=== PATIENT | female | born 1965 ===

== ENCOUNTER → 2020-05-26 08:18 | Outpatient (BNVA) | payer OTHER, SELFPAY | PROVIDERS: PCP Physician Assistant; Visit Provider Internal Medicine | DX: I26.99 Other pulmonary embolism without acute cor pulmonale (principal); Z51.81 Encounter for therapeutic drug level monitoring; Z79.01 Long term (current) use of anticoagulants | CPT/HCPCS: 85610 ==

== ENCOUNTER 2020-05-31 16:06 | Outpatient (REF) | payer OTHER, SELFPAY ==
[2020-05-31 17:17] LABS: Cholesterol 292 mg/dL; HDL Cholesterol 36 mg/dL; Triglycerides 622 mg/dL
[2020-05-31 17:39] LABS: Free T4 (Free Thyroxine) 1.47 ng/dL (0.71-1.85); Thyroid Stimulating Hormone 0.58 mIU/mL (0.32-4.0); Vitamin D 25-OH Total 14.9 ng/mL (>30)
[2020-06-01 08:37] LABS: LDL Cholesterol Direct 133 mg/dL (<100)
== END 2020-05-31 16:07 | disposition home or self-care (01) ==
LOC: HO.LAB 16:06
PROVIDERS: PCP Physician Assistant; Visit Provider Internal Medicine Endocrinology, Diabetes & Metabolism
DX: R73.03 Prediabetes (principal); M32.14 Glomerular disease in systemic lupus erythematosus; E55.9 Vitamin D deficiency, unspecified; Z79.01 Long term (current) use of anticoagulants
CPT/HCPCS: 80061; 82306; 83721; 84439; 84443

== ENCOUNTER → 2020-06-01 14:18 | Outpatient (BNVA) | payer OTHER, SELFPAY | PROVIDERS: PCP Physician Assistant; Referring Provider Physician Assistant; Visit Provider Internal Medicine Endocrinology, Diabetes & Metabolism | DX: Z76.89 Persons encountering health services in other specified circumstances (principal) ==

== ENCOUNTER → 2020-06-23 16:01 | Outpatient (BNVA) | payer OTHER, SELFPAY | PROVIDERS: PCP Physician Assistant; Visit Provider Internal Medicine | DX: I26.99 Other pulmonary embolism without acute cor pulmonale (principal); Z51.81 Encounter for therapeutic drug level monitoring; Z79.01 Long term (current) use of anticoagulants | CPT/HCPCS: 85610; 99211 ==

== ENCOUNTER → 2020-06-30 15:22 | Outpatient (BNVA) | payer OTHER, SELFPAY | PROVIDERS: PCP Physician Assistant; Visit Provider Internal Medicine | DX: I26.99 Other pulmonary embolism without acute cor pulmonale (principal); Z79.01 Long term (current) use of anticoagulants; Z51.81 Encounter for therapeutic drug level monitoring | CPT/HCPCS: 85610; 99211 ==

== ENCOUNTER → 2020-07-09 16:16 | Outpatient (BNVA) | payer OTHER, SELFPAY | PROVIDERS: PCP Physician Assistant; Referring Provider Physician Assistant; Visit Provider Internal Medicine | DX: I26.99 Other pulmonary embolism without acute cor pulmonale (principal); Z51.81 Encounter for therapeutic drug level monitoring; Z79.01 Long term (current) use of anticoagulants | CPT/HCPCS: 85610; 99211 ==

== ENCOUNTER → 2020-07-23 16:06 | Outpatient (BNVA) | payer OTHER, SELFPAY | PROVIDERS: PCP Physician Assistant; Visit Provider Internal Medicine | DX: I26.99 Other pulmonary embolism without acute cor pulmonale (principal); Z51.81 Encounter for therapeutic drug level monitoring; Z79.01 Long term (current) use of anticoagulants | CPT/HCPCS: 85610; 99211 ==

== ENCOUNTER → 2020-07-28 16:08 | Outpatient (BNVA) | payer OTHER, SELFPAY | PROVIDERS: PCP Physician Assistant; Visit Provider Internal Medicine | DX: I26.99 Other pulmonary embolism without acute cor pulmonale (principal); Z79.01 Long term (current) use of anticoagulants; Z51.81 Encounter for therapeutic drug level monitoring | CPT/HCPCS: 85610; 99211 ==

== ENCOUNTER 2020-09-11 07:37 | Outpatient (REF) | payer OTHER, SELFPAY ==
[2020-09-11 08:43] LABS: MANUAL DIFF FLAG NO
[2020-09-11 08:51] LABS: Basophils Percent Auto 0.7 % (0-2); Eosinophils Absolute Auto 0.2 X10*3/uL (0.0-0.4); Eosinophils Percent Auto 3.1 % (0-4); Hematocrit 36.1 % (37-47); Hemoglobin 11.6 g/dl (12.0-16.0); Imm Gran Abs Auto 0.02 X10*3/uL (0.00-0.03); Imm Gran Pct Auto 0.3 % (0.0-0.4); Lymphocytes Absolute Auto 1.5 X10*3/uL (1.2-4.9); Lymphocytes Percent Auto 23.9 % (20-40); Mean Corpuscular HGB Conc 32.1 g/dl (31.0-35.0); Mean Corpuscular Hemoglobin 30.3 pg (27.0-33.0); Mean Corpuscular Volume 94.3 fL (80-98); Mean Platelet Volume 10.5 fL (9.4-12.3); Monocytes Absolute Auto 0.4 X10*3/uL (0.1-1.2); Monocytes Percent Auto 6.6 % (2-11); Neutrophils Percent Auto 65.4 % (45-73); Platelet Count 273 X10*3/uL (160-400); Red Blood Count 3.83 X10*6/uL (4.20-5.50); Red Cell Distribution Width 12.4 % (11.0-16.0); White Blood Count 6.1 X10*3/uL (4.8-10.8)
[2020-09-11 09:06] LABS: Blood Urea Nitrogen 22 mg/dL (9-16); Calcium 8.8 mg/dL (8.4-10.2); Estimated Glomerular Filt Rate 26
[2020-09-11 09:37] LABS: Anion Gap 9 (12-20); Carbon Dioxide 19 mmol/L (22-29); Chloride 117 mmol/L (96-108); Sodium 141 mmol/L (135-145)
[2020-09-13 15:02] LABS: Complement C3 107 mg/dL (83-193)
== END 2020-09-11 07:38 | disposition home or self-care (01) ==
LOC: HO.LAB 07:37
PROVIDERS: PCP Physician Assistant; Visit Provider Internal Medicine Hypertension Specialist
DX: N18.1 Chronic kidney disease, stage 1 (principal); N08 Glomerular disorders in diseases classified elsewhere
CPT/HCPCS: 36415; 80051; 82310; 82565; 84520; 85025; 86160

== ENCOUNTER → 2020-09-21 16:10 | Outpatient (BNVA) | payer OTHER, SELFPAY | PROVIDERS: PCP Physician Assistant; Visit Provider Internal Medicine | DX: I26.99 Other pulmonary embolism without acute cor pulmonale (principal); Z51.81 Encounter for therapeutic drug level monitoring; Z79.01 Long term (current) use of anticoagulants | CPT/HCPCS: 85610; 99211 ==

== ENCOUNTER → 2020-09-27 16:02 | Outpatient (BNVA) | payer OTHER, SELFPAY | PROVIDERS: PCP Physician Assistant; Visit Provider Internal Medicine | DX: I26.99 Other pulmonary embolism without acute cor pulmonale (principal); Z51.81 Encounter for therapeutic drug level monitoring; Z79.01 Long term (current) use of anticoagulants | CPT/HCPCS: 85610; 99211 ==

== ENCOUNTER → 2020-09-30 15:51 | Outpatient (BNVA) | payer OTHER, SELFPAY | PROVIDERS: PCP Physician Assistant; Visit Provider Internal Medicine | DX: I26.99 Other pulmonary embolism without acute cor pulmonale (principal); Z51.81 Encounter for therapeutic drug level monitoring; Z79.01 Long term (current) use of anticoagulants | CPT/HCPCS: 85610; 99211 ==

== ENCOUNTER → 2020-10-18 16:08 | Outpatient (BNVA) | payer OTHER, SELFPAY | PROVIDERS: PCP Physician Assistant; Visit Provider Internal Medicine | DX: I26.99 Other pulmonary embolism without acute cor pulmonale (principal); Z51.81 Encounter for therapeutic drug level monitoring; Z79.01 Long term (current) use of anticoagulants | CPT/HCPCS: 85610; 99211 ==

== ENCOUNTER → 2020-11-03 16:06 | Outpatient (BNVA) | payer OTHER, SELFPAY | PROVIDERS: PCP Physician Assistant; Visit Provider Internal Medicine | DX: I26.99 Other pulmonary embolism without acute cor pulmonale (principal); Z51.81 Encounter for therapeutic drug level monitoring; Z79.01 Long term (current) use of anticoagulants | CPT/HCPCS: 85610; 99211 ==

== ENCOUNTER 2020-11-06 08:27 | Outpatient (REF) | payer OTHER, SELFPAY ==
[2020-11-06 09:42] LABS: Blood Urea Nitrogen 30 mg/dL (9-16); Calcium 9.2 mg/dL (8.4-10.2); Estimated Glomerular Filt Rate 28; Glucose Fasting 117 mg/dL (60-99)
[2020-11-06 10:24] LABS: Anion Gap 11 (12-20); Carbon Dioxide 18 mmol/L (22-29); Chloride 117 mmol/L (96-108); Potassium 3.8 mmol/L (3.3-5.1); Sodium 142 mmol/L (135-145)
== END 2020-11-06 08:28 | disposition home or self-care (01) ==
LOC: HO.LAB 08:27
PROVIDERS: PCP Physician Assistant; Visit Provider Internal Medicine Hypertension Specialist
DX: M32.14 Glomerular disease in systemic lupus erythematosus (principal)
CPT/HCPCS: 36415; 80048

== ENCOUNTER → 2020-12-08 16:12 | Outpatient (BNVA) | payer OTHER, SELFPAY | PROVIDERS: PCP Physician Assistant; Visit Provider Internal Medicine | DX: I26.99 Other pulmonary embolism without acute cor pulmonale (principal); Z51.81 Encounter for therapeutic drug level monitoring; Z79.01 Long term (current) use of anticoagulants | CPT/HCPCS: 85610; 99211 ==

== ENCOUNTER → 2020-12-22 16:05 | Outpatient (BNVA) | payer OTHER, SELFPAY | PROVIDERS: PCP Physician Assistant; Visit Provider Internal Medicine | DX: I26.99 Other pulmonary embolism without acute cor pulmonale (principal); Z51.81 Encounter for therapeutic drug level monitoring; Z79.01 Long term (current) use of anticoagulants | CPT/HCPCS: 85610; 99211 ==

== ENCOUNTER → 2021-01-07 08:59 | Outpatient (BNVA) | payer OTHER, SELFPAY | PROVIDERS: PCP Physician Assistant; Visit Provider Internal Medicine Endocrinology, Diabetes & Metabolism ==

== ENCOUNTER 2021-01-15 10:21 | Outpatient (REF) | payer OTHER, SELFPAY ==
[2021-01-15 11:42] LABS: Cholesterol 244 mg/dL; HDL Cholesterol 33 mg/dL; Triglycerides 633 mg/dL
[2021-01-15 11:55] LABS: Free T4 (Free Thyroxine) 1.45 ng/dL (0.71-1.85); Thyroid Stimulating Hormone 0.06 uIU/mL (0.32-4.0); Vitamin D 25-OH Total 16.6 ng/mL (>30)
[2021-01-16 09:47] LABS: LDL Cholesterol Direct 82 mg/dL (<100)
== END 2021-01-15 10:22 | disposition home or self-care (01) ==
LOC: HO.LAB 10:21
PROVIDERS: PCP Physician Assistant; Visit Provider Internal Medicine Endocrinology, Diabetes & Metabolism
DX: E78.1 Pure hyperglyceridemia (principal); E03.8 Other specified hypothyroidism; E06.3 Autoimmune thyroiditis; E55.9 Vitamin D deficiency, unspecified
CPT/HCPCS: 36415; 80061; 82306; 83721; 84439; 84443

== ENCOUNTER → 2021-01-19 16:23 | Outpatient (BNVA) | payer OTHER, SELFPAY | PROVIDERS: PCP Physician Assistant; Visit Provider Internal Medicine | DX: I26.99 Other pulmonary embolism without acute cor pulmonale (principal); Z51.81 Encounter for therapeutic drug level monitoring; Z79.01 Long term (current) use of anticoagulants | CPT/HCPCS: 85610; 99211 ==

== ENCOUNTER → 2021-02-11 09:44 | Outpatient (BNVA) | payer OTHER, SELFPAY | PROVIDERS: PCP Physician Assistant; Visit Provider Internal Medicine | DX: I26.99 Other pulmonary embolism without acute cor pulmonale (principal); Z51.81 Encounter for therapeutic drug level monitoring; Z79.01 Long term (current) use of anticoagulants | CPT/HCPCS: 85610; 99211 ==

== ENCOUNTER → 2021-05-06 16:31 | Outpatient (BNVA) | payer OTHER, SELFPAY | PROVIDERS: PCP Physician Assistant; Visit Provider Internal Medicine | DX: I26.99 Other pulmonary embolism without acute cor pulmonale (principal); Z51.81 Encounter for therapeutic drug level monitoring; Z79.01 Long term (current) use of anticoagulants | CPT/HCPCS: 85610; 99211 ==

== ENCOUNTER → 2021-06-03 14:53 | Outpatient (BNVA) | payer OTHER, SELFPAY | PROVIDERS: PCP Physician Assistant; Visit Provider Internal Medicine | DX: I26.99 Other pulmonary embolism without acute cor pulmonale (principal); Z51.81 Encounter for therapeutic drug level monitoring; Z79.01 Long term (current) use of anticoagulants | CPT/HCPCS: 85610; 99211 ==

== ENCOUNTER → 2021-06-29 15:34 | Outpatient (BNVA) | payer OTHER, MEDICAID, SELFPAY | PROVIDERS: PCP Physician Assistant; Visit Provider Internal Medicine | DX: I26.99 Other pulmonary embolism without acute cor pulmonale (principal); Z51.81 Encounter for therapeutic drug level monitoring; Z79.01 Long term (current) use of anticoagulants | CPT/HCPCS: 85610; 99211 ==

== ENCOUNTER 2021-07-05 16:20 | Outpatient (REF) | payer OTHER, MEDICAID, SELFPAY ==
[2021-07-05 18:13] LABS: Anion Gap 11 (12-20); Blood Urea Nitrogen 32 mg/dL (9-16); Calcium 10.1 mg/dL (8.4-10.2); Carbon Dioxide 17 mmol/L (22-29); Chloride 116 mmol/L (96-108); Estimated Glomerular Filt Rate 26; Glucose Random 98 mg/dL (60-115); Potassium 3.8 mmol/L (3.3-5.1); Sodium 140 mmol/L (135-145)
[2021-07-05 18:31] LABS: Free T4 (Free Thyroxine) 1.52 ng/dL (0.71-1.85); Thyroid Stimulating Hormone 0.01 uIU/mL (0.32-4.0)
[2021-07-07 04:57] LABS: Triiodothyronine T3 Total 84 ng/dL (76-181)
[2021-07-08 15:26] LABS: Thyroid Stimulating Immunoglob <89 % baseline (<140)
[2021-07-08 21:42] LABS: Thyrotropin Receptor Antibody <1.00 IU/L (<=2.00)
[2021-07-11 11:21] LABS: FT4 by Equilib. Dialysis 2.8 ng/dL (0.9-2.2)
== END 2021-07-05 16:21 | disposition home or self-care (01) ==
LOC: HO.LAB 16:20
PROVIDERS: Absent Provider Internal Medicine Hypertension Specialist; PCP Physician Assistant; Visit Provider Internal Medicine Endocrinology, Diabetes & Metabolism
DX: M32.14 Glomerular disease in systemic lupus erythematosus (principal); E03.8 Other specified hypothyroidism; E06.3 Autoimmune thyroiditis
CPT/HCPCS: 36415; 80048; 83520; 84439; 84443; 84445; 84480

== ENCOUNTER → 2021-07-07 07:20 | Outpatient (BNVA) | payer OTHER, MEDICAID, SELFPAY | PROVIDERS: PCP Physician Assistant; Visit Provider Internal Medicine ==

== ENCOUNTER 2021-08-04 10:41 | Outpatient (REF) | payer OTHER, MEDICAID, SELFPAY ==
[2021-08-04 12:26] LABS: COVID-19 Test Negative (Negative)
== END 2021-08-04 10:42 | disposition home or self-care (01) ==
LOC: HO.LAB 10:41
PROVIDERS: Visit Provider Internal Medicine
DX: Z20.822 Contact with and (suspected) exposure to COVID-19 (principal)
CPT/HCPCS: 36415; 87635; C9803

== ENCOUNTER → 2021-08-25 16:07 | Outpatient (BNVA) | payer OTHER, MEDICAID, SELFPAY | PROVIDERS: PCP Physician Assistant; Visit Provider Internal Medicine | DX: I26.99 Other pulmonary embolism without acute cor pulmonale (principal); Z51.81 Encounter for therapeutic drug level monitoring; Z79.01 Long term (current) use of anticoagulants | CPT/HCPCS: 85610; 99211 ==

== ENCOUNTER → 2021-09-22 16:23 | Outpatient (BNVA) | payer OTHER, MEDICAID, SELFPAY | PROVIDERS: PCP Physician Assistant; Visit Provider Internal Medicine | DX: I26.99 Other pulmonary embolism without acute cor pulmonale (principal); Z51.81 Encounter for therapeutic drug level monitoring; Z79.01 Long term (current) use of anticoagulants | CPT/HCPCS: 85610; 99211 ==

== ENCOUNTER → 2021-10-06 16:13 | Outpatient (BNVA) | payer OTHER, MEDICAID, SELFPAY | PROVIDERS: PCP Physician Assistant; Visit Provider Internal Medicine | DX: I26.99 Other pulmonary embolism without acute cor pulmonale (principal); Z51.81 Encounter for therapeutic drug level monitoring; Z79.01 Long term (current) use of anticoagulants | CPT/HCPCS: 85610; 99211 ==

== ENCOUNTER 2021-10-15 07:58 | Outpatient (REF) | payer OTHER, MEDICAID, SELFPAY ==
[2021-10-15 09:49] LABS: Alanine Aminotransferase 25 U/L (0-31); Albumin Level 3.5 g/dL (3.5-5.0); Alkaline Phosphatase 113 U/L (39-117); Anion Gap 10 (12-20); Aspartate Amino Transferase 27 U/L (5-31); Bilirubin Total 0.6 mg/dL (0.0-1.0); Blood Urea Nitrogen 42 mg/dL (9-16); Calcium 10.5 mg/dL (8.4-10.2); Carbon Dioxide 18 mmol/L (22-29); Chloride 116 mmol/L (96-108); Cholesterol 208 mg/dL; Estimated Glomerular Filt Rate 27; Glucose Random 101 mg/dL (60-115); HDL Cholesterol 31 mg/dL; LDL Cholesterol Calculated 117 mg/dl; Potassium 4.5 mmol/L (3.3-5.1); Sodium 139 mmol/L (135-145); Total Protein 6.8 g/dL (6.5-8.0); Triglycerides 301 mg/dL
[2021-10-15 09:57] LABS: Creatinine Urine 85.43 mg/dL
[2021-10-15 10:08] LABS: Protein/Creatinine Ratio, Ur 8.18 (<0.2); Total Protein Urine Random 699 mg/dL (<12)
[2021-10-15 10:12] LABS: Free T4 (Free Thyroxine) 1.67 ng/dL (0.71-1.85); Thyroid Stimulating Hormone 0.01 uIU/mL (0.32-4.0)
[2021-10-17 05:21] LABS: LDL Cholesterol Direct 105 mg/dL (<100)
[2021-10-17 17:16] LABS: Thyroglobulin Antibodies >1000 IU/mL (< or = 1); Thyroid Peroxidase Antibodies 1 IU/mL (<9)
== END 2021-10-15 07:59 | disposition home or self-care (01) ==
LOC: HO.LAB 07:58
PROVIDERS: Absent Provider Internal Medicine Hypertension Specialist; PCP Physician Assistant; Visit Provider Internal Medicine
DX: E55.9 Vitamin D deficiency, unspecified (principal); N18.4 Chronic kidney disease, stage 4 (severe); E03.8 Other specified hypothyroidism; E06.3 Autoimmune thyroiditis; E78.1 Pure hyperglyceridemia
CPT/HCPCS: 36415; 80053; 80061; 82306; 83721; 84156; 84439; 84443; 86376; 86800

== ENCOUNTER → 2021-10-19 07:31 | Outpatient (BNVA) | payer OTHER, MEDICAID, SELFPAY | PROVIDERS: PCP Physician Assistant; Visit Provider Internal Medicine | DX: E06.3 Autoimmune thyroiditis (principal); E03.8 Other specified hypothyroidism; E55.9 Vitamin D deficiency, unspecified; E78.1 Pure hyperglyceridemia; F17.210 Nicotine dependence, cigarettes, uncomplicated; Z79.899 Other long term (current) drug therapy | CPT/HCPCS: Q3014 ==

== ENCOUNTER 2021-11-10 15:11 | Outpatient (REF) | payer OTHER, MEDICAID, SELFPAY ==
--- NOTE | ~2021-11-10 | US_ITS ---
EXAMINATION: US THYROID CLINICAL INFORMATION: Other specified hypothyroidism COMPARISON: None TECHNIQUE: Linear transducer grayscale and color Doppler examination with attention to the region of the thyroid. FINDINGS: SIZE: Measurements of the thyroid lobes and nodules are given in sagittal, anteroposterior and transverse dimensions respectively. Right Thyroid Lobe: 2.3 x 0.7 x 0.86 cm, volume 0.74 mL. Parenchyma: The gland echotexture is homogeneous. Thyroid vascularity is normal. Left Thyroid Lobe: 1.34 x 0.42 x 0.45 cm, volume 0.13 mL. Parenchyma: The gland echotexture is homogeneous. Thyroid vascularity is normal. Isthmus: 0.27 cm in maximum AP dimension. No focal thyroid nodule is seen. NODES: No lymphadenopathy is seen in the tissue surrounding the thyroid gland. US/US thyroid IMPRESSION: Very small thyroid gland. No nodule seen.
== END 2021-11-10 15:12 | disposition home or self-care (01) ==
LOC: HO.HMGCX 15:11
PROVIDERS: PCP Physician Assistant; Visit Provider Internal Medicine
DX: E03.8 Other specified hypothyroidism (principal); E06.3 Autoimmune thyroiditis
CPT/HCPCS: 76536

== ENCOUNTER → 2021-11-17 16:20 | Outpatient (BNVA) | payer OTHER, MEDICAID, SELFPAY | PROVIDERS: PCP Physician Assistant; Visit Provider Internal Medicine | DX: I26.99 Other pulmonary embolism without acute cor pulmonale (principal); Z79.01 Long term (current) use of anticoagulants; Z51.81 Encounter for therapeutic drug level monitoring | CPT/HCPCS: 85610; 99211 ==

== ENCOUNTER → 2021-11-25 16:17 | Outpatient (BNVA) | payer OTHER, MEDICAID, SELFPAY | PROVIDERS: PCP Physician Assistant; Visit Provider Internal Medicine | DX: I26.99 Other pulmonary embolism without acute cor pulmonale (principal); Z79.01 Long term (current) use of anticoagulants; Z51.81 Encounter for therapeutic drug level monitoring | CPT/HCPCS: 85610; 99211 ==

== ENCOUNTER → 2021-12-09 16:09 | Outpatient (BNVA) | payer OTHER, MEDICAID, SELFPAY | PROVIDERS: PCP Physician Assistant; Visit Provider Internal Medicine | DX: I26.99 Other pulmonary embolism without acute cor pulmonale (principal); Z79.01 Long term (current) use of anticoagulants; Z51.81 Encounter for therapeutic drug level monitoring | CPT/HCPCS: 85610; 99211 ==

== ENCOUNTER → 2021-12-16 16:16 | Outpatient (BNVA) | payer OTHER, MEDICAID, SELFPAY | PROVIDERS: PCP Physician Assistant; Visit Provider Internal Medicine | DX: I26.99 Other pulmonary embolism without acute cor pulmonale (principal); Z79.01 Long term (current) use of anticoagulants; Z51.81 Encounter for therapeutic drug level monitoring | CPT/HCPCS: 85610; 99211 ==

== ENCOUNTER → 2021-12-26 16:16 | Outpatient (BNVA) | payer OTHER, MEDICAID, SELFPAY | PROVIDERS: PCP Physician Assistant; Visit Provider Internal Medicine | DX: I26.99 Other pulmonary embolism without acute cor pulmonale (principal); Z79.01 Long term (current) use of anticoagulants; Z51.81 Encounter for therapeutic drug level monitoring | CPT/HCPCS: 85610; 99211 ==

== ENCOUNTER 2022-01-07 07:00 | Outpatient (REF) | payer OTHER, MEDICAID, SELFPAY ==
[2022-01-07 07:57] LABS: Hematocrit 37.6 % (37.0-47.0); Mean Corpuscular HGB Conc 31.9 g/dl (31.0-35.0); Mean Corpuscular Hemoglobin 30.4 pg (27.0-33.0); Mean Corpuscular Volume 95.2 fL (80.0-98.0); Platelet Count 279 X10*3/uL (160-400); Red Blood Count 3.95 X10*6/uL (4.20-5.50); Red Cell Distribution Width 13.5 % (11.0-16.0); White Blood Count 6.2 X10*3/uL (4.8-10.8)
[2022-01-07 08:18] LABS: Appearance Urine CLEAR; Color Urine YELLOW; Glucose Urine UA 250 MG/DL (NEG); Leukocyte Esterase Urine NEG (NEG); Nitrite Urine NEG (NEG); PH 6.5 (5.0-8.0); Urine Blood 2+ (NEG); Urine Ketones NEG (NEG); Urine Protein 3+ MG/DL (NEG-TRACE)
[2022-01-07 08:40] LABS: Creatinine Urine 78.86 mg/dL
[2022-01-07 08:44] LABS: Anion Gap 13 (12-20); Blood Urea Nitrogen 37 mg/dL (9-16); Calcium 9.4 mg/dL (8.4-10.2); Carbon Dioxide 17 mmol/L (22-29); Chloride 118 mmol/L (96-108); Estimated Glomerular Filt Rate 15; Potassium 4.4 mmol/L (3.3-5.1); Sodium 141 mmol/L (135-145)
[2022-01-07 08:49] LABS: Squamous Epithelial Cell Urine 2+ /LPF
[2022-01-07 08:56] LABS: Protein/Creatinine Ratio, Ur 13.83 (<0.2); Total Protein Urine Random 1091 mg/dL (<12)
[2022-01-09 15:53] LABS: Calcium (PTHI) 9.4 mg/dL (8.6-10.4); PTHI 114 pg/mL (16-77)
== END 2022-01-07 07:01 | disposition home or self-care (01) ==
LOC: HO.LAB 07:00
PROVIDERS: Absent Provider Internal Medicine Hypertension Specialist; PCP Physician Assistant; Visit Provider Internal Medicine
DX: N18.4 Chronic kidney disease, stage 4 (severe) (principal); M32.14 Glomerular disease in systemic lupus erythematosus
CPT/HCPCS: 36415; 80051; 81001; 81003; 82310; 82565; 83970; 84156; 84520; 85027

== ENCOUNTER → 2022-01-09 16:12 | Outpatient (BNVA) | payer OTHER, MEDICAID, SELFPAY | PROVIDERS: PCP Physician Assistant; Visit Provider Internal Medicine | DX: I26.99 Other pulmonary embolism without acute cor pulmonale (principal); Z51.81 Encounter for therapeutic drug level monitoring; Z79.01 Long term (current) use of anticoagulants | CPT/HCPCS: 85610; 99211 ==

== ENCOUNTER 2022-01-30 06:22 | Outpatient (REF) | payer OTHER, MEDICAID, SELFPAY ==
[2022-01-30 08:17] LABS: Alanine Aminotransferase 26 U/L (0-31); Albumin Level 3.1 g/dL (3.5-5.0); Alkaline Phosphatase 109 U/L (39-117); Anion Gap 9 (12-20); Aspartate Amino Transferase 69 U/L (5-31); Bilirubin Total 0.4 mg/dL (0.0-1.0); Blood Urea Nitrogen 41 mg/dL (9-16); Carbon Dioxide 18 mmol/L (22-29); Chloride 117 mmol/L (96-108); Cholesterol 268 mg/dL; Estimated Glomerular Filt Rate 15; Glucose Random 108 mg/dL (60-115); HDL Cholesterol 35 mg/dL; LDL Cholesterol Calculated 158 mg/dl; Potassium 4.1 mmol/L (3.3-5.1); Sodium 140 mmol/L (135-145); Triglycerides 379 mg/dL
[2022-01-30 08:33] LABS: Free T4 (Free Thyroxine) 1.15 ng/dL (0.71-1.85); Thyroid Stimulating Hormone 0.05 uIU/mL (0.32-4.0); Vitamin D 25-OH Total 17.2 ng/mL (>30)
[2022-01-31 15:52] LABS: Calcium (PTHI) 9.2 mg/dL (8.6-10.4); PTHI 157 pg/mL (16-77)
[2022-02-01 04:29] LABS: LDL Cholesterol Direct 128 mg/dL (<100)
== END 2022-01-30 06:23 | disposition home or self-care (01) ==
LOC: HO.LAB 06:22
PROVIDERS: PCP Physician Assistant; Visit Provider Internal Medicine
DX: E06.3 Autoimmune thyroiditis (principal); E55.9 Vitamin D deficiency, unspecified; E78.1 Pure hyperglyceridemia; E03.8 Other specified hypothyroidism
CPT/HCPCS: 36415; 80053; 80061; 82306; 83721; 83970; 84100; 84439; 84443

== ENCOUNTER → 2022-02-02 16:10 | Outpatient (BNVA) | payer OTHER, MEDICAID, SELFPAY | PROVIDERS: PCP Physician Assistant; Visit Provider Internal Medicine | DX: I26.99 Other pulmonary embolism without acute cor pulmonale (principal); Z51.81 Encounter for therapeutic drug level monitoring; Z79.01 Long term (current) use of anticoagulants | CPT/HCPCS: 85610; 99211 ==

== ENCOUNTER → 2022-02-23 16:09 | Outpatient (BNVA) | payer OTHER, MEDICAID, SELFPAY | PROVIDERS: PCP Physician Assistant; Visit Provider Internal Medicine | DX: I26.99 Other pulmonary embolism without acute cor pulmonale (principal); Z51.81 Encounter for therapeutic drug level monitoring; Z79.01 Long term (current) use of anticoagulants | CPT/HCPCS: 85610; 99211 ==

== ENCOUNTER 2022-03-08 06:08 | Outpatient (REF) | payer OTHER, MEDICAID, SELFPAY ==
[2022-03-08 07:34] LABS: Hemoglobin 11.3 g/dl (12.0-16.0); Mean Corpuscular HGB Conc 32.3 g/dl (31.0-35.0); Mean Corpuscular Hemoglobin 30.5 pg (27.0-33.0); Mean Corpuscular Volume 94.6 fL (80.0-98.0); Mean Platelet Volume 10.9 fL (9.4-12.3); Platelet Count 271 X10*3/uL (160-400); Red Cell Distribution Width 13.2 % (11.0-16.0); White Blood Count 6.6 X10*3/uL (4.8-10.8)
[2022-03-08 08:03] LABS: Anion Gap 12 (12-20); Blood Urea Nitrogen 37 mg/dL (9-16); Calcium 8.9 mg/dL (8.4-10.2); Carbon Dioxide 15 mmol/L (22-29); Chloride 119 mmol/L (96-108); Estimated Glomerular Filt Rate 14; Potassium 4.3 mmol/L (3.3-5.1); Sodium 142 mmol/L (135-145)
[2022-03-08 08:35] LABS: Appearance Urine HAZY; Color Urine YELLOW; Glucose Urine UA 250 MG/DL (NEG); Leukocyte Esterase Urine NEG (NEG); Nitrite Urine NEG (NEG); PH 6.5 (5.0-8.0); Specific Gravity - Urine 1.015 (1.005-1.025); Urine Blood 2+ (NEG); Urine Ketones NEG (NEG); Urine Protein 3+ MG/DL (NEG-TRACE)
[2022-03-08 08:49] LABS: Squamous Epithelial Cell Urine 2+ /LPF
[2022-03-08 08:52] LABS: Creatinine Urine 84.48 mg/dL
[2022-03-08 09:08] LABS: Protein/Creatinine Ratio, Ur 12.63 (<0.2); Total Protein Urine Random 1067 mg/dL (<12)
[2022-03-09 14:13] LABS: Calcium (PTHI) 9.1 mg/dL (8.6-10.4); PTHI 113 pg/mL (16-77)
== END 2022-03-08 06:09 | disposition home or self-care (01) ==
LOC: HO.LAB 06:08
PROVIDERS: Absent Provider Internal Medicine Hypertension Specialist; PCP Physician Assistant; Visit Provider Internal Medicine
DX: N18.4 Chronic kidney disease, stage 4 (severe) (principal)
CPT/HCPCS: 36415; 80051; 81001; 82310; 82565; 83970; 84156; 84520; 85027

== ENCOUNTER → 2022-03-27 11:26 | Outpatient (BNVA) | payer OTHER, MEDICAID, SELFPAY | PROVIDERS: PCP Physician Assistant; Visit Provider Internal Medicine | DX: I26.99 Other pulmonary embolism without acute cor pulmonale (principal); Z51.81 Encounter for therapeutic drug level monitoring; Z79.01 Long term (current) use of anticoagulants | CPT/HCPCS: 85610; 99211 ==

== ENCOUNTER 2022-04-08 10:43 | Emergency (ER) | payer OTHER, MEDICAID, SELFPAY ==
[2022-04-08 10:45] VITALS: BP 140/91; PULSE 95; RESP 20; TEMP 36.2; O2SAT 97; BMI 22.1
--- NOTE | 2022-04-08 12:17 | ED_ITS ---
HPI - General Adult General Chief complaint: Extremity Injury, Lower Stated complaint: Leg Spasms Time Seen by Provider: 04/08/22 12:03 History of Present Illness HPI narrative: patient complains of muscle cramping in arms and legs getting worse over past few days, there is no back pain, no numbness or weakness, no vomiting She does have renal insufficiency which has been worsening over past recent months and is followed by Renal Related Data Home Medications Medication Instructions Recorded Confirmed prednisone 10 mg tablet 10 mg PO DAILY 06/01/20 04/06/22 fluocinonide 0.05 % topical appl topical 01/07/21 04/06/22 solution gabapentin 100 mg capsule 100 mg PO DAILY 01/07/21 04/06/22 melatonin 1 mg/mL oral liquid 2 mg PO BEDTIME 12/16/21 04/06/22 (Children's Sleep (melatonin)) Previous Rx's Medication Instructions Recorded loratadine 10 mg tablet 10 mg PO DAILY 14 days #14 tabs 06/08/21 fluticasone propionate 50 1 spray intranasal DAILY 14 days 07/04/21 mcg/actuation nasal #150 mL spray,suspension (Flonase Allergy Relief) warfarin 5 mg tablet 5 mg PO DAILY #90 tabs 02/10/22 cholecalciferol (vitamin D3) 50 100 mcg PO DAILY 30 days #60 caps 03/22/22 mcg (2,000 unit) capsule levothyroxine 125 mcg tablet 125 mcg PO DAILY 30 days #30 tabs 03/22/22 clobetasol 0.05 % scalp solution 1 appl topical DAILY #50 mL 04/06/22 lorazepam 0.5 mg tablet 0.5 mg PO BEDTIME anxiety 7 days 04/06/22 #7 tabs lorazepam 0.5 mg tablet (Ativan) 0.5 mg PO BEDTIME PRN muscle 04/08/22 spasm #5 tabs lorazepam 0.5 mg tablet (Ativan) 0.5 mg PO BID PRN muscle spasm 04/08/22 #14 tabs Allergies Allergy/AdvReac Type Severity Reaction Status Date / Time cephalexin [From Keflex] Allergy Unknown RED+ITCHY,R Verified 04/06/22 16:24 BE Cephalosporins Allergy Unknown RED+ITCHY Verified 04/06/22 16:24 [CEPHALOSPORINS] Sulfa (Sulfonamide Allergy Unknown RED+ITCHY Verified 04/06/22 16:24 Antibiotics) [SULFA(SULFONAMIDE ANTIBIOTICS)] Review of Systems Review of Systems: positive for cramping muscles in legs and arms Negatives are no fever no chills no dizziness weakness no fainting no feeling faint no headache no confusion no vision changes no stiff neck no neck pain no chest pain no shortness of breath no palpitations no abdominal pain no nausea vomiting or diarrhea no dysuria no frequency no numbness no weakness no tingling Yes all other systems are reviewed and are negative PMFSH Past Medical History Source: nursing notes reviewed Medical History History of pulmonary embolism Hypertriglyceridemia Hypothyroidism Prediabetes SLE glomerulonephritis syndrome Vitamin D deficiency Surgical History Hx of tubal ligation Family History Family History (Updated 04/06/22 @ 16:31 by Franklin Sanchez PA-C) Father Family history unknown Mother Hypertension Diabetes Deep vein thrombosis CVA (cerebral vascular accident) Brother CVA (cerebral vascular accident), Onset Age: 48 Brother CVA (cerebral vascular accident), Onset Age: 38 Social History Social History (Updated 04/06/22 @ 16:31 by Franklin Sanchez PA-C) Housing: House Alcohol intake: never Patient Tobacco Use Status: Former Tobacco user Quit Date: 03/03/22 e-Cigarette/Vaping Use: Never Used Advance Directives: No Advance Directives Information Provided: Yes service: No Current occupational status: employed Current occupation: [employer] Cognitive needs: No Hearing needs: No Vision needs: No Physical Exam ED Vital Signs: Vital Signs - 24 hr 04/08/22 10:45 04/08/22 12:49 04/08/22 14:53 Temperature 97.2 F 97.5 F Pulse Rate 95 70 71 Respiratory Rate 20 16 Blood Pressure 140/91 H 113/79 132/64 Pulse Oximetry 97 97 99 Oxygen Delivery Method Room Air Room Air Room Air 04/08/22 17:36 Temperature Pulse Rate 77 Respiratory Rate 16 Blood Pressure 120/62 Pulse Oximetry 97 Oxygen Delivery Method Room Air BMI result Body Mass Index 22.1 general appearance is no acute distress Head is normocephalic atraumatic Pupils equal round react light extraocular motions are intact The pharynx is clear mucous membranes moist Neck is supple Chest clear to auscultation bilateral Heart no murmur auscultated Abdomen soft nontender Extremities full range of motion x4 No edema, no calf tenderness or swelling Skin no rash Neuro gait and balance are normal, interaction both expression and comprehension are normal, motor is 5/5 x4, sensation is intact and symmetrical in extremities, cranial nerves 2-12 intact as tested Course Course Course Narrative: patient creatinine is now 3.6 with BUN of 65, GFR was 13 which is somewhat worse than the previous, but potassium is normal, sodium is normal INR was 3.9 Case was discussed with attending physician Andi who advised give a L of fluids as well as increased daily prednisone from 10 mg to 20 mg I also called her life skills consultant as she has had some trouble making an appointment for a biopsy, as well as to communicate the worsening renal function They said they agreed with that plan and discharge the patient and they will follow closely After hydration and an Ativan the patient felt much better with no leg spasm and was tolerating p.o. and ambulating easily and symptom-free and was discharged Medical Decision Making Lab Data Lab results reviewed: Yes I reviewed the patient's lab results. Result diagrams: 04/08/22 12:46 04/08/22 16:17 Labs: Lab Results 04/08/22 04/08/22 04/08/22 Range/Units 12:35 12:35 12:46 WBC 9.5 (4.8-10.8) X10*3/uL RBC 3.86 L (4.20-5.50) X10*6/uL Hgb 11.8 L (12.0-16.0) g/dl Hct 35.1 L (37.0-47.0) % MCV 90.9 (80.0-98.0) fL MCH 30.6 (27.0-33.0) pg MCHC 33.6 (31.0-35.0) g/dl RDW 12.5 (11.0-16.0) % Plt Count 288 (160-400) X10*3/uL MPV 11.1 (9.4-12.3) fL Immature Gran % (Auto) 0.4 (0.0-0.4) % Neut % (Auto) 89.2 H (45-73) % Lymph % (Auto) 8.0 L (20-40) % [place] % (Auto) 2.0 (2-11) % Eos % (Auto) 0.2 (0-4) % Baso % (Auto) 0.2 (0-2) % Lymph # (Auto) 0.8 L (1.2-4.9) X10*3/uL [place] # (Auto) 0.2 (0.1-1.2) X10*3/uL Eos # (Auto) 0.0 (0.0-0.4) X10*3/uL Baso # (Auto) 0.0 (0.0-0.2) X10*3/uL Abs Immat Gran (auto) 0.04 H (0.00-0.03) X10*3/uL Absolute Neuts (auto) 8.5 H (2.0-8.3) x10*3/uL Absolute Nucleated RBC 0.000 (0.0-0.012) X10*3/uL Nucleated RBC % (auto) 0.0 (0.0-0.2) /100WBC PT 47.0 H (10.0-13.1) SEC INR 3.9 H (0.9-1.1) Sodium 137 (135-145) mmol/L Potassium 4.3 (3.3-5.1) mmol/L Chloride 114 H (96-108) mmol/L Carbon Dioxide 13 L (22-29) mmol/L Anion Gap 14 (12-20) BUN 65 H D (9-16) mg/dL Creatinine 3.60 H (0.5-1.4) mg/dL Estim Creat Clear Calc 14.4 Estimated GFR 13 Random Glucose 120 H (60-115) mg/dL Calcium 9.0 (8.4-10.2) mg/dL Total Bilirubin 0.5 (0.0-1.0) mg/dL Direct Bilirubin < 0.2 (0.0-0.5) mg/dL AST 25 D (5-31) U/L ALT 17 (0-31) U/L Alkaline Phosphatase 84 D (39-117) U/L Total Creatine Kinase 272 H (26-140) U/L C-Reactive Protein (< or = 0.50) mg/dL Total Protein 6.1 L (6.5-8.0) g/dL Albumin 3.2 L (3.5-5.0) g/dL Acetone, Qual (Negative) 04/08/22 Range/Units 16:17 WBC (4.8-10.8) X10*3/uL RBC (4.20-5.50) X10*6/uL Hgb (12.0-16.0) g/dl Hct (37.0-47.0) % MCV (80.0-98.0) fL MCH (27.0-33.0) pg MCHC (31.0-35.0) g/dl RDW (11.0-16.0) % Plt Count (160-400) X10*3/uL MPV (9.4-12.3) fL Immature Gran % (Auto) (0.0-0.4) % Neut % (Auto) (45-73) % Lymph % (Auto) (20-40) % [place] % (Auto) (2-11) % Eos % (Auto) (0-4) % Baso % (Auto) (0-2) % Lymph # (Auto) (1.2-4.9) X10*3/uL [place] # (Auto) (0.1-1.2) X10*3/uL Eos # (Auto) (0.0-0.4) X10*3/uL Baso # (Auto) (0.0-0.2) X10*3/uL Abs Immat Gran (auto) (0.00-0.03) X10*3/uL Absolute Neuts (auto) (2.0-8.3) x10*3/uL Absolute Nucleated RBC (0.0-0.012) X10*3/uL Nucleated RBC % (auto) (0.0-0.2) /100WBC PT (10.0-13.1) SEC INR (0.9-1.1) Sodium (135-145) mmol/L Potassium (3.3-5.1) mmol/L Chloride (96-108) mmol/L Carbon Dioxide (22-29) mmol/L Anion Gap (12-20) BUN 63 H (9-16) mg/dL Creatinine 3.44 H (0.5-1.4) mg/dL Estim Creat Clear Calc 15.0 Estimated GFR 14 Random Glucose (60-115) mg/dL Calcium (8.4-10.2) mg/dL Total Bilirubin (0.0-1.0) mg/dL Direct Bilirubin (0.0-0.5) mg/dL AST (5-31) U/L ALT (0-31) U/L Alkaline Phosphatase (39-117) U/L Total Creatine Kinase (26-140) U/L C-Reactive Protein 0.14 (< or = 0.50) mg/dL Total Protein (6.5-8.0) g/dL Albumin (3.5-5.0) g/dL Acetone, Qual Negative (Negative) Discharge Plan Discharge Clinical Impression: Chronic renal insufficiency, Bilateral leg cramps Patient Disposition: Home, Self-Care Additional Instructions: your kidney function has worsened so follow closely with your kidney doctor I left a message with his partner that you have been trying to make an appointment for the biopsy he recommended so called the office on Sunday when they are open and find out when you can follow-up for this biopsy Your INR was slightly high so I would hold tonight's Coumadin and call the clinic, the number was 3.9 Ativan is functional as a muscle relaxer so you can use it at the worst moments when her legs are cramping We recommend raising the prednisone from 10 mg once a day to 20 mg, 2 tablets, but make sure you talk to the renal doctor on Sunday or Sunday to make sure he agrees with this Return any time any worse condition or any concerns Prescriptions: New lorazepam [Ativan] 0.5 mg tablet 0.5 mg PO BID PRN (Reason: muscle spasm) Qty: 14 0RF lorazepam [Ativan] 0.5 mg tablet 0.5 mg PO BEDTIME PRN (Reason: muscle spasm) Qty: 5 0RF No Action fluticasone propionate [Flonase Allergy Relief] 50 mcg/actuation spray,suspension 1 spray intranasal DAILY 14 Days Qty: 150 3RF Rx Instructions: administer into each nostril warfarin 5 mg tablet 5 mg PO DAILY Qty: 90 3RF Protocol: Dose Management Condition: Sunday (Week One) Dose/Route: 2.5 mg Instruction: 0.5 x 5 mg t ablets Condition: Sunday Dose/Route: 5 mg Instruction: 1 x 5 mg tablet Condition: Sunday Dose/Route: 2.5 mg Instruction: 0.5 x 5 mg tablets Condition: Sunday Dose/Route: 5 mg Instruction: 1 x 5 mg tablet Condition: Dose/Route: 2.5 mg Instruction: 0.5 x 5 mg tablets Condition: Sunday Dose/Route: 5 mg Instruction: 1 x 5 mg tablet Condition: Sunday Dose/Route: 2.5 mg Instruction: 0.5 x 5 mg tablets Condition: Sunday (Week Two) Dose/Route: 2.5 mg Instruction: 0.5 x 5 mg tablets Condition: Sunday Dose/Route: 5 mg Instruction: 1 x 5 mg tablet Condition: Sunday Dose/Route: 2.5 mg Instruction: 0.5 x 5 mg tablets Condition: Sunday Dose/Route: 5 mg Instruction: 1 x 5 mg tablet Condition: Dose/Route: 2.5 mg Instruction: 0.5 x 5 mg tablets Condition: Sunday Dose/Route: 5 mg Instruction: 1 x 5 mg tablet Condition: Sunday Dose/Route: 2.5 mg Instruction: 0.5 x 5 mg tablets Protocol Text: Adjustment Start Date: Sunday03/27/22 INR Value: 2.6 INR Date: 03/27/22 Recheck Date: 04/06/22 loratadine 10 mg tablet 10 mg PO DAILY 14 Days Qty: 14 0RF clobetasol 0.05 % solution 1 appl topical DAILY Qty: 50 2RF lorazepam 0.5 mg tablet 0.5 mg PO BEDTIME 7 Days Qty: 7 0RF gabapentin 100 mg capsule 100 mg PO DAILY fluocinonide 0.05 % solution topical prednisone 10 mg tablet 10 mg PO DAILY levothyroxine 125 mcg tablet 125 mcg PO DAILY 30 Days Qty: 30 6RF cholecalciferol (vitamin D3) 50 mcg (2,000 unit) capsule 100 mcg PO DAILY 30 Days Qty: 60 11RF melatonin [Children's Sleep (melatonin)] 1 mg/mL liquid 2 mg PO BEDTIME Referrals: Roe Mrorissey MD [Physician] - ( worsening renal function) Interventions: ED Discharge Assessment Last Done: 04/08/22 17:59 Discharge Date/Time: 04/08/22 17:59
[2022-04-08 12:49] VITALS: BP 113/79; PULSE 70; O2SAT 97
[2022-04-08 12:50] LABS: MANUAL DIFF FLAG NO
[2022-04-08 12:51] LABS: INTERNATIONAL NORM RATIO 3.9 (0.9-1.1)
[2022-04-08 12:55] LABS: Basophils Percent Auto 0.2 % (0-2); Eosinophils Percent Auto 0.2 % (0-4); Hematocrit 35.1 % (37.0-47.0); Hemoglobin 11.8 g/dl (12.0-16.0); Imm Gran Abs Auto 0.04 X10*3/uL (0.00-0.03); Imm Gran Pct Auto 0.4 % (0.0-0.4); Lymphocytes Absolute Auto 0.8 X10*3/uL (1.2-4.9); Mean Corpuscular HGB Conc 33.6 g/dl (31.0-35.0); Mean Corpuscular Hemoglobin 30.6 pg (27.0-33.0); Mean Corpuscular Volume 90.9 fL (80.0-98.0); Mean Platelet Volume 11.1 fL (9.4-12.3); Monocytes Absolute Auto 0.2 X10*3/uL (0.1-1.2); Neutrophils Absolute Auto 8.5 x10*3/uL (2.0-8.3); Neutrophils Percent Auto 89.2 % (45-73); Platelet Count 288 X10*3/uL (160-400); Red Blood Count 3.86 X10*6/uL (4.20-5.50); Red Cell Distribution Width 12.5 % (11.0-16.0); White Blood Count 9.5 X10*3/uL (4.8-10.8)
[2022-04-08 13:02] LABS: Alanine Aminotransferase 17 U/L (0-31); Albumin Level 3.2 g/dL (3.5-5.0); Alkaline Phosphatase 84 U/L (39-117); Anion Gap 14 (12-20); Aspartate Amino Transferase 25 U/L (5-31); Bilirubin Direct < 0.2 mg/dL (0.0-0.5); Bilirubin Total 0.5 mg/dL (0.0-1.0); Blood Urea Nitrogen 65 mg/dL (9-16); Carbon Dioxide 13 mmol/L (22-29); Chloride 114 mmol/L (96-108); Creatinine Clr Calc Pharmacy 14.4; Estimated Glomerular Filt Rate 13; Glucose Random 120 mg/dL (60-115); Potassium 4.3 mmol/L (3.3-5.1); Sodium 137 mmol/L (135-145); Total Protein 6.1 g/dL (6.5-8.0)
[2022-04-08] MEDS: LORazepam 1 MG TABLET PO (13:27)
[2022-04-08] MEDS: 0.9 % Sodium Chloride 1,000 ML 999 ML IVCONT (13:40)
[2022-04-08 14:53] VITALS: BP 132/64; PULSE 71; RESP 16; TEMP 36.4; O2SAT 99
[2022-04-08] MEDS: Acetaminophen 325 MG TABLET 650 MG PO (15:33)
[2022-04-08 16:46] LABS: Blood Urea Nitrogen 63 mg/dL (9-16); Estimated Glomerular Filt Rate 14
[2022-04-08 16:59] LABS: C Reactive Protein 0.14 mg/dL (< or = 0.50)
[2022-04-08 17:16] LABS: Acetone, serum QL Negative (Negative)
[2022-04-08 17:36] VITALS: BP 120/62; PULSE 77; RESP 16; O2SAT 97
== END 2022-04-08 17:59 | disposition home or self-care (01) ==
PROVIDERS: Physician Assistant Medical; Student in an Organized Health Care Education/Training Program; Emergency Provider Emergency Medicine; PCP Physician Assistant
DX: N18.9 Chronic kidney disease, unspecified (principal); R25.2 Cramp and spasm; R73.03 Prediabetes; Z86.711 Personal history of pulmonary embolism; Z79.01 Long term (current) use of anticoagulants
CPT/HCPCS: 36415; 80048; 80076; 82009; 82550; 82565; 84520; 85025; 85610; 86140; 96360; 99284

== ENCOUNTER → 2022-04-12 16:13 | Outpatient (BNVA) | payer OTHER, MEDICAID, SELFPAY | PROVIDERS: PCP Physician Assistant; Visit Provider Internal Medicine | DX: I26.99 Other pulmonary embolism without acute cor pulmonale (principal); Z79.01 Long term (current) use of anticoagulants; Z51.81 Encounter for therapeutic drug level monitoring | CPT/HCPCS: 85610; 99212 ==

== ENCOUNTER 2022-04-14 16:39 | Outpatient (REF) | payer OTHER, MEDICAID, SELFPAY ==
[2022-04-14 17:01] LABS: Hematocrit 36.2 % (37.0-47.0); Hemoglobin 11.9 g/dl (12.0-16.0); Mean Corpuscular HGB Conc 32.9 g/dl (31.0-35.0); Mean Corpuscular Hemoglobin 30.3 pg (27.0-33.0); Mean Corpuscular Volume 92.1 fL (80.0-98.0); Mean Platelet Volume 10.8 fL (9.4-12.3); Platelet Count 308 X10*3/uL (160-400); Red Blood Count 3.93 X10*6/uL (4.20-5.50); Red Cell Distribution Width 12.3 % (11.0-16.0); White Blood Count 10.3 X10*3/uL (4.8-10.8)
[2022-04-14 17:27] LABS: Anion Gap 15 (12-20); Blood Urea Nitrogen 61 mg/dL (9-16); Calcium 9.5 mg/dL (8.4-10.2); Carbon Dioxide 19 mmol/L (22-29); Chloride 110 mmol/L (96-108); Estimated Glomerular Filt Rate 16; Glucose Random 111 mg/dL (60-115); Potassium 4.6 mmol/L (3.3-5.1); Sodium 139 mmol/L (135-145)
[2022-04-16 13:56] LABS: Calcium (PTHI) 9.6 mg/dL (8.6-10.4); PTHI 126 pg/mL (16-77)
== END 2022-04-14 16:40 | disposition home or self-care (01) ==
LOC: HO.LAB 16:39
PROVIDERS: Absent Provider Internal Medicine Hypertension Specialist; PCP Physician Assistant; Visit Provider Internal Medicine
DX: I26.99 Other pulmonary embolism without acute cor pulmonale (principal); N18.5 Chronic kidney disease, stage 5; Z51.81 Encounter for therapeutic drug level monitoring; Z79.01 Long term (current) use of anticoagulants
CPT/HCPCS: 36415; 80048; 83970; 85027; 85610; 99211

== ENCOUNTER 2022-04-17 11:29 | Emergency (ER) | payer OTHER, MEDICAID, SELFPAY ==
[2022-04-17 12:19] VITALS: BP 124/84; PULSE 83; RESP 16; TEMP 36.4; O2SAT 98; BMI 24.4
[2022-04-17 12:39] LABS: Hematocrit 35.9 % (37.0-47.0); Hemoglobin 11.8 g/dl (12.0-16.0); Imm Gran Abs Auto 0.05 X10*3/uL (0.00-0.03); Imm Gran Pct Auto 0.5 % (0.0-0.4); Lymphocytes Absolute Auto 0.6 X10*3/uL (1.2-4.9); Lymphocytes Percent Auto 6.2 % (20-40); MANUAL DIFF FLAG SCAN; Mean Corpuscular HGB Conc 32.9 g/dl (31.0-35.0); Mean Corpuscular Hemoglobin 30.9 pg (27.0-33.0); Mean Platelet Volume 10.8 fL (9.4-12.3); Monocytes Absolute Auto 0.1 X10*3/uL (0.1-1.2); Monocytes Percent Auto 0.8 % (2-11); Neutrophils Absolute Auto 9.1 x10*3/uL (2.0-8.3); Neutrophils Percent Auto 92.5 % (45-73); Platelet Count 294 X10*3/uL (160-400); Red Blood Count 3.82 X10*6/uL (4.20-5.50); Red Cell Distribution Width 12.3 % (11.0-16.0); SCAN SMEAR FLAG 1; White Blood Count 9.9 X10*3/uL (4.8-10.8)
[2022-04-17 12:52] LABS: Anion Gap 13 (12-20); Blood Urea Nitrogen 57 mg/dL (9-16); Calcium 9.3 mg/dL (8.4-10.2); Carbon Dioxide 18 mmol/L (22-29); Chloride 110 mmol/L (96-108); Creatinine Clr Calc Pharmacy 16.2; Estimated Glomerular Filt Rate 16; Glucose Random 126 mg/dL (60-115); Potassium 4.5 mmol/L (3.3-5.1); Sodium 136 mmol/L (135-145)
[2022-04-17 13:09] LABS: SLIDE REVIEW VERIFIED
--- NOTE | 2022-04-17 19:11 | ED.NEUROSD ---
HPI - Neuro Symptoms/Deficit General Chief Complaint: Extremity Injury, Lower Stated Complaint: numbness in both legs Time Seen by Provider: 04/17/22 18:59 Source: patient Mode of arrival: ambulatory Limitations: no limitations History of Present Illness HPI Narrative: Patient has CKD stage 4 with neuropathy comes here for increased tingling and numbness feeling both lower extremities right more than the left patient used to be on gabapentin in the past but not taking anymore no increased back pain no bladder or bowel incontinence Related Data Home Medications Medication Instructions Recorded Confirmed prednisone 10 mg tablet 10 mg PO DAILY 06/01/20 04/14/22 fluocinonide 0.05 % topical appl topical 01/07/21 04/14/22 solution gabapentin 100 mg capsule 100 mg PO DAILY 01/07/21 04/14/22 melatonin 1 mg/mL oral liquid 2 mg PO BEDTIME 12/16/21 04/14/22 (Children's Sleep (melatonin)) magnesium oxide 250 mg PO BID 04/14/22 04/14/22 Previous Rx's Medication Instructions Recorded loratadine 10 mg tablet 10 mg PO DAILY 14 days #14 tabs 06/08/21 fluticasone propionate 50 1 spray intranasal DAILY 14 days 07/04/21 mcg/actuation nasal #150 mL spray,suspension (Flonase Allergy Relief) warfarin 5 mg tablet 5 mg PO DAILY #90 tabs 02/10/22 cholecalciferol (vitamin D3) 50 100 mcg PO DAILY 30 days #60 caps 03/22/22 mcg (2,000 unit) capsule levothyroxine 125 mcg tablet 125 mcg PO DAILY 30 days #30 tabs 03/22/22 clobetasol 0.05 % scalp solution 1 appl topical DAILY #50 mL 04/06/22 lorazepam 0.5 mg tablet (Ativan) 0.5 mg PO BEDTIME PRN muscle 04/08/22 spasm #5 tabs gabapentin 100 mg capsule 100 mg PO DAILY #30 caps 04/17/22 Allergies Allergy/AdvReac Type Severity Reaction Status Date / Time cephalexin [From Keflex] Allergy Unknown RED+ITCHY,R Verified 04/14/22 16:08 BE Cephalosporins Allergy Unknown RED+ITCHY Verified 04/14/22 16:08 [CEPHALOSPORINS] Sulfa (Sulfonamide Allergy Unknown RED+ITCHY Verified 04/14/22 16:08 Antibiotics) [SULFA(SULFONAMIDE ANTIBIOTICS)] Review of Systems Review of Systems: Yes all other systems are reviewed and are negative [facility] Past Medical History Medical History History of pulmonary embolism Hypertriglyceridemia Hypothyroidism Prediabetes SLE glomerulonephritis syndrome Vitamin D deficiency Surgical History Hx of tubal ligation Family History Family History Father Family history unknown Mother Hypertension Diabetes Deep vein thrombosis CVA (cerebral vascular accident) Brother CVA (cerebral vascular accident), Onset Age: 48 Brother CVA (cerebral vascular accident), Onset Age: 38 Social History Social History Housing: House Alcohol intake: never Patient Tobacco Use Status: Former Tobacco user Quit Date: 03/03/22 e-Cigarette/Vaping Use: Never Used Advance Directives: No service: No Current occupational status: employed Current occupation: [employer] Cognitive needs: No Hearing needs: No Vision needs: No Physical Exam Vital Signs: Vital Signs: Last Vital Signs Temp 97 F 04/17/22 19:13 Pulse 56 04/17/22 19:13 Resp 17 04/17/22 19:13 BP 129/90 H 04/17/22 19:13 Pulse Ox 98 04/17/22 19:13 O2 Del Method 04/17/22 19:13 BMI result Body Mass Index 24.4 Appearance: Alert. Oriented X3. No acute distress. Eyes: PERRLA, No Nystagmus ENT: Pharynx normal. Oral Mucosa moist Neck: Normal inspection. Neck supple. CVS: Normal heart rate and rhythm. Pulses normal. Respiratory: No respiratory distress. Equal air entry bilateral, no wheezing/rales/rhonchi Abdomen: Soft and nontender. Bowel sounds are present, no mass palpable, no CVA tenderness Skin: Skin warm and dry. Normal skin color. Normal skin turgor. Extremities: No lower extremity edema. No calf tenderness Neuro: Oriented X 3. No motor deficit. No sensory deficit.No cerebellar signs , cranial nerves II-XII intact MDM - Neuro Symptoms/Deficit MDM Narrative Medical decision making narrative: Patient with peripheral neuropathy start on gabapentin advised to follow a neurologist Lab Data Attestation: I reviewed the patient's lab results. Result diagrams: 04/17/22 12:28 04/17/22 12: Labs: Lab Results 04/17/22 04/17/22 Range/Units 12: 12:28 WBC 9.9 (4.8-10.8) X10*3/uL RBC 3.82 L (4.20-5.50) X10*6/uL Hgb 11.8 L (12.0-16.0) g/dl Hct 35.9 L (37.0-47.0) % MCV 94.0 (80.0-98.0) fL MCH 30.9 (27.0-33.0) pg MCHC 32.9 (31.0-35.0) g/dl RDW 12.3 (11.0-16.0) % Plt Count 294 (160-400) X10*3/uL MPV 10.8 (9.4-12.3) fL Immature Gran % (Auto) 0.5 H (0.0-0.4) % Neut % (Auto) 92.5 H (45-73) % Lymph % (Auto) 6.2 L (20-40) % [place] % (Auto) 0.8 L (2-11) % Eos % (Auto) 0.0 (0-4) % Baso % (Auto) 0.0 (0-2) % Lymph # (Auto) 0.6 L (1.2-4.9) X10*3/uL [place] # (Auto) 0.1 (0.1-1.2) X10*3/uL Eos # (Auto) 0.0 (0.0-0.4) X10*3/uL Baso # (Auto) 0.0 (0.0-0.2) X10*3/uL Abs Immat Gran (auto) 0.05 H (0.00-0.03) X10*3/uL Absolute Neuts (auto) 9.1 H (2.0-8.3) x10*3/uL Absolute Nucleated RBC 0.000 (0.0-0.012) X10*3/uL Nucleated RBC % (auto) 0.0 (0.0-0.2) /100WBC Smear Tech's Comments VERIFIED Sodium 136 (135-145) mmol/L Potassium 4.5 (3.3-5.1) mmol/L Chloride 110 H (96-108) mmol/L Carbon Dioxide 18 L (22-29) mmol/L Anion Gap 13 (12-20) BUN 57 H (9-16) mg/dL Creatinine 3.06 H (0.5-1.4) mg/dL Estim Creat Clear Calc 16.2 Estimated GFR 16 Random Glucose 126 H (60-115) mg/dL Calcium 9.3 (8.4-10.2) mg/dL Discharge Plan Discharge Clinical Impression: Peripheral neuropathy Patient Disposition: Home, Self-Care Instructions: Peripheral Neuropathy (ED) Additional Instructions: Take gabapentin as prescribed Follow-up with urologist and 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 Prescriptions: New gabapentin 100 mg capsule 100 mg PO DAILY Qty: 30 0RF No Action fluticasone propionate [Flonase Allergy Relief] 50 mcg/actuation spray,suspension 1 spray intranasal DAILY 14 Days Qty: 150 3RF Rx Instructions: administer into each nostril warfarin 5 mg tablet 5 mg PO DAILY Qty: 90 3RF Protocol: Dose Management Condition: Sunday (Week One) Dose/Route: 2.5 mg Instruction: 0.5 x 5 mg tablets Condition: Sunday Dose/Route: 5 mg Instruction: 1 x 5 mg tablet Condition: Sunday Dose/Route: 2.5 mg Instruction: 0.5 x 5 mg tablets Condition: Sunday Dose/Route: 5 mg Instruction: 1 x 5 mg tablet Condition: Dose/Route: 0 mg Instruction: 0 tablets Condition: Sunday Dose/Route: 2.5 mg Instruction: 0.5 x 5 mg tablets Condition: Sunday Dose/Route: 2.5 mg Instruction: 0.5 x 5 mg tablets Condition: Sunday (Week Two) Dose/Route: 2.5 mg Instruction: 0.5 x 5 mg tablets Condition: Sunday Dose/Route: 2.5 mg Instruction: 0.5 x 5 mg tablets Condition: Sunday Dose/Route: 5 mg Instruction: 1 x 5 mg tablet Condition: Sunday Dose/Route: 2.5 mg Instruction: 0.5 x 5 mg tablets Condition: Dose/Route: 2.5 mg Instruction: 0.5 x 5 mg tablets Condition: Sunday Dose/Route: 5 mg Instruction: 1 x 5 mg tablet Condition: Sunday Dose/Route: 2.5 mg Instruction: 0.5 x 5 mg tablets Protocol Text: Adjustment Start Date: Sunday04/14/22 INR Value: 1.7 INR Date: 04/14/22 Recheck Date: 04/18/22 lorazepam [Ativan] 0.5 mg tablet 0.5 mg PO BEDTIME PRN (Reason: muscle spasm) Qty: 5 0RF loratadine 10 mg tablet 10 mg PO DAILY 14 Days Qty: 14 0RF clobetasol 0.05 % solution 1 appl topical DAILY Qty: 50 2RF gabapentin 100 mg capsule 100 mg PO DAILY fluocinonide 0.05 % solution topical prednisone 10 mg tablet 10 mg PO DAILY levothyroxine 125 mcg tablet 125 mcg PO DAILY 30 Days Qty: 30 6RF cholecalciferol (vitamin D3) 50 mcg (2,000 unit) capsule 100 mcg PO DAILY 30 Days Qty: 60 11RF melatonin [Children's Sleep (melatonin)] 1 mg/mL liquid 2 mg PO BEDTIME magnesium oxide 250 mg magnesium tablet 250 mg PO BID
[2022-04-17 19:13] VITALS: BP 129/90; PULSE 56; RESP 17; TEMP 36.1; O2SAT 98
[2022-04-17] MEDS: Gabapentin 100 MG CAPSULE PO (19:43)
--- NOTE | 2022-04-17 19:44 | PC.NURSE ---
Assumed care of pt. at 1900. Pt. is alert and oriented, requesting some food. Will provide a turkey sandwich. Pt. has some numbness in bilateral legs. Medicated with gabapentin per OCT. Pt. resting in bed at this time.
== END 2022-04-17 20:18 | disposition home or self-care (01) ==
PROVIDERS: Emergency Medicine; Emergency Provider Internal Medicine; PCP Physician Assistant
DX: G62.9 Polyneuropathy, unspecified (principal); R20.0 Anesthesia of skin; R73.03 Prediabetes; Z86.711 Personal history of pulmonary embolism; Z87.891 Personal history of nicotine dependence; Z98.51 Tubal ligation status; Z79.01 Long term (current) use of anticoagulants; Z79.899 Other long term (current) drug therapy
CPT/HCPCS: 36415; 80048; 85025; 99283

== ENCOUNTER → 2022-04-19 15:20 | Outpatient (BNVA) | payer OTHER, MEDICAID, SELFPAY | PROVIDERS: PCP Physician Assistant; Visit Provider Internal Medicine | DX: I26.99 Other pulmonary embolism without acute cor pulmonale (principal); Z51.81 Encounter for therapeutic drug level monitoring; Z79.01 Long term (current) use of anticoagulants | CPT/HCPCS: 85610; 99211 ==

== ENCOUNTER 2022-04-25 07:54 | Day surgery (SDC) | payer OTHER, MEDICAID, SELFPAY ==
--- NOTE | ~2022-04-25 | CT_ITS ---
PROCEDURE: CT-GUIDED BIOPSY, KIDNEY CLINICAL INFORMATION: Chronic kidney disease. Glomerulonephritis. COMPARISON: None TECHNIQUE: Following explaining CT fluoroscopy-guided right renal lower pole biopsy procedure, benefits and risk, a written consent was obtained. Patient was placed prone on CT fluoroscopy table and preliminary imaging was obtained through the kidneys. An optimal slice was selected and marked on the skin. The marked area was cleaned and draped in the usual sterile manner. 1% lidocaine was injected at puncture site. Through a small skin incision a 10 cm 18-gauge guide needle was advanced and placed along the lower pole right kidney. Coaxially an 18-gauge biopsy gun was advanced and a 4 pass core biopsy was obtained and sent to pathology in saline solution. Postprocedure guide needle was withdrawn and complete hemostasis achieved at puncture site. Sterile dressing applied postprocedure. Repeat CT imaging was obtained postprocedure. Conscious sedation was provided by IR nursing and radiologist and patient monitored for 50 minutes of sedation time. This CT examination was performed using dose optimization techniques as appropriate, variously including the following: *Automated exposure control *Adjustment of mA and/or kV according to patient size (this includes techniques or standardized protocols for targeted exams where dose is matched to indication/reason for exam; i.e. extremities or head) *Use of iterative reconstruction technique DLP: 210 mGy-cm FINDINGS: On prone CT imaging there are no radiopaque renal calculi seen. There is punctate hyperdensity in the cortex of left kidney nonspecific. There is no caliectasis or hydronephrosis. Visualized liver, spleen, pancreas appear unremarkable. CT fluoroscopy-guided 4 pass core biopsy performed of lower pole right kidney without immediate complications. Postprocedure CT revealed no hemorrhage. CT/CT biopsy renal RT IMPRESSION: Successful CT fluoroscopy-guided right renal biopsy performed without immediate complications.
[2022-04-25 08:11] VITALS: BMI 26.4
[2022-04-25 08:57] LABS: Basophils Percent Auto 0.2 % (0-2); Eosinophils Absolute Auto 0.1 X10*3/uL (0.0-0.4); Eosinophils Percent Auto 1.5 % (0-4); Hematocrit 34.1 % (37.0-47.0); Hemoglobin 11.1 g/dl (12.0-16.0); Imm Gran Abs Auto 0.05 X10*3/uL (0.00-0.03); Imm Gran Pct Auto 0.6 % (0.0-0.4); Lymphocytes Absolute Auto 3.4 X10*3/uL (1.2-4.9); Lymphocytes Percent Auto 37.7 % (20-40); MANUAL DIFF FLAG NO; Mean Corpuscular HGB Conc 32.6 g/dl (31.0-35.0); Mean Corpuscular Hemoglobin 30.7 pg (27.0-33.0); Mean Corpuscular Volume 94.2 fL (80.0-98.0); Mean Platelet Volume 10.8 fL (9.4-12.3); Monocytes Absolute Auto 0.8 X10*3/uL (0.1-1.2); Monocytes Percent Auto 8.3 % (2-11); Neutrophils Absolute Auto 4.7 x10*3/uL (2.0-8.3); Neutrophils Percent Auto 51.7 % (45-73); Platelet Count 291 X10*3/uL (160-400); Red Blood Count 3.62 X10*6/uL (4.20-5.50); Red Cell Distribution Width 12.1 % (11.0-16.0)
[2022-04-25 09:03] LABS: Prothrombin Time 11.7 SEC (10.0-13.1)
[2022-04-25 09:06] LABS: Partial Thromboplastin Time 41.8 SEC (26.0-36.4)
[2022-04-25 09:12] LABS: Anion Gap 14 (12-20); Blood Urea Nitrogen 61 mg/dL (9-16); Carbon Dioxide 16 mmol/L (22-29); Chloride 114 mmol/L (96-108); Creatinine Clr Calc Pharmacy 15.6; Estimated Glomerular Filt Rate 15; Potassium 4.2 mmol/L (3.3-5.1); Sodium 140 mmol/L (135-145)
[2022-04-25 10:45] VITALS: BP 125/66; PULSE 51; RESP 16; TEMP 36.1; O2SAT 99
[2022-04-25 11:00] VITALS: BP 119/61; PULSE 72; RESP 20; O2SAT 97
[2022-04-25 11:15] VITALS: BP 121/64; PULSE 61; RESP 16; O2SAT 98
[2022-04-25 11:30] VITALS: BP 125/66; PULSE 54; RESP 17; O2SAT 99
[2022-04-25 11:55] VITALS: BP 108/56; PULSE 71; RESP 17; O2SAT 99
[2022-04-25 12:20] VITALS: BP 123/67; PULSE 62; RESP 18; TEMP 37.2; O2SAT 98
== END 2022-04-25 12:30 | disposition home or self-care (01) ==
PROVIDERS: Radiology Diagnostic Radiology; PCP Physician Assistant; Visit Provider Internal Medicine Hypertension Specialist
DX: N18.5 Chronic kidney disease, stage 5 (principal); N05.9 Unspecified nephritic syndrome with unspecified morphologic changes; M32.14 Glomerular disease in systemic lupus erythematosus; E78.1 Pure hyperglyceridemia; E06.3 Autoimmune thyroiditis; E03.9 Hypothyroidism, unspecified; E55.9 Vitamin D deficiency, unspecified; R73.03 Prediabetes; Z86.711 Personal history of pulmonary embolism; Z79.01 Long term (current) use of anticoagulants; Z79.51 Long term (current) use of inhaled steroids; Z79.899 Other long term (current) drug therapy; Z88.1 Allergy status to other antibiotic agents; Z88.2 Allergy status to sulfonamides; F17.210 Nicotine dependence, cigarettes, uncomplicated
CPT/HCPCS: 36415; 50200; 77012; 80051; 82565; 84520; 85025; 85610; 85730; 88300; 88305; 88313; 88346; 88348; 88350; 99152; J2250; J3010

== ENCOUNTER → 2022-04-28 15:38 | Outpatient (BNVA) | payer OTHER, MEDICAID, SELFPAY | PROVIDERS: PCP Physician Assistant; Visit Provider Internal Medicine | DX: I26.99 Other pulmonary embolism without acute cor pulmonale (principal); Z51.81 Encounter for therapeutic drug level monitoring; Z79.01 Long term (current) use of anticoagulants | CPT/HCPCS: 85610; 99211 ==

== ENCOUNTER → 2022-05-04 15:17 | Outpatient (BNVA) | payer OTHER, MEDICAID, SELFPAY | PROVIDERS: PCP Physician Assistant; Visit Provider Internal Medicine | DX: I26.99 Other pulmonary embolism without acute cor pulmonale (principal); Z79.01 Long term (current) use of anticoagulants; Z51.81 Encounter for therapeutic drug level monitoring | CPT/HCPCS: 85610; 99211 ==

== ENCOUNTER 2022-05-16 09:08 | Outpatient (REF) | payer OTHER, MEDICAID, SELFPAY ==
[2022-05-16 10:30] LABS: Anion Gap 13 (12-20); Blood Urea Nitrogen 61 mg/dL (9-16); Calcium 9.6 mg/dL (8.4-10.2); Carbon Dioxide 21 mmol/L (22-29); Chloride 113 mmol/L (96-108); Estimated Glomerular Filt Rate 15; Potassium 3.9 mmol/L (3.3-5.1); Sodium 143 mmol/L (135-145)
[2022-05-16 10:55] LABS: Free T4 (Free Thyroxine) 1.44 ng/dL (0.71-1.85); Thyroid Stimulating Hormone 0.01 uIU/mL (0.32-4.0); Vitamin D 25-OH Total 35.4 ng/mL (>30)
== END 2022-05-16 09:09 | disposition home or self-care (01) ==
LOC: HO.LAB 09:08
PROVIDERS: Absent Provider Internal Medicine Hypertension Specialist; PCP Physician Assistant; Visit Provider Internal Medicine
DX: E03.8 Other specified hypothyroidism (principal); E06.3 Autoimmune thyroiditis; E55.9 Vitamin D deficiency, unspecified; N18.4 Chronic kidney disease, stage 4 (severe)
CPT/HCPCS: 36415; 80051; 82306; 82310; 82565; 84439; 84443; 84520

== ENCOUNTER 2022-06-12 13:52 | Outpatient (REF) | payer OTHER, MEDICAID, SELFPAY ==
[2022-06-12 14:57] LABS: Anion Gap 16 (12-20); Blood Urea Nitrogen 60 mg/dL (9-16); Calcium 9.3 mg/dL (8.4-10.2); Carbon Dioxide 19 mmol/L (22-29); Chloride 111 mmol/L (96-108); Estimated Glomerular Filt Rate 17; Glucose Random 86 mg/dL (60-115); Magnesium 2.6 mg/dL (1.6-2.6); Phosphorus 4.3 mg/dL (2.7-4.5); Potassium 3.9 mmol/L (3.3-5.1); Sodium 142 mmol/L (135-145)
[2022-06-12 15:22] LABS: T4 Thyroxine 9.8 ug/dL (4.5-12.0)
[2022-06-12 15:31] LABS: Thyroid Stimulating Hormone 0.02 uIU/mL (0.32-4.0)
[2022-06-16 12:51] LABS: Anti Nuclear Antibody Pattern Nuclear, Speckled; Anti Nuclear Antibody Screen POSITIVE (NEGATIVE); Anti Nuclear Antibody Titer 1:40 titer
== END 2022-06-12 13:53 | disposition home or self-care (01) ==
LOC: HO.LAB 13:52
PROVIDERS: PCP Physician Assistant; Visit Provider Psychiatry & Neurology Neurology
DX: G62.9 Polyneuropathy, unspecified (principal); R25.2 Cramp and spasm
CPT/HCPCS: 36415; 80048; 83735; 84100; 84436; 84443; 86038; 86039

== ENCOUNTER → 2022-06-16 11:00 | Outpatient (BNVA) | payer OTHER, MEDICAID, SELFPAY | PROVIDERS: PCP Physician Assistant; Visit Provider Internal Medicine | DX: I26.99 Other pulmonary embolism without acute cor pulmonale (principal); Z51.81 Encounter for therapeutic drug level monitoring; Z79.01 Long term (current) use of anticoagulants | CPT/HCPCS: 85610; 99211 ==

== ENCOUNTER 2022-06-23 09:16 | Outpatient (REF) | payer OTHER, MEDICAID, SELFPAY ==
[2022-06-23 10:47] LABS: Alanine Aminotransferase 22 U/L (0-31); Alkaline Phosphatase 63 U/L (39-117); Anion Gap 13 (12-20); Aspartate Amino Transferase 18 U/L (5-31); Bilirubin Total 0.6 mg/dL (0.0-1.0); Blood Urea Nitrogen 48 mg/dL (9-16); Calcium 9.4 mg/dL (8.4-10.2); Carbon Dioxide 22 mmol/L (22-29); Chloride 113 mmol/L (96-108); Cholesterol 265 mg/dL; Estimated Glomerular Filt Rate 17; Free T4 (Free Thyroxine) 1.14 ng/dL (0.71-1.85); Glucose Random 79 mg/dL (60-115); HDL Cholesterol 38 mg/dL; LDL Cholesterol Calculated 178 mg/dl; Potassium 3.6 mmol/L (3.3-5.1); Sodium 144 mmol/L (135-145); Thyroid Stimulating Hormone 0.03 uIU/mL (0.32-4.0); Total Protein 5.9 g/dL (6.5-8.0); Triglycerides 247 mg/dL
[2022-06-23 11:47] LABS: Albumin Level 4.3 g/dL (3.5-5.0); Vitamin D 25-OH Total 40.6 ng/mL (>30)
[2022-06-24 08:57] LABS: LDL Cholesterol Direct 161 mg/dL (<100)
[2022-06-28 05:26] LABS: Anti DNA DS Antibody 1 IU/mL
[2022-06-28 12:02] LABS: Anti Nuclear Antibody Pattern Nuclear, Speckled; Anti Nuclear Antibody Screen POSITIVE (NEGATIVE)
== END 2022-06-23 09:17 | disposition home or self-care (01) ==
LOC: HO.LAB 09:16
PROVIDERS: Internal Medicine; PCP Physician Assistant; Visit Provider Internal Medicine Hypertension Specialist
DX: E03.8 Other specified hypothyroidism (principal); E06.3 Autoimmune thyroiditis; E55.9 Vitamin D deficiency, unspecified; E78.1 Pure hyperglyceridemia; M32.14 Glomerular disease in systemic lupus erythematosus
CPT/HCPCS: 36415; 80053; 80061; 82306; 83721; 84439; 84443; 86038; 86039; 86225

== ENCOUNTER → 2022-07-06 16:00 | Outpatient (BNVA) | payer OTHER, MEDICAID, SELFPAY | PROVIDERS: PCP Physician Assistant; Visit Provider Internal Medicine | DX: I26.99 Other pulmonary embolism without acute cor pulmonale (principal); Z51.81 Encounter for therapeutic drug level monitoring; Z79.01 Long term (current) use of anticoagulants | CPT/HCPCS: 85610; 99211 ==

== ENCOUNTER → 2022-07-27 15:10 | Outpatient (BNVA) | payer OTHER, MEDICAID, SELFPAY | PROVIDERS: PCP Physician Assistant; Visit Provider Internal Medicine | DX: I26.99 Other pulmonary embolism without acute cor pulmonale (principal); Z79.01 Long term (current) use of anticoagulants; Z51.81 Encounter for therapeutic drug level monitoring | CPT/HCPCS: 85610; 99211 ==

== ENCOUNTER → 2022-08-17 15:22 | Outpatient (BNVA) | payer OTHER, MEDICAID, SELFPAY | PROVIDERS: PCP Physician Assistant; Visit Provider Internal Medicine | DX: I26.99 Other pulmonary embolism without acute cor pulmonale (principal); Z51.81 Encounter for therapeutic drug level monitoring; Z79.01 Long term (current) use of anticoagulants | CPT/HCPCS: 85610; 99211 ==

== ENCOUNTER 2022-08-18 05:28 | Emergency (ER) | payer OTHER, MEDICAID, SELFPAY ==
--- NOTE | 2022-08-18 | ECG_ITS ---
Test Reason : CHEST PAIN Blood Pressure : / mmHG Vent. Rate : 099 BPM Atrial Rate : 099 BPM P-R Int : 158 ms QRS Dur : 078 ms QT Int : 342 ms P-R-T Axes : 053 010 044 degrees QTc Int : 438 ms Normal sinus rhythm Nonspecific T wave abnormality Abnormal ECG Referred By: Generic ED Physician Electronically Signed By:Hudson Larsen
--- NOTE | ~2022-08-18 | XR_ITS ---
EXAMINATION: XR CHEST CLINICAL INFORMATION: Chest pain COMPARISON: 03/20/2008 TECHNIQUE: Frontal view of the chest was obtained. FINDINGS: Cardiac leads overlie the chest. The lungs are well expanded. There is no focal consolidation, edema, or effusion. No pneumothorax. The cardiomediastinal silhouette is within normal limits. No acute osseous abnormality. XR/XR chest 1V IMPRESSION: No acute pulmonary disease.
[2022-08-18 05:38] VITALS: BP 125/77; PULSE 112; RESP 20; TEMP 36.6; O2SAT 100; BMI 29.2
[2022-08-18 06:02] LABS: Basophils Percent Auto 0.4 % (0-2); Eosinophils Absolute Auto 0.2 X10*3/uL (0.0-0.4); Eosinophils Percent Auto 3.3 % (0-4); Hematocrit 31.5 % (37.0-47.0); Hemoglobin 10.1 g/dl (12.0-16.0); Imm Gran Abs Auto 0.04 X10*3/uL (0.00-0.03); Imm Gran Pct Auto 0.7 % (0.0-0.4); Lymphocytes Absolute Auto 1.3 X10*3/uL (1.2-4.9); Lymphocytes Percent Auto 21.9 % (20-40); MANUAL DIFF FLAG SCAN; Mean Corpuscular HGB Conc 32.1 g/dl (31.0-35.0); Mean Corpuscular Hemoglobin 29.4 pg (27.0-33.0); Mean Corpuscular Volume 91.6 fL (80.0-98.0); Mean Platelet Volume 11.3 fL (9.4-12.3); Monocytes Absolute Auto 0.1 X10*3/uL (0.1-1.2); Monocytes Percent Auto 2.1 % (2-11); Neutrophils Absolute Auto 4.1 x10*3/uL (2.0-8.3); Neutrophils Percent Auto 71.6 % (45-73); Platelet Count 124 X10*3/uL (160-400); Red Blood Count 3.44 X10*6/uL (4.20-5.50); Red Cell Distribution Width 12.2 % (11.0-16.0); SCAN SMEAR FLAG 1; White Blood Count 5.7 X10*3/uL (4.8-10.8)
[2022-08-18 06:13] LABS: COVID-19 Test Negative (Negative); IDNOW Serial# 16C4AD1C
[2022-08-18 06:15] LABS: IDNOW Serial# 9DB6401D; Influenza A Negative (Negative); Influenza B2 Negative (Negative)
--- NOTE | 2022-08-18 06:17 | ED.GENADULT ---
HPI - General Adult General Chief complaint: General Medical Stated complaint: Fever/Cough Time Seen by Provider: 08/18/22 05:58 History of Present Illness HPI narrative: Patient is a 57-year-old female presents today with having coughing congestion low-grade fever chest pain with cough. History of prediabetes history of lupus. Patient has chest pain with coughing. Chest pain when she she moves. No nausea no vomiting. No diaphoresis. Patient is from home. Patient is vaccinated for COVID. Vaccinated for flu. Positive generalized malaise diffuse body aches. Patient also has a history of pulmonary emboli. Is currently on warfarin. Compliant with medication. Related Data Home Medications Medication Instructions Recorded Confirmed fluocinonide 0.05 % topical appl topical 01/07/21 08/17/22 solution magnesium oxide 250 mg PO BID 04/14/22 08/17/22 Kidney Korrect PO 04/28/22 08/17/22 prednisone 10 mg tablet 10 mg PO DAILY 06/16/22 08/17/22 RETUXIN IV 08/17/22 08/17/22 gabapentin 300 mg capsule mg PO 08/17/22 08/17/22 Previous Rx's Medication Instructions Recorded loratadine 10 mg tablet 10 mg PO DAILY 14 days #14 tabs 06/08/21 warfarin 5 mg tablet 5 mg PO DAILY #90 tabs 02/10/22 cholecalciferol (vitamin D3) 50 100 mcg PO DAILY 30 days #60 caps 03/22/22 mcg (2,000 unit) capsule clobetasol 0.05 % scalp solution 1 appl topical DAILY #50 mL 04/06/22 gabapentin 100 mg capsule 200 mg PO DAILY 30 days #60 caps 04/26/22 levothyroxine 100 mcg tablet 100 mcg PO DAILY 30 days #30 tabs 06/26/22 doxycycline hyclate 100 mg capsule 100 mg PO BID cough 7 days #14 caps 08/18/22 Allergies Allergy/AdvReac Type Severity Reaction Status Date / Time cephalexin [From Keflex] Allergy Unknown RED+ITCHY,R Verified 08/18/22 05:41 BE Cephalosporins Allergy Unknown RED+ITCHY Verified 08/18/22 05:41 [CEPHALOSPORINS] Sulfa (Sulfonamide Allergy Unknown RED+ITCHY Verified 08/18/22 05:41 Antibiotics) [SULFA(SULFONAMIDE ANTIBIOTICS)] Review of Systems Review of Systems: Positive coughing upper respiratory symptoms positive chest pain with coughing. Positive fever Yes all other systems are reviewed and are negative [facility] Past Medical History Attestation statement: The following information was validated with the patient. Medical History History of pulmonary embolism Hypertriglyceridemia Hypothyroidism Prediabetes SLE glomerulonephritis syndrome Vitamin D deficiency Surgical History Hx of tubal ligation Family History Family History Father Family history unknown Mother Hypertension Diabetes Deep vein thrombosis CVA (cerebral vascular accident) Brother CVA (cerebral vascular accident), Onset Age: 48 Brother CVA (cerebral vascular accident), Onset Age: 38 Social History Social History Housing: House Alcohol intake: former Patient Tobacco Use Status: Former Tobacco user Quit Date: 03/03/22 Smoked in Last 30 Days: No e-Cigarette/Vaping Use: Never Used Use of substances other than those prescribed or required for medical reasons: No Advance Directives: No Advance Directives Information Provided: Yes Patient : No service: No Current occupational status: employed Current occupation: [employer] Cognitive needs: No Hearing needs: No Vision needs: No Physical Exam ED Vital Signs: Vital Signs - 24 hr 08/18/22 05:38 Temperature 98 F Pulse Rate 112 H Respiratory Rate 20 Blood Pressure 125/77 Pulse Oximetry 100 Oxygen Delivery Method Room Air BMI result Body Mass Index 29.2 Appearance: Alert. Oriented X3. No acute distress. Eyes: Pupils equal, round and reactive to light. ENT: Pharynx normal. Neck: Normal inspection. Neck supple. No lymph nodes noted. No crepitus CVS: Normal heart rate and rhythm. Pulses normal. Normal S1 and S2 Respiratory: No respiratory distress. Breath sounds normal. No Wheezing. No rales Abdomen: Soft and nontender. No rigidity. No distention. good BS x4 Skin: Skin warm and dry. Normal skin color. Normal skin turgor. Extremities: No lower extremity edema. Neurovascular intact to all extremities. No Lacerations. No Rash Neuro: Oriented X 3. No motor deficit. No sensory deficit. Moving all extermities. No slurred speech Medications Administered Generic Name Dose Route Start Last Admin Trade Name Freq PRN Reason Stop Dose Admin Sodium Chloride 1,000 mls @ 999 mls/hr 08/18/22 06:15 08/18/22 06:29 Ns IV 08/18/22 07:15 999 mls/hr .[id number] CARLOS Administration Discontinued Medications Generic Name Dose Route Start Last Admin Trade Name Freq PRN Reason Stop Dose Admin Guaifenesin/Codeine Phosphate 10 ml 08/18/22 06:12 08/18/22 06:29 Guaifen/Codeine Sf 200/20/10ml 10 Ml Liquid PO 08/18/22 06:13 10 ml ONCE ONE Administration Medical Decision Making Differential Diagnosis Pulmonary emboli, pneumonia, COVID, flu patient has coughing congestion upper respiratory symptoms chest pain with cough. Also a history of pulmonary emboli has a history of lupus. Will check an INR. As patient is on Coumadin. If Coumadin is therapeutic patient unlikely to have pulmonary emboli. Positive fever coughing upper respiratory symptoms. Will check for pneumonia. Patient's flu and COVID are negative. Will monitor carefully. A L of fluid was ordered. Labs ordered. After IV fluids. Patient's symptomatic Arminda improved. Her INR was 2.9. Making PE highly unlikely. I personally reviewed patient's chest x-ray. It was grossly negative for any acute evidence of pneumonia. No rib fracture. Patient has low-grade fever along with coughing upper respiratory symptoms pain only on coughing negative chest x-ray will go ahead and treat patient with antibiotics anyway. Will start patient on doxycycline. Given allergies to cephalosporins and to sulfa. Patient's creatinine is 2.9 this is baseline. Patient's white count is 5.7. No evidence for neutropenia. Admission/Observation Consideration of admission/observation: Escalation of care including admission/observation considered Considered admission but patient's O2 sat is 100% well appearing no distress. Lab Data MDM Lab Attestation statement: I reviewed the patient's lab results. 08/18/22 05:55 08/18/22 05:55 Labs: Lab Results 08/18/22 08/18/22 08/18/22 Range/Units 05:50 05:50 05:55 WBC 5.7 (4.8-10.8) X10*3/uL RBC 3.44 L (4.20-5.50) X10*6/uL Hgb 10.1 L (12.0-16.0) g/dl Hct 31.5 L (37.0-47.0) % MCV 91.6 (80.0-98.0) fL MCH 29.4 (27.0-33.0) pg MCHC 32.1 (31.0-35.0) g/dl RDW 12.2 (11.0-16.0) % Plt Count 124 L D (160-400) X10*3/uL MPV 11.3 (9.4-12.3) fL Immature Gran % (Auto) 0.7 H (0.0-0.4) % Neut % (Auto) 71.6 (45-73) % Lymph % (Auto) 21.9 (20-40) % [place] % (Auto) 2.1 (2-11) % Eos % (Auto) 3.3 (0-4) % Baso % (Auto) 0.4 (0-2) % Lymph # (Auto) 1.3 (1.2-4.9) X10*3/uL [place] # (Auto) 0.1 (0.1-1.2) X10*3/uL Eos # (Auto) 0.2 (0.0-0.4) X10*3/uL Baso # (Auto) 0.0 (0.0-0.2) X10*3/uL Abs Immat Gran (auto) 0.04 H (0.00-0.03) X10*3/uL Absolute Neuts (auto) 4.1 (2.0-8.3) x10*3/uL Absolute Nucleated RBC 0.000 (0.0-0.012) X10*3/uL Nucleated RBC % (auto) 0.0 (0.0-0.2) /100WBC Smear Tech's Comments VERIFIED PT (10.0-13.1) SEC INR (0.9-1.1) Sodium (135-145) mmol/L Potassium (3.3-5.1) mmol/L Chloride (96-108) mmol/L Carbon Dioxide (22-29) mmol/L Anion Gap (12-20) BUN (9-16) mg/dL Creatinine (0.5-1.4) mg/dL Estim Creat Clear Calc Estimated GFR Random Glucose (60-115) mg/dL Calcium (8.4-10.2) mg/dL COVID-19 (ALEX) Negative (Negative) COVID-19 Clin Com See Note Influenza Type A (KAYLA) Negative (Negative) Influenza Type B (KAYLA) Negative (Negative) Influenza A & B Note See Note 08/18/22 08/18/22 Range/Units 05:55 06:34 WBC (4.8-10.8) X10*3/uL RBC (4.20-5.50) X10*6/uL Hgb (12.0-16.0) g/dl Hct (37.0-47.0) % MCV (80.0-98.0) fL MCH (27.0-33.0) pg MCHC (31.0-35.0) g/dl RDW (11.0-16.0) % Plt Count (160-400) X10*3/uL MPV (9.4-12.3) fL Immature Gran % (Auto) (0.0-0.4) % Neut % (Auto) (45-73) % Lymph % (Auto) (20-40) % [place] % (Auto) (2-11) % Eos % (Auto) (0-4) % Baso % (Auto) (0-2) % Lymph # (Auto) (1.2-4.9) X10*3/uL [place] # (Auto) (0.1-1.2) X10*3/uL Eos # (Auto) (0.0-0.4) X10*3/uL Baso # (Auto) (0.0-0.2) X10*3/uL Abs Immat Gran (auto) (0.00-0.03) X10*3/uL Absolute Neuts (auto) (2.0-8.3) x10*3/uL Absolute Nucleated RBC (0.0-0.012) X10*3/uL Nucleated RBC % (auto) (0.0-0.2) /100WBC Smear Tech's Comments PT 35.3 H (10.0-13.1) SEC INR 2.9 H (0.9-1.1) Sodium 135 (135-145) mmol/L Potassium 4.0 (3.3-5.1) mmol/L Chloride 114 H (96-108) mmol/L Carbon Dioxide 13 L (22-29) mmol/L Anion Gap 12 (12-20) BUN 49 H (9-16) mg/dL Creatinine 2.71 H (0.5-1.4) mg/dL Estim Creat Clear Calc 19.6 Estimated GFR 18 Random Glucose 90 (60-115) mg/dL Calcium 8.8 D (8.4-10.2) mg/dL COVID-19 (ALEX) (Negative) COVID-19 Clin Com Influenza Type A (KAYLA) (Negative) Influenza Type B (KAYLA) (Negative) Influenza A & B Note Independent Interpretation I performed an independent interpretation of an: EKG Interpretation: Showed a sinus pattern heart rate is 100 MA QRS QTC within normal limits there is nonspecific T-wave abnormalities noted in V2 V3 V4 V5. There is no old EKG to compare. Chronic Conditions Patient?s care impacted by: Diabetes and Hypertension Discharge Plan Discharge Clinical Impression: Bronchitis Patient Disposition: Home, Self-Care Instructions: Acute Bronchitis (ED) Additional Instructions: Tylenol for fever. Monitor your Coumadin carefully while you are on the antibiotic. Prescriptions: New doxycycline hyclate 100 mg capsule 100 mg PO BID 7 Days Qty: 14 0RF No Action warfarin 5 mg tablet 5 mg PO DAILY Qty: 90 3RF Protocol: Dose Management Condition: Sunday (Week One) Dose/Route: 5 mg Instruction: 1 x 5 mg tablet Condition: Sunday Dose/Route: 2.5 mg Instruction: 0.5 x 5 mg tablets Condition: Sunday Dose/Route: 5 mg Instruction: 1 x 5 mg tablet Condition: Sunday Dose/Route: 2.5 mg Instruction: 0.5 x 5 mg tablets Condition: Dose/Route: 5 mg Instruction: 1 x 5 mg tablet Condition: Sunday Dose/Route: 2.5 mg Instruction: 0.5 x 5 mg tablets Condition: Sunday Dose/Route: 5 mg Instruction: 1 x 5 mg tablet Condition: Sunday (Week Two) Dose/Route: 5 mg Instruction: 1 x 5 mg tablet Condition: Sunday Dose/Route: 2.5 mg Instruction: 0.5 x 5 mg tablets Condition: Sunday Dose/Route: 5 mg Instruction: 1 x 5 mg tablet Condition: Sunday Dose/Route: 2.5 mg Instruction: 0.5 x 5 mg tablets Condition: Dose/Route: 5 mg Instruction: 1 x 5 mg tablet Condition: Sunday Dose/Route: 2.5 mg Instruction: 0.5 x 5 mg tablets Condition: Sunday Dose/Route: 5 mg Instruction: 1 x 5 mg tablet Protocol Text: Adjustment Start Date: 08/17/22 INR Value: 3.4 INR Date: 08/17/22 Recheck Date: 08/31/22 Additional Instructions: INCREASE GREENS THIS WEEK AND NEXT IF APPETITE DOES NOT IMPROVE DECREASE SAT DOSE TO 2.5MG levothyroxine 100 mcg tablet 100 mcg PO DAILY 30 Days Qty: 30 3RF loratadine 10 mg tablet 10 mg PO DAILY 14 Days Qty: 14 0RF clobetasol 0.05 % solution 1 appl topical DAILY Qty: 50 2RF gabapentin 100 mg capsule 200 mg PO DAILY 30 Days Qty: 60 3RF fluocinonide 0.05 % solution topical cholecalciferol (vitamin D3) 50 mcg (2,000 unit) capsule 100 mcg PO DAILY 30 Days Qty: 60 11RF prednisone 10 mg tablet 10 mg PO DAILY magnesium oxide 250 mg magnesium tablet 250 mg PO BID Kidney Korrect PO Rx Instructions: 1 tab daily gabapentin 300 mg capsule PO RETUXIN IV Label Comments: [facility] 1ST INFUSION- 08/11/2022 2ND INFUSION DATE PENDING
[2022-08-18 06:28] LABS: Anion Gap 12 (12-20); Blood Urea Nitrogen 49 mg/dL (9-16); Calcium 8.8 mg/dL (8.4-10.2); Carbon Dioxide 13 mmol/L (22-29); Chloride 114 mmol/L (96-108); Creatinine Clr Calc Pharmacy 19.6; Estimated Glomerular Filt Rate 18; Glucose Random 90 mg/dL (60-115); Sodium 135 mmol/L (135-145)
[2022-08-18 06:29] LABS: SLIDE REVIEW VERIFIED
[2022-08-18] MEDS: 0.9 % Sodium Chloride 1,000 ML 999 ML IV (06:29)
[2022-08-18] MEDS: guaiFEN/Codeine SF 200/20/10ML 10 ML LIQUID PO (06:29)
[2022-08-18 06:47] LABS: INTERNATIONAL NORM RATIO 2.9 (0.9-1.1); Prothrombin Time 35.3 SEC (10.0-13.1)
== END 2022-08-18 07:16 | disposition home or self-care (01) ==
PROVIDERS: Emergency Provider Emergency Medicine Emergency Medical Services; PCP Physician Assistant
DX: J40 Bronchitis, not specified as acute or chronic (principal); R50.9 Fever, unspecified; R05.9 Cough, unspecified; Z20.822 Contact with and (suspected) exposure to COVID-19; Z20.828 Contact with and (suspected) exposure to other viral communicable diseases; Z79.899 Other long term (current) drug therapy
CPT/HCPCS: 36415; 71045; 80048; 85025; 85610; 87502; 87635; 93005; 99283; 99285

== ENCOUNTER 2022-08-24 09:18 | Outpatient (REF) | payer OTHER, MEDICAID, SELFPAY ==
[2022-08-24 11:29] LABS: Free T4 (Free Thyroxine) 0.93 ng/dL (0.71-1.85); Thyroid Stimulating Hormone 1.84 uIU/mL (0.32-4.0)
[2022-08-25 08:09] LABS: Triiodothyronine T3 Total 42 ng/dL (76-181)
== END 2022-08-24 09:19 | disposition home or self-care (01) ==
LOC: HO.LAB 09:18
PROVIDERS: PCP Physician Assistant; Visit Provider Internal Medicine
DX: E03.8 Other specified hypothyroidism (principal); E06.3 Autoimmune thyroiditis
CPT/HCPCS: 36415; 84439; 84443; 84480

== ENCOUNTER → 2022-09-04 13:28 | Outpatient (BNVA) | payer OTHER, MEDICAID, SELFPAY | PROVIDERS: PCP Physician Assistant; Visit Provider Internal Medicine | DX: Z13.89 Encounter for screening for other disorder (principal) ==

== ENCOUNTER 2022-10-05 15:15 | Outpatient (REF) | payer OTHER, MEDICAID, SELFPAY ==
[2022-10-05 15:42] LABS: INTERNATIONAL NORM RATIO 4.8 (0.9-1.1); Prothrombin Time 58.4 SEC (10.0-13.1)
== END 2022-10-05 15:16 | disposition home or self-care (01) ==
LOC: HO.LAB 15:15
PROVIDERS: PCP Physician Assistant; Visit Provider Internal Medicine
DX: I26.99 Other pulmonary embolism without acute cor pulmonale (principal); Z51.81 Encounter for therapeutic drug level monitoring; Z79.01 Long term (current) use of anticoagulants
CPT/HCPCS: 36415; 85610; 99212

== ENCOUNTER → 2022-10-06 13:05 | Outpatient (BNVA) | payer OTHER, MEDICAID, SELFPAY | PROVIDERS: PCP Physician Assistant; Visit Provider Internal Medicine | DX: I26.99 Other pulmonary embolism without acute cor pulmonale (principal); Z51.81 Encounter for therapeutic drug level monitoring; Z79.01 Long term (current) use of anticoagulants | CPT/HCPCS: 85610; 99211 ==

== ENCOUNTER → 2022-10-13 15:14 | Outpatient (BNVA) | payer OTHER, MEDICAID, SELFPAY | PROVIDERS: PCP Physician Assistant; Visit Provider Internal Medicine | DX: I26.99 Other pulmonary embolism without acute cor pulmonale (principal); Z51.81 Encounter for therapeutic drug level monitoring; Z79.01 Long term (current) use of anticoagulants | CPT/HCPCS: 85610; 99211 ==

== ENCOUNTER → 2022-10-26 15:20 | Outpatient (BNVA) | payer OTHER, MEDICAID, SELFPAY | PROVIDERS: PCP Physician Assistant; Visit Provider Internal Medicine | DX: I26.99 Other pulmonary embolism without acute cor pulmonale (principal); Z51.81 Encounter for therapeutic drug level monitoring; Z79.01 Long term (current) use of anticoagulants | CPT/HCPCS: 85610; 99211 ==

== ENCOUNTER 2022-11-06 16:08 | Outpatient (REF) | payer OTHER, MEDICAID, SELFPAY ==
[2022-11-06 18:13] LABS: Anion Gap 9 (12-20); Blood Urea Nitrogen 44 mg/dL (9-16); Calcium 9.1 mg/dL (8.4-10.2); Carbon Dioxide 19 mmol/L (22-29); Chloride 115 mmol/L (96-108); Estimated Glomerular Filt Rate 19; Potassium 4.2 mmol/L (3.3-5.1); Sodium 139 mmol/L (135-145)
== END 2022-11-06 16:09 | disposition home or self-care (01) ==
LOC: HO.LAB 16:08
PROVIDERS: PCP Physician Assistant; Visit Provider Internal Medicine Hypertension Specialist
DX: N18.4 Chronic kidney disease, stage 4 (severe) (principal)
CPT/HCPCS: 36415; 80051; 82310; 82565; 84520

== ENCOUNTER → 2022-11-21 15:04 | Outpatient (BNVA) | payer OTHER, MEDICAID, SELFPAY | PROVIDERS: PCP Physician Assistant; Visit Provider Internal Medicine | DX: I26.99 Other pulmonary embolism without acute cor pulmonale (principal); Z51.81 Encounter for therapeutic drug level monitoring; Z79.01 Long term (current) use of anticoagulants | CPT/HCPCS: 85610; 99211 ==

== ENCOUNTER 2022-11-24 15:55 | Outpatient (REF) | payer OTHER, MEDICAID, SELFPAY ==
--- NOTE | ~2022-11-24 | MM_ITS ---
EXAMINATION: MM SCREENING DIGITAL BREAST TOMOSYNTHESIS, BILATERAL CLINICAL INFORMATION: Screening. Asymptomatic. The lifetime risk of breast cancer based on the Tyrer-Cuzick Model is 5%. COMPARISON: Mammography: 07/24/2017, 02/13/2012 TECHNIQUE: Digital breast tomosynthesis is performed in both the craniocaudal and mediolateral oblique views along with computer-aided detection (CAD). Synthesized 2D images are generated from the tomosynthesis. FINDINGS: There are scattered areas of fibroglandular density (ACR BI-RADS breast composition Category b). Breast tissue composition borders on heterogeneously dense. There are scattered bilateral asymmetries similar to prior exam. No developing density or architectural abnormality. There are no significant masses, abnormal calcifications, or other abnormalities. Scattered bilateral axillary nodes are normal in size, decreased from prior exam 2017. The skin contours are smooth. No skin thickening or coarsening of the stromal markings. MM/MM tomosynthesis screening BI IMPRESSION: No mammographic evidence of malignancy. ASSESSMENT: BI-RADS 2: Benign RECOMMENDATION: Routine annual mammography screening. This patient's information was entered into a reminder system with a target due date for their next mammogram.
== END 2022-11-24 15:56 | disposition home or self-care (01) ==
LOC: HO.MAMMO 15:55
PROVIDERS: PCP Physician Assistant; Visit Provider Physician Assistant
DX: Z12.31 Encounter for screening mammogram for malignant neoplasm of breast (principal)
CPT/HCPCS: 77063; 77067

== ENCOUNTER 2022-12-05 15:20 | Outpatient (REF) | payer OTHER, MEDICAID, SELFPAY ==
[2022-12-05 15:48] LABS: INTERNATIONAL NORM RATIO 4.7 (0.9-1.1); Prothrombin Time 57.2 SEC (10.0-13.1)
== END 2022-12-05 15:21 | disposition home or self-care (01) ==
LOC: HO.LAB 15:20
PROVIDERS: PCP Physician Assistant; Visit Provider Internal Medicine
DX: I26.99 Other pulmonary embolism without acute cor pulmonale (principal); Z51.81 Encounter for therapeutic drug level monitoring; Z79.01 Long term (current) use of anticoagulants
CPT/HCPCS: 36415; 85610; 99212

== ENCOUNTER → 2022-12-08 15:04 | Outpatient (BNVA) | payer OTHER, MEDICAID, SELFPAY | PROVIDERS: PCP Physician Assistant; Visit Provider Internal Medicine | DX: I26.99 Other pulmonary embolism without acute cor pulmonale (principal); Z51.81 Encounter for therapeutic drug level monitoring; Z79.01 Long term (current) use of anticoagulants | CPT/HCPCS: 85610; 99211 ==

== ENCOUNTER 2022-12-09 07:06 | Outpatient (REF) | payer OTHER, MEDICAID, SELFPAY ==
[2022-12-09 08:21] LABS: Cholesterol 247 mg/dL; HDL Cholesterol 31 mg/dL; LDL Cholesterol Calculated 147 mg/dl; Triglycerides 349 mg/dL
[2022-12-09 08:38] LABS: Free T4 (Free Thyroxine) 1.06 ng/dL (0.71-1.85)
[2022-12-10 21:29] LABS: LDL Cholesterol Direct 135 mg/dL (<100)
== END 2022-12-09 07:07 | disposition home or self-care (01) ==
LOC: HO.LAB 07:06
PROVIDERS: PCP Physician Assistant; Visit Provider Internal Medicine
DX: E06.3 Autoimmune thyroiditis (principal); E03.8 Other specified hypothyroidism; E78.1 Pure hyperglyceridemia
CPT/HCPCS: 36415; 80061; 83721; 84439; 84443

== ENCOUNTER → 2022-12-13 12:50 | Outpatient (BNVA) | payer OTHER, MEDICAID, SELFPAY | PROVIDERS: PCP Physician Assistant; Visit Provider Internal Medicine ==

== ENCOUNTER → 2022-12-22 15:13 | Outpatient (BNVA) | payer OTHER, MEDICAID, SELFPAY | PROVIDERS: PCP Physician Assistant; Visit Provider Internal Medicine | DX: I26.99 Other pulmonary embolism without acute cor pulmonale (principal); Z51.81 Encounter for therapeutic drug level monitoring; Z79.01 Long term (current) use of anticoagulants | CPT/HCPCS: 85610; 99211 ==

== ENCOUNTER → 2023-01-10 14:59 | Outpatient (BNVA) | payer OTHER, MEDICAID, SELFPAY | PROVIDERS: PCP Physician Assistant; Visit Provider Internal Medicine | DX: I26.99 Other pulmonary embolism without acute cor pulmonale (principal); Z51.81 Encounter for therapeutic drug level monitoring; Z79.01 Long term (current) use of anticoagulants | CPT/HCPCS: 85610; 99211 ==

== ENCOUNTER → 2023-01-17 15:24 | Outpatient (BNVA) | payer OTHER, MEDICAID, SELFPAY | PROVIDERS: PCP Physician Assistant; Visit Provider Internal Medicine | DX: Z51.81 Encounter for therapeutic drug level monitoring (principal); Z79.01 Long term (current) use of anticoagulants; I26.99 Other pulmonary embolism without acute cor pulmonale | CPT/HCPCS: 85610; 99211 ==

== ENCOUNTER 2023-01-31 15:06 | Outpatient (REF) | payer OTHER, MEDICAID, SELFPAY ==
[2023-01-31 15:51] LABS: MANUAL DIFF FLAG NO
[2023-01-31 16:11] LABS: Basophils Percent Auto 0.4 % (0-2); Eosinophils Absolute Auto 0.3 X10*3/uL (0.0-0.4); Eosinophils Percent Auto 4.2 % (0-4); Hematocrit 32.5 % (37.0-47.0); Hemoglobin 10.2 g/dl (12.0-16.0); Imm Gran Abs Auto 0.02 X10*3/uL (0.00-0.03); Imm Gran Pct Auto 0.3 % (0.0-0.4); Lymphocytes Absolute Auto 2.2 X10*3/uL (1.2-4.9); Mean Corpuscular HGB Conc 31.4 g/dl (31.0-35.0); Mean Corpuscular Hemoglobin 29.5 pg (27.0-33.0); Mean Corpuscular Volume 93.9 fL (80.0-98.0); Mean Platelet Volume 11.4 fL (9.4-12.3); Monocytes Absolute Auto 0.5 X10*3/uL (0.1-1.2); Monocytes Percent Auto 7.1 % (2-11); Neutrophils Absolute Auto 3.9 x10*3/uL (2.0-8.3); Platelet Count 249 X10*3/uL (160-400); Red Blood Count 3.46 X10*6/uL (4.20-5.50); Red Cell Distribution Width 13.8 % (11.0-16.0); White Blood Count 6.9 X10*3/uL (4.8-10.8)
[2023-01-31 17:05] LABS: Alanine Aminotransferase 14 U/L (0-31); Albumin Level 3.8 g/dL (3.5-5.0); Alkaline Phosphatase 103 U/L (39-117); Anion Gap 10 (12-20); Aspartate Amino Transferase 18 U/L (5-31); Bilirubin Total 0.4 mg/dL (0.0-1.0); Blood Urea Nitrogen 45 mg/dL (9-16); Calcium 9.7 mg/dL (8.4-10.2); Carbon Dioxide 19 mmol/L (22-29); Chloride 116 mmol/L (96-108); Estimated Glomerular Filt Rate 21; Glucose Random 102 mg/dL (60-115); Potassium 3.8 mmol/L (3.3-5.1); Sodium 141 mmol/L (135-145); Total Protein 7.1 g/dL (6.5-8.0)
[2023-02-13 14:53] LABS: PTHI 216 pg/mL (16-77)
== END 2023-01-31 15:07 | disposition home or self-care (01) ==
LOC: CF 15:06
PROVIDERS: Internal Medicine Hypertension Specialist; PCP Physician Assistant; Visit Provider Internal Medicine
DX: N18.4 Chronic kidney disease, stage 4 (severe) (principal); M32.14 Glomerular disease in systemic lupus erythematosus
CPT/HCPCS: 36415; 80053; 83970; 85025; 85610; 99211

== ENCOUNTER 2023-02-15 15:16 | Outpatient (AMB) | payer OTHER, MEDICAID, SELFPAY ==
[2023-02-15 15:22] LABS: Prothrombin Time Whole Bld POC 33.9 sec (11.1-13.5); ~PT, ~INR - Anti Coag Clinic 2.8 (0.9-1.1)
--- NOTE | 2023-02-15 15:23 | MHC.OFFVISCO ---
Intake Intake Visit Reasons: Anticoagulation Allergies rituximab [From Rituxan] Allergy (Severe, Verified 02/15/23 15:20) Anaphylaxis cephalexin [From Keflex] Allergy (Unknown, Verified 02/15/23 15:20) RED+ITCHY,RASH Cephalosporins [CEPHALOSPORINS] Allergy (Unknown, Verified 02/15/23 15:20) RED+ITCHY Sulfa (Sulfonamide Antibiotics) [SULFA(SULFONAMIDE ANTIBIOTICS)] Allergy (Unknown, Verified 02/15/23 15:20) RED+ITCHY retuxin Adverse Reaction (Severe, Uncoded 02/15/23 15:20) Abdominal Pain Medication List - Last Reconciled 02/15/23 by Jessica Leary RN atorvastatin 20 mg PO BEDTIME 30 days cholecalciferol (vitamin D3) 100 mcg (2 x 50 mcg (2,000 unit)) PO DAILY 30 days clobetasol 0.05% 1 appl topical DAILY fluocinonide 0.05% appl topical gabapentin 200 mg (2 x 100 mg) PO DAILY 30 days levothyroxine 100 mcg PO DAILY 90 days loratadine 10 mg PO DAILY 14 days magnesium oxide 250 mg PO BID prednisone 10 mg PO DAILY warfarin 5 mg See Protocol PO DAILY Nursing Note INR: 2.8 in therapeutic range FEELING BETTER ST[place]ON RENAL DIET - MAY HAVE 2ND OPNION Medications and supplements reviewed No changes in health, diet, medications, or supplements, Denies any signs and symptoms of bleeding or bruising or clotting. 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
== END 2023-02-15 15:26 | disposition home or self-care (01) ==
LOC: HO.ACS 15:16
PROVIDERS: PCP Physician Assistant; Visit Provider Internal Medicine
DX: Z79.01 Long term (current) use of anticoagulants (principal)

== ENCOUNTER → 2023-02-15 15:16 | Outpatient (BNVA) | payer OTHER, MEDICAID, SELFPAY | PROVIDERS: PCP Physician Assistant; Visit Provider Internal Medicine | DX: Z51.81 Encounter for therapeutic drug level monitoring (principal); Z79.01 Long term (current) use of anticoagulants; I26.99 Other pulmonary embolism without acute cor pulmonale | CPT/HCPCS: 85610; 99211 ==

== ENCOUNTER 2023-03-01 15:14 | Outpatient (AMB) | payer OTHER, MEDICAID, SELFPAY ==
--- NOTE | 2023-03-01 15:19 | MHC.OFFVISCO ---
Intake Intake Visit Reasons: Anticoagulation Allergies rituximab [From Rituxan] Allergy (Severe, Verified 03/01/23 15:15) Anaphylaxis cephalexin [From Keflex] Allergy (Unknown, Verified 03/01/23 15:15) RED+ITCHY,RASH Cephalosporins [CEPHALOSPORINS] Allergy (Unknown, Verified 03/01/23 15:15) RED+ITCHY Sulfa (Sulfonamide Antibiotics) [SULFA(SULFONAMIDE ANTIBIOTICS)] Allergy (Unknown, Verified 03/01/23 15:15) RED+ITCHY retuxin Adverse Reaction (Severe, Uncoded 03/01/23 15:15) Abdominal Pain Nursing Note INR: 3.0- in therapeutic range Medications and supplements reviewed No changes in health, diet, medications, or supplements, Denies any signs and symptoms of bleeding or bruising or clotting. Bleeding, bruising, clotting discussed Nutritional guidance given- eat a green today Dose: 5mg x 2, 2.5mg x 5 F/U INR: 2 weeks Patient verbalizes understanding of instructions given pt states she has been eating more fruits, less salads. 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
== END 2023-03-01 15:26 | disposition home or self-care (01) ==
LOC: HO.ACS 15:14
PROVIDERS: PCP Physician Assistant; Visit Provider Internal Medicine
DX: Z79.01 Long term (current) use of anticoagulants (principal)

== ENCOUNTER → 2023-03-01 15:14 | Outpatient (BNVA) | payer OTHER, MEDICAID, SELFPAY | PROVIDERS: PCP Physician Assistant; Visit Provider Internal Medicine | DX: Z51.81 Encounter for therapeutic drug level monitoring (principal); Z79.01 Long term (current) use of anticoagulants; I26.99 Other pulmonary embolism without acute cor pulmonale | CPT/HCPCS: 85610; 99211 ==

== ENCOUNTER 2023-04-10 15:39 | Outpatient (AMB) | payer OTHER, MEDICAID, SELFPAY ==
--- NOTE | 2023-04-10 15:45 | MHC.PC.OV ---
Vital Signs 04/10/23 15:46 Height 5 ft Weight 117 lb 2 oz BMI 22.9 BP 120/70 Blood Pressure Location Lt brachial Position Sitting Pulse 67 Pulse Source Pulse Oximeter Pulse Oximetry (%) 97 Oxygen Delivery Method Room Air Intake Visit Reasons: Annual exam Intake Note: Patient is here today for a physical. General Superintendent Required: No Poultry Cleaner: Not Required per policy Accompanied by: Self / Same As Patient Allergies rituximab [From Rituxan] Allergy (Severe, Verified 04/10/23 16:16) Anaphylaxis cephalexin [From Keflex] Allergy (Unknown, Verified 04/10/23 16:16) RED+ITCHY,RASH Cephalosporins [CEPHALOSPORINS] Allergy (Unknown, Verified 04/10/23 16:16) RED+ITCHY Sulfa (Sulfonamide Antibiotics) [SULFA(SULFONAMIDE ANTIBIOTICS)] Allergy (Unknown, Verified 04/10/23 16:16) RED+ITCHY retuxin Adverse Reaction (Severe, Uncoded 04/10/23 15:46) Abdominal Pain Medication List - Last Reconciled 04/10/23 by Franklin Sanchez PA-C atorvastatin 20 mg PO BEDTIME 30 days cholecalciferol (vitamin D3) 100 mcg (2 x 50 mcg (2,000 unit)) PO DAILY 30 days clobetasol 0.05% 1 appl topical DAILY fluocinonide 0.05% appl topical gabapentin 200 mg (2 x 100 mg) PO DAILY 30 days levothyroxine 100 mcg PO DAILY 90 days loratadine 10 mg PO DAILY 14 days magnesium oxide 250 mg PO BID prednisone 10 mg PO DAILY warfarin 5 mg See Protocol PO DAILY Tobacco use date assessed: 04/10/23 Dental Screening Dental Screen Date: 04/10/23 Did you have a dental visit in the last 12 months?: No Did you have a dental problem in the last 6 months where you did not have access to dental care?: No Was dental information given to patient?: No HPI Annual exam HPI Details Patient is a 57-year-old female here today for a routine annual physical.? Patient has a past medical history significant for SLE, hypothyroidism, hypertriglyceridemia, chronic anticoagulation use, former smoker. Concern--> has developed a stye over her left lower eyelid after doing heard work. Will supply patient with erythromycin ointment . CHRONIC MEDICAL CONDITIONS--> SLE (glomerularnephritis) Report she has stage 5 renal disease . Was seen seeing a dietition and would like to see a dietitian again.? Has been able to lose a significant amount weight due to lifestyle changes. Continues on anticoagulation without any overt signs of bleeding. Also followed by a picture painter and considering dialysis.? Has trialed retuxin though had a terrible adverse reaction. ?? Has use magnesium supplementation in the past with good effect. At this point there is no further treatment that has been covered by insurance or patient has been able to tolerate for her glomerular nephritis. She has been told to establish care with a food beverage supervisor to help control her lupus. ? .. Former smoker:? She reports she has quit smoking over the last month and a due to fears of worsening kidney function. .. Hypothyroidism:? Patient's thyroid has now normalized on levothyroxine 100 mcg .? Continues to follow Endocrinology as well ? Colonoscopy done in 2019, repeat 10 years Vaccine: Up-to-date COVID, pneumonia, needs tetanus vaccine mammogram: Done November 2022 [facility] Medical History History of pulmonary embolism Hypertriglyceridemia Hypothyroidism Prediabetes SLE glomerulonephritis syndrome Vitamin D deficiency Surgical History Hx of tubal ligation Family History Father Family history unknown Mother Hypertension Diabetes Deep vein thrombosis CVA (cerebral vascular accident) Brother CVA (cerebral vascular accident), Onset Age: 48 Brother CVA (cerebral vascular accident), Onset Age: 38 Social History Housing: House Alcohol intake: former Patient Tobacco Use Status: Former Tobacco user Quit Date: 03/03/22 e-Cigarette/Vaping Use: Never Used service: No Current occupational status: employed Current occupation: [employer] Cognitive needs: No Hearing needs: No Vision needs: No Questionnaire Thrive Questionnaire Date Thrive assessed: 10/10/22 CHE-7 AMB Questionnaire CHE-7 Date CHE - 7 assessed: 10/10/22 Source: Developed by Drs. Gino Young, Seble Chahal, Dennis Zendejas and colleagues, with an educational clara from [employer] [facility] [employer]. Review of Systems Const Denies body aches, Denies chills, Denies excessive sweating, Denies fatigue, Denies fever(s) and Denies headache(s) Eyes Denies blurry vision ENT Denies dysphagia, Denies vertigo, Denies dizziness, Denies headache(s), Denies hearing loss and Denies tinnitus Card Denies chest pain, Denies chest pain with activity, Denies syncope, Denies irregular heart rhythm and Denies dyspnea Resp Denies chest congestion, Denies cough, Denies hemoptysis, Denies dyspnea and Denies wheezing GI Denies abdominal pain, Denies melena, Denies hematochezia, Denies coffee ground emesis, Denies dysphagia, Denies diarrhea, Denies nausea and Denies vomiting Denies urinary frequency, Denies dysuria, Denies urinary hesitancy and Denies urinary urgency Musc Denies arthralgias, Denies limited range of motion, Denies muscle cramps and Denies muscle weakness Skin/Breast Denies rash and Denies skin ulcer Neuro Denies Abnormal speech present, Denies confusion, Denies vertigo, Denies dizziness, Denies syncope, Denies headache(s), Denies memory loss and Denies seizure-like activity Psych Denies anxiety, Denies confusion, Denies depression, Denies memory loss, Denies panic attacks and Denies paranoia Endo Denies excessive sweating, Denies fatigue, Denies flushing, Denies polydipsia and Denies polyuria Aller/Immun Denies wheezing Physical exam (Primary Care) Vital Signs: Last Vital Signs Pulse 67 04/10/23 15:46 BP 120/70 04/10/23 15:46 Pulse Ox 97 04/10/23 15:46 Oxygen Delivery Method Room Air 04/10/23 15:46 BMI result Body Mass Index 22.9 Tobacco/Smoking Status: Tobacco use Status Tobacco use date assessed 04/10/23 04/10/23 15:56 Patient Tobacco Use Status Former Tobacco user 04/10/23 15:56 e-Cigarette/Vaping Use Never Used 04/10/23 15:56 Thrive Assessment: Date of Thrive Assessment Date Thrive assessed 10/10/22 04/10/23 15:56 Const General: cooperative, comfortable, no acute distress, alert and awake; No confusion Orientation/consciousness: oriented to person, oriented to place, patient oriented x3 and No confusion HENMT Head: Yes normocephalic Ears: external ears normal and TM's normal bilaterally Face and sinus: No sinus tenderness Mouth: Normal oral and palatal mucosa present and tongue normal Teeth and gingiva: dentition normal and gingiva normal Throat: Yes posterior oropharynx normal, Yes tonsils normal and Yes uvula midline Eyes Conjunctivae: conjunctivae normal Sclerae: sclerae normal Pupils: Equal, round and reactive pupils present EOM: EOMs intact bilaterally Direct Ophthalmoscopy: No no photophobia Neck Neck: Yes no lymphadenopathy, No tender and Yes no JVD Thyroid: Thyroid normal Carotids: no bruits Chest Chest palpation & inspection: no tenderness Resp Effort & Inspection: normal respiratory effort, no audible wheezes, not labored and no stridor Auscultation: no crackles, no rales, no rhonchi and no wheezes Cardio Jugular venous distension: no JVD Rate: regular rate, not bradycardic and not tachycardic Rhythm: regular rhythm Bruits: no carotid bruits Peripheral pulses: Peripheral pulses 2+ throughout GI Inspection: Yes normal to inspection, No abdominal wall ecchymosis and No visible herniation Palpation (GI): Soft to palpation, nontender, no guarding, not rigid and No hepatosplenomegaly present Auscultation: normoactive bowel sounds General: Yes no CVA tenderness Back/Spine/Pelvis Back: no CVA tenderness and No back tenderness Cervical Spine: cervical ROM normal Thoracic/Lumbar Spine: thoracic and lumbar spine normal to inspection, straight leg raise negative bilaterally, No thoraco-lumbar ROM limited and No lumbar spinal tenderness Skin Lesions: no lesions Rashes: no rashes Wounds: no wounds Neuro General: oriented to person, oriented to place, patient oriented x3, CN's II-XI intact bilaterally and No confusion Cranial nerves: Yes Equal, round and reactive pupils present and Yes Normal accommodation reflex present Cognition (Neuro): normal cognition Speech: No Abnormal speech present Gait exam (Neuro): Normal gait present Motor exam (neuro): 5/5 motor strength present throughout Extrem Right upper extremity: full ROM; no cyanosis Left upper extremity: full ROM; no cyanosis Right lower extremity: no edema Left lower extremity: no edema Psych Appearance: grossly normal Mental Status: mental status grossly normal Affect: normal affect Attitude: cooperative Thought process: Normal thought process present Assessment and Plan Assessment & Plan (1) Annual physical exam: Code(s): Z00.00 - Encounter for general adult medical examination without abnormal findings (2) SLE glomerulonephritis syndrome: Code(s): M32.14 - Glomerular disease in systemic lupus erythematosus Plan: As per HPI patient has lupus glomerulonephritis. Followed by picture painter though reports she has no further follow-up. Has tried multiple medications for her glomerulonephritis though had intolerant side effects. She is interested in a 2nd opinion from a picture painter at [facility]. (3) Hypertriglyceridemia: Code(s): E78.1 - Pure hyperglyceridemia Plan: Patient would like to reestablish care with a dietitian to help her manage her diet. Has history of hypertriglyceridemia. Also needs to follow low protein low sodium diet due to her glomerular nephritis. 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 Most recent TSH has been stable. Does follow Endocrinology here in [place]. (5) Lupus (systemic lupus erythematosus): Code(s): M32.9 - Systemic lupus erythematosus, unspecified Qualifiers: Systemic lupus erythematosus organ involvement: glomerular disease Systemic lupus erythematosus type: other Qualified Code(s): M32.14 - Glomerular disease in systemic lupus erythematosus Plan: As above (6) Stye: Code(s): H00.019 - Hordeolum externum unspecified eye, unspecified eyelid Qualifiers: Eyelid: lower Laterality: left Qualified Code(s): H00.015 - Hordeolum externum left lower eyelid Plan: Will supply with erythromycin ointment for her stye. Orders: Orders Comprehensive [place]. Panel Fast 04/10/23 M32.14 - Glomerular disease in systemic lupus erythematosus Lipid Panel 04/10/23 E78.1 - Pure hyperglyceridemia TSH reflex Free T4 04/10/23 E03.8 - Other specified hypothyroidism, E06.3 - Autoimmune thyroiditis Complete Blood Count no Diff 04/10/23 E78.1 - Pure hyperglyceridemia Referrals Nephrology Referral M32.14 - Glomerular disease in systemic lupus erythematosus Rheumatology Referral M32.14 - Glomerular disease in systemic lupus erythematosus Vmware Administrator Nutrition Referral M32.14 - Glomerular disease in systemic lupus erythematosus Medications: New erythromycin 1 appl ophthalmic (eye) DAILY 15 days 3.5 grams 0RF H00.015 - Hordeolum externum left lower eyelid Coding Level of Care Code Est Pt Prev Care 40-64y(70225) Diagnoses Annual physical exam Z00.00 SLE glomerulonephritis syndrome M32.14 Hypertriglyceridemia E78.1 Hypothyroidism E03.8; E06.3 Hypothyroidism 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
[2023-04-10 15:46] VITALS: BP 120/70; PULSE 67; O2SAT 97; BMI 22.9
== END 2023-04-10 16:41 | disposition home or self-care (01) ==
PROVIDERS: PCP Physician Assistant; Visit Provider Physician Assistant
DX: Z00.00 Encounter for general adult medical examination without abnormal findings (principal); M32.14 Glomerular disease in systemic lupus erythematosus; E06.3 Autoimmune thyroiditis; E03.8 Other specified hypothyroidism; H00.015 Hordeolum externum left lower eyelid; E78.1 Pure hyperglyceridemia
CPT/HCPCS: 99396

== ENCOUNTER 2023-04-11 15:17 | Outpatient (AMB) | payer OTHER, MEDICAID, SELFPAY ==
[2023-04-11 15:27] LABS: Prothrombin Time Whole Bld POC 26.7 sec (11.1-13.5); ~PT, ~INR - Anti Coag Clinic 2.2 (0.9-1.1)
--- NOTE | 2023-04-11 15:38 | MHC.OFFVISCO ---
Intake Intake Visit Reasons: Anticoagulation Allergies rituximab [From Rituxan] Allergy (Severe, Verified 04/11/23 15:19) Anaphylaxis cephalexin [From Keflex] Allergy (Unknown, Verified 04/11/23 15:19) RED+ITCHY,RASH Cephalosporins [CEPHALOSPORINS] Allergy (Unknown, Verified 04/11/23 15:19) RED+ITCHY Sulfa (Sulfonamide Antibiotics) [SULFA(SULFONAMIDE ANTIBIOTICS)] Allergy (Unknown, Verified 04/11/23 15:19) RED+ITCHY retuxin Adverse Reaction (Severe, Uncoded 04/10/23 15:46) Abdominal Pain Medication List - Last Reconciled 04/11/23 by Stephanie Tran RN atorvastatin 20 mg PO BEDTIME 30 days cholecalciferol (vitamin D3) 100 mcg (2 x 50 mcg (2,000 unit)) PO DAILY 30 days clobetasol 0.05% 1 appl topical DAILY erythromycin 1 appl ophthalmic (eye) DAILY 15 days fluocinonide 0.05% appl topical gabapentin 200 mg (2 x 100 mg) PO DAILY 30 days levothyroxine 100 mcg PO DAILY 90 days loratadine 10 mg PO DAILY 14 days magnesium oxide 250 mg PO BID prednisone 10 mg PO DAILY warfarin 5 mg See Protocol PO DAILY Nursing Note NO CP,SOB,DIET/MED CHANGES,FALLS OR SX OF BLEEDING. CONTINUE PRESENT DOSE AND FOLLOW-UP IN 3 WEEKS. GOOD UNDERSTANDING OF DOSING INSTR. Anti-Coag Initial Assessment Social Hx Patient Tobacco Use Status: Former Tobacco user Quit Date: 03/03/22 alcohol intake: former Alcohol intake frequency: does not drink Coding Level of Care Code Est Patient Level 1 Diagnoses Current use of anticoagulant therapy Z79.01 Assessment & Plan Assessment & Plan (1) Current use of anticoagulant therapy: Code(s): Z79.01 - outside rigger (current) use of anticoagulants Category: Medical
== END 2023-04-11 15:39 | disposition home or self-care (01) ==
LOC: HO.ACS 15:17
PROVIDERS: PCP Physician Assistant; Visit Provider Internal Medicine
DX: Z79.01 Long term (current) use of anticoagulants (principal)

== ENCOUNTER → 2023-04-11 15:17 | Outpatient (BNVA) | payer OTHER, MEDICAID, SELFPAY | PROVIDERS: PCP Physician Assistant; Visit Provider Internal Medicine | DX: I26.99 Other pulmonary embolism without acute cor pulmonale (principal); Z51.81 Encounter for therapeutic drug level monitoring; Z79.01 Long term (current) use of anticoagulants | CPT/HCPCS: 85610; 99211 ==

== ENCOUNTER 2023-04-27 15:53 | Outpatient (REF) | payer OTHER, MEDICAID, SELFPAY ==
[2023-04-27 17:29] LABS: Anion Gap 14 (12-20); Blood Urea Nitrogen 41 mg/dL (9-16); Calcium 9.6 mg/dL (8.4-10.2); Carbon Dioxide 17 mmol/L (22-29); Chloride 113 mmol/L (96-108); Estimated Glomerular Filt Rate 18; Glucose Random 102 mg/dL (60-115); Potassium 4.4 mmol/L (3.3-5.1); Sodium 140 mmol/L (135-145)
[2023-04-27 18:43] LABS: Creatinine Urine 113.89 mg/dL
[2023-04-27 19:03] LABS: Protein/Creatinine Ratio, Ur 3.65 (<0.2); Total Protein Urine Random 416 mg/dL (<12)
== END 2023-04-27 15:54 | disposition home or self-care (01) ==
LOC: HO.LAB 15:53
PROVIDERS: PCP Internal Medicine; Visit Provider Internal Medicine Hypertension Specialist
DX: E78.1 Pure hyperglyceridemia (principal); M32.14 Glomerular disease in systemic lupus erythematosus
CPT/HCPCS: 36415; 80048; 82570; 84156

== ENCOUNTER 2023-05-02 15:02 | Outpatient (AMB) | payer OTHER, MEDICAID, SELFPAY ==
[2023-05-02 15:10] LABS: Prothrombin Time Whole Bld POC 39.8 sec (11.1-13.5); ~PT, ~INR - Anti Coag Clinic 3.3 (0.9-1.1)
--- NOTE | 2023-05-02 15:22 | MHC.OFFVISCO ---
Intake Intake Visit Reasons: Anticoagulation Allergies rituximab [From Rituxan] Allergy (Severe, Verified 05/02/23 15:02) Anaphylaxis cephalexin [From Keflex] Allergy (Unknown, Verified 05/02/23 15:02) RED+ITCHY,RASH Cephalosporins [CEPHALOSPORINS] Allergy (Unknown, Verified 05/02/23 15:02) RED+ITCHY Sulfa (Sulfonamide Antibiotics) [SULFA(SULFONAMIDE ANTIBIOTICS)] Allergy (Unknown, Verified 05/02/23 15:02) RED+ITCHY retuxin Adverse Reaction (Severe, Uncoded 05/02/23 15:02) Abdominal Pain Medication List - Last Reconciled 05/02/23 by Jessica Leary RN atorvastatin 20 mg PO BEDTIME 30 days cholecalciferol (vitamin D3) 100 mcg (2 x 50 mcg (2,000 unit)) PO DAILY 30 days clobetasol 0.05% 1 appl topical DAILY erythromycin 1 appl ophthalmic (eye) DAILY 15 days fluocinonide 0.05% appl topical gabapentin 200 mg (2 x 100 mg) PO DAILY 30 days levothyroxine 100 mcg PO DAILY 90 days loratadine 10 mg PO DAILY 14 days magnesium oxide 250 mg PO BID prednisone 10 mg PO DAILY warfarin 5 mg See Protocol PO DAILY Nursing Note INR 3.3 out of therapeutic range- LUPUS CAN RUN PSUEDO ELEVATED INR VALUES Medications and supplements reviewed Patient status: GOING TO GO TO [facility] FOR 2ND RENAL OPINION - ENC HER TO GO THERE ALSO FOR HER RHUEMATOLOGY BECAUSE THEY ARE RELATED AND HER MDS KEEP CHANGING, HER [facility] APPT IS END OF MAY Medications or supplements: NO CHANGE Diet: GOOD Denies any signs and symptoms of bleeding or clotting or unusual bruising Bleeding, bruising, clotting discussed Nutritional guidance given: COOKED GREENS LOWER INR MORE Dose: KEEP SAME 5MG X 2 DAYS/ 2.5MG X 5 DAYS F/U INR Date : 3 WEEKS 05/23/23?? Patient verbalizing understanding of instructions given. Anti-Coag Initial Assessment Social Hx Patient Tobacco Use Status: Former Tobacco user Quit Date: 03/03/22 alcohol intake: former Alcohol intake frequency: does not drink Coding Level of Care Code Est Patient Level 1 Diagnoses Current use of anticoagulant therapy Z79.01 Assessment & Plan Assessment & Plan (1) Current use of anticoagulant therapy: Code(s): Z79.01 - residential (current) use of anticoagulants Category: Medical
== END 2023-05-02 15:27 | disposition home or self-care (01) ==
LOC: HO.ACS 15:02
PROVIDERS: PCP Internal Medicine; Visit Provider Internal Medicine
DX: Z79.01 Long term (current) use of anticoagulants (principal)

== ENCOUNTER → 2023-05-02 15:02 | Outpatient (BNVA) | payer OTHER, MEDICAID, SELFPAY | PROVIDERS: PCP Internal Medicine; Visit Provider Internal Medicine | DX: I26.99 Other pulmonary embolism without acute cor pulmonale (principal); Z51.81 Encounter for therapeutic drug level monitoring; Z79.01 Long term (current) use of anticoagulants | CPT/HCPCS: 85610; 99211 ==

== ENCOUNTER 2023-05-23 15:01 | Outpatient (AMB) | payer OTHER, MEDICAID, SELFPAY ==
[2023-05-23 15:15] LABS: Prothrombin Time Whole Bld POC 41.9 sec (11.1-13.5); ~PT, ~INR - Anti Coag Clinic 3.5 (0.9-1.1)
--- NOTE | 2023-05-23 15:43 | MHC.OFFVISCO ---
Intake Intake Visit Reasons: Anticoagulation Allergies rituximab [From Rituxan] Allergy (Severe, Verified 05/23/23 15:08) Anaphylaxis cephalexin [From Keflex] Allergy (Unknown, Verified 05/23/23 15:08) RED+ITCHY,RASH Cephalosporins [CEPHALOSPORINS] Allergy (Unknown, Verified 05/23/23 15:08) RED+ITCHY Sulfa (Sulfonamide Antibiotics) [SULFA(SULFONAMIDE ANTIBIOTICS)] Allergy (Unknown, Verified 05/23/23 15:08) RED+ITCHY retuxin Adverse Reaction (Severe, Uncoded 05/02/23 15:02) Abdominal Pain Medication List - Last Reconciled 05/23/23 by Stephanie Tran RN atorvastatin 20 mg PO BEDTIME 30 days cholecalciferol (vitamin D3) 100 mcg (2 x 50 mcg (2,000 unit)) PO DAILY 30 days clobetasol 0.05% 1 appl topical DAILY erythromycin 1 appl ophthalmic (eye) DAILY 15 days fluocinonide 0.05% appl topical gabapentin 200 mg (2 x 100 mg) PO DAILY 30 days levothyroxine 100 mcg PO DAILY 90 days loratadine 10 mg PO DAILY 14 days magnesium oxide 250 mg PO BID prednisone 10 mg PO DAILY warfarin 5 mg See Protocol PO DAILY Nursing Note NO CP,SOB,DIET/MED CHANGES,FALLS OR SX OF BLEEDING.. HOLDWARFARIN TOMORROW(TOOK 2.5MGM TODAY) THEN RESUME USUAL DOSE AND FOLLOW-UP IN 2 WEEKS. PT.HAS APPT.AT [facility] ON 06/05 WITH RENAL DEPT. GOOD UNDERSTANDING OF DOSING INSTR. Anti-Coag Initial Assessment Social Hx Patient Tobacco Use Status: Former Tobacco user Quit Date: 03/03/22 alcohol intake: former Alcohol intake frequency: does not drink Coding Level of Care Code Est Patient Level 1 Diagnoses Current use of anticoagulant therapy Z79.01 Assessment & Plan Assessment & Plan (1) Current use of anticoagulant therapy: Code(s): Z79.01 - group home (current) use of anticoagulants Category: Medical
== END 2023-05-23 15:51 | disposition home or self-care (01) ==
LOC: HO.ACS 15:01
PROVIDERS: PCP Internal Medicine; Visit Provider Internal Medicine
DX: Z79.01 Long term (current) use of anticoagulants (principal)

== ENCOUNTER → 2023-05-23 15:01 | Outpatient (BNVA) | payer OTHER, MEDICAID, SELFPAY | PROVIDERS: PCP Internal Medicine; Visit Provider Internal Medicine | DX: I26.99 Other pulmonary embolism without acute cor pulmonale (principal); Z51.81 Encounter for therapeutic drug level monitoring; Z79.01 Long term (current) use of anticoagulants | CPT/HCPCS: 85610; 99211 ==

== ENCOUNTER 2023-06-06 15:24 | Outpatient (AMB) | payer OTHER, MEDICAID, SELFPAY ==
[2023-06-06 15:32] LABS: Prothrombin Time Whole Bld POC 26.1 sec (11.1-13.5); ~PT, ~INR - Anti Coag Clinic 2.2 (0.9-1.1)
--- NOTE | 2023-06-06 15:44 | MHC.OFFVISCO ---
Intake Intake Visit Reasons: Anticoagulation Allergies rituximab [From Rituxan] Allergy (Severe, Verified 06/06/23 15:26) Anaphylaxis cephalexin [From Keflex] Allergy (Unknown, Verified 06/06/23 15:26) RED+ITCHY,RASH Cephalosporins [CEPHALOSPORINS] Allergy (Unknown, Verified 06/06/23 15:26) RED+ITCHY Sulfa (Sulfonamide Antibiotics) [SULFA(SULFONAMIDE ANTIBIOTICS)] Allergy (Unknown, Verified 06/06/23 15:26) RED+ITCHY retuxin Adverse Reaction (Severe, Uncoded 05/02/23 15:02) Abdominal Pain Medication List - Last Reconciled 06/06/23 by Stephanie Tran RN atorvastatin 20 mg PO BEDTIME 30 days cholecalciferol (vitamin D3) 100 mcg (2 x 50 mcg (2,000 unit)) PO DAILY 30 days clobetasol 0.05% 1 appl topical DAILY erythromycin 1 appl ophthalmic (eye) DAILY 15 days fluocinonide 0.05% appl topical gabapentin 200 mg (2 x 100 mg) PO DAILY 30 days levothyroxine 100 mcg PO DAILY 90 days loratadine 10 mg PO DAILY 14 days magnesium oxide 250 mg PO BID prednisone 10 mg PO DAILY warfarin 5 mg See Protocol PO DAILY Nursing Note NO CP,SOB,DIET/MED CHANGES,FALLS OR SX OF BLEEDING. PT.SAW KIDNEY SPECIALIST [place] Y[place]ERDAY. CONTINUE PRESENT WARFARIN DOSE AND FOLLOW-UP IN 3 WEEKS. GOOD UNBDERSTANDING OF DOSING INSTR. 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
== END 2023-06-06 15:48 | disposition home or self-care (01) ==
LOC: HO.ACS 15:24
PROVIDERS: PCP Internal Medicine; Visit Provider Internal Medicine
DX: Z79.01 Long term (current) use of anticoagulants (principal)

== ENCOUNTER → 2023-06-06 15:24 | Outpatient (BNVA) | payer OTHER, MEDICAID, SELFPAY | PROVIDERS: PCP Internal Medicine; Visit Provider Internal Medicine | DX: I26.99 Other pulmonary embolism without acute cor pulmonale (principal); Z51.81 Encounter for therapeutic drug level monitoring; Z79.01 Long term (current) use of anticoagulants | CPT/HCPCS: 85610; 99211 ==

== ENCOUNTER 2023-06-27 14:55 | Outpatient (AMB) | payer OTHER, MEDICAID, SELFPAY ==
[2023-06-27 15:01] LABS: Prothrombin Time Whole Bld POC 30.2 sec (11.1-13.5); ~PT, ~INR - Anti Coag Clinic 2.5 (0.9-1.1)
--- NOTE | 2023-06-27 15:14 | MHC.OFFVISCO ---
Intake Intake Visit Reasons: Anticoagulation Allergies rituximab [From Rituxan] Allergy (Severe, Verified 06/27/23 14:56) Anaphylaxis cephalexin [From Keflex] Allergy (Unknown, Verified 06/27/23 14:56) RED+ITCHY,RASH Cephalosporins [CEPHALOSPORINS] Allergy (Unknown, Verified 06/27/23 14:56) RED+ITCHY Sulfa (Sulfonamide Antibiotics) [SULFA(SULFONAMIDE ANTIBIOTICS)] Allergy (Unknown, Verified 06/27/23 14:56) RED+ITCHY retuxin Adverse Reaction (Severe, Uncoded 06/27/23 14:56) Abdominal Pain Medication List - Last Reconciled 06/27/23 by Jessica Leary RN atorvastatin 20 mg PO BEDTIME 30 days cholecalciferol (vitamin D3) 100 mcg (2 x 50 mcg (2,000 unit)) PO DAILY 30 days clobetasol 0.05% 1 appl topical DAILY erythromycin 1 appl ophthalmic (eye) DAILY 15 days fluocinonide 0.05% appl topical gabapentin 200 mg (2 x 100 mg) PO DAILY 30 days levothyroxine 100 mcg PO DAILY 90 days loratadine 10 mg PO DAILY 14 days magnesium oxide 250 mg PO BID prednisone 10 mg PO DAILY warfarin 5 mg See Protocol PO DAILY Nursing Note Low Potassium Food list printed for the pt from [facility], because she states she does not know what else to eat, due to her low protein diet, she states she is hungry all the time, enc to talk with md also. she is traveling to [place] in July, enc her to be safe and make sure to have phone and extra chargers has renal f/u appt next year with [facility] - she states she likes the new MD INR: 2.5 in therapeutic range Medications and supplements reviewed No changes in health, diet, medications, or supplements, Denies any signs and symptoms of bleeding or bruising or clotting. Bleeding, bruising, clotting discussed Nutritional guidance given see above Dose: 5mg x 2 days/ 2.5mg x 5 days F/U INR: after she returns from [place] 07/23/23 Patient verbalizes understanding of instructions given Anti-Coag Initial Assessment Social Hx Patient Tobacco Use Status: Former Tobacco user Quit Date: 03/03/22 alcohol intake: former Alcohol intake frequency: does not drink Coding Level of Care Code Est Patient Level 1
== END 2023-06-27 15:18 | disposition home or self-care (01) ==
LOC: HO.ACS 14:55
PROVIDERS: PCP Internal Medicine; Visit Provider Internal Medicine
DX: Z79.01 Long term (current) use of anticoagulants (principal)

== ENCOUNTER → 2023-06-27 14:55 | Outpatient (BNVA) | payer OTHER, MEDICAID, SELFPAY | PROVIDERS: PCP Internal Medicine; Visit Provider Internal Medicine | DX: I26.99 Other pulmonary embolism without acute cor pulmonale (principal); Z51.81 Encounter for therapeutic drug level monitoring; Z79.01 Long term (current) use of anticoagulants | CPT/HCPCS: 85610; 99211 ==

== ENCOUNTER 2023-07-24 09:07 | Outpatient (AMB) | payer OTHER, MEDICAID, SELFPAY ==
--- NOTE | 2023-07-24 09:21 | MHC.OFFVISCO ---
Intake Intake Visit Reasons: Anticoagulation Allergies rituximab [From Rituxan] Allergy (Severe, Verified 07/24/23 09:18) Anaphylaxis cephalexin [From Keflex] Allergy (Unknown, Verified 07/24/23 09:18) RED+ITCHY,RASH Cephalosporins [CEPHALOSPORINS] Allergy (Unknown, Verified 07/24/23 09:18) RED+ITCHY Sulfa (Sulfonamide Antibiotics) [SULFA(SULFONAMIDE ANTIBIOTICS)] Allergy (Unknown, Verified 07/24/23 09:18) RED+ITCHY retuxin Adverse Reaction (Severe, Uncoded 07/24/23 09:18) Abdominal Pain Medication List - Last Reconciled 07/24/23 by Shana Allen RN atorvastatin 20 mg PO BEDTIME 30 days cholecalciferol (vitamin D3) 100 mcg (2 x 50 mcg (2,000 unit)) PO DAILY 30 days clobetasol 0.05% 1 appl topical DAILY erythromycin 1 appl ophthalmic (eye) DAILY 15 days fluocinonide 0.05% appl topical gabapentin 200 mg (2 x 100 mg) PO DAILY 30 days levothyroxine 100 mcg PO DAILY 90 days loratadine 10 mg PO DAILY 14 days magnesium oxide 250 mg PO BID prednisone 10 mg PO DAILY warfarin 5 mg See Protocol PO DAILY Nursing Note INR 1.6-?? out of therapeutic range of 2-3 denies missed dose- unsure due to time change in [place] Medications and supplements reviewed Patient status: pt returned from [place] Medications or supplements: no changes Diet: same Denies any signs and symptoms of bleeding or clotting or unusual bruising Bleeding, bruising, clotting discussed - aware at risk for clotting Nutritional guidance given: no greens for 2-3 days, eat reds to raise Dose: 5mg today then cont 5mg x 2, 2.5mg x 5 F/U INR Date : 1 week? Patient verbalizing understanding of instructions given. Anti-Coag Initial Assessment Social Hx Patient Tobacco Use Status: Former Tobacco user Quit Date: 03/03/22 alcohol intake: former Alcohol intake frequency: does not drink Coding Level of Care Code Est Patient Level 1 Diagnoses Current use of anticoagulant therapy Z79.01 Results AMB INR Fingerstick AMB INR Fingerstick 1.6 Last Edit by Shana Allen RN on 07/24/23 09:24 Assessment & Plan Assessment & Plan (1) Current use of anticoagulant therapy: Code(s): Z79.01 - skilled nursing (current) use of anticoagulants Category: Medical
[2023-07-24 09:31] LABS: Prothrombin Time Whole Bld POC 19.1 sec (11.1-13.5); ~PT, ~INR - Anti Coag Clinic 1.6 (0.9-1.1)
== END 2023-07-24 09:31 | disposition home or self-care (01) ==
LOC: HO.ACS 09:07
PROVIDERS: PCP Internal Medicine; Visit Provider Internal Medicine
DX: Z79.01 Long term (current) use of anticoagulants (principal)

== ENCOUNTER → 2023-07-24 09:07 | Outpatient (BNVA) | payer OTHER, MEDICAID, SELFPAY | PROVIDERS: PCP Internal Medicine; Visit Provider Internal Medicine | DX: I26.99 Other pulmonary embolism without acute cor pulmonale (principal); Z51.81 Encounter for therapeutic drug level monitoring; Z79.01 Long term (current) use of anticoagulants | CPT/HCPCS: 85610; 99211 ==

== ENCOUNTER 2023-08-01 15:00 | Outpatient (AMB) | payer OTHER, MEDICAID, SELFPAY ==
--- NOTE | 2023-08-01 15:07 | MHC.OFFVISCO ---
Intake Intake Visit Reasons: Anticoagulation Allergies rituximab [From Rituxan] Allergy (Severe, Verified 08/01/23 15:01) Anaphylaxis cephalexin [From Keflex] Allergy (Unknown, Verified 08/01/23 15:01) RED+ITCHY,RASH Cephalosporins [CEPHALOSPORINS] Allergy (Unknown, Verified 08/01/23 15:01) RED+ITCHY Sulfa (Sulfonamide Antibiotics) [SULFA(SULFONAMIDE ANTIBIOTICS)] Allergy (Unknown, Verified 08/01/23 15:01) RED+ITCHY retuxin Adverse Reaction (Severe, Uncoded 08/01/23 15:01) Abdominal Pain Medication List - Last Reconciled 08/01/23 by Shana Allen RN atorvastatin 20 mg PO BEDTIME 30 days cholecalciferol (vitamin D3) 100 mcg (2 x 50 mcg (2,000 unit)) PO DAILY 30 days clobetasol 0.05% 1 appl topical DAILY erythromycin 1 appl ophthalmic (eye) DAILY 15 days fluocinonide 0.05% appl topical gabapentin 200 mg (2 x 100 mg) PO DAILY 30 days levothyroxine 100 mcg PO DAILY 90 days loratadine 10 mg PO DAILY 14 days magnesium oxide 250 mg PO BID prednisone 10 mg PO DAILY warfarin 5 mg See Protocol PO DAILY Nursing Note INR 1.6-?? out of therapeutic range of 2-3 prev inr 1.6- return from vacation [place] Medications and supplements reviewed Patient status: pt denies missed dose, unsure why inr is low Medications or supplements: pt states not taking atorvastatin- will verify with pcp Diet: same Denies any signs and symptoms of bleeding or clotting or unusual bruising Bleeding, bruising, clotting discussed Nutritional guidance given: no greens for 2 days, eat reds to raise Dose: 7.5mg x 1, 5mg x 1 then cont reg- 5mg x 2, 2.5mg x 5 F/U INR Date : 1 week?? Patient verbalizing understanding of instructions given. Anti-Coag Initial Assessment Social Hx Patient Tobacco Use Status: Former Tobacco user Quit Date: 03/03/22 alcohol intake: former Alcohol intake frequency: does not drink Coding Level of Care Code Est Patient Level 1 Diagnoses Current use of anticoagulant therapy Z79.01 Results AMB INR Fingerstick AMB INR Fingerstick 1.6 Last Edit by Shana Allen RN on 08/01/23 15:10 AMB INR Fingerstick AMB INR Fingerstick 1.6 Last Edit by Shana Allen RN on 08/01/23 15:11 AMB INR Fingerstick AMB INR Fingerstick 1.6 Last Edit by Shana Allen RN on 08/01/23 15:12 AMB INR Fingerstick AMB INR Fingerstick 1.6 Last Edit by Shana Allen RN on 08/01/23 15:12 Assessment & Plan Assessment & Plan (1) Current use of anticoagulant therapy: Code(s): 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
[2023-08-01 15:40] LABS: Prothrombin Time Whole Bld POC 19.6 sec (11.1-13.5); ~PT, ~INR - Anti Coag Clinic 1.6 (0.9-1.1)
== END 2023-08-01 15:20 | disposition home or self-care (01) ==
LOC: HO.ACS 15:00
PROVIDERS: PCP Physician Assistant; Visit Provider Internal Medicine
DX: Z79.01 Long term (current) use of anticoagulants (principal)

== ENCOUNTER → 2023-08-01 15:00 | Outpatient (BNVA) | payer OTHER, MEDICAID, SELFPAY | PROVIDERS: PCP Physician Assistant; Visit Provider Internal Medicine | DX: I26.99 Other pulmonary embolism without acute cor pulmonale (principal); Z51.81 Encounter for therapeutic drug level monitoring; Z79.01 Long term (current) use of anticoagulants | CPT/HCPCS: 85610; 99211 ==

== ENCOUNTER 2023-08-02 14:49 | Outpatient (AMB) | payer OTHER, MEDICAID, SELFPAY ==
--- NOTE | 2023-08-02 14:51 | A.OFFVIS_ITS ---
Intake Vital Signs 08/02/23 14:54 Height 5 ft Weight 117 lb 15.157 oz BMI 23.0 BP 100/78 Blood Pressure Location Lt brachial Position Sitting Pulse 70 Pulse Source Pulse Oximeter Temp 97.1 F Temp Source Skin Pulse Oximetry (%) 98 Oxygen Delivery Method Room Air Intake Visit Reasons: SLE Intake Note: New pt presents today for SLE consult. Previously seen by our [facility] providers. Currently on Prednisone 10 mg qd. Domestic Cleaner Required: No Accompanied by: Self / Same As Patient Allergies rituximab [From Rituxan] Allergy (Severe, Verified 08/02/23 14:51) Anaphylaxis cephalexin [From Keflex] Allergy (Unknown, Verified 08/02/23 14:51) RED+ITCHY,RASH Cephalosporins [CEPHALOSPORINS] Allergy (Unknown, Verified 08/02/23 14:51) RED+ITCHY Sulfa (Sulfonamide Antibiotics) [SULFA(SULFONAMIDE ANTIBIOTICS)] Allergy (Unknown, Verified 08/02/23 14:51) RED+ITCHY retuxin Adverse Reaction (Severe, Uncoded 08/02/23 14:51) Abdominal Pain Medication List - Last Reconciled 08/02/23 by Federico Stallworth MD atorvastatin 20 mg PO BEDTIME 30 days cholecalciferol (vitamin D3) 100 mcg (2 x 50 mcg (2,000 unit)) PO DAILY 30 days clobetasol 0.05% 1 appl topical DAILY erythromycin 1 appl ophthalmic (eye) DAILY 15 days fluocinonide 0.05% appl topical gabapentin 200 mg (2 x 100 mg) PO DAILY 30 days levothyroxine 100 mcg PO DAILY 90 days loratadine 10 mg PO DAILY 14 days magnesium oxide 250 mg PO BID prednisone 10 mg PO DAILY warfarin 5 mg See Protocol PO DAILY HPI HPI Comments History of Present Illness Details This is a 58-year-old female with SLE who presents as a new patient. Please see her SLE history below. More recently patient's creatinine has been increasing last year and she had a kidney biopsy 04/2022 which showed a mixture of class 3 and class 5 nephritis. She received 1 dose of rituximab in 08/2022, she could not tolerate the 2nd dose due to an allergic reaction. Her creatinine and proteinuria are improved.. Currently patient is on prednisone 10 mg daily and feels well. She has no complaints today. She denies any rashes, joint pains, fevers or hair loss. She states that she has lost about 30 lb over the last year due to her worsening kidney function. She is afraid of getting started on dialysis She states that she has not had any other thromboembolic event since her diagnosis in 2002. She has been on warfarin chronically. She denies any family history of an autoimmune rheumatic disease She mentions that in the past she had a side effect to hydroxychloroquine. She believes she developed tinnitus. Per Dr. Andino in 2019: Patient was diagnosed with lupus in 2002 when she was admitted in the ICU with chest pain, leg swelling, fever,rash and shortness of breath. 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 She also had alopecia, joint pains, skin eruptions. She has questionable Raynaud, occasional oral ulcers. She recieved cytoxan in 2005, was tried on cyclosporin which was discontinued sec to epigastric pain.She was started on cellcept in 2008 sec to ongoing proteinuria. Inspite of increasing it to 3gms she continued to have ongoing proteinuria. She has recieved 2 doses of Rituximab 500mg , 2 weeks apart in 2010. Since February 2012 she was started on Benlysta for her skin symptoms with improvement. She had been getting it until she lost her insurance late last year. She feels the Benlysta really helped her with the rash. Benlysta was stopped . They she was out on Acthar gel but it was stopped because of insurance coverage. This was in 2017, she took it for a year but not a complete year. It never was consistent. ?She is currently taking plaquenil, enalapril, and one more (she will call to give us the name) and coumadin. She is using clobetasol for her rash and it is helping. ?Bone density: DIAGNOSIS: Normal bone density based on the lowest T-score value of?-0.9 in the femoral neck applying World Health Organization criteria.?Hands radiographs: Normal right and left hand studies without evidence of osteoarthritis or erosive arthritides. [facility] Medical History Prediabetes SLE glomerulonephritis syndrome History of pulmonary embolism Vitamin D deficiency Hypertriglyceridemia Hypothyroidism Surgical History Hx of tubal ligation Family History Father Family history unknown Mother Hypertension Diabetes Deep vein thrombosis CVA (cerebral vascular accident) Brother CVA (cerebral vascular accident), Onset Age: 48 Brother CVA (cerebral vascular accident), Onset Age: 38 Social History Household Members: None Housing: House Alcohol intake: former Patient Tobacco Use Status: Former Tobacco user Quit Date: 03/03/22 e-Cigarette/Vaping Use: Never Used service: No Current occupational status: employed 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 Cognitive needs: No Hearing needs: No Vision needs: No Female Reproductive History Menstrual Total pregnancies: 3 Number of Living Children: 2 Ab spontaneous: 1 Review of Systems Const Reports weight loss (Intentional) Eyes Reports blurry vision, Reports dry eyes, Reports itchy eyes and Reports loss of vision ENT Reports tinnitus Card Denies dyspnea Resp Denies dyspnea GI Reports heartburn Musc Denies arthralgias, Denies joint swelling and Denies stiffness Neuro Reports loss of vision Psych Reports abnormal sleep pattern and Reports anxiety Aller/Immun Reports itchy eyes Physical Exam Vital Signs: Last Vital Signs Temp 97.1 F 08/02/23 14:54 Pulse 70 08/02/23 14:54 BP 100/78 08/02/23 14:54 Pulse Ox 98 08/02/23 14:54 Oxygen Delivery Method Room Air 08/02/23 14:54 BMI result Body Mass Index 23.0 Const General: cooperative, healthy appearing and comfortable Nutritional Appearance: average body habitus Orientation/consciousness: patient oriented x3 Limitations: no limitations HEENT Head: Yes normocephalic and Yes atraumatic Mouth: moist mucous membranes Resp Effort & Inspection: normal respiratory effort and able to speak in complete sentences Auscultation: clear to auscultation bilaterally Cardio Rate: regular rate Rhythm: regular rhythm Skin General skin exam: no rashes or lesions noted Neuro General: patient oriented x3 Extrem Other: No active synovitis Normal nailfold capillaroscopy Results Reviewed Results Reviewed: Right kidney biopsy 04/2022: [facility] Dept. of Pathology (their number [id number]): - Focal lupus nephritis and membranous lupus nephritis (class III + V, pending EM studies). - Focal endocapillary proliferation (2 glomeruli, 7%) and a singular cellular crescent (3%). - Global sclerosis of 16 of 29 glomeruli (55%) with severe interstitial fibrosis and tubular atrophy involving 60-70% of the cortical area. - Electron microscopy has been initiated to evaluate the extent and location of electron dense deposits,[facility] Dept. of Pathology (their number [id number]): - Focal lupus nephritis and membranous lupus nephritis (class III + V, pending EM studies). - Focal endocapillary proliferation (2 glomeruli, 7%) and a singular cellular crescent (3%). - Global sclerosis of 16 of 29 glomeruli (55%) with severe interstitial fibrosis and tubular atrophy involving 60-70% of the cortical area. - Electron microscopy has been initiated to evaluate the extent and location of electron dense deposits, which could potentially alter classification, to be reported in an addendum. - Modified NIH lupus nephritis activity index: 7. Chronicity index: 9 Note: The findings support combined membranous (class V) and focal lupus nephritis (class III), pending electron microscopy to confirm the extent and location of electron dense depositswhich could potentially alter classification, to be reported in an addendum. - Modified NIH lupus nephritis activity index: 7. Chronicity index: 9 Note: The findings support combined membranous (class V) and focal lupus nephritis (class III), pending electron microscopy to confirm the extent and location of electron dense deposits Labs 06/2023 C3 97 (83-193) C4 22 (15-57) BT to glycoprotein IgG/beta 2 glycoprotein IgA/Be2 glycoprotein IgM/phosphatidylserine IgG/phosphatidylserine IgM/cardiolipin IgA/cardiolipin IgG/cardiolipin IgM all negative Creatinine 2.61 with GFR 21 Sodium/potassium/calcium/phosphate all normal PTH 205 (16-77) CBC unremarkable except for mild anemia hemoglobin 11.4 (>11.7) Platelets 310 WBC 5.9 Total iron 36 (45-160) TIBC 270 250-450 Iron saturation 13 (16-45%) Ferritin 75 nl Vitamin-D 22 low TYRON IFA negative DsDNA 2 (-ve) Albumin to creatinine ratio 2286 (<30) Protein to creatinine ratio 4.6 grams Assessment & Plan Assessment & Plan (1) SLE glomerulonephritis syndrome: Comment: onset [id number] Fevers, rashes, pulmonary embolism, alopecia, arthralgias, oral ulcers class 3 and class 5 nephritis, low C3, low C4 Treated with Cytoxan and prednisone Coumadin throughout Cyclosporin 2005 DC due to epigastric pain CellCept 2008 uptitrated to 3 g daily, developed worsening proteinuria Rituximab 2 doses, 2 weeks apart 2010 Believes that she took hydroxychloroquine and discontinued it due to tinnitus ?! Benlysta 02/2012 was helpful especially for skin lesions. Discontinued due to loss of insurance Acthar gel 2016 took it for about a year inconsistently Repeat kidney biopsy 04/2022 showed class 3 and 5 nephritis. Received 1 dose of rituximab 08/2022 with some improvement Code(s): M32.14 - Glomerular disease in systemic lupus erythematosus Plan: This is a 58-year-old female who presents for evaluation of SLE. She has not been evaluated by a guest services associate for a number of years. She has mostly been followed by her production leader. Last year patient's creatinine and proteinuria were worsening. Kidney biopsy showed class 3 and 5 nephritis. The decision was made to give rituximab. Received 1 dose of rituximab and could not tolerate the 2nd dose due to allergic reaction. Her creatinine and proteinuria did improve however. I do not see any signs of active lupus on exam today. SLE activity ma rkers from last month were unremarkable Over the years patient has been on multiple medications for SLE. Patient was recently evaluated by production leader Dr. Altman at [facility]. I will request records. She is currently on prednisone 10 mg daily and she can continue with that. Benlysta and mycophenolate mofetil can be considered. Follow-up in 1 month Plan I spent 65 minutes reviewing patient's chart, including labs from [facility] at [place],old chart from old electronic medical record, evaluating patient, ordering diagnostic workup, counseling patient and documenting in the chart Orders: Orders Urine Cytology Today T45.1X5A - Adverse effect of antineoplastic and immunosuppressive drugs, initial encounter Coding Level of Care Code Est Pt Level 5 (32738) Diagnoses SLE glomerulonephritis syndrome M32.14
[2023-08-02 14:54] VITALS: BP 100/78; PULSE 70; TEMP 36.2; O2SAT 98; BMI 23.0
== END 2023-08-02 15:37 | disposition home or self-care (01) ==
PROVIDERS: PCP Physician Assistant; Visit Provider Student in an Organized Health Care Education/Training Program
DX: M32.14 Glomerular disease in systemic lupus erythematosus (principal)
CPT/HCPCS: 99215

== ENCOUNTER → 2023-08-02 14:49 | Outpatient (BNVA) | payer OTHER, MEDICAID, SELFPAY | PROVIDERS: PCP Physician Assistant; Visit Provider Student in an Organized Health Care Education/Training Program ==

== ENCOUNTER 2023-08-07 11:00 | Outpatient (REF) | payer OTHER, MEDICAID, SELFPAY ==
[2023-08-07 12:31] LABS: Anion Gap 11 (12-20); Blood Urea Nitrogen 47 mg/dL (9-16); Calcium 10.1 mg/dL (8.4-10.2); Carbon Dioxide 19 mmol/L (22-29); Chloride 116 mmol/L (96-108); Estimated Glomerular Filt Rate 20; Potassium 4.7 mmol/L (3.3-5.1); Sodium 141 mmol/L (135-145)
== END 2023-08-07 11:01 | disposition home or self-care (01) ==
LOC: HO.LAB 11:00
PROVIDERS: Visit Provider Internal Medicine Nephrology
DX: I26.99 Other pulmonary embolism without acute cor pulmonale (principal); N18.4 Chronic kidney disease, stage 4 (severe); Z51.81 Encounter for therapeutic drug level monitoring; Z79.01 Long term (current) use of anticoagulants
CPT/HCPCS: 36415; 80051; 82310; 82565; 84520; 85610; 99211

== ENCOUNTER 2023-08-07 11:05 | Outpatient (AMB) | payer OTHER, MEDICAID, SELFPAY ==
--- NOTE | 2023-08-07 11:31 | MHC.OFFVISCO ---
Intake Intake Visit Reasons: Anticoagulation Allergies rituximab [From Rituxan] Allergy (Severe, Verified 08/07/23 11:26) Anaphylaxis cephalexin [From Keflex] Allergy (Unknown, Verified 08/07/23 11:26) RED+ITCHY,RASH Cephalosporins [CEPHALOSPORINS] Allergy (Unknown, Verified 08/07/23 11:26) RED+ITCHY Sulfa (Sulfonamide Antibiotics) [SULFA(SULFONAMIDE ANTIBIOTICS)] Allergy (Unknown, Verified 08/07/23 11:26) RED+ITCHY retuxin Adverse Reaction (Severe, Uncoded 08/07/23 11:26) Abdominal Pain Medication List - Last Reconciled 08/07/23 by Shana Allen, RN atorvastatin 20 mg PO BEDTIME 30 days cholecalciferol (vitamin D3) 100 mcg (2 x 50 mcg (2,000 unit)) PO DAILY 30 days clobetasol 0.05% 1 appl topical DAILY erythromycin 1 appl ophthalmic (eye) DAILY 15 days fluocinonide 0.05% appl topical gabapentin 200 mg (2 x 100 mg) PO DAILY 30 days levothyroxine 100 mcg PO DAILY 90 days loratadine 10 mg PO DAILY 14 days magnesium oxide 250 mg PO BID prednisone 10 mg PO DAILY warfarin 5 mg See Protocol PO DAILY Nursing Note INR: 2.2- in therapeutic range of 2-3 Medications and supplements reviewed No changes in health, diet, medications, or supplements, Denies any signs and symptoms of bleeding or bruising or clotting. Bleeding, bruising, clotting discussed Nutritional guidance given Dose: 5mg x 2, 2.5mg x 5 F/U INR: 1 week Patient verbalizes understanding of instructions given pt had appt in [place] today regarding kidneys, also had labs today Anti-Coag Initial Assessment Social Hx Patient Tobacco Use Status: Former Tobacco user Quit Date: 03/03/22 alcohol intake: former Alcohol intake frequency: does not drink Coding Level of Care Code Est Patient Level 1 Diagnoses Current use of anticoagulant therapy Z79.01 Results AMB INR Fingerstick AMB INR Fingerstick 2.2 Last Edit by Shana Allen RN on 08/07/23 11:32 Assessment & Plan Assessment & Plan (1) Current use of anticoagulant therapy: Code(s): Z79.01 - halfway (current) use of anticoagulants Category: Medical
[2023-08-07 11:32] LABS: ~PT, ~INR - Anti Coag Clinic 2.2 (0.9-1.1)
== END 2023-08-07 11:37 | disposition home or self-care (01) ==
LOC: HO.ACS 11:05
PROVIDERS: PCP Physician Assistant; Visit Provider Internal Medicine
DX: Z79.01 Long term (current) use of anticoagulants (principal)

== ENCOUNTER 2023-08-13 15:46 | Outpatient (REF) | payer OTHER, MEDICAID, SELFPAY ==
[2023-08-13 17:10] LABS: Urine Cytology See Pathology rpt
== END 2023-08-13 15:47 | disposition home or self-care (01) ==
LOC: HO.LAB 15:46
PROVIDERS: Student in an Organized Health Care Education/Training Program; Visit Provider Internal Medicine
DX: Z79.899 Other long term (current) drug therapy (principal); T45.1X5A Adverse effect of antineoplastic and immunosuppressive drugs, initial encounter
CPT/HCPCS: 88112

== ENCOUNTER 2023-08-14 15:13 | Outpatient (AMB) | payer OTHER, MEDICAID, SELFPAY ==
[2023-08-14 15:35] VITALS: BP 126/82; PULSE 68; O2SAT 99; BMI 23.6
--- NOTE | 2023-08-14 15:35 | A.OFFPC_ITS ---
Vital Signs 08/14/23 15:35 Height 5 ft Weight 121 lb BMI 23.6 BP 126/82 Blood Pressure Location Lt brachial Position Sitting Pulse 68 Pulse Source Pulse Oximeter Pulse Oximetry (%) 99 Oxygen Delivery Method Room Air Intake Visit Reasons: f/u SLE/ per triglyceride Furnace Installer Required: No Marketing Research Intern: Not Required per policy Accompanied by: Self / Same As Patient Allergies rituximab [From Rituxan] Allergy (Severe, Verified 08/14/23 16:20) Anaphylaxis cephalexin [From Keflex] Allergy (Unknown, Verified 08/14/23 16:20) RED+ITCHY,RASH Cephalosporins [CEPHALOSPORINS] Allergy (Unknown, Verified 08/14/23 16:20) RED+ITCHY Sulfa (Sulfonamide Antibiotics) [SULFA(SULFONAMIDE ANTIBIOTICS)] Allergy (Unknown, Verified 08/14/23 16:20) RED+ITCHY retuxin Adverse Reaction (Severe, Uncoded 08/14/23 15:36) Abdominal Pain Medication List - Last Reconciled 08/14/23 by Franklin Sanchez PA-C atorvastatin 20 mg PO BEDTIME 30 days cholecalciferol (vitamin D3) 100 mcg (2 x 50 mcg (2,000 unit)) PO DAILY 30 days clobetasol 0.05% 1 appl topical DAILY erythromycin 1 appl ophthalmic (eye) DAILY 15 days fluocinonide 0.05% appl topical gabapentin 200 mg (2 x 100 mg) PO DAILY 30 days levothyroxine 100 mcg PO DAILY 90 days loratadine 10 mg PO DAILY 14 days magnesium oxide 250 mg PO BID prednisone 10 mg PO DAILY warfarin 5 mg See Protocol PO DAILY Tobacco use date assessed: 04/10/23 Dental Screening Dental Screen Date: 08/14/23 Did you have a dental visit in the last 12 months?: No Did you have a dental problem in the last 6 months where you did not have access to dental care?: No Was dental information given to patient?: Patient has dentist HPI f/u SLE/ per triglyceride HPI Details Patient is a 58-year-old female here today for a follow-up visit? Patient has a past medical history significant for SLE, hypothyroidism, hypertriglyceridemia, chronic anticoagulation use, former smoker. . 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 Most recent creatinine improved at 2.4 . Was seen seeing a dietition and would like to see a dietitian again.? Has been able to lose a significant amount weight due to lifestyle changes. Continues on anticoagulation without any overt signs of bleeding. Also followed by a electronic engraver and considering dialysis.? Has gotten 2nd opinion through electronic engraver and [place] though no medication was recommended. Again dialysis was considered.. Has trialed retuxin though had a terrible adverse reaction. ?? Has use magnesium supplementation in the past with good effect. At this point there is no further treatment that has been covered by insurance or patient has been able to tolerate for her glomerular nephritis. She has establish care with a director of counterintelligence here in [place] to help control her lupus likely causing the nephritis. ? .. Former smoker:? She reports she has quit smoking over the last month and a due to fears of worsening kidney function. .. Hypothyroidism:? Patient's thyroid has now normalized on levothyroxine 100 mcg .? Continues to follow Endocrinology as well ? Hypertriglyceridemia: Continues to have elevated triglycerides. Has been trying to customer service manager triglycerides with dietary modifications. Has upcoming of appointment with concessionist Laboratory Tests 12/09/22 08/07/23 08/07/23 07:31 11:18 11:32 PT/INR Fingerst Cl inic 2.2 Creatinine 2.43 H Estimated GFR 20 Triglycerides 349 [facility] Medical History Prediabetes SLE glomerulonephritis syndrome History of pulmonary embolism Vitamin D deficiency Hypertriglyceridemia Hypothyroidism Surgical History Hx of tubal ligation Family History Father Family history unknown Mother Hypertension Diabetes Deep vein thrombosis CVA (cerebral vascular accident) Brother CVA (cerebral vascular accident), Onset Age: 48 Brother CVA (cerebral vascular accident), Onset Age: 38 Social History Household Members: None Housing: House Alcohol intake: former Patient Tobacco Use Status: Former Tobacco user Quit Date: 03/03/22 e-Cigarette/Vaping Use: Never Used service: No Current occupational status: employed 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 1. Little interest or pleasure in doing things: not at all 2. Feeling down, depressed, or hopeless: not at all 3. Trouble falling or staying asleep, or sleeping too much: not at all 4. Feeling tired or having little energy: not at all 5. Poor appetite or overeating: not at all 6. Feeling bad about yourself - or that you are a failure or have let yourself or your family down: not at all 7. Trouble concentrating on things, such as reading the newspaper or watching television: not at all 8. Moving or speaking so slowly that other people could have noticed. Or the opposite - being so fidgety or restless that you have been moving around a lot more than usual: not at all 9. Thoughts that you would be better off or of hurting yourself in some way: not at all Total score: 0 Depression Screening Interpretation: Negative Depression Screening Done: Yes 84440 - PHQ-9 Billing: Yes Source: Developed by Drs. Gino Young, Seble Chahal, Dennis Zendejas and colleagues, with an educational clara from [employer]. Thrive Questionnaire Date Thrive assessed: 08/14/23 I am a: Patient What is your living situation today?: I have a steady place to live Within the past 12 months, did the food you bought not last and you didn't have the money to get more?: Never true Within the past 12 months, did you worry whether your food would run out before you got money to buy more?: Never true Do you have trouble paying for medicines?: No Do you have trouble getting transportation to medical appointments?: No Do you have trouble paying your heating and electricity bill?: No Do you have trouble taking care of your child, family member or friend?: No Do you have trouble with day-to-day activities such as bathing, preparing meals, shopping, managing finances, etc.?: No Are you currently unemployed and looking for a job?: No Are you interested in more education?: No Please select the resources that you would like help with: None AUDIT C Alcohol Use Questionnaire (AUDIT-C) 1. How often do you have a drink containing alcohol?: Never 3. How often do you have six or more drinks on one occasion?: Never Total Score: 0 CHE-7 AMB Questionnaire CHE-7 Date CHE - 7 assessed: 08/14/23 Feeling nervous, anxious, or on edge: 0 = Not at all Not being able to stop or control worryin = Not at all Worrying too much about different things: 0 = Not at all Trouble relaxin = Not at all Being so restless that it is hard to sit still: 0 = Not at all Becoming easily annoyed or irritable: 0 = Not at all Feeling afraid as if something awful might happen: 0 = Not at all Total CHE-7 score (0-4 normal; 5-9 mild; 10-14 moderate; 15-21 severe): 0 Source: Developed by Drs. Gino Young, Seble Chahal, Dennis Zendejas and colleagues, with an educational calra from [employer]. CHE-7 Assessment Billing CHE-7 Assessment Tool: CHE-7 Assessment 02633 Review of Systems Const Denies headache(s) Eyes Denies loss of vision ENT Denies vertigo, Denies dizziness, Denies headache(s) and Denies sore throat Card Denies chest pain, Denies leg edema and Denies lightheadedness Resp Denies cough, Denies hemoptysis and Denies wheezing GI Denies abdominal pain, Denies melena, Denies constipation, Denies diarrhea and Denies vomiting Denies urinary frequency, Denies dysuria and Denies urinary urgency Musc Denies arthralgias, Denies joint swelling, Denies numbness and Denies tingling Neuro Denies Abnormal speech present, Denies behavioral changes, Denies vertigo, Denies dizziness, Denies headache(s), Denies loss of vision, Denies memory loss, Denies numbness and Denies tingling Psych Denies anxiety, Denies behavioral changes, Denies depression, Denies memory loss and Denies panic attacks Davie/Lymph Denies easy bleeding and Denies easy bruising Aller/Immun Denies wheezing Physical exam (Primary Care) Vital Signs: Last Vital Signs Pulse 68 08/14/23 15:35 BP 126/82 08/14/23 15:35 Pulse Ox 99 08/14/23 15:35 Oxygen Delivery Method Room Air 08/14/23 15:35 BMI result Body Mass Index 23.6 Tobacco/Smoking Status: Tobacco use Status Tobacco use date assessed 04/10/23 08/14/23 15:37 Patient Tobacco Use Status Former Tobacco user 08/14/23 15:37 e-Cigarette/Vaping Use Never Used 08/14/23 15:37 PHQ-9: PHQ-9 Score PHQ-9: Total score 0 08/14/23 16:20 Depression Screening Interpretation: Negative Thrive Assessment: Date of Thrive Assessment Date Thrive assessed 08/14/23 08/14/23 15:37 Const General: healthy appearing, no acute distress, alert and awake Nutritional Appearance: well nourished Orientation/consciousness: oriented to person, oriented to place and oriented to time HENMT Ears: TM's normal bilaterally General nose exam: Normal nasal mucous membranes and turbinates present Eyes Conjunctivae: conjunctival abnormal (Subconjunctival Hemorrhage noted in left) left Sclerae: sclerae normal Pupils: Equal, round and reactive pupils present Neck Neck: Yes no lymphadenopathy and Yes no JVD Thyroid: Thyroid normal Carotids: no bruits Resp Effort & Inspection: normal respiratory effort and not tachypneic Auscultation: no crackles, no rales, no rhonchi and no wheezes Cardio Rate: regular rate Rhythm: regular rhythm Heart sounds: no murmurs and normal S1 and S2 GI Palpation (GI): Soft to palpation, nontender, no hepatomegaly and no sple nomegaly Auscultation: normal bowel sounds Skin General skin exam: no rashes or lesions noted and dry skin Neuro General: oriented to person, oriented to place and oriented to time Cranial nerves: Yes Equal, round and reactive pupils present Speech: No Abnormal speech present Gait exam (Neuro): Normal gait present Motor exam (neuro): no tremor noted Extrem Right upper extremity: full ROM Left upper extremity: full ROM Right lower extremity: full ROM; no edema Left lower extremity: full ROM; no edema Psych Mental Status: mental status grossly normal Speech and movement: Normal speech and movement present Affect: normal affect Attitude: cooperative Thought process: Normal thought process present Assessment and Plan Assessment & Plan (1) SLE glomerulonephritis syndrome: Comment: onset 4334-1411 Fevers, rashes, pulmonary embolism, alopecia, arthralgias, oral ulcers class 3 and class 5 nephritis, low C3, low C4 Treated with Cytoxan and prednisone Coumadin throughout Cyclosporin 2005 DC due to epigastric pain CellCept 2008 uptitrated to 3 g daily, developed worsening proteinuria Rituximab 2 doses, 2 weeks apart 2010 Believes that she took hydroxychloroquine and discontinued it due to tinnitus ?! Benlysta 02/2012 was helpful especially for skin lesions. Discontinued due to loss of insurance Acthar gel 2016 took it for about a year inconsistently Repeat kidney biopsy 04/2022 showed class 3 and 5 nephritis. Received 1 dose of rituximab 08/2022 with some improvement Code(s): M32.14 - Glomerular disease in systemic lupus erythematosus Plan: As per HPI patient has lupus glomerulonephritis. Most recent creatinine at 2.4, GFR at 20 Followed by electronic engraver though reports she has no further follow-up. Has tried multiple medications for her glomerulonephritis though had intolerant side effects. Has got a 2nd opinion with a electronic engraver in [place] though no medication recommended. ? Renal transplant verses dialysis consider. She will try to follow-up with her director of counterintelligence about treating lupus (2) Hypertriglyceridemia: Code(s): E78.1 - Pure hyperglyceridemia Plan: Patient would like to reestablish care with a dietitian to help her manage her diet. Has history of hypertriglyceridemia. Also needs to follow low protein low sodium diet due to her glomerular nephritis. (3) Hypothyroidism: Code(s): E03.9 - Hypothyroidism, unspecified Qualifiers: Hypothyroidism type: due to Yaa's thyroiditis Qualified Code(s): E03.8 - Other specified hypothyroidism; E06.3 - Autoimmune thyroiditis Plan: Continues on levothyroxine 100 mcg. Most recent TSH has been stable. Does follow Endocrinology here in [place]. (4) Lupus (systemic lupus erythematosus): Code(s): M32.9 - Systemic lupus erythematosus, unspecified Qualifiers: Systemic lupus erythematosus organ involvement: glomerular disease Systemic lupus erythematosus type: other Qualified Code(s): M32.14 - Glomerular disease in systemic lupus erythematosus Plan: Has seen a director of counterintelligence and lupus medications are being considered. 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
== END 2023-08-14 16:46 | disposition home or self-care (01) ==
PROVIDERS: PCP Physician Assistant; Visit Provider Physician Assistant
DX: M32.14 Glomerular disease in systemic lupus erythematosus (principal); E78.1 Pure hyperglyceridemia; E03.8 Other specified hypothyroidism; E06.3 Autoimmune thyroiditis
CPT/HCPCS: 99214

== ENCOUNTER 2023-08-16 13:59 | Outpatient (AMB) | payer OTHER, MEDICAID, SELFPAY ==
[2023-08-16 14:06] VITALS: BP 128/78; PULSE 69; BMI 23.0
--- NOTE | 2023-08-16 14:06 | MHC.OFFVIS ---
Intake Vital Signs 08/16/23 14:06 Height 5 ft Weight 117 lb 15.157 oz BMI 23.0 BP 128/78 Blood Pressure Location Rt brachial Position Sitting Pulse 69 Pulse Source Pulse Oximeter Intake Visit Reasons: F/U HLD and Hypothyroidism/LVM Intake Note: Patient presents today for HLD and Hypothyroidism follow up. Last seen by Dr. Lund on 12/13/2022. Windlace Machine Operator Required: No Accompanied by: Self / Same As Patient Allergies rituximab [From Rituxan] Allergy (Severe, Verified 08/16/23 14:10) Anaphylaxis cephalexin [From Keflex] Allergy (Unknown, Verified 08/16/23 14:10) RED+ITCHY,RASH Cephalosporins [CEPHALOSPORINS] Allergy (Unknown, Verified 08/16/23 14:10) RED+ITCHY Sulfa (Sulfonamide Antibiotics) [SULFA(SULFONAMIDE ANTIBIOTICS)] Allergy (Unknown, Verified 08/16/23 14:10) RED+ITCHY retuxin Adverse Reaction (Severe, Uncoded 08/16/23 14:10) Abdominal Pain Medication List - Last Reconciled 08/16/23 by Gino Mora MD atorvastatin 20 mg PO BEDTIME 30 days cholecalciferol (vitamin D3) 100 mcg (2 x 50 mcg (2,000 unit)) PO DAILY 30 days clobetasol 0.05% 1 appl topical DAILY erythromycin 1 appl ophthalmic (eye) DAILY 15 days fluocinonide 0.05% appl topical gabapentin 200 mg (2 x 100 mg) PO DAILY 30 days levothyroxine 100 mcg PO DAILY 90 days lisinopril 2.5 mg PO DAILY loratadine 10 mg PO DAILY 14 days magnesium oxide 250 mg PO BID prednisone 10 mg PO DAILY warfarin 5 mg See Protocol PO DAILY HPI HPI Comments History of Present Illness Details 58 YO Female with a complex medical history including SLE with nephritis, history of PE on chronic AC with Coumadin, 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 She was previously followed by Dr. Verma. The patient last saw Dr. Lund on 12/13/2022 She has a longstanding history of hypertriglyceridemia. She remains off fibrates due to the risk of interaction with warfarin. She has not been evaluated by a lipid specialist. After our initial visit I did refer her to Dr. Lydia Gunderson. She was unable to attend this appointment due to lack of transportation. She was started on Atorvastatin and is currently on 20 mg PO daily. LDL remains elevated as do TG levels. 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 She has required high doses of levothyroxine, which was thought by Dr. Verma to be due to nephrotic syndrome. It does appear she had nephrotic range proteinuria back in 2002 and 2005, but this has not been routinely assessed in our system since that time. She was requiring high doses of levothyroxine, and at the time of her initial visit with me she was using levothyroxine 250 mcg PO daily. Her labs reveal hyperthyroidism with suppressed TSH, however she also remains on Prednisone 10 mg PO daily. FT4 was WNL, so I do not suspect it is the prednisone causing lowering of her TSH. I decreased her levothyroxine at that time to 175 mcg PO daily, but TSH remained suppressed. Her dose was further decreased, now to levothyroxine 100 mcg PO daily and TSH is now at goal. She had a thyroid US completed 11/10/2021 which revealed no nodules. She reports feeling well and has no complaints today. She has Vitamin D deficiency and is prescribed a high dose Vitamin D 2000 IU daily. Vitamin D is at goal. Labs: Laboratory Tests 12/09/22 12/09/22 07:31 07:31 Triglycerides 349 Cholesterol 247 LDL Cholesterol Di rect 135 H LDL Cholesterol, C alc 147 HDL Cholesterol 31 TSH 1.30 Free T4 1.06 COUNT INCLUDES THE [facility] Medical History Prediabetes SLE glomerulonephritis syndrome History of pulmonary embolism Vitamin D deficiency Hypertriglyceridemia Hypothyroidism Surgical History Hx of tubal ligation Family History Father Family history unknown Mother Hypertension Diabetes Deep vein thrombosis CVA (cerebral vascular accident) Brother CVA (cerebral vascular accident), Onset Age: 48 Brother CVA (cerebral vascular accident), Onset Age: 38 Social History Household Members: None Housing: House Alcohol intake: former Patient Tobacco Use Status: Former Tobacco user Quit Date: 03/03/22 e-Cigarette/Vaping Use: Never Used service: No Current occupational status: employed 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 There are no thyroid nodules palpated Assessment & Plan Assessment & Plan (1) Hypertriglyceridemia: Code(s): E78.1 - Pure hyperglyceridemia Plan: This is a 58-year-old female with a history of mixed hyperlipidemia in the setting of CKD stage 4. Patient has not been taking the atorvastatin Stress compliance with the atorvastatin. Recheck lipid profile 8 weeks after starting the atorvastatin. If triglycerides are significantly elevated could increase statin dose. Will also push diet and exercise (2) Hypothyroidism: Code(s): E03.9 - Hypothyroidism, unspecified Qualifiers: Hypothyroidism type: due to Ar's thyroiditis Qualified Code(s): E03.8 - Other specified hypothyroidism; E06.3 - Autoimmune thyroiditis Plan: History of hypothyroidism currently levothyroxine 100 mcg. Appears to be clinically euthyroid. 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
== END 2023-08-16 15:29 | disposition home or self-care (01) ==
PROVIDERS: PCP Physician Assistant; Visit Provider Internal Medicine Endocrinology, Diabetes & Metabolism
DX: E78.1 Pure hyperglyceridemia (principal); E03.8 Other specified hypothyroidism; E06.3 Autoimmune thyroiditis
CPT/HCPCS: 99213

== ENCOUNTER → 2023-08-16 13:59 | Outpatient (BNVA) | payer OTHER, MEDICAID, SELFPAY | PROVIDERS: Visit Provider Internal Medicine Endocrinology, Diabetes & Metabolism ==

== ENCOUNTER 2023-08-21 14:16 | Outpatient (AMB) | payer OTHER, MEDICAID, SELFPAY ==
--- NOTE | 2023-08-21 14:22 | MHC.OFFVISCO ---
Intake Intake Visit Reasons: Anticoagulation Allergies rituximab [From Rituxan] Allergy (Severe, Verified 08/21/23 14:16) Anaphylaxis cephalexin [From Keflex] Allergy (Unknown, Verified 08/21/23 14:16) RED+ITCHY,RASH Cephalosporins [CEPHALOSPORINS] Allergy (Unknown, Verified 08/21/23 14:16) RED+ITCHY Sulfa (Sulfonamide Antibiotics) [SULFA(SULFONAMIDE ANTIBIOTICS)] Allergy (Unknown, Verified 08/21/23 14:16) RED+ITCHY retuxin Adverse Reaction (Severe, Uncoded 08/21/23 14:16) Abdominal Pain Medication List - Last Reconciled 08/21/23 by Shana Allen RN atorvastatin 20 mg PO BEDTIME 30 days cholecalciferol (vitamin D3) 100 mcg (2 x 50 mcg (2,000 unit)) PO DAILY 30 days clobetasol 0.05% 1 appl topical DAILY erythromycin 1 appl ophthalmic (eye) DAILY 15 days fluocinonide 0.05% appl topical gabapentin 200 mg (2 x 100 mg) PO DAILY 30 days levothyroxine 100 mcg PO DAILY 90 days lisinopril 2.5 mg PO DAILY loratadine 10 mg PO DAILY 14 days magnesium oxide 250 mg PO BID prednisone 10 mg PO DAILY warfarin 5 mg See Protocol PO DAILY Nursing Note INR: 3.0- in therapeutic range of 2-3 Medications and supplements reviewed- atorvastatin 20mg q hs- no interaction with warfarin per micromedex No changes in health, diet, medications, or supplements, Denies any signs and symptoms of bleeding or bruising or clotting. Bleeding, bruising, clotting discussed Nutritional guidance given - eat a green today Dose: 5mg x 2, 2.5mg x 5 F/U INR: 10 days Patient verbalizes understanding of instructions given Anti-Coag Initial Assessment Social Hx Patient Tobacco Use Status: Former Tobacco user Quit Date: 03/03/22 alcohol intake: former Alcohol intake frequency: does not drink Coding Level of Care Code Est Patient Level 1 Diagnoses Current use of anticoagulant therapy Z79.01 Assessment & Plan Assessment & Plan (1) Current use of anticoagulant therapy: Code(s): Z79.01 - [facility] (current) use of anticoagulants Category: Medical
[2023-08-21 14:23] LABS: Prothrombin Time Whole Bld POC 35.9 sec (11.1-13.5)
== END 2023-08-21 14:29 | disposition home or self-care (01) ==
LOC: HO.ACS 14:16
PROVIDERS: PCP Physician Assistant; Visit Provider Internal Medicine
DX: Z79.01 Long term (current) use of anticoagulants (principal)

== ENCOUNTER → 2023-08-21 14:16 | Outpatient (BNVA) | payer OTHER, MEDICAID, SELFPAY | PROVIDERS: PCP Physician Assistant; Visit Provider Internal Medicine | DX: I26.99 Other pulmonary embolism without acute cor pulmonale (principal); Z51.81 Encounter for therapeutic drug level monitoring; Z79.01 Long term (current) use of anticoagulants | CPT/HCPCS: 85610; 99211 ==

== ENCOUNTER 2023-08-31 15:50 | Outpatient (AMB) | payer OTHER, MEDICAID, SELFPAY ==
[2023-08-31 15:57] LABS: Prothrombin Time Whole Bld POC 46.6 sec (11.1-13.5); ~PT, ~INR - Anti Coag Clinic 3.9 (0.9-1.1)
--- NOTE | 2023-08-31 16:09 | MHC.OFFVISCO ---
Intake Intake Visit Reasons: Anticoagulation Allergies rituximab [From Rituxan] Allergy (Severe, Verified 08/31/23 15:52) Anaphylaxis cephalexin [From Keflex] Allergy (Unknown, Verified 08/31/23 15:52) RED+ITCHY,RASH Cephalosporins [CEPHALOSPORINS] Allergy (Unknown, Verified 08/31/23 15:52) RED+ITCHY Sulfa (Sulfonamide Antibiotics) [SULFA(SULFONAMIDE ANTIBIOTICS)] Allergy (Unknown, Verified 08/31/23 15:52) RED+ITCHY retuxin Adverse Reaction (Severe, Uncoded 08/31/23 15:52) Abdominal Pain Medication List - Last Reconciled 08/31/23 by Jessica Leary RN atorvastatin 20 mg PO BEDTIME 30 days cholecalciferol (vitamin D3) 100 mcg (2 x 50 mcg (2,000 unit)) PO DAILY 30 days clobetasol 0.05% 1 appl topical DAILY erythromycin 1 appl ophthalmic (eye) DAILY 15 days fluocinonide 0.05% appl topical gabapentin 200 mg (2 x 100 mg) PO DAILY 30 days levothyroxine 100 mcg PO DAILY lisinopril 2.5 mg PO DAILY loratadine 10 mg PO DAILY 14 days magnesium oxide 250 mg PO BID prednisone 10 mg PO DAILY warfarin 5 mg See Protocol PO DAILY Nursing Note INR 3.9?? out of therapeutic range Medications and supplements reviewed Patient status: feeling very tiered, no longer going to [facility] for her lupus and kidneys - states they did not help her, going to keep md here for Rhuematology, may be going on transplant list Lupus can cause the INR to fluccuate pt has decreased renal functions but holding at a non-dialysis level - may be effecting the INR has not had usual greens Medications or supplements: started atrovastatin a few weeks ago - in rare instantances it has raised INR in someone in the past, will cont to monitor Diet: limited - has not had usual greens, limited diet due to renal function Denies any signs and symptoms of bleeding or clotting or unusual bruising Bleeding, bruising, clotting discussed Nutritional guidance given: resume greens that you can have with renal diet Dose: already took today's dose will hold tomorrow then resume usual dose 5mg x 2 days/ 2.5mg x 5 days F/U INR Date : 2 weeks 09/14/23?? Patient verbalizing understanding of instructions given. Anti-Coag Initial Assessment Social Hx Patient Tobacco Use Status: Former Tobacco user Quit Date: 03/03/22 alcohol intake: former Alcohol intake frequency: does not drink Questionnaires HAS-BLED Does the patient had uncontrolled Hypertension?: No Does the patient have renal disease?: Yes Does the patient have liver disease?: No Does the patient have a history of stroke?: No Has the patient had major bleeding or predisposition to bleeding?: No Does the patient have labile INRs?: Yes Is the patient over 65 years of age?: No Is the patient on medications that gives them a predisposition to bleeding?: Yes Does the patient use alcohol?: No HAS-BLED Score: 3 CHADSVASC Age: <65 Gender: Female Does the patient have a history of CHF?: No Does the patient have a history of Hypertension?: Yes Does the patient have a history of Stroke/TIA/Thromboembolism?: Yes Does the patient have a history of Vascular Disease (prior PR, PAD or aortic plaque)?: No Does the patient have a history of Diabetes?: No CHADS VACS Score: 4 Sanaz Prediction Score Rsk VTE Active Cancer: No Previous VTE, excluding superficial vein thrombosis: Yes Reduced mobility: No Already known Thrombophilic Condition: Yes With-in last month Trauma and/or Surgery: No Elderly 70 year or older: No Heart and/or Respiratory Failure: No Acute Myocardial infarction and/or Ischemic Stroke: No Acute Infection and/or Rheumatologic Disorder: Yes Obesity (BMI 30 or greater): No Ongoing Hormonal Treatment: No Score: 7 Sanaz Score less than 4; Low Risk of VTE Sanaz Score 4 or greater; High Risk of VTE Coding Level of Care Code Est Patient Level 1 Diagnoses Current use of anticoagulant therapy Z79.01 Assessment & Plan Assessment & Plan (1) Current use of anticoagulant therapy: Code(s): 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
== END 2023-08-31 16:17 | disposition home or self-care (01) ==
LOC: HO.ACS 15:51
PROVIDERS: PCP Physician Assistant; Visit Provider Internal Medicine
DX: Z79.01 Long term (current) use of anticoagulants (principal)

== ENCOUNTER → 2023-08-31 15:50 | Outpatient (BNVA) | payer OTHER, MEDICAID, SELFPAY | PROVIDERS: PCP Physician Assistant; Visit Provider Internal Medicine | DX: I26.99 Other pulmonary embolism without acute cor pulmonale (principal); Z51.81 Encounter for therapeutic drug level monitoring; Z79.01 Long term (current) use of anticoagulants | CPT/HCPCS: 85610; 99211 ==

== ENCOUNTER 2023-09-03 15:46 | Outpatient (AMB) | payer OTHER, MEDICAID, SELFPAY ==
--- NOTE | 2023-09-03 15:51 | MHC.OFFVIS ---
Intake Vital Signs 09/03/23 15:57 Height 5 ft Weight 119 lb 11.376 oz BMI 23.4 BP 112/60 Blood Pressure Location Rt brachial Position Sitting Pulse 79 Pulse Source Pulse Oximeter Temp 97.5 F Temp Source Skin Pulse Oximetry (%) 98 Oxygen Delivery Method Room Air Intake Visit Reasons: SLE Intake Note: Patient last seen 08/02/23 presents today for follow up. Gatehouse Attendant Required: No Accompanied by: Self / Same As Patient Allergies rituximab [From Rituxan] Allergy (Severe, Verified 09/03/23 15:58) Anaphylaxis cephalexin [From Keflex] Allergy (Unknown, Verified 09/03/23 15:58) RED+ITCHY,RASH Cephalosporins [CEPHALOSPORINS] Allergy (Unknown, Verified 09/03/23 15:58) RED+ITCHY Sulfa (Sulfonamide Antibiotics) [SULFA(SULFONAMIDE ANTIBIOTICS)] Allergy (Unknown, Verified 09/03/23 15:58) RED+ITCHY retuxin Adverse Reaction (Severe, Uncoded 09/03/23 15:58) Abdominal Pain Medication List - Last Reconciled 09/03/23 by Federico Stallworth MD atorvastatin 20 mg PO BEDTIME 30 days cholecalciferol (vitamin D3) 100 mcg (2 x 50 mcg (2,000 unit)) PO DAILY 30 days clobetasol 0.05% 1 appl topical DAILY erythromycin 1 appl ophthalmic (eye) DAILY 15 days fluocinonide 0.05% appl topical gabapentin 200 mg (2 x 100 mg) PO DAILY 30 days levothyroxine 100 mcg PO DAILY lisinopril 2.5 mg PO DAILY loratadine 10 mg PO DAILY 14 days magnesium oxide 250 mg PO BID prednisone 10 mg PO DAILY prednisone Starting October 04, take 3 tabs daily for 1 month then remain on 2 tabs daily warfarin 5 mg See Protocol PO DAILY HPI HPI Comments History of Present Illness Details This is a 58-year-old female with SLE who presents for follow-up. She is on prednisone 10 mg daily. She is doing well overall with no lupus symptoms such as joint pains, skin rashes, fevers or unintentional weight loss. Has not had any infections recently. She was recently evaluated by human resources assistant Dr. Altman at [facility] and was told that she has significant sclerosis on her kidney biopsy and further immune suppression would not be helpful. Per Dr. Andino in 2019: Patient was diagnosed with lupus in 2002 when she was admitted in the ICU with chest pain, leg swelling, fever,rash and shortness of breath. 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 She also had alopecia, joint pains, skin eruptions. She has questionable Raynaud, occasional oral ulcers. She recieved cytoxan in 2005, was tried on cyclosporin which was discontinued sec to epigastric pain.She was started on cellcept in 2008 sec to ongoing proteinuria. Inspite of increasing it to 3gms she continued to have ongoing proteinuria. She has recieved 2 doses of Rituximab 500mg , 2 weeks apart in 2010. Since February 2012 she was started on Benlysta for her skin symptoms with improvement. She had been getting it until she lost her insurance late last year. She feels the Benlysta really helped her with the rash. Benlysta was stopped . They she was out on Acthar gel but it was stopped because of insurance coverage. This was in 2017, she took it for a year but not a complete year. It never was consistent. ?She is currently taking plaquenil, enalapril, and one more (she will call to give us the name) and coumadin. She is using clobetasol for her rash and it is helping. ?Bone density: DIAGNOSIS: Normal bone density based on the lowest T-score value of?-0.9 in the femoral neck applying World Health Organization criteria.?Hands radiographs: Normal right and left hand studies without evidence of osteoarthritis or erosive arthritides. [facility] Medical History Prediabetes SLE glomerulonephritis syndrome History of pulmonary embolism Vitamin D deficiency Hypertriglyceridemia Hypothyroidism Surgical History Hx of tubal ligation Family History Father Family history unknown Mother Hypertension Diabetes Deep vein thrombosis CVA (cerebral vascular accident) Brother CVA (cerebral vascular accident), Onset Age: 48 Brother CVA (cerebral vascular accident), Onset Age: 38 Social History Household Members: None Housing: House Alcohol intake: former Patient Tobacco Use Status: Former Tobacco user Quit Date: 03/03/22 e-Cigarette/Vaping Use: Never Used service: No Current occupational status: employed 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 Cognitive needs: No Hearing needs: No Vision needs: No Review of Systems Const Denies fever(s) Musc Denies arthralgias, Denies joint swelling and Denies stiffness Skin/Breast Denies rash Physical Exam Vital Signs: Last Vital Signs Temp 97.5 F 09/03/23 15:57 Pulse 79 09/03/23 15:57 BP 112/60 09/03/23 15:57 Pulse Ox 98 09/03/23 15:57 Oxygen Delivery Method Room Air 09/03/23 15:57 BMI result Body Mass Index 23.4 Const General: cooperative, healthy appearing and comfortable Nutritional Appearance: average body habitus Orientation/consciousness: patient oriented x3 Limitations: no limitations HEENT Head: Yes normocephalic and Yes atraumatic Mouth: moist mucous membranes Resp Effort & Inspection: normal respiratory effort and able to speak in complete sentences Auscultation: clear to auscultation bilaterally Cardio Rate: regular rate Rhythm: regular rhythm Skin General skin exam: no rashes or lesions noted Neuro General: patient oriented x3 Extrem Other: No active synovitis Normal nailfold capillaroscopy Results Reviewed Results Reviewed: Right kidney biopsy 04/2022: [facility] Dept. of Pathology (their number [id number]): - Focal lupus nephritis and membranous lupus nephritis (class III + V, pending EM studies). - Focal endocapillary proliferation (2 glomeruli, 7%) and a singular cellular crescent (3%). - Global sclerosis of 16 of 29 glomeruli (55%) with severe interstitial fibrosis and tubular atrophy involving 60-70% of the cortical area. - Electron microscopy has been initiated to evaluate the extent and location of electron dense deposits,[facility] Dept. of Pathology (their number [id number]): - Focal lupus nephritis and membranous lupus nephritis (class III + V, pending EM studies). - Focal endocapillary proliferation (2 glomeruli, 7%) and a singular cellular crescent (3%). - Global sclerosis of 16 of 29 glomeruli (55%) with severe interstitial fibrosis and tubular atrophy involving 60-70% of the cortical area. - Electron microscopy has been initiated to evaluate the extent and location of electron dense deposits, which could potentially alter classification, to be reported in an addendum. - Modified NIH lupus nephritis activity index: 7. Chronicity index: 9 Note: The findings support combined membranous (class V) and focal lupus nephritis (class III), pending electron microscopy to confirm the extent and location of electron dense depositswhich could potentially alter classification, to be reported in an addendum. - Modified NIH lupus nephritis activity index: 7. Chronicity index: 9 Note: The findings support combined membranous (class V) and focal lupus nephritis (class III), pending electron microscopy to confirm the extent and location of electron dense deposits Labs 06/2023 C3 97 (83-193) C4 22 (15-57) Beta 2 glycoprotein IgG/beta 2 glycoprotein IgA/Be2 glycoprotein IgM/phosphatidylserine IgG/phosphatidylserine IgM/cardiolipin IgA/cardiolipin IgG/cardiolipin IgM all negative Creatinine 2.61 with GFR 21 Sodium/potassium/calcium/phosphate all normal PTH 205 (16-77) CBC unremarkable except for mild anemia hemoglobin 11.4 (>11.7) Platelets 310 WBC 5.9 Total iron 36 (45-160) TIBC 270 250-450 Iron saturation 13 (16-45%) Ferritin 75 nl Vitamin-D 22 low TYRON IFA negative DsDNA 2 (-ve) Albumin to creatinine ratio 2286 (<30) Protein to creatinine ratio 4.6 grams Assessment & Plan Assessment & Plan (1) Lupus (systemic lupus erythematosus): Comment: onset [id number] Fevers, rashes, pulmonary embolism, alopecia, arthralgias, oral ulcers class 3 and class 5 nephritis, low C3, low C4 Treated with Cytoxan and prednisone Coumadin throughout Cyclosporin 2005 DC due to epigastric pain CellCept 2008 uptitrated to 3 g daily, developed worsening proteinuria Rituximab 2 doses, 2 weeks apart 2010 Believes that she took hydroxychloroquine and discontinued it due to tinnitus ?! Benlysta 02/2012 was helpful especially for skin lesions. Discontinued due to loss of insurance Acthar gel 2016 took it for about a year inconsistently Repeat kidney biopsy 04/2022 showed class 3 and 5 nephritis. Received 1 dose of rituximab 08/2022 with some improvement Code(s): M32.9 - Systemic lupus erythematosus, unspecified Qualifiers: Systemic lupus erythematosus type: other Systemic lupus erythematosus organ involvement: glomerular disease Qualified Code(s): M32.14 - Glomerular disease in systemic lupus erythematosus Plan: This is a 58-year-old female who for follow-up. This is her 2nd visit with me.? She has not been evaluated by a mechanical manager for a number of years.? She is on prednisone 10 mg daily. She was not on any other DMARDs. Recently patient was evaluated by human resources assistant Dr. Altman at [facility].? I discussed her case with Dr. Altman, she reviewed patient's kidney biopsy from last year and she states that it shows about 70% sclerosis and not much disease activity. Patient's lupus disease activity labs are unremarkable. With normal C3, C4, dsDNA. Dr. Altman does not believe that further immune suppression at this point would prevent progression of her CKD. Patient is doing relatively well on prednisone 10 mg daily but we need to lower her prednisone to prevent complications of long-term steroids. Will need to add a DMARD. It looks like patient has done best on Benlysta. Discussed risks and benefits of Benlysta. Patient agreed to proceed. Will start prior authorization for Benlysta Continue with prednisone 10 mg daily for 1 month then reduce to 7.5 mg daily for 1 month then remain on 5 mg daily Labs before next visit in 3 months (2) SLE glomerulonephritis syndrome: Comment: onset [id number] class 3 and class 5 nephritis, low C3, low C4 Repeat kidney biopsy 04/2022 showed class 3 and 5 nephritis. Received 1 dose of rituximab 08/2022 with some improvement Code(s): M32.14 - Glomerular disease in systemic lupus erythematosus Plan: Continue to follow-up with Nephrology (3) Immunization counseling: Code(s): Z71.85 - Encounter for immunization safety counseling Plan: Patient received 3 doses of COVID vaccine. She did not get flu vaccine for the season. Advised patient to get flu vaccine for the season. No need to hold prednisone or Benlysta Plan I spent 25 minutes reviewing patient's chart, evaluating patient, ordering diagnostic workup, counseling patient and documenting in the chart Orders: Orders Anti DNA DS Antibody 3 Months M32.9 - Systemic lupus erythematosus, unspecified Complement C4 3 Months M32.9 - Systemic lupus erythematosus, unspecified Erythrocyte Sedimentation Rate 3 Months M32.9 - Systemic lupus erythematosus, unspecified C Reactive Protein 3 Months M32.9 - Systemic lupus erythematosus, unspecified Protein Creatinine Ratio, Ur 3 Months M32.9 - Systemic lupus erythematosus, unspecified Comprehensive Met. Panel 3 Months M32.9 - Systemic lupus erythematosus, unspecified Urine Cytology 3 Months Z92.21 - Personal history of antineoplastic chemotherapy Complement C3 3 Months M32.9 - Systemic lupus erythematosus, unspecified UA w Microscopic 3 Months M32.9 - Systemic lupus erythematosus, unspecified Complete Blood Count Auto Diff 3 Months M32.9 - Systemic lupus erythematosus, unspecified Medications: New prednisone Starting October 04, take 3 tabs daily for 1 month then remain on 2 tabs daily 150 tabs 1RF Coding Level of Care Code Est Pt Level 4 (77514) Diagnoses Other systemic lupus erythematosus with glomerular disease M32.14 Systemic lupus erythematosus type: other Systemic lupus erythematosus organ involvement: glomerular disease SLE glomerulonephritis syndrome M32.14 Immunization counseling Z71.85
[2023-09-03 15:57] VITALS: BP 112/60; PULSE 79; TEMP 36.4; O2SAT 98; BMI 23.4
== END 2023-09-03 16:23 | disposition home or self-care (01) ==
LOC: HO.RHE 15:46
PROVIDERS: PCP Physician Assistant; Visit Provider Student in an Organized Health Care Education/Training Program
DX: M32.14 Glomerular disease in systemic lupus erythematosus (principal); Z71.85 Encounter for immunization safety counseling
CPT/HCPCS: 99214

== ENCOUNTER → 2023-09-03 15:46 | Outpatient (BNVA) | payer OTHER, MEDICAID, SELFPAY | PROVIDERS: PCP Physician Assistant; Visit Provider Student in an Organized Health Care Education/Training Program ==

== ENCOUNTER 2023-09-04 16:07 | Outpatient (REF) | payer OTHER, MEDICAID, SELFPAY ==
[2023-09-04 16:28] LABS: MANUAL DIFF FLAG NO
[2023-09-04 16:52] LABS: Basophils Percent Auto 0.2 % (0-2); Eosinophils Absolute Auto 0.2 X10*3/uL (0.0-0.4); Eosinophils Percent Auto 3.1 % (0-4); Hematocrit 31.8 % (37.0-47.0); Hemoglobin 10.3 g/dl (12.0-16.0); Imm Gran Abs Auto 0.02 X10*3/uL (0.00-0.03); Imm Gran Pct Auto 0.3 % (0.0-0.4); Lymphocytes Absolute Auto 1.6 X10*3/uL (1.2-4.9); Lymphocytes Percent Auto 25.6 % (20-40); Mean Corpuscular HGB Conc 32.4 g/dl (31.0-35.0); Mean Corpuscular Hemoglobin 29.9 pg (27.0-33.0); Mean Corpuscular Volume 92.2 fL (80.0-98.0); Mean Platelet Volume 10.6 fL (9.4-12.3); Monocytes Absolute Auto 0.5 X10*3/uL (0.1-1.2); Monocytes Percent Auto 8.8 % (2-11); Neutrophils Absolute Auto 3.8 x10*3/uL (2.0-8.3); Platelet Count 265 X10*3/uL (160-400); Red Blood Count 3.45 X10*6/uL (4.20-5.50); Red Cell Distribution Width 13.2 % (11.0-16.0); White Blood Count 6.1 X10*3/uL (4.8-10.8)
[2023-09-04 17:19] LABS: Alanine Aminotransferase 17 U/L (0-31); Albumin Level 3.9 g/dL (3.5-5.0); Alkaline Phosphatase 107 U/L (39-117); Anion Gap 9 (12-20); Aspartate Amino Transferase 19 U/L (5-31); Bilirubin Total 0.3 mg/dL (0.0-1.0); Blood Urea Nitrogen 50 mg/dL (9-16); Calcium 9.7 mg/dL (8.4-10.2); Carbon Dioxide 18 mmol/L (22-29); Chloride 115 mmol/L (96-108); Estimated Glomerular Filt Rate 19; Glucose Random 102 mg/dL (60-115); Sodium 138 mmol/L (135-145); Total Protein 7.6 g/dL (6.5-8.0)
[2023-09-04 17:54] LABS: Appearance Urine Clear; Color Urine Yellow; Glucose Urine UA 100 mg/dL (Negative); Leukocyte Esterase Urine Negative (Negative); Nitrite Urine Negative (Negative); PH 5.5 (5.0-9.0); Specific Gravity - Urine 1.015 (1.005-1.025); UMIC TRIGGER UA YES; Urine Blood Small (1+) (Negative); Urine Ketones Negative (Negative); Urine Protein 300 (3+) mg/dL (Neg-Trace)
[2023-09-04 18:01] LABS: Bacteria Urine None Seen (None Seen); Hyaline Casts Urine 0-2 /LPF (0-2); RBC Urine 0-2 /HPF (0-2); Squamous Epithelial Cell Urine 0-2 /HPF (0-2); WBC Urine 0-5 /HPF (0-5)
[2023-09-04 18:20] LABS: Total Protein Urine Random 261 mg/dL (<12)
[2023-09-05 05:25] LABS: Parathyroid Hormone Intact 255.1 pg/mL (8.7-77.1)
== END 2023-09-04 16:08 | disposition home or self-care (01) ==
LOC: HO.LAB 16:07
PROVIDERS: PCP Physician Assistant; Visit Provider Internal Medicine Hypertension Specialist
DX: N18.4 Chronic kidney disease, stage 4 (severe) (principal); M32.14 Glomerular disease in systemic lupus erythematosus
CPT/HCPCS: 36415; 80053; 81001; 82570; 83970; 84156; 85025

== ENCOUNTER 2023-09-06 15:17 | Outpatient (AMB) | payer OTHER, MEDICAID, SELFPAY ==
--- NOTE | 2023-09-06 15:18 | A.OFFVIS_ITS ---
Intake Vital Signs 09/06/23 15:21 Height 5 ft Weight 121 lb 8 oz BMI 23.7 BP 128/78 Blood Pressure Location Lt brachial Position Sitting Pulse 72 Pulse Source Pulse Oximeter Pulse Oximetry (%) 98 Oxygen Delivery Method Room Air Intake Visit Reasons: Continuing care from [facility]/ Confirmed Allergies rituximab [From Rituxan] Allergy (Severe, Verified 10/12/23 14:52) Anaphylaxis cephalexin [From Keflex] Allergy (Unknown, Verified 10/12/23 14:52) RED+ITCHY,RASH Cephalosporins [CEPHALOSPORINS] Allergy (Unknown, Verified 10/12/23 14:52) RED+ITCHY Sulfa (Sulfonamide Antibiotics) [SULFA(SULFONAMIDE ANTIBIOTICS)] Allergy (Unknown, Verified 10/12/23 14:52) RED+ITCHY retuxin Adverse Reaction (Severe, Uncoded 10/12/23 14:52) Abdominal Pain HPI HPI Comments History of Present Illness Details Dyraul 58-year-old man with history of SLE. She has chronic kidney disease. In 2001, she had a kidney biopsy which showed membranous nephropathy. She was treated with Cytoxan and prednisone and obtain remission. She would relapsed again and was treated with mycophenolate followed by active but she did not tolerate these medications and she refused treatment. She did receive a dose of Rituxan in early August 2022 and subsequently did not want further treatment due to perceived side effects. FORMERLY [facility], [facility] Medical History Prediabetes SLE glomerulonephritis syndrome History of pulmonary embolism Vitamin D deficiency Hypertriglyceridemia Hypothyroidism Surgical History Hx of tubal ligation Family History Father Family history unknown Mother Hypertension Diabetes Deep vein thrombosis CVA (cerebral vascular accident) Brother CVA (cerebral vascular accident), Onset Age: 48 Brother CVA (cerebral vascular accident), Onset Age: 38 Social History Household Members: None Housing: House Alcohol intake: former Patient Tobacco Use Status: Former Tobacco user Quit Date: 03/03/22 e-Cigarette/Vaping Use: Never Used service: No Current occupational status: employed 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 Cognitive needs: No Hearing needs: No Vision needs: No Review of Systems Const Reports weight loss (Intentional) Eyes Reports blurry vision, Reports dry eyes, Reports itchy eyes and Reports loss of vision ENT Reports tinnitus Card Denies dyspnea Resp Denies dyspnea GI Reports heartburn Musc Denies arthralgias, Denies joint swelling and Denies stiffness Neuro Reports loss of vision Psych Reports abnormal sleep pattern and Reports anxiety Aller/Immun Reports itchy eyes Physical Exam Vital Signs: Last Vital Signs Pulse 72 09/06/23 15:21 BP 128/78 09/06/23 15:21 Pulse Ox 98 09/06/23 15:21 Oxygen Delivery Method Room Air 09/06/23 15:21 BMI result Body Mass Index 23.7 Const General: cooperative, healthy appearing, no acute distress, well developed, alert and awake; No acute distress Orientation/consciousness: patient oriented x3 HEENT Other: NC/AT, no deformity Head: Yes normal to inspection, Yes normocephalic and Yes atraumatic Mouth: moist mucous membranes Eyes Other: Sclera anicteric, no exophthalmos, proptotis, chemosis or periorbital edema Pupils: Equal, round and reactive pupils present Neck Other: Trachea midline with full ROM. No thyromegaly, no palpable thyroid nodules, thyroid nontender to palpation. Neck: Yes no lymphadenopathy, Yes trachea midline and Yes supple Thyroid: Thyroid normal Resp Effort & Inspection: normal respiratory effort Auscultation: clear to auscultation bilaterally, no rales, no rhonchi and no wheezes Cardio Rate: regular rate Rhythm: regular rhythm Heart sounds: no gallops, no murmurs and no rubs GI Inspection: Yes normal to inspection and No distended Palpation (GI): Soft to palpation and nontender Auscultation: normal bowel sounds Skin Other: No Rashes General skin exam: no rashes or lesions noted Hair: normal Neuro General: patient oriented x3 Cranial nerves: Yes Equal, round and reactive pupils present Deep tendon reflexes (DTR's): Right brachioradialis reflex intensity grade: 2+ and Left brachioradialis reflex intensity grade: 2+ Extrem General: No edema Psych Other: Normal affect with clear speech Speech and movement: Normal speech and movement present Affect: normal affect Thought process: Normal thought process present Results Reviewed Results Reviewed: Right kidney [facility] number [id number]): - Focal lupus nephritis and membranous lupus nephritis (class III + V, pending EM studies). - Focal endocapillary proliferation (2 glomeruli, 7%) and a singular cellular crescent (3%). - Global sclerosis of 16 of 29 glomeruli (55%) with severe interstitial fibrosis and tubular atrophy involving 60-70% of the cortical area. - Electron microscopy has been initiated to evaluate the extent and location of electron dense deposits,[facility] (their number [id number]): - Focal lupus nephritis and membranous lupus nephritis (class III + V, pending EM studies). - Focal endocapillary proliferation (2 glomeruli, 7%) and a singular cellular crescent (3%). - Global sclerosis of 16 of 29 glomeruli (55%) with severe interstitial fibrosis and tubular atrophy involving 60-70% of the cortical area. - Electron microscopy has been initiated to evaluate the extent and location of electron dense deposits, which could potentially alter classification, to be reported in an addendum. - Modified NIH lupus nephritis activity index: 7. Chronicity index: 9 Note: The findings support combined membranous (class V) and focal lupus nephritis (class III), pending electron microscopy to confirm the extent and location of electron dense depositswhich could potentially alter classification, to be reported in an addendum. - Modified NIH lupus nephritis activity index: 7. Chronicity index: 9 Note: The findings support combined membranous (class V) and focal lupus nephritis (class III), pending electron microscopy to confirm the extent and location of electron dense deposits Labs 06/2023 C3 97 (83-193) C4 22 (15-57) Beta 2 glycoprotein IgG/beta 2 glycoprotein IgA/Be2 glycoprotein IgM/phosphatidylserine IgG/phosphatidylserine IgM/cardiolipin IgA/cardiolipin IgG/cardiolipin IgM all negative Creatinine 2.61 with GFR 21 Sodium/potassium/calcium/phosphate all normal PTH 205 (16-77) CBC unremarkable except for mild anemia hemoglobin 11.4 (>11.7) Platelets 310 WBC 5.9 Total iron 36 (45-160) TIBC 270 250-450 Iron saturation 13 (16-45%) Ferritin 75 nl Vitamin-D 22 low TYRON IFA negative DsDNA 2 (-ve) Albumin to creatinine ratio 2286 (<30) Protein to creatinine ratio 4.6 grams Assessment & Plan Assessment & Plan (1) CKD (chronic kidney disease) stage 4, GFR 15-29 ml/min: Code(s): N18.4 - Chronic kidney disease, stage 4 (severe) Plan: Due to underlying lupus nephropathy. Renal function is relatively stable. No signs or symptoms of uremia. No absolute indication to start her on renal replacement therapy yet. 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 Mild anemia in the setting of lupus and CKD. No indication for Epogen yet. We will screen for secondary hyperparathyroidism. Maintain blood pressure less than 130/80. Continue to avoid nephrotoxic agents including NSAIDs. (2) Lupus (systemic lupus erythematosus): Comment: onset 1231-6142 Treated with Cytoxan and prednisone Coumadin throughout Cyclosporin 2005 DC due to epigastric pain CellCept 2008 up titrated to 3 g daily, developed worsening proteinuria Rituximab 2 doses, 2 weeks apart 2010 Believes that she took hydroxychloroquine and discontinued it due to tinnitus ?! Benlysta 02/2012 was helpful especially for skin lesions. Discontinued due to loss of insurance Acthar gel 2016 took it for about a year inconsistently Repeat kidney biopsy 04/2022 showed class 3 and 5 nephritis. Received 1 dose of rituximab 08/2022 with some improvement Code(s): M32.9 - Systemic lupus erythematosus, unspecified Qualifiers: Systemic lupus erythematosus type: other Systemic lupus erythematosus organ involvement: glomerular disease Qualified Code(s): M32.14 - Glomerular disease in systemic lupus erythematosus (3) SLE glomerulonephritis syndrome: Comment: onset [id number] class 3 and class 5 nephritis, low C3, low C4 Repeat kidney biopsy 04/2022 showed class 3 and 5 nephritis. Received 1 dose of rituximab 08/2022 with some improvement Code(s): M32.14 - Glomerular disease in systemic lupus erythematosus Plan . Medications: New calcitriol 0.25 mcg PO DAILY 30 caps 2RF sodium bicarbonate 650 mg PO BID 60 tabs 3RF Discontinued cholecalciferol (vitamin D3) Discontinued Reason: Doctor's Order 100 mcg (2 x 50 mcg (2,000 unit)) PO DAILY 30 days 60 caps 11RF Coding Level of Care Code Tele New Pt Level 4 (32716) Diagnoses CKD (chronic kidney disease) stage 4, GFR 15-29 ml/min N18.4 Other systemic lupus erythematosus with glomerular disease M32.14 Systemic lupus erythematosus type: other Systemic lupus erythematosus organ involvement: glomerular disease SLE glomerulonephritis syndrome M32.14
[2023-09-06 15:21] VITALS: BP 128/78; PULSE 72; O2SAT 98; BMI 23.7
== END 2023-09-06 15:41 | disposition home or self-care (01) ==
PROVIDERS: PCP Physician Assistant; Visit Provider Internal Medicine Hypertension Specialist
DX: N18.4 Chronic kidney disease, stage 4 (severe) (principal); M32.14 Glomerular disease in systemic lupus erythematosus
CPT/HCPCS: 99204

== ENCOUNTER → 2023-09-06 15:17 | Outpatient (BNVA) | payer OTHER, MEDICAID, SELFPAY | PROVIDERS: PCP Physician Assistant; Visit Provider Internal Medicine Hypertension Specialist ==

== ENCOUNTER 2023-09-14 14:58 | Outpatient (AMB) | payer OTHER, MEDICAID, SELFPAY ==
[2023-09-14 15:33] LABS: Prothrombin Time Whole Bld POC 37.3 sec (11.1-13.5); ~PT, ~INR - Anti Coag Clinic 3.1 (0.9-1.1)
--- NOTE | 2023-09-14 15:42 | MHC.OFFVISCO ---
Intake Intake Visit Reasons: Anticoagulation Allergies rituximab [From Rituxan] Allergy (Severe, Verified 09/14/23 15:28) Anaphylaxis cephalexin [From Keflex] Allergy (Unknown, Verified 09/14/23 15:28) RED+ITCHY,RASH Cephalosporins [CEPHALOSPORINS] Allergy (Unknown, Verified 09/14/23 15:28) RED+ITCHY Sulfa (Sulfonamide Antibiotics) [SULFA(SULFONAMIDE ANTIBIOTICS)] Allergy (Unknown, Verified 09/14/23 15:28) RED+ITCHY retuxin Adverse Reaction (Severe, Uncoded 09/14/23 15:28) Abdominal Pain Medication List - Last Reconciled 09/14/23 by Jessica Leary RN atorvastatin 20 mg PO BEDTIME 30 days calcitriol 0.25 mcg PO DAILY clobetasol 0.05% 1 appl topical DAILY erythromycin 1 appl ophthalmic (eye) DAILY 15 days fluocinonide 0.05% appl topical gabapentin 200 mg (2 x 100 mg) PO DAILY 30 days levothyroxine 100 mcg PO DAILY lisinopril 2.5 mg PO DAILY loratadine 10 mg PO DAILY 14 days magnesium oxide 250 mg PO BID prednisone 10 mg PO DAILY prednisone Starting October 04, take 3 tabs daily for 1 month then remain on 2 tabs daily sodium bicarbonate 650 mg PO BID warfarin 5 mg See Protocol PO DAILY Nursing Note INR: 3.1 OUT of therapeutic range ( lupus can effect prothrombin times and cause an elevated INR ) Medications and supplements reviewed *pt states she has started on Calitriol for vit D3 , prednisone has been decreased to 2.5mg daily *she is seeing Nephrology here at [facility] Dr Patel *has a loose tooth- has dentist appt 09/18/23 - may need a dental extraction in near future date to be determined *Pt states she is tiered of eating green salads and salmon - enc her try cooked broccoli and blueberries for something different Denies any signs and symptoms of bleeding or bruising or clotting. Bleeding, bruising, clotting discussed Nutritional guidance given - cooked broccoli and blue berries Dose: keep same dose for now 5mg x 2 days/ 2.5mg x 5 days F/U INR: 2 weeks Patient verbalizes understanding of instructions given Anti-Coag Initial Assessment Social Hx Patient Tobacco Use Status: Former Tobacco user Quit Date: 7/29/22 alcohol intake: former Alcohol intake frequency: does not drink Coding Level of Care Code Est Patient Level 1 Diagnoses Current use of anticoagulant therapy Z79.01 Assessment & Plan Assessment & Plan (1) Current use of anticoagulant therapy: Code(s): Z79.01 - [facility] (current) use of anticoagulants Category: Medical
== END 2023-09-14 15:51 | disposition home or self-care (01) ==
LOC: HO.ACS 14:58
PROVIDERS: PCP Physician Assistant; Visit Provider Internal Medicine
DX: Z79.01 Long term (current) use of anticoagulants (principal)

== ENCOUNTER → 2023-09-14 14:58 | Outpatient (BNVA) | payer OTHER, MEDICAID, SELFPAY | PROVIDERS: PCP Physician Assistant; Visit Provider Internal Medicine | DX: I26.99 Other pulmonary embolism without acute cor pulmonale (principal); Z51.81 Encounter for therapeutic drug level monitoring; Z79.01 Long term (current) use of anticoagulants | CPT/HCPCS: 85610; 99211 ==

== ENCOUNTER 2023-09-28 15:14 | Outpatient (AMB) | payer OTHER, MEDICAID, SELFPAY ==
[2023-09-28 15:22] LABS: Prothrombin Time Whole Bld POC 29.6 sec (11.1-13.5); ~PT, ~INR - Anti Coag Clinic 2.5 (0.9-1.1)
--- NOTE | 2023-09-28 15:25 | MHC.OFFVISCO ---
Intake Intake Visit Reasons: Anticoagulation Allergies rituximab [From Rituxan] Allergy (Severe, Verified 09/28/23 15:15) Anaphylaxis cephalexin [From Keflex] Allergy (Unknown, Verified 09/28/23 15:15) RED+ITCHY,RASH Cephalosporins [CEPHALOSPORINS] Allergy (Unknown, Verified 09/28/23 15:15) RED+ITCHY Sulfa (Sulfonamide Antibiotics) [SULFA(SULFONAMIDE ANTIBIOTICS)] Allergy (Unknown, Verified 09/28/23 15:15) RED+ITCHY retuxin Adverse Reaction (Severe, Uncoded 09/28/23 15:15) Abdominal Pain Medication List - Last Reconciled 09/28/23 by Joann Herbert, RN atorvastatin 20 mg PO BEDTIME 30 days calcitriol 0.25 mcg PO DAILY clobetasol 0.05% 1 appl topical DAILY erythromycin 1 appl ophthalmic (eye) DAILY 15 days fluocinonide 0.05% appl topical gabapentin 200 mg (2 x 100 mg) PO DAILY 30 days levothyroxine 100 mcg PO DAILY lisinopril 2.5 mg PO DAILY loratadine 10 mg PO DAILY 14 days magnesium oxide 250 mg PO BID prednisone 10 mg PO DAILY prednisone Starting October 04, take 3 tabs daily for 1 month then remain on 2 tabs daily sodium bicarbonate 650 mg PO BID warfarin 5 mg See Protocol PO DAILY Nursing Note Amb to [facility] feeling well, dental was cancelled til , consult for future dental work Medications and supplements reviewed No other changes in health, diet, medications, or supplements Denies any unusual signs and symptoms of bruising, bleeding Denies any new Chest pain, SOB, or clotting INR: 2.5 in therapeutic range Nutritional guidance given: balance greens and reds in diet Dose: continue usual dosing; 5mg x 2 days and 2.5mg x 5 days F/U INR: 2 weeks Patient verbalizes understanding of instructions given with accurate read back/ teach back of dosing Anti-Coag Initial Assessment Social Hx Patient Tobacco Use Status: Former Tobacco user Quit Date: 03/03/22 alcohol intake: former Alcohol intake frequency: does not drink Coding Level of Care Code Est Patient Level 1 Diagnoses Current use of anticoagulant therapy Z79.01 Time Spent (min) 15 Assessment & Plan Assessment & Plan (1) Current use of anticoagulant therapy: Code(s): Z79.01 - [facility] (current) use of anticoagulants Category: Medical
== END 2023-09-28 15:28 | disposition home or self-care (01) ==
LOC: HO.ACS 15:14
PROVIDERS: PCP Physician Assistant; Visit Provider Internal Medicine
DX: Z79.01 Long term (current) use of anticoagulants (principal)

== ENCOUNTER → 2023-09-28 15:14 | Outpatient (BNVA) | payer OTHER, MEDICAID, SELFPAY | PROVIDERS: PCP Physician Assistant; Visit Provider Internal Medicine | DX: I26.99 Other pulmonary embolism without acute cor pulmonale (principal); Z51.81 Encounter for therapeutic drug level monitoring; Z79.01 Long term (current) use of anticoagulants | CPT/HCPCS: 85610; 99211 ==

== ENCOUNTER 2023-10-12 14:51 | Outpatient (AMB) | payer OTHER, MEDICAID, SELFPAY ==
[2023-10-12 15:07] LABS: Prothrombin Time Whole Bld POC 26.9 sec (11.1-13.5); ~PT, ~INR - Anti Coag Clinic 2.2 (0.9-1.1)
--- NOTE | 2023-10-12 15:17 | MHC.OFFVISCO ---
Intake Intake Visit Reasons: Anticoagulation Allergies rituximab [From Rituxan] Allergy (Severe, Verified 10/12/23 14:52) Anaphylaxis cephalexin [From Keflex] Allergy (Unknown, Verified 10/12/23 14:52) RED+ITCHY,RASH Cephalosporins [CEPHALOSPORINS] Allergy (Unknown, Verified 10/12/23 14:52) RED+ITCHY Sulfa (Sulfonamide Antibiotics) [SULFA(SULFONAMIDE ANTIBIOTICS)] Allergy (Unknown, Verified 10/12/23 14:52) RED+ITCHY retuxin Adverse Reaction (Severe, Uncoded 10/12/23 14:52) Abdominal Pain Medication List - Last Reconciled 10/12/23 by Jessica Leary RN atorvastatin 20 mg PO BEDTIME 30 days calcitriol 0.25 mcg PO DAILY clobetasol 0.05% 1 appl topical DAILY erythromycin 1 appl ophthalmic (eye) DAILY 15 days fluocinonide 0.05% appl topical gabapentin 200 mg (2 x 100 mg) PO DAILY 30 days levothyroxine 100 mcg PO DAILY lisinopril 2.5 mg PO DAILY loratadine 10 mg PO DAILY 14 days magnesium oxide 250 mg PO BID prednisone Starting October 04, take 3 tabs daily for 1 month then remain on 2 tabs daily sodium bicarbonate 650 mg PO BID warfarin 5 mg See Protocol PO DAILY Nursing Note INR: 2.2 in therapeutic range Medications and supplements reviewed- no changes Pt started special smoothie recommended by a emergency room orderly with fruits and vegetables and spices - 4 smoothies / week that she makes herself. She needs to have 3 front teeth pulled because they are so loose, she may start Vit D3 K2 to help draw calcium into the bones to strengthen her teeth - but becuase she just started the smoothies she will wait. Date of extractions to be determined, but because she is having 3 teeth pulled - she may need to hold warfarin the statndard 5 days and bridge with lovenox because her INR values can be labile at times with her lupus- plus starting on new smoothies. pt will lovenox bridge orders Denies any signs and symptoms of bleeding or bruising or clotting. Bleeding, bruising, clotting discussed Nutritional guidance given Dose: keep same dose for now 5mg x 2 days/ 2.5mg x 2 days F/U INR: 2 weeks Patient verbalizes understanding of instructions given will send this msg to PCP for review and lovenox orders- pt states she thinks her last weight was 110-111 lbs. Anti-Coag Initial Assessment Social Hx Patient Tobacco Use Status: Former Tobacco user Quit Date: 03/03/22 alcohol intake: former Alcohol intake frequency: does not drink Coding Level of Care Code Est Patient Level 1 Diagnoses Current use of anticoagulant therapy Z79.01 Assessment & Plan Assessment & Plan (1) Current use of anticoagulant therapy: Code(s): Z79.01 - [facility] (current) use of anticoagulants Category: Medical
== END 2023-10-12 15:26 | disposition home or self-care (01) ==
LOC: HO.ACS 14:51
PROVIDERS: PCP Physician Assistant; Visit Provider Internal Medicine
DX: Z79.01 Long term (current) use of anticoagulants (principal)

== ENCOUNTER → 2023-10-12 14:51 | Outpatient (BNVA) | payer OTHER, MEDICAID, SELFPAY | PROVIDERS: PCP Physician Assistant; Visit Provider Internal Medicine | DX: I26.99 Other pulmonary embolism without acute cor pulmonale (principal); Z51.81 Encounter for therapeutic drug level monitoring; Z79.01 Long term (current) use of anticoagulants | CPT/HCPCS: 85610; 99211 ==

== ENCOUNTER 2023-10-26 15:03 | Outpatient (AMB) | payer OTHER, MEDICAID, SELFPAY ==
[2023-10-26 15:33] LABS: Prothrombin Time Whole Bld POC 22.5 sec (11.1-13.5); ~PT, ~INR - Anti Coag Clinic 1.9 (0.9-1.1)
--- NOTE | 2023-10-26 15:46 | MHC.OFFVISCO ---
Intake Intake Visit Reasons: Anticoagulation Allergies rituximab [From Rituxan] Allergy (Severe, Verified 10/26/23 15:03) Anaphylaxis cephalexin [From Keflex] Allergy (Unknown, Verified 10/26/23 15:03) RED+ITCHY,RASH Cephalosporins [CEPHALOSPORINS] Allergy (Unknown, Verified 10/26/23 15:03) RED+ITCHY Sulfa (Sulfonamide Antibiotics) [SULFA(SULFONAMIDE ANTIBIOTICS)] Allergy (Unknown, Verified 10/26/23 15:03) RED+ITCHY retuxin Adverse Reaction (Severe, Uncoded 10/26/23 15:03) Abdominal Pain Medication List - Last Reconciled 10/26/23 by Joann Herbert RN [4Life transfer factor PO BID] atorvastatin 20 mg PO BEDTIME 30 days calcitriol 0.25 mcg PO DAILY clobetasol 0.05% 1 appl topical DAILY enoxaparin (Lovenox) 60 mg (0.6 mL) subcut Q12H 5 days erythromycin 1 appl ophthalmic (eye) DAILY 15 days fluocinonide 0.05% appl topical gabapentin 200 mg (2 x 100 mg) PO DAILY 30 days [KBU PO BID] levothyroxine 100 mcg PO DAILY lisinopril 2.5 mg PO DAILY loratadine 10 mg PO DAILY 14 days magnesium oxide 250 mg PO BID prednisone Starting October 04, take 3 tabs daily for 1 month then remain on 2 tabs daily [Renuvo PO BID] sodium bicarbonate 650 mg PO BID [Super Detox PO] warfarin 5 mg See Protocol PO DAILY Nursing Note Amb to [facility] feeling ok Medications and supplements reviewed, pt started on 10/21 4 new natural supplements for her LUPUS and Kidneys 4Lifetransfer, KBU, Renuvo, and Super Detox- ingredients not available at this time (pt took picture of front of bottles only) EMAR updated pt also indicates that she is making smoothies with assorted fruits veggies and tumeric pt also scheduled for 3 teeth extractions on 11/12- see also compose note from PCP Declan Sanchez Denies any unusual signs and symptoms of bruising, bleeding Denies any new Chest pain, SOB, or clotting INR: 1.9 below therapeutic range Nutritional guidance given:no greens this weekend then balance greens and reds in diet Dose: pt takes warfarin in am, already took today, will increase tomorrow from 2.5mg to 5mg and Sunday usual 5mg will take 2.5mg the resume usual dosing until hold for dental; F/U INR: 4/4 and will review bridging instructions- await to hear from PCP regarding post procedure bridging pt to also bring in bottles of new supplements or pictures of their ingredients Patient verbalizes understanding of instructions given with accurate read back/ teach back of dosing Anti-Coag Initial Assessment Social Hx Patient Tobacco Use Status: Former Tobacco user Quit Date: 03/03/22 alcohol intake: former Alcohol intake frequency: does not drink Coding Level of Care Code Est Patient Level 2 Diagnoses Current use of anticoagulant therapy Z79.01 Time Spent (min) 30 Results AMB INR Fingerstick AMB INR Fingerstick 1.9 Last Edit by Joann Herbert RN on 10/26/23 15:27 interface failure Assessment & Plan Assessment & Plan (1) Current use of anticoagulant therapy: Code(s): 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
== END 2023-10-26 15:55 | disposition home or self-care (01) ==
LOC: HO.ACS 15:03
PROVIDERS: PCP Physician Assistant; Visit Provider Internal Medicine
DX: Z79.01 Long term (current) use of anticoagulants (principal)

== ENCOUNTER → 2023-10-26 15:03 | Outpatient (BNVA) | payer OTHER, MEDICAID, SELFPAY | PROVIDERS: PCP Physician Assistant; Visit Provider Internal Medicine | DX: I26.99 Other pulmonary embolism without acute cor pulmonale (principal); Z51.81 Encounter for therapeutic drug level monitoring; Z79.01 Long term (current) use of anticoagulants | CPT/HCPCS: 85610; 99212 ==

== ENCOUNTER 2023-11-08 15:20 | Outpatient (AMB) | payer OTHER, MEDICAID, SELFPAY ==
[2023-11-08 15:29] LABS: Prothrombin Time Whole Bld POC 31.6 sec (11.1-13.5); ~PT, ~INR - Anti Coag Clinic 2.6 (0.9-1.1)
--- NOTE | 2023-11-08 15:50 | MHC.OFFVISCO ---
Intake Intake Visit Reasons: Anticoagulation Allergies rituximab [From Rituxan] Allergy (Severe, Verified 11/08/23 15:21) Anaphylaxis cephalexin [From Keflex] Allergy (Unknown, Verified 11/08/23 15:21) RED+ITCHY,RASH Cephalosporins [CEPHALOSPORINS] Allergy (Unknown, Verified 11/08/23 15:21) RED+ITCHY Sulfa (Sulfonamide Antibiotics) [SULFA(SULFONAMIDE ANTIBIOTICS)] Allergy (Unknown, Verified 11/08/23 15:21) RED+ITCHY retuxin Adverse Reaction (Severe, Uncoded 11/08/23 15:21) Abdominal Pain Medication List - Last Reconciled 11/08/23 by Jessica Leary RN [4Life transfer factor PO BID] atorvastatin 20 mg PO BEDTIME 30 days calcitriol 0.25 mcg PO DAILY clobetasol 0.05% 1 appl topical DAILY enoxaparin (Lovenox) 60 mg See Protocol subcut Q12H 5 days erythromycin 1 appl ophthalmic (eye) DAILY 15 days fluocinonide 0.05% appl topical gabapentin 200 mg (2 x 100 mg) PO DAILY 30 days [KBU PO BID] levothyroxine 100 mcg PO DAILY lisinopril 2.5 mg PO DAILY loratadine 10 mg PO DAILY 14 days magnesium oxide 250 mg PO BID prednisone Starting October 04, take 3 tabs daily for 1 month then remain on 2 tabs daily [Renuvo PO BID] sodium bicarbonate 650 mg PO BID [Super Detox PO] warfarin 5 mg See Protocol PO DAILY Nursing Note INR: 2.6 in therapeutic range Medications and supplements reviewed INR IS 2.6 - STOP WARFARIN TOMORROW MORNING PER MD ORDERS, THEN START LOVENOX SUNDAY EVENING THEN TWICE A DAY 12 HOURS APART(or per md), YOUR LAST DOSE OF LOVENOX IS Sunday, THEN Sunday IF OK - NO BLEEDING RESUME WARFARIN Sunday, THEN RESUME LOVNEOX SUN MORNINg EVERY 12 HOURS OR PER MD ORDERS, WILL CHK if RENAL DOSE is required Denies any signs and symptoms of bleeding or bruising or clotting. Bleeding, bruising, clotting discussed Nutritional guidance given Dose: already took today's dose then hold per md for extraction then resume when able or per md, 2.5mg Sun/ 5mg sun/ 5mg then resume usual dose 5mg x 2 days/ 2.5mg x 5 days F/U INR: 11/16/23 post extraction, Patient verbalizes understanding of instructions given Anti-Coag Initial Assessment Social Hx Patient Tobacco Use Status: Former Tobacco user Quit Date: 03/03/22 alcohol intake: former Alcohol intake frequency: does not drink Coding Level of Care Code Est Patient Level 1 Diagnoses Current use of anticoagulant therapy Z79.01 Results AMB INR Fingerstick AMB INR Fingerstick 2.6 Last Edit by Jessica Leary RN on 11/08/23 15:31 manual entry Assessment & Plan Assessment & Plan (1) Current use of anticoagulant therapy: Code(s): 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
== END 2023-11-08 15:56 | disposition home or self-care (01) ==
LOC: HO.ACS 15:20
PROVIDERS: PCP Physician Assistant; Visit Provider Internal Medicine
DX: Z79.01 Long term (current) use of anticoagulants (principal)

== ENCOUNTER → 2023-11-08 15:20 | Outpatient (BNVA) | payer OTHER, MEDICAID, SELFPAY | PROVIDERS: PCP Physician Assistant; Visit Provider Internal Medicine | DX: I26.99 Other pulmonary embolism without acute cor pulmonale (principal); Z51.81 Encounter for therapeutic drug level monitoring; Z79.01 Long term (current) use of anticoagulants | CPT/HCPCS: 85610; 99211 ==

== ENCOUNTER 2023-11-13 08:57 | Outpatient (AMB) | payer OTHER, MEDICAID, SELFPAY ==
[2023-11-13 09:41] VITALS: BP 114/72; PULSE 80; TEMP 36.6; O2SAT 96; BMI 24.2
--- NOTE | 2023-11-13 09:41 | AM.OFFWIN_ITS ---
Intake Vital Signs 11/13/23 09:41 Height 5 ft Weight 124 lb BMI 24.2 BP 114/72 Blood Pressure Location Lt brachial Position Sitting Pulse 80 Pulse Source Pulse Oximeter Temp 97.8 F Temp Source Temporal Artery Scan Pulse Oximetry (%) 96 Oxygen Delivery Method Room Air Intake Visit Reasons: EP sore throat/ears/sinus (lobby) Intake Note: pt is here today for sore throat ears sinus started 1 week ago Patient Tobacco Use Status: Former Tobacco user Quit Date: 03/03/22 Allergies rituximab [From Rituxan] Allergy (Severe, Verified 11/13/23 10:38) Anaphylaxis cephalexin [From Keflex] Allergy (Unknown, Verified 11/13/23 10:38) RED+ITCHY,RASH Cephalosporins [CEPHALOSPORINS] Allergy (Unknown, Verified 11/13/23 10:38) RED+ITCHY Sulfa (Sulfonamide Antibiotics) [SULFA(SULFONAMIDE ANTIBIOTICS)] Allergy (Unknown, Verified 11/13/23 10:38) RED+ITCHY retuxin Adverse Reaction (Severe, Uncoded 11/13/23 10:38) Abdominal Pain Medication List - Last Reconciled 11/13/23 by RAYMON Spain [4Life transfer factor PO BID] atorvastatin 20 mg PO BEDTIME 30 days calcitriol 0.25 mcg PO DAILY clobetasol 0.05% 1 appl topical DAILY enoxaparin (Lovenox) 60 mg See Protocol subcut Q12H 5 days erythromycin 1 appl ophthalmic (eye) DAILY 15 days fluocinonide 0.05% appl topical gabapentin 200 mg (2 x 100 mg) PO DAILY 30 days [KBU PO BID] levothyroxine 100 mcg PO DAILY lisinopril 2.5 mg PO DAILY loratadine 10 mg PO DAILY 14 days magnesium oxide 250 mg PO BID prednisone Starting October 04, take 3 tabs daily for 1 month then remain on 2 tabs daily [Renuvo PO BID] sodium bicarbonate 650 mg PO BID [Super Detox PO] warfarin 5 mg See Protocol PO DAILY Do you need a note to return to daycare/school/sports/work: No HPI HPI Comments History of Present Illness Details Patient is a 58-year-old woman in today for a sick visit. Patient has a past medical history significant for SLE, with stage 4 chronic kidney disease. Patient states that she has developed symptoms of sinus pain, sore throat, ear fullness, for the past 7 days. Patient states she did have a fever, that resolved 2 days prior to this appointment. Patient denies chest pain, shortness a breath, nausea, dizziness, vomiting, diarrhea. Strep in office was negative. Will also obtain URI swab. Patient has utilize doxycycline in the past with good effect FOR[facility]LY [facility], [facility] Medical History Prediabetes SLE glomerulonephritis syndrome History of pulmonary embolism Vitamin D deficiency Hypertriglyceridemia Hypothyroidism Surgical History Hx of tubal ligation Family History Father Family history unknown Mother Hypertension Diabetes Deep vein thrombosis CVA (cerebral vascular accident) Brother CVA (cerebral vascular accident), Onset Age: 48 Brother CVA (cerebral vascular accident), Onset Age: 38 Social History Household Members: None Housing: House Alcohol intake: former Patient Tobacco Use Status: Former Tobacco user Quit Date: 03/03/22 e-Cigarette/Vaping Use: Never Used service: No Current occupational status: employed 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 Cognitive needs: No Hearing needs: No Vision needs: No Review of Systems Const All systems reviewed & are unremarkable except as noted in HPI and below ENT Denies dizziness, Reports otalgia, Reports nasal congestion, Reports sinus pain, Reports sinus pressure and Reports sore throat Card Denies chest pain and Denies dyspnea Resp Denies dyspnea GI Denies diarrhea, Denies nausea and Denies vomiting Neuro Denies dizziness Physical Exam Vital Signs: Last Vital Signs Temp 97.8 F 11/13/23 09:41 Pulse 80 11/13/23 09:41 BP 114/72 11/13/23 09:41 Pulse Ox 96 11/13/23 09:41 Oxygen Delivery Method Room Air 11/13/23 09:41 BMI result Body Mass Index 24.2 Vital signs reviewed stable. Const Other: Appearance: Alert.? Oriented X3.? No acute distress.? Head: Normocephalic, atraumatic, Eyes: Pupils equal, round and reactive to light.? ENT: Pharynx erythema. No exudate. TM intact and pearly saucedo. + sinus tenderness. Neck: Normal inspection.? Neck supple.? CVS: Normal heart rate and rhythm.? Pulses normal.? Respiratory: No respiratory distress.? Breath sounds normal.? Neuro: Oriented X 3.? No motor deficit.? No sensory deficit. CN 2-12 intact Results AMB Rapid Strep AMB Rapid Strep Negative Last Edit by Marilia Krishnamurthy MA on 11/13/23 10:19 Results Reviewed Results Reviewed: Laboratory Last Values Strep Scn Rapid Clinic Negative 11/13/23 10:19 Assessment & Plan Assessment & Plan (1) Upper respiratory infection: Comment: Will obtain URI swab in office. Patient should drink plenty of fluids. Patient has been cautioned against using [id number]-[id number] medication due to chronic kidney disease. Code(s): J06.9 - Acute upper respiratory infection, unspecified Qualifiers: URI type: unspecified URI Qualified Code(s): J06.9 - Acute upper respiratory infection, unspecified Plan: Patient has been educated on signs of worsening symptoms when to report back to the walk-in or when to present to the ED (2) Sinusitis: Comment: Patient will be given doxycycline. Code(s): J32.9 - Chronic sinusitis, unspecified Qualifiers: Sinusitis location: other Chronicity: acute Recurrence: non-recurrent Qualified Code(s): J01.80 - Other acute sinusitis Plan: Take your medications as prescribed. If you were prescribed antibiotics today, it is important that you take your medication to their entirety, do not skip any doses, do not finish them early. Follow-up with your primary care provider this week. Return to the emergency department with new or worsening symptoms. Such as fevers, chills, chest pain, shortness of breath, nausea, vomiting, dizziness, headache, vision changes, lethargy In case of emergency call 911 Plan Follow-up with PCP Orders: Orders SARS-CoV2/FLU/RSV Today J06.9 - Acute upper respiratory infection, unspecified Medications: New 2 doxycycline hyclate 100 mg PO BID 14 tabs 0RF Coding Level of Care Code Est Pt Level 3 (76300) Diagnoses Upper respiratory tract infection, unspecified type J06.9 URI type: unspecified URI Acute non-recurrent sinusitis of other sinus J01.80 Sinusitis location: other Chronicity: acute Recurrence: non-recurrent Time Spent (min) 26
== END 2023-11-13 10:43 | disposition home or self-care (01) ==
PROVIDERS: PCP Physician Assistant; Visit Provider Nurse Practitioner Primary Care
DX: J06.9 Acute upper respiratory infection, unspecified (principal); J01.80 Other acute sinusitis
CPT/HCPCS: 99213

== ENCOUNTER → 2023-11-13 10:46 | Outpatient (BNVA) | payer OTHER, MEDICAID, SELFPAY | PROVIDERS: PCP Physician Assistant; Visit Provider Internal Medicine ==

== ENCOUNTER 2023-11-13 13:30 | Outpatient (REF) | payer OTHER, MEDICAID, SELFPAY ==
[2023-11-13 14:33] LABS: Influenza A PCR NEGATIVE (Negative); Influenza B PCR NEGATIVE (Negative); Resp Syncy Virus RNA Qual PCR NEGATIVE (Negative); SARS COV2 PCR INHOUSE NEGATIVE (Negative)
== END 2023-11-13 13:31 | disposition home or self-care (01) ==
LOC: HO.LNP 13:30
PROVIDERS: Visit Provider Nurse Practitioner Primary Care
DX: Z11.52 Encounter for screening for COVID-19 (principal); J06.9 Acute upper respiratory infection, unspecified
CPT/HCPCS: 0241U

== ENCOUNTER 2023-11-15 14:59 | Outpatient (AMB) | payer OTHER, MEDICAID, SELFPAY ==
[2023-11-15 15:10] LABS: ~PT, ~INR - Anti Coag Clinic 1.3 (0.9-1.1)
--- NOTE | 2023-11-15 15:51 | MHC.OFFVISCO ---
Intake Intake Visit Reasons: Anticoagulation Allergies rituximab [From Rituxan] Allergy (Severe, Verified 11/15/23 15:05) Anaphylaxis cephalexin [From Keflex] Allergy (Unknown, Verified 11/15/23 15:05) RED+ITCHY,RASH Cephalosporins [CEPHALOSPORINS] Allergy (Unknown, Verified 11/15/23 15:05) RED+ITCHY Sulfa (Sulfonamide Antibiotics) [SULFA(SULFONAMIDE ANTIBIOTICS)] Allergy (Unknown, Verified 11/15/23 15:05) RED+ITCHY retuxin Adverse Reaction (Severe, Uncoded 11/13/23 10:38) Abdominal Pain Medication List - Last Reconciled 11/15/23 by Stephanie Tran RN [4Life transfer factor PO BID] atorvastatin 20 mg PO BEDTIME 30 days calcitriol 0.25 mcg PO DAILY clobetasol 0.05% 1 appl topical DAILY doxycycline hyclate 100 mg PO BID enoxaparin (Lovenox) 60 mg See Protocol subcut Q12H 5 days erythromycin 1 appl ophthalmic (eye) DAILY 15 days fluocinonide 0.05% appl topical gabapentin 200 mg (2 x 100 mg) PO DAILY 30 days [KBU PO BID] levothyroxine 100 mcg PO DAILY lisinopril 2.5 mg PO DAILY loratadine 10 mg PO DAILY 14 days magnesium oxide 250 mg PO BID prednisone Starting October 04, take 3 tabs daily for 1 month then remain on 2 tabs daily [Renuvo PO BID] sodium bicarbonate 650 mg PO BID [Super Detox PO] warfarin 5 mg See Protocol PO DAILY Nursing Note PT'S EXTRACTIONS SCHED FOR 11/12 WERE CANCELLED DUE TO URI AND COURSE OF DOXYCYCLINE STARTED ON 11/12. PT.HAD BEEN ON A 4 DAYS WARFARIN HOLD AND BID LOVENOX. SHE RESTARTED THE WARFARIN AT [facility] ON 11/12 WITH THE LOVENOX. EXTRACTIONS ON HOLD FOR NOW. BOOST WARFARIN TO 5M[facility] TODAY,BID LOVENOX AND RECHECK INR TOMORROW. WILL INCREASE REDS AND AVOID GREENS. PT.VERB.GOOD UNDERSTANDING OF DOSING INSTR. 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
== END 2023-11-15 15:57 | disposition home or self-care (01) ==
LOC: HO.ACS 14:59
PROVIDERS: PCP Physician Assistant; Visit Provider Internal Medicine
DX: Z79.01 Long term (current) use of anticoagulants (principal)

== ENCOUNTER → 2023-11-15 14:59 | Outpatient (BNVA) | payer OTHER, MEDICAID, SELFPAY | PROVIDERS: PCP Physician Assistant; Visit Provider Internal Medicine | DX: I26.99 Other pulmonary embolism without acute cor pulmonale (principal); Z51.81 Encounter for therapeutic drug level monitoring; Z79.01 Long term (current) use of anticoagulants | CPT/HCPCS: 85610; 99211 ==

== ENCOUNTER 2023-11-16 15:32 | Outpatient (AMB) | payer OTHER, MEDICAID, SELFPAY ==
[2023-11-16 15:39] LABS: Prothrombin Time Whole Bld POC 19.9 sec (11.1-13.5); ~PT, ~INR - Anti Coag Clinic 1.7 (0.9-1.1)
--- NOTE | 2023-11-16 15:52 | MHC.OFFVISCO ---
Intake Intake Visit Reasons: Anticoagulation Allergies rituximab [From Rituxan] Allergy (Severe, Verified 11/16/23 15:33) Anaphylaxis cephalexin [From Keflex] Allergy (Unknown, Verified 11/16/23 15:33) RED+ITCHY,RASH Cephalosporins [CEPHALOSPORINS] Allergy (Unknown, Verified 11/16/23 15:33) RED+ITCHY Sulfa (Sulfonamide Antibiotics) [SULFA(SULFONAMIDE ANTIBIOTICS)] Allergy (Unknown, Verified 11/16/23 15:33) RED+ITCHY retuxin Adverse Reaction (Severe, Uncoded 11/16/23 15:33) Abdominal Pain Medication List - Last Reconciled 11/16/23 by Jessica Leary RN [4Life transfer factor PO BID] atorvastatin 20 mg PO BEDTIME 30 days calcitriol 0.25 mcg PO DAILY clobetasol 0.05% 1 appl topical DAILY doxycycline hyclate 100 mg PO BID enoxaparin (Lovenox) 60 mg See Protocol subcut Q12H 5 days erythromycin 1 appl ophthalmic (eye) DAILY 15 days fluocinonide 0.05% appl topical gabapentin 200 mg (2 x 100 mg) PO DAILY 30 days [KBU PO BID] levothyroxine 100 mcg PO DAILY lisinopril 2.5 mg PO DAILY loratadine 10 mg PO DAILY 14 days magnesium oxide 250 mg PO BID prednisone Starting October 04, take 3 tabs daily for 1 month then remain on 2 tabs daily [Renuvo PO BID] sodium bicarbonate 650 mg PO BID [Super Detox PO] warfarin 5 mg See Protocol PO DAILY Nursing Note INR 1.7 out of therapeutic range Medications and supplements reviewed Patient status: has URI and sore throat, was started on doxycycline and has 2-3 days left - can raise the INR, states she is feeling much better warfarin was on hold for dental extractions but procedure was canceled due to URI she resumed warfarin with booster doses, INR was 1.3 yesterday Medications or supplements: antbx for URI Diet: good- drinking herbal tea Denies any signs and symptoms of bleeding or clotting or unusual bruising Bleeding, bruising, clotting discussed Nutritional guidance given: avoid greens x 3 days then resume usual diet Dose: she took 5mg this am , cont lovenox dosing once daily per md orders unless bruising, warfarin 2.5mg sat sun sun, f/u INR sunday11/20/23 ( office closed11/19/23 F/U INR Date : 11/20/23?? Patient verbalizing understanding of instructions given. 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
== END 2023-11-16 15:59 | disposition home or self-care (01) ==
LOC: HO.ACS 15:32
PROVIDERS: PCP Physician Assistant; Visit Provider Internal Medicine
DX: Z79.01 Long term (current) use of anticoagulants (principal)

== ENCOUNTER → 2023-11-16 15:32 | Outpatient (BNVA) | payer OTHER, MEDICAID, SELFPAY | PROVIDERS: PCP Physician Assistant; Visit Provider Internal Medicine | DX: I26.99 Other pulmonary embolism without acute cor pulmonale (principal); Z51.81 Encounter for therapeutic drug level monitoring; Z79.01 Long term (current) use of anticoagulants | CPT/HCPCS: 85610; 99211 ==

== ENCOUNTER 2023-11-20 14:55 | Outpatient (AMB) | payer OTHER, MEDICAID, SELFPAY ==
[2023-11-20 15:11] LABS: Prothrombin Time Whole Bld POC 27.7 sec (11.1-13.5); ~PT, ~INR - Anti Coag Clinic 2.3 (0.9-1.1)
--- NOTE | 2023-11-20 15:15 | MHC.OFFVISCO ---
Intake Intake Visit Reasons: Anticoagulation Allergies rituximab [From Rituxan] Allergy (Severe, Verified 11/20/23 15:06) Anaphylaxis cephalexin [From Keflex] Allergy (Unknown, Verified 11/20/23 15:06) RED+ITCHY,RASH Cephalosporins [CEPHALOSPORINS] Allergy (Unknown, Verified 11/20/23 15:06) RED+ITCHY Sulfa (Sulfonamide Antibiotics) [SULFA(SULFONAMIDE ANTIBIOTICS)] Allergy (Unknown, Verified 11/20/23 15:06) RED+ITCHY retuxin Adverse Reaction (Severe, Uncoded 11/20/23 15:06) Abdominal Pain Medication List - Last Reconciled 11/20/23 by Joann Herbert RN [4Life transfer factor PO BID] atorvastatin 20 mg PO BEDTIME 30 days calcitriol 0.25 mcg PO DAILY clobetasol 0.05% 1 appl topical DAILY enoxaparin (Lovenox) 60 mg See Protocol subcut Q12H 5 days erythromycin 1 appl ophthalmic (eye) DAILY 15 days fluocinonide 0.05% appl topical gabapentin 200 mg (2 x 100 mg) PO DAILY 30 days [KBU PO BID] levothyroxine 100 mcg PO DAILY lisinopril 2.5 mg PO DAILY loratadine 10 mg PO DAILY 14 days magnesium oxide 250 mg PO BID prednisone Starting October 04, take 3 tabs daily for 1 month then remain on 2 tabs daily [Renuvo PO BID] sodium bicarbonate 650 mg PO BID [Super Detox PO] warfarin 5 mg See Protocol PO DAILY Nursing Note Amb to [facility], sts never had teeth extracted due to sinus infection completed doxycycline over weekend completed lovenox LD yesterday, none today INR: 2.3 in therapeutic range Medications and supplements reviewed as noted above No other changes in health, diet, medications, or supplements, Denies any signs and symptoms of bleeding or bruising or clotting. Nutritional guidance given, balance greens and reds in diet, continue with greens as delayed rise expected from doxycycline Dose: continue dosing as per sheet (pt took 5mg on Sunday vs written 2.5, dosing sheet adjusted 95mg x 2 days and 2.5mg 5 days, no more lovenox at this time F/U INR: 1 week Patient verbalizes understanding of instructions given Anti-Coag Initial Assessment Social Hx Patient Tobacco Use Status: Former Tobacco user Quit Date: 03/03/22 alcohol intake: former Alcohol intake frequency: does not drink Coding Level of Care Code Est Patient Level 1 Diagnoses Current use of anticoagulant therapy Z79.01 Time Spent (min) 15 Assessment & Plan Assessment & Plan (1) Current use of anticoagulant therapy: Code(s): 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
== END 2023-11-20 15:24 | disposition home or self-care (01) ==
LOC: HO.ACS 14:55
PROVIDERS: PCP Physician Assistant; Visit Provider Internal Medicine
DX: Z79.01 Long term (current) use of anticoagulants (principal)

== ENCOUNTER → 2023-11-20 14:55 | Outpatient (BNVA) | payer OTHER, MEDICAID, SELFPAY | PROVIDERS: PCP Physician Assistant; Visit Provider Internal Medicine | DX: I26.99 Other pulmonary embolism without acute cor pulmonale (principal); Z51.81 Encounter for therapeutic drug level monitoring; Z79.01 Long term (current) use of anticoagulants | CPT/HCPCS: 85610; 99211 ==

== ENCOUNTER 2023-11-27 14:51 | Outpatient (AMB) | payer OTHER, MEDICAID, SELFPAY ==
--- NOTE | 2023-11-27 15:02 | MHC.OFFVISCO ---
Intake Intake Visit Reasons: Anticoagulation Allergies rituximab [From Rituxan] Allergy (Severe, Verified 11/27/23 14:59) Anaphylaxis cephalexin [From Keflex] Allergy (Unknown, Verified 11/27/23 14:59) RED+ITCHY,RASH Cephalosporins [CEPHALOSPORINS] Allergy (Unknown, Verified 11/27/23 14:59) RED+ITCHY Sulfa (Sulfonamide Antibiotics) [SULFA(SULFONAMIDE ANTIBIOTICS)] Allergy (Unknown, Verified 11/27/23 14:59) RED+ITCHY retuxin Adverse Reaction (Severe, Uncoded 11/27/23 14:59) Abdominal Pain Medication List - Last Reconciled 11/27/23 by Shana Allen RN [4Life transfer factor PO BID] atorvastatin 20 mg PO BEDTIME 30 days calcitriol 0.25 mcg PO DAILY clobetasol 0.05% 1 appl topical DAILY erythromycin 1 appl ophthalmic (eye) DAILY 15 days fluocinonide 0.05% appl topical gabapentin 200 mg (2 x 100 mg) PO DAILY 30 days [KBU PO BID] levothyroxine 100 mcg PO DAILY lisinopril 2.5 mg PO DAILY loratadine 10 mg PO DAILY 14 days magnesium oxide 250 mg PO BID prednisone Starting October 04, take 3 tabs daily for 1 month then remain on 2 tabs daily [Renuvo PO BID] sodium bicarbonate 650 mg PO BID [Super Detox PO] warfarin 5 mg See Protocol PO DAILY Nursing Note INR: 2.1- in therapeutic range of 2-3 Medications and supplements reviewed- no changes No changes in health, diet, medications, or supplements, Denies any signs and symptoms of bleeding or bruising or clotting. Bleeding, bruising, clotting discussed Nutritional guidance given Dose: 5nf x 2m 2,5ng x 5 F/U INR: 2 weeks Patient verbalizes understanding of instructions given pt states prev hold for dental extraction but became ill and needs to reschedule. 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
[2023-11-27 15:04] LABS: Prothrombin Time Whole Bld POC 25.3 sec (11.1-13.5); ~PT, ~INR - Anti Coag Clinic 2.1 (0.9-1.1)
== END 2023-11-27 15:08 | disposition home or self-care (01) ==
LOC: HO.ACS 14:51
PROVIDERS: PCP Physician Assistant; Visit Provider Internal Medicine
DX: Z79.01 Long term (current) use of anticoagulants (principal)

== ENCOUNTER → 2023-11-27 14:51 | Outpatient (BNVA) | payer OTHER, MEDICAID, SELFPAY | PROVIDERS: PCP Physician Assistant; Visit Provider Internal Medicine | DX: I26.99 Other pulmonary embolism without acute cor pulmonale (principal); Z51.81 Encounter for therapeutic drug level monitoring; Z79.01 Long term (current) use of anticoagulants | CPT/HCPCS: 85610; 99211 ==

== ENCOUNTER 2023-12-05 15:45 | Outpatient (REF) | payer OTHER, MEDICAID, SELFPAY ==
[2023-12-05 16:09] LABS: MANUAL DIFF FLAG NO
[2023-12-05 17:29] LABS: Basophils Percent Auto 0.4 % (0-2); Eosinophils Absolute Auto 0.2 X10*3/uL (0.0-0.4); Hematocrit 29.7 % (37.0-47.0); Hemoglobin 9.6 g/dl (12.0-16.0); Imm Gran Abs Auto 0.03 X10*3/uL (0.00-0.03); Imm Gran Pct Auto 0.7 % (0.0-0.4); Lymphocytes Absolute Auto 1.2 X10*3/uL (1.2-4.9); Lymphocytes Percent Auto 26.3 % (20-40); Mean Corpuscular HGB Conc 32.3 g/dl (31.0-35.0); Mean Corpuscular Hemoglobin 30.2 pg (27.0-33.0); Mean Corpuscular Volume 93.4 fL (80.0-98.0); Mean Platelet Volume 10.7 fL (9.4-12.3); Monocytes Absolute Auto 0.6 X10*3/uL (0.1-1.2); Monocytes Percent Auto 12.4 % (2-11); Neutrophils Absolute Auto 2.5 x10*3/uL (2.0-8.3); Neutrophils Percent Auto 55.2 % (45-73); Platelet Count 265 X10*3/uL (160-400); Red Blood Count 3.18 X10*6/uL (4.20-5.50); Red Cell Distribution Width 12.2 % (11.0-16.0); White Blood Count 4.6 X10*3/uL (4.8-10.8)
[2023-12-05 17:56] LABS: Appearance Urine Clear; Color Urine Yellow; Glucose Urine UA Negative (Negative); Leukocyte Esterase Urine Trace (Negative); Nitrite Urine Negative (Negative); PH 6.5 (5.0-9.0); UMIC TRIGGER UA YES; Urine Blood Trace (Negative); Urine Ketones Negative (Negative); Urine Protein 300 (3+) mg/dL (Neg-Trace)
[2023-12-05 17:57] LABS: Alanine Aminotransferase 15 U/L (0-31); Albumin Level 3.8 g/dL (3.5-5.0); Alkaline Phosphatase 75 U/L (39-117); Anion Gap 12 (12-20); Aspartate Amino Transferase 22 U/L (5-31); Bilirubin Total 0.3 mg/dL (0.0-1.0); Blood Urea Nitrogen 45 mg/dL (9-16); Calcium 10.6 mg/dL (8.4-10.2); Carbon Dioxide 22 mmol/L (22-29); Chloride 109 mmol/L (96-108); Estimated Glomerular Filt Rate 18; Glucose Random 87 mg/dL (60-115); Potassium 4.3 mmol/L (3.3-5.1); Sodium 139 mmol/L (135-145); Total Protein 7.6 g/dL (6.5-8.0)
[2023-12-05 17:59] LABS: Bacteria Urine Trace (None Seen); Hyaline Casts Urine 0-2 /LPF (0-2); RBC Urine 0-2 /HPF (0-2); Squamous Epithelial Cell Urine 0-2 /HPF (0-2); WBC Urine 0-5 /HPF (0-5)
[2023-12-05 22:32] LABS: Creatinine Urine 64.14 mg/dL; Total Protein Urine Random 150 mg/dL (<12)
[2023-12-06 05:37] LABS: Parathyroid Hormone Intact 142.7 pg/mL (8.7-77.1)
== END 2023-12-05 15:46 | disposition home or self-care (01) ==
LOC: HO.LAB 15:45
PROVIDERS: PCP Physician Assistant; Visit Provider Internal Medicine Hypertension Specialist
DX: N05.9 Unspecified nephritic syndrome with unspecified morphologic changes (principal); N18.4 Chronic kidney disease, stage 4 (severe)
CPT/HCPCS: 36415; 80053; 81001; 82570; 83970; 84156; 85025

== ENCOUNTER 2023-12-10 15:22 | Outpatient (AMB) | payer OTHER, MEDICAID, SELFPAY ==
--- NOTE | 2023-12-10 15:22 | HO.NEPHOV ---
Vital Signs 12/10/23 15:36 Height 5 ft Weight 126 lb BMI 24.6 BP 118/70 Blood Pressure Location Lt brachial Position Sitting Pulse 77 Pulse Source Pulse Oximeter Pulse Oximetry (%) 96 Oxygen Delivery Method Room Air Intake Visit Reasons: CKD/ Confirmed Pick Up Man Required: No Accompanied by: Self / Same As Patient Allergies rituximab [From Rituxan] Allergy (Severe, Verified 12/10/23 15:37) Anaphylaxis cephalexin [From Keflex] Allergy (Unknown, Verified 12/10/23 15:37) RED+ITCHY,RASH Cephalosporins [CEPHALOSPORINS] Allergy (Unknown, Verified 12/10/23 15:37) RED+ITCHY Sulfa (Sulfonamide Antibiotics) [SULFA(SULFONAMIDE ANTIBIOTICS)] Allergy (Unknown, Verified 12/10/23 15:37) RED+ITCHY retuxin Adverse Reaction (Severe, Uncoded 11/27/23 14:59) Abdominal Pain HPI Comments Details: Philippe 58-year-old man with history of SLE. She has chronic kidney disease. In 2001, she had a kidney biopsy which showed membranous nephropathy. She was treated with Cytoxan and prednisone and obtain remission. She would relapsed again and was treated with mycophenolate followed by active but she did not tolerate these medications and she refused treatment. She did receive a dose of Rituxan in early August 2022 and subsequently did not want further treatment due to perceived side effects. 12/10/23: Doing well today Waiting for [facility] Medical History Prediabetes SLE glomerulonephritis syndrome History of pulmonary embolism Vitamin D deficiency Hypertriglyceridemia Hypothyroidism Surgical History Hx of tubal ligation Family History Father Family history unknown Mother Hypertension Diabetes Deep vein thrombosis CVA (cerebral vascular accident) Brother CVA (cerebral vascular accident), Onset Age: 48 Brother CVA (cerebral vascular accident), Onset Age: 38 Social History Household Members: None Housing: House Alcohol intake: former Patient Tobacco Use Status: Former Tobacco user Quit Date: 03/03/22 e-Cigarette/Vaping Use: Never Used service: No Current occupational status: employed 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 Cognitive needs: No Hearing needs: No Vision needs: No Physical Exam Vital Signs: Last Vital Signs Pulse 77 12/10/23 15:36 BP 118/70 12/10/23 15:36 Pulse Ox 96 12/10/23 15:36 Oxygen Delivery Method Room Air 12/10/23 15:36 BMI result Body Mass Index 24.6 Const General: cooperative, healthy appearing, no acute distress, well developed, alert and awake; No acute distress Orientation/consciousness: patient oriented x3 HEENT Other: NC/AT, no deformity Head: Yes normal to inspection, Yes normocephalic and Yes atraumatic Mouth: moist mucous membranes Eyes Other: Sclera anicteric, no exophthalmos, proptotis, chemosis or periorbital edema Pupils: Equal, round and reactive pupils present Neck Other: Trachea midline with full ROM. No thyromegaly, no palpable thyroid nodules, thyroid nontender to palpation. Neck: Yes no lymphadenopathy, Yes trachea midline and Yes supple Thyroid: Thyroid normal Resp Effort & Inspection: normal respiratory effort Auscultation: clear to auscultation bilaterally, no rales, no rhonchi and no wheezes Cardio Rate: regular rate Rhythm: regular rhythm Heart sounds: no gallops, no murmurs and no rubs GI Inspection: Yes normal to inspection and No distended Palpation (GI): Soft to palpation and nontender Auscultation: normal bowel sounds Skin Other: No Rashes General skin exam: no rashes or lesions noted Hair: normal Neuro General: patient oriented x3 Cranial nerves: Yes Equal, round and reactive pupils present Deep tendon reflexes (DTR's): Right brachioradialis reflex intensity grade: 2+ and Left brachioradialis reflex intensity grade: 2+ Extrem General: No edema Psych Other: Normal affect with clear speech Speech and movement: Normal speech and movement present Affect: normal affect Thought process: Normal thought process present Results Reviewed Nephrology Results: Hgb 9.6 g/dl (12.0-16.0) L 12/05/23 WBC 4.6 X10*3/uL (4.8-10.8) L 12/05/23 Plt Count 265 X10*3/uL (160-400) 12/05/23 Sodium 139 mmol/L (135-145) 12/05/23 Potassium 4.3 mmol/L (3.3-5.1) 12/05/23 Chloride 109 mmol/L (96-108) H 12/05/23 Carbon Dioxide 22 mmol/L (22-29) 12/05/23 BUN 45 mg/dL (9-16) H 12/05/23 Creatinine 2.75 mg/dL (0.5-1.4) H 12/05/23 Calcium 10.6 mg/dL (8.4-10.2) H 12/05/23 PTH Intact 142.7 pg/mL (8.7-77.1) H 12/05/23 Urine Protein 300 (3+) mg/dL (Neg-Trace) H 12/05/23 Urine Creatinine 64.14 mg/dL 12/05/23 Assessment & Plan Assessment & Plan (1) CKD (chronic kidney disease) stage 4, GFR 15-29 ml/min: Code(s): N18.4 - Chronic kidney disease, stage 4 (severe) Category: Medical Plan: Due to underlying lupus nephropathy. Renal function is relatively stable. No signs or symptoms of uremia. No absolute indication to start her on renal replacement therapy yet. 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 Mild anemia in the setting of lupus and CKD. No indication for Epogen yet. We will screen for secondary hyperparathyroidism. Maintain blood pressure less than 130/80. Continue to avoid nephrotoxic agents including NSAIDs. Hypercalcemia - Decrease Calcitriol - hold for a week and restart at [facility] ( 12/10/23) Decrease Calcium supplementation from 600mg BID to QD (2) Lupus (systemic lupus erythematosus): Comment: onset [id number] Treated with Cytoxan and prednisone Coumadin throughout Cyclosporin 2005 DC due to epigastric pain CellCept 2008 up titrated to 3 g daily, developed worsening proteinuria Rituximab 2 doses, 2 weeks apart 2010 Believes that she took hydroxychloroquine and discontinued it due to tinnitus ?! Benlysta 02/2012 was helpful especially for skin lesions. Discontinued due to loss of insurance Acthar gel 2016 took it for about a year inconsistently Repeat kidney biopsy 04/2022 showed class 3 and 5 nephritis. Received 1 dose of rituximab 08/2022 with some improvement Code(s): M32.9 - Systemic lupus erythematosus, unspecified Category: Medical Qualifiers: Systemic lupus erythematosus organ involvement: glomerular disease Systemic lupus erythematosus type: other Qualified Code(s): M32.14 - Glomerular disease in systemic lupus erythematosus (3) SLE glomerulonephritis syndrome: Comment: onset [id number] class 3 and class 5 nephritis, low C3, low C4 Repeat kidney biopsy 04/2022 showed class 3 and 5 nephritis. Received 1 dose of rituximab 08/2022 with some improvement Code(s): M32.14 - Glomerular disease in systemic lupus erythematosus Category: Medical Plan . Orders: Orders Parathyroid Hormone Intact 3 Months N18.4 - Chronic kidney disease, stage 4 (severe) Complete Blood Count Auto Diff 3 Months N18.30 - Chronic kidney disease, stage 3 unspecified, N18.4 - Chronic kidney disease, stage 4 (severe) Basic Metabolic Panel 3 Months N18.4 - Chronic kidney disease, stage 4 (severe) Coding Level of Care Code Est Pt Level 4 (46331) Diagnoses CKD (chronic kidney disease) stage 4, GFR 15-29 ml/min N18.4 Other systemic lupus erythematosus with glomerular disease M32.14 Systemic lupus erythematosus organ involvement: glomerular disease Systemic lupus erythematosus type: other SLE glomerulonephritis syndrome M32.14
[2023-12-10 15:36] VITALS: BP 118/70; PULSE 77; O2SAT 96; BMI 24.6
== END 2023-12-10 15:51 | disposition home or self-care (01) ==
PROVIDERS: PCP Physician Assistant; Visit Provider Internal Medicine Hypertension Specialist
DX: N18.4 Chronic kidney disease, stage 4 (severe) (principal); M32.14 Glomerular disease in systemic lupus erythematosus
CPT/HCPCS: 99214

== ENCOUNTER → 2023-12-10 15:22 | Outpatient (BNVA) | payer OTHER, MEDICAID, SELFPAY | PROVIDERS: PCP Physician Assistant; Visit Provider Internal Medicine Hypertension Specialist ==

== ENCOUNTER 2023-12-11 14:56 | Outpatient (AMB) | payer OTHER, MEDICAID, SELFPAY ==
--- NOTE | 2023-12-11 15:09 | MHC.OFFVISCO ---
Intake Intake Visit Reasons: Anticoagulation Allergies rituximab [From Rituxan] Allergy (Severe, Verified 12/11/23 15:04) Anaphylaxis cephalexin [From Keflex] Allergy (Unknown, Verified 12/11/23 15:04) RED+ITCHY,RASH Cephalosporins [CEPHALOSPORINS] Allergy (Unknown, Verified 12/11/23 15:04) RED+ITCHY Sulfa (Sulfonamide Antibiotics) [SULFA(SULFONAMIDE ANTIBIOTICS)] Allergy (Unknown, Verified 12/11/23 15:04) RED+ITCHY retuxin Adverse Reaction (Severe, Uncoded 12/11/23 15:04) Abdominal Pain Medication List - Last Reconciled 12/11/23 by Shana Allen RN [4Life transfer factor PO BID] atorvastatin 20 mg PO BEDTIME 30 days belimumab (Benlysta) 200 mg subcut QWEEK calcitriol 0.25 mcg PO DAILY clobetasol 0.05% 1 appl topical DAILY erythromycin 1 appl ophthalmic (eye) DAILY 15 days fluocinonide 0.05% appl topical gabapentin 200 mg (2 x 100 mg) PO DAILY 30 days [KBU PO BID] levothyroxine 100 mcg PO DAILY lisinopril 2.5 mg PO DAILY loratadine 10 mg PO DAILY 14 days magnesium oxide 250 mg PO BID prednisone Starting October 04, take 3 tabs daily for 1 month then remain on 2 tabs daily [Renuvo PO BID] sodium bicarbonate 650 mg PO BID [Super Detox PO] warfarin 5 mg See Protocol PO DAILY Nursing Note INR: 2.0- in therapeutic range of 2-3 Medications and supplements reviewed- no changes No changes in health, diet, medications, or supplements, Denies any signs and symptoms of bleeding or bruising or clotting. Bleeding, bruising, clotting discussed Nutritional guidance given Dose: 5mg x 2, 2.5mg x 5 F/U INR: pt req 3 weeks Patient verbalizes understanding of instructions given Anti-Coag Initial Assessment Social Hx Patient Tobacco Use Status: Former Tobacco user Quit Date: 03/03/22 alcohol intake: former Alcohol intake frequency: does not drink Coding Level of Care Code Est Patient Level 1 Diagnoses Current use of anticoagulant therapy Z79.01 Assessment & Plan Assessment & Plan (1) Current use of anticoagulant therapy: Code(s): Z79.01 - detention (current) use of anticoagulants Category: Medical
[2023-12-11 15:10] LABS: Prothrombin Time Whole Bld POC 23.8 sec (11.1-13.5)
== END 2023-12-11 15:17 | disposition home or self-care (01) ==
LOC: HO.ACS 14:56
PROVIDERS: PCP Physician Assistant; Visit Provider Internal Medicine
DX: Z79.01 Long term (current) use of anticoagulants (principal)

== ENCOUNTER → 2023-12-11 14:56 | Outpatient (BNVA) | payer OTHER, MEDICAID, SELFPAY | PROVIDERS: PCP Physician Assistant; Visit Provider Internal Medicine | DX: I26.99 Other pulmonary embolism without acute cor pulmonale (principal); Z51.81 Encounter for therapeutic drug level monitoring; Z79.01 Long term (current) use of anticoagulants | CPT/HCPCS: 85610; 99211 ==

== ENCOUNTER 2023-12-28 15:24 | Outpatient (AMB) | payer OTHER, MEDICAID, SELFPAY ==
--- NOTE | 2023-12-28 15:29 | MHC.OFFVISCO ---
Intake Intake Visit Reasons: Anticoagulation Allergies rituximab [From Rituxan] Allergy (Severe, Verified 12/28/23 15:25) Anaphylaxis cephalexin [From Keflex] Allergy (Unknown, Verified 12/28/23 15:25) RED+ITCHY,RASH Cephalosporins [CEPHALOSPORINS] Allergy (Unknown, Verified 12/28/23 15:25) RED+ITCHY Sulfa (Sulfonamide Antibiotics) [SULFA(SULFONAMIDE ANTIBIOTICS)] Allergy (Unknown, Verified 12/28/23 15:25) RED+ITCHY retuxin Adverse Reaction (Severe, Uncoded 12/28/23 15:25) Abdominal Pain Medication List - Last Reconciled 12/28/23 by Shana Allen RN [4Life transfer factor PO BID] atorvastatin 20 mg PO BEDTIME 30 days belimumab (Benlysta) 200 mg subcut QWEEK calcitriol 0.25 mcg PO DAILY clobetasol 0.05% 1 appl topical DAILY enoxaparin (Lovenox) 60 mg (0.6 mL) subcut DAILY 10 days erythromycin 1 appl ophthalmic (eye) DAILY 15 days fluocinonide 0.05% appl topical gabapentin 200 mg (2 x 100 mg) PO DAILY 30 days [KBU PO BID] levothyroxine 100 mcg PO DAILY lisinopril 2.5 mg PO DAILY loratadine 10 mg PO DAILY 14 days magnesium oxide 250 mg PO BID prednisone Starting October 04, take 3 tabs daily for 1 month then remain on 2 tabs daily [Renuvo PO BID] sodium bicarbonate 650 mg PO BID [Super Detox PO] warfarin 5 mg See Protocol PO DAILY Nursing Note INR 1.9-?? out of therapeutic range of 2-3 pt states may have missed a dose on sunday Medications and supplements reviewed Patient status: pt scheduled for dental extractions on 01/03/24- 4 day hold warfarin with lovenox bridge Medications or supplements: no changes Diet: same Denies any signs and symptoms of bleeding or clotting or unusual bruising Bleeding, bruising, clotting discussed Nutritional guidance given: avoid greens when restarting warfarin Dose: take 5mg today and 2.5mg tomm then start 4 day hold with lovenox per written instructions. pt made aware lovenox is daily per pcp due to kidney function F/U INR Date : 01/08/24? Patient verbalizing understanding of instructions given. Anti-Coag Initial Assessment Social Hx Patient Tobacco Use Status: Former Tobacco user Quit Date: 03/03/22 alcohol intake: former Alcohol intake frequency: does not drink Coding Level of Care Code Est Patient Level 2 Diagnoses Current use of anticoagulant therapy Z79.01 Assessment & Plan Assessment & Plan (1) Current use of anticoagulant therapy: Code(s): Z79.01 - jail (current) use of anticoagulants Category: Medical
[2023-12-28 15:31] LABS: Prothrombin Time Whole Bld POC 22.5 sec (11.1-13.5); ~PT, ~INR - Anti Coag Clinic 1.9 (0.9-1.1)
== END 2023-12-28 15:43 | disposition home or self-care (01) ==
LOC: HO.ACS 15:24
PROVIDERS: PCP Physician Assistant; Visit Provider Internal Medicine
DX: Z79.01 Long term (current) use of anticoagulants (principal)

== ENCOUNTER → 2023-12-28 15:24 | Outpatient (BNVA) | payer OTHER, MEDICAID, SELFPAY | PROVIDERS: PCP Physician Assistant; Visit Provider Internal Medicine | DX: I26.99 Other pulmonary embolism without acute cor pulmonale (principal); Z51.81 Encounter for therapeutic drug level monitoring; Z79.01 Long term (current) use of anticoagulants | CPT/HCPCS: 85610; 99212 ==

== ENCOUNTER 2024-01-08 15:12 | Outpatient (AMB) | payer OTHER, MEDICAID, SELFPAY ==
--- NOTE | 2024-01-08 15:19 | MHC.OFFVISCO ---
Intake Intake Visit Reasons: Anticoagulation Allergies rituximab [From Rituxan] Allergy (Severe, Verified 01/08/24 15:13) Anaphylaxis cephalexin [From Keflex] Allergy (Unknown, Verified 01/08/24 15:13) RED+ITCHY,RASH Cephalosporins [CEPHALOSPORINS] Allergy (Unknown, Verified 01/08/24 15:13) RED+ITCHY Sulfa (Sulfonamide Antibiotics) [SULFA(SULFONAMIDE ANTIBIOTICS)] Allergy (Unknown, Verified 01/08/24 15:13) RED+ITCHY retuxin Adverse Reaction (Severe, Uncoded 01/08/24 15:13) Abdominal Pain Medication List - Last Reconciled 01/08/24 by Shana Allen RN [4Life transfer factor PO BID] atorvastatin 20 mg PO BEDTIME 30 days belimumab (Benlysta) 200 mg subcut QWEEK calcitriol 0.25 mcg PO DAILY clobetasol 0.05% 1 appl topical DAILY enoxaparin (Lovenox) 60 mg See Protocol subcut DAILY 10 days erythromycin 1 appl ophthalmic (eye) DAILY 15 days fluocinonide 0.05% appl topical gabapentin 200 mg (2 x 100 mg) PO DAILY 30 days [KBU PO BID] levothyroxine 100 mcg PO DAILY lisinopril 2.5 mg PO DAILY loratadine 10 mg PO DAILY 14 days magnesium oxide 250 mg PO BID prednisone Starting October 04, take 3 tabs daily for 1 month then remain on 2 tabs daily [Renuvo PO BID] sodium bicarbonate 650 mg PO BID [Super Detox PO] warfarin 5 mg See Protocol PO DAILY Nursing Note INR: 2.5- in therapeutic range of 2-3 Medications and supplements reviewed No changes in health, diet, medications, or supplements, Denies any signs and symptoms of bleeding or bruising or clotting. Bleeding, bruising, clotting discussed Nutritional guidance given Dose: cont reg dosing 5mg x 2, 2.5mg x 5 F/U INR: 1 week Patient verbalizes understanding of instructions given pt s/p dental extractions x 3 on 01/03/24 - 4 day hold of warfarin per pcp, with lovenox bridging. pt restarted warfarin on 01/03/24 and self dosed and took 5mg daily for 5 days post op and stopped her lovenox on 01/06/24 pt denies bleeding. 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
[2024-01-08 15:20] LABS: Prothrombin Time Whole Bld POC 30.3 sec (11.1-13.5); ~PT, ~INR - Anti Coag Clinic 2.5 (0.9-1.1)
== END 2024-01-08 15:30 | disposition home or self-care (01) ==
LOC: HO.ACS 15:12
PROVIDERS: PCP Physician Assistant; Visit Provider Internal Medicine
DX: Z79.01 Long term (current) use of anticoagulants (principal)

== ENCOUNTER → 2024-01-08 15:12 | Outpatient (BNVA) | payer OTHER, MEDICAID, SELFPAY | PROVIDERS: PCP Physician Assistant; Visit Provider Internal Medicine | DX: I26.99 Other pulmonary embolism without acute cor pulmonale (principal); Z51.81 Encounter for therapeutic drug level monitoring; Z79.01 Long term (current) use of anticoagulants | CPT/HCPCS: 85610; 99211 ==

== ENCOUNTER 2024-01-14 15:59 | Outpatient (REF) | payer OTHER, MEDICAID, SELFPAY ==
[2024-01-14 16:15] LABS: MANUAL DIFF FLAG NO
[2024-01-14 17:35] LABS: Basophils Percent Auto 0.5 % (0-2); Eosinophils Absolute Auto 0.2 X10*3/uL (0.0-0.4); Eosinophils Percent Auto 3.6 % (0-4); Hematocrit 32.5 % (37.0-47.0); Hemoglobin 10.4 g/dl (12.0-16.0); Imm Gran Abs Auto 0.02 X10*3/uL (0.00-0.03); Imm Gran Pct Auto 0.3 % (0.0-0.4); Lymphocytes Absolute Auto 1.8 X10*3/uL (1.2-4.9); Lymphocytes Percent Auto 28.1 % (20-40); Mean Corpuscular Hemoglobin 29.8 pg (27.0-33.0); Mean Corpuscular Volume 93.1 fL (80.0-98.0); Monocytes Absolute Auto 0.7 X10*3/uL (0.1-1.2); Monocytes Percent Auto 10.5 % (2-11); Neutrophils Absolute Auto 3.7 x10*3/uL (2.0-8.3); Platelet Count 275 X10*3/uL (160-400); Red Blood Count 3.49 X10*6/uL (4.20-5.50); Red Cell Distribution Width 12.9 % (11.0-16.0); White Blood Count 6.4 X10*3/uL (4.8-10.8)
[2024-01-14 17:45] LABS: Urine Cytology See Pathology rpt
[2024-01-14 17:56] LABS: Appearance Urine Clear; Color Urine Yellow; Glucose Urine UA Negative (Negative); Leukocyte Esterase Urine Negative (Negative); Nitrite Urine Negative (Negative); PH 6.5 (5.0-9.0); UMIC TRIGGER UA YES; Urine Blood Trace (Negative); Urine Ketones Negative (Negative); Urine Protein 100 (2+) mg/dL (Neg-Trace)
[2024-01-14 17:58] LABS: Bacteria Urine None Seen (None Seen); Hyaline Casts Urine 0-2 /LPF (0-2); RBC Urine 0-2 /HPF (0-2); Squamous Epithelial Cell Urine 0-2 /HPF (0-2); WBC Urine 0-5 /HPF (0-5)
[2024-01-14 18:01] LABS: Erythrocyte Sedimentation Rate 27 MM/HR (0-20)
[2024-01-14 18:15] LABS: Alanine Aminotransferase 39 U/L (0-31); Alkaline Phosphatase 78 U/L (39-117); Anion Gap 9 (12-20); Aspartate Amino Transferase 28 U/L (5-31); Bilirubin Total 0.4 mg/dL (0.0-1.0); Blood Urea Nitrogen 39 mg/dL (9-16); Calcium 10.4 mg/dL (8.4-10.2); Carbon Dioxide 23 mmol/L (22-29); Chloride 113 mmol/L (96-108); Cholesterol 196 mg/dL (<200); Estimated Glomerular Filt Rate 18; Glucose Fasting 86 mg/dL (60-99); HDL Cholesterol 28 mg/dL (>40); Potassium 4.4 mmol/L (3.3-5.1); Sodium 141 mmol/L (135-145); Total Protein 7.6 g/dL (6.5-8.0); Triglycerides 469 mg/dL (<150)
[2024-01-14 18:23] LABS: Free T4 (Free Thyroxine) 1.14 ng/dL (0.71-1.85); Thyroid Stimulating Hormone 0.29 uIU/mL (0.32-4.0)
[2024-01-14 19:02] LABS: Protein/Creatinine Ratio, Ur 3.28 (<0.2); Total Protein Urine Random 133 mg/dL (<12)
[2024-01-14 19:20] LABS: C Reactive Protein 0.21 mg/dL (< or = 0.50)
[2024-01-14 19:45] LABS: Vitamin D 25-OH Total 65.9 ng/mL (>30)
[2024-01-15 16:49] LABS: LDL Cholesterol Direct 93 mg/dL (<100)
[2024-01-15 20:17] LABS: Anti DNA DS Antibody 1 IU/mL
[2024-01-16 23:34] LABS: Complement C3 88 mg/dL (83-193)
== END 2024-01-14 16:00 | disposition home or self-care (01) ==
LOC: HO.LAB 15:59
PROVIDERS: Absent Provider Internal Medicine Endocrinology, Diabetes & Metabolism; PCP Physician Assistant; Visit Provider Student in an Organized Health Care Education/Training Program
DX: M32.14 Glomerular disease in systemic lupus erythematosus (principal); E03.8 Other specified hypothyroidism; E06.3 Autoimmune thyroiditis; E78.1 Pure hyperglyceridemia; M32.9 Systemic lupus erythematosus, unspecified; Z92.21 Personal history of antineoplastic chemotherapy
CPT/HCPCS: 36415; 80053; 80061; 81001; 82306; 82570; 83721; 84156; 84439; 84443; 85025; 85027; 85652; 86140; 86160; 86225; 88112

== ENCOUNTER 2024-01-17 14:58 | Outpatient (AMB) | payer OTHER, MEDICAID, SELFPAY ==
--- NOTE | 2024-01-17 15:06 | MHC.OFFVISCO ---
Intake Intake Visit Reasons: Anticoagulation Allergies rituximab [From Rituxan] Allergy (Severe, Verified 01/17/24 15:02) Anaphylaxis cephalexin [From Keflex] Allergy (Unknown, Verified 01/17/24 15:02) RED+ITCHY,RASH Cephalosporins [CEPHALOSPORINS] Allergy (Unknown, Verified 01/17/24 15:02) RED+ITCHY Sulfa (Sulfonamide Antibiotics) [SULFA(SULFONAMIDE ANTIBIOTICS)] Allergy (Unknown, Verified 01/17/24 15:02) RED+ITCHY retuxin Adverse Reaction (Severe, Uncoded 01/17/24 15:02) Abdominal Pain Medication List - Last Reconciled 01/17/24 by Shana Allen RN [4Life transfer factor PO BID] atorvastatin 20 mg PO BEDTIME 30 days belimumab (Benlysta) 200 mg subcut QWEEK calcitriol 0.25 mcg PO DAILY clobetasol 0.05% 1 appl topical DAILY erythromycin 1 appl ophthalmic (eye) DAILY 15 days fluocinonide 0.05% appl topical gabapentin 200 mg (2 x 100 mg) PO DAILY 30 days [KBU PO BID] levothyroxine 100 mcg PO DAILY lisinopril 2.5 mg PO DAILY loratadine 10 mg PO DAILY 14 days magnesium oxide 250 mg PO BID prednisone Starting October 04, take 3 tabs daily for 1 month then remain on 2 tabs daily [Renuvo PO BID] sodium bicarbonate 650 mg PO BID [Super Detox PO] warfarin 5 mg See Protocol PO DAILY Nursing Note INR 3.8-?? out of therapeutic range of 2-3 Medications and supplements reviewed Patient status: s/p dental extractions,has had strawberries Medications or supplements: no changes Diet: sl less due to dental proc, has had strawberries Denies any signs and symptoms of bleeding or clotting or unusual bruising Bleeding, bruising, clotting discussed Nutritional guidance given: eat greens to lower Dose: already took warfarin today, hold dose tomm then cont 5mg x 2, 2.5mg x 5 F/U INR Date : pt req 2 weeks? Patient verbalizing understanding of instructions given. Anti-Coag Initial Assessment Social Hx Patient Tobacco Use Status: Former Tobacco user alcohol intake: former Alcohol intake frequency: does not drink Coding Level of Care Code Est Patient Level 1 Diagnoses Current use of anticoagulant therapy Z79.01 Results AMB INR Fingerstick AMB INR Fingerstick 3.8 Last Edit by Shana Allen RN on 01/17/24 15:08 Assessment & Plan Assessment & Plan (1) Current use of anticoagulant therapy: Code(s): Z79.01 - skilled nursing (current) use of anticoagulants Category: Medical
[2024-01-17 15:11] LABS: Prothrombin Time Whole Bld POC 45.8 sec (11.1-13.5); ~PT, ~INR - Anti Coag Clinic 3.8 (0.9-1.1)
== END 2024-01-17 15:14 | disposition home or self-care (01) ==
LOC: HO.ACS 14:58
PROVIDERS: PCP Physician Assistant; Visit Provider Internal Medicine
DX: Z79.01 Long term (current) use of anticoagulants (principal)

== ENCOUNTER → 2024-01-17 14:58 | Outpatient (BNVA) | payer OTHER, MEDICAID, SELFPAY | PROVIDERS: PCP Physician Assistant; Visit Provider Internal Medicine | DX: I26.99 Other pulmonary embolism without acute cor pulmonale (principal); Z51.81 Encounter for therapeutic drug level monitoring; Z79.01 Long term (current) use of anticoagulants | CPT/HCPCS: 85610; 99211 ==

== ENCOUNTER 2024-01-21 14:32 | Outpatient (AMB) | payer OTHER, MEDICAID, SELFPAY ==
--- NOTE | 2024-01-21 14:36 | A.OFFVIS_ITS ---
Vital Signs 01/21/24 14:37 Height 5 ft Weight 127 lb 10.362 oz BMI 24.9 BP 122/80 Blood Pressure Location Rt brachial Position Sitting Pulse 62 Pulse Source Pulse Oximeter Pulse Oximetry (%) 100 Oxygen Delivery Method Room Air Intake Visit Reasons: SLE Intake Note: Patient last seen 09/03/23 presents today for follow up and test results. Allergies rituximab [From Rituxan] Allergy (Severe, Verified 01/21/24 14:39) Anaphylaxis cephalexin [From Keflex] Allergy (Unknown, Verified 01/21/24 14:39) RED+ITCHY,RASH Cephalosporins [CEPHALOSPORINS] Allergy (Unknown, Verified 01/21/24 14:39) RED+ITCHY Sulfa (Sulfonamide Antibiotics) [SULFA(SULFONAMIDE ANTIBIOTICS)] Allergy (Unknown, Verified 01/21/24 14:39) RED+ITCHY retuxin Adverse Reaction (Severe, Uncoded 01/21/24 14:39) Abdominal Pain Medication List - Last Reconciled 01/21/24 by Federico Stallworth MD [4Life transfer factor PO BID] atorvastatin 20 mg PO BEDTIME 30 days belimumab (Benlysta) 200 mg subcut QWEEK calcitriol 0.25 mcg PO DAILY clobetasol 0.05% 1 appl topical DAILY erythromycin 1 appl ophthalmic (eye) DAILY 15 days fluocinonide 0.05% appl topical gabapentin 200 mg (2 x 100 mg) PO DAILY 30 days [KBU PO BID] levothyroxine 100 mcg PO DAILY lisinopril 2.5 mg PO DAILY loratadine 10 mg PO DAILY 14 days magnesium oxide 250 mg PO BID prednisone Starting October 04, take 3 tabs daily for 1 month then remain on 2 tabs daily [Renuvo PO BID] sodium bicarbonate 650 mg PO BID [Super Detox PO] warfarin 5 mg See Protocol PO DAILY HPI Comments Details: This is a 58-year-old female with SLE who presents for follow-up. She started Benlysta about a month ago. She has been on prednisone 2.5 mg daily for the last few months. She states that she is doing well overall. She continues to have some aches and pains but no swollen joints. No skin rashes. No fevers. Per Dr. Andino in 2019: Patient was diagnosed with lupus in 2002 when she was admitted in the ICU with chest pain, leg swelling, fever,rash and shortness of breath. 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 She also had alopecia, joint pains, skin eruptions. She has questionable Raynaud, occasional oral ulcers. She recieved cytoxan in 2005, was tried on cyclosporin which was discontinued sec to epigastric pain.She was started on cellcept in 2008 sec to ongoing proteinuria. Inspite of increasing it to 3gms she continued to have ongoing proteinuria. She has recieved 2 doses of Rituximab 500mg , 2 weeks apart in 2010. Since February 2012 she was started on Benlysta for her skin symptoms with improvement. She had been getting it until she lost her insurance late last year. She feels the Benlysta really helped her with the rash. Benlysta was stopped . They she was out on Acthar gel but it was stopped because of insurance coverage. This was in 2017, she took it for a year but not a complete year. It never was consistent. ?She is currently taking plaquenil, enalapril, and one more (she will call to give us the name) and coumadin. She is using clobetasol for her rash and it is helping. ?Bone density: DIAGNOSIS: Normal bone density based on the lowest T-score value of?-0.9 in the femoral neck applying World Health Organization criteria.?Hands radiographs: Normal right and left hand studies without evidence of osteoarthritis or erosive arthritides. [facility] Medical History Prediabetes SLE glomerulonephritis syndrome History of pulmonary embolism Vitamin D deficiency Hypertriglyceridemia Hypothyroidism Surgical History Hx of tubal ligation Family History Father Family history unknown Mother Hypertension Diabetes Deep vein thrombosis CVA (cerebral vascular accident) Brother CVA (cerebral vascular accident), Onset Age: 48 Brother CVA (cerebral vascular accident), Onset Age: 38 Social History Household Members: None Housing: House Alcohol intake: former Patient Tobacco Use Status: Former Tobacco user e-Cigarette/Vaping Use: Never Used cafegive service: No Current occupational status: employed 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 Cognitive needs: No Hearing needs: No Vision needs: No Female Reproductive History Menstrual Total pregnancies: 3 Number of Living Children: 2 Ab spontaneous: 1 Review of Systems Const Denies fever(s) Musc Reports myalgias, Denies arthralgias, Denies joint swelling and Denies stiffness Skin/Breast Denies rash Physical Exam Vital Signs: Last Vital Signs Pulse 62 01/21/24 14:37 BP 122/80 01/21/24 14:37 Pulse Ox 100 01/21/24 14:37 Oxygen Delivery Method Room Air 01/21/24 14:37 BMI result Body Mass Index 24.9 Const General: cooperative, healthy appearing and comfortable Nutritional Appearance: average body habitus Orientation/consciousness: patient oriented x3 Limitations: no limitations HEENT Head: Yes normocephalic and Yes atraumatic Mouth: moist mucous membranes Resp Effort & Inspection: normal respiratory effort and able to speak in complete sentences Auscultation: clear to auscultation bilaterally Cardio Rate: regular rate Rhythm: regular rhythm Skin General skin exam: no rashes or lesions noted Neuro General: patient oriented x3 Extrem Other: No active synovitis Normal nailfold capillaroscopy Results Reviewed Results Reviewed: Right kidney biopsy 04/2022: [facility] Dept. of Pathology (their number [id number]): - Focal lupus nephritis and membranous lupus nephritis (class III + V, pending EM studies). - Focal endocapillary proliferation (2 glomeruli, 7%) and a singular cellular crescent (3%). - Global sclerosis of 16 of 29 glomeruli (55%) with severe interstitial fibrosis and tubular atrophy involving 60-70% of the cortical area. - Electron microscopy has been initiated to evaluate the extent and location of electron dense deposits,[facility] Dept. of Pathology (their number [id number]): - Focal lupus nephritis and membranous lupus nephritis (class III + V, pending EM studies). - Focal endocapillary proliferation (2 glomeruli, 7%) and a singular cellular crescent (3%). - Global sclerosis of 16 of 29 glomeruli (55%) with severe interstitial fibrosis and tubular atrophy involving 60-70% of the cortical area. - Electron microscopy has been initiated to evaluate the extent and location of electron dense deposits, which could potentially alter clas sification, to be reported in an addendum. - Modified NIH lupus nephritis activity index: 7. 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 - Modified NIH lupus nephritis activity index: 7. Chronicity index: 9 Note: The findings support combined membranous (class V) and focal lupus nephritis (class III), pending electron microscopy to confirm the extent and location of electron dense deposits Labs 06/2023 C3 97 (83-193) C4 22 (15-57) Beta 2 glycoprotein IgG/beta 2 glycoprotein IgA/Be2 glycoprotein IgM/phosphatidylserine IgG/phosphatidylserine IgM/cardiolipin IgA/cardiolipin IgG/cardiolipin IgM all negative Creatinine 2.61 with GFR 21 Sodium/potassium/calcium/phosphate all normal PTH 205 (16-77) CBC unremarkable except for mild anemia hemoglobin 11.4 (>11.7) Platelets 310 WBC 5.9 Total iron 36 (45-160) TIBC 270 250-450 Iron saturation 13 (16-45%) Ferritin 75 nl Vitamin-D 22 low TYRON IFA negative DsDNA 2 (-ve) Albumin to creatinine ratio 2286 (<30) Protein to creatinine ratio 4.6 grams Assessment & Plan Assessment & Plan (1) Lupus (systemic lupus erythematosus): Comment: onset [id number] Treated with Cytoxan and prednisone Coumadin throughout Cyclosporin 2005 DC due to epigastric pain CellCept 2008 up titrated to 3 g daily, developed worsening proteinuria Rituximab 2 doses, 2 weeks apart 2010 Believes that she took hydroxychloroquine and discontinued it due to tinnitus ?! Benlysta 02/2012 was helpful especially for skin lesions. Discontinued due to loss of insurance Acthar gel 2016 took it for about a year inconsistently Repeat kidney biopsy 04/2022 showed class 3 and 5 nephritis. Received 1 dose of rituximab 08/2022 with some improvement Benlysta 12/2023 Code(s): M32.9 - Systemic lupus erythematosus, unspecified Category: Medical Qualifiers: Systemic lupus erythematosus type: other Systemic lupus erythematosus organ involvement: glomerular disease Qualified Code(s): M32.14 - Glomerular disease in systemic lupus erythematosus Plan: This is a 58-year-old female with SLE who presents for follow-up. She started Benlysta about a month ago, well tolerated, she has been on prednisone 2.5 mg daily for a few months now. I do not see any signs of active SLE on exam. Lupus stable. Continue with Benlysta for now. Continue prednisone 2.5 mg daily. If patient remains stable, can consider continuing prednisone altogether Labs before next visit in 3 months (2) SLE glomerulonephritis syndrome: Comment: onset [id number] class 3 and class 5 nephritis, low C3, low C4 Repeat kidney biopsy 04/2022 showed class 3 and 5 nephritis. Received 1 dose of rituximab 08/2022 with some improvement Code(s): - Glomerular disease in systemic lupus erythematosus Category: Medical Plan: Continue to follow-up with Nephrology Plan I spent 25 minutes reviewing patient's chart, evaluating patient, ordering diagnostic workup, counseling patient and documenting in the chart Orders: Orders Anti DNA DS Antibody 3 Months - Glomerular disease in systemic lupus erythematosus Complement C3 3 Months - Glomerular disease in systemic lupus erythematosus C Reactive Protein 3 Months - Glomerular disease in systemic lupus erythematosus Erythrocyte Sedimentation Rate 3 Months - Glomerular disease in systemic lupus erythematosus Comprehensive Met. Panel 3 Months - Glomerular disease in systemic lupus erythematosus Protein Creatinine Ratio, Ur 3 Months - Glomerular disease in systemic lupus erythematosus UA w Microscopic 3 Months - Glomerular disease in systemic lupus erythematosus Complete Blood Count Auto Diff 3 Months - Glomerular disease in systemic lupus erythematosus Medications: Changed From belimumab (Benlysta) inject 200mg once a week into upper thigh or abdomen; rotate sites 200 mg subcut QWEEK 4 mL 2RF To Benlysta (belimumab) inject 200mg once a week into upper thigh or abdomen; rotate sites 200 mg subcut QWEEK 4 mL 3RF NS Coding Level of Care Code Est Pt Level 4 (17185) Diagnoses Other systemic lupus erythematosus with glomerular disease Systemic lupus erythematosus type: other Systemic lupus erythematosus organ involvement: glomerular disease SLE glomerulonephritis syndrome
[2024-01-21 14:37] VITALS: BP 122/80; PULSE 62; O2SAT 100; BMI 24.9
== END 2024-01-21 14:55 | disposition home or self-care (01) ==
LOC: HO.RHE 14:32
PROVIDERS: PCP Physician Assistant; Visit Provider Student in an Organized Health Care Education/Training Program
DX: M32.14 Glomerular disease in systemic lupus erythematosus (principal)
CPT/HCPCS: 99214

== ENCOUNTER → 2024-01-21 14:32 | Outpatient (BNVA) | payer OTHER, MEDICAID, SELFPAY | PROVIDERS: PCP Physician Assistant; Visit Provider Student in an Organized Health Care Education/Training Program ==

== ENCOUNTER 2024-01-22 16:10 | Outpatient (AMB) | payer OTHER, MEDICAID, SELFPAY ==
--- NOTE | 2024-01-22 16:17 | A.OFFVIS_ITS ---
Vital Signs 01/22/24 16:18 Height 5 ft Weight 127 lb 13.89 oz BMI 25.0 BP 116/74 Blood Pressure Location Rt brachial Position Sitting Pulse 77 Pulse Source Pulse Oximeter Intake Visit Reasons: Hyporthyroidism-lvm Intake Note: Patient presents today for Hypothyroidism follow up. 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 Required: No Accompanied by: Self / Same As Patient Allergies rituximab [From Rituxan] Allergy (Severe, Verified 01/22/24 16:19) Anaphylaxis cephalexin [From Keflex] Allergy (Unknown, Verified 01/22/24 16:19) RED+ITCHY,RASH Cephalosporins [CEPHALOSPORINS] Allergy (Unknown, Verified 01/22/24 16:19) RED+ITCHY Sulfa (Sulfonamide Antibiotics) [SULFA(SULFONAMIDE ANTIBIOTICS)] Allergy (Unknown, Verified 01/22/24 16:19) RED+ITCHY retuxin Adverse Reaction (Severe, Uncoded 01/22/24 16:19) Abdominal Pain Medication List - Last Reconciled 01/22/24 by Gino Mora MD [4Life transfer factor PO BID] atorvastatin 20 mg PO BEDTIME 30 days Benlysta (belimumab) 200 mg subcut QWEEK NS calcitriol 0.25 mcg PO DAILY clobetasol 0.05% 1 appl topical DAILY erythromycin 1 appl ophthalmic (eye) DAILY 15 days fluocinonide 0.05% appl topical gabapentin 200 mg (2 x 100 mg) PO DAILY 30 days [KBU PO BID] levothyroxine 100 mcg PO DAILY lisinopril 2.5 mg PO DAILY loratadine 10 mg PO DAILY 14 days magnesium oxide 250 mg PO BID prednisone Starting October 04, take 3 tabs daily for 1 month then remain on 2 tabs daily [Renuvo PO BID] sodium bicarbonate 650 mg PO BID [Super Detox PO] warfarin 5 mg See Protocol PO DAILY HPI Comments Details: 58 YO Female with a complex medical history including SLE with nephritis, history of PE on chronic AC with Coumadin, 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 She was previously followed by Dr. Verma. The patient last saw Dr. Lund on 12/13/2022 She has a longstanding history of hypertriglyceridemia. She remains off fibrates due to the risk of interaction with warfarin. She has not been evaluated by a lipid specialist. After our initial visit I did refer her to Dr. Lydia Gunderson. She was unable to attend this appointment due to lack of transportation. She was started on Atorvastatin and is currently on 20 mg PO daily. LDL remains elevated as do TG levels. 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 She has required high doses of levothyroxine, which was thought by Dr. Verma to be due to nephrotic syndrome. It does appear she had nephrotic range proteinuria back in 2002 and 2005, but this has not been routinely assessed in our system since that time. She was requiring high doses of levothyroxine, and at the time of her initial visit with me she was using levothyroxine 250 mcg PO daily. Her labs reveal hyperthyroidism with suppressed TSH, however she also remains on Prednisone 10 mg PO daily. FT4 was WNL, so I do not suspect it is the prednisone causing lowering of her TSH. I decreased her levothyroxine at that time to 175 mcg PO daily, but TSH remained suppressed. Her dose was further decreased, now to levothyroxine 100 mcg PO daily and TSH is now at goal. She had a thyroid US completed 11/10/2021 which revealed no nodules. She reports feeling well and has no complaints today. She has Vitamin D deficiency and is prescribed a high dose Vitamin D 2000 IU daily. Vitamin D is at goal. Labs: Laboratory Tests 12/09/22 12/09/22 07:31 07:31 Triglycerides 349 Cholesterol 247 LDL Cholesterol Direct 135 H LDL Cholesterol, Calc 147 HDL Cholesterol 31 TSH 1.30 Free T4 1.06 [facility] Medical History Prediabetes SLE glomerulonephritis syndrome History of pulmonary embolism Vitamin D deficiency Hypertriglyceridemia Hypothyroidism Surgical History Hx of tubal ligation Family History Father Family history unknown Mother Hypertension Diabetes Deep vein thrombosis CVA (cerebral vascular accident) Brother CVA (cerebral vascular accident), Onset Age: 48 Brother CVA (cerebral vascular accident), Onset Age: 38 Social History Household Members: None Housing: House Alcohol intake: former Patient Tobacco Use Status: Former Tobacco user e-Cigarette/Vaping Use: Never Used service: No Current occupational status: employed 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 There are no thyroid nodules palpated Assessment & Plan Assessment & Plan (1) Hypertriglyceridemia: Code(s): E78.1 - Pure hyperglyceridemia Category: Medical Plan: This is a 58-year-old female with a history of mixed hyperlipidemia in the setting of CKD stage 4. Patient has not been taking the atorvastatin Stress compliance with the atorvastatin. Recheck lipid profile 8 weeks after starting the atorvastatin. If triglycerides are significantly elevated could increase statin dose. Will also push diet and exercise (2) Hypothyroidism: Code(s): E03.9 - Hypothyroidism, unspecified Category: Medical Qualifiers: Hypothyroidism type: due to Ar's thyroiditis Qualified Code(s): E03.8 - Other specified hypothyroidism; E06.3 - Autoimmune thyroiditis Plan: History of hypothyroidism currently levothyroxine 100 mcg. Appears to be clinically euthyroid but with slightly depressed TSH level Plan is to re check TSH and free T4 in 6 weeks Orders: Orders Lipid Panel 2 Months E03.8 - Other specified hypothyroidism, E06.3 - Autoimmune thyroiditis, E78.1 - Pure hyperglyceridemia Thyroid Stimulating Hormone 2 Months E03.8 - Other specified hypothyroidism, E06.3 - Autoimmune thyroiditis, E78.1 - Pure hyperglyceridemia Free T4 (Free Thyroxine) 2 Months E03.8 - Other specified hypothyroidism, E06.3 - Autoimmune thyroiditis, E78.1 - Pure hyperglyceridemia Coding Level of Care Code Est Pt Level 3 (10045) Diagnoses Hypertriglyceridemia E78.1 Hypothyroidism due to Ar's thyroiditis E03.8; E06.3 Hypothyroidism type: due to Ar's thyroiditis
[2024-01-22 16:18] VITALS: BP 116/74; PULSE 77; BMI 25.0
== END 2024-01-22 16:38 | disposition home or self-care (01) ==
PROVIDERS: PCP Physician Assistant; Visit Provider Internal Medicine Endocrinology, Diabetes & Metabolism
DX: E78.1 Pure hyperglyceridemia (principal); E03.8 Other specified hypothyroidism; E06.3 Autoimmune thyroiditis
CPT/HCPCS: 99213

== ENCOUNTER → 2024-01-22 16:10 | Outpatient (BNVA) | payer OTHER, MEDICAID, SELFPAY | PROVIDERS: PCP Physician Assistant; Visit Provider Internal Medicine Endocrinology, Diabetes & Metabolism ==

== ENCOUNTER 2024-01-31 15:33 | Outpatient (AMB) | payer OTHER, MEDICAID, SELFPAY ==
[2024-01-31 15:38] LABS: Prothrombin Time Whole Bld POC 36.6 sec (11.1-13.5); ~PT, ~INR - Anti Coag Clinic 3.1 (0.9-1.1)
--- NOTE | 2024-01-31 15:45 | MHC.OFFVISCO ---
Intake Intake Visit Reasons: Anticoagulation Allergies rituximab [From Rituxan] Allergy (Severe, Verified 01/31/24 15:33) Anaphylaxis cephalexin [From Keflex] Allergy (Unknown, Verified 01/31/24 15:33) RED+ITCHY,RASH Cephalosporins [CEPHALOSPORINS] Allergy (Unknown, Verified 01/31/24 15:33) RED+ITCHY Sulfa (Sulfonamide Antibiotics) [SULFA(SULFONAMIDE ANTIBIOTICS)] Allergy (Unknown, Verified 01/31/24 15:33) RED+ITCHY retuxin Adverse Reaction (Severe, Uncoded 01/31/24 15:33) Abdominal Pain Medication List - Last Reconciled 01/31/24 by Joann Braden RN [4Life transfer factor PO BID] atorvastatin 20 mg PO BEDTIME 30 days Benlysta (belimumab) 200 mg subcut QWEEK NS calcitriol 0.25 mcg PO DAILY clobetasol 0.05% 1 appl topical DAILY erythromycin 1 appl ophthalmic (eye) DAILY 15 days fluocinonide 0.05% appl topical gabapentin 200 mg (2 x 100 mg) PO DAILY 30 days [KBU PO BID] levothyroxine 100 mcg PO DAILY lisinopril 2.5 mg PO DAILY loratadine 10 mg PO DAILY 14 days magnesium oxide 250 mg PO BID prednisone Starting October 04, take 3 tabs daily for 1 month then remain on 2 tabs daily [Renuvo PO BID] sodium bicarbonate 650 mg PO BID [Super Detox PO] warfarin 5 mg See Protocol PO DAILY Nursing Note INR 3.1?out of therapeutic range of 2-3 Medications and supplements reviewed Patient status: well Medications or supplements: no change Diet: usual diet for pt but has had a lot of cherries lately Denies any signs and symptoms of bleeding or clotting or unusual bruising Bleeding, bruising, clotting discussed Nutritional guidance given: to avoid the berries today and have a serving of food from the list that lowers the INR Dose: resume usual dose of 2.5mg X 5 days and 5mg X 2 days F/U INR Date : 2 weeks?? Patient verbalizing understanding of instructions given. Anti-Coag Initial Assessment Social Hx Patient Tobacco Use Status: Former Tobacco user alcohol intake: former Alcohol intake frequency: does not drink Coding Level of Care Code Est Patient Level 1 Diagnoses Current use of anticoagulant therapy Z79.01 Results AMB INR Fingerstick AMB INR Fingerstick 3.1 Last Edit by Joann Braden RN on 01/31/24 15:49 interface delay Assessment & Plan Assessment & Plan (1) Current use of anticoagulant therapy: Code(s): Z79.01 - penitentiary (current) use of anticoagulants Category: Medical
== END 2024-01-31 16:02 | disposition home or self-care (01) ==
LOC: HO.ACS 15:33
PROVIDERS: PCP Physician Assistant; Visit Provider Internal Medicine
DX: Z79.01 Long term (current) use of anticoagulants (principal)

== ENCOUNTER → 2024-01-31 15:33 | Outpatient (BNVA) | payer OTHER, MEDICAID, SELFPAY | PROVIDERS: PCP Physician Assistant; Visit Provider Internal Medicine | DX: I26.99 Other pulmonary embolism without acute cor pulmonale (principal); Z51.81 Encounter for therapeutic drug level monitoring; Z79.01 Long term (current) use of anticoagulants | CPT/HCPCS: 85610; 99211 ==

== ENCOUNTER 2024-02-19 15:19 | Outpatient (AMB) | payer OTHER, MEDICAID, SELFPAY ==
[2024-02-19 15:25] LABS: Prothrombin Time Whole Bld POC 43.4 sec (11.1-13.5); ~PT, ~INR - Anti Coag Clinic 3.6 (0.9-1.1)
--- NOTE | 2024-02-19 15:32 | MHC.OFFVISCO ---
Intake Intake Visit Reasons: Anticoagulation Allergies rituximab [From Rituxan] Allergy (Severe, Verified 02/19/24 15:19) Anaphylaxis cephalexin [From Keflex] Allergy (Unknown, Verified 02/19/24 15:19) RED+ITCHY,RASH Cephalosporins [CEPHALOSPORINS] Allergy (Unknown, Verified 02/19/24 15:19) RED+ITCHY Sulfa (Sulfonamide Antibiotics) [SULFA(SULFONAMIDE ANTIBIOTICS)] Allergy (Unknown, Verified 02/19/24 15:19) RED+ITCHY retuxin Adverse Reaction (Severe, Uncoded 02/19/24 15:19) Abdominal Pain Nursing Note INR 3.6?out of therapeutic range of 2-3 Medications and supplements reviewed Patient status: well Medications or supplements: no changes Diet: usual diet for pt Denies any signs and symptoms of bleeding or clotting or unusual bruising Bleeding, bruising, clotting discussed Nutritional guidance given: to have a serving of greens today and tomorrow Dose: 2.5mg X 5 days and 5mg X 2 days F/U INR Date : 2 weeks Patient verbalizing understanding of instructions given. 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
== END 2024-02-19 15:35 | disposition home or self-care (01) ==
LOC: HO.ACS 15:19
PROVIDERS: PCP Physician Assistant; Visit Provider Internal Medicine
DX: Z79.01 Long term (current) use of anticoagulants (principal)

== ENCOUNTER → 2024-02-19 15:19 | Outpatient (BNVA) | payer OTHER, MEDICAID, SELFPAY | PROVIDERS: PCP Physician Assistant; Visit Provider Internal Medicine | DX: I26.99 Other pulmonary embolism without acute cor pulmonale (principal); Z51.81 Encounter for therapeutic drug level monitoring; Z79.01 Long term (current) use of anticoagulants | CPT/HCPCS: 85610; 99211 ==

== ENCOUNTER 2024-03-04 15:29 | Outpatient (AMB) | payer OTHER, MEDICAID, SELFPAY ==
[2024-03-04 15:37] LABS: ~PT, ~INR - Anti Coag Clinic 2.3 (0.9-1.1)
--- NOTE | 2024-03-04 15:38 | MHC.OFFVISCO ---
Intake Intake Visit Reasons: Anticoagulation Allergies rituximab [From Rituxan] Allergy (Severe, Verified 03/04/24 15:32) Anaphylaxis cephalexin [From Keflex] Allergy (Unknown, Verified 03/04/24 15:32) RED+ITCHY,RASH Cephalosporins [CEPHALOSPORINS] Allergy (Unknown, Verified 03/04/24 15:32) RED+ITCHY Sulfa (Sulfonamide Antibiotics) [SULFA(SULFONAMIDE ANTIBIOTICS)] Allergy (Unknown, Verified 03/04/24 15:32) RED+ITCHY retuxin Adverse Reaction (Severe, Uncoded 03/04/24 15:32) Abdominal Pain Medication List - Last Reconciled 03/04/24 by Shana Allen RN [4Life transfer factor PO BID] atorvastatin 20 mg PO BEDTIME 30 days calcitriol 0.25 mcg PO DAILY clobetasol 0.05% 1 appl topical DAILY erythromycin 1 appl ophthalmic (eye) DAILY 15 days fluocinonide 0.05% appl topical gabapentin 200 mg (2 x 100 mg) PO DAILY 30 days [KBU PO BID] levothyroxine 100 mcg PO DAILY lisinopril 2.5 mg PO DAILY loratadine 10 mg PO DAILY 14 days magnesium oxide 250 mg PO BID mycophenolate mofetil 500 mg PO BID prednisone Starting October 04, take 3 tabs daily for 1 month then remain on 2 tabs daily [Renuvo PO BID] sodium bicarbonate 650 mg PO BID [Super Detox PO] warfarin 5 mg See Protocol PO DAILY Nursing Note INR: 2.3- in therapeutic range of 2-3 Medications and supplements reviewed No changes in health, diet, medications, or supplements, Denies any signs and symptoms of bleeding or bruising or clotting. 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
== END 2024-03-04 15:44 | disposition home or self-care (01) ==
LOC: HO.ACS 15:29
PROVIDERS: PCP Physician Assistant; Visit Provider Internal Medicine
DX: Z79.01 Long term (current) use of anticoagulants (principal)

== ENCOUNTER → 2024-03-04 15:29 | Outpatient (BNVA) | payer OTHER, MEDICAID, SELFPAY | PROVIDERS: PCP Physician Assistant; Visit Provider Internal Medicine | DX: I26.99 Other pulmonary embolism without acute cor pulmonale (principal); Z51.81 Encounter for therapeutic drug level monitoring; Z79.01 Long term (current) use of anticoagulants | CPT/HCPCS: 85610; 99211 ==

== ENCOUNTER 2024-03-21 15:25 | Outpatient (REF) | payer OTHER, MEDICAID, SELFPAY ==
[2024-03-21 15:35] LABS: MANUAL DIFF FLAG NO
[2024-03-21 16:16] LABS: Basophils Percent Auto 0.7 % (0-2); Eosinophils Absolute Auto 0.2 X10*3/uL (0.0-0.4); Eosinophils Percent Auto 4.1 % (0-4); Hematocrit 32.7 % (37.0-47.0); Hemoglobin 10.6 g/dl (12.0-16.0); Imm Gran Abs Auto 0.02 X10*3/uL (0.00-0.03); Imm Gran Pct Auto 0.4 % (0.0-0.4); Lymphocytes Absolute Auto 1.6 X10*3/uL (1.2-4.9); Lymphocytes Percent Auto 29.3 % (20-40); Mean Corpuscular HGB Conc 32.4 g/dl (31.0-35.0); Mean Corpuscular Hemoglobin 29.9 pg (27.0-33.0); Mean Corpuscular Volume 92.4 fL (80.0-98.0); Mean Platelet Volume 10.7 fL (9.4-12.3); Monocytes Absolute Auto 0.4 X10*3/uL (0.1-1.2); Monocytes Percent Auto 7.9 % (2-11); Neutrophils Absolute Auto 3.2 x10*3/uL (2.0-8.3); Neutrophils Percent Auto 57.6 % (45-73); Platelet Count 251 X10*3/uL (160-400); Red Blood Count 3.54 X10*6/uL (4.20-5.50); Red Cell Distribution Width 13.5 % (11.0-16.0); White Blood Count 5.6 X10*3/uL (4.8-10.8)
[2024-03-21 16:45] LABS: Anion Gap 14 (12-20); Blood Urea Nitrogen 42 mg/dL (9-16); Calcium 9.9 mg/dL (8.4-10.2); Carbon Dioxide 18 mmol/L (22-29); Chloride 113 mmol/L (96-108); Estimated Glomerular Filt Rate 15; Glucose Random 98 mg/dL (60-115); Potassium 4.5 mmol/L (3.3-5.1); Sodium 140 mmol/L (135-145)
[2024-03-21 16:51] LABS: Parathyroid Hormone Intact 269.5 pg/mL (8.7-77.1)
== END 2024-03-21 15:26 | disposition home or self-care (01) ==
LOC: HO.LAB 15:25
PROVIDERS: PCP Physician Assistant; Visit Provider Internal Medicine Hypertension Specialist
DX: N18.4 Chronic kidney disease, stage 4 (severe) (principal); N18.30 Chronic kidney disease, stage 3 unspecified
CPT/HCPCS: 36415; 80048; 83970; 85025

== ENCOUNTER 2024-03-25 15:24 | Outpatient (AMB) | payer OTHER, MEDICAID, SELFPAY ==
[2024-03-25 15:36] VITALS: BP 122/76; PULSE 76; O2SAT 98
--- NOTE | 2024-03-25 15:36 | HO.NEPHOV_ITS ---
Vital Signs 03/25/24 15:36 Height 5 ft BP 122/76 Blood Pressure Location Lt brachial Position Sitting Pulse 76 Pulse Source Pulse Oximeter Pulse Oximetry (%) 98 Oxygen Delivery Method Room Air Intake Visit Reasons: CKD/ 3 MO FU/ Conf Dietitian Teacher Required: No Accompanied by: Self / Same As Patient Allergies rituximab [From Rituxan] Allergy (Severe, Verified 03/25/24 15:40) Anaphylaxis cephalexin [From Keflex] Allergy (Unknown, Verified 03/25/24 15:40) RED+ITCHY,RASH Cephalosporins [CEPHALOSPORINS] Allergy (Unknown, Verified 03/25/24 15:40) RED+ITCHY Sulfa (Sulfonamide Antibiotics) [SULFA(SULFONAMIDE ANTIBIOTICS)] Allergy (Unknown, Verified 03/25/24 15:40) RED+ITCHY retuxin Adverse Reaction (Severe, Uncoded 03/04/24 15:32) Abdominal Pain Medication List - Last Reconciled 03/25/24 by Roe Morrissey MD [4Life transfer factor PO BID] atorvastatin 20 mg PO BEDTIME 30 days calcitriol 0.25 mcg PO DAILY clobetasol 0.05% 1 appl topical DAILY erythromycin 1 appl ophthalmic (eye) DAILY 15 days fluocinonide 0.05% appl topical gabapentin 200 mg (2 x 100 mg) PO DAILY 30 days [KBU PO BID] levothyroxine 100 mcg PO DAILY lisinopril 2.5 mg PO DAILY loratadine 10 mg PO DAILY 14 days magnesium oxide 250 mg PO BID mycophenolate mofetil 500 mg PO BID prednisone Starting October 04, take 3 tabs daily for 1 month then remain on 2 tabs daily [Renuvo PO BID] sodium bicarbonate 650 mg PO BID [Super Detox PO] warfarin 5 mg See Protocol PO DAILY HPI Comments Details: Dyazide 58-year-old man with history of SLE. She has chronic kidney disease. In 2001, she had a kidney biopsy which showed membranous nephropathy. She was treated with Cytoxan and prednisone and obtain remission. She would relapsed again and was treated with mycophenolate followed by active but she did not tolerate these medications and she refused treatment. She did receive a dose of Rituxan in early August 2022 and subsequently did not want further treatment due to perceived side effects. 12/10/23: Doing well today Waiting for Benlysta 03/25/24 Insurance did not cover Benlysta Now she is on Cellcept [facility] Medical History Prediabetes SLE glomerulonephritis syndrome History of pulmonary embolism Vitamin D deficiency Hypertriglyceridemia Hypothyroidism Surgical History Hx of tubal ligation Family History Father Family history unknown Mother Hypertension Diabetes Deep vein thrombosis CVA (cerebral vascular accident) Brother CVA (cerebral vascular accident), Onset Age: 48 Brother CVA (cerebral vascular accident), Onset Age: 38 Social History Household Members: None Housing: House Alcohol intake: former Patient Tobacco Use Status: Former Tobacco user e-Cigarette/Vaping Use: Never Used service: No Current occupational status: employed 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 Cognitive needs: No Hearing needs: No Vision needs: No Physical Exam Vital Signs: Last Vital Signs Pulse 76 03/25/24 15:36 BP 122/76 03/25/24 15:36 Pulse Ox 98 03/25/24 15:36 Oxygen Delivery Method Room Air 03/25/24 15:36 Const General: comfortable; No acute distress Orientation/consciousness: patient oriented x3 Eyes General: appearance normal, both eyes and all related structures Visual Penaloza: normal visual penaloza by confrontation Neck Neck: Yes supple and Yes no JVD Resp Effort & Inspection: normal respiratory effort and respiratory effort not decreased Auscultation: rhonchi Cardio Palpation: no palpable S3 and no palpable S4 Heart sounds: no rubs GI Inspection: Yes normal to inspection Palpation (GI): Soft to palpation Percussion: Yes normal to percussion Auscultation: normal bowel sounds General: Yes no CVA tenderness Back/Spine/Pelvis Back: no CVA tenderness Skin General skin exam: no petechiae and no purpura Neuro General: patient oriented x3 and no focal motor deficits Extrem General: No clubbing and No edema Results Reviewed Nephrology Results: Hgb 10.6 g/dl (12.0-16.0) L 03/21/24 WBC 5.6 X10*3/uL (4.8-10.8) 03/21/24 Plt Count 251 X10*3/uL (160-400) 03/21/24 Sodium 140 mmol/L (135-145) 03/21/24 Potassium 4.5 mmol/L (3.3-5.1) 03/21/24 Chloride 113 mmol/L (96-108) H 03/21/24 Carbon Dioxide 18 mmol/L (22-29) L 03/21/24 BUN 42 mg/dL (9-16) H 03/21/24 Creatinine 3.21 mg/dL (0.5-1.4) H 03/21/24 Calcium 9.9 mg/dL (8.4-10.2) 03/21/24 PTH Intact 269.5 pg/mL (8.7-77.1) H 03/21/24 Assessment & Plan Assessment & Plan (1) CKD (chronic kidney disease) stage 4, GFR 15-29 ml/min: Code(s): N18.4 - Chronic kidney disease, stage 4 (severe) Category: Medical Plan: Due to underlying lupus nephropathy. Advanced CKD No signs or symptoms of uremia. No absolute indication to start her on renal replacement therapy yet. She prob ably has burnt-out kidney disease at this point. Mild anemia in the setting of lupus and CKD. No indication for Epogen yet. We will screen for secondary hyperparathyroidism. Maintain blood pressure less than 130/80. Continue to avoid nephrotoxic agents including NSAIDs. Hypercalcemia - Decreased Calcitriol CA BACK TO NORMAL Watch PTH Decrease Calcium supplementation from 600mg BID to QD (2) Lupus (systemic lupus erythematosus): Comment: onset 8764-1327 Treated with Cytoxan and prednisone Coumadin throughout Cyclosporin 2005 DC due to epigastric pain CellCept 2008 up titrated to 3 g daily, developed worsening proteinuria Rituximab 2 doses, 2 weeks apart 2010 Believes that she took hydroxychloroquine and discontinued it due to tinnitus ?! Benlysta 02/2012 was helpful especially for skin lesions. Discontinued due to loss of insurance Acthar gel 2016 took it for about a year inconsistently Repeat kidney biopsy 04/2022 showed class 3 and 5 nephritis. Received 1 dose of rituximab 08/2022 with some improvement Benlysta 12/2023 Code(s): M32.9 - Systemic lupus erythematosus, unspecified Category: Medical Qualifiers: Systemic lupus erythematosus type: other Systemic lupus erythematosus organ involvement: glomerular disease Qualified Code(s): M32.14 - Glomerular disease in systemic lupus erythematosus (3) SLE glomerulonephritis syndrome: Comment: onset [id number] class 3 and class 5 nephritis, low C3, low C4 Repeat kidney biopsy 04/2022 showed class 3 and 5 nephritis. Received 1 dose of rituximab 08/2022 with some improvement Code(s): M32.14 - Glomerular disease in systemic lupus erythematosus Category: Medical Plan . Coding Level of Care Code Est Pt Level 4 (78508) Diagnoses CKD (chronic kidney disease) stage 4, GFR 15-29 ml/min N18.4 Other systemic lupus erythematosus with glomerular disease M32.14 Systemic lupus erythematosus type: other Systemic lupus erythematosus organ involvement: glomerular disease SLE glomerulonephritis syndrome M32.14
== END 2024-03-25 15:57 | disposition home or self-care (01) ==
PROVIDERS: PCP Physician Assistant; Visit Provider Internal Medicine Hypertension Specialist
DX: N18.4 Chronic kidney disease, stage 4 (severe) (principal); M32.14 Glomerular disease in systemic lupus erythematosus
CPT/HCPCS: 99214

== ENCOUNTER → 2024-03-25 15:24 | Outpatient (BNVA) | payer OTHER, MEDICAID, SELFPAY | PROVIDERS: PCP Physician Assistant; Visit Provider Internal Medicine Hypertension Specialist ==

== ENCOUNTER 2024-03-26 15:21 | Outpatient (AMB) | payer OTHER, MEDICAID, SELFPAY ==
[2024-03-26 15:27] LABS: Prothrombin Time Whole Bld POC 20.8 sec (11.1-13.5); ~PT, ~INR - Anti Coag Clinic 1.7 (0.9-1.1)
--- NOTE | 2024-03-26 15:40 | MHC.OFFVISCO ---
Intake Intake Visit Reasons: Anticoagulation Allergies rituximab [From Rituxan] Allergy (Severe, Verified 03/26/24 15:22) Anaphylaxis cephalexin [From Keflex] Allergy (Unknown, Verified 03/26/24 15:22) RED+ITCHY,RASH Cephalosporins [CEPHALOSPORINS] Allergy (Unknown, Verified 03/26/24 15:22) RED+ITCHY Sulfa (Sulfonamide Antibiotics) [SULFA(SULFONAMIDE ANTIBIOTICS)] Allergy (Unknown, Verified 03/26/24 15:22) RED+ITCHY retuxin Adverse Reaction (Severe, Uncoded 03/04/24 15:32) Abdominal Pain Medication List - Last Reconciled 03/26/24 by Stephanie Tran RN [4Life transfer factor PO BID] atorvastatin 20 mg PO BEDTIME 30 days calcitriol 0.25 mcg PO DAILY clobetasol 0.05% 1 appl topical DAILY erythromycin 1 appl ophthalmic (eye) DAILY 15 days fluocinonide 0.05% appl topical gabapentin 200 mg (2 x 100 mg) PO DAILY 30 days [KBU PO BID] levothyroxine 100 mcg PO DAILY lisinopril 2.5 mg PO DAILY loratadine 10 mg PO DAILY 14 days magnesium oxide 250 mg PO BID mycophenolate mofetil 500 mg PO BID prednisone Starting October 04, take 3 tabs daily for 1 month then remain on 2 tabs daily [Renuvo PO BID] sodium bicarbonate 650 mg PO BID [Super Detox PO] warfarin 5 mg See Protocol PO DAILY Nursing Note PT.MISSED ONE DOSE THIS WEEK. NO CP,SOB,DIET/MED CHANGES,FALLS OR SX OF BLEEDING. BOOST DOSE TO 5MGM 2 DAYS THEN RESUME USUAL DOSE AND FOLLOW-UP IN 2 WEEKS. ]GOOD UNDERSTANDING OF DOSING INSTR. 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
== END 2024-03-26 15:46 | disposition home or self-care (01) ==
LOC: HO.ACS 15:21
PROVIDERS: PCP Physician Assistant; Visit Provider Internal Medicine
DX: Z79.01 Long term (current) use of anticoagulants (principal)

== ENCOUNTER → 2024-03-26 15:21 | Outpatient (BNVA) | payer OTHER, MEDICAID, SELFPAY | PROVIDERS: PCP Physician Assistant; Visit Provider Internal Medicine | DX: I26.99 Other pulmonary embolism without acute cor pulmonale (principal); Z51.81 Encounter for therapeutic drug level monitoring; Z79.01 Long term (current) use of anticoagulants | CPT/HCPCS: 85610; 99211 ==

== ENCOUNTER 2024-04-02 15:52 | Outpatient (REF) | payer OTHER, MEDICAID, SELFPAY ==
[2024-04-02 16:08] LABS: MANUAL DIFF FLAG NO
[2024-04-02 18:21] LABS: Appearance Urine Clear; Color Urine Yellow; Glucose Urine UA 100 mg/dL (Negative); Leukocyte Esterase Urine Negative (Negative); Nitrite Urine Negative (Negative); Specific Gravity - Urine 1.015 (1.005-1.025); UMIC TRIGGER UA YES; Urine Blood Trace (Negative); Urine Ketones Negative (Negative); Urine Protein >=1000 (4+) mg/dL (Neg-Trace)
[2024-04-02 18:24] LABS: Bacteria Urine None Seen (None Seen); Hyaline Casts Urine 0-2 /LPF (0-2); RBC Urine 0-2 /HPF (0-2); Squamous Epithelial Cell Urine 0-2 /HPF (0-2); WBC Urine 0-5 /HPF (0-5)
[2024-04-02 18:26] LABS: Basophils Percent Auto 0.7 % (0-2); Eosinophils Absolute Auto 0.1 X10*3/uL (0.0-0.4); Eosinophils Percent Auto 1.9 % (0-4); Hematocrit 33.6 % (37.0-47.0); Imm Gran Abs Auto 0.03 X10*3/uL (0.00-0.03); Imm Gran Pct Auto 0.5 % (0.0-0.4); Lymphocytes Absolute Auto 1.1 X10*3/uL (1.2-4.9); Lymphocytes Percent Auto 18.4 % (20-40); Mean Corpuscular HGB Conc 32.7 g/dl (31.0-35.0); Mean Corpuscular Hemoglobin 30.3 pg (27.0-33.0); Mean Corpuscular Volume 92.6 fL (80.0-98.0); Mean Platelet Volume 11.3 fL (9.4-12.3); Monocytes Absolute Auto 0.3 X10*3/uL (0.1-1.2); Monocytes Percent Auto 5.5 % (2-11); Neutrophils Absolute Auto 4.3 x10*3/uL (2.0-8.3); Platelet Count 280 X10*3/uL (160-400); Red Blood Count 3.63 X10*6/uL (4.20-5.50); Red Cell Distribution Width 13.4 % (11.0-16.0); White Blood Count 5.9 X10*3/uL (4.8-10.8)
[2024-04-02 18:54] LABS: Creatinine Urine 95.29 mg/dL
[2024-04-02 18:59] LABS: Erythrocyte Sedimentation Rate 23 MM/HR (0-20)
[2024-04-02 19:08] LABS: Free T4 (Free Thyroxine) 0.94 ng/dL (0.71-1.85); TSH reflex Free T4 3.45 uIU/mL (0.32-4.0)
[2024-04-02 20:17] LABS: Protein/Creatinine Ratio, Ur 4.06 (<0.2); Total Protein Urine Random 387 mg/dL (<12)
[2024-04-04 19:07] LABS: Complement C3 60 mg/dL (83-193)
[2024-04-08 13:58] LABS: Anti DNA DS Antibody 3 IU/mL
== END 2024-04-02 15:53 | disposition home or self-care (01) ==
LOC: HO.LAB 15:52
PROVIDERS: Internal Medicine Endocrinology, Diabetes & Metabolism; Student in an Organized Health Care Education/Training Program; PCP Physician Assistant; Visit Provider Physician Assistant
DX: M32.14 Glomerular disease in systemic lupus erythematosus (principal); E78.1 Pure hyperglyceridemia; E03.8 Other specified hypothyroidism; E06.3 Autoimmune thyroiditis
CPT/HCPCS: 36415; 81001; 82570; 84156; 84439; 84443; 85025; 85652; 86160; 86225

== ENCOUNTER 2024-04-08 08:41 | Outpatient (AMB) | payer OTHER, MEDICAID, SELFPAY ==
--- NOTE | 2024-04-08 08:49 | A.OFFPC_ITS ---
Vital Signs 04/08/24 08:50 Height 5 ft Weight 131 lb 4 oz BMI 25.6 BP 120/68 Blood Pressure Location Lt brachial Position Sitting Pulse 89 Pulse Source Pulse Oximeter Pulse Oximetry (%) 98 Oxygen Delivery Method Room Air Intake Visit Reasons: Thyroid concerns Intake Note: Patient is here to follow up on Thyroid concern. Manager Adobe Required: No Residence Director: Not Required per policy Accompanied by: Self / Same As Patient Allergies rituximab [From Rituxan] Allergy (Severe, Verified 04/08/24 08:59) Anaphylaxis cephalexin [From Keflex] Allergy (Unknown, Verified 04/08/24 08:59) RED+ITCHY,RASH Cephalosporins [CEPHALOSPORINS] Allergy (Unknown, Verified 04/08/24 08:59) RED+ITCHY Sulfa (Sulfonamide Antibiotics) [SULFA(SULFONAMIDE ANTIBIOTICS)] Allergy (Unknown, Verified 04/08/24 08:59) RED+ITCHY mycophenolate mofetil [From CellCept] Adverse Reaction (Intermediate, Verified 04/08/24 09:04) rash retuxin Adverse Reaction (Severe, Uncoded 04/08/24 08:59) Abdominal Pain Medication List - Last Reconciled 04/08/24 by Franklin Sanchez PA-C [4Life transfer factor PO BID] atorvastatin 20 mg PO BEDTIME 30 days calcitriol 0.25 mcg PO DAILY clobetasol 0.05% 1 appl topical DAILY erythromycin 1 appl ophthalmic (eye) DAILY 15 days fluocinonide 0.05% appl topical gabapentin 200 mg (2 x 100 mg) PO DAILY 30 days [KBU PO BID] levothyroxine 100 mcg PO DAILY lisinopril 2.5 mg PO DAILY loratadine 10 mg PO DAILY 14 days magnesium oxide 250 mg PO BID mycophenolate mofetil 500 mg PO BID prednisone Starting October 04, take 3 tabs daily for 1 month then remain on 2 tabs daily [Renuvo PO BID] sodium bicarbonate 650 mg PO BID [Super Detox PO] warfarin 5 mg See Protocol PO DAILY Tobacco use date assessed: 04/08/24 Dental Screening Dental Screen Date: 08/14/23 HPI Thyroid concerns HPI Details Patient is a 58-year-old female here today for a follow-up visit. Patient has a past medical history significant for SLE, hypothyroidism, hypertriglyceridemia, chronic anticoagulation use, former smoker. Concern--> had original concerned about her thyroid as she has been having intermittent bilateral knee swelling and pain. We did check her TSH which is now just above 3 from being a bit low in January of 2024. Her levothyroxine dose is now 100 mcg. Of note has gained weight over the last few months. . 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 Most recent creatinine improved at 2.4 . Was seen seeing a dietition and would like to see a dietitian again.? Has been able to lose a significant amount weight due to lifestyle changes. Continues on anticoagulation without any overt signs of bleeding. Also followed by a major account representative and considering dialysis.? Has gotten 2nd opinion through major account representative and [place] though no medication was recommended. Again dialysis was considered.. Has trialed retuxin though had a terrible adverse reaction. ?? Has use magnesium supplementation in the past with good effect. At this point there is no further treatment that has been covered by insurance or patient has been able to tolerate for her glomerular nephritis. She has establish care with a gas appliance mechanic here in [place] to help control her lupus likely causing the nephritis. She has try Cellcept though again had side effects dizziness and rash and has stopped medication. Will follow echo with Rheumatology for further instruction ? .. .. Hypothyroidism:? Has noted weight gain over the last several months. Patient's thyroid has now normalized on lower dose levothyroxine 100 mcg .? Continues to follow Endocrinology as well . ? Hypertriglyceridemia: Continues to have elevated triglycerides. Has been tryi ng to manager basketball triglycerides with dietary modifications. Has upcoming of appointment with data entry machine operator [facility] Medical History Prediabetes SLE glomerulonephritis syndrome History of pulmonary embolism Vitamin D deficiency Hypertriglyceridemia Hypothyroidism Surgical History Hx of tubal ligation Family History Father Family history unknown Mother Hypertension Diabetes Deep vein thrombosis CVA (cerebral vascular accident) Brother CVA (cerebral vascular accident), Onset Age: 48 Brother CVA (cerebral vascular accident), Onset Age: 38 Social History Household Members: None Housing: House Alcohol intake: former Patient Tobacco Use Status: Former Tobacco user e-Cigarette/Vaping Use: Never Used Second Hand Smoke Exposure: Yes service: No Current occupational status: employed 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 Gino Young, Seble Chahal, Dennis Zendejas and colleagues, with an educational clara from [email or web address]. Review of Systems Const Denies headache(s) Eyes Denies loss of vision ENT Denies vertigo, Denies dizziness, Denies headache(s) and Denies sore throat Card Denies chest pain, Denies leg edema and Denies lightheadedness Resp Denies cough, Denies hemoptysis and Denies wheezing GI Denies abdominal pain, Denies melena, Denies constipation, Denies diarrhea and Denies vomiting Denies urinary frequency, Denies dysuria and Denies urinary urgency Musc Denies arthralgias, Denies joint swelling, Denies numbness and Denies tingling Neuro Denies Abnormal speech present, Denies behavioral changes, Denies vertigo, Denies dizziness, Denies headache(s), Denies loss of vision, Denies memory loss, Denies numbness and Denies tingling Psych Denies anxiety, Denies behavioral changes, Denies depression, Denies memory loss and Denies panic attacks Davie/Lymph Denies easy bleeding and Denies easy bruising Aller/Immun Denies wheezing Physical exam (Primary Care) Vital Signs: Last Vital Signs Pulse 89 04/08/24 08:50 BP 120/68 04/08/24 08:50 Pulse Ox 98 04/08/24 08:50 Oxygen Delivery Method Room Air 04/08/24 08:50 BMI result Body Mass Index 25.6 Tobacco/Smoking Status: Tobacco use Status Tobacco use date assessed 04/08/24 04/08/24 08:55 Patient Tobacco Use Status Former Tobacco user 04/08/24 08:55 e-Cigarette/Vaping Use Never Used 04/08/24 08:55 Thrive Assessment: Date of Thrive Assessment Date Thrive assessed 08/14/23 04/08/24 08:55 Const General: healthy appearing, no acute distress, alert and awake Nutritional Appearance: well nourished Orientation/consciousness: oriented to person, oriented to place and oriented to time HENMT Ears: TM's normal bilaterally General nose exam: Normal nasal mucous membranes and turbinates present Eyes Conjunctivae: conjunctivae normal Sclerae: sclerae normal Pupils: Equal, round and reactive pupils present Neck Neck: Yes no lymphadenopathy and Yes no JVD Thyroid: Thyroid normal Carotids: no bruits Resp Effort & Inspection: normal respiratory effort and not tachypneic Auscultation: no crackles, no rales, no rhonchi and no wheezes Cardio Rate: regular rate Rhythm: regular rhythm Heart sounds: no murmurs and normal S1 and S2 GI Palpation (GI): Soft to palpation, nontender, no hepatomegaly and no splenomegaly Auscultation: normal bowel sounds Skin General skin exam: no rashes or lesions noted and dry skin Neuro General: oriented to person, oriented to place and oriented to time Cranial nerves: Yes Equal, round and reactive pupils present Speech: No Abnormal speech present Gait exam (Neuro): Normal gait present Motor exam (neuro): no tremor noted Extrem Right upper extremity: full ROM Left upper extremity: full ROM Right lower extremity: full ROM; no edema Left lower extremity: full ROM; no edema Psych Mental Status: mental status grossly normal Speech and movement: Normal speech and movement present Affect: normal affect Attitude: cooperative Thought process: Normal thought process present Assessment and Plan Assessment & Plan (1) SLE glomerulonephritis syndrome: Comment: onset [id number] class 3 and class 5 nephritis, low C3, low C4 Repeat kidney biopsy 04/2022 showed class 3 and 5 nephritis. Received 1 dose of rituximab 08/2022 with some improvement Code(s): M32.14 - Glomerular disease in systemic lupus erythematosus Plan: As per HPI patient has lupus glomerulonephritis. Most recent creatinine at 2.4, GFR at 20 Followed by major account representative though reports she has no further follow-up. Has tried multiple medications for her glomerulonephritis though had intolerant side effects. Has got a 2nd opinion with a major account representative in [place] though no medication recomm ended. ? Renal transplant verses dialysis consider. She has establish care with Rheumatology and has tried new medication (celllcept) though again had side effect of rash, lightheadedness and fatigue and has discontinued the medication. (2) Hypertriglyceridemia: Code(s): E78.1 - Pure hyperglyceridemia Plan: Has establish care with a dietitian. Has history of hypertriglyceridemia. Also needs to follow low protein low sodium diet due to her glomerular nephritis. (3) Hypothyroidism: Code(s): E03.9 - Hypothyroidism, unspecified Qualifiers: Hypothyroidism type: due to Yaa's thyroiditis Qualified Code(s): E03.8 - Other specified hypothyroidism; E06.3 - Autoimmune thyroiditis Plan: Has noted weight gain over the last few months.. Continues on levothyroxine 100 mcg. Most recent TSH has been stable. Does follow Endocrinology here in [place]. (4) Lupus (systemic lupus erythematosus): Comment: onset [id number] Treated with Cytoxan and prednisone Coumadin throughout Cyclosporin 2005 DC due to epigastric pain CellCept 2008 up titrated to 3 g daily, developed worsening proteinuria Rituximab 2 doses, 2 weeks apart 2010 Believes that she took hydroxychloroquine and discontinued it due to tinnitus ?! Benlysta 02/2012 was helpful especially for skin lesions. Discontinued due to loss of insurance Acthar gel 2016 took it for about a year inconsistently Repeat kidney biopsy 04/2022 showed class 3 and 5 nephritis. Received 1 dose of rituximab 08/2022 with some improvement Benlysta 12/2023 Code(s): M32.9 - Systemic lupus erythematosus, unspecified Qualifiers: Systemic lupus erythematosus type: other Systemic lupus erythematosus organ involvement: glomerular disease Qualified Code(s): M32.14 - Glomerular disease in systemic lupus erythematosus Plan: Has seen a gas appliance mechanic for her lupus with glomerulonephritis. Has tried a new medication though unfortunately had side effect. Will be following up with Rheumatology to discuss further medications to control her lupus. 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
[2024-04-08 08:50] VITALS: BP 120/68; PULSE 89; O2SAT 98; BMI 25.6
== END 2024-04-08 09:22 | disposition home or self-care (01) ==
PROVIDERS: PCP Physician Assistant; Visit Provider Physician Assistant
DX: M32.14 Glomerular disease in systemic lupus erythematosus (principal); E78.1 Pure hyperglyceridemia; E03.8 Other specified hypothyroidism; E06.3 Autoimmune thyroiditis
CPT/HCPCS: 99214

== ENCOUNTER 2024-04-09 15:17 | Outpatient (AMB) | payer OTHER, MEDICAID, SELFPAY ==
--- NOTE | 2024-04-09 15:23 | MHC.OFFVISCO ---
Intake Intake Visit Reasons: Anticoagulation Allergies rituximab [From Rituxan] Allergy (Severe, Verified 04/09/24 15:18) Anaphylaxis cephalexin [From Keflex] Allergy (Unknown, Verified 04/09/24 15:18) RED+ITCHY,RASH Cephalosporins [CEPHALOSPORINS] Allergy (Unknown, Verified 04/09/24 15:18) RED+ITCHY Sulfa (Sulfonamide Antibiotics) [SULFA(SULFONAMIDE ANTIBIOTICS)] Allergy (Unknown, Verified 04/09/24 15:18) RED+ITCHY mycophenolate mofetil [From CellCept] Adverse Reaction (Intermediate, Verified 04/09/24 15:18) rash retuxin Adverse Reaction (Severe, Uncoded 04/09/24 15:18) Abdominal Pain Medication List - Last Reconciled 04/09/24 by Shana Allen RN [4Life transfer factor PO BID] atorvastatin 20 mg PO BEDTIME 30 days calcitriol 0.25 mcg PO DAILY clobetasol 0.05% 1 appl topical DAILY erythromycin 1 appl ophthalmic (eye) DAILY 15 days fluocinonide 0.05% appl topical gabapentin 200 mg (2 x 100 mg) PO DAILY 30 days [KBU PO BID] levothyroxine 100 mcg PO DAILY lisinopril 2.5 mg PO DAILY loratadine 10 mg PO DAILY 14 days magnesium oxide 250 mg PO BID mycophenolate mofetil 500 mg PO BID prednisone Starting October 04, take 3 tabs daily for 1 month then remain on 2 tabs daily [Renuvo PO BID] sodium bicarbonate 650 mg PO BID [Super Detox PO] warfarin 5 mg See Protocol PO DAILY Nursing Note INR 3.6-?? out of therapeutic range of 2-3 Medications and supplements reviewed Patient status: c.o fatigue Medications or supplements: no changes Diet: same Denies any signs and symptoms of bleeding or clotting or unusual bruising Bleeding, bruising, clotting discussed Nutritional guidance given: eat a green today Dose: already took today- hold tomm 2.5mg then cont reg dosing- 5mg x 2, 2.5mg x 5 F/U INR Date : 2 weeks Patient verbalizing understanding of instructions given. Anti-Coag Initial Assessment Social Hx Patient Tobacco Use Status: Former Tobacco user alcohol intake: former Alcohol intake frequency: does not drink Coding Level of Care Code Est Patient Level 1 Diagnoses Current use of anticoagulant therapy Z79.01 Assessment & Plan Assessment & Plan (1) Current use of anticoagulant therapy: Code(s): Z79.01 - long term acute care registered nurse (current) use of anticoagulants Category: Medical
[2024-04-09 15:25] LABS: Prothrombin Time Whole Bld POC 42.8 sec (11.1-13.5); ~PT, ~INR - Anti Coag Clinic 3.6 (0.9-1.1)
== END 2024-04-09 15:37 | disposition home or self-care (01) ==
LOC: HO.ACS 15:17
PROVIDERS: PCP Physician Assistant; Visit Provider Internal Medicine
DX: Z79.01 Long term (current) use of anticoagulants (principal)

== ENCOUNTER → 2024-04-09 15:17 | Outpatient (BNVA) | payer OTHER, MEDICAID, SELFPAY | PROVIDERS: PCP Physician Assistant; Visit Provider Internal Medicine | DX: I26.99 Other pulmonary embolism without acute cor pulmonale (principal); Z79.01 Long term (current) use of anticoagulants; Z51.81 Encounter for therapeutic drug level monitoring | CPT/HCPCS: 85610; 99211 ==

== ENCOUNTER 2024-04-22 14:37 | Outpatient (AMB) | payer OTHER, MEDICAID, SELFPAY ==
--- NOTE | 2024-04-22 14:40 | MHC.OFFVIS ---
Vital Signs 04/22/24 14:47 Height 5 ft Weight 131 lb 13.383 oz BMI 25.7 BP 122/74 Blood Pressure Location Rt brachial Position Sitting Pulse 73 Pulse Source Pulse Oximeter Pulse Oximetry (%) 97 Oxygen Delivery Method Room Air Intake Visit Reasons: SLE Intake Note: Patient presents for SLE. Allergies rituximab [From Rituxan] Allergy (Severe, Verified 04/22/24 14:44) Anaphylaxis cephalexin [From Keflex] Allergy (Unknown, Verified 04/22/24 14:44) RED+ITCHY,RASH Cephalosporins [CEPHALOSPORINS] Allergy (Unknown, Verified 04/22/24 14:44) RED+ITCHY Sulfa (Sulfonamide Antibiotics) [SULFA(SULFONAMIDE ANTIBIOTICS)] Allergy (Unknown, Verified 04/22/24 14:44) RED+ITCHY mycophenolate mofetil [From CellCept] Adverse Reaction (Intermediate, Verified 04/22/24 14:44) rash cellcept Allergy (Severe, Uncoded 04/22/24 14:46) Hives retuxin Adverse Reaction (Severe, Uncoded 04/09/24 15:18) Abdominal Pain Medication List - Last Reconciled 04/22/24 by Federico Stallworth MD [4Life transfer factor PO BID] atorvastatin 20 mg PO BEDTIME 30 days calcitriol 0.25 mcg PO DAILY clobetasol 0.05% 1 appl topical DAILY erythromycin 1 appl ophthalmic (eye) DAILY 15 days fluocinonide 0.05% appl topical gabapentin 200 mg (2 x 100 mg) PO DAILY 30 days [KBU PO BID] levothyroxine 100 mcg PO DAILY lisinopril 2.5 mg PO DAILY loratadine 10 mg PO DAILY 14 days magnesium oxide 250 mg PO BID mycophenolate mofetil 500 mg PO BID prednisone Starting October 04, take 3 tabs daily for 1 month then remain on 2 tabs daily [Renuvo PO BID] sodium bicarbonate 650 mg PO BID [Super Detox PO] warfarin 5 mg See Protocol PO DAILY HPI Comments Details: Initial history This is a 58-year-old female with SLE who presents for follow-up. Her co-pay for Benlysta was too high so she had to discontinue it over a month ago. I switched her to CellCept. She took 1 dose and developed a rash on her trunk. It has resolved now. She continues to take prednisone 2.5 mg daily. She states that she has minimal morning stiffness. She denies any swollen joints. Denies any skin rashes other than the rash she developed from CellCept. Per Dr. Andino in 2019: Patient was diagnosed with lupus in 2002 when she was admitted in the ICU with chest pain, leg swelling, fever,rash and shortness of breath. 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 She also had alopecia, joint pains, skin eruptions. She has questionable Raynaud, occasional oral ulcers. She recieved cytoxan in 2005, was tried on cyclosporin which was discontinued sec to epigastric pain.She was started on cellcept in 2008 sec to ongoing proteinuria. Inspite of increasing it to 3gms she continued to have ongoing proteinuria. She has recieved 2 doses of Rituximab 500mg , 2 weeks apart in 2010. Since February 2012 she was started on Benlysta for her skin symptoms with improvement. She had been getting it until she lost her insurance late last year. She feels the Benlysta really helped her with the rash. Benlysta was stopped . They she was out on Acthar gel but it was stopped because of insurance coverage. This was in 2017, she took it for a year but not a complete year. It never was consistent. ?She is currently taking plaquenil, enalapril, and one more (she will call to give us the name) and coumadin. She is using clobetasol for her rash and it is helping. ?Bone density: DIAGNOSIS: Normal bone density based on the lowest T-score value of?-0.9 in the femoral neck applying World Health Organization criteria.?Hands radiographs: Normal right and left hand studies without evidence of osteoarthritis or erosive arthritides. [facility] Medical History Prediabetes SLE glomerulonephritis syndrome History of pulmonary embolism Vitamin D deficiency Hypertriglyceridemia Hypothyroidism Surgical History Hx of tubal ligation Family History Father Family history unknown Mother Hypertension Diabetes Deep vein thrombosis CVA (cerebral vascular accident) Brother CVA (cerebral vascular accident), Onset Age: 48 Brother CVA (cerebral vascular accident), Onset Age: 38 Social History Household Members: None Housing: House Alcohol intake: former Patient Tobacco Use Status: Former Tobacco user e-Cigarette/Vaping Use: Never Used Second Hand Smoke Exposure: Yes service: No Current occupational status: employed 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 Cognitive needs: No Hearing needs: No Vision needs: No Female Reproductive History Menstrual Total pregnancies: 3 Number of Living Children: 2 Ab spontaneous: 1 Review of Systems Musc Reports arthralgias and Denies joint swelling Physical Exam Vital Signs: Last Vital Signs Pulse 73 04/22/24 14:47 BP 122/74 04/22/24 14:47 Pulse Ox 97 04/22/24 14:47 Oxygen Delivery Method Room Air 04/22/24 14:47 BMI result Body Mass Index 25.7 Const General: cooperative, healthy appearing and comfortable Nutritional Appearance: average body habitus Orientation/consciousness: patient oriented x3 Limitations: no limitations HEENT Head: Yes normocephalic and Yes atraumatic Mouth: moist mucous membranes Resp Effort & Inspection: normal respiratory effort and able to speak in complete sentences Auscultation: clear to auscultation bilaterally Cardio Rate: regular rate Rhythm: regular rhythm Skin General skin exam: no rashes or lesions noted Neuro General: patient oriented x3 Extrem Other: No active synovitis Normal nailfold capillaroscopy Results Reviewed Results Reviewed: Right kidney biopsy 04/2022: [facility] Dept. of Pathology (their number [id number]): - Focal lupus nephritis and membranous lupus nephritis (class III + V, pending EM studies). - Focal endocapillary proliferation (2 glomeruli, 7%) and a singular cellular crescent (3%). - Global sclerosis of 16 of 29 glomeruli (55%) with severe interstitial fibrosis and tubular atrophy involving 60-70% of the cortical area. - Electron microscopy has been initiated to evaluate the extent and location of electron dense deposits,[facility] Dept. of Pathology (their number [id number]): - Focal lupus nephritis and membranous lupus nephritis (class III + V, pending EM studies). - Focal endocapillary proliferation (2 glomeruli, 7%) and a singular cellular crescent (3%). - Global sclerosis of 16 of 29 glomeruli (55%) with severe interstitial fibrosis and tubular atrophy involving 60-70% of the cortical area. - Electron microscopy has been initiated to evaluate the extent and location of electron dense deposits, which could potentially alter classification, to be reported in an addendum. - Modified NIH lupus nephritis activity index: 7. 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 - Modified NIH lupus nephritis activity index: 7. Chronicity index: 9 Note: The findings support combined membranous (class V) and focal lupus nephritis (class III), pending electron microscopy to confirm the extent and location of electron dense deposits Labs 06/2023 C3 97 (83-193) C4 22 (15-57) Beta 2 glycoprotein IgG/beta 2 glycoprotein IgA/Be2 glycoprotein IgM/phosphatidylserine IgG/phosphatidylserine IgM/cardiolipin IgA/cardiolipin IgG/cardiolipin IgM all negative Creatinine 2.61 with GFR 21 Sodium/potassium/calcium/phosphate all normal PTH 205 (16-77) CBC unremarkable except for mild anemia hemoglobin 11.4 (>11.7) Platelets 310 WBC 5.9 Total iron 36 (45-160) TIBC 270 250-450 Iron saturation 13 (16-45%) Ferritin 75 nl Vitamin-D 22 low TYRON IFA negative DsDNA 2 (-ve) Albumin to creatinine ratio 2286 (<30) Protein to creatinine ratio 4.6 grams Assessment & Plan Assessment & Plan (1) Lupus (systemic lupus erythematosus): Comment: onset 8158-9956 Treated with Cytoxan and prednisone Coumadin throughout Cyclosporin 2005 DC due to epigastric pain CellCept 2008 up titrated to 3 g daily, developed worsening proteinuria Rituximab 2 doses, 2 weeks apart 2010 Believes that she took hydroxychloroquine and discontinued it due to tinnitus ?! Benlysta 02/2012 was helpful especially for skin lesions. Discontinued due to loss of insurance Acthar gel 2016 took it for about a year inconsistently Repeat kidney biopsy 04/2022 showed class 3 and 5 nephritis. Received 1 dose of rituximab 08/2022 with some improvement Benlysta 12/2023. DC 02/2024. Could not afford co-pay CellCept tried again 02/2024. DC'd after 1 dose due to rash Code(s): M32.9 - Systemic lupus erythematosus, unspecified Category: Medical Qualifiers: Systemic lupus erythematosus type: other Systemic lupus erythematosus organ involvement: glomerular disease Qualified Code(s): M32.14 - Glomerular disease in systemic lupus erythematosus Plan: This is a 58-year-old female with SLE who presents for follow-up. Patient discontinued Benlysta as her co-pay was too high. She had a rash after 1 dose of CellCept. She remains on prednisone 2.5 mg daily. I do not see signs of active SLE. I had a long conversation with patient today regarding her SLE management. Her main lupus manifestation is her lupus nephritis. It seems that it is burnt out. Otherwise clinically there are no signs of active SLE that require escalation of DMARDs at this time. Discussed with patient that majority of SLE patient was main manifestation is lupus nephritis, usually lupus activity usually declines once patient have significant CKD. At this time I do not see any compelling reason to add DMARDs. I reviewed Dr. Morrissey's notes. It looks like patient's kidney disease is burnt out, there is significant scarring on her most recent kidney biopsy and further DMARDs would not help much Advised patient to try reducing her prednisone to 2.5 mg every other day monitor her symptoms. If she starts having more joint complaints, can go back up to 2.5 mg daily Labs before next visit in 4 months (2) SLE glomerulonephritis syndrome: Comment: onset 3138-6000 class 3 and class 5 nephritis, low C3, low C4 Repeat kidney biopsy 04/2022 showed class 3 and 5 nephritis. Received 1 dose of rituximab 08/2022 with some improvement Code(s): M32.14 - Glomerular disease in systemic lupus erythematosus Category: Medical Plan: Continue to follow-up with Nephrology Plan I spent 25 minutes reviewing patient's chart, evaluating patient, ordering diagnostic workup, counseling patient and documenting in the chart Orders: Orders C Reactive Protein 4 Months M3.14 - Glomerular disease in systemic lupus erythematosus Erythrocyte Sedimentation Rate 4 Months .14 - Glomerular disease in systemic lupus erythematosus UA w Microscopic 4 Months .14 - Glomerular disease in systemic lupus erythematosus Anti DNA DS Antibody 4 Months .14 - Glomerular disease in systemic lupus erythematosus Complement C3 4 Months .14 - Glomerular disease in systemic lupus erythematosus Complement C4 4 Months M32.14 - Glomerular disease in systemic lupus erythematosus Protein Creatinine Ratio, Ur 4 Months M3. - Glomerular disease in systemic lupus erythematosus Complete Blood Count Auto Diff 4 Months . - Glomerular disease in systemic lupus erythematosus Comprehensive Met. Panel 4 Months - Glomerular disease in systemic lupus erythematosus Coding Level of Care Code Est Pt Level 4 (22760) Diagnoses Other systemic lupus erythematosus with glomerular disease M309.19 Systemic lupus erythematosus type: other Systemic lupus erythematosus organ involvement: glomerular disease SLE glomerulonephritis syndrome M32.14
[2024-04-22 14:47] VITALS: BP 122/74; PULSE 73; O2SAT 97; BMI 25.7
== END 2024-04-22 15:21 | disposition home or self-care (01) ==
PROVIDERS: PCP Physician Assistant; Visit Provider Student in an Organized Health Care Education/Training Program
DX: M32.14 Glomerular disease in systemic lupus erythematosus (principal)
CPT/HCPCS: 99214

== ENCOUNTER → 2024-04-22 14:37 | Outpatient (BNVA) | payer OTHER, MEDICAID, SELFPAY | PROVIDERS: PCP Physician Assistant; Visit Provider Student in an Organized Health Care Education/Training Program ==

== ENCOUNTER 2024-04-30 15:03 | Outpatient (AMB) | payer OTHER, MEDICAID, SELFPAY ==
[2024-04-30 15:18] LABS: Prothrombin Time Whole Bld POC 28.4 sec (11.1-13.5); ~PT, ~INR - Anti Coag Clinic 2.4 (0.9-1.1)
--- NOTE | 2024-04-30 15:41 | MHC.OFFVISCO ---
Intake Intake Visit Reasons: Anticoagulation Allergies rituximab [From Rituxan] Allergy (Severe, Verified 04/30/24 15:04) Anaphylaxis cephalexin [From Keflex] Allergy (Unknown, Verified 04/30/24 15:04) RED+ITCHY,RASH Cephalosporins [CEPHALOSPORINS] Allergy (Unknown, Verified 04/30/24 15:04) RED+ITCHY Sulfa (Sulfonamide Antibiotics) [SULFA(SULFONAMIDE ANTIBIOTICS)] Allergy (Unknown, Verified 04/30/24 15:04) RED+ITCHY mycophenolate mofetil [From CellCept] Adverse Reaction (Intermediate, Verified 04/30/24 15:04) rash cellcept Allergy (Severe, Uncoded 04/22/24 14:46) Hives retuxin Adverse Reaction (Severe, Uncoded 04/09/24 15:18) Abdominal Pain Medication List - Last Reconciled 04/30/24 by Stephanie Tran RN [4Life transfer factor PO BID] atorvastatin 20 mg PO BEDTIME 30 days calcitriol 0.25 mcg PO DAILY clobetasol 0.05% 1 appl topical DAILY erythromycin 1 appl ophthalmic (eye) DAILY 15 days fluocinonide 0.05% appl topical gabapentin 200 mg (2 x 100 mg) PO DAILY 30 days [KBU PO BID] levothyroxine 100 mcg PO DAILY lisinopril 2.5 mg PO DAILY loratadine 10 mg PO DAILY 14 days magnesium oxide 250 mg PO BID mycophenolate mofetil 500 mg PO BID prednisone Starting October 04, take 3 tabs daily for 1 month then remain on 2 tabs daily [Renuvo PO BID] sodium bicarbonate 650 mg PO BID [Super Detox PO] warfarin 5 mg See Protocol PO DAILY Nursing Note NO CP,SOB,DIET/MED CHANGES,FALLS OR SX OF BLEEDING. CONTINUE PRESENT DOSE AND FOLLOW-UP IN 3 WEEKS. GOOD UNDERSTANDING OF DOSING INSTR. Anti-Coag Initial Assessment Social Hx Patient Tobacco Use Status: Former Tobacco user alcohol intake: former Alcohol intake frequency: does not drink Coding Level of Care Code Est Patient Level 1 Diagnoses Current use of anticoagulant therapy Z79.01 Results AMB INR Fingerstick AMB INR Fingerstick 2.4 Last Edit by Stephanie Tran RN on 04/30/24 15:15 Assessment & Plan Assessment & Plan (1) Current use of anticoagulant therapy: Code(s): Z79.01 - USP (current) use of anticoagulants Category: Medical
== END 2024-04-30 15:43 | disposition home or self-care (01) ==
LOC: HO.ACS 15:03
PROVIDERS: PCP Physician Assistant; Visit Provider Internal Medicine
DX: Z79.01 Long term (current) use of anticoagulants (principal)

== ENCOUNTER → 2024-04-30 15:03 | Outpatient (BNVA) | payer OTHER, MEDICAID, SELFPAY | PROVIDERS: PCP Physician Assistant; Visit Provider Internal Medicine | DX: I26.99 Other pulmonary embolism without acute cor pulmonale (principal); Z79.01 Long term (current) use of anticoagulants; Z51.81 Encounter for therapeutic drug level monitoring | CPT/HCPCS: 85610; 99211 ==

== ENCOUNTER 2024-05-21 15:09 | Outpatient (AMB) | payer OTHER, MEDICAID, SELFPAY ==
--- NOTE | 2024-05-21 15:17 | MHC.OFFVISCO ---
Intake Intake Visit Reasons: Anticoagulation Allergies rituximab [From Rituxan] Allergy (Severe, Verified 05/21/24 15:13) Anaphylaxis cephalexin [From Keflex] Allergy (Unknown, Verified 05/21/24 15:13) RED+ITCHY,RASH Cephalosporins [CEPHALOSPORINS] Allergy (Unknown, Verified 05/21/24 15:13) RED+ITCHY Sulfa (Sulfonamide Antibiotics) [SULFA(SULFONAMIDE ANTIBIOTICS)] Allergy (Unknown, Verified 05/21/24 15:13) RED+ITCHY mycophenolate mofetil [From CellCept] Adverse Reaction (Intermediate, Verified 05/21/24 15:13) rash cellcept Allergy (Severe, Uncoded 05/21/24 15:13) Hives retuxin Adverse Reaction (Severe, Uncoded 05/21/24 15:13) Abdominal Pain Medication List - Last Reconciled 05/21/24 by Shana Allen RN [4Life transfer factor PO BID] atorvastatin 20 mg PO BEDTIME 30 days calcitriol 0.25 mcg PO DAILY clobetasol 0.05% 1 appl topical DAILY erythromycin 1 appl ophthalmic (eye) DAILY 15 days fluocinonide 0.05% appl topical gabapentin 200 mg (2 x 100 mg) PO DAILY 30 days [KBU PO BID] levothyroxine 100 mcg PO DAILY lisinopril 2.5 mg PO DAILY loratadine 10 mg PO DAILY 14 days magnesium oxide 250 mg PO BID mycophenolate mofetil 500 mg PO BID prednisone Starting October 04, take 3 tabs daily for 1 month then remain on 2 tabs daily [Renuvo PO BID] sodium bicarbonate 650 mg PO BID [Super Detox PO] warfarin 5 mg See Protocol PO DAILY Nursing Note INR: 3.0- in therapeutic range of 2-3 Medications and supplements reviewed- no changes No changes in health, diet, medications, or supplements, Denies any signs and symptoms of bleeding or bruising or clotting. 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
[2024-05-21 15:19] LABS: Prothrombin Time Whole Bld POC 36.6 sec (11.1-13.5)
== END 2024-05-21 15:39 | disposition home or self-care (01) ==
LOC: HO.ACS 15:09
PROVIDERS: PCP Physician Assistant; Visit Provider Internal Medicine
DX: Z79.01 Long term (current) use of anticoagulants (principal)

== ENCOUNTER → 2024-05-21 15:09 | Outpatient (BNVA) | payer OTHER, MEDICAID, SELFPAY | PROVIDERS: PCP Physician Assistant; Visit Provider Internal Medicine | DX: I26.99 Other pulmonary embolism without acute cor pulmonale (principal); Z79.01 Long term (current) use of anticoagulants; Z51.81 Encounter for therapeutic drug level monitoring | CPT/HCPCS: 85610; 99211 ==

== ENCOUNTER 2024-06-12 16:44 | Outpatient (REF) | payer OTHER, MEDICAID, SELFPAY ==
[2024-06-12 17:14] LABS: Appearance Urine Clear; Color Urine Yellow; Glucose Urine UA 100 mg/dL (Negative); Leukocyte Esterase Urine Negative (Negative); Nitrite Urine Negative (Negative); UMIC TRIGGER UA YES; Urine Blood Moderate (2+) (Negative); Urine Ketones Negative (Negative); Urine Protein 300 (3+) mg/dL (Neg-Trace)
[2024-06-12 17:28] LABS: Anion Gap 11 (12-20); Blood Urea Nitrogen 43 mg/dL (9-16); Carbon Dioxide 21 mmol/L (22-29); Chloride 112 mmol/L (96-108); Estimated Glomerular Filt Rate 19; Glucose Random 89 mg/dL (60-115); Potassium 4.3 mmol/L (3.3-5.1); Sodium 140 mmol/L (135-145)
[2024-06-12 17:30] LABS: Bacteria Urine None Seen (None Seen); Hyaline Casts Urine 0-2 /LPF (0-2); RBC Urine 0-2 /HPF (0-2); WBC Urine 0-5 /HPF (0-5)
== END 2024-06-12 16:45 | disposition home or self-care (01) ==
LOC: HO.LAB 16:44
PROVIDERS: PCP Physician Assistant; Visit Provider Internal Medicine Hypertension Specialist
DX: N18.4 Chronic kidney disease, stage 4 (severe) (principal)
CPT/HCPCS: 36415; 80048; 81001

== ENCOUNTER 2024-06-17 15:06 | Outpatient (AMB) | payer OTHER, MEDICAID, SELFPAY ==
[2024-06-17 15:26] VITALS: BP 118/76; PULSE 83; O2SAT 97; BMI 26.0
--- NOTE | 2024-06-17 15:26 | HO.NEPHOV ---
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 Accompanied by: Self / Same As Patient Allergies rituximab [From Rituxan] Allergy (Severe, Verified 06/17/24 15:27) Anaphylaxis cephalexin [From Keflex] Allergy (Unknown, Verified 06/17/24 15:27) RED+ITCHY,RASH Cephalosporins [CEPHALOSPORINS] Allergy (Unknown, Verified 06/17/24 15:27) RED+ITCHY Sulfa (Sulfonamide Antibiotics) [SULFA(SULFONAMIDE ANTIBIOTICS)] Allergy (Unknown, Verified 06/17/24 15:27) RED+ITCHY mycophenolate mofetil [From CellCept] Adverse Reaction (Intermediate, Verified 06/17/24 15:27) rash cellcept Allergy (Severe, Uncoded 05/21/24 15:13) Hives retuxin Adverse Reaction (Severe, Uncoded 05/21/24 15:13) Abdominal Pain Medication List - Last Reconciled 06/17/24 by Roe Morrissey MD [4Life transfer factor PO BID] atorvastatin 20 mg PO BEDTIME 30 days calcitriol 0.25 mcg PO DAILY clobetasol 0.05% 1 appl topical DAILY erythromycin 1 appl ophthalmic (eye) DAILY 15 days fluocinonide 0.05% appl topical gabapentin 200 mg (2 x 100 mg) PO DAILY 30 days [KBU PO BID] levothyroxine 100 mcg PO DAILY lisinopril 2.5 mg PO DAILY loratadine 10 mg PO DAILY 14 days magnesium oxide 250 mg PO BID prednisone Starting October 04, take 3 tabs daily for 1 month then remain on 2 tabs daily [Renuvo PO BID] sodium bicarbonate 650 mg PO BID [Super Detox PO] warfarin 5 mg See Protocol PO DAILY HPI Comments Details: Dyazide 58-year-old man with history of SLE. She has chronic kidney disease. In 2001, she had a kidney biopsy which showed membranous nephropathy. She was treated with Cytoxan and prednisone and obtain remission. She would relapsed again and was treated with mycophenolate followed by active but she did not tolerate these medications and she refused treatment. She did receive a dose of Rituxan in early August 2022 and subsequently did not want further treatment due to perceived side effects. 12/10/23: Doing well today Waiting for Benlysta 03/25/24 Insurance did not cover Benlysta Now she is on Cellcept 06/17/24 Off Cellcept on prednisone 2.5mg No new issues [facility] Medical History Prediabetes SLE glomerulonephritis syndrome History of pulmonary embolism Vitamin D deficiency Hypertriglyceridemia Hypothyroidism Surgical History Hx of tubal ligation Family History Father Family history unknown Mother Hypertension Diabetes Deep vein thrombosis CVA (cerebral vascular accident) Brother CVA (cerebral vascular accident), Onset Age: 48 Brother CVA (cerebral vascular accident), Onset Age: 38 Social History Household Members: None Housing: House Alcohol intake: former Patient Tobacco Use Status: Former Tobacco user e-Cigarette/Vaping Use: Never Used Second Hand Smoke Exposure: Yes service: No Current occupational status: employed 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 Cognitive needs: No Hearing needs: No Vision needs: No Physical Exam Vital Signs: Last Vital Signs Pulse 83 06/17/24 15:26 BP 118/76 06/17/24 15:26 Pulse Ox 97 06/17/24 15:26 Oxygen Delivery Method Room Air 06/17/24 15:26 BMI result Body Mass Index 26.0 Results Reviewed Nephrology Results: Hgb 11.0 g/dl (12.0-16.0) L 04/02/24 WBC 5.9 X10*3/uL (4.8-10.8) 04/02/24 Plt Count 280 X10*3/uL (160-400) 04/02/24 Sodium 140 mmol/L (135-145) 06/12/24 Potassium 4.3 mmol/L (3.3-5.1) 06/12/24 Chloride 112 mmol/L (96-108) H 06/12/24 Carbon Dioxide 21 mmol/L (22-29) L 06/12/24 BUN 43 mg/dL (9-16) H 06/12/24 Creatinine 2.63 mg/dL (0.5-1.4) H 06/12/24 Calcium 10.0 mg/dL (8.4-10.2) 06/12/24 Urine Protein 300 (3+) mg/dL (Neg-Trace) H 06/12/24 Urine Creatinine 95.29 mg/dL 04/02/24 Protein/Creatinin Ratio 4.06 (<0.2) H 04/02/24 Assessment & Plan Assessment & Plan (1) CKD (chronic kidney disease) stage 4, GFR 15-29 ml/min: Code(s): N18.4 - Chronic kidney disease, stage 4 (severe) Category: Medical Plan: Due to underlying lupus nephropathy. Advanced CKD No signs or symptoms of uremia. No absolute indication to start her on renal replacement therapy yet. 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 Mild anemia in the setting of lupus and CKD. No indication for Epogen yet. We will screen for secondary hyperparathyroidism. Maintain blood pressure less than 130/80. Continue to avoid nephrotoxic agents including NSAIDs. Hypercalcemia - Decreased Calcitriol CA BACK TO NORMAL Watch PTH Decrease Calcium supplementation from 600mg BID to QD Cr is down to 2.63 with eGFR of 19 ml/mt (2) Lupus (systemic lupus erythematosus): Comment: onset 0891-1826 Treated with Cytoxan and prednisone Coumadin throughout Cyclosporin 2006 DC due to epigastric pain CellCept 2008 up titrated to 3 g daily, developed worsening proteinuria Rituximab 2 doses, 2 weeks apart 2010 Believes that she took hydroxychloroquine and discontinued it due to tinnitus ?! Benlysta 02/2012 was helpful especially for skin lesions. Discontinued due to loss of insurance Acthar gel 2016 took it for about a year inconsistently Repeat kidney biopsy 04/2022 showed class 3 and 5 nephritis. Received 1 dose of rituximab 08/2022 with some improvement Benlysta 12/2023. DC 02/2024. Could not afford co-pay CellCept tried again 02/2024. DC'd after 1 dose due to rash Code(s): M32.9 - Systemic lupus erythematosus, unspecified Category: Medical Qualifiers: Systemic lupus erythematosus organ involvement: glomerular disease Systemic lupus erythematosus type: other Qualified Code(s): M32.14 - Glomerular disease in systemic lupus erythematosus (3) SLE glomerulonephritis syndrome: Comment: onset 5193-0488 class 3 and class 5 nephritis, low C3, low C4 Repeat kidney biopsy 04/2022 showed class 3 and 5 nephritis. Received 1 dose of rituximab 08/2022 with some improvement Code(s): M32.14 - Glomerular disease in systemic lupus erythematosus Category: Medical Plan . Orders: Orders Basic Metabolic Panel 3 Months N18.4 - Chronic kidney disease, stage 4 (severe) Parathyroid Hormone Intact 3 Months N18.4 - Chronic kidney disease, stage 4 (severe) Complete Blood Count no Diff 3 Months N18.4 - Chronic kidney disease, stage 4 (severe) Phosphorus 3 Months N18.4 - Chronic kidney disease, stage 4 (severe) Coding Level of Care Code Est Pt Level 4 (50315) Diagnoses CKD (chronic kidney disease) stage 4, GFR 15-29 ml/min N18.4 Other systemic lupus erythematosus with glomerular disease M32.14 Systemic lupus erythematosus organ involvement: glomerular disease Systemic lupus erythematosus type: other SLE glomerulonephritis syndrome M32.14
== END 2024-06-17 15:46 | disposition home or self-care (01) ==
PROVIDERS: PCP Physician Assistant; Visit Provider Internal Medicine Hypertension Specialist
DX: N18.4 Chronic kidney disease, stage 4 (severe) (principal); M32.14 Glomerular disease in systemic lupus erythematosus
CPT/HCPCS: 99214

== ENCOUNTER → 2024-06-17 15:06 | Outpatient (BNVA) | payer OTHER, MEDICAID, SELFPAY | PROVIDERS: PCP Physician Assistant; Visit Provider Internal Medicine Hypertension Specialist ==

== ENCOUNTER 2024-06-25 15:14 | Outpatient (AMB) | payer OTHER, MEDICAID, SELFPAY ==
--- NOTE | 2024-06-25 15:19 | MHC.OFFVISCO ---
Intake Intake Visit Reasons: Anticoagulation Allergies rituximab [From Rituxan] Allergy (Severe, Verified 06/25/24 15:15) Anaphylaxis cephalexin [From Keflex] Allergy (Unknown, Verified 06/25/24 15:15) RED+ITCHY,RASH Cephalosporins [CEPHALOSPORINS] Allergy (Unknown, Verified 06/25/24 15:15) RED+ITCHY Sulfa (Sulfonamide Antibiotics) [SULFA(SULFONAMIDE ANTIBIOTICS)] Allergy (Unknown, Verified 06/25/24 15:15) RED+ITCHY mycophenolate mofetil [From CellCept] Adverse Reaction (Intermediate, Verified 06/25/24 15:15) rash cellcept Allergy (Severe, Uncoded 06/25/24 15:15) Hives retuxin Adverse Reaction (Severe, Uncoded 06/25/24 15:15) Abdominal Pain Medication List - Last Reconciled 06/25/24 by Shana Allen RN [4Life transfer factor PO BID] atorvastatin 20 mg PO BEDTIME 30 days calcitriol 0.25 mcg PO DAILY clobetasol 0.05% 1 appl topical DAILY erythromycin 1 appl ophthalmic (eye) DAILY 15 days fluocinonide 0.05% appl topical gabapentin 200 mg (2 x 100 mg) PO DAILY 30 days [KBU PO BID] levothyroxine 100 mcg PO DAILY lisinopril 2.5 mg PO DAILY loratadine 10 mg PO DAILY 14 days magnesium oxide 250 mg PO BID prednisone Starting October 04, take 3 tabs daily for 1 month then remain on 2 tabs daily [Renuvo PO BID] sodium bicarbonate 650 mg PO BID [Super Detox PO] warfarin 5 mg See Protocol PO DAILY Nursing Note INR: 2.9- in therapeutic range of 2-3 Medications and supplements reviewed No changes in health, diet, medications, or supplements, Denies any signs and symptoms of bleeding or bruising or clotting. Bleeding, bruising, clotting discussed Nutritional guidance given Dose: 5mg x 2 , 2.5mg x 5 F/U INR: 3 weeks Patient verbalizes understanding of instructions given Anti-Coag Initial Assessment Social Hx Patient Tobacco Use Status: Former Tobacco user alcohol intake: former Alcohol intake frequency: does not drink Coding Level of Care Code Est Patient Level 1 Diagnoses Current use of anticoagulant therapy Z79.01 Results AMB INR Fingerstick AMB INR Fingerstick 2.9 Last Edit by Shana Allen RN on 06/25/24 15:21 interface delay Assessment & Plan Assessment & Plan (1) Current use of anticoagulant therapy: Code(s): Z79.01 - prison (current) use of anticoagulants Category: Medical
[2024-06-26 09:30] LABS: Prothrombin Time Whole Bld POC 34.6 sec (11.1-13.5); ~PT, ~INR - Anti Coag Clinic 2.9 (0.9-1.1)
== END 2024-06-25 15:26 | disposition home or self-care (01) ==
LOC: HO.ACS 15:14
PROVIDERS: PCP Physician Assistant; Visit Provider Internal Medicine
DX: Z79.01 Long term (current) use of anticoagulants (principal)

== ENCOUNTER → 2024-06-25 15:14 | Outpatient (BNVA) | payer OTHER, MEDICAID, SELFPAY | PROVIDERS: PCP Physician Assistant; Visit Provider Internal Medicine | DX: I26.99 Other pulmonary embolism without acute cor pulmonale (principal); Z79.01 Long term (current) use of anticoagulants; Z51.81 Encounter for therapeutic drug level monitoring | CPT/HCPCS: 85610; 99211 ==

== ENCOUNTER 2024-07-07 15:19 | Outpatient (AMB) | payer OTHER, MEDICAID, SELFPAY ==
--- NOTE | 2024-07-07 15:25 | MHC.PC.OV ---
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: No Accompanied by: Self / Same As Patient Allergies rituximab [From Rituxan] Allergy (Severe, Verified 07/07/24 15:32) Anaphylaxis cephalexin [From Keflex] Allergy (Unknown, Verified 07/07/24 15:32) RED+ITCHY,RASH Cephalosporins [CEPHALOSPORINS] Allergy (Unknown, Verified 07/07/24 15:32) RED+ITCHY Sulfa (Sulfonamide Antibiotics) [SULFA(SULFONAMIDE ANTIBIOTICS)] Allergy (Unknown, Verified 07/07/24 15:32) RED+ITCHY mycophenolate mofetil [From CellCept] Adverse Reaction (Intermediate, Verified 07/07/24 15:32) rash cellcept Allergy (Severe, Uncoded 07/07/24 15:32) Hives retuxin Adverse Reaction (Severe, Uncoded 07/07/24 15:32) Abdominal Pain Medication List - Last Reconciled 07/07/24 by Franklin Sanchez PA-C [4Life transfer factor PO BID] atorvastatin 20 mg PO BEDTIME 30 days calcitriol 0.25 mcg PO DAILY clobetasol 0.05% 1 appl topical DAILY erythromycin 1 appl ophthalmic (eye) DAILY 15 days fluocinonide 0.05% appl topical gabapentin 200 mg (2 x 100 mg) PO DAILY 30 days [KBU PO BID] levothyroxine 100 mcg PO DAILY lisinopril 2.5 mg PO DAILY loratadine 10 mg PO DAILY 14 days magnesium oxide 250 mg PO BID prednisone Starting October 04, take 3 tabs daily for 1 month then remain on 2 tabs daily [Renuvo PO BID] sodium bicarbonate 650 mg PO BID [Super Detox PO] warfarin 5 mg See Protocol PO DAILY Tobacco use date assessed: 04/08/24 Dental Screening Dental Screen Date: 08/14/23 HPI f/u thyroid, lupus HPI Details Patient is a 58-year-old female here today for a follow-up visit. Patient has a past medical history significant for SLE, hypothyroidism, hypertriglyceridemia, chronic anticoagulation use, former smoker. Concern--> continues to skin tags around her neck that bother her quite often. Have tried to remove them in the past though have grown back. She would like to see filter tank tender . 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 Most recent creatinine improved at 2.6 . Was seen seeing a dietition and would like to see a dietitian again.? Has been able to lose a significant amount weight due to lifestyle changes. Continues on anticoagulation without any overt signs of bleeding. Also followed by a television maintenance man and considering dialysis.? Has gotten 2nd opinion through television maintenance man and [place] though no medication was recommended. Again dialysis was considered.. Has trialed retuxin though had a terrible adverse reaction. ?? Has use magnesium supplementation in the past with good effect. At this point there is no further treatment that has been covered by insurance or patient has been able to tolerate for her glomerular nephritis. She continues to see rheumatology for her SLE .. .. Hypothyroidism:? Patient's thyroid has now normalized on lower dose levothyroxine 100 mcg .? Continues to follow Endocrinology as well . ? Hypertriglyceridemia: Has a history elevated triglycerides. Has been trying to manage her triglycerides with dietary modifications. Has upcoming of appointment with job estimator Laboratory Tests 09/04/23 12/05/23 01/14/24 16:27 16:04 16:12 BUN Creatinine TSH 0.30 L PTH Intact 255.1 H 142.7 H Urine Protein 03/21/24 04/02/24 06/12/24 15:34 16:07 16:52 BUN 42 H Creatinine 3.21 H TSH 3.45 PTH Intact 269.5 H Urine Protein 300 (3+) H 06/12/24 16:55 BUN 43 H Creatinine 2.63 H TSH PTH Intact Urine Protein PFSH Medical History Prediabetes SLE glomerulonephritis syndrome History of pulmonary embolism Vitamin D deficiency Hypertriglyceridemia Hypothyroidism Surgical History Hx of tubal ligation Family History Father Family history unknown Mother Hypertension Diabetes Deep vein thrombosis CVA (cerebral vascular accident) Brother CVA (cerebral vascular accident), Onset Age: 48 Brother CVA (cerebral vascular accident), Onset Age: 38 Social History Household Members: None Housing: House Alcohol intake: former Patient Tobacco Use Status: Former Tobacco user e-Cigarette/Vaping Use: Never Used Second Hand Smoke Exposure: Yes service: No Current occupational status: employed 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 Gino Young, Seble Chahal, Dennis Zendejas and colleagues, with an educational clara from [employer]. Review of Systems Const Denies headache(s) Eyes Denies loss of vision ENT Denies vertigo, Denies dizziness, Denies headache(s) and Denies sore throat Card Denies chest pain, Denies leg edema and Denies lightheadedness Resp Denies cough, Denies hemoptysis and Denies wheezing GI Denies abdominal pain, Denies melena, Denies constipation, Denies diarrhea and Denies vomiting Denies urinary frequency, Denies dysuria and Denies urinary urgency Musc Denies arthralgias, Denies joint swelling, Denies numbness and Denies tingling Neuro Denies Abnormal speech present, Denies behavioral changes, Denies vertigo, Denies dizziness, Denies headache(s), Denies loss of vision, Denies memory loss, Denies numbness and Denies tingling Psych Denies anxiety, Denies behavioral changes, Denies depression, Denies memory loss and Denies panic attacks Davie/Lymph Denies easy bleeding and Denies easy bruising Aller/Immun Denies wheezing Physical exam (Primary Care) Vital Signs: Last Vital Signs Pulse 85 07/07/24 15:28 BP 114/78 07/07/24 15:28 Pulse Ox 97 07/07/24 15:28 Oxygen Delivery Method Room Air 07/07/24 15:28 BMI result Body Mass Index 26.4 Tobacco/Smoking Status: Tobacco use Status Tobacco use date assessed 04/08/24 07/07/24 15:26 Patient Tobacco Use Status Former Tobacco user 07/07/24 15:26 e-Cigarette/Vaping Use Never Used 12/02/24 15:26 Thrive Assessment: Date of Thrive Assessment Date Thrive assessed 08/14/23 07/07/24 15:26 Const General: healthy appearing, no acute distress, alert and awake Nutritional Appearance: well nourished Orientation/consciousness: oriented to person, oriented to place and oriented to time HENMT Ears: TM's normal bilaterally General nose exam: Normal nasal mucous membranes and turbinates present Eyes Conjunctivae: conjunctivae normal Sclerae: sclerae normal Pupils: Equal, round and reactive pupils present Neck Neck: Yes no lymphadenopathy and Yes no JVD Thyroid: Thyroid normal Carotids: no bruits Neck images: 1. MULTIPLE HYPERPIGMENTED SKIN TAGS OVER THE NECK. Resp Effort & Inspection: normal respiratory effort and not tachypneic Auscultation: no crackles, no rales, no rhonchi and no wheezes Cardio Rate: regular rate Rhythm: regular rhythm Heart sounds: no murmurs and normal S1 and S2 GI Palpation (GI): Soft to palpation, nontender, no hepatomegaly and no splenomegaly Auscultation: normal bowel sounds Skin General skin exam: no rashes or lesions noted and dry skin Neuro General: oriented to person, oriented to place and oriented to time Cranial nerves: Yes Equal, round and reactive pupils present Speech: No Abnormal speech present Gait exam (Neuro): Normal gait present Motor exam (neuro): no tremor noted Extrem Right upper extremity: full ROM Left upper extremity: full ROM Right lower extremity: full ROM; no edema Left lower extremity: full ROM; no edema Psych Mental Status: mental status grossly normal Speech and movement: Normal speech and movement present Affect: normal affect Attitude: cooperative Thought process: Normal thought process present Coding Level of Care Code Est Pt Level 4 (88158) Diagnoses CKD (chronic kidney disease) stage 4, GFR 15-29 ml/min N18.4 SLE glomerulonephritis syndrome M32.14 Hypertriglyceridemia E78.1 Skin tag L91.8 Assessment & Plan Assessment & Plan (1) CKD (chronic kidney disease) stage 4, GFR 15-29 ml/min: Code(s): N18.4 - Chronic kidney disease, stage 4 (severe) Category: Medical Plan: As per HPI patient followed by Nephrology for her chronic kidney disease secondary to her lupus. Will continue to abstain from nephrotoxins (2) SLE glomerulonephritis syndrome: Comment: onset 7958-1510 class 3 and class 5 nephritis, low C3, low C4 Repeat kidney biopsy 04/2022 showed class 3 and 5 nephritis. Received 1 dose of rituximab 08/2022 with some improvement Code(s): M32.14 - Glomerular disease in systemic lupus erythematosus Category: Medical Plan: Continues to follow [facility]. She reports her autoimmune lupus has been in remission. (3) Hypertriglyceridemia: Code(s): E78.1 - Pure hyperglyceridemia Category: Medical Plan: Continues to follow dietary modifications to reduce her triglycerides. She is due for repeat fasting lipid panel. Followed by [facility] endocrin[facility]. (4) Skin tag: Code(s): L91.8 - Other hypertrophic disorders of the skin Category: Medical Plan: As per HPI patient would like to see Dermatology for skin tag removal over neck. Orders: Referrals Dermatology Referral L91.8 - Other hypertrophic disorders of the skin
[2024-07-07 15:28] VITALS: BP 114/78; PULSE 85; O2SAT 97; BMI 26.4
== END 2024-07-07 15:51 | disposition home or self-care (01) ==
PROVIDERS: PCP Physician Assistant; Visit Provider Physician Assistant
DX: N18.4 Chronic kidney disease, stage 4 (severe) (principal); M32.14 Glomerular disease in systemic lupus erythematosus; E78.1 Pure hyperglyceridemia; L91.8 Other hypertrophic disorders of the skin

== ENCOUNTER → 2024-07-07 15:19 | Outpatient (BNVA) | payer OTHER, MEDICAID, SELFPAY | PROVIDERS: PCP Physician Assistant; Visit Provider Physician Assistant ==

== ENCOUNTER 2024-07-11 09:03 | Outpatient (REF) | payer OTHER, MEDICAID, SELFPAY ==
[2024-07-11 09:40] LABS: Hemoglobin 11.3 g/dl (12.0-16.0); Mean Corpuscular HGB Conc 32.3 g/dl (31.0-35.0); Mean Corpuscular Volume 92.8 fL (80.0-98.0); Mean Platelet Volume 10.7 fL (9.4-12.3); Platelet Count 264 X10*3/uL (160-400); Red Blood Count 3.77 X10*6/uL (4.20-5.50); Red Cell Distribution Width 12.8 % (11.0-16.0); White Blood Count 6.3 X10*3/uL (4.8-10.8)
[2024-07-11 09:43] LABS: Appearance Urine Clear; Color Urine Yellow; Glucose Urine UA 100 mg/dL (Negative); Leukocyte Esterase Urine Negative (Negative); Nitrite Urine Negative (Negative); PH 5.5 (5.0-9.0); Specific Gravity - Urine 1.015 (1.005-1.025); UMIC TRIGGER UA YES; Urine Blood Small (1+) (Negative); Urine Ketones Negative (Negative); Urine Protein 300 (3+) mg/dL (Neg-Trace)
[2024-07-11 09:58] LABS: Bacteria Urine Trace (None Seen); Hyaline Casts Urine 0-2 /LPF (0-2); RBC Urine 0-2 /HPF (0-2); WBC Urine 0-5 /HPF (0-5)
[2024-07-11 10:17] LABS: Alanine Aminotransferase 24 U/L (0-31); Alkaline Phosphatase 68 U/L (39-117); Anion Gap 11 (12-20); Aspartate Amino Transferase 29 U/L (5-31); Bilirubin Total 0.5 mg/dL (0.0-1.0); Blood Urea Nitrogen 44 mg/dL (9-16); C Reactive Protein 0.46 mg/dL (< or = 0.50); Calcium 10.8 mg/dL (8.4-10.2); Carbon Dioxide 21 mmol/L (22-29); Chloride 116 mmol/L (96-108); Cholesterol 154 mg/dL (<200); Estimated Glomerular Filt Rate 16; Glucose Random 112 mg/dL (60-115); HDL Cholesterol 32 mg/dL (>40); LDL Cholesterol Calculated 81 mg/dL (<100); Potassium 4.1 mmol/L (3.3-5.1); Sodium 144 mmol/L (135-145); Total Protein 7.8 g/dL (6.5-8.0); Triglycerides 209 mg/dL (<150)
[2024-07-11 10:34] LABS: TSH reflex Free T4 3.58 uIU/mL (0.32-4.0); Vitamin D 25-OH Total 35.1 ng/mL (>30)
== END 2024-07-11 09:04 | disposition home or self-care (01) ==
LOC: HO.LAB 09:03
PROVIDERS: Internal Medicine; Absent Provider Internal Medicine Endocrinology, Diabetes & Metabolism; PCP Physician Assistant; Referring Provider Internal Medicine Hypertension Specialist; Visit Provider Student in an Organized Health Care Education/Training Program
DX: E78.1 Pure hyperglyceridemia (principal); M32.14 Glomerular disease in systemic lupus erythematosus; E03.8 Other specified hypothyroidism; E06.3 Autoimmune thyroiditis; E55.9 Vitamin D deficiency, unspecified
CPT/HCPCS: 36415; 80053; 80061; 81001; 82306; 84443; 85027; 86140

== ENCOUNTER → 2024-07-15 13:23 | Outpatient (AMB) | payer OTHER, MEDICAID, SELFPAY ==
--- NOTE | 2024-07-15 13:30 | MHC.OFFVIS ---
Vital Signs 07/15/24 13:32 Height 5 ft Weight 134 lb 11.239 oz BMI 26.3 BP 116/70 Blood Pressure Location Rt brachial Position Sitting Pulse 90 Pulse Source Pulse Oximeter Intake Visit Reasons: Hypothyroidism Intake Note: Patient present today for Hypothyroidism follow up. Log Data Technician Required: No Accompanied by: Self / Same As Patient Allergies rituximab [From Rituxan] Allergy (Severe, Verified 07/15/24 13:32) Anaphylaxis cephalexin [From Keflex] Allergy (Unknown, Verified 07/15/24 13:32) RED+ITCHY,RASH Cephalosporins [CEPHALOSPORINS] Allergy (Unknown, Verified 07/15/24 13:32) RED+ITCHY Sulfa (Sulfonamide Antibiotics) [SULFA(SULFONAMIDE ANTIBIOTICS)] Allergy (Unknown, Verified 07/15/24 13:32) RED+ITCHY mycophenolate mofetil [From CellCept] Adverse Reaction (Intermediate, Verified 07/15/24 13:32) rash cellcept Allergy (Severe, Uncoded 07/15/24 13:32) Hives retuxin Adverse Reaction (Severe, Uncoded 07/15/24 13:32) Abdominal Pain Medication List - Last Reconciled 07/15/24 by Gino Mora MD [4Life transfer factor PO BID] atorvastatin 20 mg PO BEDTIME 30 days calcitriol 0.25 mcg PO DAILY clobetasol 0.05% 1 appl topical DAILY erythromycin 1 appl ophthalmic (eye) DAILY 15 days fluocinonide 0.05% appl topical gabapentin 200 mg (2 x 100 mg) PO DAILY 30 days [KBU PO BID] levothyroxine 100 mcg PO DAILY lisinopril 2.5 mg PO DAILY loratadine 10 mg PO DAILY 14 days magnesium oxide 250 mg PO BID prednisone Starting October 04, take 3 tabs daily for 1 month then remain on 2 tabs daily [Renuvo PO BID] sodium bicarbonate 650 mg PO BID [Super Detox PO] warfarin 5 mg See Protocol PO DAILY HPI Comments Details: 59 YO Female with a complex medical history including SLE with nephritis, history of PE on chronic AC with Coumadin, 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 She was previously followed by Dr. Verma. Today's visit focus is on the hypothyroidism She was started on Atorvastatin and is currently on 20 mg PO daily. LDL remains elevated as do TG levels. 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 She has required high doses of levothyroxine, which was thought by Dr. Verma to be due to nephrotic syndrome. It does appear she had nephrotic range proteinuria back in 2002 and 2005, but this has not been routinely assessed in our system since that time. She was requiring high doses of levothyroxine, and at the time of her initial visit with me she was using levothyroxine 250 mcg PO daily. Her labs reveal hyperthyroidism with suppressed TSH, however she also remains on Prednisone 10 mg PO daily. FT4 was WNL, so I do not suspect it is the prednisone causing lowering of her TSH. She is currently on levothyroxine 100 mcg She had a thyroid US completed 11/10/2021 which revealed no nodules. She reports feeling well and has no complaints today. Labs: Laboratory Tests 12/09/22 12/09/22 07:31 07:31 Triglycerides 349 Cholesterol 247 LDL Cholesterol Direct 135 H LDL Cholesterol, Calc 147 HDL Cholesterol 31 TSH 1.30 Free T4 1.06 [facility] Medical History Prediabetes SLE glomerulonephritis syndrome History of pulmonary embolism Vitamin D deficiency Hypertriglyceridemia Hypothyroidism Surgical History Hx of tubal ligation Family History Father Family history unknown Mother Hypertension Diabetes Deep vein thrombosis CVA (cerebral vascular accident) Brother CVA (cerebral vascular accident), Onset Age: 48 Brother CVA (cerebral vascular accident), Onset Age: 38 Social History Household Members: None Housing: House Alcohol intake: former Patient Tobacco Use Status: Former Tobacco user e-Cigarette/Vaping Use: Never Used Second Hand Smoke Exposure: Yes service: No Current occupational status: employed 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 There are no thyroid nodules palpated Assessment & Plan Assessment & Plan (1) Hypothyroidism: Code(s): E03.9 - Hypothyroidism, unspecified Category: Medical Qualifiers: Hypothyroidism type: due to Ar's thyroiditis Qualified Code(s): E03.8 - Other specified hypothyroidism; E06.3 - Autoimmune thyroiditis Plan: History of hypothyroidism currently levothyroxine 100 mcg. Appears to be clinically and biochemically euthyroid Plan is to continue the current therapy. At this point, patient returned to the care of her primary care provider returned back to endocrinology as needed Medications: Refilled atorvastatin 20 mg PO BEDTIME 30 days 30 tabs 2RF E78.1 - Pure hyperglyceridemia levothyroxine 100 mcg PO DAILY 90 tabs 3RF E03.8 - Other specified hypothyroidism, E06.3 - Autoimmune thyroiditis Coding Level of Care Code Est Pt Level 3 (95678) Diagnoses Hypothyroidism due to Ar's thyroiditis E03.8; E06.3 Hypothyroidism type: due to Ar's thyroiditis
[2024-07-15 13:32] VITALS: BP 116/70; PULSE 90; BMI 26.3
== END ==
PROVIDERS: PCP Physician Assistant; Visit Provider Internal Medicine Endocrinology, Diabetes & Metabolism
DX: E03.8 Other specified hypothyroidism (principal); E06.3 Autoimmune thyroiditis
CPT/HCPCS: 99213

== ENCOUNTER 2024-07-16 15:05 | Outpatient (AMB) | payer OTHER, MEDICAID, SELFPAY ==
--- NOTE | 2024-07-16 15:12 | MHC.OFFVISCO ---
Intake Intake Visit Reasons: Anticoagulation Allergies rituximab [From Rituxan] Allergy (Severe, Verified 07/16/24 15:06) Anaphylaxis cephalexin [From Keflex] Allergy (Unknown, Verified 07/16/24 15:06) RED+ITCHY,RASH Cephalosporins [CEPHALOSPORINS] Allergy (Unknown, Verified 07/16/24 15:06) RED+ITCHY Sulfa (Sulfonamide Antibiotics) [SULFA(SULFONAMIDE ANTIBIOTICS)] Allergy (Unknown, Verified 07/16/24 15:06) RED+ITCHY mycophenolate mofetil [From CellCept] Adverse Reaction (Intermediate, Verified 07/16/24 15:06) rash cellcept Allergy (Severe, Uncoded 07/16/24 15:06) Hives retuxin Adverse Reaction (Severe, Uncoded 07/16/24 15:06) Abdominal Pain Medication List - Last Reconciled 07/16/24 by Shana Allen RN [4Life transfer factor PO BID] atorvastatin 20 mg PO BEDTIME 30 days calcitriol 0.25 mcg PO DAILY clobetasol 0.05% 1 appl topical DAILY erythromycin 1 appl ophthalmic (eye) DAILY 15 days fluocinonide 0.05% appl topical gabapentin 200 mg (2 x 100 mg) PO DAILY 30 days [KBU PO BID] levothyroxine 100 mcg PO DAILY lisinopril 2.5 mg PO DAILY loratadine 10 mg PO DAILY 14 days magnesium oxide 250 mg PO BID prednisone Starting October 04, take 3 tabs daily for 1 month then remain on 2 tabs daily [Renuvo PO BID] sodium bicarbonate 650 mg PO BID [Super Detox PO] warfarin 5 mg See Protocol PO DAILY Nursing Note INR: 2.9- in therapeutic range of 2-3 Medications and supplements reviewed No changes in health, diet, medications, or supplements, Denies any signs and symptoms of bleeding or bruising or clotting. Bleeding, bruising, clotting discussed Nutritional guidance given Dose: 5mg x 2, 2.5mg x 5 F/U INR: 3 weeks Patient verbalizes understanding of instructions given Anti-Coag Initial Assessment Social Hx Patient Tobacco Use Status: Former Tobacco user alcohol intake: former Alcohol intake frequency: does not drink Coding Level of Care Code Est Patient Level 1 Diagnoses Current use of anticoagulant therapy Z79.01 Results AMB INR Fingerstick AMB INR Fingerstick 2.9 Last Edit by Shana Allen RN on 07/16/24 15:14 interface delay Assessment & Plan Assessment & Plan (1) Current use of anticoagulant therapy: Code(s): Z79.01 - residential (current) use of anticoagulants Category: Medical
[2024-07-16 15:13] LABS: Prothrombin Time Whole Bld POC 34.6 sec (11.1-13.5); ~PT, ~INR - Anti Coag Clinic 2.9 (0.9-1.1)
== END 2024-07-16 15:18 | disposition home or self-care (01) ==
LOC: HO.ACS 15:05
PROVIDERS: PCP Physician Assistant; Visit Provider Internal Medicine
DX: Z79.01 Long term (current) use of anticoagulants (principal)

== ENCOUNTER → 2024-07-16 15:05 | Outpatient (BNVA) | payer OTHER, MEDICAID, SELFPAY | PROVIDERS: PCP Physician Assistant; Visit Provider Internal Medicine | DX: I26.99 Other pulmonary embolism without acute cor pulmonale (principal); Z79.01 Long term (current) use of anticoagulants; Z51.81 Encounter for therapeutic drug level monitoring | CPT/HCPCS: 85610; 99211 ==

== ENCOUNTER 2024-08-27 15:11 | Outpatient (AMB) | payer OTHER, MEDICAID, SELFPAY ==
[2024-08-27 15:18] LABS: Prothrombin Time Whole Bld POC 34.3 sec (11.1-13.5); ~PT, ~INR - Anti Coag Clinic 2.9 (0.9-1.1)
--- NOTE | 2024-08-27 15:33 | MHC.OFFVISCO ---
Intake Intake Visit Reasons: Anticoagulation Allergies rituximab [From Rituxan] Allergy (Severe, Verified 08/27/24 15:12) Anaphylaxis cephalexin [From Keflex] Allergy (Unknown, Verified 08/27/24 15:12) RED+ITCHY,RASH Cephalosporins [CEPHALOSPORINS] Allergy (Unknown, Verified 08/27/24 15:12) RED+ITCHY Sulfa (Sulfonamide Antibiotics) [SULFA(SULFONAMIDE ANTIBIOTICS)] Allergy (Unknown, Verified 08/27/24 15:12) RED+ITCHY mycophenolate mofetil [From CellCept] Adverse Reaction (Intermediate, Verified 08/27/24 15:12) rash cellcept Allergy (Severe, Uncoded 07/16/24 15:06) Hives retuxin Adverse Reaction (Severe, Uncoded 07/16/24 15:06) Abdominal Pain Medication List - Last Reconciled 08/27/24 by Stephanie Tran RN [4Life transfer factor PO BID] atorvastatin 20 mg PO BEDTIME 30 days calcitriol 0.25 mcg PO DAILY clobetasol 0.05% 1 appl topical DAILY erythromycin 1 appl ophthalmic (eye) DAILY 15 days fluocinonide 0.05% appl topical gabapentin 200 mg (2 x 100 mg) PO DAILY 30 days [KBU PO BID] levothyroxine 100 mcg PO DAILY lisinopril 2.5 mg PO DAILY loratadine 10 mg PO DAILY 14 days magnesium oxide 250 mg PO BID prednisone Starting October 04, take 3 tabs daily for 1 month then remain on 2 tabs daily [Renuvo PO BID] sodium bicarbonate 650 mg PO BID [Super Detox PO] warfarin 5 mg See Protocol PO DAILY Nursing Note NO CP,SOB,DIEWT/MED CHANGES,FALLS ORM SX OF BLEEDING. CONTINUE PRESENT DOSING AND FOLLOW-UP IN 4 WEEKS. GOOD UNDERSTANDING OF DOSING INSTR. Anti-Coag Initial Assessment Social Hx Patient Tobacco Use Status: Former Tobacco user alcohol intake: former Alcohol intake frequency: does not drink Coding Level of Care Code Est Patient Level 1 Diagnoses Current use of anticoagulant therapy Z79.01 Assessment & Plan Assessment & Plan (1) Current use of anticoagulant therapy: Code(s): Z79.01 - halfway (current) use of anticoagulants Category: Medical
--- OUTSIDE RECORDS SUMMARY | 2024-08-27 17:35 | XMS_ITS | Encounter Summary ---
Author Organization [facility] Address [address] [place] [address] Phone Care Team Providers Care Motion Picture Set Grip Name Role Phone Unavailable Primary Care Provider Unavailabl e Encounter Details Date Type Department Care Team (Late st Contact Info) Description 08/10/2022 Telephone [facility] [address] [place] [address] Roe Morrissey MD Social History Tobacco Use Types Packs/Day Years Used Date Smoking Tobacco: Every Day Cigarettes Smokeless Tobacco: Never Alcohol Use Standard Drinks/Week Comments Yes 0 (1 standard drink = 0.6 oz pure alcohol) Alcoholic Drinks/day: Occasional social drink Comments Unknown Sex and Gender Information Value Date Recorded Sex Assigned at Not on file Legal Sex Female 5:11 PM EST Gender Identity Not on file Sexual Orientation Not on file documented as of this encounter Miscellaneous Notes * Telephone Encounter - Iris Gee - 08/10/2022 10:19 AM EST [facility] insurance verification called, pt will need a PA for her truxima infusion that is scheduled for tomorrow. This will need to go through [facility]. documented in this encounter Plan of Treatment Not on file documented as of this encounter Procedures Procedure Name Priority Date/Time Associated Diagnosis Comments CREATININE, BLOOD Routine 11/06/2022 4:2 0 PM EDT BUN Routine 11/06/2022 4:20 PM EDT CALCIUM Routine 11/06/2022 4:20 PM EDT ELECTROLYTE PANEL Routine 11/06/2022 4:2 0 PM EDT documented in this encounter Results * Calcium (11/06/2022 4:20 PM EDT) Calcium 9.1 8.4 - 10.2 mg/dL [facility] 11/06/2022 4:20 PM EDT 11/06/2022 4:20 PM EDT Roe Morrissey MD LAB BLOOD ORDERABLES Final Res ult Performing Organization Address [facility] Co de Phone Number [place] * (ABNORMAL) Creatinine (11/06/2022 4:20 PM EDT) Creatinine Serum 2.59(H) 0.5 - 1.4 mg/dL [facility] Comment: NOTE: ??For -[place] individuals, multiply the result ? by 1.210. Chronic Kidney Disease: ??Estimated GFR < 60 mL/min/1.73m2 Severe Kidney Disease: ??Estimated GFR < 15 mL/min/1.73m2 11/06/2022 4:20 PM EDT 11/06/2022 4:20 PM EDT Roe Morrissey MD LAB BLOOD ORDERABLES Final Res ult Performing Organization Address [facility] Co de Phone Number [place] * (ABNORMAL) BUN (11/06/2022 4:20 PM EDT) BUN 44(H) 9 - 16 mg/dL [place] 11/06/2022 4:20 PM EDT 11/06/2022 4:20 PM EDT Roe Morrissey MD LAB BLOOD ORDERABLES Final Res ult Performing Organization Address [facility] Co de Phone Number [place] * (ABNORMAL) Electrolyte panel (11/06/2022 4:20 PM EDT) Sodium 139 135 - 145 mmol/L [place] Potassium 4.2 3.3 - 5.1 mmol/L [place] Chloride 115(H) 96 - 108 mmol/L [place] Bicarbonate (CO2) 19(L) 22 - 29 mmol/L [place] Anion Gap 9(L) 12 - 20 [place] 11/06/2022 4:20 PM EDT 11/06/2022 4:20 PM EDT us Roe Morrissey MD LAB BLOOD ORDERABLES Final Res ult [place] documented in this encounter Visit Diagnoses Not on filedocumented in this encounter
--- OUTSIDE RECORDS SUMMARY | 2024-08-27 17:35 | XMS_ITS | Referral Summary ---
Author Organization [facility] Address [address] [place] [address] Care Team Providers Care Store Director Name Role Phone Franklin Sanchez Primary Care Provider [phone] Allergies Active Allergy Reactions Criticality Noted Date Comments Cephalexin Rash Medium 11/04/2020 Medications calcium carbonate-vitam in D3 500 mg-200 units tablet Take 2 tablets by mouth once a day. Active cholecalciferol (VITAMIN D3) 2,000 unit capsule Take 2 capsules by mouth once a day. 06/19/2022 Active gabapentin (NEURONTIN) 100 mg capsule Take 2 capsules by mouth once a day. 05/27/2023 Active levothyroxine (SYNTHROID, LEVOTHROID) 100 mcg tablet Take 100 mcg by mouth daily. 05/27/2023 Active predniSONE (DELTASONE) 10 mg tablet Take 10 mg by mouth once a day. Active warfarin (COUMADIN) 5 mg tablet Take 5 mg by mouth. Daily as directed Active lisinopriL (PRINIVIL,ZESTR IL) 2.5 mg tablet Take 1 tablet (2.5 mg total) by mouth once a day. 90 tablet 3 08/07/2023 Active Active Problems No known active problems Social History Tobacco Use Types Packs/Day Years Used Date Smoking Tobacco: Never Smokeless Tobacco: Never Alcohol Use Standard Drinks/Week Comments Not Currently 0 (1 standard drink = 0.6 oz pur e alcohol) Comments Unknown Sex and Gender Information Value Date Recorded Sex Assigned at Not on file Legal Sex Female 1:48 PM EDT Gender Identity Not on file Sexual Orientation Not on file Last Filed Vital Signs Vital Sign Reading Time Taken Comments Blood Pressure 120/68 08/07/2023 8:16 AM EST Pulse 83 08/07/2023 8:16 AM EST Temperature - - Respiratory Rate - - Oxygen Saturation 92% 08/07/2023 8:16 AM EST Inhaled Oxygen Concentration - - Weight 54.4 kg (120 lb) 08/07/2023 8:16 AM EST Height 149.9 cm (4' 11 ) 08/07/2023 8:16 AM EST Body Mass Index 24.24 08/07/2023 8:16 AM EST Plan of Treatment Not on file Procedures * Due to [place] [employer] law, this organization might not be sharing negative HIV tests. Procedure Name Priority Date/Time Associated Diagnosis Comments MICROALBUMIN, RANDOM URINE WITH CREATININE Routine 08/07/2023 9:01 AM EST Chronic kidney disease, stage 4 (severe) (HCC) CBC Routine 06/05/2023 11:53 AM EDT Chronic kidney disease, stage 4 (severe) (HCC) Membranous lupus glomerulonephritis (CMS/HCC) (HCC) VITAMIN D, 25-HYDROXY, TOTAL, IMMUNOASSAY Routine 06/05/2023 11:53 AM EDT Chronic kidney disease, stage 4 (severe) (HCC) Membranous lupus glomerulonephritis (CMS/HCC) (HCC) PTH, INTACT (WITHOUT CALCIUM) Routine 06/05/2023 11:53 AM EDT Chronic kidney disease, stage 4 (severe) (HCC) Membranous lupus glomerulonephritis (CMS/HCC) (HCC) RENAL FUNCTION PANEL Routine 06/05/2023 11:53 AM EDT Chronic kidney disease, stage 4 (severe) (HCC) Membranous lupus glomerulonephritis (CMS/HCC) (HCC) from Last 3 Months or Most Recently Relevant to Health Maintenance Results * Due to [place] [employer] law, this organization might not be sharing negative HIV tests. * (ABNORMAL) Microalbumin, Random Urine with Creatinine (08/07/2023 9:01 AM EST) Creatinine, Random Urine 92 20 - 275 mg/dL 08/08/2023 6:45 PM EST [employer] [facility] Microalbumin 150.8 mg/dL 08/08/2023 6:45 PM EST [facility] Comment: Verified by repeat analysis. Reference Range Not established Microalbumin/Crea tinine Ratio, Random Urine 1,639(H) <30 mcg/mg creat 08/08/2023 6:45 PM EST [facility] Comment: The ADA defines abnormalities in albumin excretion as follows: Albuminuria Category ?Result (mcg/mg creatinine) Normal to Mildly increased ?? <30 Moderately increased ? 30-299 Severely increased ? > OR = 300 The ADA recommends that at least two of three specimens collected within a 3-6 month period be abnormal before considering a patient to be within a diagnostic category. Urine Voided urine specimen / Unknown 08/07/2023 9:01 AM EST 08/07/2023 11:48 PM EST us Anupama Bynum DO LAB URINE ORDERABLES Final Resul t [facility] [address] [facility] 3rd Floor, [place] [address], [employer] [facility] [address] [place] [address] * (ABNORMAL) Vitamin D, 25-Hydroxy, Total, Immunoassay (06/05/2023 11:53 AM EDT) Calcidiol+ercalc idiol 22(L) 30 - 100 ng/mL 06/05/2023 9:28 PM EDT [facility] Comment: Vitamin D Status ? 25-OH Vitamin D: Deficiency: ?<20 ng/mL Insufficiency: ? 20 - 29 ng/mL Optimal: ? > or = 30 ng/mL For 25-OH Vitamin D testing on patients on D2-supplementation and patients for whom quantitation of D2 and D3 fractions is required, the QuestAssureD() 25-OH VIT D, (D2,D3), LC/MS/MS is recommended: order code [id number] (patients >2yrs). See Note 1 Note 1 For additional information, please refer to http://education.Kewen/faq/DTD788 (This link is being provided for informational/ educational purposes only.) Blood Structure of peripheral vein / Unknown 06/05/2023 11:53 AM EDT 06/05/2023 7:56 PM EDT Narrative [facility] - 06/09/2023 5:04 AM EDT FASTING:NO us Anupama Bynum DO LAB BLOOD ORDERABLES Final Resul t [facility] [address] [facility] 3rd Floor, [place] [address], [employer] [facility] [address] [place] [address] * (ABNORMAL) CBC (06/05/2023 11:53 AM EDT) White Blood Cell Count 5.9 3.8 - 10.8 Thousand/ uL 06/05/2023 10:37 PM EDT [employer] [facility] Red Blood Cell Count 3.82 3.80 - 5.10 Million/u L 06/05/2023 10:37 PM EDT [employer] [facility] Hemoglobin 11.4(L) 11.7 - 15.5 g/dL 06/05/2023 10:37 PM EDT [employer] [facility] Hematocrit 34.4(L) 35.0 - 45.0 % 06/05/2023 10:37 PM EDT [employer] [facility] MCV 90.1 80.0 - 100.0 fL 06/05/2023 10:37 PM EDT [employer] [facility] MCH 29.8 27.0 - 33.0 pg 06/05/2023 10:37 PM EDT [employer] [facility] MCHC 33.1 32.0 - 36.0 g/dL 06/05/2023 10:37 PM EDT [employer] [facility] RDW 12.6 11.0 - 15.0 % 06/05/2023 10:37 PM EDT [employer] [facility] Platelet Count 310 140 - 400 Thousand/ uL 06/05/2023 10:37 PM EDT [facility] MPV 11.4 7.5 - 12.5 fL 06/05/2023 10:37 PM EDT [facility] Blood Structure of peripheral vein / Unknown 06/05/2023 11:53 AM EDT 06/05/2023 7:48 PM EDT Narrative [facility] - 06/09/2023 5:04 AM EDT FASTING:NO Anupamanahun Bynum DO LAB BLOOD ORDERABLES Final Resul t [facility] [address] [facility] [address], [place] [address], [employer] [facility] [address] [place] [address] * (ABNORMAL) PTH, Intact (without Calcium) (06/05/2023 11:53 AM EDT) Parathyroid Hormone, Intact 205(H) 16 - 77 pg/mL 06/06/2023 1:16 AM EDT [facility] Comment: Interpretive Guide ?Intact PTH ? Calcium ? ------- Normal Parathyroid ?Normal ? Normal Hypoparathyroidism ?Low or Low Normal ?Low Hyperparathyroidism ?? Primary ?Normal or High ? High ?? Secondary ?High ? Normal or Low ?? Tertiary ? High ? High Non-Parathyroid ?? Hypercalcemia ?Low or Low Normal ?High Blood Structure of peripheral vein / Unknown 06/05/2023 11:53 AM EDT 06/05/2023 11:02 PM EDT Narrative [facility] - 06/09/2023 5:04 AM EDT FASTING:NO us Anupamanahun Bynum DO LAB BLOOD ORDERABLES Final Resul t [facility] [address] [facility] [address], [place] [address], [employer] [facility] [address] [place] [address] * (ABNORMAL) Renal Function Panel (06/05/2023 11:53 AM EDT) [facility] Glucose 89 65 - 139 mg/dL 06/05/2023 10:49 PM EDT [employer] [facility] Comment: ? Non-fasting reference interval BUN 39(H) 7 - 25 mg/dL 06/05/2023 10:49 PM EDT [employer] [facility] Creatinine 2.61(H) 0.50 - 1.03 mg/dL 06/05/2023 10:49 PM EDT [employer] [facility] eGFR 21(L) > OR = 60 mL/min/1. 73m2 06/05/2023 10:49 PM EDT [employer] [facility] Bun/Creatinine Ratio 15 6 - 22 (calc) 06/05/2023 10:49 PM EDT [employer] [facility] Sodium 137 135 - 146 mmol/L 06/05/2023 10:49 PM EDT [employer] [facility] Potassium 4.6 3.5 - 5.3 mmol/L 06/05/2023 10:49 PM EDT [employer] [facility] Chloride 111(H) 98 - 110 mmol/L 06/05/2023 10:49 PM EDT [employer] [facility] Carbon Dioxide 18(L) 20 - 32 mmol/L 06/05/2023 10:49 PM EDT [employer] [facility] Calcium 9.8 8.6 - 10.4 mg/dL 06/05/2023 10:49 PM [employer] [facility] Phosphate 3.5 2.5 - 4.5 mg/dL 06/05/2023 10:49 PM EDT [employer] [facility] Albumin 4.0 3.6 - 5.1 g/dL 06/05/2023 10:49 PM EDT [facility] Blood Structure of peripheral vein / Unknown 06/05/2023 11:53 AM EDT 06/05/2023 7:56 PM EDT Narrative [facility] - 06/09/2023 5:04 AM EDT FASTING:NO us Anupama Bynum DO LAB BLOOD ORDERABLES Final Resul t [facility] [address] [facility] [address], [place] [address], [place] [phone] [employer] [facility] [address] [place] [address] from Last 3 Months or Most Recently Relevant to Health Maintenance Insurance * Guarantor: Aneta Gan Account Type Relation to Patient Date of Phone Billing Address Personal/Family Self 1965 [phone] (Work) [address] [place] [phone] [employer] [facility] Member Subscriber Plan / Payer (Ef fective 2018-Present) Name:Aneta Gan Relation to Subscriber:Self Name:Aneta Gan Payer ID:[id number] Type:HMO Address: [facility], [address] Care Teams Store Director Relationship Specialty Start Date End Date Franklin Sanchez PA [address] [place] [id number] PCP - General 06/05/23
--- OUTSIDE RECORDS SUMMARY | 2024-08-27 17:35 | XMS_ITS | Clinical Summary ---
Author Organization [facility] Address [address] [place] [address] Care Team Providers Care Director Gift Name Role Phone Franklin Sanchez Primary Care Provider [phone] Allergies Active Allergy Reactions Criticality Noted Date [...] Active Active Problems No known active problems Family History Medical History Relation Name Comments Diabetes Father Hypertension Mother Relation Name Status Comments Father Mother Social History Tobacco Use Types Packs/Day Years [...] 08/07/2023 8:16 AM EST Plan of Treatment Health Maintenance Due Date Last Done Comments CKD: Referral to Nutrition 1965 Cologuard 1965 Colon Cancer Screening 1965 Colonoscopy 1965 FOBT / Fit Test 1965 HIV Screening 1965 Hepatitis C Screening 1965 Sigmoidoscopy 1965 Hepatitis B Vaccines (1 of 3 - 19+ 3-dose series) 1984 Mammogram 2005 Zoster Vaccines (1 of 2) 2015 DTaP,Tdap,and Td Vaccines (2 - Td or Tdap) 08/25/2021 08/25/2011, 03/24/2008 Basic Metabolic Panel 09/05/2023 06/05/2023, 023 COVID-19 Vaccine ( season) 2024 10/28/2021, 10/14/2020, 09/16/2020 Influenza Vaccine (#1) 2024 , 06/11/2019, 05/31/2018, Additional history exists 25 Hydroxy / Vitamin D 06/05/2024 06/05/2023 Hemoglobin 06/05/2024 06/05/2023 PTH 06/05/2024 06/05/2023 Phosphorus 06/05/2024 06/05/2023 Alcohol/Substance Use Screening 08/06/2024 Depression Screening and Follow-Up 08/06/2024 Social Drivers of Health Annual Screening 08/06/2024 Urine Microalbumin 08/07/2024 08/07/2023, 1 , 06/05/2023 RSV Vaccine (60+ years old and patients) (1 - 1-dose 75+ series) 2040 Pneumococcal Vaccine: Pediatric (0-5 Years) and At-Risk Patients (6-64 Years) Aged Out 11/08/2018, 12/18/2007 No longer eligibl e based on patient's age to complete this topic CKD: Referral to Nephrology Completed 08/07/2023 Procedures * Due to [place] [employer] law, this organization might not be sharing [...] to Health Maintenance Results * Due to [place] [facility] law, this organization might not be sharing negative HIV tests. * (ABNORMAL) Microalbumin, Random Urine with Creatinine (08/07/2023 9:01 AM EST) Creatinine, Random Urine 92 20 - 275 mg/dL 08/08/2023 6:45 PM EST [employer] Microalbumin 150.8 mg/dL 08/08/2023 6:45 PM EST [employer] [facility] Comment: Verified by repeat analysis. Reference Range Not established Microalbumin/Crea tinine Ratio, Random Urine 1,639(H) <30 mcg/mg creat 08/08/2023 6:45 PM EST [facility] Comment: The ADA defines abnormalities in albumin [...] ORDERABLES Final Resul t [facility] [address] [facility] 3rd Floor, [place] [address], [employer] [address] [place] [address] * (ABNORMAL) Vitamin D, 25-Hydroxy, Total, Immunoassay (06/05/2023 11:53 AM EDT) Calcidiol+ercalc idiol 22(L) 30 - 100 ng/mL 06/05/2023 9:28 PM EDT [facility] Comment: Vitamin D Status ? 25-OH Vitamin D: Deficiency: ?<20 ng/mL Insufficiency: ? 20 - 29 ng/mL Optimal: ? > or = 30 ng/mL For 25-OH Vitamin D testing on patients on D2-supplementation and patients for whom quantitation of D2 and D3 fractions is required, the QuestAssureD() 25-OH VIT D, (D2,D3), LC/MS/MS is recommended: order code [id number] (patients >2yrs). See Note 1 Note 1 For additional information, please refer to http://education.KakKstati/faq/JUI018 (This link is being provided for informational/ educational purposes only.) Blood Structure of peripheral vein / Unknown 06/05/2023 11:53 AM EDT 06/05/2023 7:56 PM EDT Narrative [facility] - 06/09/2023 5:04 AM EDT FASTING:NO Anupama Bynum DO LAB BLOOD ORDERABLES Final Resul t [facility] [address] [facility] 3rd Floor, [place] [address], [employer] [facility] [address] [place] [address] * (ABNORMAL) CBC (06/05/2023 11:53 AM EDT) White Blood Cell Count 5.9 3.8 - 10.8 Thousand/ uL 06/05/2023 10:37 PM EDT [employer] Red Blood Cell Count 3.82 3.80 - 5.10 Million/u L 06/05/2023 10:37 PM EDT [employer] Hemoglobin 11.4(L) 11.7 - 15.5 g/dL 06/05/2023 10:37 PM EDT [employer] Hematocrit 34.4(L) 35.0 - 45.0 % 06/05/2023 10:37 PM EDT [employer] [facility] MCV 90.1 80.0 - 100.0 fL 06/05/2023 10:37 PM EDT [employer] MCH 29.8 27.0 - 33.0 pg 06/05/2023 10:37 PM EDT [employer] [facility] MCHC 33.1 32.0 - 36.0 g/dL 06/05/2023 10:37 PM EDT [employer] [facility] RDW 12.6 11.0 - 15.0 % 06/05/2023 10:37 PM EDT [employer] Platelet Count 310 140 - 400 Thousand/ uL 06/05/2023 10:37 PM EDT [employer] MPV 11.4 7.5 - 12.5 fL 06/05/2023 10:37 PM EDT [facility] Blood Structure of peripheral vein / Unknown 06/05/2023 11:53 AM EDT 06/05/2023 7:48 PM EDT [facility] - 06/09/2023 5:04 AM EDT FASTING:NO us Anupama Bynum DO LAB BLOOD ORDERABLES Final Resul t [facility] [address] [facility] 3rd Floor, [place] [address], [facility] [address] [place] [address] * (ABNORMAL) PTH, Intact (without Calcium) (06/05/2023 11:53 AM EDT) Parathyroid Hormone, Intact 205(H) 16 - 77 pg/mL 06/06/2023 1:16 AM EDT [facility] Comment: Interpretive Guide ?Intact PTH ? Calcium [...] AM EDT 06/05/2023 11:02 PM EDT Narrative [facility] - 06/09/2023 5:04 AM EDT FASTING:NO us Anupama Bynum DO LAB BLOOD ORDERABLES Final Resul t [facility] [address] [facility] [address]rd Floor, [place] [address], [employer] [facility] [address] [place] [address] * (ABNORMAL) Renal Function Panel (06/05/2023 11:53 AM EDT) Glucose 89 65 - 139 mg/dL 06/05/2023 10:49 PM EDT [employer] [facility] Comment: ? Non-fasting reference interval BUN 39(H) 7 - 25 mg/dL 06/05/2023 10:49 PM EDT [facility] Creatinine 2.61(H) 0.50 - 1.03 mg/dL 06/05/2023 10:49 PM EDT [facility] eGFR 21(L) > OR = 60 mL/min/1. 73m2 06/05/2023 10:49 PM [employer] [facility] Bun/Creatinine Ratio 15 6 - 22 (calc) 06/05/2023 10:49 PM EDT [facility] Sodium 137 135 - 146 mmol/L 06/05/2023 10:49 PM EDT [facility] Potassium 4.6 3.5 - 5.3 mmol/L 06/05/2023 10:49 PM [employer] [facility] Chloride 111(H) 98 - 110 mmol/L 06/05/2023 10:49 PM [employer] [facility] Carbon Dioxide 18(L) 20 - 32 mmol/L 06/05/2023 10:49 PM [employer] Calcium 9.8 8.6 - 10.4 mg/dL 06/05/2023 10:49 PM EDT [employer] Phosphate 3.5 2.5 - 4.5 mg/dL 06/05/2023 10:49 PM [employer] [facility] Albumin 4.0 3.6 - 5.1 g/dL 06/05/2023 10:49 PM [facility] Blood Structure of peripheral vein / Unknown 06/05/2023 11:53 AM EDT 06/05/2023 7:56 PM EDT Narrative [facility] - 06/09/2023 5:04 AM EDT FASTING:NO us Anupamanahun Bynum DO LAB BLOOD ORDERABLES Final Resul t [facility] [address] [facility] 3rd Floor, [place] [address], [employer] [address] [place] [address] from Last 3 Months or Most Recently Relevant to Health Maintenance Insurance * Guarantor: Aneta Gan Account Type Relation to Patient Date of Phone Billing Address Personal/Family Self 1965 [phone] (Work) [address] [place] [id number] [facility] Care Teams Director Gift Relationship Specialty Start Date End Date Franklin Sanchez PA [address] [place] [id number] PCP - General 06/05/23
--- OUTSIDE RECORDS SUMMARY | 2024-08-27 17:35 | XMS_ITS | Clinical Summary ---
Author Organization [facility] Address [address] [place] [address] Phone Care Team Providers Care Maple Products Maker Name Role Phone Unavailable Primary Care Provider Unavailabl e Allergies Active Allergy Reactions Criticality Noted Date Comments Cephalexin Other (see comments) 11/04/2020 Penicillins Other (see comments) 11/04/2020 Medications Calcium Carbonate-Vitam in D (calcium-vitami n D) 500-200 MG-UNIT tablet Take 1 tablet by mouth 1 (one) time each day Active dexlansoprazole (Dexilant) [address] capsule Take 1 capsule by mouth 1 (one) time each day 03/02/2016 Active ergocalciferol (VITAMIN D-2) 1.25 MG (85813 UT) capsule Take 1 capsule by mouth 2 (two) times a week Active ferrous sulfate 325 (65 Fe) MG tablet Take 1 tablet by mouth 1 (one) time each day Active warfarin (COUMADIN) 5 MG tablet Take 1 tablet by mouth 1 (one) time each day Active omeprazole (PriLOSEC) [address] capsule TAKE 1 CAPSULE BY MOUTH EVERY DAY DIRECTED 90 capsule 2 12/09/2020 Active metroNIDAZOLE (METROCREAM) 0.75 % cream 12/09/2020 Active fluticasone (FLONASE) 50 MCG/ACT nasal spray 06/08/2021 Active loratadine (CLARITIN) 10 MG tablet 06/08/2021 Active levothyroxine (SYNTHROID, LEVOTHROID) 150 MCG tablet 10/17/2021 Active gabapentin (NEURONTIN) 100 MG capsule Take 2 capsules by mouth 1 (one) time each day 04/17/2022 Active predniSONE (DELTASONE) 10 MG tablet TAKE 1 TABLET BY MOUTH 1 TIME EACH DAY. 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 Systemic lupus erythematosus 11/04/2020 Family History Medical History Relation Comments Diabetes Mother Hypertension Mother Diabetes Sibling 1 Dementia Sibling 2 Relation Status Comments Father Unknown Mother Unknown Sibling 1 Sibling 2 Social History Tobacco Use Types Packs/Day Years Used Date Smoking Tobacco: Every Day Cigarettes Smokeless Tobacco: Never Tobacco Cessation:Ready to Q uit: Not Asked; Counseling Given: Not Answered Alcohol Use Standard Drinks/Week Comments Yes 0 (1 standard drink = 0.6 oz pure alcohol) Alcoholic Drinks/day: Occasional social drink Comments Unknown Sex and Gender Information Value Date Recorded Sex Assigned at Not on file Legal Sex Female 5:11 PM EST Gender Identity Not on file Sexual Orientation Not on file Last Filed Vital Signs Vital Sign Reading Time Taken Comments Blood Pressure 104/60 02/01/2023 4:15 PM EDT Pulse 58 02/01/2023 4:15 PM EDT Temperature - - Respiratory Rate - - Oxygen Saturation 98% 02/01/2023 4:15 PM EDT Inhaled Oxygen Concentration - - Weight 54.3 kg (119 lb 9.6 oz) 02/01/2023 4:15 P M EDT Height 154.9 cm (5' 1 ) 02/01/2023 4:15 PM EDT Body Mass Index 22.6 02/01/2023 4:15 PM EDT Plan of Treatment Health Maintenance Due Date Last Done Comments Breast Cancer Screening 1965 Pneumococcal Vaccine: Pediat rics (0 to 5 Years) and At-Risk Patients (6 to 64 Years) (1 of 2 - PCV) 1971 Hepatitis B Vaccine (1 of 3 - 19+ 3-dose series) 07/13 Colorectal Cancer Screening: Annual FOBT 2014 Colorectal Cancer Screening: Colonoscopy 2014 Colorectal Cancer Screening: Sigmoidoscopy 2014 Influenza Vaccine (#1) [address] [place] [address] [address] [place]ICA[place] [facility] [place]
--- OUTSIDE RECORDS SUMMARY | 2024-08-27 17:35 | XMS_ITS | Clinical Summary ---
Author Organization [facility] Address [address] [place] [address] Care Team Providers Care Board Of Directors Name Role Phone Franklin Sanchez Primary Care Provider + Active Problems Problem Noted Date Diagnosed Date Vitamin D deficiency 07/11/2021 Social History Tobacco Use Types Packs/Day Years Used Date Smoking Tobacco: Never Assessed Sex and Gender Information Value Date Recorded Sex Assigned at Not on file Gender Identity Not on file Sexual Orientation Not on file Plan of Treatment Health Maintenance Due Date Last Done Comments Hepatitis C Virus Screening 1965 HIV Screening 1978 DTaP/Tdap/Td Vaccines (1 - Tdap) 1984 Hepatitis B Vaccines (1 of 3 - 19+ 3-dose series) 1984 Pap Smear (Ages 21-65) 1986 Mammogram 2005 Colonoscopy 2010 Pneumococcal Vaccines 50+ (1 of 1 - PCV) 2015 Zoster (Shingles) Vaccine (1 of 2) 2015 Influenza Vaccine 03/06/2024 COVID-19 Vaccine ( - 2023-2 5 season) 2024 Pneumococcal Vaccine: Pediat shirley (0-5 Years) and At-Risk Patients (6 to 49 Years) Aged Out No longer eligible b ased on patient's age to complete this topic Care Teams Board Of Directors Relationship Specialty Start Date End Date Franklin Sanchez PA [address] [facility] [place] [id number] PCP - General Adult Health - PA/APNP/AUTOMOTIVE CONSULTANT/SUGAR PLANTATION MANAGER 07/20/21
== END 2024-08-27 15:39 | disposition home or self-care (01) ==
LOC: HO.ACS 15:11
PROVIDERS: PCP Physician Assistant; Visit Provider Internal Medicine
DX: Z79.01 Long term (current) use of anticoagulants (principal)

== ENCOUNTER → 2024-08-27 15:11 | Outpatient (BNVA) | payer OTHER, MEDICAID, SELFPAY | PROVIDERS: PCP Physician Assistant; Visit Provider Internal Medicine | DX: I26.99 Other pulmonary embolism without acute cor pulmonale (principal); Z79.01 Long term (current) use of anticoagulants; Z51.81 Encounter for therapeutic drug level monitoring | CPT/HCPCS: 85610; 99211 ==

== ENCOUNTER 2024-09-08 09:16 | Outpatient (REF) | payer OTHER, MEDICAID, SELFPAY ==
--- OUTSIDE RECORDS SUMMARY | 2024-09-08 10:52 | XMS_ITS | Referral Summary ---
Author Organization [facility] Address [address] [place] [address] Care Team Providers Care Fryline Attendant Name Role Phone Franklin Sanchez Primary Care Provider [phone] Allergies Active Allergy Reactions Criticality Noted Date [...] Not on file Procedures * Due to [place] Bloomin[place] law, this organization might not be sharing [...] to Health Maintenance Results * Due to [place] Bl[place]omin[place] law, this organization might not be sharing negative HIV tests. * (ABNORMAL) Microalbumin, Random Urine with Creatinine (08/07/2023 9:01 AM EST) Creatinine, Random Urine 92 20 - 275 mg/dL 08/08/2023 6:45 PM EST [employer] [facility] Microalbumin 150.8 mg/dL 08/08/2023 6:45 PM EST [facility] Comment: Verified by repeat analysis. Reference Range Not established Microalbumin/Crea tinine Ratio, Random Urine 1,639(H) <30 mcg/mg creat 08/08/2023 6:45 PM EST [facility] Comment: The ADA defines abnormalities in albumin [...] Final Resul t [facility] [address] [facility] [address], [place] [address], [employer] [facility] [address] [place] [address] * (ABNORMAL) Vitamin D, 25-Hydroxy, Total, Immunoassay (06/05/2023 11:53 AM EDT) Calcidiol+ercalc idiol 22(L) 30 - 100 ng/mL 06/05/2023 9:28 PM EDT [facility] Comment: Vitamin D Status ? 25-OH Vitamin D: Deficiency: ?<20 ng/mL Insufficiency: ? 20 - 29 ng/mL Optimal: ? > or = 30 ng/mL For 25-OH Vitamin D testing on patients on D2-supplementation and patients for whom quantitation of D2 and D3 fractions is required, the QuestAssureD() 25-OH VIT D, (D2,D3), LC/MS/MS is recommended: order code 45342 (patients >2yrs). See Note 1 Note 1 For additional information, please refer to http://education.SprinkleBit/faq/KVM833 (This link is being provided for informational/ educational purposes only.) Blood Structure of peripheral vein / Unknown 06/05/2023 11:53 AM EDT 06/05/2023 7:56 PM EDT Narrative [facility] - 06/09/2023 5:04 AM EDT FASTING:NO us Anupama Bynum DO LAB BLOOD ORDERABLES Final Resul t [facility] [address] [facility] [address], [place] [address], [employer] [facility] [address] [place] [address] * (ABNORMAL) CBC (06/05/2023 11:53 AM EDT) White Blood Cell Count 5.9 3.8 - 10.8 Thousand/ uL 06/05/2023 10:37 PM EDT [employer] [facility] Red Blood Cell Count 3.82 3.80 - 5.10 Million/u L 06/05/2023 10:37 PM EDT [employer] [facility] Hemoglobin 11.4(L) 11.7 - 15.5 g/dL 06/05/2023 10:37 PM EDT [employer] [facility] Hematocrit 34.4(L) 35.0 - 45.0 % 06/05/2023 10:37 PM EDT [employer] [facility] MCV 90.1 80.0 - 100.0 fL 06/05/2023 10:37 PM EDT [employer] [facility] MCH 29.8 27.0 - 33.0 pg 06/05/2023 10:37 PM EDT [employer] [facility] MCHC 33.1 32.0 - 36.0 g/dL 06/05/2023 10:37 PM EDT [employer] [facility] RDW 12.6 11.0 - 15.0 % 06/05/2023 10:37 PM EDT [employer] [facility] Platelet Count 310 140 - 400 Thousand/ uL 06/05/2023 10:37 PM EDT [facility] MPV 11.4 7.5 - 12.5 fL 06/05/2023 10:37 PM EDT [facility] Blood Structure of peripheral vein / Unknown 06/05/2023 11:53 AM EDT 06/05/2023 7:48 PM EDT Narrative [facility] - 06/09/2023 5:04 AM EDT FASTING:NO Anupamanahun Bynum DO LAB BLOOD ORDERABLES Final Resul t [facility] [address] [facility] [address], [place] [address], [employer] [facility] [address] [place] [address] * (ABNORMAL) PTH, Intact (without Calcium) (06/05/2023 11:53 AM EDT) Parathyroid Hormone, Intact 205(H) 16 - 77 pg/mL 06/06/2023 1:16 AM EDT [facility] Comment: Interpretive Guide ?Intact PTH ? Calcium [...] Final Resul t [facility] [address] [facility] [address], [place] [address], [employer] [facility] [address] [place] [address] * (ABNORMAL) Renal Function Panel (06/05/2023 11:53 AM EDT) [facility] Glucose 89 65 - 139 mg/dL 06/05/2023 10:49 PM EDT [employer] [facility] Comment: ? Non-fasting reference interval BUN 39(H) 7 - 25 mg/dL 06/05/2023 10:49 PM EDT [employer] [facility] Creatinine 2.61(H) 0.50 - 1.03 mg/dL 06/05/2023 10:49 PM EDT [employer] [facility] eGFR 21(L) > OR = 60 mL/min/1. 73m2 06/05/2023 10:49 PM EDT [employer] [facility] Bun/Creatinine Ratio 15 6 - 22 (calc) 06/05/2023 10:49 PM EDT [employer] [facility] Sodium 137 135 - 146 mmol/L 06/05/2023 10:49 PM EDT [employer] [facility] Potassium 4.6 3.5 - 5.3 mmol/L 06/05/2023 10:49 PM EDT [employer] [facility] Chloride 111(H) 98 - 110 mmol/L 06/05/2023 10:49 PM EDT [employer] [facility] Carbon Dioxide 18(L) 20 - 32 mmol/L 06/05/2023 10:49 PM EDT [employer] [facility] Calcium 9.8 8.6 - 10.4 mg/dL 06/05/2023 10:49 PM [employer] [facility] Phosphate 3.5 2.5 - 4.5 mg/dL 06/05/2023 10:49 PM EDT [employer] [facility] Albumin 4.0 3.6 - 5.1 g/dL 06/05/2023 10:49 PM EDT [facility] Blood Structure of peripheral vein / Unknown 06/05/2023 11:53 AM EDT 06/05/2023 7:56 PM EDT Narrative [facility] - 06/09/2023 5:04 AM EDT FASTING:NO us Anupama Bynum DO LAB BLOOD ORDERABLES Final Resul t [facility] [address] [facility] [address], [place] [address], [place] [phone] [employer] [facility] [address] [place] [address] from Last 3 Months or Most Recently Relevant to Health Maintenance Insurance * Guarantor: Aneta Gan Account Type Relation to Patient Date of Phone Billing Address Personal/Family Self 1965 [phone] (Work) [address] [place] [id number] [facility] Member Subscriber Plan / Payer (Ef fective 2018-Present) Name:Aneta Gan Relation to Subscriber:Self Name:Aneta Gan Payer ID:[id number] Type:HMO Address: [facility], [address] Care Teams Fryline Attendant Relationship Specialty Start Date End Date Franklin Sanchez PA [address] [place] [phone] PCP - General 06/05/23
--- OUTSIDE RECORDS SUMMARY | 2024-09-08 10:52 | XMS_ITS | Clinical Summary ---
Author Organization [facility] Address [address] [place] [address] Care Team Providers Care Babcock Tester Name Role Phone Franklin Sanchez Primary Care [...] age to complete this topic Care Teams Babcock Tester Relationship Specialty Start Date End Date Franklin Sanchez PA [address] [place] [place] [phone] PCP - General Adult Health - PA/APNP/RELIGIOUS EDUCATION DIRECTOR/TOOL POLISHER 07/20/21
--- OUTSIDE RECORDS SUMMARY | 2024-09-08 10:52 | XMS_ITS | Encounter Summary ---
Author Organization [facility] Address [address] [place] [address] Phone Care Team Providers Care Mds Rn Name Role Phone Unavailable Primary Care Provider Unavailabl e Encounter Details Date Type Department Care Team (Late st Contact Info) Description 08/10/2022 Telephone [facility] [address] [place] [address] Roe Morrissey MD Social History [...] Iris Gee - 08/10/2022 10:19 AM EST [facility] insurance verification called, pt will need a PA for her truxima infusion that is scheduled for tomorrow. This will need to go through [facility]. documented in this encounter Plan of [...] EDT) Calcium 9.1 8.4 - 10.2 mg/dL [facility] 11/06/2022 4:20 PM EDT 11/06/2022 4:20 PM EDT Roe Morrissey MD LAB BLOOD ORDERABLES Final Res ult Performing Organization Address [facility] Co de Phone Number [place] * (ABNORMAL) Creatinine (11/06/2022 4:20 PM EDT) Creatinine Serum 2.59(H) 0.5 - 1.4 mg/dL [facility] e[facility] Comment: NOTE: ??For -[place] individuals, multiply the result ? by 1.210. Chronic Kidney Disease: ??Estimated GFR < 60 mL/min/1.73m2 Severe Kidney Disease: ??Estimated GFR < 15 mL/min/1.73m2 11/06/2022 4:20 PM EDT 11/06/2022 4:20 PM EDT Roe Morrissey MD LAB BLOOD ORDERABLES Final Res ult Performing Organization Address [facility] Co de Phone Number [place] * (ABNORMAL) BUN (11/06/2022 4:20 PM EDT) BUN 44(H) 9 - 16 mg/dL [place] 11/06/2022 4:20 PM EDT 11/06/2022 4:20 PM EDT Roe Morrissey MD LAB BLOOD ORDERABLES Final Res ult Performing Organization Address [facility] Co de Phone Number [place] * [...]
--- OUTSIDE RECORDS SUMMARY | 2024-09-08 10:52 | XMS_ITS | Clinical Summary ---
Author Organization [facility] Address [address] [place] [address] Care Team Providers Care Film Critic Name Role Phone Franklin Sanchez Primary Care Provider [phone] Allergies Active Allergy Reactions Criticality Noted Date [...] Nephrology Completed 08/07/2023 Procedures * Due to [place] [employer] law, this organization might not be sharing [...] to Health Maintenance Results * Due to [place] [employer] law, this organization might not be sharing negative HIV tests. * (ABNORMAL) Microalbumin, Random Urine with Creatinine (08/07/2023 9:01 AM EST) Creatinine, Random Urine 92 20 - 275 mg/dL 08/08/2023 6:45 PM EST [facility] Microalbumin 150.8 mg/dL 08/08/2023 6:45 PM EST [facility] Comment: Verified by repeat analysis. Reference Range Not established Microalbumin/Crea tinine Ratio, Random Urine 1,639(H) <30 mcg/mg creat 08/08/2023 6:45 PM EST [facility] Comment: The ADA defines abnormalities in albumin [...] ORDERABLES Final Resul t [facility] [address] [facility] 3rd Floor, [place] [address], [employer] [employer] [address] [place] [address] * (ABNORMAL) Vitamin D, 25-Hydroxy, Total, Immunoassay (06/05/2023 11:53 AM EDT) Calcidiol+ercalc idiol 22(L) 30 - 100 ng/mL 06/05/2023 9:28 PM EDT [employer] [employer] Comment: Vitamin D Status ? 25-OH Vitamin D: Deficiency: ?<20 ng/mL Insufficiency: ? 20 - 29 ng/mL Optimal: ? > or = 30 ng/mL For 25-OH Vitamin D testing on patients on D2-supplementation and patients for whom quantitation of D2 and D3 fractions is required, the QuestAssureD() 25-OH VIT D, (D2,D3), LC/MS/MS is recommended: order code 67417 (patients >2yrs). See Note 1 Note 1 For additional information, please refer to http://education.[place]/faq/MYQ396 (This link is being provided for informational/ educational purposes only.) Blood Structure of peripheral vein / Unknown 06/05/2023 11:53 AM EDT 06/05/2023 7:56 PM EDT Narrative [facility] - 06/09/2023 5:04 AM EDT FASTING:NO Anupama Bynum DO LAB BLOOD ORDERABLES Final Resul t [facility] [address] [facility] [address]rd Floor, [place] [address], [facility] [address] [place] [address] * (ABNORMAL) CBC (06/05/2023 11:53 AM EDT) White Blood Cell Count 5.9 3.8 - 10.8 Thousand/ uL 06/05/2023 10:37 PM EDT [facility] Red Blood Cell Count 3.82 3.80 - 5.10 Million/u L 06/05/2023 10:37 PM EDT [facility] Hemoglobin 11.4(L) 11.7 - 15.5 g/dL 06/05/2023 10:37 PM EDT [facility] Hematocrit 34.4(L) 35.0 - 45.0 % 06/05/2023 10:37 PM EDT [facility] MCV 90.1 80.0 - 100.0 fL 06/05/2023 10:37 PM EDT [facility] MCH 29.8 27.0 - 33.0 pg 06/05/2023 10:37 PM EDT [facility] MCHC 33.1 32.0 - 36.0 g/dL 06/05/2023 10:37 PM EDT [facility] RDW 12.6 11.0 - 15.0 % 06/05/2023 10:37 PM EDT [facility] Platelet Count 310 140 - 400 Thousand/ uL 06/05/2023 10:37 PM EDT [facility] MPV 11.4 7.5 - 12.5 fL 06/05/2023 10:37 PM EDT [facility] Blood Structure of peripheral vein / Unknown 06/05/2023 11:53 AM EDT 06/05/2023 7:48 PM EDT [facility] - 06/09/2023 5:04 AM EDT FASTING:NO us Anupama Bynum DO LAB BLOOD ORDERABLES Final Resul t [facility] [address] [facility] [address], [place] [address], [employer] [employer] [address] [place] [address] * (ABNORMAL) PTH, Intact (without Calcium) (06/05/2023 11:53 AM EDT) Parathyroid Hormone, Intact 205(H) 16 - 77 pg/mL 06/06/2023 1:16 AM EDT [facility] [employer] Comment: Interpretive Guide ?Intact PTH ? Calcium [...] AM EDT 06/05/2023 11:02 PM EDT Narrative [facility] - 06/09/2023 5:04 AM EDT FASTING:NO us Anupama Bynum DO LAB BLOOD ORDERABLES Final Resul t [facility] [address] [facility] [address] Floor, [place] [address], [employer] [facility] [address] [place] [address] * (ABNORMAL) Renal Function Panel (06/05/2023 11:53 AM EDT) Glucose 89 65 - 139 mg/dL 06/05/2023 10:49 PM EDT [employer] [facility] Comment: ? Non-fasting reference interval BUN 39(H) 7 - 25 mg/dL 06/05/2023 10:49 PM EDT [facility] Creatinine 2.61(H) 0.50 - 1.03 mg/dL 06/05/2023 10:49 PM EDT [facility] eGFR 21(L) > OR = 60 mL/min/1. 73m2 06/05/2023 10:49 PM [facility] Bun/Creatinine Ratio 15 6 - 22 (calc) 06/05/2023 10:49 PM EDT [facility] Sodium 137 135 - 146 mmol/L 06/05/2023 10:49 PM EDT [facility] Potassium 4.6 3.5 - 5.3 mmol/L 06/05/2023 10:49 PM [facility] Chloride 111(H) 98 - 110 mmol/L 06/05/2023 10:49 PM [facility] Carbon Dioxide 18(L) 20 - 32 mmol/L 06/05/2023 10:49 PM [facility] Calcium 9.8 8.6 - 10.4 mg/dL 06/05/2023 10:49 PM EDT [facility] Phosphate 3.5 2.5 - 4.5 mg/dL 06/05/2023 10:49 PM [facility] Albumin 4.0 3.6 - 5.1 g/dL 06/05/2023 10:49 PM [facility] Blood Structure of peripheral vein / Unknown 06/05/2023 11:53 AM EDT 06/05/2023 7:56 PM EDT N[facility]ative [facility] - 06/09/2023 5:04 AM EDT FASTING:NO us Anupamanahun Bynum DO LAB BLOOD ORDERABLES Final Resul t [facility] [address] [facility] [address]rd Floor, [place] [address], [facility] [address] [place] [address] from Last 3 Months or Most Recently Relevant to Health Maintenance Insurance * Guarantor: Aneta Gan Account Type Relation to Patient Date of Phone Billing Address Personal/Family Self 1965 [phone] (Work) [address] [place] [address] [facility] Care Teams Film Critic Relationship Specialty Start Date End Date Franklin Sanchez PA [address] [place] [phone] PCP - General 06/05/23
--- OUTSIDE RECORDS SUMMARY | 2024-09-08 10:52 | XMS_ITS | Clinical Summary ---
Author Organization [facility] Address [address] [place] [address] Phone Care Team Providers Care Orchid Worker Name Role Phone Unavailable Primary Care Provider [...] 03/02/2016 Active ergocalciferol (VITAMIN D-2) 1.25 MG (09086 UT) capsule Take 1 capsule by mouth [...] Sigmoidoscopy 2014 Influenza Vaccine (#1) [address] [place] [address] [place] [facility] [place]
[2024-09-08 11:27] LABS: Influenza A PCR NEGATIVE (Negative); Influenza B PCR NEGATIVE (Negative); Resp Syncy Virus RNA Qual PCR NEGATIVE (Negative); SARS COV2 PCR INHOUSE POSITIVE (Negative)
== END 2024-09-08 09:17 | disposition home or self-care (01) ==
LOC: HO.LAB 09:16
PROVIDERS: PCP Physician Assistant
DX: U07.1 COVID-19 (principal); J06.9 Acute upper respiratory infection, unspecified; R09.81 Nasal congestion; H60.503 Unspecified acute noninfective otitis externa, bilateral
CPT/HCPCS: 0241U; 96127

== ENCOUNTER 2024-09-08 09:16 | Outpatient (AMB) | payer OTHER, MEDICAID, SELFPAY ==
--- OUTSIDE RECORDS SUMMARY | 2024-09-08 09:33 | XMS_ITS | Clinical Summary ---
Author Organization [facility] Address [address] [place] [address] Care Team Providers Care Buck Swamper Name Role Phone Franklin Sanchez Primary Care Provider [phone] Allergies Active Allergy Reactions Criticality Noted Date [...] Nephrology Completed 08/07/2023 Procedures * Due to [place] [employer] law, this organization might not be sharing [...] to Health Maintenance Results * Due to [place] [employer] law, this organization might not be sharing negative HIV tests. * (ABNORMAL) Microalbumin, Random Urine with Creatinine (08/07/2023 9:01 AM EST) Creatinine, Random Urine 92 20 - 275 mg/dL 08/08/2023 6:45 PM EST [facility] Microalbumin 150.8 mg/dL 08/08/2023 6:45 PM EST [facility] Comment: Verified by repeat analysis. Reference Range Not established Microalbumin/Crea tinine Ratio, Random Urine 1,639(H) <30 mcg/mg creat 08/08/2023 6:45 PM EST [employer] Comment: The ADA defines abnormalities in albumin [...] ORDERABLES Final Resul t [facility] [address] [facility] 3rd Floor, [place] [address], [employer] [address] [place] [address] * (ABNORMAL) Vitamin D, 25-Hydroxy, Total, Immunoassay (06/05/2023 11:53 AM EDT) Calcidiol+ercalc idiol 22(L) 30 - 100 ng/mL 06/05/2023 9:28 PM EDT [employer] Comment: Vitamin D Status ? 25-OH Vitamin D: Deficiency: ?<20 ng/mL Insufficiency: ? 20 - 29 ng/mL Optimal: ? > or = 30 ng/mL For 25-OH Vitamin D testing on patients on D2-supplementation and patients for whom quantitation of D2 and D3 fractions is required, the QuestAssureD() 25-OH VIT D, (D2,D3), LC/MS/MS is recommended: order code 86538 (patients >2yrs). See Note 1 Note 1 For additional information, please refer to http://education.katena/faq/PSC235 (This link is being provided for informational/ educational purposes only.) Blood Structure of peripheral vein / Unknown 06/05/2023 11:53 AM EDT 06/05/2023 7:56 PM EDT Narrative [facility] - 06/09/2023 5:04 AM EDT FASTING:NO Anupama Bynum DO LAB BLOOD ORDERABLES Final Resul t [facility] [address] [facility] 3rd Floor, [place] [address], [facility] [address] [place] [address] * (ABNORMAL) CBC (06/05/2023 11:53 AM EDT) White Blood Cell Count 5.9 3.8 - 10.8 Thousand/ uL 06/05/2023 10:37 PM EDT [facility] Red Blood Cell Count 3.82 3.80 - 5.10 Million/u L 06/05/2023 10:37 PM EDT [facility] Hemoglobin 11.4(L) 11.7 - 15.5 g/dL 06/05/2023 10:37 PM EDT [facility] Hematocrit 34.4(L) 35.0 - 45.0 % 06/05/2023 10:37 PM EDT [facility] MCV 90.1 80.0 - 100.0 fL 06/05/2023 10:37 PM EDT [facility] MCH 29.8 27.0 - 33.0 pg 06/05/2023 10:37 PM EDT [facility] MCHC 33.1 32.0 - 36.0 g/dL 06/05/2023 10:37 PM EDT [facility] RDW 12.6 11.0 - 15.0 % 06/05/2023 10:37 PM EDT [facility] Platelet Count 310 140 - 400 Thousand/ uL 06/05/2023 10:37 PM EDT [facility] MPV 11.4 7.5 - 12.5 fL 06/05/2023 10:37 PM EDT [employer] Blood Structure of peripheral vein / Unknown 06/05/2023 11:53 AM EDT 06/05/2023 7:48 PM EDT [facility] - 06/09/2023 5:04 AM EDT FASTING:NO us Anupama Bynum DO LAB BLOOD ORDERABLES Final Resul t [facility] [address] [facility] [address], [place] [address], [employer] [address] [place] [address] * (ABNORMAL) PTH, Intact (without Calcium) (06/05/2023 11:53 AM EDT) Parathyroid Hormone, Intact 205(H) 16 - 77 pg/mL 06/06/2023 1:16 AM EDT [employer] Comment: Interpretive Guide ?Intact PTH ? Calcium [...] AM EDT 06/05/2023 11:02 PM EDT Narrative [facility] - 06/09/2023 5:04 AM EDT FASTING:NO us Anupama Bynum DO LAB BLOOD ORDERABLES Final Resul t [facility] [address] [facility] [address], [place] [address], [employer] [facility] [address] [place] [address] * (ABNORMAL) Renal Function Panel (06/05/2023 11:53 AM EDT) Glucose 89 65 - 139 mg/dL 06/05/2023 10:49 PM EDT [employer] [facility] Comment: ? Non-fasting reference interval BUN 39(H) 7 - 25 mg/dL 06/05/2023 10:49 PM EDT [facility] Creatinine 2.61(H) 0.50 - 1.03 mg/dL 06/05/2023 10:49 PM EDT [facility] eGFR 21(L) > OR = 60 mL/min/1. 73m2 06/05/2023 10:49 PM [facility] Bun/Creatinine Ratio 15 6 - 22 (calc) 06/05/2023 10:49 PM EDT [facility] Sodium 137 135 - 146 mmol/L 06/05/2023 10:49 PM EDT [facility] Potassium 4.6 3.5 - 5.3 mmol/L 06/05/2023 10:49 PM EDBeval[facility] Chloride 111(H) 98 - 110 mmol/L 06/05/2023 10:49 PM [facility] Carbon Dioxide 18(L) 20 - 32 mmol/L 06/05/2023 10:49 PM [facility] Calcium 9.8 8.6 - 10.4 mg/dL 06/05/2023 10:49 PM EDT [facility] Phosphate 3.5 2.5 - 4.5 mg/dL 06/05/2023 10:49 PM [facility] Albumin 4.0 3.6 - 5.1 g/dL 06/05/2023 10:49 PM [employer] [facility] Blood Structure of peripheral vein / Unknown 06/05/2023 11:53 AM EDT 06/05/2023 7:56 PM EDT Narrative [facility] - 06/09/2023 5:04 AM EDT FASTING:NO us Anupamanahun Bynum DO LAB BLOOD ORDERABLES Final Resul t [facility] [address] [facility] [address], [place] [address], [facility] [address] [place] [address] from Last 3 Months or Most Recently Relevant to Health Maintenance Insurance * Guarantor: Aneta Gan Account Type Relation to Patient Date of Phone Billing Address Personal/Family Self 1965 [phone] (Work) [address] [place] [id number] [facility] Care Teams Buck Swamper Relationship Specialty Start Date End Date Franklin Sanchez PA [address] [place] [id number] PCP - General 06/05/23
--- OUTSIDE RECORDS SUMMARY | 2024-09-08 09:34 | XMS_ITS | Encounter Summary ---
Author Organization [facility] Address [address] [place] [address] Phone Care Team Providers Care Stringer Up Soldering Machine Name Role Phone Unavailable Primary Care Provider Unavailabl e Encounter Details Date Type Department Care Team (Late st Contact Info) Description 08/10/2022 Telephone [facility] [address] [place] [address] Roe Morrissey MD Social History [...] Iris Gee - 08/10/2022 10:19 AM EST [facility] insurance verification called, pt will need a PA for her truxima infusion that is scheduled for tomorrow. This will need to go through [facility]. documented in this encounter Plan of [...] EDT) Calcium 9.1 8.4 - 10.2 mg/dL [facility] 11/06/2022 4:20 PM EDT 11/06/2022 4:20 PM EDT Roe Morrissey MD LAB BLOOD ORDERABLES Final Res ult Performing Organization Address [facility] Co de Phone Number [place] * (ABNORMAL) Creatinine (11/06/2022 4:20 PM EDT) Creatinine Serum 2.59(H) 0.5 - 1.4 mg/dL [facility] Comment: NOTE: ??For -[place]ub[place] individuals, multiply the result ? by 1.210. Chronic Kidney Disease: ??Estimated GFR < 60 mL/min/1.73m2 Severe Kidney Disease: ??Estimated GFR < 15 mL/min/1.73m2 11/06/2022 4:20 PM EDT 11/06/2022 4:20 PM EDT Roe Morrissey MD LAB BLOOD ORDERABLES Final Res ult Performing Organization Address [facility] Co de Phone Number [place] * (ABNORMAL) BUN (11/06/2022 4:20 PM EDT) BUN 44(H) 9 - 16 mg/dL [facility] 11/06/2022 4:20 PM EDT 11/06/2022 4:20 PM EDT Roe Morrissey MD LAB BLOOD ORDERABLES Final Res ult Performing Organization Address [facility] Co de Phone Number [place] * (ABNORMAL) [...]
--- OUTSIDE RECORDS SUMMARY | 2024-09-08 09:34 | XMS_ITS | Clinical Summary ---
Author Organization [facility] Address [address] [place] [address] Phone Care Team Providers Care Snaker Name Role Phone Unavailable Primary Care Provider [...] 03/02/2016 Active ergocalciferol (VITAMIN D-2) 1.25 MG (19515 UT) capsule Take 1 capsule by mouth [...] Sigmoidoscopy 2014 Influenza Vaccine (#1) [address] [place] [address] [place] [facility] [place]
--- OUTSIDE RECORDS SUMMARY | 2024-09-08 09:34 | XMS_ITS | Clinical Summary ---
Author Organization [facility] Address [address] [place] [address] Care Team Providers Care Burnt Lime Drawer Name Role Phone Franklin Sanchez Primary Care [...] age to complete this topic Care Teams Burnt Lime Drawer Relationship Specialty Start Date End Date Franklin Sanchez PA [address] [facility] [place] [id number] PCP - General Adult Health - PA/APNP/FENCE ERECTOR SUPERVISOR/QUALITY CONTROL LAB TECH 07/20/21
--- OUTSIDE RECORDS SUMMARY | 2024-09-08 09:34 | XMS_ITS | Referral Summary ---
Author Organization [facility] Address [address] [place] [address] Care Team Providers Care Continuous Pickling Line Pickler Helper Name Role Phone Franklin Sanchez Primary Care Provider [phone] Allergies Active Allergy Reactions Criticality Noted Date [...] Not on file Procedures * Due to [place] [employer] law, this organization might not be sharing [...] to Health Maintenance Results * Due to [place] [employer] law, this organization might not be sharing negative HIV tests. * (ABNORMAL) Microalbumin, Random Urine with Creatinine (08/07/2023 9:01 AM EST) Creatinine, Random Urine 92 20 - 275 mg/dL 08/08/2023 6:45 PM EST [employer] [facility] Microalbumin 150.8 mg/dL 08/08/2023 6:45 PM EST [employer] Comment: Verified by repeat analysis. Reference Range Not established Microalbumin/Crea tinine Ratio, Random Urine 1,639(H) <30 mcg/mg creat 08/08/2023 6:45 PM EST [employer] Comment: The ADA defines abnormalities in albumin [...] ORDERABLES Final Resul t [facility] [address] [facility] 3rd Floor, [place] [address], [employer] [facility] [address] [place] [address] * (ABNORMAL) Vitamin D, 25-Hydroxy, Total, Immunoassay (06/05/2023 11:53 AM EDT) Calcidiol+ercalc idiol 22(L) 30 - 100 ng/mL 06/05/2023 9:28 PM EDT [employer] Comment: Vitamin D Status ? 25-OH Vitamin D: Deficiency: ?<20 ng/mL Insufficiency: ? 20 - 29 ng/mL Optimal: ? > or = 30 ng/mL For 25-OH Vitamin D testing on patients on D2-supplementation and patients for whom quantitation of D2 and D3 fractions is required, the QuestAssureD() 25-OH VIT D, (D2,D3), LC/MS/MS is recommended: order code 46100 (patients >2yrs). See Note 1 Note 1 For additional information, please refer to http://education.[employer]/faq/JUT726 (This link is being provided for informational/ educational purposes only.) Blood Structure of peripheral vein / Unknown 06/05/2023 11:53 AM EDT 06/05/2023 7:56 PM EDT Narrative [facility] - 06/09/2023 5:04 AM EDT FASTING:NO us Anupama Bynum DO LAB BLOOD ORDERABLES Final Resul t [facility] [address] [facility] 3rd [address], [place] [address], [employer] [facility] [address] [place] [address] * (ABNORMAL) CBC (06/05/2023 11:53 AM EDT) White Blood Cell Count 5.9 3.8 - 10.8 Thousand/ uL 06/05/2023 10:37 PM EDT [facility] Red Blood Cell Count 3.82 3.80 - 5.10 Million/u L 06/05/2023 10:37 PM EDT [employer] Hemoglobin 11.4(L) 11.7 - 15.5 g/dL 06/05/2023 10:37 PM EDT [employer] Hematocrit 34.4(L) 35.0 - 45.0 % 06/05/2023 10:37 PM EDT [employer] [facility] MCV 90.1 80.0 - 100.0 fL 06/05/2023 10:37 PM EDT [employer] [facility] MCH 29.8 27.0 - 33.0 pg 06/05/2023 10:37 PM EDT [employer] MCHC 33.1 32.0 - 36.0 g/dL 06/05/2023 10:37 PM EDT [employer] RDW 12.6 11.0 - 15.0 % 06/05/2023 10:37 PM EDT [employer] [facility] Platelet Count 310 140 - 400 Thousand/ uL 06/05/2023 10:37 PM EDT [employer] MPV 11.4 7.5 - 12.5 fL 06/05/2023 10:37 PM EDT [employer] Blood Structure of peripheral vein / Unknown 06/05/2023 11:53 AM EDT 06/05/2023 7:48 PM EDT N[facility]ative [facility] - 06/09/2023 5:04 AM EDT FASTING:NO Anupamanahun Bynum DO LAB BLOOD ORDERABLES Final Resul t [facility] [address] [facility] [address], [place] [address], [employer] [facility] [address] [place] [address] * (ABNORMAL) PTH, Intact (without Calcium) (06/05/2023 11:53 AM EDT) Parathyroid Hormone, Intact 205(H) 16 - 77 pg/mL 06/06/2023 1:16 AM EDT [employer] Comment: Interpretive Guide ?Intact PTH ? Calcium [...] ORDERABLES Final Resul t [facility] [address] [facility] [address], [place] [address], [employer] [address] [place] [address] * (ABNORMAL) Renal Function Panel (06/05/2023 11:53 AM EDT) [facility] Glucose 89 65 - 139 mg/dL 06/05/2023 10:49 PM EDT [facility] Comment: ? Non-fasting reference interval BUN 39(H) 7 - 25 mg/dL 06/05/2023 10:49 PM EDT [facility] Creatinine 2.61(H) 0.50 - 1.03 mg/dL 06/05/2023 10:49 PM EDT [employer] eGFR 21(L) > OR = 60 mL/min/1. 73m2 06/05/2023 10:49 PM EDT [facility] Bun/Creatinine Ratio 15 6 - 22 (calc) 06/05/2023 10:49 PM EDT [facility] Sodium 137 135 - 146 mmol/L 06/05/2023 10:49 PM EDT [facility] Potassium 4.6 3.5 - 5.3 mmol/L 06/05/2023 10:49 PM EDT [employer] Chloride 111(H) 98 - 110 mmol/L 06/05/2023 10:49 PM EDT [facility] Carbon Dioxide 18(L) 20 - 32 mmol/L 06/05/2023 10:49 PM EDT [facility] Calcium 9.8 8.6 - 10.4 mg/dL 06/05/2023 10:49 PM [employer] [facility] Phosphate 3.5 2.5 - 4.5 mg/dL 06/05/2023 10:49 PM EDT [facility] Albumin 4.0 3.6 - 5.1 g/dL 06/05/2023 10:49 PM EDT [employer] Blood Structure of peripheral vein / Unknown 06/05/2023 11:53 AM EDT 06/05/2023 7:56 PM EDT Narrative [facility] - 06/09/2023 5:04 AM EDT FASTING:NO us Anupama Bynum DO LAB BLOOD ORDERABLES Final Resul t [facility] [address] [facility] [address], [place] [address], [place] [phone] [facility] [address] [place] [address] from Last 3 Months or Most Recently Relevant to Health Maintenance Insurance * Guarantor: Aneta Gan Account Type Relation to Patient Date of Phone Billing Address Personal/Family Self 1965 [phone] (Work) [address] [place] [id number] [facility] Member Subscriber Plan / Payer (Ef fective 2018-Present) Name:Aneta Gan Relation to Subscriber:Self Name:Aneta Gan Payer ID:[id number] Type:HMO Address: [facility], [address] Care Teams Continuous Pickling Line Pickler Helper Relationship Specialty Start Date End Date Franklin Sanchez PA [address] [place] [id number] PCP - General 06/05/23
[2024-09-08 09:35] VITALS: BP 124/82; PULSE 102; TEMP 37.2; O2SAT 96; BMI 27.7
--- NOTE | 2024-09-08 09:35 | MHC.PC.OV ---
Vital Signs 09/08/24 09:35 Height 5 ft Weight 142 lb BMI 27.7 BP 124/82 Blood Pressure Location Lt brachial Position Sitting Pulse 102 H Pulse Source Pulse Oximeter Temp 99.0 F Temp Source Oral Pulse Oximetry (%) 96 Oxygen Delivery Method Room Air Intake Visit Reasons: Coughing Allergies rituximab [From Rituxan] Allergy (Severe, Verified 09/25/24 15:08) Anaphylaxis cephalexin [From Keflex] Allergy (Unknown, Verified 09/25/24 15:08) RED+ITCHY,RASH Cephalosporins [CEPHALOSPORINS] Allergy (Unknown, Verified 09/25/24 15:08) RED+ITCHY Sulfa (Sulfonamide Antibiotics) [SULFA(SULFONAMIDE ANTIBIOTICS)] Allergy (Unknown, Verified 09/25/24 15:08) RED+ITCHY mycophenolate mofetil [From CellCept] Adverse Reaction (Intermediate, Verified 09/25/24 15:08) rash cellcept Allergy (Severe, Uncoded 09/08/24 09:42) Hives retuxin Adverse Reaction (Severe, Uncoded 09/08/24 09:42) Abdominal Pain Medication List - Last Reconciled 09/08/24 by RICCO Rodriguez [4Life transfer factor PO BID] atorvastatin 20 mg PO BEDTIME 30 days calcitriol 0.25 mcg PO DAILY clobetasol 0.05% 1 appl topical DAILY erythromycin 1 appl ophthalmic (eye) DAILY 15 days fluocinonide 0.05% appl topical gabapentin 200 mg (2 x 100 mg) PO DAILY 30 days [KBU PO BID] levothyroxine 100 mcg PO DAILY lisinopril 2.5 mg PO DAILY loratadine 10 mg PO DAILY 14 days magnesium oxide 250 mg PO BID prednisone Starting October 04, take 3 tabs daily for 1 month then remain on 2 tabs daily [Renuvo PO BID] sodium bicarbonate 650 mg PO BID [Super Detox PO] warfarin 5 mg See Protocol PO DAILY Tobacco use date assessed: 09/08/24 Dental Screening Dental Screen Date: 09/08/24 Did you have a dental visit in the last 12 months?: Yes Did you have a dental problem in the last 6 months where you did not have access to dental care?: No Was dental information given to patient?: Patient has dentist HPI Coughing HPI Details Patient is a 59-year-old female was presenting today with cold symptoms. She has medical history of SLE, peripheral neuropathy, pharmacy smoker, CHE, SLE glomerulonephritis syndrom, hypothyroidism, hypertriglyceridemia, CKD, current use of anticoagulant therapy Patient reports that on Sunday she was at work in a meeting and everyone was sick On Sunday she woke up feeling not so well, by Sunday evening she started having sore throat, nonproductive cough, fevers and chills, headaches, and body aches The patient reports that she has been taking Tylenol that helps with the fever and chills, but returns once the Tylenol is worn off She reports that when the chills come on she does get some shortness of breath, she think that it is partly because she is holding her breath because of the chills because when she takes the Tylenol and she no longer has chills and the shortness of breath goes away She reports that she had her flu vaccine last month about 3-4 weeks ago at [facility] Reports that there are no change in her symptoms so far she has been the same since the beginning The patient also reports that she does have some nasal congestion and ear ache bilaterally On exam: Bilateral nares Maria Ines with boggy turbinates, bilateral ear lower aspects irritated/red, dried up cerumen Positive maxillary sinus pressure, lungs are clear no shortness a breath Order Flonase, loratadine in ofloxacin ear drops send the patient for respiratory panel, if negative we will treat with antibiotics [facility] Medical History Prediabetes SLE glomerulonephritis syndrome History of pulmonary embolism Vitamin D deficiency Hypertriglyceridemia Hypothyroidism Surgical History Hx of tubal ligation Family History Father Family history unknown Mother Hypertension Diabetes Deep vein thrombosis CVA (cerebral vascular accident) Brother CVA (cerebral vascular accident), Onset Age: 48 Brother CVA (cerebral vascular accident), Onset Age: 38 Social History Household Members: None Housing: House Alcohol intake: former Patient Tobacco Use Status: Former Tobacco user Tobacco use type: Cigarette e-Cigarette/Vaping Use: Never Used Second Hand Smoke Exposure: Yes service: No Current occupational status: employed 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 1. Little interest or pleasure in doing things: not at all 2. Feeling down, depressed, or hopeless: not at all 3. Trouble falling or staying asleep, or sleeping too much: not at all 4. Feeling tired or having little energy: not at all 5. Poor appetite or overeating: not at all 6. Feeling bad about yourself - or that you are a failure or have let yourself or your family down: not at all 7. Trouble concentrating on things, such as reading the newspaper or watching television: not at all 8. Moving or speaking so slowly that other people could have noticed. Or the opposite - being so fidgety or restless that you have been moving around a lot more than usual: not at all 9. Thoughts that you would be better off or of hurting yourself in some way: not at all Total score: 0 Depression Screening Interpretation: Negative Depression Screening Done: Yes 81399 - PHQ-9 Billing: Yes Source: Developed by Drs. Gino Young, Seble Chahal, Dennis Zendejas and colleagues, with an educational clara from [employer]. Thrive Questionnaire Date Thrive assessed: 09/08/24 I am a: Patient What is your living situation today?: I have a steady place to live Within the past 12 months, did the food you bought not last and you didn't have the money to get more?: Never true Within the past 12 months, did you worry whether your food would run out before you got money to buy more?: Never true Do you have trouble paying for medicines?: No Do you have trouble getting transportation to medical appointments?: No Do you have trouble paying your heating and electricity bill?: No Do you have trouble taking care of your child, family member or friend?: No Do you have trouble with day-to-day activities such as bathing, preparing meals, shopping, managing finances, etc.?: No Are you currently unemployed and looking for a job?: No Are you interested in more education?: No Currently or been in a relationship where the following occur: No concerns reported THRIVE Score: 0 AUDIT C Alcohol Use Questionnaire (AUDIT-C) 1. How often do you have a drink containing alcohol?: Never 3. How often do you have six or more drinks on one occasion?: Never Total Score: 0 CHE-7 AMB Questionnaire CHE-7 Date CHE - 7 assessed: 09/08/24 Feeling nervous, anxious, or on edge: 0 = Not at all Not being able to stop or control worryin = Not at all Worrying too much about different things: 0 = Not at all Trouble relaxin = Not at all Being so restless that it is hard to sit still: 0 = Not at all Becoming easily annoyed or irritable: 0 = Not at all Feeling afraid as if something awful might happen: 0 = Not at all Total CHE-7 score (0-4 normal; 5-9 mild; 10-14 moderate; 15-21 severe): 0 Source: Developed by Drs. Gino Young, Seble Chahal, Dennis Zendejas and colleagues, with an educational clara from [employer]. CHE-7 Assessment Billing CHE-7 Assessment Tool: CHE-7 Assessment 82374 Review of Systems Const Details: Denies chills, Denies fatigue, reports fever and chills (s) and Denies weakness HEENT Denies change in vision, Denies dizziness, + intermittent headache(s), Denies hearing loss, +nasal congestion, Denies sinus pain, Denies sinus pressure and + sore throat with coughing Card Denies chest pain, Denies lightheadedness, reports mild dyspnea with chest tightness and Denies other (palpitations) Resp + nonproductive cough and reports wheezing GI Denies abdominal pain, Denies melena, Denies hematochezia, Denies change in bowel habits, Denies dyspepsia and Denies nausea Denies hematuria and Denies dysuria Musc Denies abnormal gait, +body aches, Denies arthralgias, Denies numbness and Denies tingling Skin/Breast Denies rash, Denies unusual bruising and Denies wounds Neuro Denies abnormal gait, Denies dizziness, Denies headache(s), Denies memory loss, Denies numbness, Denies Sensory deficit (Neuro), Denies tingling and Denies weakness Psych Denies anxiety, Denies depression and Denies memory loss Endo Denies cold intolerance, Denies fatigue, Denies heat intolerance, Denies polydipsia and Denies polyuria Davie/Lymph Denies easy bleeding and Denies easy bruising Aller/Immun Denies wheezing Physical exam (Primary Care) Vital Signs: Last Vital Signs Temp 99.0 F 09/08/24 09:35 Pulse 102 H 09/08/24 09:35 BP 124/82 09/08/24 09:35 Pulse Ox 96 09/08/24 09:35 Oxygen Delivery Method Room Air 09/08/24 09:35 BMI result Body Mass Index 27.7 Tobacco/Smoking Status: Tobacco use Status Tobacco use date assessed 09/08/24 09/08/24 09:40 Patient Tobacco Use Status Former Tobacco user 09/08/24 09:40 Tobacco use type Cigarette 09/08/24 09:40 e-Cigarette/Vaping Use Never Used 09/08/24 09:40 PHQ-9: PHQ-9 Score PHQ-9: Total score 0 09/08/24 22:13 Depression Screening Interpretation: Negative Thrive Assessment: Date of Thrive Assessment Date Thrive assessed 09/08/24 09/08/24 09:40 Currently or been in a relationship where the following occur: No concerns reported Const Other: General: no acute distress, well developed, alert and awake Nutritional Appearance: well nourished Orientation/consciousness: patient oriented x3 HENMT Head: Yes normocephalic and Yes atraumatic Ears: hearing grossly normal bilaterally and bilateral ear canal inferior area erythematous/irritated, brownish dried up cerumen present in ear canal, TM's pearly angel, with positive cone of light General nose exam: Normal external nose present and nasal canal erythema with swollen and boggy turbinates other: Positive pain with palpation the tragus bilaterally, bilateral maxillary sinus tender to palpation Mouth: Normal oral and palatal mucosa present and moist mucous membranes Eyes Pupils: Equal, round and reactive pupils present and Pupil accommodation reflex normal EOM: EOMs intact bilaterally Neck Neck: Yes normal visual inspection, Yes no lymphadenopathy and Yes trachea midline Thyroid: Thyroid normal Carotids: no bruits Lymphatic: no lymphadenopathy noted Chest Chest palpation & inspection: normal inspection of the chest Resp Effort & Inspection: normal respiratory effort Auscultation: lungs sound clear to auscultation Cardio Rate: regular rate Rhythm: regular rhythm Heart sounds: S1 normal heart sound present, S2 normal heart sound present, no gallops, no murmurs and no rubs GI Palpation (GI): Abdomen is soft and nontender Auscultation: normal bowel sounds General: Yes no CVA tenderness Back/Spine/Pelvis Back: no CVA tenderness Cervical Spine: cervical ROM normal and No Cervical spine tenderness Thoracic/Lumbar Spine: No lumbar tenderness Skin General: warm and dry. Normal skin color. Normal skin turgor Lesions: no lesions Nails: normal Neuro General: patient oriented x3, gait normal Cranial nerves: Yes Equal, round and reactive pupils present Cognition (Neuro): normal cognition Gait exam (Neuro): Normal gait present Extrem General: Yes normal to inspection, No edema and No calf tenderness Psych Appearance: grossly normal Affect: normal affect Attitude: cooperative Thought process: Normal thought process present Coding Level of Care Code Est Pt Level 3 (37247) Diagnoses COVID U07.1 Upper respiratory tract infection, unspecified type J06.9 URI type: unspecified URI Nasal congestion R09.81 Acute otitis externa of both ears, unspecified type H60.503 Chronicity: acute Laterality: bilateral Otitis externa type: unspecified type Additional Codes CHE-7 Assessment Billing - CHE-7 Assessment Tool: CHE-7 Assessment 82569 ([id number]) PHQ-9 - 75930 - PHQ-9 Billing: Yes ([id number]) Time Spent (min) 26 Assessment & Plan Assessment & Plan (1) COVID: Code(s): U07.1 - COVID-19 Category: Medical Plan: Patient was sent for respiratory panel tests which showed a positive COVID The patient was called and informed about this and encouraged to take all the necessary precautions in preventing the spread Continue supportive treatments (2) Upper respiratory infection: Comment: Will obtain URI swab in office. Patient should drink plenty of fluids. Patient has been cautioned against using [id number] medication due to chronic kidney disease. Code(s): J06.9 - Acute upper respiratory infection, unspecified Category: Medical Qualifiers: URI type: unspecified URI Qualified Code(s): J06.9 - Acute upper respiratory infection, unspecified Plan: Respiratory panel ordered (3) Nasal congestion: Code(s): R09.81 - Nasal congestion Category: Medical Plan: Fluticasone propionate 50 mcg actuation 2 sprays intranasally b.i.d. (4) Otitis externa: Code(s): H60.90 - Unspecified otitis externa, unspecified ear Category: Medical Qualifiers: Chronicity: acute Laterality: bilateral Otitis externa type: unspecified type Qualified Code(s): H60.503 - Unspecified acute noninfective otitis externa, bilateral Plan: Ofloxacin 0.3% ear drops ordered Plan Follow-up as scheduled in November 2024 Orders: Orders SARS-CoV2/FLU/RSV 09/08/24 J06.9 - Acute upper respiratory infection, unspecified Medications: New fluticasone propionate 50 mcg/actuation (Flonase Allergy Relief) administer into each nostril 2 sprays intranasal BID 16 grams 0RF ofloxacin 0.3% 10 drps otic (ears) DAILY 10 mL 0RF 7 days Refilled loratadine 10 mg PO DAILY 14 tabs 0RF 14 days H92.09 - Otalgia, unspecified ear
== END 2024-09-08 10:01 | disposition home or self-care (01) ==
PROVIDERS: PCP Physician Assistant
DX: U07.1 COVID-19 (principal); J06.9 Acute upper respiratory infection, unspecified; R09.81 Nasal congestion; H60.503 Unspecified acute noninfective otitis externa, bilateral

== ENCOUNTER 2024-09-13 08:17 | Outpatient (REF) | payer OTHER, MEDICAID, SELFPAY ==
[2024-09-13 09:46] LABS: MANUAL DIFF FLAG NO
[2024-09-13 10:22] LABS: Influenza A PCR NEGATIVE (Negative); Influenza B PCR NEGATIVE (Negative); Resp Syncy Virus RNA Qual PCR NEGATIVE (Negative); SARS COV2 PCR INHOUSE POSITIVE (Negative)
[2024-09-13 10:51] LABS: Basophils Percent Auto 0.7 % (0-2); Eosinophils Absolute Auto 0.2 X10*3/uL (0.0-0.4); Eosinophils Percent Auto 3.4 % (0-4); Hematocrit 33.7 % (37.0-47.0); Hemoglobin 10.5 g/dl (12.0-16.0); Imm Gran Abs Auto 0.03 X10*3/uL (0.00-0.03); Imm Gran Pct Auto 0.5 % (0.0-0.4); Lymphocytes Absolute Auto 1.4 X10*3/uL (1.2-4.9); Lymphocytes Percent Auto 22.3 % (20-40); Mean Corpuscular HGB Conc 31.2 g/dl (31.0-35.0); Mean Corpuscular Hemoglobin 29.5 pg (27.0-33.0); Mean Corpuscular Volume 94.7 fL (80.0-98.0); Mean Platelet Volume 10.6 fL (9.4-12.3); Monocytes Absolute Auto 0.3 X10*3/uL (0.1-1.2); Monocytes Percent Auto 5.2 % (2-11); Neutrophils Absolute Auto 4.2 x10*3/uL (2.0-8.3); Neutrophils Percent Auto 67.9 % (45-73); Platelet Count 296 X10*3/uL (160-400); Red Blood Count 3.56 X10*6/uL (4.20-5.50); Red Cell Distribution Width 12.8 % (11.0-16.0); White Blood Count 6.1 X10*3/uL (4.8-10.8)
[2024-09-13 11:24] LABS: Appearance Urine Clear; Color Urine Yellow; Glucose Urine UA 100 mg/dL (Negative); Leukocyte Esterase Urine Trace (Negative); Nitrite Urine Negative (Negative); UMIC TRIGGER UA YES; Urine Blood Small (1+) (Negative); Urine Ketones Negative (Negative); Urine Protein >=1000 (4+) mg/dL (Neg-Trace)
[2024-09-13 11:31] LABS: Bacteria Urine 1+ (None Seen); WBC Urine 21-50 /HPF (0-5)
[2024-09-13 11:33] LABS: Erythrocyte Sedimentation Rate 79 MM/HR (0-20)
[2024-09-13 11:49] LABS: Alkaline Phosphatase 55 U/L (39-117); Anion Gap 11 (12-20); Aspartate Amino Transferase 35 U/L (5-31); Bilirubin Total 0.4 mg/dL (0.0-1.0); Blood Urea Nitrogen 50 mg/dL (9-16); C Reactive Protein 1.04 mg/dL (< or = 0.50); Carbon Dioxide 18 mmol/L (22-29); Chloride 117 mmol/L (96-108); Estimated Glomerular Filt Rate 14; Glucose Random 99 mg/dL (60-115); Potassium 4.3 mmol/L (3.3-5.1); Sodium 142 mmol/L (135-145); Total Protein 8.2 g/dL (6.5-8.0)
[2024-09-13 11:49] LABS: Creatinine Urine 129.36 mg/dL
[2024-09-13 12:08] LABS: Alanine Aminotransferase 26 U/L (0-31)
[2024-09-13 12:21] LABS: Protein/Creatinine Ratio, Ur 4.34 (<0.2); Total Protein Urine Random 562 mg/dL (<12)
[2024-09-15 10:18] LABS: Complement C3 121 mg/dL (83-193)
[2024-09-15 15:49] LABS: Anti DNA DS Antibody 2 IU/mL
== END 2024-09-13 08:18 | disposition home or self-care (01) ==
LOC: HO.LAB 08:17
PROVIDERS: Student in an Organized Health Care Education/Training Program; PCP Physician Assistant; Referring Provider Physician Assistant; Visit Provider Internal Medicine Hypertension Specialist
DX: M32.14 Glomerular disease in systemic lupus erythematosus (principal); R09.89 Other specified symptoms and signs involving the circulatory and respiratory systems
CPT/HCPCS: 0241U; 36415; 80053; 81001; 82570; 84156; 85025; 85652; 86140; 86160; 86225

== ENCOUNTER 2024-09-24 15:26 | Outpatient (AMB) | payer OTHER, MEDICAID, SELFPAY ==
--- OUTSIDE RECORDS SUMMARY | 2024-09-24 15:28 | XMS_ITS | Referral Summary ---
Author Organization [facility] Address [address] [place] [address] Care Team Providers Care Backhaul Driver Name Role Phone Franklin Sanchez Primary Care Provider [phone] Allergies Active Allergy Reactions Criticality Noted Date [...] Not on file Procedures * Due to [place] [employer] law, this organization might not be sharing [...] to Health Maintenance Results * Due to [place] [employer] law, this organization might not be sharing negative HIV tests. * (ABNORMAL) Microalbumin, Random Urine with Creatinine (08/07/2023 9:01 AM EST) Creatinine, Random Urine 92 20 - 275 mg/dL 08/08/2023 6:45 PM EST [facility] Microalbumin 150.8 mg/dL 08/08/2023 6:45 PM EST [facility] Comment: Verified by repeat analysis. Reference Range Not established Microalbumin/Crea tinine Ratio, Random Urine 1,639(H) <30 mcg/mg creat 08/08/2023 6:45 PM EST [facility] Comment: The ADA defines abnormalities in albumin [...] ORDERABLES Final Resul t [facility] [address] [facility] 3rd Floor, [place] [address], [facility] [address] [place] [address] * (ABNORMAL) Vitamin D, 25-Hydroxy, Total, Immunoassay (06/05/2023 11:53 AM EDT) Calcidiol+ercalc idiol 22(L) 30 - 100 ng/mL 06/05/2023 9:28 PM EDT [facility] Comment: Vitamin D Status ? 25-OH Vitamin D: Deficiency: ?<20 ng/mL Insufficiency: ? 20 - 29 ng/mL Optimal: ? > or = 30 ng/mL For 25-OH Vitamin D testing on patients on D2-supplementation and patients for whom quantitation of D2 and D3 fractions is required, the QuestAssureD() 25-OH VIT D, (D2,D3), LC/MS/MS is recommended: order code [id number] (patients >2yrs). See Note 1 Note 1 For additional information, please refer to http://education.PayPay/faq/EIK956 (This link is being provided for informational/ educational purposes only.) Blood Structure of peripheral vein / Unknown 06/05/2023 11:53 AM EDT 06/05/2023 7:56 PM EDT N[facility]ative [facility] - 06/09/2023 5:04 AM EDT FASTING:NO us Anupama Bynum DO LAB BLOOD ORDERABLES Final Resul t [facility] [address] [facility] 3rd Floor, [place] [address], [facility] [address] [place] [address] * (ABNORMAL) CBC (06/05/2023 11:53 AM EDT) White Blood Cell Count 5.9 3.8 - 10.8 Thousand/ uL 06/05/2023 10:37 PM EDT [facility] Red Blood Cell Count 3.82 3.80 - 5.10 Million/u L 06/05/2023 10:37 PM EDT [facility] Hemoglobin 11.4(L) 11.7 - 15.5 g/dL 06/05/2023 10:37 PM EDT [facility] Hematocrit 34.4(L) 35.0 - 45.0 % 06/05/2023 10:37 PM EDT [facility] MCV 90.1 80.0 - 100.0 fL 06/05/2023 10:37 PM EDT [facility] MCH 29.8 27.0 - 33.0 pg 06/05/2023 10:37 PM EDT [facility] MCHC 33.1 32.0 - 36.0 g/dL 06/05/2023 10:37 PM EDT [facility] RDW 12.6 11.0 - 15.0 % 06/05/2023 10:37 PM EDT [facility] Platelet Count 310 140 - 400 Thousand/ uL 06/05/2023 10:37 PM EDT [facility] MPV 11.4 7.5 - 12.5 fL 06/05/2023 10:37 PM EDT [facility] Blood Structure of peripheral vein / Unknown 06/05/2023 11:53 AM EDT 06/05/2023 7:48 PM EDT N[facility]ative [facility] - 06/09/2023 5:04 AM EDT FASTING:NO Anupamanahun Bynum DO LAB BLOOD ORDERABLES Final Resul t [facility] [address] [facility] [address]rd Floor, [place] [address], [facility] [address] [place] [address] * (ABNORMAL) PTH, Intact (without Calcium) (06/05/2023 11:53 AM EDT) Parathyroid Hormone, Intact 205(H) 16 - 77 pg/mL 06/06/2023 1:16 AM EDT [facility] Comment: Interpretive Guide ?Intact PTH ? Calcium [...] ORDERABLES Final Resul t [facility] [address] [facility] [address] Floor, [place] [address], [facility] [address] [place] [address] * (ABNORMAL) Renal Function Panel (06/05/2023 11:53 AM EDT) [facility] Glucose 89 65 - 139 mg/dL 06/05/2023 10:49 PM EDT [facility] Comment: ? Non-fasting reference interval BUN 39(H) 7 - 25 mg/dL 06/05/2023 10:49 PM EDT [facility] Creatinine 2.61(H) 0.50 - 1.03 mg/dL 06/05/2023 10:49 PM EDT [facility] eGFR 21(L) > OR = 60 mL/min/1. 73m2 06/05/2023 10:49 PM EDT [facility] Bun/Creatinine Ratio 15 6 - 22 (calc) 06/05/2023 10:49 PM EDT [facility] Sodium 137 135 - 146 mmol/L 06/05/2023 10:49 PM EDT [facility] Potassium 4.6 3.5 - 5.3 mmol/L 06/05/2023 10:49 PM EDT [facility] Chloride 111(H) 98 - 110 mmol/L 06/05/2023 10:49 PM EDT [facility] Carbon Dioxide 18(L) 20 - 32 mmol/L 06/05/2023 10:49 PM EDT [facility] Calcium 9.8 8.6 - 10.4 mg/dL 06/05/2023 10:49 PM [employer] [facility] Phosphate 3.5 2.5 - 4.5 mg/dL 06/05/2023 10:49 PM EDT [facility] Albumin 4.0 3.6 - 5.1 g/dL 06/05/2023 10:49 PM EDT [facility] Blood Structure of peripheral vein / Unknown 06/05/2023 11:53 AM EDT 06/05/2023 7:56 PM EDT N[facility]ative [facility] - 06/09/2023 5:04 AM EDT FASTING:NO us Anupama Bynum DO LAB BLOOD ORDERABLES Final Resul t [facility] [address] [facility] 3rd [address], [place] [address], [place] [phone] [facility] [address] [place] [address] from Last 3 Months or Most Recently Relevant to Health Maintenance Insurance * Guarantor: Aneta Gan Account Type Relation to Patient Date of Phone Billing Address Personal/Family Self 1965 [phone] (Work) [address] [place] [address] [facility] Member Subscriber Plan / Payer (Ef fective 2018-Present) Name:Aneta Gan Relation to Subscriber:Self Name:Aneta Gan Payer ID:[id number] Type:HMO Address: [facility], [address] Care Teams Backhaul Driver Relationship Specialty Start Date End Date Franklin Sanchez PA [address] [place] [phone] PCP - General 06/05/23
--- OUTSIDE RECORDS SUMMARY | 2024-09-24 15:28 | XMS_ITS | Clinical Summary ---
Author Organization [facility] Address [address] [place] [address] Phone Care Team Providers Care Clinic Receptionist Name Role Phone Unavailable Primary Care Provider [...] 03/02/2016 Active ergocalciferol (VITAMIN D-2) 1.25 MG (70272 UT) capsule Take 1 capsule by mouth [...] Sigmoidoscopy 2014 Influenza Vaccine (#1) [address] [place] [address] HEALTH MEDICAID [place] [facility] [place]ALTH [place]
--- OUTSIDE RECORDS SUMMARY | 2024-09-24 15:28 | XMS_ITS | Clinical Summary ---
Author Organization [facility] Address [address] [place] [address] Care Team Providers Care Program Arranger Name Role Phone Franklin Sanchez Primary Care [...] age to complete this topic Care Teams Program Arranger Relationship Specialty Start Date End Date Franklin Sanchez PA [address] [facility] [place] [phone] PCP - General Adult Health - PA/APNP/ROLLWAY WORKER/COIL WRAPPER 07/20/21
--- OUTSIDE RECORDS SUMMARY | 2024-09-24 15:28 | XMS_ITS | Clinical Summary ---
Author Organization [facility] Address [address] [place] [address] Care Team Providers Care Psychodramatist Name Role Phone Franklin Sanchez Primary Care Provider [phone] Allergies Active Allergy Reactions Criticality Noted Date [...] 2005 Zoster Vaccines (1 of 2) 2015 Pneumococcal Vaccine: 50+ Years (2 of 2 - PCV) 11/09/2019 11/08/2018, 12/18/2007 DTaP,Tdap,and Td Vaccines (2 - Td or [...] Vaccine: Pediatric (0-5 Years) and At-Risk Patients (6-50 Years) Aged Out 11/08/2018, 12/18/2007 No longer eligibl e based on patient's age to complete this topic CKD: Referral to Nephrology Completed 08/07/2023 Procedures * Due to [place] [employer] [place] [employer] law, this organization might not be sharing [...] to Health Maintenance Results * Due to [place] [employer] law, this organization might not be sharing negative HIV tests. * (ABNORMAL) Microalbumin, Random Urine with Creatinine (08/07/2023 9:01 AM EST) Creatinine, Random Urine 92 20 - 275 mg/dL 08/08/2023 6:45 PM EST [facility] Microalbumin 150.8 mg/dL 08/08/2023 6:45 PM EST [facility] Comment: Verified by repeat analysis. Reference Range Not established Microalbumin/Crea tinine Ratio, Random Urine 1,639(H) <30 mcg/mg creat 08/08/2023 6:45 PM EST [facility] Comment: The ADA defines abnormalities in albumin [...] ORDERABLES Final Resul t [facility] [address] [facility] 3rd [address], [place] [address], [place] [phone] [facility] [address] [place] [address] * (ABNORMAL) Vitamin D, 25-Hydroxy, Total, Immunoassay (06/05/2023 11:53 AM EDT) Calcidiol+ercalc idiol 22(L) 30 - 100 ng/mL 06/05/2023 9:28 PM EDT [facility] Comment: Vitamin D Status ? 25-OH Vitamin D: Deficiency: ?<20 ng/mL Insufficiency: ? 20 - 29 ng/mL Optimal: ? > or = 30 ng/mL For 25-OH Vitamin D testing on patients on D2-supplementation and patients for whom quantitation of D2 and D3 fractions is required, the QuestAssureD() 25-OH VIT D, (D2,D3), LC/MS/MS is recommended: order code [id number] (patients >2yrs). See Note 1 Note 1 For additional information, please refer to http://education.[employer]/faq/VGQ592 (This link is being provided for informational/ educational purposes only.) Blood Structure of peripheral vein / Unknown 06/05/2023 11:53 AM EDT 06/05/2023 7:56 PM EDT Narrative [facility] - 06/09/2023 5:04 AM EDT FASTING:NO us Anupama Bynum DO LAB BLOOD ORDERABLES Final Resul t [facility] [address] [facility] [address], [place] [address], [facility] [address] [place] [address] * (ABNORMAL) CBC (06/05/2023 11:53 AM EDT) White Blood Cell Count 5.9 3.8 - 10.8 Thousand/ uL 06/05/2023 10:37 PM EDT [facility] Red Blood Cell Count 3.82 3.80 - 5.10 Million/u L 06/05/2023 10:37 PM EDT [facility] Hemoglobin 11.4(L) 11.7 - 15.5 g/dL 06/05/2023 10:37 PM EDT [facility] Hematocrit 34.4(L) 35.0 - 45.0 % 06/05/2023 10:37 PM EDT [facility] MCV 90.1 80.0 - 100.0 fL 06/05/2023 10:37 PM EDT [facility] MCH 29.8 27.0 - 33.0 pg 06/05/2023 10:37 PM EDT [facility] MCHC 33.1 32.0 - 36.0 g/dL 06/05/2023 10:37 PM EDT [facility] RDW 12.6 11.0 - 15.0 % 06/05/2023 10:37 PM EDT [employer] [facility] Platelet Count 310 140 - 400 Thousand/ uL 06/05/2023 10:37 PM EDT [facility] MPV 11.4 7.5 - 12.5 fL 06/05/2023 10:37 PM EDT [facility] Blood Structure of peripheral vein / Unknown 06/05/2023 11:53 AM EDT 06/05/2023 7:48 PM EDT Narrative [facility] - 06/09/2023 5:04 AM EDT FASTING:NO us Anupama Bynum DO LAB BLOOD ORDERABLES Final Resul t [facility] [address] [facility] [address], [place] [address], [employer] [facility] [address] [place] [address] * (ABNORMAL) PTH, Intact (without Calcium) (06/05/2023 11:53 AM EDT) Parathyroid Hormone, Intact 205(H) 16 - 77 pg/mL 06/06/2023 1:16 AM EDT [facility] Comment: Interpretive Guide ?Intact PTH ? Calcium [...] ORDERABLES Final Resul t [facility] [address] [facility] [address], [place] [address], [address] [facility] [address] [place] [address] * (ABNORMAL) Renal Function Panel (06/05/2023 11:53 AM EDT) [facility] Glucose 89 65 - 139 mg/dL 06/05/2023 10:[address] [facility] Comment: ? Non-fasting reference interval BUN 39(H) 7 - 25 mg/dL 06/05/2023 10:49 PM [facility] Creatinine 2.61(H) 0.50 - 1.03 mg/dL 06/05/2023 10:49 PM EDT [facility] eGFR 21(L) > OR = 60 mL/min/1. 73m2 06/05/2023 10:49 PM EDT [facility] Bun/Creatinine Ratio 15 6 - 22 (calc) 06/05/2023 10:49 PM EDT [facility] Sodium 137 135 - 146 mmol/L 06/05/2023 10:49 PM EDT [facility] Potassium 4.6 3.5 - 5.3 mmol/L 06/05/2023 10:49 PM [facility] Chloride 111(H) 98 - 110 mmol/L 06/05/2023 10:49 PM EDT [facility] Carbon Dioxide 18(L) 20 - 32 mmol/L 06/05/2023 10:49 PM EDT [facility] Calcium 9.8 8.6 - 10.4 mg/dL 06/05/2023 10:49 PM [facility] Phosphate 3.5 2.5 - 4.5 mg/dL 06/05/2023 10:49 PM [facility] Albumin 4.0 3.6 - 5.1 g/dL 06/05/2023 10:49 PM EDT [facility] Blood Structure of peripheral vein / Unknown 06/05/2023 11:53 AM EDT 06/05/2023 7:56 PM EDT Narrative [facility] - 06/09/2023 5:04 AM EDT FASTING:NO us Anupama Bynum DO LAB BLOOD ORDERABLES Final Resul t [facility] [address] [facility] [address], [place] [address], [place] [phone] [facility] [employer] [address] [place] [address] from Last 3 Months or Most Recently Relevant to Health Maintenance Insurance * Guarantor: Aneta Gan Account Type Relation to Patient Date of Phone Billing Address Personal/Family Self 1965 [phone] (Work) [address] [place] [phone] [facility] Member Subscriber Plan / Payer (Ef fective 2018-Present) Name:Aneta Gan Relation to Subscriber:Self Name:Aneta Gan Payer ID:[id number] Type:HMO Address: [address] Care Teams Psychodramatist Relationship Specialty Start Date End Date Franklin Sanchez PA [address] [place] [address] PCP - General 06/05/23
--- OUTSIDE RECORDS SUMMARY | 2024-09-24 15:28 | XMS_ITS | Encounter Summary ---
Author Organization [facility] Address [address] [place] [address] Phone Care Team Providers Care Information Assurance Officer Name Role Phone Unavailable Primary Care Provider Unavailabl e Encounter Details Date Type Department Care Team (Late st Contact Info) Description 08/10/2022 Telephone [facility] [address] [place] [address] Roe Morrissey MD Social History [...] Iris Gee - 08/10/2022 10:19 AM EST [facility] insurance verification called, pt will need a PA for her truxima infusion that is scheduled for tomorrow. [facility]. documented in this encounter Plan of Treatment [...] EDT) Calcium 9.1 8.4 - 10.2 mg/dL [facility] 11/06/2022 4:20 PM EDT 11/06/2022 4:20 PM EDT Roe Morrissey MD LAB BLOOD ORDERABLES Final Res ult Performing Organization Address [facility] Co de Phone Number [place] * (ABNORMAL) Creatinine (11/06/2022 4:20 PM EDT) Creatinine Serum 2.59(H) 0.5 - 1.4 mg/dL [facility] eGFR [facility] Comment: NOTE: ??For -Cro[place] individuals, multiply the result ? by 1.210. Chronic Kidney Disease: ??Estimated GFR < 60 mL/min/1.73m2 Severe Kidney Disease: ??Estimated GFR < 15 mL/min/1.73m2 11/06/2022 4:20 PM EDT 11/06/2022 4:20 PM EDT Roe Morrissey MD LAB BLOOD ORDERABLES Final Res ult Performing Organization Address [facility] Co de Phone Number [place] * (ABNORMAL) BUN (11/06/2022 4:20 PM EDT) BUN 44(H) 9 - 16 mg/dL [place] 11/06/2022 4:20 PM EDT 11/06/2022 4:20 PM EDT Roe Morrissey MD LAB BLOOD ORDERABLES Final Res ult Performing Organization Address [facility] Co de Phone Number [place] * (ABNORMAL) [...]
--- NOTE | 2024-09-24 15:43 | MHC.OFFVISCO ---
Intake Intake Visit Reasons: Anticoagulation Allergies rituximab [From Rituxan] Allergy (Severe, Verified 09/24/24 15:26) Anaphylaxis cephalexin [From Keflex] Allergy (Unknown, Verified 09/24/24 15:26) RED+ITCHY,RASH Cephalosporins [CEPHALOSPORINS] Allergy (Unknown, Verified 09/24/24 15:26) RED+ITCHY Sulfa (Sulfonamide Antibiotics) [SULFA(SULFONAMIDE ANTIBIOTICS)] Allergy (Unknown, Verified 09/24/24 15:26) RED+ITCHY mycophenolate mofetil [From CellCept] Adverse Reaction (Intermediate, Verified 09/24/24 15:26) rash cellcept Allergy (Severe, Uncoded 09/08/24 09:42) Hives retuxin Adverse Reaction (Severe, Uncoded 09/08/24 09:42) Abdominal Pain Medication List - Last Reconciled 09/24/24 by Stephanie Tran RN [4Life transfer factor PO BID] atorvastatin 20 mg PO BEDTIME 30 days calcitriol 0.25 mcg PO DAILY clobetasol 0.05% 1 appl topical DAILY erythromycin 1 appl ophthalmic (eye) DAILY 15 days fluocinonide 0.05% appl topical fluticasone propionate 50 mcg/actuation (Flonase Allergy Relief) 2 sprays intranasal BID gabapentin 200 mg (2 x 100 mg) PO DAILY 30 days [KBU PO BID] levothyroxine 100 mcg PO DAILY lisinopril 2.5 mg PO DAILY loratadine 10 mg PO DAILY 14 days magnesium oxide 250 mg PO BID ofloxacin 0.3% 10 drps otic (ears) DAILY 7 days prednisone Starting October 04, take 3 tabs daily for 1 month then remain on 2 tabs daily [Renuvo PO BID] sodium bicarbonate 650 mg PO BID [Super Detox PO] warfarin 5 mg See Protocol PO DAILY Nursing Note PT.HAS BEEN ILL WITH FLU-LIKE SX FOR APPROX. 1 WEEK. SHE HAS BEEN TAKING TYLENOL 3-4X DAILY ALL WEEK AND PO INTAKE HAS BEEN POOR. SHE HAS ALSO BEEN TAKING ROBITUSSIN,ETC. PT.DENIES ANY CP,SOB OR SX OF BLEEDING. HOLD WARFARIN TOMORROW(TOOK 5MGM ALREADY TODAY)AND FOLLOW-UP HERE ON 09/26/24. WILL BE SURE TO HAVE D[place] TODAY. INR AND PLAN OF CARE REPORTED TO PCP VIA MESSAGING Anti-Coag Initial Assessment Social Hx Patient Tobacco Use Status: Former Tobacco user Tobacco use type: Cigarette alcohol intake: former Alcohol intake frequency: does not drink Coding Level of Care Code Est Patient Level 1 Diagnoses Current use of anticoagulant therapy Z79.01 Results AMB INR Fingerstick AMB INR Fingerstick 5.7 Last Edit by Stephanie Tran RN on 09/24/24 15:39 Assessment & Plan Assessment & Plan (1) Current use of anticoagulant therapy: Code(s): Z79.01 - snf (current) use of anticoagulants Category: Medical
[2024-09-24 15:59] LABS: Prothrombin Time Whole Bld POC 68.8 sec (11.1-13.5); ~PT, ~INR - Anti Coag Clinic 5.7 (0.9-1.1)
== END 2024-09-24 16:05 | disposition home or self-care (01) ==
LOC: HO.ACS 15:26
PROVIDERS: PCP Physician Assistant; Visit Provider Internal Medicine
DX: Z79.01 Long term (current) use of anticoagulants (principal)

== ENCOUNTER → 2024-09-24 15:26 | Outpatient (BNVA) | payer OTHER, MEDICAID, SELFPAY | PROVIDERS: PCP Physician Assistant; Visit Provider Internal Medicine | DX: I26.99 Other pulmonary embolism without acute cor pulmonale (principal) | CPT/HCPCS: 85610; 99211 ==

== ENCOUNTER 2024-09-25 14:59 | Outpatient (AMB) | payer OTHER, MEDICAID, SELFPAY ==
[2024-09-25 15:06] VITALS: BP 120/72; PULSE 81; O2SAT 98; BMI 27.3
--- NOTE | 2024-09-25 15:06 | HO.NEPHOV ---
Vital Signs 09/25/24 15:06 Height 5 ft Weight 140 lb BMI 27.3 BP 120/72 Blood Pressure Location Rt brachial Position Sitting Pulse 81 Pulse Source Pulse Oximeter Pulse Oximetry (%) 98 Oxygen Delivery Method Room Air Intake Visit Reasons: CKD/ LVM Hospital Medical Biller Required: No Accompanied by: Self / Same As Patient Allergies rituximab [From Rituxan] Allergy (Severe, Verified 09/25/24 15:08) Anaphylaxis cephalexin [From Keflex] Allergy (Unknown, Verified 09/25/24 15:08) RED+ITCHY,RASH Cephalosporins [CEPHALOSPORINS] Allergy (Unknown, Verified 09/25/24 15:08) RED+ITCHY Sulfa (Sulfonamide Antibiotics) [SULFA(SULFONAMIDE ANTIBIOTICS)] Allergy (Unknown, Verified 09/25/24 15:08) RED+ITCHY mycophenolate mofetil [From CellCept] Adverse Reaction (Intermediate, Verified 09/25/24 15:08) rash cellcept Allergy (Severe, Uncoded 09/08/24 09:42) Hives retuxin Adverse Reaction (Severe, Uncoded 09/08/24 09:42) Abdominal Pain Medication List - Last Reconciled 09/25/24 by Roe Morrissey MD [4Life transfer factor PO BID] atorvastatin 20 mg PO BEDTIME 30 days calcitriol 0.25 mcg PO DAILY clobetasol 0.05% 1 appl topical DAILY erythromycin 1 appl ophthalmic (eye) DAILY 15 days fluocinonide 0.05% appl topical fluticasone propionate 50 mcg/actuation (Flonase Allergy Relief) 2 sprays intranasal BID gabapentin 200 mg (2 x 100 mg) PO DAILY 30 days [KBU PO BID] levothyroxine 100 mcg PO DAILY lisinopril 2.5 mg PO DAILY loratadine 10 mg PO DAILY 14 days magnesium oxide 250 mg PO BID ofloxacin 0.3% 10 drps otic (ears) DAILY 7 days prednisone Starting October 04, take 3 tabs daily for 1 month then remain on 2 tabs daily [Renuvo PO BID] sodium bicarbonate 650 mg PO BID warfarin 5 mg See Protocol PO DAILY HPI Comments Details: Dyazide 58-year-old man with history of SLE. She has chronic kidney disease. In 2001, she had a kidney biopsy which showed membranous nephropathy. She was treated with Cytoxan and prednisone and obtain remission. She would relapsed again and was treated with mycophenolate followed by active but she did not tolerate these medications and she refused treatment. She did receive a dose of Rituxan in early August 2022 and subsequently did not want further treatment due to perceived side effects. 12/10/23: Doing well today ;Waiting for Benlysta 03/25/24 Insurance did not cover Benlysta ; Now she is on Cellcept 06/17/24 Off Cellcept; on prednisone 2.5mg ; No new issues 09/25/24 Recently had COVID Feels tired [facility] Medical History Prediabetes SLE glomerulonephritis syndrome History of pulmonary embolism Vitamin D deficiency Hypertriglyceridemia Hypothyroidism Surgical History Hx of tubal ligation Family History Father Family history unknown Mother Hypertension Diabetes Deep vein thrombosis CVA (cerebral vascular accident) Brother CVA (cerebral vascular accident), Onset Age: 48 Brother CVA (cerebral vascular accident), Onset Age: 38 Social History Household Members: None Housing: House Alcohol intake: former Patient Tobacco Use Status: Former Tobacco user Tobacco use type: Cigarette e-Cigarette/Vaping Use: Never Used Second Hand Smoke Exposure: Yes service: No Current occupational status: employed 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 Cognitive needs: No Hearing needs: No Vision needs: No Physical Exam Vital Signs: Last Vital Signs Pulse 81 09/25/24 15:06 BP 120/72 09/25/24 15:06 Pulse Ox 98 09/25/24 15:06 Oxygen Delivery Method Room Air 09/25/24 15:06 BMI result Body Mass Index 27.3 Const General: comfortable; No acute distress Orientation/consciousness: patient oriented x3 Eyes General: appearance normal, both eyes and all related structures Visual Penaloza: normal visual penaloza by confrontation Neck Neck: Yes supple and Yes no JVD Resp Effort & Inspection: normal respiratory effort and respiratory effort not decreased Auscultation: rhonchi Cardio Palpation: no palpable S3 and no palpable S4 Heart sounds: no rubs GI Inspection: Yes normal to inspection Palpation (GI): Soft to palpation Percussion: Yes normal to percussion Auscultation: normal bowel sounds General: Yes no CVA tenderness Back/Spine/Pelvis Back: no CVA tenderness Skin General skin exam: no petechiae and no purpura Neuro General: patient oriented x3 and no focal motor deficits Extrem General: No clubbing and No edema Results Reviewed Nephrology Results: Hgb 10.5 g/dl (12.0-16.0) L 09/13/24 WBC 6.1 X10*3/uL (4.8-10.8) 09/13/24 Plt Count 296 X10*3/uL (160-400) 09/13/24 Sodium 142 mmol/L (135-145) 09/13/24 Potassium 4.3 mmol/L (3.3-5.1) 09/13/24 Chloride 117 mmol/L (96-108) H 09/13/24 Carbon Dioxide 18 mmol/L (22-29) L 09/13/24 BUN 50 mg/dL (9-16) H 09/13/24 Creatinine 3.37 mg/dL (0.5-1.4) H 09/13/24 Calcium 10.0 mg/dL (8.4-10.2) 09/13/24 Urine Protein >=1000 (4+) mg/dL (Neg-Trace) H 09/13/24 Urine Creatinine 129.36 mg/dL 09/13/24 Protein/Creatinin Ratio 4.34 (<0.2) H 09/13/24 Assessment & Plan Assessment & Plan (1) CKD (chronic kidney disease) stage 4, GFR 15-29 ml/min: Code(s): N18.4 - Chronic kidney disease, stage 4 (severe) Category: Medical Plan: Due to underlying lupus nephropathy. Advanced CKD No signs or symptoms of uremia. No absolute indication to start her on renal replacement therapy yet. 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 Mild anemia in the setting of lupus and CKD. No indication for Epogen yet. We will screen for secondary hyperparathyroidism. Maintain blood pressure less than 130/80. Continue to avoid nephrotoxic agents including NSAIDs. Hypercalcemia - Decreased Calcitriol CA BACK TO NORMAL Watch PTH Decrease Calcium supplementation from 600mg BID to QD Advanced CKD approaching ESRD Will refer for renal transplant evaluation (2) Lupus (systemic lupus erythematosus): Comment: onset 4392-5895 Treated with Cytoxan and prednisone Coumadin throughout Cyclosporin 2006 DC due to epigastric pain CellCept 2008 up titrated to 3 g daily, developed worsening proteinuria Rituximab 2 doses, 2 weeks apart 2011 Believes that she took hydroxychloroquine and discontinued it due to tinnitus ?! Benlysta 02/2012 was helpful especially for skin lesions. Discontinued due to loss of insurance Acthar gel 2016 took it for about a year inconsistently Repeat kidney biopsy 04/2022 showed class 3 and 5 nephritis. Received 1 dose of rituximab 08/2022 with some improvement Benlysta 12/2023. DC 02/2024. Could not afford co-pay CellCept tried again 02/2024. DC'd after 1 dose due to rash Code(s): M32.9 - Systemic lupus erythematosus, unspecified Category: Medical Qualifiers: Systemic lupus erythematosus type: other Systemic lupus erythematosus organ involvement: glomerular disease Qualified Code(s): M32.14 - Glomerular disease in systemic lupus erythematosus (3) SLE glomerulonephritis syndrome: Comment: onset 5969-0869 class 3 and class 5 nephritis, low C3, low C4 Repeat kidney biopsy 04/2022 showed class 3 and 5 nephritis. Received 1 dose of rituximab 08/2022 with some improvement Code(s): M32.14 - Glomerular disease in systemic lupus erythematosus Category: Medical Plan: Unable to tolerate Cyclosporin/CEllcept/Rituxan Plan . Orders: Orders Basic Metabolic Panel 4 Weeks N18.4 - Chronic kidney disease, stage 4 (severe) Coding Level of Care Code Est Pt Level 4 (44780) Diagnoses CKD (chronic kidney disease) stage 4, GFR 15-29 ml/min N18.4 Other systemic lupus erythematosus with glomerular disease M32.14 Systemic lupus erythematosus type: other Systemic lupus erythematosus organ involvement: glomerular disease SLE glomerulonephritis syndrome M32.14
--- OUTSIDE RECORDS SUMMARY | 2024-09-25 16:07 | XMS_ITS | Referral Summary ---
Author Organization [facility] Address [address] [place] [address] Care Team Providers Care Filing Or Registry Clerk Name Role Phone Franklin Sanchez Primary Care Provider [phone] Allergies Active Allergy Reactions Criticality Noted Date [...] Not on file Procedures * Due to [place] orderTalk law, this organization might not be sharing [...] to Health Maintenance Results * Due to [place] orderTalk law, this organization might not be sharing negative HIV tests. * (ABNORMAL) Microalbumin, Random Urine with Creatinine (08/07/2023 9:01 AM EST) Creatinine, Random Urine 92 20 - 275 mg/dL 08/08/2023 6:45 PM EST [facility] Microalbumin 150.8 mg/dL 08/08/2023 6:45 PM EST [facility] Comment: Verified by repeat analysis. Reference Range Not established Microalbumin/Crea tinine Ratio, Random Urine 1,639(H) <30 mcg/mg creat 08/08/2023 6:45 PM EST [facility] Comment: The ADA defines abnormalities in albumin [...] ORDERABLES Final Resul t [facility] [address], [place] [address], [facility] [address] [place] [address] * (ABNORMAL) Vitamin D, 25-Hydroxy, Total, Immunoassay (06/05/2023 11:53 AM EDT) Calcidiol+ercalc idiol 22(L) 30 - 100 ng/mL 06/05/2023 9:28 PM EDT [facility] Comment: Vitamin D Status ? 25-OH Vitamin D: Deficiency: ?<20 ng/mL Insufficiency: ? 20 - 29 ng/mL Optimal: ? > or = 30 ng/mL For 25-OH Vitamin D testing on patients on D2-supplementation and patients for whom quantitation of D2 and D3 fractions is required, the QuestAssureD() 25-OH VIT D, (D2,D3), LC/MS/MS is recommended: order code 46367 (patients >2yrs). See Note 1 Note 1 For additional information, please refer to http://education.Demandware/faq/TSJ045 (This link is being provided for informational/ educational purposes only.) Blood Structure of peripheral vein / Unknown 06/05/2023 11:53 AM EDT 06/05/2023 7:56 PM EDT Narrative [facility] - 06/09/2023 5:04 AM EDT FASTING:NO us Anupama Bynum DO LAB BLOOD ORDERABLES Final Resul t [facility] [address], [place] [address], [facility] [address] [place] [address] * (ABNORMAL) CBC (06/05/2023 11:53 AM EDT) White Blood Cell Count 5.9 3.8 - 10.8 Thousand/ uL 06/05/2023 10:37 PM EDT [facility] Red Blood Cell Count 3.82 3.80 - 5.10 Million/u L 06/05/2023 10:37 PM EDT [facility] Hemoglobin 11.4(L) 11.7 - 15.5 g/dL 06/05/2023 10:37 PM EDT [facility] Hematocrit 34.4(L) 35.0 - 45.0 % 06/05/2023 10:37 PM EDT [facility] MCV 90.1 80.0 - 100.0 fL 06/05/2023 10:37 PM EDT [facility] MCH 29.8 27.0 - 33.0 pg 06/05/2023 10:37 PM EDT [facility] MCHC 33.1 32.0 - 36.0 g/dL 06/05/2023 10:37 PM EDT [facility] RDW 12.6 11.0 - 15.0 % 06/05/2023 10:37 PM EDT [facility] Platelet Count 310 140 - 400 Thousand/ uL 06/05/2023 10:37 PM EDT [facility] MPV 11.4 7.5 - 12.5 fL 06/05/2023 10:37 PM EDT [facility] Blood Structure of peripheral vein / Unknown 06/05/2023 11:53 AM EDT 06/05/2023 7:48 PM EDT Narrative [facility] - 06/09/2023 5:04 AM EDT FASTING:NO Anupamanahun Bynum DO LAB BLOOD ORDERABLES Final Resul t [facility] [address], [place] [address], [facility] [address] [place] [address] * (ABNORMAL) PTH, Intact (without Calcium) (06/05/2023 11:53 AM EDT) Parathyroid Hormone, Intact 205(H) 16 - 77 pg/mL 06/06/2023 1:16 AM EDT [facility] Comment: Interpretive Guide ?Intact PTH ? Calcium [...] ORDERABLES Final Resul t [facility] [address], [place] [address], [facility] [address] [place] [address] * (ABNORMAL) Renal Function Panel (06/05/2023 11:53 AM EDT) [facility] Glucose 89 65 - 139 mg/dL 06/05/2023 10:49 PM EDT [facility] Comment: ? Non-fasting reference interval BUN 39(H) 7 - 25 mg/dL 06/05/2023 10:49 PM EDT [facility] Creatinine 2.61(H) 0.50 - 1.03 mg/dL 06/05/2023 10:49 PM EDT [facility] eGFR 21(L) > OR = 60 mL/min/1. 73m2 06/05/2023 10:49 PM EDT [facility] Bun/Creatinine Ratio 15 6 - 22 (calc) 06/05/2023 10:49 PM EDT [facility] Sodium 137 135 - 146 mmol/L 06/05/2023 10:49 PM EDT [facility] Potassium 4.6 3.5 - 5.3 mmol/L 06/05/2023 10:49 PM EDT [facility] Chloride 111(H) 98 - 110 mmol/L 06/05/2023 10:49 PM EDT [facility] Carbon Dioxide 18(L) 20 - 32 mmol/L 06/05/2023 10:49 PM EDT [facility] Calcium 9.8 8.6 - 10.4 mg/dL 06/05/2023 10:49 PM [facility] Phosphate 3.5 2.5 - 4.5 mg/dL 06/05/2023 10:49 PM EDT [facility] Albumin 4.0 3.6 - 5.1 g/dL 06/05/2023 10:49 PM EDT [facility] Blood Structure of peripheral vein / Unknown 06/05/2023 11:53 AM EDT 06/05/2023 7:56 PM EDT Narrative [facility] - 06/09/2023 5:04 AM EDT FASTING:NO us Anupama Bynum DO LAB BLOOD ORDERABLES Final Resul t [facility] [address], [place] [address], [place] [phone] [facility] [address] [place] [address] from Last 3 Months or Most Recently Relevant to Health Maintenance Insurance * Guarantor: Aneta Gan Account Type Relation to Patient Date of Phone Billing Address Personal/Family Self 1965 [phone] (Work) [address] [place] [id number] [facility] Member Subscriber Plan / Payer (Ef fective 2018-Present) Name:Aneta Gan Relation to Subscriber:Self Name:Aneta Gan Payer ID:[id number] Type:HMO Address: [facility], [address] Care Teams Filing Or Registry Clerk Relationship Specialty Start Date End Date Franklin Sanchez PA [address] [place] [id number] PCP - General 06/05/23
--- OUTSIDE RECORDS SUMMARY | 2024-09-25 16:07 | XMS_ITS | Clinical Summary ---
Author Organization [facility] Address [address] [place] [address] Phone Care Team Providers Care Trimmer Machine Name Role Phone Unavailable Primary Care [...] 03/02/2016 Active ergocalciferol (VITAMIN D-2) 1.25 MG (44386 UT) capsule Take 1 capsule by mouth [...] Sigmoidoscopy 2014 Influenza Vaccine (#1) [address] [place] [address] [place] [address] [place] [facility] [place]
--- OUTSIDE RECORDS SUMMARY | 2024-09-25 16:07 | XMS_ITS | Encounter Summary ---
Author Organization [facility] Address [address] [place] [address] Phone Care Team Providers Care Pellet Press Operator Name Role Phone Unavailable Primary Care Provider Unavailabl e Encounter Details Date Type Department Care Team (Late st Contact Info) Description 08/10/2022 Telephone [facility] [address] [place] [address] Roe Morrissey MD Social History [...] Iris Gee - 08/10/2022 10:19 AM EST [facility] insurance verification called, pt will need a PA for her truxima infusion that is scheduled for tomorrow. [facility] documented in this encounter Plan of Treatment [...] EDT) Calcium 9.1 8.4 - 10.2 mg/dL [facility] 11/06/2022 4:20 PM EDT 11/06/2022 4:20 PM EDT Roe Morrissey MD LAB BLOOD ORDERABLES Final Res ult Performing Organization Address [facility] Co de Phone Number [place] * (ABNORMAL) Creatinine (11/06/2022 4:20 PM EDT) Creatinine Serum 2.59(H) 0.5 - 1.4 mg/dL [facility] Comment: NOTE: ??For -Albanian individuals, multiply the result ? by 1.210. Chronic Kidney Disease: ??Estimated GFR < 60 mL/min/1.73m2 Severe Kidney Disease: ??Estimated GFR < 15 mL/min/1.73m2 11/06/2022 4:20 PM EDT 11/06/2022 4:20 PM EDT Roe Morrissey MD LAB BLOOD ORDERABLES Final Res ult Performing Organization Address [facility] Co de Phone Number [place] * (ABNORMAL) BUN (11/06/2022 4:20 PM EDT) BUN 44(H) 9 - 16 mg/dL [place] 11/06/2022 4:20 PM EDT 11/06/2022 4:20 PM EDT Roe Morrissey MD LAB BLOOD ORDERABLES Final Res ult Performing Organization Address [facility] Co de Phone Number [place] * [...]
--- OUTSIDE RECORDS SUMMARY | 2024-09-25 16:07 | XMS_ITS | Clinical Summary ---
Author Organization [facility] Address [address] [place] [address] Care Team Providers Care Estate Conservator Name Role Phone Franklin Sanchez Primary Care [...] age to complete this topic Care Teams Estate Conservator Relationship Specialty Start Date End Date Franklin Sanchez PA [address] [facility] [place] [id number] PCP - General Adult Health - PA/APNP/CLASSIFICATION CASE MANAGER/TECH WRITER 07/20/21
--- OUTSIDE RECORDS SUMMARY | 2024-09-25 16:07 | XMS_ITS | Clinical Summary ---
Author Organization [facility] Address [address] [place] [address] Care Team Providers Care Mold Release Worker Name Role Phone Franklin Sanchez Primary Care Provider [phone] Allergies Active Allergy Reactions Criticality Noted Date [...] Nephrology Completed 08/07/2023 Procedures * Due to [place] [employer] law, this organization might not be sharing [...] Health Maintenance Results * Due to [place] [employer] law, this organization might not be sharing negative HIV tests. * (ABNORMAL) Microalbumin, Random Urine with Creatinine (08/07/2023 9:01 AM EST) Creatinine, Random Urine 92 20 - 275 mg/dL 08/08/2023 6:45 PM EST [facility] Microalbumin 150.8 mg/dL 08/08/2023 6:45 PM EST [employer] Comment: Verified by repeat analysis. Reference Range Not established Microalbumin/Crea tinine Ratio, Random Urine 1,639(H) <30 mcg/mg creat 08/08/2023 6:45 PM EST [employer] Comment: The ADA defines abnormalities in albumin [...] [facility] 3rd Floor, [place] [address], [place] [phone] [employer] [address] [place] [address] * (ABNORMAL) Vitamin D, 25-Hydroxy, Total, Immunoassay (06/05/2023 11:53 AM EDT) Calcidiol+ercalc idiol 22(L) 30 - 100 ng/mL 06/05/2023 9:28 PM EDT [employer] Comment: Vitamin D Status ? 25-OH Vitamin D: Deficiency: ?<20 ng/mL Insufficiency: ? 20 - 29 ng/mL Optimal: ? > or = 30 ng/mL For 25-OH Vitamin D testing on patients on D2-supplementation and patients for whom quantitation of D2 and D3 fractions is required, the QuestAssureD() 25-OH VIT D, (D2,D3), LC/MS/MS is recommended: order code 35583 (patients >2yrs). See Note 1 Note 1 For additional information, please refer to http://education.3Leaf/faq/CRP924 (This link is being provided for informational/ educational purposes only.) Blood Structure of peripheral vein / Unknown 06/05/2023 11:53 AM EDT 06/05/2023 7:56 PM EDT Narrative [facility] - 06/09/2023 5:04 AM EDT FASTING:NO us Anupama Bynum DO LAB BLOOD ORDERABLES Final Resul t [facility] [address] [facility] 3rd Floor, [place] [address], [facility] [address] [place] [address] * (ABNORMAL) CBC (06/05/2023 11:53 AM EDT) White Blood Cell Count 5.9 3.8 - 10.8 Thousand/ uL 06/05/2023 10:37 PM EDT [facility] Red Blood Cell Count 3.82 3.80 - 5.10 Million/u L 06/05/2023 10:37 PM EDT [facility] Hemoglobin 11.4(L) 11.7 - 15.5 g/dL 06/05/2023 10:37 PM EDT [facility] Hematocrit 34.4(L) 35.0 - 45.0 % 06/05/2023 10:37 PM EDT [facility] MCV 90.1 80.0 - 100.0 fL 06/05/2023 10:37 PM EDT [facility] MCH 29.8 27.0 - 33.0 pg 06/05/2023 10:37 PM EDT [facility] MCHC 33.1 32.0 - 36.0 g/dL 06/05/2023 10:37 PM EDT [facility] RDW 12.6 11.0 - 15.0 % 06/05/2023 10:37 PM EDT [facility] Platelet Count 310 140 - 400 Thousand/ uL 06/05/2023 10:37 PM EDT [employer] MPV 11.4 7.5 - 12.5 fL 06/05/2023 10:37 PM EDT [employer] Blood Structure of peripheral vein / Unknown 06/05/2023 11:53 AM EDT 06/05/2023 7:48 PM EDT Narrative [facility] - 06/09/2023 5:04 AM EDT FASTING:NO us Anupama Bynum DO LAB BLOOD ORDERABLES Final Resul t [facility] [address] [facility] 3rd Floor, [place] [address], [facility] [address] [place] [address] * (ABNORMAL) PTH, Intact (without Calcium) (06/05/2023 11:53 AM EDT) Parathyroid Hormone, Intact 205(H) 16 - 77 pg/mL 06/06/2023 1:16 AM EDT [employer] Comment: Interpretive Guide ?Intact PTH ? Calcium [...] [facility] [address], [place] [address], [email or web address] [facility] [address] [place] [address] * (ABNORMAL) Renal Function Panel (06/05/2023 11:53 AM EDT) [facility] Glucose 89 65 - 139 mg/dL 06/05/2023 10:49 PM EDT [email or web address] [facility] Comment: ? Non-fasting reference interval BUN 39(H) 7 - 25 mg/dL 06/05/2023 10:49 PM [employer] [facility] Creatinine 2.61(H) 0.50 - 1.03 mg/dL 06/05/2023 10:49 PM EDT [facility] eGFR 21(L) > OR = 60 mL/min/1. 73m2 06/05/2023 10:49 PM EDT [facility] Bun/Creatinine Ratio 15 6 - 22 (calc) 06/05/2023 10:49 PM EDT [facility] Sodium 137 135 - 146 mmol/L 06/05/2023 10:49 PM EDT [facility] Potassium 4.6 3.5 - 5.3 mmol/L 06/05/2023 10:49 PM [employer] [facility] Chloride 111(H) 98 - 110 mmol/L 06/05/2023 10:49 PM EDT [facility] Carbon Dioxide 18(L) 20 - 32 mmol/L 06/05/2023 10:49 PM EDT [facility] Calcium 9.8 8.6 - 10.4 mg/dL 06/05/2023 10:49 PM [employer] [facility] Phosphate 3.5 2.5 - 4.5 mg/dL 06/05/2023 10:49 PM [employer] [facility] Albumin 4.0 3.6 - 5.1 g/dL 06/05/2023 10:49 PM EDT [employer] Blood Structure of peripheral vein / Unknown 06/05/2023 11:53 AM EDT 06/05/2023 7:56 PM EDT Narrative [facility] - 06/09/2023 5:04 AM EDT FASTING:NO us Anupama Bynum DO LAB BLOOD ORDERABLES Final Resul t [facility] [address] [facility] [address]rd Floor, [place] [address], [place] [phone] [facility] [employer] [address] [place] [address] from Last 3 Months or Most Recently Relevant to Health Maintenance Insurance * Guarantor: Aneta Gan Account Type Relation to Patient Date of Phone Billing Address Personal/Family Self 1965 [phone] (Work) [address] [place] [id number] [facility] Member Subscriber Plan / Payer (Ef fective 2018-Present) Name:Aneta Gan Relation to Subscriber:Self Name:Aneta Gan Payer ID:[id number] Type:HMO Address: [address] Care Teams Mold Release Worker Relationship Specialty Start Date End Date Franklin Sanchez PA [address] [place] [address] PCP - General 06/05/23
== END 2024-09-25 15:27 | disposition home or self-care (01) ==
PROVIDERS: PCP Physician Assistant; Visit Provider Internal Medicine Hypertension Specialist
DX: N18.4 Chronic kidney disease, stage 4 (severe) (principal); M32.14 Glomerular disease in systemic lupus erythematosus
CPT/HCPCS: 99214

== ENCOUNTER 2024-09-26 15:24 | Outpatient (AMB) | payer OTHER, MEDICAID, SELFPAY ==
--- OUTSIDE RECORDS SUMMARY | 2024-09-26 15:26 | XMS_ITS | Referral Summary ---
Author Organization [facility] Address [address] [place] [address] Care Team Providers Care Metal Sponge Making Machine Operator Name Role Phone Franklin Sanchez Primary Care Provider [phone] Allergies Active Allergy Reactions Criticality Noted Date [...] Not on file Procedures * Due to [place] [employer] law, this organization might not be sharing [...] to Health Maintenance Results * Due to [place] [employer] law, this organization might not be sharing negative HIV tests. * (ABNORMAL) Microalbumin, Random Urine with Creatinine (08/07/2023 9:01 AM EST) Creatinine, Random Urine 92 20 - 275 mg/dL 08/08/2023 6:45 PM EST [email or web address] [facility] Microalbumin 150.8 mg/dL 08/08/2023 6:45 PM EST [employer] Comment: Verified by repeat analysis. Reference Range Not established Microalbumin/Crea tinine Ratio, Random Urine 1,639(H) <30 mcg/mg creat 08/08/2023 6:45 PM EST [employer] Comment: The ADA defines abnormalities in albumin [...] ORDERABLES Final Resul t [facility] [address] [facility] 3rd Floor, [place] [address], [facility] [address] [place] [address] * (ABNORMAL) Vitamin D, 25-Hydroxy, Total, Immunoassay (06/05/2023 11:53 AM EDT) Calcidiol+ercalc idiol 22(L) 30 - 100 ng/mL 06/05/2023 9:28 PM EDT [employer] Comment: Vitamin D Status ? 25-OH Vitamin D: Deficiency: ?<20 ng/mL Insufficiency: ? 20 - 29 ng/mL Optimal: ? > or = 30 ng/mL For 25-OH Vitamin D testing on patients on D2-supplementation and patients for whom quantitation of D2 and D3 fractions is required, the QuestAssureD() 25-OH VIT D, (D2,D3), LC/MS/MS is recommended: order code 60552 (patients >2yrs). See Note 1 Note 1 For additional information, please refer to http://education.Profound/faq/ERR699 (This link is being provided for informational/ educational purposes only.) Blood Structure of peripheral vein / Unknown 06/05/2023 11:53 AM EDT 06/05/2023 7:56 PM EDT Narrative [facility] - 06/09/2023 5:04 AM EDT FASTING:NO us Anupama Bynum DO LAB BLOOD ORDERABLES Final Resul t [facility] [address] [facility] [address], [place] [address], [email or web address] [facility] [address] [place] [address] * (ABNORMAL) CBC (06/05/2023 11:53 AM EDT) White Blood Cell Count 5.9 3.8 - 10.8 Thousand/ uL 06/05/2023 10:37 PM EDT [email or web address] [facility] Red Blood Cell Count 3.82 3.80 - 5.10 Million/u L 06/05/2023 10:37 PM EDT [email or web address] [facility] Hemoglobin 11.4(L) 11.7 - 15.5 g/dL 06/05/2023 10:37 PM EDT [email or web address] [facility] Hematocrit 34.4(L) 35.0 - 45.0 % 06/05/2023 10:37 PM EDT [email or web address] [facility] MCV 90.1 80.0 - 100.0 fL 06/05/2023 10:37 PM EDT [email or web address] [facility] MCH 29.8 27.0 - 33.0 pg 06/05/2023 10:37 PM EDT [email or web address] [facility] MCHC 33.1 32.0 - 36.0 g/dL 06/05/2023 10:37 PM EDT [email or web address] [facility] RDW 12.6 11.0 - 15.0 % 06/05/2023 10:37 PM EDT [email or web address] [facility] Platelet Count 310 140 - 400 Thousand/ uL 06/05/2023 10:37 PM EDT [employer] MPV 11.4 7.5 - 12.5 fL 06/05/2023 10:37 PM EDT [employer] Blood Structure of peripheral vein / Unknown 06/05/2023 11:53 AM EDT 06/05/2023 7:48 PM EDT Narrative [facility] - 06/09/2023 5:04 AM EDT FASTING:NO Anupamaanhun Bynum DO LAB BLOOD ORDERABLES Final Resul t [facility] [address] [facility] [address], [place] [address], [facility] [address] [place] [address] * (ABNORMAL) PTH, Intact (without Calcium) (06/05/2023 11:53 AM EDT) Parathyroid Hormone, Intact 205(H) 16 - 77 pg/mL 06/06/2023 1:16 AM EDT [employer] Comment: Interpretive Guide ?Intact PTH ? Calcium [...] ORDERABLES Final Resul t [facility] [address] [facility] [address], [place] [address], [facility] [address] [place] [address] * (ABNORMAL) Renal Function Panel (06/05/2023 11:53 AM EDT) [facility] Glucose 89 65 - 139 mg/dL 06/05/2023 10:49 PM EDT [facility] Comment: ? Non-fasting reference interval BUN 39(H) 7 - 25 mg/dL 06/05/2023 10:49 PM EDT [email or web address] [facility] Creatinine 2.61(H) 0.50 - 1.03 mg/dL 06/05/2023 10:49 PM EDT [email or web address] [facility] eGFR 21(L) > OR = 60 mL/min/1. 73m2 06/05/2023 10:49 PM EDT [email or web address] [facility] Bun/Creatinine Ratio 15 6 - 22 (calc) 06/05/2023 10:49 PM EDT [email or web address] [facility] Sodium 137 135 - 146 mmol/L 06/05/2023 10:49 PM EDT [email or web address] [facility] Potassium 4.6 3.5 - 5.3 mmol/L 06/05/2023 10:49 PM EDT [email or web address] [facility] Chloride 111(H) 98 - 110 mmol/L 06/05/2023 10:49 PM EDT [email or web address] [facility] Carbon Dioxide 18(L) 20 - 32 mmol/L 06/05/2023 10:49 PM EDT [email or web address] [facility] Calcium 9.8 8.6 - 10.4 mg/dL 06/05/2023 10:49 PM [employer] [facility] Phosphate 3.5 2.5 - 4.5 mg/dL 06/05/2023 10:49 PM EDT [email or web address] [facility] Albumin 4.0 3.6 - 5.1 g/dL 06/05/2023 10:49 PM EDT [employer] Blood Structure of peripheral vein / Unknown 06/05/2023 11:53 AM EDT 06/05/2023 7:56 PM EDT Narrative [facility] - 06/09/2023 5:04 AM EDT FASTING:NO us Anupama Bynum DO LAB BLOOD ORDERABLES Final Resul t [facility] [address] [facility] [address], [place] [address], [place] [phone] [email or web address] [facility] [address] [place] [address] from Last 3 Months or Most Recently Relevant to Health Maintenance Insurance * Guarantor: Aneta Gan Account Type Relation to Patient Date of Phone Billing Address Personal/Family Self 1965 [phone] (Work) [address] [place] [id number] [facility] Member Subscriber Plan / Payer (Ef fective 2018-Present) Name:Aneta Gan Relation to Subscriber:Self Name:Aneta Gan Payer ID:[id number] Type:HMO Address: [facility], [address] Care Teams Metal Sponge Making Machine Operator Relationship Specialty Start Date End Date Franklin Sanchez PA [address] [place] [id number] PCP - General 06/05/23
--- OUTSIDE RECORDS SUMMARY | 2024-09-26 15:26 | XMS_ITS | Clinical Summary ---
Author Organization [facility] Address [address] [place] [address] Care Team Providers Care Office Worker Name Role Phone Franklin Sanchez Primary [...] age to complete this topic Care Teams Office Worker Relationship Specialty Start Date End Date Franklin Sanchez PA [address] [place] [address] PCP - General Adult Health - PA/APNP/JORDAN MAN/BARREL ROLLER OPERATOR 07/20/21
--- OUTSIDE RECORDS SUMMARY | 2024-09-26 15:26 | XMS_ITS | Clinical Summary ---
Author Organization [facility] Address [address] [place] [address] Care Team Providers Care Rn Mobile Name Role Phone Franklin Sanchez Primary Care Provider [phone] Allergies Active Allergy Reactions Criticality Noted Date [...] (1 of 2) 2015 Pneumococcal Vaccine: 50+ Ye ars (2 of 2 - PCV) 11/09/2019 11/08/2018, 12/18/2007 DTaP,Tdap,and Td Vaccines (2 - Td or Tdap) 08/25/2021 08/25/2011, 03/24/2008 Basic Metabolic Panel 09/05/2023 06/05/2023, 023 COVID-19 Vaccine (4 - 2023-2 5 season) 2024 10/28/2021, 10/14/2020, 09/16/2020 Influenza Vaccine (#1) 2024 , 06/11/2019, 05/31/2018, Additional history exists 25 Hydroxy / Vitamin D 06/05/2024 06/05/2023 Hemoglobin 06/05/2024 06/05/2023 PTH 06/05/2024 06/05/2023 Phosphorus 06/05/2024 06/05/2023 Alcohol/Substance Use Screening 08/06/2024 Depression Screening and Follow-Up 08/06/2024 Social Drivers of Health Nayla ual Screening 08/06/2024 Urine Microalbumin 08/07/2024 08/07/2023, 1 , 06/05/2023 RSV Vaccine (60+ years old a nd patients) (1 - 1-dose 75+ series) 2040 CKD: Referral to Nephrology Completed 08/07/2023 Procedures * Due to [place] [employer] law, this organization might not be sharing [...] to Health Maintenance Results * Due to [place] [employer] law, this organization might not be sharing negative HIV tests. * (ABNORMAL) Microalbumin, Random Urine with Creatinine (08/07/2023 9:01 AM EST) Creatinine, Random Urine 92 20 - 275 mg/dL 08/08/2023 6:45 PM EST [facility] Microalbumin 150.8 mg/dL 08/08/2023 6:45 PM EST [facility] Comment: Verified by repeat analysis. Reference Range Not established Microalbumin/Crea tinine Ratio, Random Urine 1,639(H) <30 mcg/mg creat 08/08/2023 6:45 PM EST [employer] Comment: The ADA defines abnormalities in albumin [...] ORDERABLES Final Resul t [facility] [address] [facility] 3rd Floor, [place] [address], [employer] [facility] [address] [place] [address] * (ABNORMAL) Vitamin D, 25-Hydroxy, Total, Immunoassay (06/05/2023 11:53 AM EDT) Calcidiol+ercalc idiol 22(L) 30 - 100 ng/mL 06/05/2023 9:28 PM EDT [employer] Comment: Vitamin D Status ? 25-OH Vitamin D: Deficiency: ?<20 ng/mL Insufficiency: ? 20 - 29 ng/mL Optimal: ? > or = 30 ng/mL For 25-OH Vitamin D testing on patients on D2-supplementation and patients for whom quantitation of D2 and D3 fractions is required, the QuestAssureD() 25-OH VIT D, (D2,D3), LC/MS/MS is recommended: order code [id number] (patients >2yrs). See Note 1 Note 1 For additional information, please refer to http://education.Pacific Ethanol/faq/UFV934 (This link is being provided for informational/ educational purposes only.) Blood Structure of peripheral vein / Unknown 06/05/2023 11:53 AM EDT 06/05/2023 7:56 PM EDT Narrative [facility] - 06/09/2023 5:04 AM EDT FASTING:NO us Anupama Bynum DO LAB BLOOD ORDERABLES Final Resul t [facility] [address] [facility] [address]rd Floor, [place] [address], [place] [phone] [facility] [address] [place] [address] * (ABNORMAL) CBC (06/05/2023 11:53 AM EDT) White Blood Cell Count 5.9 3.8 - 10.8 Thousand/ uL 06/05/2023 10:37 PM EDT [employer] [facility] Red Blood Cell Count 3.82 3.80 - 5.10 Million/u L 06/05/2023 10:37 PM EDT [employer] [facility] Hemoglobin 11.4(L) 11.7 - 15.5 g/dL 06/05/2023 10:37 PM EDT [employer] [facility] Hematocrit 34.4(L) 35.0 - 45.0 % 06/05/2023 10:37 PM EDT [employer] [facility] MCV 90.1 80.0 - 100.0 fL 06/05/2023 10:37 PM EDT [employer] [facility] MCH 29.8 27.0 - 33.0 pg 06/05/2023 10:37 PM EDT [employer] [facility] MCHC 33.1 32.0 - 36.0 g/dL 06/05/2023 10:37 PM EDT [employer] [facility] RDW 12.6 11.0 - 15.0 % 06/05/2023 10:37 PM EDT [employer] [facility] Platelet Count 310 140 - 400 Thousand/ uL 06/05/2023 10:37 PM EDT [employer] [facility] MPV 11.4 7.5 - 12.5 fL 06/05/2023 10:37 PM EDT [employer] [facility] Blood Structure of peripheral vein / Unknown 06/05/2023 11:53 AM EDT 06/05/2023 7:48 PM EDT Narrative [facility] - 06/09/2023 5:04 AM EDT FASTING:NO us Anupama Bynum DO LAB BLOOD ORDERABLES Final Resul t [facility] [address] [facility] [address]rd Floor, [place] [address], [employer] [address] [place] [address] * (ABNORMAL) PTH, Intact (without Calcium) (06/05/2023 11:53 AM EDT) Parathyroid Hormone, Intact 205(H) 16 - 77 pg/mL 06/06/2023 1:16 AM EDT [employer] Comment: Interpretive Guide ?Intact PTH ? Calcium [...] ORDERABLES Final Resul t [facility] [address] [facility] [address] Floor, [place] [address], [employer] [address] [place] [address] * (ABNORMAL) Renal Function Panel (06/05/2023 11:53 AM EDT) Glucose 89 65 - 139 mg/dL 06/05/2023 10:49 PM EDT [employer] [facility] Comment: ? Non-fasting reference interval BUN 39(H) 7 - 25 mg/dL 06/05/2023 10:49 PM EDT [employer] [facility] Creatinine 2.61(H) 0.50 - 1.03 mg/dL 06/05/2023 10:49 PM EDT [employer] [facility] eGFR 21(L) > OR = 60 mL/min/1. 73m2 06/05/2023 10:49 PM EDT [employer] [facility] Bun/Creatinine Ratio 15 6 - 22 (calc) 06/05/2023 10:49 PM EDT [employer] [facility] Sodium 137 135 - 146 mmol/L 06/05/2023 10:49 PM EDT [employer] [facility] Potassium 4.6 3.5 - 5.3 mmol/L 06/05/2023 10:49 PM [employer] [facility] Chloride 111(H) 98 - 110 mmol/L 06/05/2023 10:49 PM EDT [employer] [facility] Carbon Dioxide 18(L) 20 - 32 mmol/L 06/05/2023 10:49 PM [employer] [facility] Calcium 9.8 8.6 - 10.4 mg/dL 06/05/2023 10:49 PM EDT [employer] [facility] Phosphate 3.5 2.5 - 4.5 mg/dL 06/05/2023 10:49 PM [employer] [place] [facility] Albumin 4.0 3.6 - 5.1 g/dL 06/05/2023 10:49 PM [employer] Blood Structure of peripheral vein / Unknown 06/05/2023 11:53 AM EDT 06/05/2023 7:56 PM EDT Narrative [facility] - 06/09/2023 5:04 AM EDT FASTING:NO us Anupama Fletcher DO LAB BLOOD ORDERABLES Final Resul t [facility] [address] [facility] [address]rd Floor, [place] [address], [place] [phone] [facility] [address] [place] [address] from Last 3 Months or Most Recently Relevant to Health Maintenance Insurance * Guarantor: Aneta Gan Account Type Relation to Patient Date of Phone Billing Address Personal/Family Self 1965 [phone] (Work) [address] [place] [phone] [facility] [phone] [place] [address] Care Teams Rn Mobile Relationship Specialty Start Date End Date Franklin Sanchez PA [address] [place] [address] [phone] PCP - General 06/05/23
--- OUTSIDE RECORDS SUMMARY | 2024-09-26 15:26 | XMS_ITS | Clinical Summary ---
Author Organization [facility] Address [address] [place] [address] Phone Care Team Providers Care Geothermal Plant Manager Name Role Phone Unavailable Primary Care Provider [...] 03/02/2016 Active ergocalciferol (VITAMIN D-2) 1.25 MG (22472 UT) capsule Take 1 capsule by mouth [...] Sigmoidoscopy 2014 Influenza Vaccine (#1) [address] [place] [address] [place] [facility] [place]
--- OUTSIDE RECORDS SUMMARY | 2024-09-26 15:26 | XMS_ITS | Encounter Summary ---
Author Organization [facility] Address [address] [place] [address] Phone Care Team Providers Care Residential Treatment Staff Name Role Phone Unavailable Primary Care Provider Unavailabl e Encounter Details Date Type Department Care Team (Late st Contact Info) Description 08/10/2022 Telephone [facility] [address] [place] [address] Roe Morrissey MD Social History [...] Iris Gee - 08/10/2022 10:19 AM EST [facility] insurance verification called, pt will need a PA for her truxima infusion that is scheduled for tomorrow. This will need to go through [facility]. documented in this encounter Plan of Treatment [...] EDT) Calcium 9.1 8.4 - 10.2 mg/dL [facility] 11/06/2022 4:2 0 PM EDT 11/06/2022 4:20 PM EDT Roe Morrissey MD LAB BLOOD ORDERABLES Final Res ult Performing Organization Address [facility] Co de Phone Number HOLESEQUIEL * (ABNORMAL) Creatinine (11/06/2022 4:20 PM EDT) Creatinine Serum 2.59(H) 0.5 - 1.4 mg/dL [facility] eGFR [facility] Comment: NOTE: ??For -[place] individuals, multiply the result ? by 1.210. Chronic Kidney Disease: ??Estimated GFR < 60 mL/min/1.73m2 Severe Kidney Disease: ??Estimated GFR < 15 mL/min/1.73m2 11/06/2022 4:20 PM EDT 11/06/2022 4:20 PM EDT Roe Morrissey MD LAB BLOOD ORDERABLES Final Res ult Performing Organization Address [facility] Co de Phone Number YOEMMANUEL * (ABNORMAL) BUN (11/06/2022 4:20 PM EDT) BUN 44(H) 9 - 16 mg/dL [place] 11/06/2022 4:20 PM EDT 11/06/2022 4:20 PM EDT Roe Morrissey MD LAB BLOOD ORDERABLES Final Res ult Performing Organization Address [facility] Co de Phone Number YOEMMANUEL * (ABNORMAL) Electrolyte panel (11/06/2022 4:20 PM [...]
[2024-09-26 15:31] LABS: Prothrombin Time Whole Bld POC 53.5 sec (11.1-13.5); ~PT, ~INR - Anti Coag Clinic 4.5 (0.9-1.1)
--- NOTE | 2024-09-26 15:33 | MHC.OFFVISCO ---
Intake Intake Visit Reasons: Anticoagulation Allergies rituximab [From Rituxan] Allergy (Severe, Verified 09/25/24 15:08) Anaphylaxis cephalexin [From Keflex] Allergy (Unknown, Verified 09/25/24 15:08) RED+ITCHY,RASH Cephalosporins [CEPHALOSPORINS] Allergy (Unknown, Verified 09/25/24 15:08) RED+ITCHY Sulfa (Sulfonamide Antibiotics) [SULFA(SULFONAMIDE ANTIBIOTICS)] Allergy (Unknown, Verified 09/25/24 15:08) RED+ITCHY mycophenolate mofetil [From CellCept] Adverse Reaction (Intermediate, Verified 09/25/24 15:08) rash cellcept Allergy (Severe, Uncoded 09/08/24 09:42) Hives retuxin Adverse Reaction (Severe, Uncoded 09/08/24 09:42) Abdominal Pain Nursing Note INR: 4.5 out of therapeutic range of 2-3 but lower than INR done 2 days ago on 09/24/24 of 5.7 Medications and supplements reviewed Patient status: no changes Medications or supplements: no changes Diet: has had increased greens the past 2 days Denies any signs and symptoms of bleeding or clotting or unusual bruising Bleeding, bruising, clotting discussed Nutritional guidance given: have a serving of greens today and tomorrow. Pt states she will have spinach. Dose: Hold today's dose of 2.5mg then 2.5mg X 5 days and 5mg X 2 days on Sun and Sun. F/U INR Date : 1 week?? Patient verbalizing understanding of instructions given. 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
== END 2024-09-26 15:39 | disposition home or self-care (01) ==
LOC: HO.ACS 15:24
PROVIDERS: PCP Physician Assistant; Visit Provider Internal Medicine
DX: Z79.01 Long term (current) use of anticoagulants (principal)

== ENCOUNTER → 2024-09-26 15:24 | Outpatient (BNVA) | payer OTHER, MEDICAID, SELFPAY | PROVIDERS: PCP Physician Assistant; Visit Provider Internal Medicine | DX: I26.99 Other pulmonary embolism without acute cor pulmonale (principal); Z79.01 Long term (current) use of anticoagulants; Z51.81 Encounter for therapeutic drug level monitoring | CPT/HCPCS: 85610; 99211 ==

== ENCOUNTER 2024-10-08 15:12 | Outpatient (AMB) | payer OTHER, MEDICAID, SELFPAY ==
[2024-10-08 15:20] LABS: Prothrombin Time Whole Bld POC 53.7 sec (11.1-13.5); ~PT, ~INR - Anti Coag Clinic 4.5 (0.9-1.1)
--- NOTE | 2024-10-08 15:33 | MHC.OFFVISCO ---
Intake Intake Visit Reasons: Anticoagulation Allergies rituximab [From Rituxan] Allergy (Severe, Verified 10/08/24 15:14) Anaphylaxis cephalexin [From Keflex] Allergy (Unknown, Verified 10/08/24 15:14) RED+ITCHY,RASH Cephalosporins [CEPHALOSPORINS] Allergy (Unknown, Verified 10/08/24 15:14) RED+ITCHY Sulfa (Sulfonamide Antibiotics) [SULFA(SULFONAMIDE ANTIBIOTICS)] Allergy (Unknown, Verified 10/08/24 15:14) RED+ITCHY mycophenolate mofetil [From CellCept] Adverse Reaction (Intermediate, Verified 09/25/24 15:08) rash cellcept Allergy (Severe, Uncoded 09/08/24 09:42) Hives retuxin Adverse Reaction (Severe, Uncoded 09/08/24 09:42) Abdominal Pain Nursing Note UNABLE TO DETERMINE REASON FOR ELEVATED INR TODAY. PT.DENIES ANY CP,SOB,DIET/MED CHANGES,FALLS OR SX OF BLEEDING. PT.ALREADY TOOK 5MGM TODAY, SO WILL HOLD 3 AND 3 THEN RESUME USUAL DOSE AND FOLLOW-UP IN 1 WEEK. PJ GOOD UNDERSTANDING OF DOSING INSTR. 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
--- OUTSIDE RECORDS SUMMARY | 2024-10-08 18:27 | XMS_ITS | Encounter Summary ---
Author Organization [facility] Address [address] [place] [address] Phone Care Team Providers Care Sugarcane Research Technician Name Role Phone Unavailable Primary Care Provider Unavailabl e Encounter Details Date Type Department Care Team (Late st Contact Info) Description 08/10/2022 Telephone [facility] [address] [place] [address] Roe Morrissey MD Social History [...] Iris Gee - 08/10/2022 10:19 AM EST [facility] insurance verification called, pt will need [...] EDT) Calcium 9.1 8.4 - 10.2 mg/dL [facility] 11/06/2022 4:20 PM EDT 11/06/2022 4:20 PM EDT Roe Morrissey MD LAB BLOOD ORDERABLES Final Res ult Performing Organization Address [facility] Co de Phone Number [place] * (ABNORMAL) Creatinine (11/06/2022 4:20 PM EDT) Creatinine Serum 2.59(H) 0.5 - 1.4 mg/dL [facility] eGFR [facility] Comment: NOTE: ??For -[place] individuals, multiply the result ? by 1.210. Chronic Kidney Disease: ??Estimated GFR < 60 mL/min/1.73m2 Severe Kidney Disease: ??Estimated GFR < 15 mL/min/1.73m2 11/06/2022 4:20 PM EDT 11/06/2022 4:20 PM EDT Roe Morrissey MD LAB BLOOD ORDERABLES Final Res ult Performing Organization Address [facility] Co de Phone Number [place] * (ABNORMAL) BUN (11/06/2022 4:20 PM EDT) BUN 44(H) 9 - 16 mg/dL [place] 11/06/2022 4:20 PM EDT 11/06/2022 4:20 PM EDT Roe Morrissey MD LAB BLOOD ORDERABLES Final Res ult Performing Organization Address [facility] Co de Phone Number [place] [...]
--- OUTSIDE RECORDS SUMMARY | 2024-10-08 18:27 | XMS_ITS | Referral Summary ---
Author Organization [facility] Address [address] [place] [address] Care Team Providers Care Sock Lining Examiner Name Role Phone Franklin Sanchez Primary Care Provider [phone] Allergies Active Allergy Reactions Criticality Noted Date [...] on file Procedures * Due to [place] [employer] law, this organization might not be sharing [...] Health Maintenance Results * Due to [place] [employer] law, this organization might not be sharing negative HIV tests. * (ABNORMAL) Microalbumin, Random Urine with Creatinine (08/07/2023 9:01 AM EST) Creatinine, Random Urine 92 20 - 275 mg/dL 08/08/2023 6:45 PM EST [facility] Microalbumin 150.8 mg/dL 08/08/2023 6:45 PM EST [facility] Comment: Verified by repeat analysis. Reference Range Not established Microalbumin/Crea tinine Ratio, Random Urine 1,639(H) <30 mcg/mg creat 08/08/2023 6:45 PM EST [facility] Comment: The ADA defines abnormalities in albumin [...] ORDERABLES Final Resul t [facility] [address] [facility] 3rd Floor, [place] [address], [facility] [address] [place] [address] * (ABNORMAL) Vitamin D, 25-Hydroxy, Total, Immunoassay (06/05/2023 11:53 AM EDT) Calcidiol+ercalc idiol 22(L) 30 - 100 ng/mL 06/05/2023 9:28 PM EDT [facility] Comment: Vitamin D Status ? 25-OH Vitamin D: Deficiency: ?<20 ng/mL Insufficiency: ? 20 - 29 ng/mL Optimal: ? > or = 30 ng/mL For 25-OH Vitamin D testing on patients on D2-supplementation and patients for whom quantitation of D2 and D3 fractions is required, the QuestAssureD() 25-OH VIT D, (D2,D3), LC/MS/MS is recommended: order code 22766 (patients >2yrs). See Note 1 Note 1 For additional information, please refer to http://education.Sokikom/faq/RRQ918 (This link is being provided for informational/ educational purposes only.) Blood Structure of peripheral vein / Unknown 06/05/2023 11:53 AM EDT 06/05/2023 7:56 PM EDT Narrative [facility] - 06/09/2023 5:04 AM EDT FASTING:NO us Anupama Bynum DO LAB BLOOD ORDERABLES Final Resul t [facility] [address] [facility] 3rd Floor, [place] [address], [facility] [facility] [employer] [facility] [address] [place] [address] * (ABNORMAL) CBC (06/05/2023 11:53 AM EDT) White Blood Cell Count 5.9 3.8 - 10.8 Thousand/ uL 06/05/2023 10:37 PM EDT [facility] Red Blood Cell Count 3.82 3.80 - 5.10 Million/u L 06/05/2023 10:37 PM EDT [facility] Hemoglobin 11.4(L) 11.7 - 15.5 g/dL 06/05/2023 10:37 PM EDT [facility] Hematocrit 34.4(L) 35.0 - 45.0 % 06/05/2023 10:37 PM EDT [facility] [employer] [facility] MCV 90.1 80.0 - 100.0 fL 06/05/2023 10:37 PM EDT [facility] MCH 29.8 27.0 - 33.0 pg 06/05/2023 10:37 PM EDT [facility] MCHC 33.1 32.0 - 36.0 g/dL 06/05/2023 10:37 PM EDT [facility] RDW 12.6 11.0 - 15.0 % 06/05/2023 10:37 PM EDT [facility] Platelet Count 310 140 - 400 Thousand/ uL 06/05/2023 10:37 PM EDT [facility] MPV 11.4 7.5 - 12.5 fL 06/05/2023 10:37 PM EDT [facility] Blood Structure of peripheral vein / Unknown 06/05/2023 11:53 AM EDT 06/05/2023 7:48 PM EDT Narrative [facility] - 06/09/2023 5:04 AM EDT FASTING:NO Anupamanahun Bynum DO LAB BLOOD ORDERABLES Final Resul t [facility] [address] [facility] [address], [place] [address], [facility] [address] [place] [address] * (ABNORMAL) PTH, Intact (without Calcium) (06/05/2023 11:53 AM EDT) Parathyroid Hormone, Intact 205(H) 16 - 77 pg/mL 06/06/2023 1:16 AM EDT [facility] Comment: Interpretive Guide ?Intact PTH ? Calcium [...] ORDERABLES Final Resul t [facility] [address] [facility] [address], [place] [address], [facility] [address] [place] [address] * (ABNORMAL) Renal Function Panel (06/05/2023 11:53 AM EDT) [facility] Glucose 89 65 - 139 mg/dL 06/05/2023 10:49 PM EDT [facility] Comment: ? Non-fasting reference interval BUN 39(H) 7 - 25 mg/dL 06/05/2023 10:49 PM EDT [facility] Creatinine 2.61(H) 0.50 - 1.03 mg/dL 06/05/2023 10:49 PM EDT [facility] eGFR 21(L) > OR = 60 mL/min/1. 73m2 06/05/2023 10:49 PM EDT [facility] Bun/Creatinine Ratio 15 6 - 22 (calc) 06/05/2023 10:49 PM EDT [facility] Sodium 137 135 - 146 mmol/L 06/05/2023 10:49 PM EDT [facility] Potassium 4.6 3.5 - 5.3 mmol/L 06/05/2023 10:49 PM EDT [facility] Chloride 111(H) 98 - 110 mmol/L 06/05/2023 10:49 PM EDT [facility] Carbon Dioxide 18(L) 20 - 32 mmol/L 06/05/2023 10:49 PM EDT [facility] Calcium 9.8 8.6 - 10.4 mg/dL 06/05/2023 10:49 PM [employer] [facility] Phosphate 3.5 2.5 - 4.5 mg/dL 06/05/2023 10:49 PM EDT [facility] Albumin 4.0 3.6 - 5.1 g/dL 06/05/2023 10:49 PM EDT [facility] Blood Structure of peripheral vein / Unknown 06/05/2023 11:53 AM EDT 06/05/2023 7:56 PM EDT Narrative [facility] - 06/09/2023 5:04 AM EDT FASTING:NO us Anupama Bynum DO LAB BLOOD ORDERABLES Final Resul t [facility] [address] [facility] [address], [place] [address], [place] [phone] [facility] [address] [place] [address] from Last 3 Months or Most Recently Relevant to Health Maintenance Insurance * Guarantor: Aneta Gan Account Type Relation to Patient Date of Phone Billing Address Personal/Family Self 1965 [phone] (Work) [address] [place] [id number] [facility] Member Subscriber Plan / Payer (Ef fective 2018-Present) Name:Aneta Gan Relation to Subscriber:Self Name:Aneta Gan Payer ID:[id number] Type:HMO Address: [facility], [address] [place] [address] Care Teams Sock Lining Examiner Relationship Specialty Start Date End Date Franklin Sanchez PA [address] [place] [id number] PCP - General 06/05/23
--- OUTSIDE RECORDS SUMMARY | 2024-10-08 18:27 | XMS_ITS | Clinical Summary ---
Author Organization [facility] Address [address] [place] [address] Care Team Providers Care Certified Adaptive Physical Educator Name Role Phone Franklin Sanchez Primary Care [...] age to complete this topic Care Teams Certified Adaptive Physical Educator Relationship Specialty Start Date End Date Franklin Sanchez PA [address] [place] [id number] PCP - General Adult Health - PA/APNP/PRESS TENDER SMOKE SIGNAL/WINDERMAN 07/20/21
--- OUTSIDE RECORDS SUMMARY | 2024-10-08 18:27 | XMS_ITS | Clinical Summary ---
Author Organization [facility] Address [address] [place] [address] Care Team Providers Care Casino Floor Person Name Role Phone Franklin Sanchez Primary Care Provider [phone] Allergies Active Allergy Reactions Criticality Noted Date [...] Nephrology Completed 08/07/2023 Procedures * Due to [place] [employer] law, this organization might not be sharing [...] to Health Maintenance Results * Due to [place] [employer] law, this organization might not be sharing negative HIV tests. * (ABNORMAL) Microalbumin, Random Urine with Creatinine (08/07/2023 9:01 AM EST) Creatinine, Random Urine 92 20 - 275 mg/dL 08/08/2023 6:45 PM EST [facility] Microalbumin 150.8 mg/dL 08/08/2023 6:45 PM EST [facility] Comment: Verified by repeat analysis. Reference Range Not established Microalbumin/Crea tinine Ratio, Random Urine 1,639(H) <30 mcg/mg creat 08/08/2023 6:45 PM EST [facility] Comment: The ADA defines abnormalities in albumin [...] ORDERABLES Final Resul t [facility] [address] [facility] 3rd [address], [place] [address], [facility] [address] [place] [address] * (ABNORMAL) Vitamin D, 25-Hydroxy, Total, Immunoassay (06/05/2023 11:53 AM EDT) Calcidiol+ercalc idiol 22(L) 30 - 100 ng/mL 06/05/2023 9:28 PM EDT [facility] Comment: Vitamin D Status ? 25-OH Vitamin D: Deficiency: ?<20 ng/mL Insufficiency: ? 20 - 29 ng/mL Optimal: ? > or = 30 ng/mL For 25-OH Vitamin D testing on patients on D2-supplementation and patients for whom quantitation of D2 and D3 fractions is required, the QuestAssureD() 25-OH VIT D, (D2,D3), LC/MS/MS is recommended: order code 23942 (patients >2yrs). See Note 1 Note 1 For additional information, please refer to http://education.Fantazzle Fantasy Sports Games/faq/GEE976 (This link is being provided for informational/ educational purposes only.) Blood Structure of peripheral vein / Unknown 06/05/2023 11:53 AM EDT 06/05/2023 7:56 PM EDT Narrative [facility] - 06/09/2023 5:04 AM EDT FASTING:NO us Anupama Bynum DO LAB BLOOD ORDERABLES Final Resul t [facility] [address] [facility] [address], [place] [address], [place] [phone] [facility] [address] [place] [address] * (ABNORMAL) CBC (06/05/2023 11:53 AM EDT) White Blood Cell Count 5.9 3.8 - 10.8 Thousand/ uL 06/05/2023 10:37 PM EDT [facility] Red Blood Cell Count 3.82 3.80 - 5.10 Million/u L 06/05/2023 10:37 PM EDT [facility] Hemoglobin 11.4(L) 11.7 - 15.5 g/dL 06/05/2023 10:37 PM EDT [facility] Hematocrit 34.4(L) 35.0 - 45.0 % 06/05/2023 10:37 PM EDT [facility] MCV 90.1 80.0 - 100.0 fL 06/05/2023 10:37 PM EDT [facility] MCH 29.8 27.0 - 33.0 pg 06/05/2023 10:37 PM EDT [facility] MCHC 33.1 32.0 - 36.0 g/dL 06/05/2023 10:37 PM EDT [facility] RDW 12.6 11.0 - 15.0 % 06/05/2023 10:37 PM EDT [facility] Platelet Count 310 140 - 400 Thousand/ uL 06/05/2023 10:37 PM EDT [facility] MPV 11.4 7.5 - 12.5 fL 06/05/2023 10:37 PM EDT [facility] Blood Structure of peripheral vein / Unknown 06/05/2023 11:53 AM EDT 06/05/2023 7:48 PM EDT Narrative [facility] - 06/09/2023 5:04 AM EDT FASTING:NO us Anupama Bynum DO LAB BLOOD ORDERABLES Final Resul t [facility] [address] [facility] [address], [place] [address], [facility] [address] [place] [address] * (ABNORMAL) PTH, Intact (without Calcium) (06/05/2023 11:53 AM EDT) Parathyroid Hormone, Intact 205(H) 16 - 77 pg/mL 06/06/2023 1:16 AM EDT [facility] Comment: Interpretive Guide ?Intact PTH ? Calcium [...] ORDERABLES Final Resul t [facility] [address] [facility] [address], [place] [address], [facility] [address] [place] [address] * (ABNORMAL) Renal Function Panel (06/05/2023 11:53 AM EDT) Glucose 89 65 - 139 mg/dL 06/05/2023 10:49 PM EDT [facility] Comment: ? Non-fasting reference interval BUN 39(H) 7 - 25 mg/dL 06/05/2023 10:49 PM EDT [facility] Creatinine 2.61(H) 0.50 - 1.03 mg/dL 06/05/2023 10:49 PM EDT [facility] eGFR 21(L) > OR = 60 mL/min/1. 73m2 06/05/2023 10:49 PM EDT [facility] Bun/Creatinine Ratio 15 6 - 22 (calc) 06/05/2023 10:49 PM EDT [facility] Sodium 137 135 - 146 mmol/L 06/05/2023 10:49 PM EDT [facility] Potassium 4.6 3.5 - 5.3 mmol/L 06/05/2023 10:49 PM [employer] [facility] Chloride 111(H) 98 - 110 mmol/L 06/05/2023 10:49 PM EDT [facility] Carbon Dioxide 18(L) 20 - 32 mmol/L 06/05/2023 10:49 PM [employer] [facility] Calcium 9.8 8.6 - 10.4 mg/dL 06/05/2023 10:49 PM EDT [facility] Phosphate 3.5 2.5 - 4.5 mg/dL 06/05/2023 10:49 PM [employer] [place] [employer] Albumin 4.0 3.6 - 5.1 g/dL 06/05/2023 10:49 PM [facility] Blood Structure of peripheral vein / Unknown 06/05/2023 11:53 AM EDT 06/05/2023 7:56 PM EDT Narrative [facility] - 06/09/2023 5:04 AM EDT FASTING:NO us Anupama Fletcher DO LAB BLOOD ORDERABLES Final Resul t [facility] [address] [facility] [address], [place] [address], [place] [phone] [facility] [address] [place] [address] from Last 3 Months or Most Recently Relevant to Health Maintenance Insurance * Guarantor: Aneta Gan Account Type Relation to Patient Date of Phone Billing Address Personal/Family Self 1965 [phone] (Work) [address] [place] [id number] [facility] [phone] [place] [address] Care Teams Casino Floor Person Relationship Specialty Start Date End Date Franklin Sanchez PA [address] [place] [address] [phone] PCP - General 06/05/23
--- OUTSIDE RECORDS SUMMARY | 2024-10-08 18:27 | XMS_ITS | Clinical Summary ---
Author Organization [facility] Address [address] [place] [address] Phone Care Team Providers Care Staff Readiness Officer Name Role Phone Unavailable Primary Care [...] 03/02/2016 Active ergocalciferol (VITAMIN D-2) 1.25 MG (97242 UT) capsule Take 1 capsule by mouth [...] Sigmoidoscopy 2014 Influenza Vaccine (#1) [address] [place] [address] HEALTH [place]ICAID [id number] [facility] [id number]
== END 2024-10-08 15:36 | disposition home or self-care (01) ==
LOC: HO.ACS 15:12
PROVIDERS: PCP Physician Assistant; Visit Provider Internal Medicine
DX: Z79.01 Long term (current) use of anticoagulants (principal)

== ENCOUNTER → 2024-10-08 15:12 | Outpatient (BNVA) | payer OTHER, MEDICAID, SELFPAY | PROVIDERS: PCP Physician Assistant; Visit Provider Internal Medicine | DX: I26.99 Other pulmonary embolism without acute cor pulmonale (principal); Z79.01 Long term (current) use of anticoagulants; Z51.81 Encounter for therapeutic drug level monitoring | CPT/HCPCS: 85610; 99211 ==

== ENCOUNTER 2024-10-16 15:14 | Outpatient (AMB) | payer OTHER, MEDICAID, SELFPAY ==
[2024-10-16 15:24] LABS: Prothrombin Time Whole Bld POC 39.7 sec (11.1-13.5); ~PT, ~INR - Anti Coag Clinic 3.3 (0.9-1.1)
--- NOTE | 2024-10-16 15:35 | MHC.OFFVISCO ---
Intake Intake Visit Reasons: Anticoagulation Allergies rituximab [From Rituxan] Allergy (Severe, Verified 10/16/24 15:14) Anaphylaxis cephalexin [From Keflex] Allergy (Unknown, Verified 10/16/24 15:14) RED+ITCHY,RASH Cephalosporins [CEPHALOSPORINS] Allergy (Unknown, Verified 10/16/24 15:14) RED+ITCHY Sulfa (Sulfonamide Antibiotics) [SULFA(SULFONAMIDE ANTIBIOTICS)] Allergy (Unknown, Verified 10/16/24 15:14) [facility] mycophenolate mofetil [From CellCept] Adverse Reaction (Intermediate, Verified 10/16/24 15:14) rash cellcept Allergy (Severe, Uncoded 10/16/24 15:14) Hives retuxin Adverse Reaction (Severe, Uncoded 10/16/24 15:14) Abdominal Pain Medication List - Last Reconciled 10/16/24 by Jessica Leary RN atorvastatin 20 mg PO BEDTIME 30 days calcitriol 0.25 mcg PO DAILY clobetasol 0.05% 1 appl topical DAILY erythromycin 1 appl ophthalmic (eye) DAILY 15 days fluocinonide 0.05% appl topical gabapentin 200 mg PO DAILY PRN levothyroxine 100 mcg PO DAILY lisinopril 2.5 mg PO DAILY loratadine 10 mg PO DAILY PRN magnesium oxide 250 mg PO BID prednisone Starting October 04, take 3 tabs daily for 1 month then remain on 2 tabs daily sodium bicarbonate 650 mg PO BID warfarin 5 mg See Protocol PO DAILY Nursing Note INR 3.3 out of therapeutic range Medications and supplements reviewed Patient status: Pt has been going through stressful times with a family member which may be increasing her stress and her INR over the past month Medications or supplements: she has stopped taking supplements Diet: good - she eat a mix of fruits and vegetables Denies any signs and symptoms of bleeding or clotting or unusual bruising Bleeding, bruising, clotting discussed Nutritional guidance given: eat a mix of fruits and vegetables that can balance your INR Dose: decrease sunday from 5mg to 2.5mg then 5mg x 1 days/ 2.5mg x 6 days F/U INR Date : 2 weeks ?? Patient verbalizing understanding of instructions given with read back Anti-Coag Initial Assessment Social Hx Patient Tobacco Use Status: Former Tobacco user Tobacco use type: Cigarette alcohol intake: former Alcohol intake frequency: does not drink Questionnaires HAS-BLED Does the patient had uncontrolled Hypertension?: No Does the patient have renal disease?: Yes Does the patient have liver disease?: No Does the patient have a history of stroke?: No Has the patient had major bleeding or predisposition to bleeding?: No Does the patient have labile INRs?: Yes Is the patient over 65 years of age?: No Is the patient on medications that gives them a predisposition to bleeding?: Yes Does the patient use alcohol?: No HAS-BLED Score: 3 CHADSVASC Age: <65 Gender: Female Does the patient have a history of CHF?: No Does the patient have a history of Hypertension?: Yes Does the patient have a history of Stroke/TIA/Thromboembolism?: Yes Does the patient have a history of Vascular Disease (prior AK, PAD or aortic plaque)?: No Does the patient have a history of Diabetes?: No CHADS VACS Score: 4 Sanaz Prediction Score Rsk VTE Active Cancer: No Previous VTE, excluding superficial vein thrombosis: Yes Reduced mobility: No Already known Thrombophilic Condition: Yes (lupus) With-in last month Trauma and/or Surgery: No Elderly 70 year or older: No Heart and/or Respiratory Failure: No Acute Myocardial infarction and/or Ischemic Stroke: No Acute Infection and/or Rheumatologic Disorder: Yes Obesity (BMI 30 or greater): No Ongoing Hormonal Treatment: No Score: 7 Sanaz Score less than 4; Low Risk of VTE Sanaz Score 4 or greater; High Risk of VTE Coding Level of Care Code Est Patient Level 1 Diagnoses Current use of anticoagulant therapy Z79.01 Assessment & Plan Assessment & Plan (1) Current use of anticoagulant therapy: Code(s): 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
--- OUTSIDE RECORDS SUMMARY | 2024-10-16 18:56 | XMS_ITS | Referral Summary ---
Author Organization [facility] Address [address] [place] [address] Care Team Providers Care Computer Processing Scheduler Name Role Phone Franklin Sanchez Primary Care Provider [phone] Allergies Active Allergy Reactions Criticality Noted Date [...] file Procedures * Due to [place] [employer] law, this organization might not be sharing [...] Maintenance Results * Due to [place] [employer] law, this organization might not be sharing negative HIV tests. * (ABNORMAL) Microalbumin, Random Urine with Creatinine (08/07/2023 9:01 AM EST) Creatinine, Random Urine 92 20 - 275 mg/dL 08/08/2023 6:45 PM EST [facility] Microalbumin 150.8 mg/dL 08/08/2023 6:45 PM EST [facility] Comment: Verified by repeat analysis. Reference Range Not established Microalbumin/Crea tinine Ratio, Random Urine 1,639(H) <30 mcg/mg creat 08/08/2023 6:45 PM EST [facility] Comment: The ADA defines abnormalities in albumin [...] Final Resul t [facility] [address] [facility] 3rd Floor, [place] [address], [facility] [address] [place] [address] * (ABNORMAL) Vitamin D, 25-Hydroxy, Total, Immunoassay (06/05/2023 11:53 AM EDT) Calcidiol+ercalc idiol 22(L) 30 - 100 ng/mL 06/05/2023 9:28 PM EDT [facility] Comment: Vitamin D Status ? 25-OH Vitamin D: Deficiency: ?<20 ng/mL Insufficiency: ? 20 - 29 ng/mL Optimal: ? > or = 30 ng/mL For 25-OH Vitamin D testing on patients on D2-supplementation and patients for whom quantitation of D2 and D3 fractions is required, the QuestAssureD() 25-OH VIT D, (D2,D3), LC/MS/MS is recommended: order code 36033 (patients >2yrs). See Note 1 Note 1 For additional information, please refer to http://education.Innova/faq/KOF750 (This link is being provided for informational/ educational purposes only.) Blood Structure of peripheral vein / Unknown 06/05/2023 11:53 AM EDT 06/05/2023 7:56 PM EDT Narrative [facility] - 06/09/2023 5:04 AM EDT FASTING:NO us Anupama Bynum DO LAB BLOOD ORDERABLES Final Resul t [facility] [address] [facility] 3rd [address], [place] [address], [facility] [address] [place] [address] * (ABNORMAL) CBC (06/05/2023 11:53 AM EDT) White Blood Cell Count 5.9 3.8 - 10.8 Thousand/ uL 06/05/2023 10:37 PM EDT [facility] Red Blood Cell Count 3.82 3.80 - 5.10 Million/u L 06/05/2023 10:37 PM EDT [facility] Hemoglobin 11.4(L) 11.7 - 15.5 g/dL 06/05/2023 10:37 PM EDT [facility] Hematocrit 34.4(L) 35.0 - 45.0 % 06/05/2023 10:37 PM EDT [facility] MCV 90.1 80.0 - 100.0 fL 06/05/2023 10:37 PM EDT [facility] MCH 29.8 27.0 - 33.0 pg 06/05/2023 10:37 PM EDT [facility] MCHC 33.1 32.0 - 36.0 g/dL 06/05/2023 10:37 PM EDT [facility] RDW 12.6 11.0 - 15.0 % 06/05/2023 10:37 PM EDT [facility] Platelet Count 310 140 - 400 Thousand/ uL 06/05/2023 10:37 PM EDT [facility] MPV 11.4 7.5 - 12.5 fL 06/05/2023 10:37 PM EDT [facility] Blood Structure of peripheral vein / Unknown 06/05/2023 11:53 AM EDT 06/05/2023 7:48 PM EDT Narrative [facility] - 06/09/2023 5:04 AM EDT FASTING:NO Anupamanahun Bynum DO LAB BLOOD ORDERABLES Final Resul t [facility] [address] [facility] [address], [place] [address], [facility] [address] [place] [address] * (ABNORMAL) PTH, Intact (without Calcium) (06/05/2023 11:53 AM EDT) Parathyroid Hormone, Intact 205(H) 16 - 77 pg/mL 06/06/2023 1:16 AM EDT [facility] Comment: Interpretive Guide ?Intact PTH ? Calcium [...] Final Resul t [facility] [address] [facility] [address], [place] [address], [facility] [address] [place] [address] * (ABNORMAL) Renal Function Panel (06/05/2023 11:53 AM EDT) [facility] Glucose 89 65 - 139 mg/dL 06/05/2023 10:49 PM EDT [facility] Comment: ? Non-fasting reference interval BUN 39(H) 7 - 25 mg/dL 06/05/2023 10:49 PM EDT [facility] Creatinine 2.61(H) 0.50 - 1.03 mg/dL 06/05/2023 10:49 PM EDT [facility] eGFR 21(L) > OR = 60 mL/min/1. 73m2 06/05/2023 10:49 PM EDT [facility] Bun/Creatinine Ratio 15 6 - 22 (calc) 06/05/2023 10:49 PM EDT [facility] Sodium 137 135 - 146 mmol/L 06/05/2023 10:49 PM EDT [facility] Potassium 4.6 3.5 - 5.3 mmol/L 06/05/2023 10:49 PM EDT [facility] Chloride 111(H) 98 - 110 mmol/L 06/05/2023 10:49 PM EDT [facility] Carbon Dioxide 18(L) 20 - 32 mmol/L 06/05/2023 10:49 PM EDT [facility] Calcium 9.8 8.6 - 10.4 mg/dL 06/05/2023 10:49 PM [facility] Phosphate 3.5 2.5 - 4.5 mg/dL 06/05/2023 10:49 PM EDT [facility] Albumin 4.0 3.6 - 5.1 g/dL 06/05/2023 10:49 PM EDT [facility] Blood Structure of peripheral vein / Unknown 06/05/2023 11:53 AM EDT 06/05/2023 7:56 PM EDT Narrative [facility] - 06/09/2023 5:04 AM EDT FASTING:NO us Anupama Bynum DO LAB BLOOD ORDERABLES Final Resul t [facility] [address] [facility] [address], [place] [address], [place] [phone] [facility] [address] [place] [address] from Last 3 Months or Most Recently Relevant to Health Maintenance Insurance * Guarantor: Aneta Gan Account Type Relation to Patient Date of Phone Billing Address Personal/Family Self 1965 [phone] (Work) [address] [place] [address] [facility] Member Subscriber Plan / Payer (Ef fective 2018-Present) Name:Aneta Gan Relation to Subscriber:Self Name:Aneta Gan Payer ID:[id number] Type:HMO Address: [facility], [address] [place] [address] Care Teams Computer Processing Scheduler Relationship Specialty Start Date End Date Franklin Sanchez PA [address] [place] [phone] PCP - General 06/05/23
--- OUTSIDE RECORDS SUMMARY | 2024-10-16 18:56 | XMS_ITS | Encounter Summary ---
Author Organization [facility] Address [address] [place] [address] Phone Care Team Providers Care Cco Name Role Phone Unavailable Primary Care Provider Unavailabl e Encounter Details Date Type Department Care Team (Late st Contact Info) Description 08/10/2022 Telephone [facility] [address] [place] [address] Roe Morrissey MD Social History [...] Iris Gee - 08/10/2022 10:19 AM EST [facility] insurance verification called, pt will need a PA for her truxima infusion that is scheduled for tomorrow. This will need to go through [facility]. documented in this encounter Plan of [...] Calcium 9.1 8.4 - 10.2 mg/dL [facility] 11/06/2022 4:20 PM EDT 11/06/2022 4:20 PM EDT Roe Morrissey MD LAB BLOOD ORDERABLES Final Res ult Performing Organization Address [facility] Co de Phone Number [place] * (ABNORMAL) Creatinine (11/06/2022 4:20 PM EDT) Creatinine Serum 2.59(H) 0.5 - 1.4 mg/dL [facility] Comment: NOTE: ??For -[place] individuals, multiply the result ? by 1.210. Chronic Kidney Disease: ??Estimated GFR < 60 mL/min/1.73m2 Severe Kidney Disease: ??Estimated GFR < 15 mL/min/1.73m2 11/06/2022 4:20 PM EDT 11/06/2022 4:20 PM EDT Roe Morrissey MD LAB BLOOD ORDERABLES Final Res ult Performing Organization Address [facility] Co de Phone Number [place] * (ABNORMAL) BUN (11/06/2022 4:20 PM EDT) BUN 44(H) 9 - 16 mg/dL [place] 11/06/2022 4:20 PM EDT 11/06/2022 4:20 PM EDT Roe Morrissey MD LAB BLOOD ORDERABLES Final Res ult Performing Organization Address [facility] Co de Phone Number [place] * [...]
--- OUTSIDE RECORDS SUMMARY | 2024-10-16 18:56 | XMS_ITS | Clinical Summary ---
Author Organization [facility] Address [address] [place] [address] Care Team Providers Care Banbury Mixer Operator Name Role Phone Franklin Sanchez Primary Care Provider [phone] Allergies Active Allergy Reactions Criticality Noted Date [...] Nephrology Completed 08/07/2023 Procedures * Due to [place] [employer] law, this organization might not be sharing [...] to Health Maintenance Results * Due to [place] [employer] law, this organization might not be sharing negative HIV tests. * (ABNORMAL) Microalbumin, Random Urine with Creatinine (08/07/2023 9:01 AM EST) Creatinine, Random Urine 92 20 - 275 mg/dL 08/08/2023 6:45 PM EST [facility] Microalbumin 150.8 mg/dL 08/08/2023 6:45 PM EST [facility] Comment: Verified by repeat analysis. Reference Range Not established Microalbumin/Crea tinine Ratio, Random Urine 1,639(H) <30 mcg/mg creat 08/08/2023 6:45 PM EST [facility] Comment: The ADA defines abnormalities in albumin [...] ORDERABLES Final Resul t [facility] [address] [facility] 3rd Floor, [place] [address], [employer] [facility] [address] [place] [address] * (ABNORMAL) Vitamin D, 25-Hydroxy, Total, Immunoassay (06/05/2023 11:53 AM EDT) Calcidiol+ercalc idiol 22(L) 30 - 100 ng/mL 06/05/2023 9:28 PM EDT [facility] Comment: Vitamin D Status ? 25-OH Vitamin D: Deficiency: ?<20 ng/mL Insufficiency: ? 20 - 29 ng/mL Optimal: ? > or = 30 ng/mL For 25-OH Vitamin D testing on patients on D2-supplementation and patients for whom quantitation of D2 and D3 fractions is required, the QuestAssureD() 25-OH VIT D, (D2,D3), LC/MS/MS is recommended: order code 76864 (patients >2yrs). See Note 1 Note 1 For additional information, please refer to http://education.kwiry/faq/JWR978 (This link is being provided for informational/ educational purposes only.) Blood Structure of peripheral vein / Unknown 06/05/2023 11:53 AM EDT 06/05/2023 7:56 PM EDT Narrative [facility] - 06/09/2023 5:04 AM EDT FASTING:NO us Anupama Bynum DO LAB BLOOD ORDERABLES Final Resul t [facility] [address] [facility] [address]rd [address], [place] [address], [place] [phone] [employer] [facility] [address] [place] [address] * (ABNORMAL) CBC (06/05/2023 11:53 AM EDT) White Blood Cell Count 5.9 3.8 - 10.8 Thousand/ uL 06/05/2023 10:[address] [facility] Red Blood Cell Count 3.82 3.80 - 5.10 Million/u L 06/05/2023 10:37 PM EDT [employer] [facility] Hemoglobin 11.4(L) 11.7 - 15.5 g/dL 06/05/2023 10:37 PM EDT [employer] [facility] Hematocrit 34.4(L) 35.0 - 45.0 % 06/05/2023 10:37 PM EDT [employer] [facility] MCV 90.1 80.0 - 100.0 fL 06/05/2023 10:37 PM EDT [employer] [facility] MCH 29.8 27.0 - 33.0 pg 06/05/2023 10:37 PM EDT [employer] [facility] MCHC 33.1 32.0 - 36.0 g/dL 06/05/2023 10:37 PM EDT [employer] [facility] RDW 12.6 11.0 - 15.0 % 06/05/2023 10:37 PM EDT [employer] [facility] Platelet Count 310 140 - 400 Thousand/ uL 06/05/2023 10:37 PM EDT [employer] [facility] MPV 11.4 7.5 - 12.5 fL 06/05/2023 10:37 PM EDT [employer] [facility] Blood Structure of peripheral vein / Unknown 06/05/2023 11:53 AM EDT 06/05/2023 7:48 PM EDT Narrative [facility] - 06/09/2023 5:04 AM EDT FASTING:NO us Anupama Bynum DO LAB BLOOD ORDERABLES Final Resul t [facility] [address] [facility] [address], [place] [address], [employer] [address] [place] [address] * (ABNORMAL) PTH, Intact (without Calcium) (06/05/2023 11:53 AM EDT) Parathyroid Hormone, Intact 205(H) 16 - 77 pg/mL 06/06/2023 1:16 AM EDT [facility] Comment: Interpretive Guide ?Intact PTH ? Calcium [...] ORDERABLES Final Resul t [facility] [address] [facility] [address], [place] [address], [employer] [address] [place] [address] * (ABNORMAL) Renal Function Panel (06/05/2023 11:53 AM EDT) Glucose 89 65 - 139 mg/dL 06/05/2023 10:[address] [facility] Comment: ? Non-fasting reference interval BUN 39(H) 7 - 25 mg/dL 06/05/2023 10:49 PM EDT [employer] [facility] Creatinine 2.61(H) 0.50 - 1.03 mg/dL 06/05/2023 10:49 PM EDT [employer] [facility] eGFR 21(L) > OR = 60 mL/min/1. 73m2 06/05/2023 10:49 PM EDT [employer] [facility] Bun/Creatinine Ratio 15 6 - 22 (calc) 06/05/2023 10:49 PM EDT [employer] [facility] Sodium 137 135 - 146 mmol/L 06/05/2023 10:49 PM EDT [employer] [facility] Potassium 4.6 3.5 - 5.3 mmol/L 06/05/2023 10:49 PM [employer] [facility] Chloride 111(H) 98 - 110 mmol/L 06/05/2023 10:49 PM EDT [employer] [facility] Carbon Dioxide 18(L) 20 - 32 mmol/L 06/05/2023 10:49 PM [employer] [facility] Calcium 9.8 8.6 - 10.4 mg/dL 06/05/2023 10:49 PM EDT [employer] [facility] Phosphate 3.5 2.5 - 4.5 mg/dL 06/05/2023 10:49 PM [employer] [place] [employer] Albumin 4.0 3.6 - 5.1 g/dL 06/05/2023 10:49 PM [facility] Blood Structure of peripheral vein / Unknown 06/05/2023 11:53 AM EDT 06/05/2023 7:56 PM EDT Narrative [facility] - 06/09/2023 5:04 AM EDT FASTING:NO us Anupama Fletcher DO LAB BLOOD ORDERABLES Final Resul t [facility] [address] [facility] [address]rd [address], [place] [address], [place] [phone] [email or web address] [address] [place] [address] from Last 3 Months or Most Recently Relevant to Health Maintenance Insurance * Guarantor: Aneat Gan Account Type Relation to Patient Date of Phone Billing Address Personal/Family Self 1965 [phone] (Work) [address] [place] [address] [facility] [id number] [place] [address] Care Teams Banbury Mixer Operator Relationship Specialty Start Date End Date Franklin Sanchez PA [address] [place] [address] [phone] PCP - General 06/05/23
--- OUTSIDE RECORDS SUMMARY | 2024-10-16 18:57 | XMS_ITS | Clinical Summary ---
Author Organization [facility] Address [address] [place] [address] Care Team Providers Care Crate Tier Name Role Phone Franklin Sanchez Primary Care [...] age to complete this topic Care Teams Crate Tier Relationship Specialty Start Date End Date Franklin Sanchez PA [address] [facility] [place] [address] PCP - General Adult Health - PA/APNP/PROOF COINS INSPECTOR/STRIPPER SOFT PLASTIC 07/20/21
--- OUTSIDE RECORDS SUMMARY | 2024-10-16 18:57 | XMS_ITS | Clinical Summary ---
Author Organization [facility] Address [address] [place] [address] Phone Care Team Providers Care Mental Health Counselor Name Role Phone Unavailable Primary Care Provider [...] 03/02/2016 Active ergocalciferol (VITAMIN D-2) 1.25 MG (18863 UT) capsule Take 1 capsule by mouth [...] Sigmoidoscopy 2014 Influenza Vaccine (#1) [address] [place] [address] [place] [facility] [place]
== END 2024-10-16 15:42 | disposition home or self-care (01) ==
LOC: HO.ACS 15:14
PROVIDERS: PCP Physician Assistant; Visit Provider Internal Medicine
DX: Z79.01 Long term (current) use of anticoagulants (principal)

== ENCOUNTER → 2024-10-16 15:14 | Outpatient (BNVA) | payer OTHER, MEDICAID, SELFPAY | PROVIDERS: PCP Physician Assistant; Visit Provider Internal Medicine | DX: I26.99 Other pulmonary embolism without acute cor pulmonale (principal); Z79.01 Long term (current) use of anticoagulants; Z51.81 Encounter for therapeutic drug level monitoring | CPT/HCPCS: 85610; 99211 ==

== ENCOUNTER 2024-11-05 15:16 | Outpatient (AMB) | payer OTHER, MEDICAID, SELFPAY ==
--- NOTE | 2024-11-05 15:22 | MHC.PC.OV ---
Vital Signs 11/05/24 15:31 Height 5 ft Weight 141 lb 6 oz BMI 27.6 BP 116/70 Blood Pressure Location Lt brachial Position Sitting Pulse 96 Pulse Source Pulse Oximeter Temp 97.3 F Temp Source Temporal Artery Scan Pulse Oximetry (%) 97 Oxygen Delivery Method Room Air Intake Visit Reasons: f/u SLE/ CKD Assistant Construction Superintendent Required: No Accompanied by: Self / Same As Patient Allergies rituximab [From Rituxan] Allergy (Severe, Verified 11/05/24 15:34) Anaphylaxis cephalexin [From Keflex] Allergy (Unknown, Verified 11/05/24 15:34) RED+ITCHY,RASH Cephalosporins [CEPHALOSPORINS] Allergy (Unknown, Verified 11/05/24 15:34) RED+ITCHY Sulfa (Sulfonamide Antibiotics) [SULFA(SULFONAMIDE ANTIBIOTICS)] Allergy (Unknown, Verified 11/05/24 15:34) RED+ITCHY mycophenolate mofetil [From CellCept] Adverse Reaction (Intermediate, Verified 11/05/24 15:34) rash cellcept Allergy (Severe, Uncoded 11/05/24 15:34) Hives retuxin Adverse Reaction (Severe, Uncoded 11/05/24 15:34) Abdominal Pain Medication List - Last Reconciled 11/05/24 by Franklin Sanchez PA-C atorvastatin 20 mg PO BEDTIME 30 days calcitriol 0.25 mcg PO DAILY clobetasol 0.05% 1 appl topical DAILY fluocinonide 0.05% appl topical gabapentin 200 mg PO DAILY PRN levothyroxine 100 mcg PO DAILY lisinopril 2.5 mg PO DAILY loratadine 10 mg PO DAILY PRN magnesium oxide 250 mg PO BID sodium bicarbonate 650 mg PO BID warfarin 5 mg See Protocol PO DAILY Tobacco use date assessed: 09/08/24 Dental Screening Dental Screen Date: 09/08/24 HPI f/u SLE/ CKD HPI Details Patient is a 59-year-old female here today for a follow-up visit. Patient has a past medical history significant for SLE, hypothyroidism, hypertriglyceridemia, chronic anticoagulation use, former smoker. Concern--> . 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 Most recent creatinine improved at 3.04 in the setting of an acute viral illness . She does have repeat labs and follow up with her practice specialist. ? Has been able to lose a significant amount weight due to lifestyle changes. Continues on anticoagulation without any overt signs of bleeding. Also followed by a practice specialist and considering dialysis.? Has gotten 2nd opinion through practice specialist and [place] though no medication was recommended. Again dialysis was considered.. Has trialed retuxin though had a terrible adverse reaction. ?? Has use magnesium supplementation in the past with good effect. At this point there is no further treatment that has been covered by insurance or patient has been able to tolerate for her glomerular nephritis. She has been told her lupus was in remission by her previous rheumatology provider. She will be following up with a new rheumatology provider in near future here in [place]. .. .. Hypothyroidism:? Patient's thyroid has now normalized on lower dose levothyroxine 100 mcg .? Continues to follow Endocrinology as well . ? Hypertriglyceridemia: Has a history elevated triglycerides. Has been trying to manage her triglycerides with dietary modifications. Has upcoming of appointment with procedure rn. Laboratory Tests 04/02/24 07/11/24 07/11/24 16:05 09:25 09:28 Hgb 11.3 L Creatinine 3.04 H Cholesterol 154 Urine Protein 300 (3+) H U Random Total Pro tein 387 H SARS-CoV-2 RNA (RT -PCR) 09/13/24 09/13/24 09/13/24 09:41 09:45 10:04 Hgb 10.5 L Creatinine 3.37 H Cholesterol Urine Protein >=1000 (4+) H U Random Total Pro tein 562 H SARS-CoV-2 RNA (RT -PCR) POSITIVE A [facility] Medical History Prediabetes SLE glomerulonephritis syndrome History of pulmonary embolism Vitamin D deficiency Hypertriglyceridemia Hypothyroidism Surgical History Hx of tubal ligation Family History Father Family history unknown Mother Hypertension Diabetes Deep vein thrombosis CVA (cerebral vascular accident) Brother CVA (cerebral vascular accident), Onset Age: 48 Brother CVA (cerebral vascular accident), Onset Age: 38 Social History Household Members: None Housing: House Alcohol intake: former Patient Tobacco Use Status: Former Tobacco user Tobacco use type: Cigarette e-Cigarette/Vaping Use: Never Used Second Hand Smoke Exposure: Yes service: No Current occupational status: employed 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 Gino Young, Seble Chahal, Dennis Zendejas and colleagues, with an educational clara from [employer]. Review of Systems Const Denies headache(s) Eyes Denies loss of vision ENT Denies vertigo, Denies dizziness, Denies headache(s) and Denies sore throat Card Denies chest pain, Denies leg edema and Denies lightheadedness Resp Denies cough, Denies hemoptysis and Denies wheezing GI Denies abdominal pain, Denies melena, Denies constipation, Denies diarrhea and Denies vomiting Denies urinary frequency, Denies dysuria and Denies urinary urgency Musc Denies arthralgias, Denies joint swelling, Denies numbness and Denies tingling Neuro Denies Abnormal speech present, Denies behavioral changes, Denies vertigo, Denies dizziness, Denies headache(s), Denies loss of vision, Denies memory loss, Denies numbness and Denies tingling Psych Denies anxiety, Denies behavioral changes, Denies depression, Denies memory loss and Denies panic attacks [place]/Lymph Denies easy bleeding and Denies easy bruising Aller/Immun Denies wheezing Physical exam (Primary Care) Vital Signs: Last Vital Signs Temp 97.3 F 11/05/24 15:31 Pulse 96 11/05/24 15:31 BP 116/70 11/05/24 15:31 Pulse Ox 97 11/05/24 15:31 Oxygen Delivery Method Room Air 11/05/24 15:31 BMI result Body Mass Index 27.6 Tobacco/Smoking Status: Tobacco use Status Tobacco use date assessed 09/08/24 11/05/24 15:22 Patient Tobacco Use Status Former Tobacco user 11/05/24 15:22 Tobacco use type Cigarette 11/05/24 15:22 e-Cigarette/Vaping Use Never Used 11/05/24 15:22 Thrive Assessment: Date of Thrive Assessment Date Thrive assessed 09/08/24 11/05/24 15:22 Const General: healthy appearing, no acute distress, alert and awake Nutritional Appearance: well nourished Orientation/consciousness: oriented to person, oriented to place and oriented to time HENMT Ears: TM's normal bilaterally General nose exam: Normal nasal mucous membranes and turbinates present Eyes Conjunctivae: conjunctivae normal Sclerae: sclerae normal Pupils: Equal, round and reactive pupils present Neck Neck: Yes no lymphadenopathy and Yes no JVD Thyroid: Thyroid normal Carotids: no bruits Resp Effort & Inspection: normal respiratory effort and not tachypneic Auscultation: no crackles, no rales, no rhonchi and no wheezes Cardio Rate: regular rate Rhythm: regular rhythm Heart sounds: no murmurs and normal S1 and S2 GI Palpation (GI): Soft to palpation, nontender, no hepatomegaly and no splenomegaly Auscultation: normal bowel sounds Skin General skin exam: no rashes or lesions noted and dry skin Neuro General: oriented to person, oriented to place and oriented to time Cranial nerves: Yes Equal, round and reactive pupils present Speech: No Abnormal speech present Gait exam (Neuro): Normal gait present Motor exam (neuro): no tremor noted Extrem Right upper extremity: full ROM Left upper extremity: full ROM Right lower extremity: full ROM; no edema Left lower extremity: full ROM; no edema Psych Mental Status: mental status grossly normal Speech and movement: Normal speech and movement present Affect: normal affect Attitude: cooperative Thought process: Normal thought process present Coding Level of Care Code Est Pt Level 4 (30200) Diagnoses 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 E03.8; E06.3 Hypothyroidism type: due to Yaa's thyroiditis 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 Will continue current dose of levothyroxine (2) Lupus (systemic lupus erythematosus): Comment: onset 2177-6813 Treated with Cytoxan and prednisone Coumadin throughout Cyclosporin 2006 DC due to epigastric pain CellCept 2008 up titrated to 3 g daily, developed worsening proteinuria Rituximab 2 doses, 2 weeks apart 2010 Believes that she took hydroxychloroquine and discontinued it due to tinnitus ?! Benlysta 02/2012 was helpful especially for skin lesions. Discontinued due to loss of insurance Acthar gel 2016 took it for about a year inconsistently Repeat kidney biopsy 04/2022 showed class 3 and 5 nephritis. Received 1 dose of rituximab 08/2022 with some improvement Benlysta 12/2023. DC 02/2024. Could not afford co-pay CellCept tried again 02/2024. DC'd after 1 dose due to rash Code(s): M32.9 - Systemic lupus erythematosus, unspecified Category: Medical Qualifiers: Systemic lupus erythematosus organ involvement: glomerular disease Systemic lupus erythematosus type: other Qualified Code(s): M32.14 - Glomerular disease in systemic lupus erythematosus Plan: Patient has upcoming appointment with Rheumatology here in [place]. She was told that her lipids was in remission in the past though she would like a 2nd opinion from a new rheumatology professional. (3) SLE glomerulonephritis syndrome: Comment: onset 8992-6304 class 3 and class 5 nephritis, low C3, low C4 Repeat kidney biopsy 04/2022 showed class 3 and 5 nephritis. Received 1 dose of rituximab 08/2022 with some improvement Code(s): M32.14 - Glomerular disease in systemic lupus erythematosus Category: Medical Plan: Continues to follow [place] rheumatology. She reports her autoimmune lupus has been in remission. Her most recent GFR reduced to 14 though in the setting of having an infection COVID. She will be following up with her practice specialist and rechecking kidney function. (4) CKD (chronic kidney disease) stage 4, GFR 15-29 ml/min: Code(s): N18.4 - Chronic kidney disease, stage 4 (severe) Category: Medical Plan: As per HPI patient followed by Nephrology for her chronic kidney disease secondary to her lupus. Will continue to abstain from nephrotoxins (5) Hypertriglyceridemia: Code(s): E78.1 - Pure hyperglyceridemia Category: Medical Plan: Continues to follow dietary modifications to reduce her triglycerides. She is due for repeat fasting lipid panel. Followed by [place] endocrinology. Orders: Orders Vitamin D 25-OH Total 11/05/24 E55.9 - Vitamin D deficiency, unspecified Lipid Panel 11/05/24 E78.1 - Pure hyperglyceridemia Comprehensive [place]. Panel Fast 11/05/24 N18.4 - Chronic kidney disease, stage 4 (severe) Complete Blood Count no Diff 11/05/24 N18.4 - Chronic kidney disease, stage 4 (severe) TSH reflex Free T4 11/05/24 E03.8 - Other specified hypothyroidism, E06.3 - Autoimmune thyroiditis
[2024-11-05 15:31] VITALS: BP 116/70; PULSE 96; TEMP 36.3; O2SAT 97; BMI 27.6
--- OUTSIDE RECORDS SUMMARY | 2024-11-05 17:42 | XMS_ITS | Clinical Summary ---
Author Organization [facility] Address [address] [place] [address] Phone Care Team Providers Care Screwdown Operator Name Role Phone Unavailable Primary Care [...] 03/02/2016 Active ergocalciferol (VITAMIN D-2) 1.25 MG (24766 UT) capsule Take 1 capsule by mouth [...] Sigmoidoscopy 2014 Influenza Vaccine (#1) [address] [place] [address] [place] [facility] [place]
--- OUTSIDE RECORDS SUMMARY | 2024-11-05 17:42 | XMS_ITS | Encounter Summary ---
Author Organization [facility] Address [address] [place] [address] Phone Care Team Providers Care Mill Labor Supervisor Name Role Phone Unavailable Primary Care Provider Unavailabl e Encounter Details Date Type Department Care Team (Late st Contact Info) Description 08/10/2022 Telephone [facility] [address] [place] [address] Roe Morrissey MD Social History [...] Iris Gee - 08/10/2022 10:19 AM EST [facility] insurance verification called, pt will need a PA for her truxima infusion that is scheduled for tomorrow. This will need to go through [facility]. documented in this encounter Plan of [...] Calcium 9.1 8.4 - 10.2 mg/[facility] 11/06/2022 4:20 PM EDT 11/06/2022 4:20 PM EDT Roe Morrissey MD LAB BLOOD ORDERABLES Final Res ult Performing Organization Address [facility] Co de Phone Number [place] * (ABNORMAL) Creatinine (11/06/2022 4:20 PM EDT) Creatinine Serum 2.59(H) 0.5 - 1.4 mg/dL [facility] eGFR 19 [facility]KE Comment: NOTE: ??For -[place] individuals, multiply the result ? by 1.210. Chronic Kidney Disease: ??Estimated GFR < 60 mL/min/1.73m2 Severe Kidney Disease: ??Estimated GFR < 15 mL/min/1.73m2 11/06/2022 4:20 PM EDT 11/06/2022 4:20 PM EDT Roe Morrissey MD LAB BLOOD ORDERABLES Final Res ult Performing Organization Address [facility] Co de Phone Number [place] * (ABNORMAL) BUN (11/06/2022 4:20 PM EDT) BUN 44(H) 9 - 16 mg/dL [place] 11/06/2022 4:20 PM EDT 11/06/2022 4:20 PM EDT Roe Morrissey MD LAB BLOOD ORDERABLES Final Res ult Performing Organization Address [facility] Co de Phone Number [place] * (ABNORMAL) [...]
--- OUTSIDE RECORDS SUMMARY | 2024-11-05 17:42 | XMS_ITS ---
Author Name [facility] Organization Unknown Care Team Organization Name Specialty Phone Email Start Date End [facility] JESUSITA MCNULTY Primary Care
--- OUTSIDE RECORDS SUMMARY | 2024-11-05 17:42 | XMS_ITS ---
Author Organization [facility] Address [address] [place] [address] Care Team Providers Care Multifocal Button Grinder Name Role Phone Franklin Sanchez Primary Care Provider [phone] Transplant Episode Kidney Candidate [facility] ([place], [place]) - [facility] Referred on 10/23/2024 Marked as Active on 10/30/2024 Reason: Scheduled for Evaluation Kidney CoordinatorZenobia Zepeda RN Email: N/A Scores Score Value Updated Exceptions/Reas ons CPRA Not available EPTS (Calc) 27 11/05/2024 Care Team Name Role Phone Fax Email Zenobia Zepeda RN Kidney Coordinator [phone] N/A Roe Morrissey Referring Physician [phone] N/A Events Pre-Transplant Referred: 10/23/2024
--- OUTSIDE RECORDS SUMMARY | 2024-11-05 17:42 | XMS_ITS | Clinical Summary ---
Author Organization [facility] Address [address] [place] [address] Care Team Providers Care Cream Dipper Name Role Phone Franklin Sanchez Primary Care [...] age to complete this topic Care Teams Cream Dipper Relationship Specialty Start Date End Date Franklin Sanchez PA [address] [facility] [place] [id number] PCP - General Adult Health - PA/APNP/SYSTEMS INTEGRATION ANALYST/DIESEL ENGINE MECHANIC APPRENTICE 07/20/21
--- OUTSIDE RECORDS SUMMARY | 2024-11-05 17:42 | XMS_ITS | Referral Summary ---
Author Organization [facility] Address [address] [place] [address] Care Team Providers Care Traffic Enumerator Name Role Phone Franklin Sanchez Primary Care Provider [phone] Encounters Date Type Department Care Team Description 10/30/2024 Telephone [facility] Transplant Department [address] [place] [address] Zenobia Zepeda RN from Last 3 Months Allergies Active Allergy Reactions Criticality Noted Date [...] 08/07/2023 8:16 AM EST Plan of Treatment Upcoming Encounters Date Type Department Care Team (Late st Contact Info) Description 12/11/2024 8:00 AM EDT Office Visit [facility] Renal Transplant [address] [place] [address] 12/11/2024 8:30 AM EDT Evaluation [facility] Renal Transplant [address] [place] [address] Zenobia Zepeda RN [address] [place] [address] 12/11/2024 9:30 AM EDT Social Work [facility] Renal Transplant [address] [place] [address] Delores Sepulveda LICSW [address] [place] [address] 12/11/2024 10:15 AM EDT Office Visit [facility] Renal Transplant [address] [place] [address] 08772 Franklin Flowers MD [address] [place] [address] Procedures * Due to [place] state law, this organization might not be sharing negative HIV tests. Procedure Name Priority Date/Time Associated Diagnosis Comments MICROALBUMIN, RANDOM URINE WITH CREATININE Routine 08/07/2023 9:01 AM EST Chronic kidney disease, stage 4 (severe) CBC Routine 06/05/2023 11:53 AM EDT Chronic kidney disease, stage 4 (severe) Membranous lupus glomerulonephritis VITAMIN D, 25-HYDROXY, TOTAL, IMMUNOASSAY Routine 06/05/2023 11:53 AM EDT Chronic kidney disease, stage 4 (severe) Membranous lupus glomerulonephritis PTH, INTACT (WITHOUT CALCIUM) Routine 06/05/2023 11:53 AM EDT Chronic kidney disease, stage 4 (severe) Membranous lupus glomerulonephritis RENAL FUNCTION PANEL Routine 06/05/2023 11:53 AM EDT Chronic kidney disease, stage 4 (severe) Membranous lupus glomerulonephritis from Last 3 Months or Most Recently Relevant to Health Maintenance Results * Due to [place] state law, this organization might not be sharing negative HIV tests. * (ABNORMAL) Microalbumin, Random Urine with Creatinine (08/07/2023 9:01 AM EST) Creatinine, Random Urine 92 20 - 275 mg/dL 08/08/2023 6:45 PM EST [facility] Microalbumin 150.8 mg/dL 08/08/2023 6:45 PM EST [facility] Comment: Verified by repeat analysis. Reference Range Not established Microalbumin/Crea tinine Ratio, Random Urine 1,639(H) <30 mcg/mg creat 08/08/2023 6:45 PM EST [facility] Comment: The ADA defines abnormalities in albumin [...] 9:01 AM EST 08/07/2023 11:48 PM EST Anupama Bynum DO LAB URINE ORDERABLES Final Resul t Performing Organization Address City/[facility] [address]/ZIP Co de Phone Number [facility] [address], [place] [address], [place] [phone] Home Team Therapy [facility] [address] [place] [address] * (ABNORMAL) Vitamin D, 25-Hydroxy, Total, Immunoassay (06/05/2023 11:53 AM EDT) Calcidiol+ercalc idiol 22(L) 30 - 100 ng/mL 06/05/2023 9:28 PM EDT [facility] Comment: Vitamin D Status ? 25-OH Vitamin D: Deficiency: ?<20 ng/mL Insufficiency: ? 20 - 29 ng/mL Optimal: ? > or = 30 ng/mL For 25-OH Vitamin D testing on patients on D2-supplementation and patients for whom quantitation of D2 and D3 fractions is required, the QuestAssureD(TM) 25-OH VIT D, (D2,D3), LC/MS/MS is recommended: order code 10972 (patients >2yrs). See Note 1 Note 1 For additional information, please refer to http://education.[employer]/faq/YLH812 (This link is being provided for informational/ educational purposes only.) Blood Structure of peripheral vein / Unknown 06/05/2023 11:53 AM EDT 06/05/2023 7:56 PM EDT Narrative [facility] - 06/09/2023 5:04 AM EDT FASTING:NO us Anupama Bynum DO LAB BLOOD ORDERABLES Final Resul t Performing Organization Address City/[facility] [address]/ZIP Co de Phone Number [facility] [address] Floor, [place] [address], [place] [phone] [facility] [address] [place] [address] * (ABNORMAL) CBC (06/05/2023 11:53 AM EDT) White Blood Cell Count 5.9 3.8 - 10.8 Thousand/ uL 06/05/2023 10:37 PM EDT Home [facility] Red Blood Cell Count 3.82 3.80 - 5.10 Million/u L 06/05/2023 10:37 PM EDT [facility] Hemoglobin 11.4(L) 11.7 - 15.5 g/dL 06/05/2023 10:37 PM EDT [facility] Hematocrit 34.4(L) 35.0 - 45.0 % 06/05/2023 10:37 PM EDT Home Team Therapy [facility] MCV 90.1 80.0 - 100.0 fL 06/05/2023 10:37 PM EDT Home Team Therapy [facility] MCH 29.8 27.0 - 33.0 pg 06/05/2023 10:37 PM EDT Home Team Therapy [facility] MCHC 33.1 32.0 - 36.0 g/dL 06/05/2023 10:37 PM EDT Home Team Therapy [facility] RDW 12.6 11.0 - 15.0 % 06/05/2023 10:37 PM EDT Home Team Therapy [facility] Platelet Count 310 140 - 400 Thousand/ uL 06/05/2023 10:37 PM EDT Home Team Therapy [facility] MPV 11.4 7.5 - 12.5 fL 06/05/2023 10:37 PM EDT Home Team Therapy [facility] Blood Structure of peripheral vein / Unknown 06/05/2023 11:53 AM EDT 06/05/2023 7:48 PM EDT Narrative [facility] - 06/09/2023 5:04 AM EDT FASTING:NO us Anupama Bynum DO LAB BLOOD ORDERABLES Final Resul t [facility] 200 [facility] [address]rd Floor, [place] [address], [facility] [address] [place] [address] * (ABNORMAL) PTH, Intact (without Calcium) (06/05/2023 11:53 AM EDT) Parathyroid Hormone, Intact 205(H) 16 - 77 pg/mL 06/06/2023 1:16 AM EDT [facility] Comment: Interpretive Guide ?Intact PTH ? [...] ORDERABLES Final Resul t [facility] 200 [facility] [address]rd Floor, [place] [address], [place] [phone] [facility] [address] [place] [address] * (ABNORMAL) Renal Function Panel (06/05/2023 11:53 AM EDT) Pathologist [facility] Glucose 89 65 - 139 mg/dL 06/05/2023 10:49 PM EDT [facility] Comment: ? Non-fasting reference interval BUN 39(H) 7 - 25 mg/dL 06/05/2023 10:49 PM EDT Home Team Therapy [facility] Creatinine 2.61(H) 0.50 - 1.03 mg/dL 06/05/2023 10:49 PM EDT Home Team Therapy [facility] eGFR 21(L) > OR = 60 mL/min/1. 73m2 06/05/2023 10:49 PM EDT Home Team Therapy [facility] Bun/Creatinine Ratio 15 6 - 22 (calc) 06/05/2023 10:49 PM EDT Home Team Therapy [facility] Sodium 137 135 - 146 mmol/L 06/05/2023 10:49 PM EDT Home Team Therapy [facility] Potassium 4.6 3.5 - 5.3 mmol/L 06/05/2023 10:49 PM EDT Home Team Therapy [facility] Chloride 111(H) 98 - 110 mmol/L 06/05/2023 10:49 PM EDT Home Team Therapy [facility] Carbon Dioxide 18(L) 20 - 32 mmol/L 06/05/2023 10:49 PM EDT Home Team Therapy [facility] Calcium 9.8 8.6 - 10.4 mg/dL 06/05/2023 10:49 PM EDT Home Team Therapy [facility] Phosphate 3.5 2.5 - 4.5 mg/dL 06/05/2023 10:49 PM EDT Home Team Therapy [facility] Albumin 4.0 3.6 - 5.1 g/dL 06/05/2023 10:49 PM EDT [facility] Blood Structure of peripheral vein / Unknown 06/05/2023 11:53 AM EDT 06/05/2023 7:56 PM EDT Narrative [facility] - 06/09/2023 5:04 AM EDT FASTING:NO us Anupama Bynum DO LAB BLOOD ORDERABLES Final Resul t [facility] 200 [facility] [address]rd Floor, [place] [address], [facility] [address] [place] [address] from Last 3 Months or Most Recently Relevant to Health Maintenance Insurance * Guarantor: Aneta Gan Account Type Relation to Patient Date of Phone Billing Address Personal/Family Self 1965 [phone] (Work) [address] [place] [address] [facility] * Guarantor: Judith Gana Account Type Relation to Patient Date of Phone Billing Address Transplant Self 1965 [phone] (Work) [address] [place] [address] [facility] Care Teams Traffic Enumerator Relationship Specialty Start Date End Date Franklin Sanchez PA [address] [place] [address] PCP - General 06/05/23
--- OUTSIDE RECORDS SUMMARY | 2024-11-05 17:42 | XMS_ITS | Clinical Summary ---
Author Organization [facility] Address [address] [place] [address] Care Team Providers Care Photogrammetric Technician Name Role Phone Franklin Sanchez Primary Care Provider [phone] Allergies Active Allergy Reactions Criticality Noted Date [...] Active Active Problems No known active problems Encounters Date Type Department Care Team Description 10/30/2024 Telephone [facility] Transplant Department [address] [place] [address] Zenobia Zepeda RN from Last 3 Months Family History Medical History Relation Name Comments [...] Description 12/11/2024 8:00 AM EDT Office Visit [facility] Renal Transplant [address] [place] [address] 12/11/2024 8:30 AM EDT Evaluation [facility] Renal Transplant [address] [place] [address] Zenobia Zepeda RN [address] [place] [address] 12/11/2024 9:30 AM EDT Social Work [facility] Renal Transplant [address] [place] [address] Delores Sepulveda LICSW [address] [place] [address] 12/11/2024 10:15 AM EDT Office Visit [facility] Renal Transplant [address] [place] [address] Franklin Flowers MD [address] [place] [address] Health Maintenance Due Date Last Done Comments [...] 2023-2 5 season) 2024 10/28/2021, 10/14/2020, 09/16/2020 25 Hydroxy / Vitamin D 06/05/2024 06/05/2023 Hemoglobin 06/05/2024 06/05/2023 PTH 06/05/2024 06/05/2023 Phosphorus 06/05/2024 06/05/2023 Alcohol/Substance Use Screening 08/06/2024 Depression Screening and Follow-Up 08/06/2024 Social Drivers of Health Nayla ual Screening 08/06/2024 Urine Microalbumin 08/07/2024 08/07/2023, 1 , 06/05/2023 RSV Vaccine (60+ years old a nd patients) (1 - 1-dose 75+ series) 2040 CKD: Referral to Nephrology Completed 08/07/2023 Influenza Vaccine Completed 07/16/2024, , 06/11/2019, Additional history exists Procedures * Due to [place] state law, this organization might not be [...] Maintenance Results * Due to [place] state law, this organization might not be sharing negative HIV tests. * (ABNORMAL) Microalbumin, Random Urine with Creatinine (08/07/2023 9:01 AM EST) Creatinine, Random Urine 92 20 - 275 mg/dL 08/08/2023 6:45 PM EST [facility] Microalbumin 150.8 mg/dL 08/08/2023 6:45 PM EST [facility] Comment: Verified by repeat analysis. Reference Range Not established Microalbumin/Crea tinine Ratio, Random Urine 1,639(H) <30 mcg/mg creat 08/08/2023 6:45 PM EST [facility] Comment: The ADA defines abnormalities in albumin [...] ORDERABLES Final Resul t [facility] [address], [place] [address], [place] [phone] [facility] [address] [place] [address] * (ABNORMAL) Vitamin D, 25-Hydroxy, Total, Immunoassay (06/05/2023 11:53 AM EDT) [facility] Calcidiol+ercalc idiol 22(L) 30 - 100 ng/mL 06/05/2023 9:28 PM EDT [facility] Comment: Vitamin D Status ? 25-OH Vitamin D: Deficiency: ?<20 ng/mL Insufficiency: ? 20 - 29 ng/mL Optimal: ? > or = 30 ng/mL For 25-OH Vitamin D testing on patients on D2-supplementation and patients for whom quantitation of D2 and D3 fractions is required, the QuestAssureD(TM) 25-OH VIT D, (D2,D3), LC/MS/MS is recommended: order code 23656 (patients >2yrs). See Note 1 Note 1 For additional information, please refer to http://education.[employer] [place]/faq/AAG678 (This link is being provided for informational/ educational purposes only.) Blood Structure of peripheral vein / Unknown 06/05/2023 11:53 AM EDT 06/05/2023 7:56 PM EDT Narrative [facility] - 06/09/2023 5:04 AM EDT FASTING:NO us Anupama Bynum DO LAB BLOOD ORDERABLES Final Resul t [facility] [address], [place] [address], [place] [phone] [facility] [address] [place] [address] * (ABNORMAL) CBC (06/05/2023 11:53 AM EDT) White Blood Cell Count 5.9 3.8 - 10.8 Thousand/ uL 06/05/2023 10:37 PM EDT [facility] Red Blood Cell Count 3.82 3.80 - 5.10 Million/u L 06/05/2023 10:37 PM EDT [facility] Hemoglobin 11.4(L) 11.7 - 15.5 g/dL 06/05/2023 10:37 PM EDT [facility] Hematocrit 34.4(L) 35.0 - 45.0 % 06/05/2023 10:37 PM EDT [facility] MCV 90.1 80.0 - 100.0 fL 06/05/2023 10:37 PM EDT [facility] MCH 29.8 27.0 - 33.0 pg 06/05/2023 10:37 PM EDT [facility] MCHC 33.1 32.0 - 36.0 g/dL 06/05/2023 10:37 PM EDT [facility] RDW 12.6 11.0 - 15.0 % 06/05/2023 10:37 PM EDT [facility] Platelet Count 310 140 - 400 Thousand/ uL 06/05/2023 10:37 PM EDT [facility] MPV 11.4 7.5 - 12.5 fL 06/05/2023 10:37 PM EDT [facility] Blood Structure of peripheral vein / Unknown 06/05/2023 11:53 AM EDT 06/05/2023 7:48 PM EDT Narrative [facility] - 06/09/2023 5:04 AM EDT FASTING:NO Anupama Bynum DO LAB BLOOD ORDERABLES Final Resul t [facility] [address] [facility] 3rd Floor, [place] [address], [facility] [address] [place] [address] * (ABNORMAL) PTH, Intact (without Calcium) (06/05/2023 11:53 AM EDT) Parathyroid Hormone, Intact 205(H) 16 - 77 pg/mL 06/06/2023 1:16 AM EDT [facility] Comment: Interpretive Guide ?Intact PTH ? Calcium [facility], [place] [address], [facility] [address] [place] [address] * (ABNORMAL) Renal Function Panel (06/05/2023 11:53 AM EDT) Glucose 89 65 - 139 mg/dL 06/05/2023 10:49 PM EDT [facility] Comment: ? Non-fasting reference interval BUN 39(H) 7 - 25 mg/dL 06/05/2023 10:49 PM EDT [facility] Creatinine 2.61(H) 0.50 - 1.03 mg/dL 06/05/2023 10:49 PM EDT [facility] eGFR 21(L) > OR = 60 mL/min/1. 73m2 06/05/2023 10:49 PM EDT [facility] Bun/Creatinine Ratio 15 6 - 22 (calc) 06/05/2023 10:49 PM EDT [facility] Sodium 137 135 - 146 mmol/L 06/05/2023 10:49 PM EDT [facility] Potassium 4.6 3.5 - 5.3 mmol/L 06/05/2023 10:49 PM EDT [facility] Chloride 111(H) 98 - 110 mmol/L 06/05/2023 10:49 PM EDT [facility] Carbon Dioxide 18(L) 20 - 32 mmol/L 06/05/2023 10:49 PM EDT [facility] Calcium 9.8 8.6 - 10.4 mg/dL 06/05/2023 10:49 PM EDT [facility] Phosphate 3.5 2.5 - 4.5 mg/dL 06/05/2023 10:49 PM EDT [facility] Albumin 4.0 3.6 - 5.1 g/dL 06/05/2023 10:49 PM EDT [facility] Blood Structure of peripheral vein / Unknown 06/05/2023 11:53 AM EDT 06/05/2023 7:56 PM EDT Narrative [facility] - 06/09/2023 5:04 AM EDT FASTING:NO us Anupama Bynum DO LAB BLOOD ORDERABLES Final Resul t [facility] [address] [facility] 3rd Floor, [place] [address], [place] [phone] [facility] [address] [place] [address] from Last 3 Months or Most Recently Relevant to Health Maintenance Insurance * Guarantor: Aneta Gan Account Type Relation to Patient Date of Phone Billing Address Personal/Family Self 1965 [phone] (Work) [address] [place] [address] [facility] * Guarantor: Aneta Gan Account Type Relation to Patient Date of Phone Billing Address Transplant Self 1965 [phone] [facility] [address] [place] [id number] Care Teams Photogrammetric Technician Relationship Specialty Start Date End Date Franklin Sanchez PA [address] [place] [phone] [facility] - General 06/05/23
== END 2024-11-05 15:48 | disposition home or self-care (01) ==
LOC: HO.HMCH 15:17
PROVIDERS: PCP Physician Assistant; Visit Provider Physician Assistant
DX: E03.8 Other specified hypothyroidism (principal); E06.3 Autoimmune thyroiditis; M32.14 Glomerular disease in systemic lupus erythematosus; N18.4 Chronic kidney disease, stage 4 (severe); E78.1 Pure hyperglyceridemia

== ENCOUNTER 2024-11-13 15:27 | Outpatient (AMB) | payer OTHER, MEDICAID, SELFPAY ==
--- NOTE | 2024-11-13 15:36 | MHC.OFFVISCO ---
Intake Intake Visit Reasons: Anticoagulation Allergies rituximab [From Rituxan] Allergy (Severe, Verified 11/13/24 15:30) Anaphylaxis cephalexin [From Keflex] Allergy (Unknown, Verified 11/13/24 15:30) RED+ITCHY,RASH Cephalosporins [CEPHALOSPORINS] Allergy (Unknown, Verified 11/13/24 15:30) RED+ITCHY Sulfa (Sulfonamide Antibiotics) [SULFA(SULFONAMIDE ANTIBIOTICS)] Allergy (Unknown, Verified 11/13/24 15:30) RED+ITCHY mycophenolate mofetil [From CellCept] Adverse Reaction (Intermediate, Verified 11/13/24 15:30) rash cellcept Allergy (Severe, Uncoded 11/13/24 15:30) Hives retuxin Adverse Reaction (Severe, Uncoded 11/13/24 15:30) Abdominal Pain Medication List - Last Reconciled 11/13/24 by Joann Braden, RN atorvastatin 20 mg PO BEDTIME 30 days calcitriol 0.25 mcg PO DAILY clobetasol 0.05% 1 appl topical DAILY fluocinonide 0.05% appl topical gabapentin 200 mg PO DAILY PRN levothyroxine 100 mcg PO DAILY lisinopril 2.5 mg PO DAILY loratadine 10 mg PO DAILY PRN magnesium oxide 250 mg PO BID sodium bicarbonate 650 mg PO BID warfarin 5 mg See Protocol PO DAILY Nursing Note INR: 4.3?out of therapeutic range of 2-3 Has been running high since 09/24/24 when INR spiked at 5.7 Her dose has been adjusted accordingly and weekly dose decreased Medications and supplements reviewed; no changes Patient status: States she has had a fever of 100.2-100.6 the past 4 days since she started having chills but has no S/S of infection. No cough, SOB, No UTI symptoms etc. Diet: States she has been busy and maybe has not taken in enough greens Denies any signs and symptoms of bleeding or clotting or unusual bruising Bleeding, bruising, clotting discussed Nutritional guidance given: to have a serving of greens today and tomorrow. Food list discussed and pt will have spinach and cabbage. Dose: she took today's dose so will hold tomorrow's dose of 2.5mg then weekly dose decreased to 2.5mg daily instead of 2.5mg X 6 days and 5mg X 1 day F/U INR Date: 2 weeks? Patient verbalizing understanding of instructions given. Message send via composed note to Aldo Sanchez PA-C to inform of higher INR's and chills/fever. Pt concerned her Lupus may be acting up. Anti-Coag Initial Assessment Social Hx Patient Tobacco Use Status: Former Tobacco user Tobacco use type: Cigarette alcohol intake: former Alcohol intake frequency: does not drink Coding Level of Care Code Est Patient Level 1 Diagnoses Current use of anticoagulant therapy Z79.01 Results AMB INR Fingerstick AMB INR Fingerstick 4.3 Last Edit by Joann Braden, RN on 11/13/24 15:36 interface delay Assessment & Plan Assessment & Plan (1) Current use of anticoagulant therapy: Code(s): Z79.01 - intermediate designer (current) use of anticoagulants Category: Medical
[2024-11-13 15:37] LABS: Prothrombin Time Whole Bld POC 51.8 sec (11.1-13.5); ~PT, ~INR - Anti Coag Clinic 4.3 (0.9-1.1)
--- OUTSIDE RECORDS SUMMARY | 2024-11-13 17:44 | XMS_ITS ---
Author Organization [facility] Address [address] [place] [address] Care Team Providers Care Student Dean Name Role Phone Franklin Sanchez Primary Care Provider [phone] Transplant Episode Kidney Candidate [facility] ([place], [place]) - [place] Referred on 10/23/2024 Marked as Active on 10/30/2024 Reason: Scheduled for Evaluation Kidney CoordinatorZenobia Zepeda RN Email: N/A Scores Score Value Updated Exceptions/Reas ons CPRA Not available EPTS (Calc) 27 11/13/2024 Care Team Name Role Phone Fax Email Zenobia Zepeda RN Kidney Coordinator [phone] N/A Roe Morrissey Referring Physician [phone] N/A Events Pre-Transplant Referred: 10/23/2024 Appointments (10/13/2024 - 12/13/2024) When With Visit Type Description 12/11/2024 Transplant - Jonas Flowers Transpl ant Evaluation Visit 12/11/2024 Transplant - Daniel Sepulveda Transpla nt Evaluation Visit 12/11/2024 Transplant - Rebecca Zepeda Transplant Evaluation Visit 12/11/2024 Transplant Transplant Evalu ation Visit
--- OUTSIDE RECORDS SUMMARY | 2024-11-13 17:44 | XMS_ITS | Clinical Summary ---
Author Organization [facility] Address [address] [place] [address] Care Team Providers Care Swing Saw Operator Name Role Phone Franklin Sanchez Primary Care Provider [phone] Allergies Active Allergy Reactions Criticality Noted Date [...] Telephone [facility] Transplant Department [address] [place] [address] Zenobia Zepeda RN from Last [...] Visit [facility] Renal Transplant [address] [place] [address] 12/11/2024 8:30 AM EDT Evaluation [facility] Renal Transplant [address] [place] [address] Zenobia Zepeda RN [address] [place] [address] 12/11/2024 9:30 AM EDT Social Work [facility] Renal Transplant [address] [place] [address] Delores Sepulveda LICSW [address] [place] [address] 12/11/2024 10:15 AM EDT Office Visit [facility] Renal Transplant [address] [place] [address] Franklin Flowers MD [address] [place] [address] Health Maintenance Due Date Last Done Comments [...] - 275 mg/dL 08/08/2023 6:45 PM EST [employer] Microalbumin 150.8 mg/dL 08/08/2023 6:45 PM EST [employer] [facility] Comment: Verified by repeat analysis. Reference Range Not established Microalbumin/Crea tinine Ratio, Random Urine 1,639(H) <30 mcg/mg creat 08/08/2023 6:45 PM EST [employer] [facility] Comment: The ADA defines abnormalities in albumin [...] ORDERABLES Final Resul t [facility] [address] 3rd Floor, [place] [address], [place] [phone] [employer] [facility] [address] [place] [address] * (ABNORMAL) Vitamin D, 25-Hydroxy, Total, Immunoassay (06/05/2023 11:53 AM EDT) [facility] Calcidiol+ercalc idiol 22(L) 30 - 100 ng/mL 06/05/2023 9:28 PM EDT [employer] [facility] Comment: Vitamin D Status ? 25-OH Vitamin D: Deficiency: ?<20 ng/mL Insufficiency: ? 20 - 29 ng/mL Optimal: ? > or = 30 ng/mL For 25-OH Vitamin D testing on patients on D2-supplementation and patients for whom quantitation of D2 and D3 fractions is required, the QuestAssureD(TM) 25-OH VIT D, (D2,D3), LC/MS/MS is recommended: order code 60123 (patients >2yrs). See Note 1 Note 1 For additional information, please refer to http://education.[employer]/faq/MNU333 (This link is being provided for informational/ educational purposes only.) Blood Structure of peripheral vein / Unknown 06/05/2023 11:53 AM EDT 06/05/2023 7:56 PM EDT Narrative [facility] AMBULATORY - 06/09/2023 5:04 AM EDT FASTING:NO us Anupmaa Bynum DO LAB BLOOD ORDERABLES Final Resul t [facility] [address], [place] [address], [place] [phone] [employer] [facility] [address] [place] [address] * (ABNORMAL) CBC (06/05/2023 11:53 AM EDT) White Blood Cell Count 5.9 3.8 - 10.8 Thousand/ uL 06/05/2023 10:37 PM EDT [employer] [facility] Red Blood Cell Count 3.82 3.80 - 5.10 Million/u L 06/05/2023 10:37 PM EDT [employer] [facility] Hemoglobin 11.4(L) 11.7 - 15.5 g/dL 06/05/2023 10:37 PM EDT [employer] [facility] Hematocrit 34.4(L) 35.0 - 45.0 % 06/05/2023 10:37 PM EDT [employer] [facility] MCV 90.1 80.0 - 100.0 fL 06/05/2023 10:37 PM EDT [employer] [facility] MCH 29.8 27.0 - 33.0 pg 06/05/2023 10:37 PM EDT [employer] [facility] MCHC 33.1 32.0 - 36.0 g/dL 06/05/2023 10:37 PM EDT [employer] [facility] RDW 12.6 11.0 - 15.0 % 06/05/2023 10:37 PM EDT [employer] [facility] Platelet Count 310 140 - 400 Thousand/ uL 06/05/2023 10:37 PM EDT [employer] [facility] MPV 11.4 7.5 - 12.5 fL 06/05/2023 10:37 PM EDT [employer] [facility] Blood Structure of peripheral vein / Unknown 06/05/2023 11:53 AM EDT 06/05/2023 7:48 PM EDT Narrative [facility]UL[facility]ORY - 06/09/2023 5:04 AM EDT FASTING:NO Anupama Bynum DO LAB BLOOD ORDERABLES Final Resul t [facility] 200 [facility] 3rd Floor, [place] [address], [employer] [facility] [address] [place] [address] * (ABNORMAL) PTH, Intact (without Calcium) (06/05/2023 11:53 AM EDT) Parathyroid Hormone, Intact 205(H) 16 - 77 pg/mL 06/06/2023 1:16 AM EDT [employer] Comment: Interpretive Guide ?Intact PTH ? Calcium [...] 200 [facility] 3[address] Floor, [place] [address], [employer] [address] [place] [address] * (ABNORMAL) Renal Function Panel (06/05/2023 11:53 AM EDT) Glucose 89 65 - 139 mg/dL 06/05/2023 10:49 PM EDT [employer] Comment: ? Non-fasting reference interval BUN 39(H) 7 - 25 mg/dL 06/05/2023 10:49 PM EDT [employer] Creatinine 2.61(H) 0.50 - 1.03 mg/dL 06/05/2023 10:49 PM EDT [employer] [facility] eGFR 21(L) > OR = 60 mL/min/1. 73m2 06/05/2023 10:49 PM EDT [employer] [facility] Bun/Creatinine Ratio 15 6 - 22 (calc) 06/05/2023 10:49 PM EDT [employer] [facility] Sodium 137 135 - 146 mmol/L 06/05/2023 10:49 PM EDT [employer] [facility] Potassium 4.6 3.5 - 5.3 mmol/L 06/05/2023 10:49 PM EDT [employer] [facility] Chloride 111(H) 98 - 110 mmol/L 06/05/2023 10:49 PM EDT [employer] [facility] Carbon Dioxide 18(L) 20 - 32 mmol/L 06/05/2023 10:49 PM EDT [employer] [facility] Calcium 9.8 8.6 - 10.4 mg/dL 06/05/2023 10:49 PM EDT [employer] [facility] Phosphate 3.5 2.5 - 4.5 mg/dL 06/05/2023 10:49 PM EDT [employer] [facility] Albumin 4.0 3.6 - 5.1 g/dL 06/05/2023 10:49 PM EDT [employer] [facility] Blood Structure of peripheral vein / Unknown 06/05/2023 11:53 AM EDT 06/05/2023 7:56 PM EDT Narrative [facility] - 06/09/2023 5:04 AM EDT FASTING:NO us Anupama Bynum DO LAB BLOOD ORDERABLES Final Resul t [facility] 200 [facility] 3rd Floor, [place] [address], [place] [phone] [employer] [facility] [address] [place] [address] from Last 3 Months or Most Recently Relevant to Health Maintenance Insurance * Guarantor: nAeta Gan Account Type Relation to Patient Date of Phone Billing Address Personal/Family Self 1965 [phone] (Work) [address] [place] [address] [facility] * Guarantor: Aneta Gan Account Type Relation to Patient Date of Phone Billing Address Transplant Self 1965 [phone] [address] [place] [address] Care Teams Swing Saw Operator Relationship Specialty Start Date End Date Franklin Sanchez PA [address] [place] [address] [facility] - General 06/05/23
--- OUTSIDE RECORDS SUMMARY | 2024-11-13 17:44 | XMS_ITS | Referral Summary ---
Author Organization [facility] Address [address] [place] [address] Care Team Providers Care Fire Safety Manager Name Role Phone Franklin Sanchez Primary Care Provider [phone] Encounters Date Type Department Care Team Description 10/30/2024 Telephone [facility] Transplant Department [address] [place] [phone] Zenobia Zepeda RN from Last 3 Months [...] Description 12/11/2024 8:00 AM EDT Office Visit [facility] Renal Transplant [address] [place] [address] 12/11/2024 8:30 AM EDT Evaluation [facility] Renal Transplant [address] [place] [address] Zenobia Zepeda RN [address] [place] [address] 12/11/2024 9:30 AM EDT Social Work [facility] Renal Transplant [address] [place] [address] Delores Sepulveda LICSW [address] [place] [address] 12/11/2024 10:15 AM EDT Office Visit [facility] Renal Transplant [address] [place] [address] Franklin Flowers MD [address] [place] [address] Procedures * Due to [place] state law, this organization might not be [...] to Health Maintenance Results * Due to [place] state law, this organization might not be sharing negative HIV tests. * (ABNORMAL) Microalbumin, Random Urine with Creatinine (08/07/2023 9:01 AM EST) Creatinine, Random Urine 92 20 - 275 mg/dL 08/08/2023 6:45 PM EST [employer] [facility] Microalbumin 150.8 mg/dL 08/08/2023 6:45 PM EST [employer] [facility] Comment: Verified by repeat analysis. Reference Range Not established Microalbumin/Crea tinine Ratio, Random Urine 1,639(H) <30 mcg/mg creat 08/08/2023 6:45 PM EST [employer] [facility] Comment: The ADA defines abnormalities in albumin [...] ORDERABLES Final Resul t Performing Organization Address City/[facility]/ZIP Co de Phone Number [facility] [address], [place] [address], [place] [phone] [employer] [facility] [address] [place] [address] * (ABNORMAL) Vitamin D, 25-Hydroxy, Total, Immunoassay (06/05/2023 11:53 AM EDT) Calcidiol+ercalc idiol 22(L) 30 - 100 ng/mL 06/05/2023 9:28 PM EDT [employer] [facility] Comment: Vitamin D Status ? 25-OH Vitamin D: Deficiency: ?<20 ng/mL Insufficiency: ? 20 - 29 ng/mL Optimal: ? > or = 30 ng/mL For 25-OH Vitamin D testing on patients on D2-supplementation and patients for whom quantitation of D2 and D3 fractions is required, the QuestAssureD(TM) 25-OH VIT D, (D2,D3), LC/MS/MS is recommended: order code 65142 (patients >2yrs). See Note 1 Note 1 For additional information, please refer to http://education.[employer]/faq/ZUH324 (This link is being provided for informational/ educational purposes only.) Blood Structure of peripheral vein / Unknown 06/05/2023 11:53 AM EDT 06/05/2023 7:56 PM EDT Narrative [facility] - 06/09/2023 5:04 AM EDT FASTING:NO us Anupama Bynum DO LAB BLOOD ORDERABLES Final Resul t Performing Organization Address City/[facility]/ZIP Co de Phone Number [facility] [address], [place] [address], [place] [phone] [employer] [facility] [address] [place] [address] * (ABNORMAL) CBC (06/05/2023 11:53 AM EDT) White Blood Cell Count 5.9 3.8 - 10.8 Thousand/ uL 06/05/2023 10:37 PM EDT [employer] [facility] Red Blood Cell Count 3.82 3.80 - 5.10 Million/u L 06/05/2023 10:37 PM EDT [employer] [facility] Hemoglobin 11.4(L) 11.7 - 15.5 g/dL 06/05/2023 10:37 PM EDT [employer] [facility] Hematocrit 34.4(L) 35.0 - 45.0 % 06/05/2023 10:37 PM EDT [employer] [facility] MCV 90.1 80.0 - 100.0 fL 06/05/2023 10:37 PM EDT [employer] [facility] MCH 29.8 27.0 - 33.0 pg 06/05/2023 10:37 PM EDT [employer] [facility] MCHC 33.1 32.0 - 36.0 g/dL 06/05/2023 10:37 PM EDT [employer] [facility] RDW 12.6 11.0 - 15.0 % 06/05/2023 10:37 PM EDT [employer] [facility] Platelet Count 310 140 - 400 Thousand/ uL 06/05/2023 10:37 PM EDT [employer] [facility] MPV 11.4 7.5 - 12.5 fL 06/05/2023 10:37 PM EDT [employer] [facility] Blood Structure of peripheral vein / Unknown 06/05/2023 11:53 AM EDT 06/05/2023 7:48 PM EDT Narrative [facility] - 06/09/2023 5:04 AM EDT FASTING:NO us Anupama Bynum DO LAB BLOOD ORDERABLES Final Resul t [facility] 200 [facility] 3rd Floor, [place] [address], [employer] [facility] [address] [place] [address] * (ABNORMAL) PTH, Intact (without Calcium) (06/05/2023 11:53 AM EDT) Parathyroid Hormone, Intact 205(H) 16 - 77 pg/mL 06/06/2023 1:16 AM EDT [employer] Comment: Interpretive Guide ?Intact PTH ? Calcium [...] ORDERABLES Final Resul t [facility] 200 [facility] 3rd Floor, [place] [address], [place] [phone] [facility] [address] [place] [address] * (ABNORMAL) Renal Function Panel (06/05/2023 11:53 AM EDT) Pathologist [facility] Glucose 89 65 - 139 mg/dL 06/05/2023 10:49 PM EDT [employer] Comment: ? Non-fasting reference interval BUN 39(H) 7 - 25 mg/dL 06/05/2023 10:49 PM EDT [employer] [facility] Creatinine 2.61(H) 0.50 - 1.03 mg/dL 06/05/2023 10:49 PM EDT [employer] [facility] eGFR 21(L) > OR = 60 mL/min/1. 73m2 06/05/2023 10:49 PM EDT [employer] [facility] Bun/Creatinine Ratio 15 6 - 22 (calc) 06/05/2023 10:49 PM EDT [employer] [facility] Sodium 137 135 - 146 mmol/L 06/05/2023 10:49 PM EDT [employer] [facility] Potassium 4.6 3.5 - 5.3 mmol/L 06/05/2023 10:49 PM EDT [employer] [facility] Chloride 111(H) 98 - 110 mmol/L 06/05/2023 10:49 PM EDT [employer] [facility] Carbon Dioxide 18(L) 20 - 32 mmol/L 06/05/2023 10:49 PM EDT [employer] [facility] Calcium 9.8 8.6 - 10.4 mg/dL 06/05/2023 10:49 PM EDT [employer] [facility] Phosphate 3.5 2.5 - 4.5 mg/dL 06/05/2023 10:49 PM EDT [employer] [facility] Albumin 4.0 3.6 - 5.1 g/dL 06/05/2023 10:49 PM EDT [employer] [facility] Blood Structure of peripheral vein / Unknown 06/05/2023 11:53 AM EDT 06/05/2023 7:56 PM EDT Narrative [facility] - 06/09/2023 5:04 AM EDT FASTING:NO us Anupama Bynum DO LAB BLOOD ORDERABLES Final Resul t [facility] 200 [facility] 3rd [address], [place] [address], [employer] [facility] [address] [place] [address] from Last 3 Months or Most Recently Relevant to Health Maintenance Insurance * Guarantor: Aneta Gan Account Type Relation to Patient Date of Phone Billing Address Personal/Family Self 1965 [phone] (Work) [address] [place] [address] [facility] * Guarantor: Judith Gana Account Type Relation to Patient Date of Phone Billing Address Transplant Self 1965 [phone] (Work) [address] [place] [address] [address] [facility] Care Teams Fire Safety Manager Relationship Specialty Start Date End Date Franklin Sanchez PA [address] [place] [address] PCP - General 06/05/23
--- OUTSIDE RECORDS SUMMARY | 2024-11-13 17:44 | XMS_ITS | Clinical Summary ---
Author Organization [facility] Address [address] [place] [address] Care Team Providers Care Assistant Activities Director Name Role Phone Franklin Sanchez Primary [...] age to complete this topic Care Teams Assistant Activities Director Relationship Specialty Start Date End Date Franklin Sanchez PA [address] [place] [id number] PCP - General Adult Health - PA/APNP/ROUTE SALESMAN AND DRIVER/WASH OIL COOLER OPERATOR 07/20/21
--- OUTSIDE RECORDS SUMMARY | 2024-11-13 17:44 | XMS_ITS | Clinical Summary ---
Author Organization [facility] Address [address] [place] [address] Phone Care Team Providers Care Metal Spraying Machine Operator Name Role Phone Unavailable Primary Care [...] 03/02/2016 Active ergocalciferol (VITAMIN D-2) 1.25 MG (13438 UT) capsule Take 1 capsule by mouth [...] Comments Breast Cancer Screening 1965 Pneumococcal Vaccine: Peds ( 0 to 5 Years) and At-Risk Patients (6 to 49 Years) (1 of 2 - PCV) 1971 Hepatitis B Vaccine (1 of 3 - 19+ 3-dose series) 07/13 Colorectal Cancer Screening: Annual FOBT 2014 Colorectal Cancer Screening: Colonoscopy 2014 Colorectal Cancer Screening: Sigmoidoscopy 2014 Influenza Vaccine (Season Ended) [address] [place] [address] [place] [facility] [place]
--- OUTSIDE RECORDS SUMMARY | 2024-11-13 17:44 | XMS_ITS | Encounter Summary ---
Author Organization [facility] Address [address] [place] [address] Phone Care Team Providers Care Frothing Machine Operator Name Role Phone Unavailable Primary Care Provider Unavailabl e Encounter Details Date Type Department Care Team (Late st Contact Info) Description 08/10/2022 Telephone [facility] [address] [place] [address] Roe Morrissey MD Social History [...] tomorrow. This will need to go through [facility]. documented in this encounter Plan of [...] EDT) Calcium 9.1 8.4 - 10.2 mg/dL [facility] 11/06/2022 4:20 PM EDT 11/06/2022 4:20 PM EDT Roe Morrissey MD LAB BLOOD ORDERABLES Final Res ult Performing Organization Address [facility] Co de Phone Number [place] * (ABNORMAL) Creatinine (11/06/2022 4:20 PM EDT) Creatinine Serum 2.59(H) 0.5 - 1.4 mg/dL [facility] Comment: NOTE: ??For -[place] individuals, multiply the result ? by 1.210. Chronic Kidney Disease: ??Estimated GFR < 60 mL/min/1.73m2 Severe Kidney Disease: ??Estimated GFR < 15 mL/min/1.73m2 11/06/2022 4:20 PM EDT 11/06/2022 4:20 PM EDT Roe Morrissey MD LAB BLOOD ORDERABLES Final Res ult Performing Organization Address [facility] Co de Phone Number [place] * (ABNORMAL) BUN (11/06/2022 4:20 PM EDT) BUN 44(H) 9 - 16 mg/dL [place] 11/06/2022 4:20 PM EDT 11/06/2022 4:20 PM EDT Roe Morrissey MD LAB BLOOD ORDERABLES Final Res ult Performing Organization Address [facility] Co de Phone Number [place] * (ABNORMAL) [...]
== END 2024-11-13 15:59 | disposition home or self-care (01) ==
LOC: HO.ACS 15:27
PROVIDERS: PCP Physician Assistant; Visit Provider Internal Medicine Medical Oncology
DX: Z79.01 Long term (current) use of anticoagulants (principal)

== ENCOUNTER → 2024-11-13 15:27 | Outpatient (BNVA) | payer OTHER, MEDICAID, SELFPAY | PROVIDERS: PCP Physician Assistant; Visit Provider Internal Medicine Medical Oncology | DX: I26.99 Other pulmonary embolism without acute cor pulmonale (principal); Z79.01 Long term (current) use of anticoagulants; Z51.81 Encounter for therapeutic drug level monitoring | CPT/HCPCS: 85610; 99211 ==

== ENCOUNTER 2024-11-14 07:57 | Outpatient (REF) | payer OTHER, MEDICAID, SELFPAY ==
--- OUTSIDE RECORDS SUMMARY | 2024-11-14 07:59 | XMS_ITS | Clinical Summary ---
Author Organization [facility] Address [address] [place] [address] Care Team Providers Care Maintenance Shop Welder Name Role Phone Franklin Sanchez Primary Care Provider [phone] Allergies Active Allergy Reactions Criticality Noted Date [...] Type Department Care Team Description 10/30/2024 Telephone [facility] Transplant Department [address] [place] [address] Zenobia eZpeda RN from Last 3 Months Family History [...] Description 12/11/2024 8:00 AM EDT Office Visit [facility] Renal Transplant [address] [place] [address] 12/11/2024 8:30 AM EDT Evaluation [facility] Renal Transplant [address] [place] [address] Zenobia Zepeda RN [address] [place] [address] 12/11/2024 9:30 AM EDT Social Work [facility] Renal Transplant [address] [place] [address] Delores Sepulveda LICSW [address] [place] [address] 12/11/2024 10:15 AM EDT Office Visit [facility] Renal Transplant [address] [place] [address] Franklin Flowers MD [address] [place] [address] Health Maintenance Due Date Last Done Comments [...] Additional history exists Procedures * Due to [place] state law, this organization might not be [...] Health Maintenance Results * Due to [place] state law, this organization might not be sharing negative HIV tests. * (ABNORMAL) Microalbumin, Random Urine with Creatinine (08/07/2023 9:01 AM EST) Creatinine, Random Urine 92 20 - 275 mg/dL 08/08/2023 6:45 PM EST [facility] Microalbumin 150.8 mg/dL 08/08/2023 6:45 PM EST [facility] Comment: Verified by repeat analysis. Reference Range Not established Microalbumin/Crea tinine Ratio, Random Urine 1,639(H) <30 mcg/mg creat 08/08/2023 6:45 PM EST [facility] Comment: The ADA defines [...] ORDERABLES Final Resul t [facility] [address] 3rd Floor, [place] [address], [place] [phone] [facility] [address] [place] [address] * (ABNORMAL) Vitamin D, 25-Hydroxy, Total, Immunoassay (06/05/2023 11:53 AM EDT) [facility] Calcidiol+ercalc idiol 22(L) 30 - 100 ng/mL 06/05/2023 9:28 PM EDT [facility] Comment: Vitamin D Status ? 25-OH Vitamin D: Deficiency: ?<20 ng/mL Insufficiency: ? 20 - 29 ng/mL Optimal: ? > or = 30 ng/mL For 25-OH Vitamin D testing on patients on D2-supplementation and patients for whom quantitation of D2 and D3 fractions is required, the QuestAssureD(TM) 25-OH VIT D, (D2,D3), LC/MS/MS is recommended: order code 57349 (patients >2yrs). See Note 1 Note 1 For additional information, please refer to http://education.[employer]/faq/IOG105 (This link is being provided for informational/ educational purposes only.) Blood Structure of peripheral vein / Unknown 06/05/2023 11:53 AM EDT 06/05/2023 7:56 PM EDT Narrative [facility] - 06/09/2023 5:04 AM EDT FASTING:NO us Anupama Bynum DO LAB BLOOD ORDERABLES Final Resul t [facility] [address] Floor, [place] [address], [place] [phone] [facility] [address] [place] [address] * (ABNORMAL) CBC (06/05/2023 11:53 AM EDT) White Blood Cell Count 5.9 3.8 - 10.8 Thousand/ uL 06/05/2023 10:37 PM EDT [facility] Red Blood Cell Count 3.82 3.80 - 5.10 Million/u L 06/05/2023 10:37 PM EDT [facility] Hemoglobin 11.4(L) 11.7 - 15.5 g/dL 06/05/2023 10:37 PM EDT [facility] Hematocrit 34.4(L) 35.0 - 45.0 % 06/05/2023 10:37 PM EDT [facility] MCV 90.1 80.0 - 100.0 fL 06/05/2023 10:37 PM EDT [facility] MCH 29.8 27.0 - 33.0 pg 06/05/2023 10:37 PM EDT [facility] MCHC 33.1 32.0 - 36.0 g/dL 06/05/2023 10:37 PM EDT [facility] RDW 12.6 11.0 - 15.0 % 06/05/2023 10:37 PM EDT [facility] Platelet Count 310 140 - 400 Thousand/ uL 06/05/2023 10:37 PM EDT [facility] MPV 11.4 7.5 - 12.5 fL 06/05/2023 10:37 PM EDT [facility] Blood Structure of peripheral vein / Unknown 06/05/2023 11:53 AM EDT 06/05/2023 7:48 PM EDT Narrative [facility] - 06/09/2023 5:04 AM EDT FASTING:NO Anupama Bynum DO LAB BLOOD ORDERABLES Final Resul t [facility] [address] [facility] 3rd Floor, [place] [address], [facility] [address] [place] [address] * (ABNORMAL) PTH, Intact (without Calcium) (06/05/2023 11:53 AM EDT) Parathyroid Hormone, Intact 205(H) 16 - 77 pg/mL 06/06/2023 1:16 AM EDT [facility] Comment: Interpretive Guide ?Intact PTH ? [...] Final Resul t [facility] [address] [facility] 3rd Floor, [place] [address], [facility] [address] [place] [address] * (ABNORMAL) Renal Function Panel (06/05/2023 11:53 AM EDT) Glucose 89 65 - 139 mg/dL 06/05/2023 10:49 PM EDT [facility] Comment: ? Non-fasting reference interval BUN 39(H) 7 - 25 mg/dL 06/05/2023 10:49 PM EDT [facility] Creatinine 2.61(H) 0.50 - 1.03 mg/dL 06/05/2023 10:49 PM EDT [facility] eGFR 21(L) > OR = 60 mL/min/1. 73m2 06/05/2023 10:49 PM EDT [facility] Bun/Creatinine Ratio 15 6 - 22 (calc) 06/05/2023 10:49 PM EDT [facility] Sodium 137 135 - 146 mmol/L 06/05/2023 10:49 PM EDT [facility] Potassium 4.6 3.5 - 5.3 mmol/L 06/05/2023 10:49 PM EDT [facility] Chloride 111(H) 98 - 110 mmol/L 06/05/2023 10:49 PM EDT [facility] Carbon Dioxide 18(L) 20 - 32 mmol/L 06/05/2023 10:49 PM EDT [facility] Calcium 9.8 8.6 - 10.4 mg/dL 06/05/2023 10:49 PM EDT [facility] Phosphate 3.5 2.5 - 4.5 mg/dL 06/05/2023 10:49 PM EDT [facility] Albumin 4.0 3.6 - 5.1 g/dL 06/05/2023 10:49 PM EDT [facility] Blood Structure of peripheral vein / Unknown 06/05/2023 11:53 AM EDT 06/05/2023 7:56 PM EDT Narrative [facility] - 06/09/2023 5:04 AM EDT FASTING:NO us Anupama Bynum DO LAB BLOOD ORDERABLES Final Resul t [facility] [address] [facility] 3rd Floor, [place] [address], [place] [phone] [facility] [address] [place] [address] from Last 3 Months or Most Recently Relevant to Health Maintenance Insurance * Guarantor: Aneta Gan Account Type Relation to Patient Date of Phone Billing Address Personal/Family Self 1965 [phone] (Work) [address] [place] [address] [facility] * Guarantor: Aneta Gan Account Type Relation to Patient Date of Phone Billing Address Transplant Self 1965 [phone] [facility] [address] [place] [address] Care Teams Maintenance Shop Welder Relationship Specialty Start Date End Date Franklin Sanchez PA [address] [place] [phone] [facility] - General 06/05/23
--- OUTSIDE RECORDS SUMMARY | 2024-11-14 08:00 | XMS_ITS ---
Author Organization [facility] Address [address] [place] [address] Care Team Providers Care Fire Sprinkler Apparatus Inspector Name Role Phone Franklin Sanchez Primary Care Provider [phone] Transplant Episode Kidney Candidate [facility] ([place], [place]) - [place] Referred on 10/23/2024 Marked as Active on 10/30/2024 Reason: Scheduled for Evaluation Kidney CoordinatorZenobia Zepeda RN Email: N/A Scores Score Value Updated Exceptions/Reas ons CPRA Not available EPTS (Calc) 27 11/14/2024 Care Team Name Role Phone Fax Email Zenobia Zepeda RN Kidney Coordinator [phone] N/A Roe Morrissey Referring Physician [phone] N/A Events Pre-Transplant Referred: 10/23/2024 Appointments (10/14/2024 - 12/14/2024) When With Visit Type Description 12/11/2024 Transplant - Jonas Flowers Transpl ant Evaluation Visit 12/11/2024 Transplant - Daniel Sepulveda Transpla nt Evaluation Visit 12/11/2024 Transplant - Rebecca Zepeda Transplant Evaluation Visit 12/11/2024 Transplant Transplant Evalu ation Visit
--- OUTSIDE RECORDS SUMMARY | 2024-11-14 08:00 | XMS_ITS | Clinical Summary ---
Author Organization [facility] Address [address] [place] [address] Care Team Providers Care Planner Internship Name Role Phone Franklin Sanchez Primary Care [...] age to complete this topic Care Teams Planner Internship Relationship Specialty Start Date End Date Franklin Sanchez PA [address] [place] [phone] PCP - General Adult Health - PA/APNP/MAIL PROCESSING CLERK/MARBLE SETTER HELPER 07/20/21
--- OUTSIDE RECORDS SUMMARY | 2024-11-14 08:00 | XMS_ITS | Encounter Summary ---
Author Organization [facility] Address [address] [place] [address] Phone Care Team Providers Care Logistics Operations Manager Name Role Phone Unavailable Primary Care Provider Unavailabl e Encounter Details Date Type Department Care Team (Late st Contact Info) Description 08/10/2022 Telephone [facility] [address] [place] [address] Roe Morrissey MD Social History [...] Iris Gee - 08/10/2022 10:19 AM EST [facility] insurance verification called, pt will need a PA for her truxima infusion that is scheduled for tomorrow. This will need to go through [facility]. documented in this encounter Plan of [...] EDT) Calcium 9.1 8.4 - 10.2 mg/dL [facility] 11/06/2022 4:20 PM EDT 11/06/2022 4:20 PM EDT Roe Morrissey MD LAB BLOOD ORDERABLES Final Res ult Performing Organization Address [facility] Co de Phone Number [place] * (ABNORMAL) Creatinine (11/06/2022 4:20 PM EDT) Creatinine Serum 2.59(H) 0.5 - 1.4 mg/dL [facility] Comment: NOTE: ??For -Hungarian individuals, multiply the result ? by 1.210. Chronic Kidney Disease: ??Estimated GFR < 60 mL/min/1.73m2 Severe Kidney Disease: ??Estimated GFR < 15 mL/min/1.73m2 11/06/2022 4:20 PM EDT 11/06/2022 4:20 PM EDT Roe Morrissey MD LAB BLOOD ORDERABLES Final Res ult Performing Organization Address [facility] Co de Phone Number [place] * (ABNORMAL) BUN (11/06/2022 4:20 PM EDT) BUN 44(H) 9 - 16 mg/dL [facility] 11/06/2022 4:20 PM EDT 11/06/2022 4:20 PM EDT Roe Morrissey MD LAB BLOOD ORDERABLES Final Res ult Performing Organization Address [facility] Co de Phone [...]
--- OUTSIDE RECORDS SUMMARY | 2024-11-14 08:00 | XMS_ITS | Referral Summary ---
Author Organization [facility] Address [address] [place] [address] Care Team Providers Care Probate Lawyer Name Role Phone Franklin Sanchez Primary Care Provider [phone] Encounters Date Type Department Care Team Description 10/30/2024 Telephone [facility] Transplant Department [address] [place] [address] Zenobia Zepeda RN from Last 3 Months [...] Description 12/11/2024 8:00 AM EDT Office Visit [facility] Renal Transplant [address] [place] [address] 12/11/2024 8:30 AM EDT Evaluation [facility] Renal Transplant [address] [place] [address] Zenobia Zepeda RN [address] [place] [address] 12/11/2024 9:30 AM EDT Social Work [facility] Renal Transplant [address] [place] [address] Delores Sepulveda LICSW [address] [place] [address] 12/11/2024 10:15 AM EDT Office Visit [facility] Renal Transplant [address] [place] [address] Franklin Flowers MD [address] [place] [address] Procedures * Due to [place] state law, this organization might not be [...] to Health Maintenance Results * Due to [place] state law, this organization might not be sharing negative HIV tests. * (ABNORMAL) Microalbumin, Random Urine with Creatinine (08/07/2023 9:01 AM EST) Creatinine, Random Urine 92 20 - 275 mg/dL 08/08/2023 6:45 PM EST [facility] Microalbumin 150.8 mg/dL 08/08/2023 6:45 PM EST [facility] Comment: Verified by repeat analysis. Reference Range Not established Microalbumin/Crea tinine Ratio, Random Urine 1,639(H) <30 mcg/mg creat 08/08/2023 6:45 PM EST [facility] Comment: The ADA defines abnormalities in [...] ORDERABLES Final Resul t Performing Organization Address City/[facility]/ZIP Co de Phone Number [facility] [address], [place] [address], [place] [phone] [facility] [address] [place] [address] * (ABNORMAL) Vitamin D, 25-Hydroxy, Total, Immunoassay (06/05/2023 11:53 AM EDT) Calcidiol+ercalc idiol 22(L) 30 - 100 ng/mL 06/05/2023 9:28 PM EDT [facility] Comment: Vitamin D Status ? 25-OH Vitamin D: Deficiency: ?<20 ng/mL Insufficiency: ? 20 - 29 ng/mL Optimal: ? > or = 30 ng/mL For 25-OH Vitamin D testing on patients on D2-supplementation and patients for whom quantitation of D2 and D3 fractions is required, the QuestAssureD(TM) 25-OH VIT D, (D2,D3), LC/MS/MS is recommended: order code 86907 (patients >2yrs). See Note 1 Note 1 For additional information, please refer to http://education.[employer]/faq/CKJ645 (This link is being provided for informational/ educational purposes only.) Blood Structure of peripheral vein / Unknown 06/05/2023 11:53 AM EDT 06/05/2023 7:56 PM EDT Narrative [facility] - 06/09/2023 5:04 AM EDT FASTING:NO us Anupama Bynum DO LAB BLOOD ORDERABLES Final Resul t Performing Organization Address City/[facility]/ZIP Co de Phone Number [facility] [address], [place] [address], [place] [phone] [facility] [address] [place] [address] * (ABNORMAL) CBC (06/05/2023 11:53 AM EDT) White Blood Cell Count 5.9 3.8 - 10.8 Thousand/ uL 06/05/2023 10:37 PM EDT [facility] Red Blood Cell Count 3.82 3.80 - 5.10 Million/u L 06/05/2023 10:37 PM EDT [facility] Hemoglobin 11.4(L) 11.7 - 15.5 g/dL 06/05/2023 10:37 PM EDT [facility] Hematocrit 34.4(L) 35.0 - 45.0 % 06/05/2023 10:37 PM EDT [facility] MCV 90.1 80.0 - 100.0 fL 06/05/2023 10:37 PM EDT [facility] MCH 29.8 27.0 - 33.0 pg 06/05/2023 10:37 PM EDT [facility] MCHC 33.1 32.0 - 36.0 g/dL 06/05/2023 10:37 PM EDT [facility] RDW 12.6 11.0 - 15.0 % 06/05/2023 10:37 PM EDT [facility] Platelet Count 310 140 - 400 Thousand/ uL 06/05/2023 10:37 PM EDT [facility] MPV 11.4 7.5 - 12.5 fL 06/05/2023 10:37 PM EDT [facility] Blood Structure of peripheral vein / Unknown 06/05/2023 11:53 AM EDT 06/05/2023 7:48 PM EDT Narrative [facility] - 06/09/2023 5:04 AM EDT FASTING:NO us Anupama Bynum DO LAB BLOOD ORDERABLES Final Resul t [facility] [address] [facility] 3rd Floor, [place] [address], [facility] [address] [place] [address] * (ABNORMAL) PTH, Intact (without Calcium) (06/05/2023 11:53 AM EDT) Parathyroid Hormone, Intact 205(H) 16 - 77 pg/mL 06/06/2023 1:16 AM EDT [facility] Comment: Interpretive Guide ?Intact PTH ? Calcium [facility] 3[facility] Floor, [place] [address], [place] [phone] [facility] [address] [place] [address] * (ABNORMAL) Renal Function Panel (06/05/2023 11:53 AM EDT) Pathologist [facility] Glucose 89 65 - 139 mg/dL 06/05/2023 10:49 PM EDT [facility] Comment: ? Non-fasting reference interval BUN 39(H) 7 - 25 mg/dL 06/05/2023 10:49 PM EDT [facility] Creatinine 2.61(H) 0.50 - 1.03 mg/dL 06/05/2023 10:49 PM EDT [facility] eGFR 21(L) > OR = 60 mL/min/1. 73m2 06/05/2023 10:49 PM EDT [facility] Bun/Creatinine Ratio 15 6 - 22 (calc) 06/05/2023 10:49 PM EDT [facility] Sodium 137 135 - 146 mmol/L 06/05/2023 10:49 PM EDT [facility] Potassium 4.6 3.5 - 5.3 mmol/L 06/05/2023 10:49 PM EDT [facility] Chloride 111(H) 98 - 110 mmol/L 06/05/2023 10:49 PM EDT [facility] Carbon Dioxide 18(L) 20 - 32 mmol/L 06/05/2023 10:49 PM EDT [facility] Calcium 9.8 8.6 - 10.4 mg/dL 06/05/2023 10:49 PM EDT [facility] Phosphate 3.5 2.5 - 4.5 mg/dL 06/05/2023 10:49 PM EDT [facility] Albumin 4.0 3.6 - 5.1 g/dL 06/05/2023 10:49 PM EDT [facility] Blood Structure of peripheral vein / Unknown 06/05/2023 11:53 AM EDT 06/05/2023 7:56 PM EDT Narrative [facility] - 06/09/2023 5:04 AM EDT FASTING:NO us Anupama Bynum DO LAB BLOOD ORDERABLES Final Resul t [facility] [address] [facility] 3rd Floor, [place] [address], [facility] [address] [place] [address] from Last 3 Months or Most Recently Relevant to Health Maintenance Insurance * Guarantor: Aneta Gan Account Type Relation to Patient Date of Phone Billing Address Personal/Family Self 1965 [phone] (Work) [address] [place] [address] [facility] * Guarantor: Judith Gana Account Type Relation to Patient Date of Phone Billing Address Transplant Self 1965 [phone] (Work) [address] [place] [address] [facility] Care Teams Probate Lawyer Relationship Specialty Start Date End Date Franklin Sanchez PA [address] [place] [address] PCP - General 06/05/23
--- OUTSIDE RECORDS SUMMARY | 2024-11-14 08:00 | XMS_ITS | Clinical Summary ---
Author Organization [facility] Address [address] [place] [address] Phone Care Team Providers Care Child Support Officer Name Role Phone Unavailable Primary Care [...] 03/02/2016 Active ergocalciferol (VITAMIN D-2) 1.25 MG (51507 UT) capsule Take 1 capsule by mouth [...] 2014 Influenza Vaccine (Season Ended) [address] [place] [address] [place] [facility] [place]
[2024-11-14 09:10] LABS: Influenza A PCR NEGATIVE (Negative); Influenza B PCR NEGATIVE (Negative); Resp Syncy Virus RNA Qual PCR NEGATIVE (Negative); SARS COV2 PCR INHOUSE NEGATIVE (Negative)
[2024-11-14 09:30] LABS: Hematocrit 31.5 % (37.0-47.0); Hemoglobin 10.2 g/dl (12.0-16.0); Mean Corpuscular HGB Conc 32.4 g/dl (31.0-35.0); Mean Corpuscular Hemoglobin 30.2 pg (27.0-33.0); Mean Corpuscular Volume 93.2 fL (80.0-98.0); Mean Platelet Volume 10.8 fL (9.4-12.3); Platelet Count 231 X10*3/uL (160-400); Red Blood Count 3.38 X10*6/uL (4.20-5.50); Red Cell Distribution Width 12.7 % (11.0-16.0); White Blood Count 4.5 X10*3/uL (4.8-10.8)
[2024-11-14 09:51] LABS: Appearance Urine Clear; Color Urine Yellow; Glucose Urine UA 100 mg/dL (Negative); Leukocyte Esterase Urine Negative (Negative); Nitrite Urine Negative (Negative); Specific Gravity - Urine 1.015 (1.005-1.025); UMIC TRIGGER UACC YES; Urine Blood Moderate (2+) (Negative); Urine Ketones Negative (Negative); Urine Protein 300 (3+) mg/dL (Neg-Trace)
[2024-11-14 09:57] LABS: Bacteria Urine None Seen (None Seen); Hyaline Casts Urine 0-2 /LPF (0-2); Squamous Epithelial Cell Urine 0-2 /HPF (0-2); WBC Urine 0-5 /HPF (0-5)
[2024-11-14 10:07] LABS: Alanine Aminotransferase 28 U/L (0-31); Albumin Level 3.8 g/dL (3.5-5.0); Alkaline Phosphatase 54 U/L (39-117); Anion Gap 11 (12-20); Aspartate Amino Transferase 33 U/L (5-31); Bilirubin Total 0.5 mg/dL (0.0-1.0); Blood Urea Nitrogen 56 mg/dL (9-16); Calcium 9.5 mg/dL (8.4-10.2); Carbon Dioxide 18 mmol/L (22-29); Chloride 118 mmol/L (96-108); Cholesterol 167 mg/dL (<200); Estimated Glomerular Filt Rate 13; Glucose Fasting 99 mg/dL (60-99); Glucose Random 99 mg/dL (60-115); HDL Cholesterol 24 mg/dL (>40); LDL Cholesterol Calculated 94 mg/dL (<100); Phosphorus 4.3 mg/dL (2.7-4.5); Sodium 143 mmol/L (135-145); Total Protein 7.5 g/dL (6.5-8.0); Triglycerides 247 mg/dL (<150)
[2024-11-14 10:08] LABS: Erythrocyte Sedimentation Rate 77 MM/HR (0-20)
[2024-11-14 10:19] LABS: Parathyroid Hormone Intact 277.8 pg/mL (8.7-77.1)
[2024-11-14 10:22] LABS: Anion Gap 10 (12-20); Blood Urea Nitrogen 55 mg/dL (9-16); Calcium 9.5 mg/dL (8.4-10.2); Carbon Dioxide 18 mmol/L (22-29); Chloride 118 mmol/L (96-108); Estimated Glomerular Filt Rate 13; Glucose Random 97 mg/dL (60-115); Sodium 142 mmol/L (135-145)
[2024-11-14 10:30] LABS: TSH reflex Free T4 2.52 uIU/mL (0.32-4.0); Vitamin D 25-OH Total 25.7 ng/mL (>30)
[2024-11-17 15:43] LABS: CRP High Sensitivity 11.7 mg/L
== END 2024-11-14 07:58 | disposition home or self-care (01) ==
LOC: HO.LAB 07:57
PROVIDERS: Absent Provider Internal Medicine Hypertension Specialist; PCP Physician Assistant; Visit Provider Physician Assistant
DX: N18.4 Chronic kidney disease, stage 4 (severe) (principal); E78.1 Pure hyperglyceridemia; R50.9 Fever, unspecified; E03.8 Other specified hypothyroidism; E06.3 Autoimmune thyroiditis; E55.9 Vitamin D deficiency, unspecified; R30.0 Dysuria
CPT/HCPCS: 0241U; 36415; 80048; 80053; 80061; 81001; 82306; 83970; 84100; 84443; 85027; 85652; 86141

== ENCOUNTER 2024-11-27 15:26 | Outpatient (AMB) | payer OTHER, MEDICAID, SELFPAY ==
--- NOTE | 2024-11-27 15:25 | HO.NEPHOV_ITS ---
Vital Signs 11/27/24 15:26 Height 5 ft Weight 139 lb 4 oz BMI 27.2 BP 138/86 Blood Pressure Location Rt brachial Position Sitting Pulse 96 Pulse Source Pulse Oximeter Pulse Oximetry (%) 100 Oxygen Delivery Method Room Air Intake Visit Reasons: CKD/ LVM Allergies rituximab [From Rituxan] Allergy (Severe, Verified 11/27/24 15:26) Anaphylaxis cephalexin [From Keflex] Allergy (Unknown, Verified 11/27/24 15:26) RED+ITCHY,RASH Cephalosporins [CEPHALOSPORINS] Allergy (Unknown, Verified 11/27/24 15:26) RED+ITCHY Sulfa (Sulfonamide Antibiotics) [SULFA(SULFONAMIDE ANTIBIOTICS)] Allergy (Unknown, Verified 11/27/24 15:26) RED+ITCHY mycophenolate mofetil [From CellCept] Adverse Reaction (Intermediate, Verified 11/27/24 15:26) rash cellcept Allergy (Severe, Uncoded 11/27/24 15:26) Hives retuxin Adverse Reaction (Severe, Uncoded 11/27/24 15:26) Abdominal Pain Medication List - Last Reconciled 11/27/24 by Roe Morrissey MD atorvastatin 20 mg PO BEDTIME 30 days calcitriol 0.25 mcg PO DAILY clobetasol 0.05% 1 appl topical DAILY fluocinonide 0.05% appl topical gabapentin 200 mg PO DAILY PRN levothyroxine 100 mcg PO DAILY lisinopril 2.5 mg PO DAILY loratadine 10 mg PO DAILY PRN magnesium oxide 250 mg PO BID sodium bicarbonate 650 mg PO BID warfarin 5 mg See Protocol PO DAILY HPI Comments Details: Dyazide 58-year-old man with history of SLE. She has chronic kidney disease. In 2001, she had a kidney biopsy which showed membranous nephropathy. She was treated with Cytoxan and prednisone and obtain remission. She would relapsed again and was treated with mycophenolate followed by active but she did not tolerate these medications and she refused treatment. She did receive a dose of Rituxan in early August 2022 and subsequently did not want further treatment due to perceived side effects. 12/10/23: Doing well today ;Waiting for Benlysta 03/25/24 ;Insurance did not cover Benlysta ; Now she is on Cellcept 06/17/24 ;Off Cellcept; on prednisone 2.5mg ; No new issues 09/25/24 ;Recently had COVID ;Feels tired [facility] Medical History Prediabetes SLE glomerulonephritis syndrome History of pulmonary embolism Vitamin D deficiency Hypertriglyceridemia Hypothyroidism Surgical History Hx of tubal ligation Family History Father Family history unknown Mother Hypertension Diabetes Deep vein thrombosis CVA (cerebral vascular accident) Brother CVA (cerebral vascular accident), Onset Age: 48 Brother CVA (cerebral vascular accident), Onset Age: 38 Social History Household Members: None Housing: House Alcohol intake: former Patient Tobacco Use Status: Former Tobacco user Tobacco use type: Cigarette e-Cigarette/Vaping Use: Never Used Second Hand Smoke Exposure: Yes service: No Current occupational status: employed 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 Cognitive needs: No Hearing needs: No Vision needs: No Physical Exam Vital Signs: Last Vital Signs Pulse 96 11/27/24 15:26 BP 138/86 11/27/24 15:26 Pulse Ox 100 11/27/24 15:26 Oxygen Delivery Method Room Air 11/27/24 15:26 BMI result Body Mass Index 27.2 Const General: comfortable; No acute distress Orientation/consciousness: patient oriented x3 Eyes General: appearance normal, both eyes and all related structures Visual Penaloza: normal visual penaloza by confrontation Neck Neck: Yes supple and Yes no JVD Resp Effort & Inspection: normal respiratory effort and respiratory effort not decreased Auscultation: rhonchi Cardio Palpation: no palpable S3 and no palpable S4 Heart sounds: no rubs GI Inspection: Yes normal to inspection Palpation (GI): Soft to palpation Percussion: Yes normal to percussion Auscultation: normal bowel sounds General: Yes no CVA tenderness Back/Spine/Pelvis Back: no CVA tenderness Skin General skin exam: no petechiae and no purpura Neuro General: patient oriented x3 and no focal motor deficits Extrem General: No clubbing and No edema Results Reviewed Nephrology Results: Hgb 10.2 g/dl (12.0-16.0) L 11/14/24 WBC 4.5 X10*3/uL (4.8-10.8) L 11/14/24 Plt Count 231 X10*3/uL (160-400) 11/14/24 Sodium 142 mmol/L (135-145) 11/14/24 Potassium 4.0 mmol/L (3.3-5.1) 11/14/24 Chloride 118 mmol/L (96-108) H 11/14/24 Carbon Dioxide 18 mmol/L (22-29) L 11/14/24 BUN 55 mg/dL (9-16) H 11/14/24 Creatinine 3.64 mg/dL (0.5-1.4) H 11/14/24 Calcium 9.5 mg/dL (8.4-10.2) 11/14/24 Phosphorus 4.3 mg/dL (2.7-4.5) 11/14/24 PTH Intact 277.8 pg/mL (8.7-77.1) H 11/14/24 Urine Protein 300 (3+) mg/dL (Neg-Trace) H 11/14/24 Assessment & Plan Assessment & Plan (1) CKD (chronic kidney disease) stage 4, GFR 15-29 ml/min: Code(s): N18.4 - Chronic kidney disease, stage 4 (severe) Category: Medical Plan: Due to underlying lupus nephropathy. Advanced CKD No signs or symptoms of uremia. No absolute indication to start her on renal replacement therapy yet. 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 Mild anemia in the setting of lupus and CKD. No indication for Epogen yet. We will screen for secondary hyperparathyroidism. Maintain blood pressure less than 130/80. Continue to avoid nephrotoxic agents including NSAIDs. Hypercalcemia - Decreased Calcitriol CA BACK TO NORMAL Watch PTH Decrease Calcium supplementation from 600mg BID to QD Advanced CKD approaching ESRD renal transplant evaluation [facility] . (2) Lupus (systemic lupus erythematosus): Comment: onset 6027-0995 Treated with Cytoxan and prednisone Coumadin throughout Cyclosporin 2005 DC due to epigastric pain CellCept 2008 up titrated to 3 g daily, developed worsening proteinuria Rituximab 2 doses, 2 weeks apart 2010 Believes that she took hydroxychloroquine and discontinued it due to tinnitus ?! Benlysta 02/2012 was helpful especially for skin lesions. Discontinued due to loss of insurance Acthar gel 2016 took it for about a year inconsistently Repeat kidney biopsy 04/2022 showed class 3 and 5 nephritis. Received 1 dose of rituximab 08/2022 with some improvement Benlysta 12/2023. DC 02/2024. Could not afford co-pay CellCept tried again 02/2024. DC'd after 1 dose due to rash Code(s): M32.9 - Systemic lupus erythematosus, unspecified Category: Medical Qualifiers: Systemic lupus erythematosus organ involvement: glomerular disease Systemic lupus erythematosus type: other Qualified Code(s): M32.14 - Glomerular disease in systemic lupus erythematosus (3) SLE glomerulonephritis syndrome: Comment: onset 2282-6890 class 3 and class 5 nephritis, low C3, low C4 Repeat kidney biopsy 04/2022 showed class 3 and 5 nephritis. Received 1 dose of rituximab 08/2022 with some improvement Code(s): M32.14 - Glomerular disease in systemic lupus erythematosus Category: Medical Plan: Unable to tolerate Cyclosporin/CEllcept/Rituxan Plan . Orders: Orders Basic Metabolic Panel 3 Months N18.4 - Chronic kidney disease, stage 4 (severe) Complete Blood Count no Diff 3 Months N18.4 - Chronic kidney disease, stage 4 (severe) Medications: New prednisone 2.5 mg PO DAILY 90 tabs 1RF Coding Level of Care Code Est Pt Level 4 (67892) Diagnoses CKD (chronic kidney disease) stage 4, GFR 15-29 ml/min N18.4 Other systemic lupus erythematosus with glomerular disease M32.14 Systemic lupus erythematosus organ involvement: glomerular disease Systemic lupus erythematosus type: other SLE glomerulonephritis syndrome M32.14
[2024-11-27 15:26] VITALS: BP 138/86; PULSE 96; O2SAT 100; BMI 27.2
--- OUTSIDE RECORDS SUMMARY | 2024-11-27 18:08 | XMS_ITS | Clinical Summary ---
Author Organization [facility] Address [address] [place] [address] Care Team Providers Care Hydro Excavation Operator Name Role Phone Franklin Sanchez Primary Care Provider + Active Problems Problem Noted Date Diagnosed Date Vitamin D deficiency 07/11/2021 Social History Tobacco Use Types Packs/Day Years Used Date Smoking Tobacco: Never Assessed Comments Unknown Sex and Gender Information Value Date Recorded Sex Assigned at Not on file Legal Sex Female 6:50 PM EST Gender Identity Not on file Sexual Orientation Not on file Plan of Treatment Health Maintenance Due Date Last Done Comments Hepatitis C Virus Screening 1965 HIV Screening 1978 DTaP/Tdap/Td Vaccines (1 - Tdap) 1984 Hepatitis B Vaccines (1 of 3 - 19+ 3-dose series) 03/1984 Pap Smear (Ages 21-65) 1986 Mammogram 2005 Colonoscopy 2010 Pneumococcal Vaccines 50+ (1 of 1 - PCV) 2015 Zoster (Shingles) Vaccine (1 of 2) 2015 Influenza Vaccine 03/06/2024 COVID-19 Vaccine (1 - 2023-25 season) 2024 [place] [id number] [facility] Care Teams Hydro Excavation Operator Relationship Specialty Start Date End Date Franklin Sanchez PA [facility] [place] [address] PCP - General Adult Health - PA/APNP/RN GYNECOLOGY/COMPLIANCE ENGINEER 07/20/21
--- OUTSIDE RECORDS SUMMARY | 2024-11-27 18:08 | XMS_ITS | Clinical Summary ---
Author Organization [facility] Address [address] [place] [address] Care Team Providers Care Pin Sorter And Bagger Name Role Phone Franklin Sanchez Primary Care Provider [phone] Allergies Active Allergy Reactions Criticality Noted Date [...] Type Department Care Team Description 10/30/2024 Telephone [facility] Transplant Department [address] [place] [address] Zenobia Zepeda RN from Last [...] Description 12/11/2024 8:00 AM EDT Office Visit [facility] Renal Transplant [address] [place] [address] 12/11/2024 8:30 AM EDT Evaluation [facility]al Transplant [address] [place] [address] Zenobia Zepeda RN [address] [place] [address] 12/11/2024 9:30 AM EDT Social Work [facility]al Transplant [address] [place] [address] Delores Sepulveda LICSW [address] [place] [address] 12/11/2024 10:15 AM EDT Office Visit [facility] Renal Transplant [address] [place] [address] Franklin Flowers MD [address] [place] [address] Health Maintenance Due Date Last Done Comments [...] Additional history exists Procedures * Due to [place] state law, this organization might not be [...] Maintenance Results * Due to [place] state law, this organization might not be sharing negative HIV tests. * (ABNORMAL) Microalbumin, Random Urine with Creatinine (08/07/2023 9:01 AM EST) Creatinine, Random Urine 92 20 - 275 mg/dL 08/08/2023 6:45 PM EST [employer] Microalbumin 150.8 mg/dL 08/08/2023 6:45 PM EST [facility] Comment: Verified by repeat analysis. Reference Range Not established Microalbumin/Crea tinine Ratio, Random Urine 1,639(H) <30 mcg/mg creat 08/08/2023 6:45 PM EST [facility] Comment: The ADA defines abnormalities in [...] ORDERABLES Final Resul t [facility] [address], [place] [address], [place] [phone] [employer] [facility] [address] [place] [address] * (ABNORMAL) Vitamin D, 25-Hydroxy, Total, Immunoassay (06/05/2023 11:53 AM EDT) [facility] Calcidiol+ercalc idiol 22(L) 30 - 100 ng/mL 06/05/2023 9:28 PM EDT [employer] [facility] Comment: Vitamin D Status ? 25-OH Vitamin D: Deficiency: ?<20 ng/mL Insufficiency: ? 20 - 29 ng/mL Optimal: ? > or = 30 ng/mL For 25-OH Vitamin D testing on patients on D2-supplementation and patients for whom quantitation of D2 and D3 fractions is required, the QuestAssureD(TM) 25-OH VIT D, (D2,D3), LC/MS/MS is recommended: order code 16661 (patients >2yrs). See Note 1 Note 1 For additional information, please refer to http://education.[employer]/faq/JAE782 (This link is being provided for informational/ educational purposes only.) Blood Structure of peripheral vein / Unknown 06/05/2023 11:53 AM EDT 06/05/2023 7:56 PM EDT Narrative [facility] - 06/09/2023 5:04 AM EDT FASTING:NO us Anupama Bynum DO LAB BLOOD ORDERABLES Final Resul t [facility] [address], [place] [address], [place] [phone] [employer] [facility] [address] [place] [address] * (ABNORMAL) CBC (06/05/2023 11:53 AM EDT) White Blood Cell Count 5.9 3.8 - 10.8 Thousand/ uL 06/05/2023 10:37 PM EDT [employer] [facility] Red Blood Cell Count 3.82 3.80 - 5.10 Million/u L 06/05/2023 10:37 PM EDT [employer] [facility] Hemoglobin 11.4(L) 11.7 - 15.5 g/dL 06/05/2023 10:37 PM EDT [employer] [facility] Hematocrit 34.4(L) 35.0 - 45.0 % 06/05/2023 10:37 PM EDT [employer] [facility] MCV 90.1 80.0 - 100.0 fL 06/05/2023 10:37 PM EDT [employer] [facility] MCH 29.8 27.0 - 33.0 pg 06/05/2023 10:37 PM EDT [employer] [facility] MCHC 33.1 32.0 - 36.0 g/dL 06/05/2023 10:37 PM EDT [employer] [facility] RDW 12.6 11.0 - 15.0 % 06/05/2023 10:37 PM EDT [employer] [facility] Platelet Count 310 140 - 400 Thousand/ uL 06/05/2023 10:37 PM EDT [employer] [facility] MPV 11.4 7.5 - 12.5 fL 06/05/2023 10:37 PM EDT [employer] [facility] Blood Structure of peripheral vein / Unknown 06/05/2023 11:53 AM EDT 06/05/2023 7:48 PM EDT Narrative [facility] - 06/09/2023 5:04 AM EDT FASTING:NO Anupama Bynum DO LAB BLOOD ORDERABLES Final Resul t [facility] [address] [facility] 3rd Floor, [place] [address], [employer] [facility] [address] [place] [address] * (ABNORMAL) PTH, Intact (without Calcium) (06/05/2023 11:53 AM EDT) Parathyroid Hormone, Intact 205(H) 16 - 77 pg/mL 06/06/2023 1:16 AM EDT [employer] Comment: Interpretive Guide ?Intact PTH ? Calcium [...] ORDERABLES Final Resul t [facility] [address] [facility] [address] Floor, [place] [address], [employer] [address] [place] [address] * (ABNORMAL) Renal Function Panel (06/05/2023 11:53 AM EDT) Glucose 89 65 - 139 mg/dL 06/05/2023 10:49 PM EDT [employer] Comment: ? Non-fasting reference interval BUN 39(H) 7 - 25 mg/dL 06/05/2023 10:49 PM EDT [employer] Creatinine 2.61(H) 0.50 - 1.03 mg/dL 06/05/2023 10:49 PM EDT [employer] [facility] eGFR 21(L) > OR = 60 mL/min/1. 73m2 06/05/2023 10:49 PM EDT [employer] [facility] Bun/Creatinine Ratio 15 6 - 22 (calc) 06/05/2023 10:49 PM EDT [employer] [facility] Sodium 137 135 - 146 mmol/L 06/05/2023 10:49 PM EDT [employer] [facility] Potassium 4.6 3.5 - 5.3 mmol/L 06/05/2023 10:49 PM EDT [employer] [facility] Chloride 111(H) 98 - 110 mmol/L 06/05/2023 10:49 PM EDT [employer] [facility] Carbon Dioxide 18(L) 20 - 32 mmol/L 06/05/2023 10:49 PM EDT [employer] [facility] Calcium 9.8 8.6 - 10.4 mg/dL 06/05/2023 10:49 PM EDT [employer] [facility] Phosphate 3.5 2.5 - 4.5 mg/dL 06/05/2023 10:49 PM EDT [employer] [facility] Albumin 4.0 3.6 - 5.1 g/dL 06/05/2023 10:49 PM EDT [employer] [facility] Blood Structure of peripheral vein / Unknown 06/05/2023 11:53 AM EDT 06/05/2023 7:56 PM EDT Narrative [facility] - 06/09/2023 5:04 AM EDT FASTING:NO us Anupama Bynum DO LAB BLOOD ORDERABLES Final Resul t [facility] [address] [facility] 3rd Floor, [place] [address], [place] [phone] [employer] [facility] [address] [place] [address] from Last 3 Months or Most Recently Relevant to Health Maintenance Insurance * Guarantor: Aneta Gan Account Type Relation to Patient Date of Phone Billing Address Personal/Family Self 1965 [phone] (Work) [address] [place] [address] [facility] * Guarantor: Aneta Gan Account Type Relation to Patient Date of Phone Billing Address Transplant Self 1965 [phone] [address] [place] [id number] Care Teams Pin Sorter And Bagger Relationship Specialty Start Date End Date Franklin Sanchez PA [address] [place] [phone] [facility] - General 06/05/23
--- OUTSIDE RECORDS SUMMARY | 2024-11-27 18:08 | XMS_ITS | Encounter Summary ---
Author Organization [facility] Address [address] [place] [address] Phone Care Team Providers Care Swaging Machine Operator Name Role Phone Unavailable Primary Care Provider Unavailabl e Encounter Details Date Type Department Care Team (Late st Contact Info) Description 08/10/2022 Telephone [facility] [address] [place] [address] Roe Morrissey MD Social History [...] Iris Gee - 08/10/2022 10:19 AM EST [facility] insurance verification called, pt will need a PA for her truxima infusion that is scheduled for tomorrow. This will need to go through [facility]. documented in this encounter Plan of Treatment [...] ORDERABLES Final Res ult Performing Organization Address [facility] Co de Phone Number [place] * (ABNORMAL) Creatinine (11/06/2022 4:20 PM EDT) Creatinine Serum 2.59(H) 0.5 - 1.4 mg/dL [facility] e[facility] Comment: NOTE: ??For -[place] individuals, multiply the result ? by 1.210. Chronic Kidney Disease: ??Estimated GFR < 60 mL/min/1.73m2 Severe Kidney Disease: ??Estimated GFR < 15 mL/min/1.73m2 11/06/2022 4:20 PM EDT 11/06/2022 4:20 PM EDT Roe Morrissey MD LAB BLOOD ORDERABLES Final Res ult Performing Organization Address [facility] Co de Phone Number [place] * (ABNORMAL) BUN (11/06/2022 4:20 PM EDT) BUN 44(H) 9 - 16 mg/dL [place] 11/06/2022 4:20 PM EDT 11/06/2022 4:20 PM EDT Roe Morrissey MD LAB BLOOD ORDERABLES Final Res ult Performing Organization Address [facility] Co de Phone Number [place] [...]
--- OUTSIDE RECORDS SUMMARY | 2024-11-27 18:08 | XMS_ITS ---
Author Organization [facility] Address [address] [place] [address] Care Team Providers Care Collar Tailor Name Role Phone Franklin Sanchez Primary Care Provider [phone] Transplant Episode Kidney Candidate [facility] ([place], [place]) - [place] Referred on 10/23/2024 Marked as Active on 10/30/2024 Reason: Scheduled for Evaluation Kidney CoordinatorZenobia Zepeda RN Email: N/A Scores Score Value Updated Exceptions/Reas ons CPRA Not available EPTS (Calc) 27 11/27/2024 Care Team Name Role Phone Fax Email Zenobia Zepeda RN Kidney Coordinator [phone] N/A Roe Morrissey Referring Physician [phone] N/A Events Pre-Transplant Referred: 10/23/2024 Appointments (10/27/2024 - 12/27/2024) When With Visit Type Description 12/11/2024 Transplant - Jonas Flowers Transpl ant Evaluation Visit 12/11/2024 Transplant - Daniel Sepulveda Transpla nt Evaluation Visit 12/11/2024 Transplant - Rebecca Zepeda Transplant Evaluation Visit 12/11/2024 Transplant Transplant Evalu ation Visit
--- OUTSIDE RECORDS SUMMARY | 2024-11-27 18:08 | XMS_ITS | Clinical Summary ---
Author Organization [facility] Address [address] [place] [address] Phone Care Team Providers Care Hospitalist Nocturnist Physician Name Role Phone Unavailable Primary Care Provider [...] 03/02/2016 Active ergocalciferol (VITAMIN D-2) 1.25 MG (07492 UT) capsule Take 1 capsule by mouth [...] Last Done Comments Breast Cancer Screening 1965 Hepatitis B Vaccine (1 of 3 - 19+ 3-dose series) 07/13 Pneumococcal Vaccine: 50+ Years (1 of 2 - PCV) 984 Colorectal Cancer Screening: Annual FOBT 2014 Colorectal Cancer Screening: Colonoscopy 2014 Colorectal Cancer Screening: Sigmoidoscopy 2014 Influenza Vaccine (Season Ended) 2025 Insurance [facility] Medicaid [place] [facility] [place]
--- OUTSIDE RECORDS SUMMARY | 2024-11-27 18:08 | XMS_ITS | Referral Summary ---
Author Organization [facility] Address [address] [place] [address] Care Team Providers Care Bag Maker Name Role Phone Franklin Sanchez Primary Care Provider [phone] Encounters Date Type Department Care Team Description 10/30/2024 Telephone [facility] Transplant Department [address] [place] [address] Zenobia Zepeda RN from Last 3 Months [...] Description 12/11/2024 8:00 AM EDT Office Visit [facility] Renal Transplant [address] [place] [address] 12/11/2024 8:30 AM EDT Evaluation [facility] Renal Transplant [address] [place] [address] Zenobia Zepeda RN [address] [place] [address] 12/11/2024 9:30 AM EDT Social Work [facility] Renal Transplant [address] [place] [address] Delores Sepulveda LICSW [address] [place] [address] 12/11/2024 10:15 AM EDT Office Visit [facility] Renal Transplant [address] [place] [address] Franklin Flowers MD [address] [place] [address] Procedures * Due to [place] state law, [...] - 275 mg/dL 08/08/2023 6:45 PM EST [facility] Microalbumin 150.8 mg/dL 08/08/2023 6:45 PM EST [facility] [employer] [facility] Comment: Verified by repeat analysis. Reference Range Not established Microalbumin/Crea tinine Ratio, Random Urine 1,639(H) <30 mcg/mg creat 08/08/2023 6:45 PM EST [facility] [employer] [facility] Comment: The ADA defines abnormalities in albumin [...] ORDERABLES Final Resul t Performing Organization Address City/[facility]/ZIP Co de Phone Number [facility] [address], [place] [address], [place] [phone] [facility] [address] [place] [address] * (ABNORMAL) Vitamin D, 25-Hydroxy, Total, Immunoassay (06/05/2023 11:53 AM EDT) Calcidiol+ercalc idiol 22(L) 30 - 100 ng/mL 06/05/2023 9:28 PM EDT [facility] Comment: Vitamin D Status ? 25-OH Vitamin D: Deficiency: ?<20 ng/mL Insufficiency: ? 20 - 29 ng/mL Optimal: ? > or = 30 ng/mL For 25-OH Vitamin D testing on patients on D2-supplementation and patients for whom quantitation of D2 and D3 fractions is required, the QuestAssureD(TM) 25-OH VIT D, (D2,D3), LC/MS/MS is recommended: order code 62142 (patients >2yrs). See Note 1 Note 1 For additional information, please refer to http://education.Maktoob/faq/LNR037 (This link is being provided for informational/ educational purposes only.) Blood Structure of peripheral vein / Unknown 06/05/2023 11:53 AM EDT 06/05/2023 7:56 PM EDT Narrative [facility] - 06/09/2023 5:04 AM EDT FASTING:NO us Anupama Bynum DO LAB BLOOD ORDERABLES Final Resul t Performing Organization Address City/[facility]/ZIP Co de Phone Number [facility] [address], [place] [address], [place] [phone] [facility] [employer] [facility] [address] [place] [address] * (ABNORMAL) CBC (06/05/2023 11:53 AM EDT) White Blood Cell Count 5.9 3.8 - 10.8 Thousand/ uL 06/05/2023 10:37 PM EDT [facility] Red Blood Cell Count 3.82 3.80 - 5.10 Million/u L 06/05/2023 10:37 PM EDT [facility] Hemoglobin 11.4(L) 11.7 - 15.5 g/dL 06/05/2023 10:37 PM EDT [facility] Hematocrit 34.4(L) 35.0 - 45.0 % 06/05/2023 10:37 PM EDT [facility] MCV 90.1 80.0 - 100.0 fL 06/05/2023 10:37 PM EDT [facility] MCH 29.8 27.0 - 33.0 pg 06/05/2023 10:37 PM EDT [facility] MCHC 33.1 32.0 - 36.0 g/dL 06/05/2023 10:37 PM EDT [facility] RDW 12.6 11.0 - 15.0 % 06/05/2023 10:37 PM EDT [facility] Platelet Count 310 140 - 400 Thousand/ uL 06/05/2023 10:37 PM EDT [facility] MPV 11.4 7.5 - 12.5 fL 06/05/2023 10:37 PM EDT [facility] Blood Structure of peripheral vein / Unknown 06/05/2023 11:53 AM EDT 06/05/2023 7:48 PM EDT Narrative [facility] - 06/09/2023 5:04 AM EDT FASTING:NO us Anupama Bynum DO LAB BLOOD ORDERABLES Final Resul t [facility] [address] [facility] 3rd Floor, [place] [address], [facility] [employer] [facility] [address] [place] [address] * (ABNORMAL) PTH, Intact (without Calcium) (06/05/2023 11:53 AM EDT) Parathyroid Hormone, Intact 205(H) 16 - 77 pg/mL 06/06/2023 1:16 AM EDT [facility] Comment: Interpretive Guide ?Intact PTH ? Calcium [facility] [address] Floor, [place] [address], [place] [phone] [facility] [address] [place] [address] * (ABNORMAL) Renal Function Panel (06/05/2023 11:53 AM EDT) Pathologist [facility] Glucose 89 65 - 139 mg/dL 06/05/2023 10:49 PM EDT [facility] Comment: ? Non-fasting reference interval BUN 39(H) 7 - 25 mg/dL 06/05/2023 10:49 PM EDT [facility] Creatinine 2.61(H) 0.50 - 1.03 mg/dL 06/05/2023 10:49 PM EDT [facility] eGFR 21(L) > OR = 60 mL/min/1. 73m2 06/05/2023 10:49 PM EDT [facility] Bun/Creatinine Ratio 15 6 - 22 (calc) 06/05/2023 10:49 PM EDT [facility] Sodium 137 135 - 146 mmol/L 06/05/2023 10:49 PM EDT [facility] Potassium 4.6 3.5 - 5.3 mmol/L 06/05/2023 10:49 PM EDT [facility] Chloride 111(H) 98 - 110 mmol/L 06/05/2023 10:49 PM EDT [facility] Carbon Dioxide 18(L) 20 - 32 mmol/L 06/05/2023 10:49 PM EDT [facility] Calcium 9.8 8.6 - 10.4 mg/dL 06/05/2023 10:49 PM EDT [facility] Phosphate 3.5 2.5 - 4.5 mg/dL 06/05/2023 10:49 PM EDT [facility] Albumin 4.0 3.6 - 5.1 g/dL 06/05/2023 10:49 PM EDT [facility] [employer] [facility] Blood Structure of peripheral vein / Unknown 06/05/2023 11:53 AM EDT 06/05/2023 7:56 PM EDT Narrative [facility] - 06/09/2023 5:04 AM EDT FASTING:NO us Anupama Bynum DO LAB BLOOD ORDERABLES Final Resul t [facility] [address] [facility] 3rd Floor, [place] [address], [facility] [facility] [address] [place] [address] from Last 3 Months or Most Recently Relevant to Health Maintenance Insurance * Guarantor: Aneta Gan Account Type Relation to Patient Date of Phone Billing Address Personal/Family Self 1965 [phone] (Work) [address] [place] [address] [facility] * Guarantor: Judith Gana Account Type Relation to Patient Date of Phone Billing Address Transplant Self 1965 [phone] (Work) [address] [place] [address] [facility] Care Teams Bag Maker Relationship Specialty Start Date End Date Franklin Sanchez PA [address] [place] [address] PCP - General 06/05/23
== END 2024-11-27 15:41 | disposition home or self-care (01) ==
LOC: HO.HKA 15:27
PROVIDERS: PCP Physician Assistant; Visit Provider Internal Medicine Hypertension Specialist
DX: N18.4 Chronic kidney disease, stage 4 (severe) (principal); M32.14 Glomerular disease in systemic lupus erythematosus
CPT/HCPCS: 99214

== ENCOUNTER → 2024-11-27 15:26 | Outpatient (BNVA) | payer OTHER, MEDICAID, SELFPAY | PROVIDERS: PCP Physician Assistant; Visit Provider Internal Medicine Hypertension Specialist ==

== ENCOUNTER 2024-11-28 15:36 | Outpatient (AMB) | payer OTHER, MEDICAID, SELFPAY ==
[2024-11-28 15:41] LABS: Prothrombin Time Whole Bld POC 31.6 sec (11.1-13.5); ~PT, ~INR - Anti Coag Clinic 2.6 (0.9-1.1)
--- NOTE | 2024-11-28 15:41 | MHC.OFFVISCO ---
Intake Intake Visit Reasons: Anticoagulation Allergies rituximab [From Rituxan] Allergy (Severe, Verified 11/28/24 15:52) Anaphylaxis cephalexin [From Keflex] Allergy (Unknown, Verified 11/28/24 15:52) RED+ITCHY,RASH Cephalosporins [CEPHALOSPORINS] Allergy (Unknown, Verified 11/28/24 15:52) RED+ITCHY Sulfa (Sulfonamide Antibiotics) [SULFA(SULFONAMIDE ANTIBIOTICS)] Allergy (Unknown, Verified 11/28/24 15:52) RED+ITCHY mycophenolate mofetil [From CellCept] Adverse Reaction (Intermediate, Verified 11/28/24 15:52) rash cellcept Allergy (Severe, Uncoded 11/28/24 15:52) Hives retuxin Adverse Reaction (Severe, Uncoded 11/28/24 15:52) Abdominal Pain Medication List - Last Reconciled 11/28/24 by Shana Allen RN atorvastatin 20 mg PO BEDTIME 30 days calcitriol 0.25 mcg PO DAILY clobetasol 0.05% 1 appl topical DAILY fluocinonide 0.05% appl topical gabapentin 200 mg PO DAILY PRN levothyroxine 100 mcg PO DAILY lisinopril 2.5 mg PO DAILY loratadine 10 mg PO DAILY PRN magnesium oxide 250 mg PO BID prednisone 2.5 mg PO DAILY sodium bicarbonate 650 mg PO BID warfarin 5 mg See Protocol PO DAILY Nursing Note INR: 2.6- in therapeutic range of 2-3 Medications and supplements reviewed- resuming prednisone 2.5mg dly No changes in health, diet, medications, or supplements, Denies any signs and symptoms of bleeding or bruising or clotting. Bleeding, bruising, clotting discussed Nutritional guidance given Dose: 2.5mg x 7 F/U INR: 2 weeks Patient verbalizes understanding of instructions given pt states she may have upcoming dental proc/implants with bone grafting. aware to ask about holding warfarin prior to proc and will let pcp of upcoming proc, ? 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
--- OUTSIDE RECORDS SUMMARY | 2024-11-28 16:02 | XMS_ITS ---
Author Organization [facility] Address [address] [place] [address] Care Team Providers Care Buffet Waiter/Waitress Name Role Phone Franklin Sanchez Primary Care Provider [phone] Transplant Episode Kidney Candidate [facility] ([place], [place]) - [place] Referred on 10/23/2024 Marked as Active on 10/30/2024 Reason: Scheduled for Evaluation Kidney CoordinatorZenobia Zepeda RN Email: N/A Scores Score Value Updated Exceptions/Reas ons CPRA Not available EPTS (Calc) 27 11/28/2024 Care Team Name Role Phone Fax Email Zenobia Zepeda RN Kidney Coordinator [phone] N/A Roe Morrissey Referring Physician [phone] N/A Events Pre-Transplant Referred: 10/23/2024 Appointments (10/28/2024 - 12/28/2024) When With Visit Type Description 12/11/2024 Transplant - Jonas Flowers Transpl ant Evaluation Visit 12/11/2024 Transplant - Daniel Sepulveda Transpla nt Evaluation Visit 12/11/2024 Transplant - Rebecca Zepeda Transplant Evaluation Visit 12/11/2024 Transplant Transplant Evalu ation Visit
--- OUTSIDE RECORDS SUMMARY | 2024-11-28 16:02 | XMS_ITS | Referral Summary ---
Author Organization [facility] Address [address] [place] [address] Care Team Providers Care Ct Scan Tech Name Role Phone Franklin Sanchez Primary Care Provider [phone] Encounters Date Type Department Care Team Description 10/30/2024 Telephone [facility] Transplant Department [address] [place] [address] Zenobia Zepeda RN from Last 3 Months [...] Description 12/11/2024 8:00 AM EDT Office Visit [facility] Renal Transplant [address] [place] [address] 12/11/2024 8:30 AM EDT Evaluation [facility] Renal Transplant [address] [place] [address] 278[address] Zenobia Zepeda RN [address] [place] [address] 12/11/2024 9:30 AM EDT Social Work [facility] Renal Transplant [address] [place] [address] Delores Sepulveda LICSW [address] [place] [address] 12/11/2024 10:15 AM EDT Office Visit [facility] Renal Transplant [address] [place] [address] Franklin Flowers MD [address] [place] [address] Procedures * Due to [place] state law, this organization might not be [...] to Health Maintenance Results * Due to [place] state law, this organization might not be sharing negative HIV tests. * (ABNORMAL) Microalbumin, Random Urine with Creatinine (08/07/2023 9:01 AM EST) Creatinine, Random Urine 92 20 - 275 mg/dL 08/08/2023 6:45 PM EST [facility] Microalbumin 150.8 mg/dL 08/08/2023 6:45 PM EST [facility] Comment: Verified by repeat analysis. Reference Range Not established Microalbumin/Crea tinine Ratio, Random Urine 1,639(H) <30 mcg/mg creat 08/08/2023 6:45 PM EST [facility] Comment: The ADA defines abnormalities in [...] ORDERABLES Final Resul t Performing Organization Address City/[facility]/ZIP Co de Phone Number [facility] [address], [place] [address], [place] [phone] [facility] [address] [place] [address] * (ABNORMAL) Vitamin D, 25-Hydroxy, Total, Immunoassay (06/05/2023 11:53 AM EDT) Calcidiol+ercalc idiol 22(L) 30 - 100 ng/mL 06/05/2023 9:28 PM EDT [facility] Comment: Vitamin D Status ? 25-OH Vitamin D: Deficiency: ?<20 ng/mL Insufficiency: ? 20 - 29 ng/mL Optimal: ? > or = 30 ng/mL For 25-OH Vitamin D testing on patients on D2-supplementation and patients for whom quantitation of D2 and D3 fractions is required, the QuestAssureD(TM) 25-OH VIT D, (D2,D3), LC/MS/MS is recommended: order code [id number] (patients >2yrs). See Note 1 Note 1 For additional information, please refer to http://education.L[address] Street/faq/HEG600 (This link is being provided for informational/ educational purposes only.) Blood Structure of peripheral vein / Unknown 06/05/2023 11:53 AM EDT 06/05/2023 7:56 PM EDT Narrative [facility] - 06/09/2023 5:04 AM EDT FASTING:NO us Anupama Bynum DO LAB BLOOD ORDERABLES Final Resul t Performing Organization Address City/[facility]/ZIP Co de Phone Number [facility] [address], [place] [address], [place] [phone] [facility] [address] [place] [address] * (ABNORMAL) CBC (06/05/2023 11:53 AM EDT) White Blood Cell Count 5.9 3.8 - 10.8 Thousand/ uL 06/05/2023 10:37 PM EDT [facility] Red Blood Cell Count 3.82 3.80 - 5.10 Million/u L 06/05/2023 10:37 PM EDT [facility] Hemoglobin 11.4(L) 11.7 - 15.5 g/dL 06/05/2023 10:37 PM EDT [facility] Hematocrit 34.4(L) 35.0 - 45.0 % 06/05/2023 10:37 PM EDT [facility] MCV 90.1 80.0 - 100.0 fL 06/05/2023 10:37 PM EDT [facility] MCH 29.8 27.0 - 33.0 pg 06/05/2023 10:37 PM EDT [facility] MCHC 33.1 32.0 - 36.0 g/dL 06/05/2023 10:37 PM EDT [facility] RDW 12.6 11.0 - 15.0 % 06/05/2023 10:37 PM EDT [facility] Platelet Count 310 140 - 400 Thousand/ uL 06/05/2023 10:37 PM EDT [facility] MPV 11.4 7.5 - 12.5 fL 06/05/2023 10:37 PM EDT [facility] Blood Structure of peripheral vein / Unknown 06/05/2023 11:53 AM EDT 06/05/2023 7:48 PM EDT Narrative [facility] - 06/09/2023 5:04 AM EDT FASTING:NO us Anupama Bynum DO LAB BLOOD ORDERABLES Final Resul t [facility] 200 [facility] [address]rd [address], [place] [address], [facility] [address] [place] [address] * (ABNORMAL) PTH, Intact (without Calcium) (06/05/2023 11:53 AM EDT) Parathyroid Hormone, Intact 205(H) 16 - 77 pg/mL 06/06/2023 1:16 AM EDT [facility] Comment: Interpretive Guide ?Intact PTH ? Calcium [...] ORDERABLES Final Resul t [facility] 200 [facility] [address]rd Floor, [place] [address], [place] [phone] [facility] [address] [place] [address] * (ABNORMAL) Renal Function Panel (06/05/2023 11:53 AM EDT) Pathologist [facility] Glucose 89 65 - 139 mg/dL 06/05/2023 10:49 PM EDT [facility] Comment: ? Non-fasting reference interval BUN 39(H) 7 - 25 mg/dL 06/05/2023 10:49 PM EDT [facility] Creatinine 2.61(H) 0.50 - 1.03 mg/dL 06/05/2023 10:49 PM EDT [facility] eGFR 21(L) > OR = 60 mL/min/1. 73m2 06/05/2023 10:49 PM EDT [facility] Bun/Creatinine Ratio 15 6 - 22 (calc) 06/05/2023 10:49 PM EDT [facility] Sodium 137 135 - 146 mmol/L 06/05/2023 10:49 PM EDT [facility] Potassium 4.6 3.5 - 5.3 mmol/L 06/05/2023 10:49 PM EDT [facility] Chloride 111(H) 98 - 110 mmol/L 06/05/2023 10:49 PM EDT [facility] Carbon Dioxide 18(L) 20 - 32 mmol/L 06/05/2023 10:49 PM EDT [facility] Calcium 9.8 8.6 - 10.4 mg/dL 06/05/2023 10:49 PM EDT [facility] Phosphate 3.5 2.5 - 4.5 mg/dL 06/05/2023 10:49 PM EDT [facility] Albumin 4.0 3.6 - 5.1 g/dL 06/05/2023 10:49 PM EDT [facility] Blood Structure of peripheral vein / Unknown 06/05/2023 11:53 AM EDT 06/05/2023 7:56 PM EDT Narrative [facility] - 06/09/2023 5:04 AM EDT FASTING:NO us Anupama Bynum DO LAB BLOOD ORDERABLES Final Resul t [facility] 200 [facility] [address]rd [address], [place] [address], [facility] [address] [place] [address] from Last 3 Months or Most Recently Relevant to Health Maintenance Insurance * Guarantor: Aneta Gan Account Type Relation to Patient Date of Phone Billing Address Personal/Family Self 1965 [phone] (Work) [address] [place] [address] [facility] * Guarantor: Judith Gana Account Type Relation to Patient Date of Phone Billing Address Transplant Self 1965 [phone] (Work) [address] [place] [address] [facility] Care Teams Ct Scan Tech Relationship Specialty Start Date End Date Franklin Sanchez PA [address] [place] [address] PCP - General 06/05/23
--- OUTSIDE RECORDS SUMMARY | 2024-11-28 16:02 | XMS_ITS | Encounter Summary ---
Author Organization [facility] Address [address] [place] [address] Phone Care Team Providers Care Scrap Metal Collector Name Role Phone Unavailable Primary Care Provider Unavailabl e Encounter Details Date Type Department Care Team (Late st Contact Info) Description 08/10/2022 Telephone [facility] [address] [place] [address] Roe Morrissey MD Social History [...] Iris Gee - 08/10/2022 10:19 AM EST [facility] insurance verification called, pt will need a PA for her truxima infusion that is scheduled for tomorrow. This will need to go through [facility]. documented in this encounter Plan of [...] EDT) Calcium 9.1 8.4 - 10.2 mg/dL [facility] 11/06/2022 4:20 PM EDT 11/06/2022 4:20 PM EDT Roe Morrissey MD LAB BLOOD ORDERABLES Final Res ult Performing Organization Address [facility] Co de Phone Number [place] * (ABNORMAL) Creatinine (11/06/2022 4:20 PM EDT) Creatinine Serum 2.59(H) 0.5 - 1.4 mg/dL [facility] e[facility] Comment: NOTE: ??For -[place]aced[place] individuals, multiply the result ? by 1.210. Chronic Kidney Disease: ??Estimated GFR < 60 mL/min/1.73m2 Severe Kidney Disease: ??Estimated GFR < 15 mL/min/1.73m2 11/06/2022 4:20 PM EDT 11/06/2022 4:20 PM EDT Roe Morrissey MD LAB BLOOD ORDERABLES Final Res ult Performing Organization Address [facility] Co de Phone Number [place] * (ABNORMAL) BUN (11/06/2022 4:20 PM EDT) BUN 44(H) 9 - 16 mg/dL [facility] 11/06/2022 4:20 PM EDT 11/06/2022 4:20 PM EDT Roe Morrissey MD LAB BLOOD ORDERABLES Final Res ult Performing Organization Address [facility] Co de Phone Number [place] * (ABNORMAL) [...]
--- OUTSIDE RECORDS SUMMARY | 2024-11-28 16:02 | XMS_ITS | Clinical Summary ---
Author Organization [facility] Address [address] [place] [address] Care Team Providers Care Alligator Trapper Name Role Phone Franklin Sanchez Primary Care Provider [phone] Allergies Active Allergy Reactions Criticality Noted Date [...] Type Department Care Team Description 10/30/2024 Telephone [facility] Transplant Department [address] [place] [address] Zenobia Zepeda RN from Last [...] Description 12/11/2024 8:00 AM EDT Office Visit [facility] Renal Transplant [address] [place] [address] 12/11/2024 8:30 AM EDT Evaluation [facility] Renal Transplant [address] [place] [address] Zenobia Zepeda RN [address] [place] [phone] 12/11/2024 9:30 AM EDT Social Work [facility] Renal Transplant [address] [place] [address] Delores Sepulveda LICSW [address] [place] [address] 12/11/2024 10:15 AM EDT Office Visit [facility] Renal Transplant [address] [place] [address] Franklin Flowers MD [address] [place] [address] Health Maintenance Due Date Last Done Comments [...] Additional history exists Procedures * Due to [place] state law, [...] - 275 mg/dL 08/08/2023 6:45 PM EST [facility] Microalbumin 150.8 mg/dL 08/08/2023 6:45 PM EST [facility] [facility] [employer] [facility] Comment: Verified by repeat analysis. Reference Range Not established Microalbumin/Crea tinine Ratio, Random Urine 1,639(H) <30 mcg/mg creat 08/08/2023 6:45 PM EST [employer] [facility] Comment: The ADA defines abnormalities in [...] ORDERABLES Final Resul t [facility] [address] 3rd Floor, [place] [address], [place] [phone] [facility] [address] [place] [address] * (ABNORMAL) Vitamin D, 25-Hydroxy, Total, Immunoassay (06/05/2023 11:53 AM EDT) [facility] Calcidiol+ercalc idiol 22(L) 30 - 100 ng/mL 06/05/2023 9:28 PM EDT [facility] Comment: Vitamin D Status ? 25-OH Vitamin D: Deficiency: ?<20 ng/mL Insufficiency: ? 20 - 29 ng/mL Optimal: ? > or = 30 ng/mL For 25-OH Vitamin D testing on patients on D2-supplementation and patients for whom quantitation of D2 and D3 fractions is required, the QuestAssureD(TM) 25-OH VIT D, (D2,D3), LC/MS/MS is recommended: order code 26533 (patients >2yrs). See Note 1 Note 1 For additional information, please refer to http://education.Valopaa/faq/HAR052 (This link is being provided for informational/ educational purposes only.) Blood Structure of peripheral vein / Unknown 06/05/2023 11:53 AM EDT 06/05/2023 7:56 PM EDT Narrative [facility] - 06/09/2023 5:04 AM EDT FASTING:NO us Anupama Bynum DO LAB BLOOD ORDERABLES Final Resul t [facility] [address], [place] [address], [place] [phone] [facility] [address] [place] [address] * (ABNORMAL) CBC (06/05/2023 11:53 AM EDT) White Blood Cell Count 5.9 3.8 - 10.8 Thousand/ uL 06/05/2023 10:37 PM EDT [facility] Red Blood Cell Count 3.82 3.80 - 5.10 Million/u L 06/05/2023 10:37 PM EDT [facility] Hemoglobin 11.4(L) 11.7 - 15.5 g/dL 06/05/2023 10:37 PM EDT [facility] Hematocrit 34.4(L) 35.0 - 45.0 % 06/05/2023 10:37 PM EDT [facility] MCV 90.1 80.0 - 100.0 fL 06/05/2023 10:37 PM EDT [facility] MCH 29.8 27.0 - 33.0 pg 06/05/2023 10:37 PM EDT [facility] MCHC 33.1 32.0 - 36.0 g/dL 06/05/2023 10:37 PM EDT [facility] RDW 12.6 11.0 - 15.0 % 06/05/2023 10:37 PM EDT [facility] Platelet Count 310 140 - 400 Thousand/ uL 06/05/2023 10:37 PM EDT [facility] MPV 11.4 7.5 - 12.5 fL 06/05/2023 10:37 PM EDT [facility] Blood Structure of peripheral vein / Unknown 06/05/2023 11:53 AM EDT 06/05/2023 7:48 PM EDT Narrative [facility] - 06/09/2023 5:04 AM EDT FASTING:NO Anupama Bynum DO LAB BLOOD ORDERABLES Final Resul t [facility] [address] [facility] 3rd Floor, [place] [address], [facility] [address] [place] [address] * (ABNORMAL) PTH, Intact (without Calcium) (06/05/2023 11:53 AM EDT) Parathyroid Hormone, Intact 205(H) 16 - 77 pg/mL 06/06/2023 1:16 AM EDT [facility] Comment: Interpretive Guide ?Intact PTH ? Calcium [...] [facility] 3rd Floor, [place] [address], [facility] [address] [place] [address] * (ABNORMAL) Renal Function Panel (06/05/2023 11:53 AM EDT) Glucose 89 65 - 139 mg/dL 06/05/2023 10:49 PM EDT [facility] Comment: ? Non-fasting reference interval BUN 39(H) 7 - 25 mg/dL 06/05/2023 10:49 PM EDT [facility] Creatinine 2.61(H) 0.50 - 1.03 mg/dL 06/05/2023 10:49 PM EDT [facility] eGFR 21(L) > OR = 60 mL/min/1. 73m2 06/05/2023 10:49 PM EDT [facility] Bun/Creatinine Ratio 15 6 - 22 (calc) 06/05/2023 10:49 PM EDT [facility] Sodium 137 135 - 146 mmol/L 06/05/2023 10:49 PM EDT [facility] Potassium 4.6 3.5 - 5.3 mmol/L 06/05/2023 10:49 PM EDT [facility] Chloride 111(H) 98 - 110 mmol/L 06/05/2023 10:49 PM EDT [facility] Carbon Dioxide 18(L) 20 - 32 mmol/L 06/05/2023 10:49 PM EDT [facility] Calcium 9.8 8.6 - 10.4 mg/dL 06/05/2023 10:49 PM EDT [facility] Phosphate 3.5 2.5 - 4.5 mg/dL 06/05/2023 10:49 PM EDT [facility] Albumin 4.0 3.6 - 5.1 g/dL 06/05/2023 10:49 PM EDT [facility] Blood Structure of peripheral vein / Unknown 06/05/2023 11:53 AM EDT 06/05/2023 7:56 PM EDT Narrative [facility] - 06/09/2023 5:04 AM EDT FASTING:NO us Anupama Bynum DO LAB BLOOD ORDERABLES Final Resul t [facility] [address] [facility] 3rd Floor, [place] [address], [place] [phone] [facility] [address] [place] [address] from Last 3 Months or Most Recently Relevant to Health Maintenance Insurance * Guarantor: Aneta Gan Account Type Relation to Patient Date of Phone Billing Address Personal/Family Self 1965 [phone] (Work) [address] [place] [address] [facility] * Guarantor: Aneta Gan Account Type Relation to Patient Date of Phone Billing Address Transplant Self 1965 [phone] [address] [place] [id number] Care Teams Alligator Trapper Relationship Specialty Start Date End Date Franklin Sanchez PA [address] [place] [phone] [facility] - General 06/05/23
--- OUTSIDE RECORDS SUMMARY | 2024-11-28 16:02 | XMS_ITS | Clinical Summary ---
Author Organization [facility] Address [address] [place] [address] Phone Care Team Providers Care Executive Account Manager Name Role Phone Unavailable Primary Care [...] 03/02/2016 Active ergocalciferol (VITAMIN D-2) 1.25 MG (57099 [place]) capsule Take 1 capsule by mouth [...] (Season Ended) 2025 Insurance [facility] Medicaid [place] [facility] Medicaid [place]
--- OUTSIDE RECORDS SUMMARY | 2024-11-28 16:02 | XMS_ITS | Clinical Summary ---
Author Organization [facility] Address [address] [place] [address] Care Team Providers Care Coroner Forensic Technician Name Role Phone Franklin Sanchez Primary [...] Influenza Vaccine 03/06/2024 COVID-19 Vaccine ( - 2023-25 season) [address] [place] [phone] [facility] Care Teams Coroner Forensic Technician Relationship Specialty Start Date End Date Franklin Sanchez PA [facility] [place] [address] PCP - General Adult Health - PA/APNP/SHEET PILE DRIVER OPERATOR/CATCHER PLUG 07/20/21
== END 2024-11-28 15:54 | disposition home or self-care (01) ==
LOC: HO.ACS 15:36
PROVIDERS: PCP Physician Assistant; Visit Provider Internal Medicine Medical Oncology
DX: Z79.01 Long term (current) use of anticoagulants (principal)

== ENCOUNTER → 2024-11-28 15:36 | Outpatient (BNVA) | payer OTHER, MEDICAID, SELFPAY | PROVIDERS: PCP Physician Assistant; Visit Provider Internal Medicine Medical Oncology | DX: I26.99 Other pulmonary embolism without acute cor pulmonale (principal); Z51.81 Encounter for therapeutic drug level monitoring; Z79.01 Long term (current) use of anticoagulants | CPT/HCPCS: 85610; 99211 ==

== ENCOUNTER 2024-12-15 15:07 | Outpatient (AMB) | payer OTHER, MEDICAID, SELFPAY ==
--- OUTSIDE RECORDS SUMMARY | 2024-12-15 15:10 | XMS_ITS ---
Author Organization [facility] Address [address] [place] [address] Care Team Providers Care Sap Enterprise Portal Consultant Name Role Phone Franklin Sanchez Primary Care Provider [phone] Transplant Episode Kidney Candidate [facility] ([place], [place]) - [facility] Evaluation began on 12/11/2024 Marked as Active on 12/11/2024 Kidney CoordinatorZenobia Zepeda RN Email: N/A Scores Score Value Updated Exceptions/Reas ons CPRA Not available EPTS (Calc) 27 12/15/2024 Care Team Name Role Phone Fax Email Zenobia Zepeda RN Kidney Coordinator [phone] N/A Roe Morrissey Referring Physician [phone] N/A Events Pre-Transplant Referred: 10/23/2024 Evaluation began: 12/11/2024 Appointments (11/15/2024 - 01/15/2025) When With Visit Type Description 12/11/2024 Transplant - Jonas Flowers Transpl ant Evaluation Visit Pre-transplant evaluation for kidney transplant (Primary Dx); Pre-transplant evaluation for end stage renal disease; Stage 5 chronic kidney disease not on chronic dialysis (HCC) 12/11/2024 Transplant - Daniel Sepulveda nt Evaluation Visit 12/11/2024 Transplant - Rebecca Zepeda Transplant Evaluation Visit Pre-transplant evaluation for kidney transplant (Primary Dx); ESRD (end stage renal disease) (HCC) 12/11/2024 Transplant - Daniel Boggs Transplant Evaluation Visit Pre-transplant evaluation for kidney transplant (Primary Dx)
--- OUTSIDE RECORDS SUMMARY | 2024-12-15 15:10 | XMS_ITS | Encounter Summary ---
Author Organization [facility] Address [address] [place] [address] Care Team Providers Care Copy Clerk Name Role Phone Franklin Sanchez Primary Care Provider [phone] Encounter Details Date Type Department Care Team (Late st Contact Info) Description 12/12/2024 Documentation [facility] Transplant Department [address] [place] [phone] Delores Sepulveda LICSW [address] [place] [address] [phone] Social History Tobacco Use Types Packs/Day Years Used Date Smoking Tobacco: Never Smokeless Tobacco: Never Alcohol Use Standard Drinks/Week Comments Not Currently 0 (1 standard drink = 0.6 oz pur e alcohol) Comments Unknown Sex and Gender Information Value Date Recorded Sex Assigned at Female 12/04/2024 1:57 PM EDT Legal Sex Female 1:48 PM EDT Gender Identity Female 12/04/2024 1:57 PM EDT Sexual Orientation Choose not to disclose 2024 1:57 PM EDT documented as of this encounter Progress Notes * LYNDA Sutton - 12/12/2024 10:43 AM EDT Kidney Transplant Social Work Progress Note Source Inspector sent a message to patient's pretransplant nurse coordinator informing that patient had a question regarding allergies, during brief writer's psychosocial evaluation yesterday. Source Inspector informed patient that brief writer would send a message to a medical staff to address her question or concern. documented in this encounter Plan of Treatment Upcoming Encounters Date Type Department Care Team (Late st Contact Info) Description 12/08/2025 8:20 AM EDT Follow-Up [facility] Renal Transplant [address] [place] [address] Franklin Flowers MD [address] [place] [address] 12/08/2025 9:00 AM EDT Social Work [facility] Renal Transplant [address] [place] [address] Delores Sepulveda LICSW [address] [place] [address] documented as of this encounter Visit Diagnoses Not on filedocumented in this encounter Care Teams Copy Clerk Relationship Specialty Start Date End Date Franklin Sanchez PA [address] [place] [address] PCP - General 06/05/23 documented as of this encounter
--- OUTSIDE RECORDS SUMMARY | 2024-12-15 15:10 | XMS_ITS | Encounter Summary ---
Author Organization [facility] Address [address] [place] [address] Care Team Providers Care Broomcorn Scraper Name Role Phone Franklin Sanchez Primary Care Provider [phone] Reason for Visit * Transplant (Routine) - Authorized Specialty Diagnoses / Procedures Referred By Courtney t Referred To Contact Transplant Diagnoses CKD (chronic kidney disease) [facility] Renal Transplant [address] [place] [address] Phone: tel: fax: Referral ID Status Reason Start Date Expiration Date V isits Requested Visits Authorized [id number] Authorized 10/23/2024 10/24/2025 24 24 Encounter Details Date Type Department Care Team (Late st Contact Info) Description 12/11/2024 9:30 AM EDT Social Work [facility] Renal Transplant [address] [place] [address] Delores Sepulveda LICSW [address] [place] [address] Social History Tobacco Use Types Packs/Day Years [...] as of this encounter Progress Notes * Delores Sepulveda, TREATMENT MANAGER - 12/11/2024 9:30 AM EDT Kidney Transplant Initial Psychosocial Evaluation The patient is a 59-year-old lady who arrived in the clinic this date for a kidney transplant psychosocial evaluation. The patient arrived with her son Marci (Hernandez) who drove the patient to the hospital. Patient and son attended a kidney transplant education class at this hospital prior to this meeting. Sander Machine introduced self and the social work role. Sander Machine informed the patient that the purpose of consumer loan underwriter's evaluation is to get to know the patient better and to assess the appropriatenessof the patient for transplant from a psychosocial perspective. According to the patient the cause of her kidney disease is lupus. Patient informs consumer loan underwriter that the lupus is currently dormant. According to patient her kidneys have been watched since 2002. Patient states that her kidney disease was noted during routine checkups. The patient is not yet on dialysis.Patient states, however, that she might be soon . Patient states that she is at GFR 14. According to patient the next step is for her to do some education regarding dialysis modalities. Patient states that she feels fine in general. She states that she works 40 hours a week, cuts her grass andcares for her home. Patient reports some general pain however it is tolerable . When discussing her thoughts regarding going forward with transplant patient states that it is scary . However patient maintains transplant as a goal. Social history: The patient was born and raised in [place]. She came [place] at 17 or 18 years old. Patient resides in her own home in [place]. She resides alone. Patient cares for her grandson's dog however has no other pets. Son, Hernandez who is present today, resides in [place], hasa partner and child. Patient's daughter Marifer, resides in [place]. Daughter also has a partner and has 2 children. According to patient she has no other close family members or support contacts. According to patient she started college however needed to stop as she developed illness. 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 Patient works in an office about 5 minutes from her home. Patient reports no service or benefits. For relaxation andenjoyment patient enjoys gardening in the summer time. According to patient's son it would be a good idea for her to started indoor gardening for the colder months. According to patient she is of [employer] amy and voodoo is a source of support in her life. Patient reports no restrictions on her medical care due to voodoo or culture. Financial history: The source of income for the patient is her full-time employment. Patient reports stable finances: housing and food security. Patient is insured by her employer group [employer] and also [employer]. Sander Machine reminded patient to inform the transplant team of any insurance changes or concerns. Sander Machine added that it is best practice to consult with the transplant team prior to making any insurance changes. Sander Machine discussed the family and medical leave act coverage forany potential future need. According to patient's son he is knowledgeable regarding FMLA as he has used it in the past. Support system: The patient reports that she drives. She also reports that she is independent in all of her activities of daily living including medication and appointment management. Patient reports no agencies assisting her with any community services. In the event of a transplant patient's son states that he would be his mother's main source of social support. Hernandez works full-time for [employer]. According to Hernandez a backup to him would be his partner Cathryn. Cathryn drives and works part- time. Patient would also have access to nonemergency medicaltransportation on a scheduled basis through her [employer]. Patient and son voiced confidence that kelly ford would have reliable social support for home care and transportation to medical appointments both scheduled and emergent. The patient discussed living donor potential. According to patient she does not yet have any potential donors. Sander Machine briefly discussed the National Kidney Registry (NKR) as a potential source for actively listed patients to find a living donor. Sander Machine informed patient that potential donors need toinitiate their own education and evaluation, by either calling the transplant clinic or reaching out to NKR. Substance use/substance treatment: The patient reports no history of alcohol concerns or treatment. The patient reports no alcohol use. The patient reports no past or present use of any recreational substances. She reports no past or present misuse/overuse of any opiates/narcotics. According to the patient she stopped smoking about a year and a half ago. Patient states that she smoked only about a pack a week. Patient states that she stopped on her own without any cessation aids. The patient reports no alcohol or substance use concerns in her environment or life situation. Psychiatric treatment: The patient reports no history of inpatient or outpatient mental health care. She reports no history of use of any medications for mood support. According to patient she has her jain and God as hersupport. Patient considers herself mellow . Patient does acknowledge that when she was first placed on prednisone back in 2002 that she became angry . According to patient her kids were teenagers at the time. She states that a lot of the anger came out as yelling at her kids. Patient states that her body has now adjusted to prednisone and she experiences no similar effects. Patient's son noted that this was the first time he learned that the medication his mother was on during those times caused her mood. According to son, as a teenager we don't think of such things. This was a mitchell moment during this evaluation for this mother and son. Sander Machine did remind patient of the potential psychosocial risks of transplant including depression, anxiety, PTSD and guilt. Sander Machine added that in the event of any such concerns the transplant team is available for support. Mental status assessment: Patient was neat in appearance. She engaged readily in the conversation. Patient's attitude was positive, cooperative and forward-looking. Her affect was within normal range for the conversation. Patient reported no limiting mood concerns. Her speech was clear. Her thoughts were well-formed and logical. The patient is oriented to person, place, time and situation. Patient reported no memory, focus or concentration concerns. As the patient begins planning for potential dialysis and transplant, patient appears to present with realistic insight into her illness. Impression: The patient does appear to have a clear understanding of the process and commitment involved in transplant. The patient is not yet on dialysis. She is however discussing next steps of dialysis education and presents today for transplant evaluation. Patient reports having a safe, secure home. She reports that she will have reliable social support from family. Patient's son accompanied her today.Patient's son voices commitment to help his mother with needed home care and transportation to medical appointments as needed. Patient reports stable finances. She reports adequate health insurance and prescription coverage. Patient reports no alcohol or substance use. Patient reports no mental health concerns. Patient reports no cognitive concerns. Given the information received today, patient meets criteria for transplant from a psychosocial perspective. Plan: 1. Marble Installation Helper provided contact information to the patient. 2. Marble Installation Helper informed patient of the Social Work role and that of the transplant team going forward. 3. Marble Installation Helper informed patient of the [facility] pre and post transplant educational support group being held by Kandice. Patient is interested in being placed on the invitation list for upcoming groups. 4. Patient completed a healthcare proxy listing her son Marci Ochoa, as her healthcare agent. 5. Patient completed an authorization for verbal communications listing her son Marci. documented in this encounter Plan of Treatment Upcoming Encounters Date Type Department Care Team (Late st Contact Info) Description 12/08/2025 8:20 AM EDT Follow-Up [facility] Renal Transplant [address] [place] [address] Franklin Flowers MD [address] [place] [address] 12/08/2025 9:00 AM EDT Social Work [facility] Renal Transplant [address] [place] [address] Delores Sepulveda LICSW [address] [place] [address] documented as of this encounter Visit Diagnoses Not on filedocumented in this encounter Care Teams Broomcorn Scraper Relationship Specialty Start Date End Date Franklin Sanchez PA [address] [place] [address] PCP - General 06/05/23 documented as of this encounter
--- OUTSIDE RECORDS SUMMARY | 2024-12-15 15:10 | XMS_ITS | Encounter Summary ---
Author Organization [facility] Address [address] [place] [address] Phone Care Team Providers Care Seismograph Computer Name Role Phone Unavailable Primary Care Provider Unavailabl e Encounter Details Date Type Department Care Team (Late st Contact Info) Description 08/10/2022 Telephone [facility] [address] [place] [address] Roe Morrissey MD Social History [...] Iris Gee - 08/10/2022 10:19 AM EST [facility] insurance verification called, pt will need a PA for her truxima infusion that is scheduled for tomorrow. This will need to go through [facility]. documented in this encounter Plan of [...] EDT) Calcium 9.1 8.4 - 10.2 mg/dL [place] 11/06/2022 4:20 PM EDT 11/06/2022 4:20 PM EDT Roe Morrissey MD LAB BLOOD ORDERABLES Final Res ult Performing Organization Address [facility] Co de Phone Number HOLKACIEMMANUEL * (ABNORMAL) Creatinine (11/06/2022 4:20 PM EDT) Creatinine Serum 2.59(H) 0.5 - 1.4 mg/dL [facility] eGFR (Calc) 19 ESEQUIEL Comment: NOTE: ??For -[place] individuals, multiply the result ? by 1.210. Chronic Kidney Disease: ??Estimated GFR < 60 mL/min/1.73m2 Severe Kidney Disease: ??Estimated GFR < 15 mL/min/1.73m2 11/06/2022 4:20 PM EDT 11/06/2022 4:20 PM EDT Roe Morrissey MD LAB BLOOD ORDERABLES Final Res ult Performing Organization Address [facility] Co de Phone Number HOLYOEMMANUEL * (ABNORMAL) BUN (11/06/2022 4:20 PM EDT) BUN 44(H) 9 - 16 mg/dL [facility] 11/06/2022 4:20 PM EDT 11/06/2022 4:20 PM EDT Roe Morrissey MD LAB BLOOD ORDERABLES Final Res ult Performing Organization Address [facility] Co de Phone Number HOLKACIEMMANUEL * (ABNORMAL) Electrolyte panel (11/06/2022 4:20 PM [...]
--- OUTSIDE RECORDS SUMMARY | 2024-12-15 15:10 | XMS_ITS | Encounter Summary ---
Author Organization [facility] Address [address] [place] [address] Care Team Providers Care Personnel Security Specialist Name Role Phone Franklin Sanchez Primary Care Provider [phone] Reason for Visit * Transplant (Routine) - Authorized Specialty Diagnoses / Procedures Referred By Courtney t Referred To Contact Transplant Diagnoses CKD (chronic kidney disease) [facility] [address] [place] [address] Phone: tel: fax: Referral ID Status Reason Start Date Expiration Date V isits Requested Visits Authorized [id number] Authorized 10/23/2024 10/24/2025 24 24 Encounter Details Date Type Department Care Team (Late st Contact Info) Description 12/11/2024 8:00 AM EDT Office Visit [facility] [address] [place] [address] Evon Sierra LPN Pre-transplant evaluation for kidney transplant (Primary Dx) Social History Tobacco Use Types Packs/Day Years [...] as of this encounter Progress Notes * Evon Sierra LPN - 12/11/2024 8:00 AM EDT Aneta Gan came to transplant clinic for a Kidney transplant evaluation. The patient was checked in , VS done and medications/ allergies reviewed. Patient will continue with Kidney evaluation. documented in this encounter Plan of Treatment Upcoming Encounters Date Type Department Care Team (Late st Contact Info) Description 12/08/2025 8:20 AM EDT Follow-Up [facility] [address] [place] [address] Franklin Flowers MD [address] [place] [address] 12/08/2025 9:00 AM EDT Social Work [facility] [address] [place] [address] Delores Sepulveda LICSW [address] [place] [address] documented as of this encounter Visit Diagnoses Diagnosis Pre-transplant evaluation for kidney transplant- Primary documented in this encounter Care Teams Personnel Security Specialist Relationship Specialty Start Date End Date Franklin Sanchez PA [address] [place] [phone] PCP - General 06/05/23 documented as of this encounter
--- OUTSIDE RECORDS SUMMARY | 2024-12-15 15:10 | XMS_ITS | Referral Summary ---
Author Organization [facility] Address [address] [place] [address] Care Team Providers Care Engineering Specialist Name Role Phone Franklin Sanchez Primary Care Provider [phone] Encounters Date Type Department Care Team Description 12/12/2024 Telephone [facility] Transplant Department [address] [place] [phone] Linh Patel RN 12/12/2024 Documentation [facility] Transplant Department [address] [place] [phone] Delores Sepulveda LICSW 12/11/2024 10:15 AM EDT Office Visit [facility] Renal Transplant [address] [place] [phone] Franklin Flowers MD Pre-transplant evaluation for kidney transplant (Primary Dx); Pre-transplant evaluation for end stage renal disease; Stage 5 chronic kidney disease not on chronic dialysis (HCC) 12/11/2024 9:30 AM EDT Social Work [facility] Renal Transplant [address] [place] [phone] Delores Sepulveda LICSW 12/11/2024 8:30 AM EDT Evaluation [facility] Renal Transplant [address] [place] [address] [phone] Zenobia Zepeda RN Pre-transplant evaluation for kidney transplant (Primary Dx); ESRD (end stage renal disease) (HCC) 12/11/2024 8:00 AM EDT Office Visit [facility] Renal Transplant [address] [place] [address] Evon Sierra LPN Pre-transplant evaluation for kidney transplant (Primary Dx) 12/08/2024 Telephone [facility] Transplant Department [address] [place] [address] Zenobia Zepeda RN 12/04/2024 Orders Only [facility] Transplant Department [address] [place] [address], [place] [phone] Zenobia Zepeda RN Pre-transplant evaluation for end stage renal disease (Primary Dx); Chronic kidney disease, stage IV (severe) (HCC) 10/30/2024 Telephone [facility] Transplant Department [address] [place], [place] [phone] Zenobia Zepeda RN from Last 3 Months Allergies Active Allergy Reactions Criticality Noted Date Comments Cephalexin Rash Medium 11/04/2020 Medications calcium carbonate-vitam in D3 500 mg-200 units tablet Take 2 tablets by mouth once a day. Active cholecalciferol (VITAMIN D3) 2,000 unit capsule Take 2 capsules by mouth once a day. 06/19/20 22 Active gabapentin (NEURONTIN) 100 mg capsule Take 2 capsules by mouth once a day. 05/27/20 23 Active levothyroxine (SYNTHROID, LEVOTHROID) 100 mcg tablet Take 100 mcg by mouth daily. 05/27/20 23 Active warfarin (COUMADIN) 5 mg tablet Take 5 mg by mouth. Daily as directed Active lisinopriL (PRINIVIL,ZESTR IL) 2.5 mg tablet Take 1 tablet (2.5 mg total) by mouth once a day. 90 tablet 3 08/07/19 24 Active atorvastatin (LIPITOR) 20 mg tablet 10/15/19 25 Active calcitrioL (ROCALTROL) 0.25 mcg capsule SMARTSI Capsule(s) By Mouth Daily 11/08/19 25 Active fluticasone propionate (FLONASE) 50 mcg/actuation nasal spray SMARTSI Prospect(s) Both Nares Twice Daily 09/08/19 25 Active sodium bicarbonate 650 mg tablet SMARTSI Tablet(s) By Mouth Twice Daily 08/29/19 25 Active predniSONE (DELTASONE) 2.5 mg tablet 11/28/19 25 Active predniSONE (DELTASONE) 10 mg tablet Take 10 mg by mouth once a day. 025 Discontinued Active Problems No known active problems Social [...] not to disclose 2024 1:57 PM EDT Last Filed Vital Signs Vital Sign Reading Time Taken Comments Blood Pressure 139/88 12/11/2024 8:12 AM EDT Pulse 63 12/11/2024 8:12 AM EDT Temperature 36.1 ??C (97 ??F) 12/11/2024 8:12 AM EDT Respiratory Rate 20 12/11/2024 8:12 AM EDT Oxygen Saturation 97% 12/11/2024 8:12 AM EDT Inhaled Oxygen Concentration - - Weight 62 kg (136 lb 11 oz) 12/11/2024 8:12 AM E DT Height 149.9 cm (4' 11 ) 08/07/2023 8:16 AM EST Body Mass Index 27.61 08/07/2023 8:16 AM EST Plan of Treatment Upcoming Encounters Date Type Department Care Team (Late st Contact Info) Description 12/08/2025 8:20 AM EDT Follow-Up [facility] Renal Transplant [address] [place] [address] Franklin Flowers MD [address] [place] [address] 12/08/2025 9:00 AM EDT Social Work [facility] Renal Transplant [address] [place] [address] Derick, Delores, [address] [address] Procedures * Due to [place] state law, this organization might not be sharing negative HIV tests. Procedure Name Priority Date/Time Associated Diagnosis Comments ALBUMIN Routine 12/11/2024 12:08 PM EDT Pre-transplant evaluation for end stage renal disease Chronic kidney disease, stage IV (severe) (HCC) ALT Routine 12/11/2024 12:08 PM EDT Pre-transplant evaluation for end stage renal disease Chronic kidney disease, stage IV (severe) (HCC) AST Routine 12/11/2024 12:08 PM EDT Pre-transplant evaluation for end stage renal disease Chronic kidney disease, stage IV (severe) (HCC) BILIRUBIN, DIRECT Routine 12/11/2024 12:08 PM EDT Pre-transplant evaluation for end stage renal disease Chronic kidney disease, stage IV (severe) (HCC) BILIRUBIN, TOTAL Routine 12/11/2024 12:08 PM EDT Pre-transplant evaluation for end stage renal disease Chronic kidney disease, stage IV (severe) (HCC) BUN Routine 12/11/2024 12:08 PM EDT Pre-transplant evaluation for end stage renal disease Chronic kidney disease, stage IV (severe) (HCC) CALCIUM Routine 12/11/2024 12:08 PM EDT Pre-transplant evaluation for end stage renal disease Chronic kidney disease, stage IV (severe) (HCC) CBC AUTO DIFFERENTIAL Routine 12/11/2024 12:08 PM EDT Pre-transplant evaluation for end stage renal disease Chronic kidney disease, stage IV (severe) (HCC) CREATININE Routine 12/11/2024 12:08 PM EDT Pre-transplant evaluation for end stage renal disease Chronic kidney disease, stage IV (severe) (HCC) CYTOMEGALOVIRUS ANTIBODY, IGG Routine 12/11/2024 12:08 PM EDT Pre-transplant evaluation for end stage renal disease Chronic kidney disease, stage IV (severe) (HCC) TIMO-LEE VIRUS ANTIBODY PANEL Routine 12/11/2024 12:08 PM EDT Pre-transplant evaluation for end stage renal disease Chronic kidney disease, stage IV (severe) (HCC) HEPATITIS A ANTIBODY, TOTAL Routine 12/11/2024 12:08 PM EDT Pre-transplant evaluation for end stage renal disease Chronic kidney disease, stage IV (severe) (HCC) HEPATITIS B CORE ANTIBODY, TOTAL Routine 12/11/2024 12:08 PM EDT Pre-transplant evaluation for end stage renal disease Chronic kidney disease, stage IV (severe) (HCC) HEPATITIS B SURFACE ANTIGEN W/CONFIRMATION Routine 12/11/2024 12:08 PM EDT Pre-transplant evaluation for end stage renal disease Chronic kidney disease, stage IV (severe) (HCC) HEPATITIS B SURFACE ANTIBODY Routine 12/11/2024 12:08 PM EDT Pre-transplant evaluation for end stage renal disease Chronic kidney disease, stage IV (severe) (HCC) HEPATITIS C ANTIBODY W/REFLEX TO HCV RNA, QUANTITATIVE PCR Routine 12/11/2024 12:08 PM EDT Pre-transplant evaluation for end stage renal disease Chronic kidney disease, stage IV (severe) (HCC) HERPES SIMPLEX VIRUS 1&2 ANTIBODY, IGG Routine 12/11/2024 12:08 PM EDT Pre-transplant evaluation for end stage renal disease Chronic kidney disease, stage IV (severe) (HCC) MMR PANEL (MEASLES, MUMPS, RUBELLA), IGG Routine 12/11/2024 12:08 PM EDT Pre-transplant evaluation for end stage renal disease Chronic kidney disease, stage IV (severe) (HCC) PHOSPHORUS Routine 12/11/2024 12:08 PM EDT Pre-transplant evaluation for end stage renal disease Chronic kidney disease, stage IV (severe) (HCC) PROTIME-INR Routine 12/11/2024 12:08 PM EDT Pre-transplant evaluation for end stage renal disease Chronic kidney disease, stage IV (severe) (HCC) PTT Routine 12/11/2024 12:08 PM EDT Pre-transplant evaluation for end stage renal disease Chronic kidney disease, stage IV (severe) (HCC) QUANTIFERON-TB GOLD PLUS, 1 [id number] Routine 12/11/2024 12:08 PM EDT Pre-transplant evaluation for end stage renal disease Chronic kidney disease, stage IV (severe) (HCC) RPR (DIAGNOSIS) W/REFLEX TO TITER & TPPA [id number] Routine 12/11/2024 12:08 PM EDT Pre-transplant evaluation for end stage renal disease Chronic kidney disease, stage IV (severe) (HCC) VARICELLA ZOSTER ANTIBODY, IGG Routine 12/11/2024 12:08 PM EDT Pre-transplant evaluation for end stage renal disease Chronic kidney disease, stage IV (severe) (HCC) ABO/RH BLOOD TYPE Routine 12/11/2024 12:08 PM EDT Pre-transplant evaluation for end stage renal disease Chronic kidney disease, stage IV (severe) (HCC) MICROALBUMIN, RANDOM URINE WITH CREATININE Routine 08/07/2023 9:01 AM EST Chronic kidney disease, stage 4 (severe) VITAMIN D, 25-HYDROXY, TOTAL, IMMUNOASSAY Routine 06/05/2023 [...] to Health Maintenance Results * Due to [place] state law, this organization might not be sharing negative HIV tests. * MMR Panel, IgG (12/11/2024 12:08 PM EDT) Measles Antibody (IgG), Immune Status >300.00 AU/mL 12/11/2024 9:31 PM EDT [facility] Comment: AU/mL ?Interpretation ----- ? <13.50 ? Not consistent with immunity 13.50-16.49 ?Equivocal >16.49 ? Consistent with immunity The presence of measles IgG suggests immunization or past or current infection with measles virus. For additional information, please refer to http://SHOP.CA.[employer]/faq/GZK348 (This link is being provided for informational/ educational purposes only.) Mumps Antibody (IgG), Immune Status 114.00 AU/mL 12/11/2024 9:31 PM EDT [facility] Comment: AU/mL ? Interpretation ------- ? <9.00 ? Not consistent with immunity 9.00-10.99 ?Equivocal >10.99 ?Consistent with immunity The presence of mumps IgG antibody suggests immunization or past or current infection with mumps virus. Rubella Antibody (IgG), Immune Status 20.40 Index 12/11/2024 9:31 PM EDT [facility] Comment: ?Index ?Interpretation ?----- ?<0.90 ?Not consistent with immunity ?0.90-0.99 ?Equivocal ?> or = 1.00 ?Consistent with immunity The presence of rubella IgG antibody suggests immunization or past or current infection with rubella virus. Blood Structure of peripheral vein / Unknown Venipuncture / Unknown 12/11/2024 12:08 PM EDT 12/11/2024 12:23 PM EDT Narrative [facility] - 12/11/2024 9:31 PM EDT [facility] Received Date:[id number] Franklin Flowers MD LAB BLOOD ORDERABLES [place] Result [address], [place] [address], [facility] [address], [place] [address], * (ABNORMAL) Herpes Simplex Virus 1&2, IgG (12/11/2024 12:08 PM EDT) HSV 1 IgG Type Specific Ab 44.60(H) index 12/12/2024 4:21 AM EDT [facility] HSV 2 IgG Type Specific Ab 14.90(H) index 12/12/2024 4:21 AM EDT [facility] Comment: ?Index ?Interpretation ?----- ?<0.90 ?Negative ?0.90-1.09 ?Equivocal ?>1.09 ?Positive This assay utilizes recombinant type-specific antigens to differentiate HSV-1 from HSV-2 infections. A positive result cannot distinguish between recent and past infection. If recent HSV infection is suspected but the results are negative or equivocal, the assay should be repeated in 4-6 weeks. The performance characteristics of the assay have not been established for pediatric populations, immunocompromised patients, or screening. For additional information, please refer to http://education.[employer]/faq/KCI905 (This link is being provided for informational/ educational purposes only.) ?? Blood Structure of peripheral vein / Unknown Venipuncture / Unknown 12/11/2024 12:08 PM EDT 12/11/2024 12:24 PM EDT [email or web address] - 12/12/2024 4:21 AM EDT [facility] Received Date: Franklin Flowers MD LAB BLOOD ORDERABLES [place] Result Performing Organization Address City/State/[facility] Co de Phone Number [address], [place] [address], [facility] [address], [place] [address], * RPR (Diagnosis) w/Reflex to Titer & TPPA Confirm (12/11/2024 12:08 PM EDT) RPR W/Refl Titer NON-REACT MARSHALL NON-REACT MARSHALL 12/12/2024 11:54 AM EDT [facility] Blood Structure of peripheral vein / Unknown Venipuncture / Unknown 12/11/2024 12:08 PM EDT 12/11/2024 12:24 PM EDT [email or web address] - 12/12/2024 11:54 AM EDT [facility] Received Date: us Franklin Flowers MD LAB BLOOD ORDERABLES [place] Result [facility] [address] [facility] [address], [place] [address], [facility] [address] [facility] [address] Floor, [place] [address], * QuantiFERON-TB Gold Plus, 1 Tube (12/11/2024 12:08 PM EDT) [facility] QuantiFERON-TB Gold Plus NEGATIVE NEGATIVE 12/14/2024 2:16 AM EDT [facility] Comment: Negative test result. M. tuberculosis complex infection unlikely. NIL 0.03 IU/mL 12/14/2024 2:16 AM EDT [facility] Mitogen-NIL 9.50 IU/mL 12/14/2024 2:16 AM EDT [facility] TB1-NIL 0.02 IU/mL 12/14/2024 2:16 AM EDT [facility] TB2-NIL 0.01 IU/mL 12/14/2024 2:16 AM EDT [facility] Comment: The Nil tube value reflects the background interferon gamma immune response of the patient's blood sample. This value has been subtracted from the patient's displayed TB and Mitogen results. Lower than expected results with the Mitogen tube prevent false-negative Quantiferon readings by detecting a patient with a potential immune suppressive condition and/or suboptimal pre-analytical specimen handling. The TB1 Antigen tube is coated with the M. tuberculosis-specific antigens designed to elicit responses from TB antigen primed CD4+ helper T-lymphocytes. The TB2 Antigen tube is coated with the M. tuberculosis-specific antigens designed to elicit responses from TB antigen primed CD4+ helper and CD8+ cytotoxic T-lymphocytes. For additional information, please refer to https://education.[employer]/faq/MKZ204 (This link is being provided for informational/ educational purposes only.) Blood Structure of peripheral vein / Unknown Venipuncture / Unknown 12/11/2024 12:08 PM EDT 12/11/2024 12:22 PM EDT Narrative [facility] - 12/14/2024 2:16 AM EDT [facility] Received Date: Franklin Flowers MD LAB BLOOD ORDERABLES [place] Result [facility] [address] [facility] [address], [place] [address], [place] [phone] [facility] [address] [facility] 3rd Floor, [place] [address], [place] [phone] * (ABNORMAL) CBC Auto Differential (12/11/2024 12:08 PM EDT) WBC 6.6 3.8 - 10.8 10*3/uL 12/11/2024 12:32 PM EDT [facility] RBC 3.52(L) 3.80 - 5.10 10*6/uL 12/11/2024 12:32 PM EDT [facility] Hemoglobin 10.4(L) 11.7 - 15.5 g/dL 12/11/2024 12:32 PM EDT [facility] Hematocrit 33.1(L) 35.0 - 45.0 % 12/11/2024 12:32 PM EDT [facility] MCV 94.0 80.0 - 100.0 fL 12/11/2024 12:32 PM EDT [facility] MCH 29.5 27.0 - 33.0 pg 12/11/2024 12:32 PM EDT [facility] MCHC 31.4(L) 32.0 - 36.0 g/dL 12/11/2024 12:32 PM EDT [facility] RDW 13.3 11.0 - 15.0 % 12/11/2024 12:32 PM EDT [facility] Platelets 289 140 - 400 10*3/uL 12/11/2024 12:32 PM EDT [facility] MPV 10.4 7.5 - 12.5 fL 12/11/2024 12:32 PM EDT [facility] Neutrophil % 58.9 % 12/11/2024 12:32 PM EDT [facility] Immature Grans % 0.5 0.0 - 0.9 % 12/11/2024 12:32 PM EDT [facility] Lymphocyte % 30.5 % 12/11/2024 12:32 PM EDT [facility] Monocyte % 5.8 % 12/11/2024 12:32 PM EDT [facility] Eosinophil % 3.8 % 12/11/2024 12:32 PM EDT [facility] Basophil % 0.5 % 12/11/2024 12:32 PM EDT [facility] Neutrophil # 3.86 1.50 - 7.80 10*3/uL 12/11/2024 12:32 PM EDT [facility] Immature Grans # 0.03 <=0.03 10*3/uL 12/11/2024 12:32 PM EDT [facility] Lymphocyte # 2.00 0.85 - 3.90 10*3/uL 12/11/2024 12:32 PM EDT [facility] Monocyte # 0.40 0.20 - 0.95 10*3/uL 12/11/2024 12:32 PM EDT [facility] Eosinophil # 0.30 0.02 - 0.50 10*3/uL 12/11/2024 12:32 PM EDT [facility] Basophil # <0.03 0.00 - 0.20 10*3/uL 12/11/2024 12:32 PM EDT [facility] nRBC % 0.0 /100 WBCs 12/11/2024 12:32 PM EDT [facility] nRBC # <0.01 <0.01 10*3/uL 12/11/2024 12:32 PM EDT [facility] Blood Structure of peripheral vein / Unknown Venipuncture / Unknown 12/11/2024 12:08 PM EDT 12/11/2024 12:24 PM EDT Franklin Flowers MD LAB BLOOD ORDERABLES [place] Result [facility] [address] [place] [address], * (ABNORMAL) Timo-Lee Virus VCA Antibody Panel (12/11/2024 12:08 PM EDT) EBV Viral Capsid Ag Ab (IGM) <36.00 U/mL 12/12/2024 4:20 AM EDT [facility] Comment: ?U/mL ?Interpretation ?---- ?<36.00 ?Negative ?36.00-43.99 ? Equivocal ?>43.99 ?Positive EBV Viral Capsid Ag Ab (IGG) 386.00(H) U/mL 12/12/2024 4:20 AM EDT [facility] Comment: ? U/mL ? Interpretation ? ---- ? <18.00 ? Negative ? 18.00-21.99 ?Equivocal ? >21.99 ? Positive EBV Nuclear Ag Ab >600.00(H) U/mL 025 4:20 AM EDT [facility] Comment: ? U/mL ? Interpretation ? ---- ? <18.00 ? Negative ? 18.00-21.99 ?Equivocal ? >21.99 ? Positive Interpretation: See Comments 12/12/2024 4:20 AM EDT [facility] Comment: Suggestive of a past Timo-Lee virus infection. In infants, a similar pattern may occur as a result of passive maternal transfer of antibody. Blood Structure of peripheral vein / Unknown Venipuncture / Unknown 12/11/2024 12:08 PM EDT 12/11/2024 12:23 PM EDT Narrative [facility] - 12/12/2024 4:20 AM EDT [facility] Received Date: Franklin Flowers MD LAB BLOOD ORDERABLES [place] Result [facility] [address] [facility] [address], [place] [address], [facility] [address] [facility] 3[address], [place] [address], * Hepatitis C Antibody w/Reflex to PCR (12/11/2024 12:08 PM EDT) Pathologist [facility] Hepatitis C Antibody NON-REACT MARSHALL NON-REACT MARSHALL 12/12/2024 6:33 AM EDT [facility] Comment: HCV antibody was non-reactive. There is no laboratory evidence of HCV infection. In most cases, no further action is required. However, if recent HCV exposure is suspected, a test for HCV RNA (test code 55330) is suggested. For additional information please refer to http://SHOP.CA.[employer]/faq/RBT20r9 (This link is being provided for informational/ educational purposes only.) Blood Structure of peripheral vein / Unknown Venipuncture / Unknown 12/11/2024 12:08 PM EDT 12/11/2024 12:23 PM EDT Narrative [facility] - 12/12/2024 6:33 AM EDT [facility] Received Date: Franklin Flowers MD LAB BLOOD ORDERABLES [place] l Result Performing Organization Address City/[facility] Co de Phone Number [facility] [address], [place] [address], [place] [phone] [facility] [address], [place] [address], [place] [phone] * (ABNORMAL) Hepatitis A Antibody, Total (12/11/2024 12:08 PM EDT) Hepatitis A Ab, Total REACTIVE( A) NON-REACT MARSHALL 12/12/2024 5:23 AM EDT [facility] Comment: For additional information, please refer to http://SHOP.CA.[employer]/faq/NKQ665 (This link is being provided for informational/ educational purposes only.) Blood Structure of peripheral vein / Unknown Venipuncture / Unknown 12/11/2024 12:08 PM EDT 12/11/2024 12:23 PM EDT Narrative [facility] - 12/12/2024 5:23 AM EDT [facility] Received Date: Franklin Flowers MD LAB BLOOD ORDERABLES [place] Result Performing Organization Address City/[facility]/ZIP Co de Phone Number [address], [place] [address], [place] [phone] [facility] [address], [place] [address], [place] [phone] * Hepatitis B Core Antibody, Total (12/11/2024 12:08 PM EDT) Hepatitis B Core Ab Total NON-REACT MARSHALL NON-REACT MARSHALL 12/11/2024 9:08 PM EDT [facility] Comment: For additional information, please refer to http://education.[employer]/faq/YXW712 (This link is being provided for informational/ educational purposes only.) Blood Structure of peripheral vein / Unknown Venipuncture / Unknown 12/11/2024 12:08 PM EDT 12/11/2024 12:24 PM EDT Narrative [facility] - 12/11/2024 9:08 PM EDT [facility] Received Date: Franklin Flowers MD LAB BLOOD ORDERABLES [place] Result [facility] [address] [facility] [address] [facility], [place] [address], [place] [phone] [facility] [address], [place] [address], [place] [phone] * ABO/Rh Blood Type (12/11/2024 12:08 PM EDT) Pathologist [facility] ABO Blood Type AB 12/11/2024 1:50 PM EDT [facility] RH Type Positive 12/11/2024 1:50 PM EDT [facility] Blood Structure of peripheral vein / Unknown Venipuncture / Unknown 12/11/2024 12:08 PM EDT 12/11/2024 1:04 PM EDT us Franklin Flowers MD LAB BLOOD BANK TEST ORDER HENRY Final Result [facility] [address] [place] [address], [place] [phone] * (ABNORMAL) Hepatitis B Surface Antibody (12/11/2024 12:08 PM EDT) Pathologist [facility] Hepatitis B Surface Ab Immunity, Qn <5(L) > OR = 10 mIU/mL 12/12/2024 4:47 AM EDT [facility] Comment: PATIENT DOES NOT HAVE IMMUNITY TO HEPATITIS B VIRUS. For additional information, please refer to http://SHOP.CA.[employer]/faq/AEJ164 (This link is being provided for informational/ educational purposes only). Blood Structure of peripheral vein / Unknown Venipuncture / Unknown 12/11/2024 12:08 PM EDT 12/11/2024 12:23 PM EDT [facility] - 12/12/2024 4:47 AM EDT [facility] Received Date: Franklin Flowers MD LAB BLOOD ORDERABLES [place] Result [facility] [address] [facility] [address], [place] [address], [facility] [address] [facility] [address], [place] [address], [place] [phone] * Hepatitis B Surface Antigen w/Confirmation (12/11/2024 12:08 PM EDT) Pathologist [facility] Hepatitis B Surface Antigen NON-REACT MARSHALL NON-REACT MARSHALL 12/11/2024 9:08 PM EDT [facility] Comment: For additional information, please refer to http://SHOP.CA.[employer]/faq/LPI817 (This link is being provided for informational/ educational purposes only.) Blood Structure of peripheral vein / Unknown Venipuncture / Unknown 12/11/2024 12:08 PM EDT 12/11/2024 12:23 PM EDT Narrative [facility] - 12/11/2024 9:08 PM EDT [facility] Received Date: Franklin Flowers MD LAB BLOOD ORDERABLES [place] Result [facility] [address] [facility] [address], [place] [address], [place] [phone] [facility] [address] [facility] [address], [place] [address], * (ABNORMAL) Cytomegalovirus Antibody, IgG (12/11/2024 12:08 PM EDT) [facility] Cytomegalovirus Antibody (IgG) >10.00(H ) U/mL 12/11/2024 9:30 PM EDT [facility] Comment: ? U/mL ? Interpretation ? ----- ? <0.60 ? Negative ? 0.60-0.69 ? Equivocal ? > or = 0.70 ?? Positive A positive result indicates that the patient has antibody to CMV. It does not differentiate between an active or past infection. Blood Structure of peripheral vein / Unknown Venipuncture / Unknown 12/11/2024 12:08 PM EDT 12/11/2024 12:23 PM EDT Narrative LULA NAVA - 12/11/2024 9:30 PM EDT [facility] Received Date: Franklin Flowers MD LAB BLOOD ORDERABLES [place] [facility] [address] [facility] 3rd Floor, [place] [address], [place] [phone] [facility] [address] [facility] 3rd Floor, [place] [address], [place] [phone] * (ABNORMAL) PTT (12/11/2024 12:08 PM EDT) aPTT 36.4(H) 23.0 - 32.0 Seconds 12/11/2024 12:48 PM EDT [facility] Comment: Current PTT reagent is not sensitive to detect all Lupus Anticoagulant (LA) Inhibitor Cases. ?? If a LA is suspected, please order a Lupus Anticoagulation w/ Reflex Test which is performed at [facility] in [place], [place]. Blood Structure of peripheral vein / Unknown Venipuncture / Unknown 12/11/2024 12:08 PM EDT 12/11/2024 12:24 PM EDT Franklin Flowers MD LAB BLOOD ORDERABLES [place] [facility] [address] [place] [address], * (ABNORMAL) Protime-INR (12/11/2024 12:08 PM EDT) PT 23.5(H) 9.6 - 12.4 Seconds 12/11/2024 12:48 PM EDT [facility] INR 2.3 0.9 - 1.1 12/11/2024 12:48 PM EDT [facility] Comment:The optimal therapeu tic INR range for patients treated with Vitamin K antagonists (VKAS, e.g., Warfarin) is 2.0 to 3.5. Discuss the desired range with your doctor/care team. Blood Structure of peripheral vein / Unknown Venipuncture / Unknown 12/11/2024 12:08 PM EDT 12/11/2024 12:24 PM EDT Franklin Flowers MD LAB BLOOD ORDERABLES [place] [facility] [address] [place] [address], [place] * Varicella Zoster Antibody, IgG (12/11/2024 12:08 PM EDT) Varicella Zoster Virus Antibody 32.50 S/CO 12/12/2024 4:28 AM EDT [facility] Comment: ?Signal to Cut-off ? S/CO ?Interpretation ? --------- ?<1.00 ?Negative - Antibody not detected ?> or = 1.00 ?Positive - Antibody detected ?A positive result indicates that the patient ?has antibody to VZV but does not differentiate ?between an active or past infection. ?The clinical diagnosis must be interpreted in ?conjunction with the clinical signs and symptoms of ?the patient. This assay reliably measures immunity ?due to previous infection but may not be ?sensitive enough to detect antibodies induced by ?vaccination. Thus, a negative result in a vaccinated ?individual does not necessarily indicate ?susceptibility to VZV infection. A more sensitive ?test for vaccination-induced immunity is Varicella ?Zoster Virus Antibody Immunity Screen, ACIF. Blood Structure of peripheral vein / Unknown Venipuncture / Unknown 12/11/2024 12:08 PM EDT 12/11/2024 12:24 PM EDT [facility]ative [facility] - 12/12/2024 4:28 AM EDT [facility] Received Date: Franklin Flowers MD LAB BLOOD ORDERABLES [place] [facility] [address] [facility] 3[address], [place] [address], [place] [phone] [facility] [address], [place] [address], [place] [phone] * (ABNORMAL) BUN (12/11/2024 12:08 PM EDT) BUN 41(H) 7 - 23 mg/dL 12/11/2024 12:59 PM EDT [facility] Blood Structure of peripheral vein / Unknown Venipuncture / Unknown 12/11/2024 12:08 PM EDT 12/11/2024 12:26 PM EDT Franklin Flowers MD LAB BLOOD ORDERABLES [place] Result [facility] [address] [place] [address], [place] * ALT (12/11/2024 12:08 PM EDT) ALT 20 10 - 40 U/L 12/11/2024 12:59 PM EDT [facility] Blood Structure of peripheral vein / Unknown Venipuncture / Unknown 12/11/2024 12:08 PM EDT 12/11/2024 12:26 PM EDT Franklin Flowers MD LAB BLOOD ORDERABLES [place] Result [facility] [address] [place] [address], [place] * AST (12/11/2024 12:08 PM EDT) AST 30 10 - 40 U/L 12/11/2024 12:59 PM EDT [facility] Blood Structure of peripheral vein / Unknown Venipuncture / Unknown 12/11/2024 12:08 PM EDT 12/11/2024 12:26 PM EDT Franklin Flowers MD LAB BLOOD ORDERABLES [place] Result Performing Organization Address City/[facility]/ZIP Co de Phone Number [facility] [address] [place] [address], * Phosphorus (12/11/2024 12:08 PM EDT) Phosphorus 3.4 2.5 - 4.5 mg/dL 12/11/2024 12:59 PM EDT [facility] LAB[facility] Blood Structure of peripheral vein / Unknown Venipuncture / Unknown 12/11/2024 12:08 PM EDT 12/11/2024 12:26 PM EDT Franklin Flowers MD LAB BLOOD ORDERABLES [place] Result Performing Organization Address [facility] Co de Phone Number [facility] [address] [place] [address], * (ABNORMAL) Creatinine (12/11/2024 12:08 PM EDT) Creatinine 3.06(H) 0.50 - 1.20 mg/dL 12/11/2024 12:59 PM EDT [facility] eGFR 17(L) >=60 mL/min/1 .73m2 12/11/2024 12:59 PM EDT [facility] Comment:The estimated glomer ular filtration rate (eGFR) is calculated using a new formula developed by the NKF-ASN task force to eliminate race-based correction factors. The new formula uses serum/plasma creatinine, age, and gender to determine eGFR. A value below 60mls/min might indicate kidney disease and will be flagged. For additional information, see Shira et al, Am J Kidney Dis. 2021;79(2):268- 288, A Unifying Approach for GFR estimation: Recommendations of the NKF-ASN Task Force on Reassessing the Inclusion of Race in Diagnosing Kidney Disease . Blood Structure of peripheral vein / Unknown Venipuncture / Unknown 12/11/2024 12:08 PM EDT 12/11/2024 12:26 PM EDT Franklin Flowers MD LAB BLOOD ORDERABLES [place] Result Performing Organization Address City/[facility]/ZIP Co de Phone Number [facility] [address] [place] [address], [place] * (ABNORMAL) Calcium (12/11/2024 12:08 PM EDT) Calcium 10.7(H) 8.6 - 10.5 mg/dL 12/11/2024 12:59 PM EDT [facility] Blood Structure of peripheral vein / Unknown Venipuncture / Unknown 12/11/2024 12:08 PM EDT 12/11/2024 12:26 PM EDT Franklin Flowers MD LAB BLOOD ORDERABLES [place] Result Performing Organization Address [facility] Co de Phone Number [facility] [address] [place] [address], [place] * Bilirubin, Direct (12/11/2024 12:08 PM EDT) Bilirubin, Direct 0.2 <=0.4 mg/dL 12/11/2024 12:59 PM EDT [facility] Blood Structure of peripheral vein / Unknown Venipuncture / Unknown 12/11/2024 12:08 PM EDT 12/11/2024 12:26 PM EDT Franklin Flowers MD LAB BLOOD ORDERABLES [place] Result [facility] [address] [place] [address], [place] * Bilirubin, Total (12/11/2024 12:08 PM EDT) Pathologist [facility] Bilirubin, Total 0.5 0.2 - 1.2 mg/dL 12/11/2024 12:59 PM EDT [facility] Blood Structure of peripheral vein / Unknown Venipuncture / Unknown 12/11/2024 12:08 PM EDT 12/11/2024 12:26 PM EDT Franklin Flowers MD LAB BLOOD ORDERABLES [place] Result Performing Organization Address City/[facility]/ZIP Co de Phone Number [facility] [address] [place] [address], [place] * Albumin (12/11/2024 12:08 PM EDT) [facility] Albumin 4.2 3.5 - 5.2 g/dL 12/11/2024 12:59 PM EDT [facility] Blood Structure of peripheral vein / Unknown Venipuncture / Unknown 12/11/2024 12:08 PM EDT 12/11/2024 12:26 PM EDT Franklin Flowers MD LAB BLOOD ORDERABLES [place] Result Performing Organization Address City/[facility]/ZIP Co de Phone Number [facility] [address] [place] [address], [place] * (ABNORMAL) Microalbumin, Random Urine with Creatinine (08/07/2023 9:01 AM EST) Pathologist [facility] Creatinine, Random Urine 92 20 - 275 mg/dL 08/08/2023 6:45 PM EST [facility] Microalbumin 150.8 mg/dL 08/08/2023 6:45 PM EST [facility] Comment: Verified by repeat analysis. Reference Range Not established Microalbumin/Crea tinine Ratio, Random Urine 1,639(H) <30 mcg/mg creat 08/08/2023 6:45 PM EST [facility] Comment: The ADA defines abnormalities in albumin [...] [facility] [address] [facility], [place] [address], [employer] [facility] [address] [place] [address] * (ABNORMAL) Vitamin D, 25-Hydroxy, Total, Immunoassay (06/05/2023 11:53 AM EDT) Calcidiol+ercalc idiol 22(L) 30 - 100 ng/mL 06/05/2023 9:28 PM EDT [facility] Comment: Vitamin D Status ? 25-OH Vitamin D: Deficiency: ?<20 ng/mL Insufficiency: ? 20 - 29 ng/mL Optimal: ? > or = 30 ng/mL For 25-OH Vitamin D testing on patients on D2-supplementation and patients for whom quantitation of D2 and D3 fractions is required, the QuestAssureD(TM) 25-OH VIT D, (D2,D3), LC/MS/MS is recommended: order code 62523 (patients >2yrs). See Note 1 Note 1 For additional information, please refer to http://education.[employer]/faq/RIA583 (This link is being provided for informational/ educational purposes only.) Blood Structure of peripheral vein / Unknown 06/05/2023 11:53 AM EDT 06/05/2023 7:56 PM EDT Narrative [facility] - 06/09/2023 5:04 AM EDT FASTING:NO us Anupama Bynum DO LAB BLOOD ORDERABLES Final Resul t [facility] [address] [facility] 3rd Floor, [place] [address], [employer] [facility] [address] [place] [address] * (ABNORMAL) PTH, Intact (without Calcium) (06/05/2023 11:53 AM EDT) Parathyroid Hormone, Intact 205(H) 16 - 77 pg/mL 06/06/2023 1:16 AM EDT [facility] Comment: Interpretive Guide ?Intact PTH ? Calcium [...] 06/09/2023 5:04 AM EDT FASTING:NO us Anupama Anthonyleanna DO LAB BLOOD ORDERABLES Final Resul t [facility] [address] [facility] [address], [place] [address], [place] [phone] [employer] [facility] [address] [place] [address] * (ABNORMAL) Renal Function Panel (06/05/2023 11:53 AM EDT) [facility] Glucose 89 65 - 139 mg/dL 06/05/2023 10:49 PM EDT [employer] [facility] Comment: ? Non-fasting reference interval BUN 39(H) 7 - 25 mg/dL 06/05/2023 10:49 PM EDT [facility] Creatinine 2.61(H) 0.50 - 1.03 mg/dL 06/05/2023 10:49 PM EDT [facility] eGFR 21(L) > OR = 60 mL/min/1. 73m2 06/05/2023 10:49 PM EDT [facility] Bun/Creatinine Ratio 15 6 - 22 (calc) 06/05/2023 10:49 PM EDT [facility] Sodium 137 135 - 146 mmol/L 06/05/2023 10:49 PM EDT [facility] Potassium 4.6 3.5 - 5.3 mmol/L 06/05/2023 10:49 PM EDT [facility] Chloride 111(H) 98 - 110 mmol/L 06/05/2023 10:49 PM EDT [facility] Carbon Dioxide 18(L) 20 - 32 mmol/L 06/05/2023 10:49 PM EDT [facility] Calcium 9.8 8.6 - 10.4 mg/dL 06/05/2023 10:49 PM [facility] Phosphate 3.5 2.5 - 4.5 mg/dL 06/05/2023 10:49 PM EDT [facility] Albumin 4.0 3.6 - 5.1 g/dL 06/05/2023 10:49 PM EDT [facility] Blood Structure of peripheral vein / Unknown 06/05/2023 11:53 AM EDT 06/05/2023 7:56 PM EDT Narrative [facility] - 06/09/2023 5:04 AM EDT FASTING:NO us Anupama Bynum DO LAB BLOOD ORDERABLES Final Resul t [facility] [address] [facility] [address]rd [address], [place] [address], [facility] [address] [place] [address] from Last 3 Months or Most Recently Relevant to Health Maintenance Insurance * Guarantor: Aneta Gan Account Type Relation to Patient Date of Phone Billing Address Personal/Family Self 1965 [phone] (Work) [address] [place] [address] [facility] [id number] [place] [address] * Guarantor: Aneta Gan Account Type Relation to Patient Date of Phone Billing Address Transplant Self 1965 [phone] (Work) [address] [place] [address] [facility] Member Subscriber Plan / Payer (Ef fective 2018-Present) Name:Aneta Gan Relation to Subscriber:Self Name:Aneta Gan Payer ID:[id number] Type:HMO Address: [facility], [id number] Care Teams Engineering Specialist Relationship Specialty Start Date End Date Franklin Sanchez PA [address] [place] [address] PCP - General 06/05/23"
--- OUTSIDE RECORDS SUMMARY | 2024-12-15 15:10 | XMS_ITS | Clinical Summary ---
Author Organization [facility] Address [address] [place] [address] Care Team Providers Care Retail And Promotions Coordinator Name Role Phone Franklin Sanchez Primary Care [...] Zoster (Shingles) Vaccine (1 of 2) 2015 COVID-19 Vaccine (1 - season) 2024 Influenza Vaccine 03/06/2025 [place] [address] [facility] Care Teams Retail And Promotions Coordinator Relationship Specialty Start Date End Date Franklin Sanchez PA [facility] [place] [address] PCP - General Adult Health - PA/APNP/CLERICAL OFFICE WORKER/SUPERVISOR HYDROCHLORIC AREA 07/20/21
--- OUTSIDE RECORDS SUMMARY | 2024-12-15 15:10 | XMS_ITS | Encounter Summary ---
Author Organization [facility] Address [address] [place] [address] Care Team Providers Care Technology Applications Teacher Name Role Phone Franklin Sanchez Primary Care Provider [phone] Reason for Visit * Transplant (Routine) - Authorized Specialty Diagnoses / Procedures Referred By Courtney t Referred To Contact Transplant Diagnoses CKD (chronic kidney disease) [facility] Renal Transplant [address] [place] [address] Phone: tel: fax: Referral ID Status Reason Start Date Expiration Date V isits Requested Visits Authorized [id number] Authorized 10/23/2024 10/24/2025 24 24 Encounter Details Date Type Department Care Team (Late st Contact Info) Description 12/11/2024 8:30 AM EDT Evaluation [facility] Renal Transplant [address] [place] [address] Zenobia Zepeda RN [address] [place], [place] [phone] Pre-transplant evaluation for kidney transplant (Primary Dx); ESRD (end stage renal disease) (HCC) Social History Tobacco Use Types Packs/Day Years [...] as of this encounter Progress Notes * Erika Guajardo RN - 12/11/2024 8:30 AM EDT Images from the original note were not included. S: I need a kidney transplant. O: Met with Aneta and her son, Hernandez today for pre-transplant education class, which was supported by written and audiovisual materials. All elements on the Transplant Recipient Education form werereviewed. An education packet was provided to the patient which includes the following information: - [facility] booklet What Every Patient Needs to Know - [facility] brochure Questions and Answers for Transplant Candidates and Families about Multiple Listing and Waiting Time Transfer - [facility] booklet Pre Transplant Patient Information - [facility] transplant outcomes SRTR report - Business cards with contact information for computer security coordinator. Diagnostic tests obtained during this visit: - ABO typing - HLA typing - Serologies A: Aneta and her son verbalized understanding of the education provided and asked several appropriate questions. P: Initiate transplant recipient evaluation. Reviewed appointments for multidisciplinary transplantclinic visit. Additional tests and/or consults to be determined by multidisciplinary team visit. Erika Guajardo RN, BSN, [facility] Clinical Coordinator, Renal Transplant documented in this encounter Plan of Treatment Upcoming Encounters Date Type Department Care Team (Late st Contact Info) Description 12/08/2025 8:20 AM EDT Follow-Up [facility] Renal Transplant [address] [place] [address] Franklin Flowers MD [address] [place] [address] 12/08/2025 9:00 AM EDT Social Work [facility] Renal Transplant [address] [place] [address] Delores Sepulveda LICSW [address] [place] [address] documented as of this encounter Visit Diagnoses Diagnosis Pre-transplant evaluation for kidney transplant- Primary ESRD (end stage renal disease) (HCC) End stage renal disease documented in this encounter Care Teams Technology Applications Teacher Relationship Specialty Start Date End Date Franklin Sanchez PA [address] [place] [address] PCP - General 06/05/23 documented as of this encounter
--- OUTSIDE RECORDS SUMMARY | 2024-12-15 15:10 | XMS_ITS | Clinical Summary ---
Author Organization [facility] Address [address] [place] [address] Phone Care Team Providers Care Jewel Hole Rough Opener Name Role Phone Unavailable Primary Care Provider [...] 03/02/2016 Active ergocalciferol (VITAMIN D-2) 1.25 MG (91561 UT) capsule Take 1 capsule by mouth [...] (Season Ended) 2025 Insurance [facility] Medicaid ID [facility] Medicaid ID
--- OUTSIDE RECORDS SUMMARY | 2024-12-15 15:10 | XMS_ITS | Encounter Summary ---
Author Organization [facility] Address [address] [place] [address] Care Team Providers Care Staff Design Engineer Name Role Phone Franklin Sanchez Primary Care Provider [phone] Encounter Details Date Type Department Care Team (Late st Contact Info) Description 12/12/2024 Telephone [facility] Transplant Department [address] [place] [address] [phone] Linh Patel RN [address] [place] [address] Social History Tobacco Use Types Packs/Day Years [...] PM EDT documented as of this encounter Miscellaneous Notes * Telephone Encounter - Linh Patel RN - 12/12/2024 11:32 AM EDT LVM with request to return my call to review allergies. documented in this encounter Plan of Treatment Upcoming Encounters Date Type Department Care Team (Late st Contact Info) Description 12/08/2025 8:20 AM EDT Follow-Up [facility] Renal Transplant [address] [place] [address] Franklin Flowers MD [address] [place] [address] 12/08/2025 9:00 AM EDT Social Work [facility] Renal Transplant [address] [place] [address] Delores Sepulveda LICSW [address] [place] [address] documented as of this encounter Visit Diagnoses Not on filedocumented in this encounter Care Teams Staff Design Engineer Relationship Specialty Start Date End Date Franklin Sanchez PA [address] [place] [address] PCP - General 06/05/23 documented as of this encounter
--- OUTSIDE RECORDS SUMMARY | 2024-12-15 15:10 | XMS_ITS | Clinical Summary ---
Author Organization [facility] Address [address] [place] [address] Care Team Providers Care Manager Insurance Name Role Phone Franklin Sanchez Primary Care Provider [phone] Allergies Active Allergy Reactions Criticality Noted Date [...] propionate (FLONASE) 50 mcg/actuation nasal spray SMARTSI [place](s) Both Nares Twice Daily 09/08/19 25 Active sodium bicarbonate 650 mg tablet SMARTSI Tablet(s) By Mouth Twice Daily 08/29/19 25 Active predniSONE (DELTASONE) 2.5 mg tablet 11/28/19 25 Active predniSONE (DELTASONE) 10 mg tablet Take 10 mg by mouth once a day. 025 Discontinued Active Problems No known active problems Encounters Date Type Department Care Team Description 12/12/2024 Telephone [facility] Transplant Department [address] [place] [address] [phone] Linh Patel RN 12/12/2024 Documentation [facility] Transplant Department [address] [place] [address] 90724 Delores Sepulveda LICSW 12/11/2024 10:15 AM EDT Office Visit [facility] Renal Transplant [address] [place] [address] [phone] Franklin Flowers MD Pre-transplant evaluation for kidney transplant (Primary Dx); Pre-transplant evaluation for end stage renal disease; Stage 5 chronic kidney disease not on chronic dialysis (HCC) 12/11/2024 9:30 AM EDT Social Work [facility] Renal Transplant [address] [place] [address] 27063 Delores Sepulveda EVENT EXECUTIVE 12/11/2024 8:30 AM EDT Evaluation [facility] Renal Transplant [address] [place] [address] 46220 Zenobia Zepeda, PRIYANK Pre-transplant evaluation for kidney transplant (Primary Dx); ESRD (end stage renal disease) (HCC) 12/11/2024 8:00 AM EDT Office Visit [facility] Renal Transplant [address] [place] [address] 36492 Evon Sierra LPN Pre-transplant evaluation for kidney transplant (Primary Dx) 12/08/2024 Telephone [facility] Transplant Department [address] [place] [address] 11805 Zenobia Zepeda, RN 12/04/2024 Orders Only [facility] Transplant Department [address] [place] [address] 29666 Zenobia Zepeda, RN Pre-transplant evaluation for end stage renal disease (Primary Dx); Chronic kidney disease, stage IV (severe) (HCC) 10/30/2024 Telephone [facility] Transplant Department [address] [place] [address] Zenobia Zepeda RN from Last 3 Months [...] Info) Description 12/08/2025 8:20 AM EDT Follow-Up [facility] Renal Transplant [address] [place] [address] Franklin Flowers MD [address] [place] [address] 12/08/2025 9:00 AM EDT Social Work [facility] Renal Transplant [address] [place] [address] DerickDelores, [address] [address] Health Maintenance Due Date Last Done Comments CKD: Referral to Nutrition 1965 Cologuard 1965 Colon Cancer Screening 1965 Colonoscopy 1965 FOBT / Fit Test 1965 Sigmoidoscopy 1965 Hepatitis B Vaccines (1 [...] 25 Hydroxy / Vitamin D 06/05/2024 06/05/2023 PTH 06/05/2024 06/05/2023 Alcohol/Substance Use Screening 08/06/2024 Depression Screening and Follow-Up 08/06/2024 Social Drivers of Health Nayla ual Screening 08/06/2024 Urine Microalbumin 08/07/2024 08/07/2023, 1 , 06/05/2023 Hemoglobin 12/11/2025 12/11/2024, 06/05/2023 Phosphorus 12/11/2025 12/11/2024, 06/05/2023 RSV Vaccine (60+ years old a nd patients) (1 - 1-dose 75+ series) 2040 Influenza Vaccine Completed 07/16/2024, , 06/11/2019, Additional history exists CKD: Referral to Nephrology Completed 12/11/2024 HIV Screening Completed 12/11/2024 Hepatitis C Screening Completed 12/11/2024 Procedures * Due to [place] state [...] IV (severe) (HCC) QUANTIFERON-TB GOLD PLUS, 1 [id number] Routine 12/11/2024 12:08 PM EDT Pre-transplant evaluation for end stage renal disease Chronic kidney disease, stage IV (severe) (HCC) RPR (DIAGNOSIS) W/REFLEX TO TITER & TPPA [id number] Routine 12/11/2024 12:08 PM EDT Pre-transplant evaluation [...] Status >300.00 AU/mL 12/11/2024 9:31 PM EDT [employer] Comment: AU/mL ?Interpretation ----- ? <13.50 ? Not consistent with immunity 13.50-16.49 ?Equivocal >16.49 ? Consistent with immunity The presence of measles IgG suggests immunization or past or current infection with measles virus. For additional information, please refer to http://ExecNote.Vidient/faq/RHT361 (This link is being provided for informational/ educational purposes only.) Mumps Antibody (IgG), Immune Status 114.00 AU/mL 12/11/2024 9:31 PM EDT [employer] Comment: AU/mL ? Interpretation ------- ? <9.00 ? Not consistent with immunity 9.00-10.99 ?Equivocal >10.99 ?Consistent with immunity The presence of mumps IgG antibody suggests immunization or past or current infection with mumps virus. Rubella Antibody (IgG), Immune Status 20.40 Index 12/11/2024 9:31 PM EDT [employer] Comment: ?Index ?Interpretation ?----- ?<0.90 ?Not consistent with immunity ?0.90-0.99 ?Equivocal ?> or = 1.00 ?Consistent with immunity The presence of rubella IgG antibody suggests immunization or past or current infection with rubella virus. Blood Structure of peripheral vein / Unknown Venipuncture / Unknown 12/11/2024 12:08 PM EDT 12/11/2024 12:23 PM EDT Narrative [facility] - 12/11/2024 9:31 PM EDT [facility] Received Date: us Franklin Flowers MD LAB BLOOD ORDERABLES [place] Result [facility] [address] [facility] [address], [place] [address], [employer] [facility] [address], [place] [address], * (ABNORMAL) Herpes Simplex Virus 1&2, IgG (12/11/2024 12:08 PM EDT) Pathologist [facility] HSV 1 IgG Type Specific Ab 44.60(H) index 12/12/2024 4:21 AM EDT [employer] [facility] HSV 2 IgG Type Specific Ab 14.90(H) index 12/12/2024 4:21 AM EDT [employer] [facility] Comment: ?Index ?Interpretation ?----- ?<0.90 ?Negative ?0.90-1.09 [...] screening. For additional information, please refer to http://education.Vidient/faq/EKR358 (This link is being provided for informational/ educational purposes only.) ?? Blood Structure of peripheral vein / Unknown Venipuncture / Unknown 12/11/2024 12:08 PM EDT 12/11/2024 12:24 PM EDT Narrative [facility] - 12/12/2024 4:21 AM EDT [employer] Received Date: Franklin Flowers MD LAB BLOOD ORDERABLES [place] l Result [facility] [address] [facility] [address], [place] [address], [employer] [facility] [address] [facility] [address], [place] [address], [place] [phone] * RPR (Diagnosis) w/Reflex to Titer & TPPA Confirm (12/11/2024 12:08 PM EDT) RPR W/Refl Titer NON-REACT MARSHALL NON-REACT MARSHALL 12/12/2024 11:54 AM EDT [employer] [facility] Blood Structure of peripheral vein / Unknown Venipuncture / Unknown 12/11/2024 12:08 PM EDT 12/11/2024 12:24 PM EDT Narrative [facility] - 12/12/2024 11:54 AM EDT [employer] Received Date: Franklin Flowers MD LAB BLOOD ORDERABLES [place] Result [facility] [address] [facility] [address] Floor, [place] [address], [place] [phone] [employer] [facility] [address], [address] [facility] [place] [address], [place] [phone] * QuantiFERON-TB Gold Plus, 1 Tube (12/11/2024 12:08 PM EDT) [facility] QuantiFERON-TB Gold Plus NEGATIVE NEGATIVE 12/14/2024 2:16 AM EDT [employer] [facility] Comment: Negative test result. M. tuberculosis complex infection unlikely. NIL 0.03 IU/mL 12/14/2024 2:16 AM EDT [employer] [facility] Mitogen-NIL 9.50 IU/mL 12/14/2024 2:16 AM EDT [employer] [facility] TB1-NIL 0.02 IU/mL 12/14/2024 2:16 AM EDT [employer] [facility] TB2-NIL 0.01 IU/mL 12/14/2024 2:16 AM EDT [employer] [facility] Comment: The Nil tube value reflects [...] T-lymphocytes. For additional information, please refer to https://education.[employer].WebStart [place]/faq/LIX494 (This link is being provided for informational/ educational purposes only.) Blood Structure of peripheral vein / Unknown Venipuncture / Unknown 12/11/2024 12:08 PM EDT 12/11/2024 12:22 PM EDT Narrative [facility] - 12/14/2024 2:16 AM EDT [facility] Received Date: us Franklin Flowers MD LAB BLOOD ORDERABLES [place] Result [facility] [address] [facility] [address], [place] [address], [place] [phone] [employer] [facility] [address] [facility] [address] Floor, [place] [address], [place] [phone] * (ABNORMAL) CBC Auto Differential (12/11/2024 12:08 PM EDT) WBC 6.6 3.8 - 10.8 10*3/uL 12/11/2024 12:32 PM EDT [employer] [facility] [employer] [facility] RBC 3.52(L) 3.80 - 5.10 10*6/uL 12/11/2024 12:32 PM EDT [facility] [employer] [facility] Hemoglobin 10.4(L) 11.7 - 15.5 g/dL 12/11/2024 12:32 PM EDT [facility] [employer] [facility] Hematocrit 33.1(L) 35.0 - 45.0 % 12/11/2024 12:32 PM EDT [facility] [facility] MCV 94.0 80.0 - 100.0 fL 12/11/2024 12:32 PM EDT [employer] [facility] MCH 29.5 27.0 - 33.0 pg 12/11/2024 12:32 PM EDT [employer] [employer] [facility] MCHC 31.4(L) 32.0 - 36.0 g/dL 12/11/2024 12:32 PM EDT [facility] RDW 13.3 11.0 - 15.0 % 12/11/2024 12:32 PM EDT [facility] Platelets 289 140 - 400 10*3/uL 12/11/2024 12:32 PM EDT [employer] [facility] MPV 10.4 7.5 - 12.5 fL 12/11/2024 12:32 PM EDT [employer] Neutrophil % 58.9 % 12/11/2024 12:32 PM EDT [employer] Immature Grans % 0.5 0.0 - 0.9 % 12/11/2024 12:32 PM EDT [employer] Lymphocyte % 30.5 % 12/11/2024 12:32 PM EDT [employer] [facility] Monocyte % 5.8 % 12/11/2024 12:32 PM EDT [employer] [facility] Eosinophil % 3.8 % 12/11/2024 12:32 PM EDT [employer] [facility] Basophil % 0.5 % 12/11/2024 12:32 PM EDT [employer] [facility] Neutrophil # 3.86 1.50 - 7.80 10*3/uL 12/11/2024 12:32 PM EDT [employer] [facility] Immature Grans # 0.03 <=0.03 10*3/uL 12/11/2024 12:32 PM EDT [employer] [facility] Lymphocyte # 2.00 0.85 - 3.90 10*3/uL 12/11/2024 12:32 PM EDT [employer] [facility] Monocyte # 0.40 0.20 - 0.95 10*3/uL 12/11/2024 12:32 PM EDT [employer] [facility] Eosinophil # 0.30 0.02 - 0.50 10*3/uL 12/11/2024 12:32 PM EDT [employer] [facility] Basophil # <0.03 0.00 - 0.20 10*3/uL 12/11/2024 12:32 PM EDT [employer] [facility] nRBC % 0.0 /100 WBCs 12/11/2024 12:32 PM EDT [employer] [facility] nRBC # <0.01 <0.01 10*3/uL 12/11/2024 12:32 PM EDT [employer] [facility] Blood Structure of peripheral vein / Unknown Venipuncture / Unknown 12/11/2024 12:08 PM EDT 12/11/2024 12:24 PM EDT Franklin Flowers MD LAB BLOOD ORDERABLES [place] Result [employer] [facility] [address] [place] [address], * (ABNORMAL) Timo-Lee Virus VCA Antibody Panel (12/11/2024 12:08 PM EDT) EBV Viral Capsid Ag Ab (IGM) <36.00 U/mL 12/12/2024 4:20 AM EDT [employer] Comment: ?U/mL ?Interpretation ?---- ?<36.00 ?Negative ?36.00-43.99 ? Equivocal ?>43.99 ?Positive EBV Viral Capsid Ag Ab (IGG) 386.00(H) U/mL 12/12/2024 4:20 AM EDT [facility] Comment: ? U/mL ? Interpretation ? ---- ? <18.00 ? Negative ? 18.00-21.99 ?Equivocal ? >21.99 ? Positive EBV Nuclear Ag Ab >600.00(H) U/mL 025 4:20 AM EDT [employer] Comment: ? U/mL ? Interpretation ? ---- ? <18.00 ? Negative ? 18.00-21.99 ?Equivocal ? >21.99 ? Positive Interpretation: See Comments 12/12/2024 4:20 AM EDT [employer] Comment: Suggestive of a past Timo-Lee virus infection. In infants, a similar pattern may occur as a result of passive maternal transfer of antibody. Blood Structure of peripheral vein / Unknown Venipuncture / Unknown 12/11/2024 12:08 PM EDT 12/11/2024 12:23 PM EDT Narrative [facility] - 12/12/2024 4:20 AM EDT [employer] Received Date:[id number] Franklin Flowers MD LAB BLOOD ORDERABLES [place] Result [facility] [address], [place] [address], [employer] [facility] [address], [place] [address], * Hepatitis C Antibody w/Reflex to PCR (12/11/2024 12:08 PM EDT) Hepatitis C Antibody NON-REACT MARSHALL NON-REACT MARSHALL 12/12/2024 6:33 AM EDT [facility] Comment: HCV antibody was non-reactive. There is no laboratory evidence of HCV infection. In most cases, no further action is required. However, if recent HCV exposure is suspected, a test for HCV RNA (test code 16330) is suggested. For additional information please refer to http://education.Cellrox/faq/SOD16c0 (This link is being provided for informational/ educational purposes only.) Blood Structure of peripheral vein / Unknown Venipuncture / Unknown 12/11/2024 12:08 PM EDT 12/11/2024 12:23 PM EDT Narrative [facility] - 12/12/2024 6:33 AM EDT [facility] Received Date: Franklin Flowers MD LAB BLOOD ORDERABLES [place] Result [facility] [address] [facility] [address], [place] [address], [place] [phone] [employer] [address], [place] [address], [place] [phone] * (ABNORMAL) Hepatitis A Antibody, Total (12/11/2024 12:08 PM EDT) Hepatitis A Ab, Total REACTIVE( A) NON-REACT MARSHALL 12/12/2024 5:23 AM EDT [employer] [facility] Comment: For additional information, please refer to http://ExecNote.Cellrox/faq/FHE505 (This link is being provided for informational/ educational purposes only.) Blood Structure of peripheral vein / Unknown Venipuncture / Unknown 12/11/2024 12:08 PM EDT 12/11/2024 12:23 PM EDT Narrative [facility] - 12/12/2024 5:23 AM EDT [facility] Received Date:[id number] us Franklin Flowers MD LAB BLOOD ORDERABLES [place] Result [facility] [address] [facility] [address], [place] [address], [place] [phone] [employer] [address] [facility] [address], [place] [address], [place] [phone] * Hepatitis B Core Antibody, Total (12/11/2024 12:08 PM EDT) Hepatitis B Core Ab Total NON-REACT MARSHALL NON-REACT MARSHALL 12/11/2024 9:08 PM EDT [employer] [facility] Comment: For additional information, please refer to http://ExecNote.Cellrox/faq/OJH494 (This link is being provided for informational/ educational purposes only.) Blood Structure of peripheral vein / Unknown Venipuncture / Unknown 12/11/2024 12:08 PM EDT 12/11/2024 12:24 PM EDT Narrative [facility] - 12/11/2024 9:08 PM EDT [facility] Received Date:[id number] Franklin Flowers MD LAB BLOOD ORDERABLES [place] Result Performing Organization Address City/[facility]/ZIP Co de Phone Number [facility] [address] [facility] [address], [place] [address], [place] [phone] [employer] [address] [facility] [address] [facility], [place] [address], [place] [phone] * ABO/Rh Blood Type (12/11/2024 12:08 PM EDT) ABO Blood Type AB 12/11/2024 1:50 PM EDT [facility] RH Type Positive 12/11/2024 1:50 PM EDT [facility] Blood Structure of peripheral vein / Unknown Venipuncture / Unknown 12/11/2024 12:08 PM EDT 12/11/2024 1:04 PM EDT us Franklin Flowers MD LAB BLOOD BANK TEST ORDER HENRY Final Result [facility] [address] [place] [address], [place] [phone] * (ABNORMAL) Hepatitis B Surface Antibody (12/11/2024 12:08 PM EDT) Pathologist [facility] Hepatitis B Surface Ab Immunity, Qn <5(L) > OR = 10 mIU/mL 12/12/2024 4:47 AM EDT [employer] [facility] Comment: PATIENT DOES NOT HAVE IMMUNITY TO HEPATITIS B VIRUS. For additional information, please refer to http://ExecNote.Cellrox/faq/FJY546 (This link is being provided for informational/ educational purposes only). Blood Structure of peripheral vein / Unknown Venipuncture / Unknown 12/11/2024 12:08 PM EDT 12/11/2024 12:23 PM EDT Narrative [employer] - 12/12/2024 4:47 AM EDT [facility] Received Date: us Franklin Flowers MD LAB BLOOD ORDERABLES [place] Result Performing Organization Address City/[facility] Co de Phone Number [facility] [address] [facility] [address], [place] [address], [employer] [facility] [address] [facility] [address], [place] [address], * Hepatitis B Surface Antigen w/Confirmation (12/11/2024 12:08 PM EDT) [facility] Hepatitis B Surface Antigen NON-REACT MARSHALL NON-REACT MARSHALL 12/11/2024 9:08 PM EDT [employer] [facility] Comment: For additional information, please refer to http://ExecNote.Cellrox/faq/IHE865 (This link is being provided for informational/ educational purposes only.) Blood Structure of peripheral vein / Unknown Venipuncture / Unknown 12/11/2024 12:08 PM EDT 12/11/2024 12:23 PM EDT Narrative [facility] - 12/11/2024 9:08 PM EDT [facility] Received Date: us Franklin Flowers MD LAB BLOOD ORDERABLES [place] Result [facility] [address] [facility] [address], [place] [address], [employer] [facility] [address] [facility] [address] Floor, [address] [facility] [place] [address], * (ABNORMAL) Cytomegalovirus Antibody, IgG (12/11/2024 12:08 PM EDT) Cytomegalovirus Antibody (IgG) >10.00(H ) U/mL 12/11/2024 9:30 PM EDT [employer] Comment: ? U/mL ? Interpretation ? ----- [...] - 12/11/2024 9:30 PM EDT [facility] Received Date:[id number] Franklin Flowers MD LAB BLOOD ORDERABLES [place] Result [facility] [address] [facility] [address] [facility], [place] [address], [place] [phone] [employer] [address], [place] [address], [place] [phone] * (ABNORMAL) PTT (12/11/2024 12:08 PM EDT) aPTT 36.4(H) 23.0 - 32.0 Seconds 12/11/2024 12:48 PM EDT [facility] [employer] [facility] Comment: Current PTT reagent is not sensitive to detect all Lupus Anticoagulant (LA) Inhibitor Cases. ?? If a LA is suspected, please order a Lupus Anticoagulation w/ Reflex Test which is performed at [facility] in [place], [place]. Blood Structure of peripheral vein / Unknown Venipuncture / Unknown 12/11/2024 12:08 PM EDT 12/11/2024 12:24 PM EDT Franklin Flowers MD LAB BLOOD ORDERABLES [place] Result [facility] [employer] [facility] LAB[facility]ORY [address] [place] [address], [place] * (ABNORMAL) Protime-INR (12/11/2024 12:08 PM EDT) PT 23.5(H) 9.6 - 12.4 Seconds 12/11/2024 12:48 PM EDT [facility] [employer] [facility] INR 2.3 0.9 - 1.1 12/11/2024 12:48 PM EDT [facility] [employer] [facility] Comment:The optimal therapeu tic INR range for patients treated with Vitamin K antagonists (VKAS, e.g., Warfarin) is 2.0 to 3.5. Discuss the desired range with your doctor/care team. Blood Structure of peripheral vein / Unknown Venipuncture / Unknown 12/11/2024 12:08 PM EDT 12/11/2024 12:24 PM EDT Franklin Flowers MD LAB BLOOD ORDERABLES [place] Result Performing Organization Address [facility] de Phone Number [facility] [facility] [address] [place] [address], * Varicella Zoster Antibody, IgG (12/11/2024 12:08 PM EDT) Varicella Zoster Virus Antibody 32.50 S/CO 12/12/2024 4:28 AM EDT [employer] Comment: ?Signal to Cut-off ? S/CO ?Interpretation [...] EDT 12/11/2024 12:24 PM EDT Narrative [facility] [place] - 12/12/2024 4:28 AM EDT [facility] Received Date:[id number] Franklin Flowers MD LAB BLOOD ORDERABLES [place] Result [facility] [address] [facility] [address], [place] [address], [place] [phone] [employer] [address] [facility] [address], [place] [address], [place] [phone] * (ABNORMAL) BUN (12/11/2024 12:08 PM EDT) BUN 41(H) 7 - 23 mg/dL 12/11/2024 12:59 PM EDT [employer] [facility] Blood Structure of peripheral vein / Unknown Venipuncture / Unknown 12/11/2024 12:08 PM EDT 12/11/2024 12:26 PM EDT Franklin Flowers MD LAB BLOOD ORDERABLES [place] Result [employer] [facility] [address] [place] [address], [place] * ALT (12/11/2024 12:08 PM EDT) ALT 20 10 - 40 U/L 12/11/2024 12:59 PM EDT [employer] [facility] Blood Structure of peripheral vein / Unknown Venipuncture / Unknown 12/11/2024 12:08 PM EDT 12/11/2024 12:26 PM EDT Franklin Flowers MD LAB BLOOD ORDERABLES [place] Result [employer] [facility] [address] [place] [address], [place] * AST (12/11/2024 12:08 PM EDT) AST 30 10 - 40 U/L 12/11/2024 12:59 PM EDT [employer] [facility] Blood Structure of peripheral vein / Unknown Venipuncture / Unknown 12/11/2024 12:08 PM EDT 12/11/2024 12:26 PM EDT Franklin Flowers MD LAB BLOOD ORDERABLES [place] Result Performing Organization Address City/[facility]/ZIP Co de Phone Number [facility] [facility] LAB[facility]ATORY [address] [place] [address], * Phosphorus (12/11/2024 12:08 PM EDT) Phosphorus 3.4 2.5 - 4.5 mg/dL 12/11/2024 12:59 PM EDT [facility] [employer] CL[facility] PATHOLOG[facility] LABORATORY Blood Structure of peripheral vein / Unknown Venipuncture / Unknown 12/11/2024 12:08 PM EDT 12/11/2024 12:26 PM EDT Franklin Flowers MD LAB BLOOD ORDERABLES [place] Result Performing Organization Address City/[facility] Co de Phone Number [facility] [facility] LAB[facility]ORY [address] [place] [address], * (ABNORMAL) Creatinine (12/11/2024 12:08 PM EDT) Creatinine 3.06(H) 0.50 - 1.20 mg/dL 12/11/2024 12:59 PM EDT [facility] [employer] [facility] LAB[facility] eGFR 17(L) >=60 mL/min/1 .73m2 12/11/2024 12:59 PM EDT [facility] [employer] [facility] Comment:The estimated glomer ular filtration rate (eGFR) is calculated using a new formula developed by the NKF-ASN task force to eliminate race-based correction factors. The new formula uses serum/plasma creatinine, age, and gender to determine eGFR. A value below 60mls/min might indicate kidney disease and will be flagged. For additional information, see Shira foreman al, Am J Kidney Dis. 2021;79(2):268- 288, A Unifying Approach for GFR estimation: Recommendations of the NKF-ASN Task Force on Reassessing the Inclusion of Race in Diagnosing Kidney Disease . Blood Structure of peripheral vein / Unknown Venipuncture / Unknown 12/11/2024 12:08 PM EDT 12/11/2024 12:26 PM EDT Franklin Flowers MD LAB BLOOD ORDERABLES [place] Result Performing Organization Address City/[facility]/ZIP Co de Phone Number [employer] [facility] LAB[facility]ORY [address] [place] [address], [place] * (ABNORMAL) Calcium (12/11/2024 12:08 PM EDT) Calcium 10.7(H) 8.6 - 10.5 mg/dL 12/11/2024 12:59 PM EDT [facility] CL[facility] PATH[facility] LAB[facility] Blood Structure of peripheral vein / Unknown Venipuncture / Unknown 12/11/2024 12:08 PM EDT 12/11/2024 12:26 PM EDT Franklin Flowers MD LAB BLOOD ORDERABLES [place] Result Performing Organization Address Select [facility]/ZIP Co de Phone Number [facility] [address] [place] [id number], [place] * Bilirubin, Direct (12/11/2024 12:08 PM EDT) Bilirubin, Direct 0.2 <=0.4 mg/dL 12/11/2024 12:59 PM EDT [facility] Blood Structure of peripheral vein / Unknown Venipuncture / Unknown 12/11/2024 12:08 PM EDT 12/11/2024 12:26 PM EDT Franklin Flowers MD LAB BLOOD ORDERABLES [place] Result [facility] [address] [place] [id number], [place] * Bilirubin, Total (12/11/2024 12:08 PM EDT) Bilirubin, Total 0.5 0.2 - 1.2 mg/dL 12/11/2024 12:59 PM EDT [facility] Blood Structure of peripheral vein / Unknown Venipuncture / Unknown 12/11/2024 12:08 PM EDT 12/11/2024 12:26 PM EDT Franklin Flowers MD LAB BLOOD ORDERABLES [place] Result Performing Organization Address City/[facility]/ZIP Co de Phone Number [facility] [address] [place] [address], * Albumin (12/11/2024 12:08 PM EDT) Pathologist [facility] Albumin 4.2 3.5 - 5.2 g/dL 12/11/2024 12:59 PM EDT [facility] Blood Structure of peripheral vein / Unknown Venipuncture / Unknown 12/11/2024 12:08 PM EDT 12/11/2024 12:26 PM EDT Franklin Flowers MD LAB BLOOD ORDERABLES [place] Result Performing Organization Address City/[facility]/ZIP Co de Phone Number [facility] [address] [place] [address], * (ABNORMAL) Microalbumin, Random Urine with Creatinine (08/07/2023 9:01 AM EST) Creatinine, Random Urine 92 20 - 275 mg/dL 08/08/2023 6:45 PM EST [employer] Microalbumin 150.8 mg/dL 08/08/2023 6:45 PM EST [employer] [facility] Comment: Verified by repeat analysis. Reference Range Not established Microalbumin/Crea tinine Ratio, Random Urine 1,639(H) <30 mcg/mg creat 08/08/2023 6:45 PM EST [employer] [facility] Comment: The ADA defines abnormalities [...] DO LAB URINE ORDERABLES Final Resul t [facility] [address], [place] [address], [employer] [address] [place] [address] * (ABNORMAL) Vitamin D, 25-Hydroxy, Total, Immunoassay (06/05/2023 11:53 AM EDT) Calcidiol+ercalc idiol 22(L) 30 - 100 ng/mL 06/05/2023 9:28 PM EDT [employer] Comment: Vitamin D Status ? 25-OH Vitamin D: Deficiency: ?<20 ng/mL Insufficiency: ? 20 - 29 ng/mL Optimal: ? > or = 30 ng/mL For 25-OH Vitamin D testing on patients on D2-supplementation and patients for whom quantitation of D2 and D3 fractions is required, the [employer]() 25-OH VIT D, (D2,D3), LC/MS/MS is recommended: order code 05761 (patients >2yrs). See Note 1 Note 1 For additional information, please refer to http://education.Vidient/faq/WTX816 (This link is being provided for informational/ educational purposes only.) Blood Structure of peripheral vein / Unknown 06/05/2023 11:53 AM EDT 06/05/2023 7:56 PM EDT Narrative [facility] - 06/09/2023 5:04 AM EDT FASTING:NO us Anupama Bynum DO LAB BLOOD ORDERABLES Final Resul t [facility] [address], [place] [address], [employer] [address] [place] [address] * (ABNORMAL) PTH, Intact (without Calcium) (06/05/2023 11:53 AM EDT) Parathyroid Hormone, Intact 205(H) 16 - 77 pg/mL 06/06/2023 1:16 AM EDT [employer] Comment: Interpretive Guide ?Intact PTH ? Calcium [...] ORDERABLES Final Resul t [facility] [address], [place] [address], [employer] [facility] [address] [place] [address] * (ABNORMAL) Renal Function Panel (06/05/2023 11:53 AM EDT) Glucose 89 65 - 139 mg/dL 06/05/2023 10:49 PM EDT [employer] [facility] Comment: ? Non-fasting reference interval BUN 39(H) 7 - 25 mg/dL 06/05/2023 10:49 PM [employer] [facility] Creatinine 2.61(H) 0.50 - 1.03 mg/dL 06/05/2023 10:49 PM [employer] [facility] eGFR 21(L) > OR = 60 mL/min/1. 73m2 06/05/2023 10:49 PM [facility] [employer] [facility] Bun/Creatinine Ratio 15 6 - 22 (calc) 06/05/2023 10:49 PM [employer] [facility] Sodium 137 135 - 146 mmol/L 06/05/2023 10:49 PM [employer] [facility] Potassium 4.6 3.5 - 5.3 mmol/L 06/05/2023 10:49 PM [employer] [facility] Chloride 111(H) 98 - 110 mmol/L 06/05/2023 10:49 PM [employer] [facility] Carbon Dioxide 18(L) 20 - 32 mmol/L 06/05/2023 10:49 PM [facility] Calcium 9.8 8.6 - 10.4 mg/dL 06/05/2023 10:49 PM [employer] [facility] Phosphate 3.5 2.5 - 4.5 mg/dL 06/05/2023 10:49 PM [employer] [facility] Albumin 4.0 3.6 - 5.1 g/dL 06/05/2023 10:49 PM [employer] [facility] Blood Structure of peripheral vein / Unknown 06/05/2023 11:53 AM EDT 06/05/2023 7:56 PM EDT Narrative [facility] - 06/09/2023 5:04 AM EDT FASTING:NO us Anupamanahun Bynum DO LAB BLOOD ORDERABLES Final Resul t [facility] [address], [place] [address], [place] [phone] [facility] [address] [place] [address] from Last 3 Months or Most Recently Relevant to Health Maintenance Insurance * Guarantor: Aneta Gan Account Type Relation to Patient Date of Phone Billing Address Personal/Family Self 1965 [phone] (Work) [address] [place] [phone] [facility] Member Subscriber Plan / Payer (Ef fective 2018-Present) Name:Aneta Gan Relation to Subscriber:Self Name:Aneta Gan Payer ID:[id number] Type:HMO Address: [facility], [address] [place] [address] [place] [address] * Guarantor: Aneta Gan Account Type Relation to Patient Date of Phone Billing Address Transplant Self 1965 [phone] (Work) [address] [place] [phone] [facility] Care Teams Manager Insurance Relationship Specialty Start Date End Date Franklin Sanchez PA [address] [place] [phone] PCP - General 06/05/23
--- OUTSIDE RECORDS SUMMARY | 2024-12-15 15:10 | XMS_ITS | Encounter Summary ---
Author Organization [facility] Address [address] [place] [address] Care Team Providers Care Machine Clothing Man Name Role Phone Franklin Sanchez Primary Care Provider [phone] Reason for Referral * MRI/CAT/PET Scan (Routine) - Pending Review Specialty Diagnoses / Procedures Referred By Courtney vail Referred To Contact Diagnoses Pre-transplant evaluation for end stage renal disease Procedures CT Abdomen Pelvis without Contrast Franklin Flowers MD [address] [place] [address] Phone: tel: fax: Referral ID Status Reason Start Date Expiration Date V isits Requested Visits Authorized [id number] Pending Review 12/11/2024 06/12/2026 1 1 * Cardiac Diagnostic Testing (Routine) - Pending Review Specialty Diagnoses / Procedures Referred By Courtney vail Referred To Contact Diagnoses Pre-transplant evaluation for end stage renal disease Procedures Transthoracic echo (TTE) TRANSTHORACIC ECHO (TTE) TRANSTHORACIC ECHO (TTE) LIMITED TRANSTHORACIC ECHO (TTE) LIMITED W/ CONTRAST TRANSTHORACIC ECHO (TTE) LIMITED W/ COLOR TRANSTHORACIC ECHO (TTE) LIMITED W/ DOPPLER AND COLOR TRANSTHORACIC ECHO (TTE) LIMITED W/ DOPPLER, COLOR AND CONTRAST Franklin Flowers MD [address] [place] [address] Phone: tel: fax: Referral ID Status Reason Start Date Expiration Date V isits Requested Visits Authorized [id number] Pending Review 12/11/2024 06/12/2026 1 1 Reason for Visit * Reason Comments Kidney Eval * Transplant (Routine) - Authorized Specialty Diagnoses / Procedures Referred By Courtney vail Referred To Contact Transplant Diagnoses CKD (chronic kidney disease) [facility] [address] [place] [address] Phone: tel: fax: Referral ID Status Reason Start Date Expiration Date V isits Requested Visits Authorized [id number] Authorized 10/23/2024 10/24/2025 24 24 Encounter Details Date Type Department Care Team (Late st Contact Info) Description 12/11/2024 10:15 AM EDT Office Visit [facility] [address] [place] [phone] Franklin Flowers MD [address] [place] [address] Pre-transplant evaluation for kidney transplant (Primary Dx); Pre-transplant evaluation for end stage renal disease; Stage 5 chronic kidney disease not on chronic dialysis (HCC) Social History Tobacco Use Types Packs/Day [...] PM EDT documented as of this encounter Last Filed Vital Signs Vital Sign Reading [...] oz) 12/11/2024 8:12 AM E DT Height - - Body Mass Index 27.61 08/07/2023 8:16 AM EST documented in this encounter Progress Notes * Franklin Flowers MD - 12/11/2024 10:58 AM EDT TRANSPLANT NEPHROLOGY RECIPIENT EVALUATION Name: Aneta Gan Date of : 1965 Date of Service: 12/11/2024 Referring Physician/Head Stock Operator : Dr. Morrissey Chief Complaint Kidney transplant evaluation History of present illness Aneta Gan was seen in consultation on 12/11/24 at the Pre[facility]Kidney[facility]creas Transplant Evaluation [facility] in [facility] and was accompanied to this visit by son. Patient is a 59 y.o. female with CKD G5 with latest eGFR of 14 mL/min/BSA secondary to biopsy proven lupus nephritis. She is currently on low dose prednisone for the SLE that usually manifests with malar rash during flares. Her last flare was 2-3 years ago. She is also lupus anticoagulant positive and on anticoagulation with warfarin. She denies history of stroke/TIA, CAD, PE , any malignancy or claudication. Her routine cancer screening is up to date except pap smear. Pertinent history of kidney disease Lupus nephritis Anticoagulant positive Cardiovascular risk stratification CKD The patient is seeking renal transplantation as a potential treatment option for her kidney disease. I reviewed the patient's medical records and laboratory data provided as part of this evaluation process. Past Medical History Past Medical History: Diagnosis Date Deep vein thrombosis (HCC) Hypertension Membranous lupus glomerulonephritis (HCC) Proteinuria Systemic lupus erythematosus (HCC) Surgical History Past Surgical History: Procedure Laterality Date HYSTERECTOMY Family History Family History Problem Relation Age of Onset Hypertension Mother Diabetes Father Social History Social History Socioeconomic History Marital status: Single Spouse name: None Number of children: None Years of education: None Highest education level: None Occupational History None Tobacco Use Smoking status: Never Smokeless tobacco: Never Vaping Use Vaping status: Never Used Substance and Sexual Activity Alcohol use: Not Currently Drug use: Never Sexual activity: Defer Other Topics Concern None Social History Narrative None Social Drivers of Health Food: Not on file Transportation: Not on file Immunologic History: 1 miscarriage Blood transfusion : Yes Prior transplant and type : No Other allo-sensitizing procedure : No cPRA unknown Medication History Current Outpatient Medications Medication Sig Dispense Refill atorvastatin (LIPITOR) 20 mg tablet calcitrioL (ROCALTROL) 0.25 mcg capsule SMARTSI Capsule(s) By Mouth Daily calcium carbonate-vitamin D3 500 mg-200 units tablet Take 2 tablets by mouth once a day. cholecalciferol (VITAMIN D3) 2,000 unit capsule Take 2 capsules by mouth once a day. fluticasone propionate (FLONASE) 50 mcg/actuation nasal spray SMARTSI [place](s) Both Nares Twice Daily gabapentin (NEURONTIN) 100 mg capsule Take 2 capsules by mouth once a day. levothyroxine (SYNTHROID, LEVOTHROID) 100 mcg tablet Take 100 mcg by mouth daily. lisinopriL (PRINIVIL,ZESTRIL) 2.5 mg tablet Take 1 tablet (2.5 mg total) by mouth once a day. 90 tablet 3 predniSONE (DELTASONE) 2.5 mg tablet sodium bicarbonate 650 mg tablet SMARTSI Tablet(s) By Mouth Twice Daily warfarin (COUMADIN) 5 mg tablet Take 5 mg by mouth. Daily as directed No current facility-administered medications for this visit. Allergies Allergen Reactions Cephalexin Rash Review of Systems: Review of Systems Constitutional: Negative. Negative for appetite change, chills, diaphoresis, fatigue, fever and unexpected weight change. Eyes: Negative. Respiratory: Negative. Negative for apnea, shortness of breath and wheezing. Cardiovascular: Negative. Negative for chest pain, leg swelling and palpitations. Gastrointestinal: Negative. Negative for abdominal pain, blood in stool, constipation, diarrhea, nausea and vomiting. Genitourinary: Positive for kidney stone (once). Negative for difficulty urinating, dysuria and hematuria. Breast: Negative for breast discharge, breast mass, breast pain, no nipple bleeding and no nipple change. Endocrine: Negative. Negative for cold intolerance. Musculoskeletal: Negative. Skin: Negative. Negative for rash and wound. Allergic/Immunologic: Positive for immunocompromised state (on 2.5 mg daily of prednisone). Negative for environmental allergies. Neurological: Positive for tremors (within the past year). Negative for dizziness, headaches, light-headedness, numbness, tingling and weakness. Hematological: Bruises/bleeds easily (lupus anticoagulant positive). Psychiatric/Behavioral: Negative. Negative for sleep disturbance. The patient is not nervous/anxious. All other systems reviewed and are negative. Physical Examination: BP 139/88 (BP Location: Left arm, Patient Position: Sitting) Pulse 63 Temp 36.1 ??C (97 ??F) (Temporal) Resp 20 Wt 62 kg (136 lb 11 oz) SpO2 97% BMI 27.61 kg/m?? General examination: Well looking and not in acute distress HENT: Normocephalic and atraumatic. Oropharynx clear. Mucus membranes moist. No carotid bruits Eyes: Anicteric and not pale. Respiratory: Symmetrical chest expansion. Adequate air-entry bilaterally. No crackles or wheezes Cardiovascular: Regular rate and rhythm, no rubs, gallops. no murmur; no edema. Femoral pulses are intact. Dorsalis pedis pulses are present GI: Abd is soft and full. BS is present and normoactive. No tenderness. Lymphatic: No cervical or axillary adenopathy Musculoskeletal: Normal muscle tone, no clubbing, cyanosis. Integument: No lesions, rashes or ulcers Psychiatric: Normal mood and affect. Neurological: Alert and oriented x 3. No asterixis. No tremor. No clonus. Studies and Investigations for Initial listing: Echocardiogram CT abdomen/pelvis. Lupus serologies. Clearance from rheumatology. Impression: In summary, Aneta Gan is a 59 y.o. female with CKD G5 secondary to lupus nephritis and a Karnofsky performance status score of 90 who is an acceptable candidate for kidney transplantation. I explained the in-hospital course after kidney transplantation as well as the post-transplant follow-up and the absolute requirement for lifelong administration of immunosuppressive medications. Therisks of immunosuppression in general like infections and malignancies e.g. skin cancers and lymphomas as well as specific side effects of commonly used immunosuppressive medications were also reviewed. I also took the opportunity to review with patient the risks and benefits of accepting a kidney from HBV+ and HCV+ donors and organs from PHS increased risk donors. Organs with KDPI of 85% or greaterand opportunity kidneys were also discussed with patient. Patient was fully participatory during this discussion and clearly understood the information communicated. The patient is interested in both living donor and donor transplantation. There are no potential living donors at this time. The patient will also be meeting with our clinical social work therapist, financial counselor, infectious disease specialist and transplant surgeon. The patient`s candidacy will therefore be determined by the combined effort of the team. After the required laboratory testing has been completed, the patient will be placed on the donor waiting list. The patient was however informed that if her medical condition changes, the patient does not pass the medical/surgical testing protocol, or if the patient does not meet the body mass index criteria, transplantation will not be an option for the treatment ofher kidney disease. I, therefore, believe the patient has a good understanding of the risks and benefits associated with renal transplantation. We will review the patient's case with the transplant team at our weekly Multidisciplinary Selection Conference, attended by physicians, surgeons, nurse coordinators, social workers, and financial counselors. The final decision regarding this patient's transplant candidacy will be the responsibility of the combined team. Initial listing Plan: List after echocardiogram and CT abdomen. Tentative immunosuppression plan: Will be based on her immunologic risk. Thank you for referring Aneta Gan to our Transplant Service. If you have any questions or problems, please do not hesitate to contact me. I spent a total of about 60 minutes with patient during this encounter. Greater than 50% of the time spent was devoted to counseling and coordinating care including review of records, pertinent lab data and studies, as well as discussing diagnostic evaluation and work up, planned therapeutic interventions and future disposition of care. This includes any additional research needed to obtain further information in formulating the plan of care of this patient. Franklin Flowers MD Transplant Head Stock Operator. documented in this encounter Plan of Treatment Upcoming Encounters Date Type Department Care Team (Late st Contact Info) Description 12/08/2025 8:20 AM EDT Follow-Up [facility] [address] [place] [phone] Franklin Flowers MD [address] [place] [address] 12/08/2025 9:00 AM EDT Social Work [facility] [address] [place] [phone] Delores Sepulveda [address] [address] Scheduled Orders Name Type Priority Associated Diagnoses Order Schedule Transthoracic echo (TTE) Echocardiography Routine Pre-transplant evaluation for end stage renal disease Expected: 12/11/2024, Expires: 12/11/2026 CT Abdomen Pelvis without Contrast Imaging Routine Pre-transplant evaluation for end stage renal disease Expected: 12/11/2024, Expires: 02/10/2026 documented as of this encounter Visit Diagnoses Diagnosis Pre-transplant evaluation for kidney transplant- Primary Pre-transplant evaluation for end stage renal disease Other specified pre-operative examination Stage 5 chronic kidney disease not on chronic dialysis (HCC) documented in this encounter Care Teams Machine Clothing Man Relationship Specialty Start Date End Date Franklin Sanchez PA [address] [place] [address] PCP - General 06/05/23 documented as of this encounter
[2024-12-15 15:14] LABS: Prothrombin Time Whole Bld POC 21.8 sec (11.1-13.5); ~PT, ~INR - Anti Coag Clinic 1.8 (0.9-1.1)
--- NOTE | 2024-12-15 15:20 | MHC.OFFVISCO ---
Intake Intake Visit Reasons: Anticoagulation Allergies rituximab [From Rituxan] Allergy (Severe, Verified 12/15/24 15:08) Anaphylaxis cephalexin [From Keflex] Allergy (Unknown, Verified 12/15/24 15:08) RED+ITCHY,RASH Cephalosporins [CEPHALOSPORINS] Allergy (Unknown, Verified 12/15/24 15:08) RED+ITCHY Sulfa (Sulfonamide Antibiotics) [SULFA(SULFONAMIDE ANTIBIOTICS)] Allergy (Unknown, Verified 12/15/24 15:08) RED+ITCHY mycophenolate mofetil [From CellCept] Adverse Reaction (Intermediate, Verified 12/15/24 15:08) rash cellcept Allergy (Severe, Uncoded 12/15/24 15:08) Hives retuxin Adverse Reaction (Severe, Uncoded 12/15/24 15:08) Abdominal Pain Medication List - Last Reconciled 12/15/24 by Joann Braden, RN atorvastatin 20 mg PO BEDTIME 30 days calcitriol 0.25 mcg PO DAILY clobetasol 0.05% 1 appl topical DAILY fluocinonide 0.05% appl topical gabapentin 200 mg PO DAILY PRN levothyroxine 100 mcg PO DAILY lisinopril 2.5 mg PO DAILY loratadine 10 mg PO DAILY PRN magnesium oxide 250 mg PO BID prednisone 2.5 mg PO DAILY sodium bicarbonate 650 mg PO BID warfarin 5 mg See Protocol PO DAILY Nursing Note INR: 1.8?out of therapeutic range of 2-3 Medications and supplements reviewed Patient status: feels well, states she is now on the list for a kidney transplant. Medications or supplements: no changes Diet: same Denies any signs and symptoms of bleeding or clotting or unusual bruising Bleeding, bruising, clotting discussed Nutritional guidance given: to avoid greens today Dose: increase today's dose to 5mg then resume usual dose of 2.5mg daily Starting next week, will increas weekly dose to 2.5mg X 5 days and 5mg X 1 day and total increase of 2.5mg weekly F/U INR Date: 12/23/24?? Patient verbalizing understanding of instructions given. Anti-Coag Initial Assessment Social Hx Patient Tobacco Use Status: Former Tobacco user Tobacco use type: Cigarette alcohol intake: former Alcohol intake frequency: does not drink Coding Level of Care Code Est Patient Level 1 Diagnoses Current use of anticoagulant therapy Z79.01 Assessment & Plan Assessment & Plan (1) Current use of anticoagulant therapy: Code(s): Z79.01 - [facility] (current) use of anticoagulants Category: Medical
== END 2024-12-15 15:24 | disposition home or self-care (01) ==
LOC: HO.ACS 15:07
PROVIDERS: PCP Physician Assistant; Visit Provider Internal Medicine Medical Oncology
DX: Z79.01 Long term (current) use of anticoagulants (principal)

== ENCOUNTER → 2024-12-15 15:07 | Outpatient (BNVA) | payer OTHER, MEDICAID, SELFPAY | PROVIDERS: PCP Physician Assistant; Visit Provider Internal Medicine Medical Oncology | DX: I26.99 Other pulmonary embolism without acute cor pulmonale (principal); Z51.81 Encounter for therapeutic drug level monitoring; Z79.01 Long term (current) use of anticoagulants | CPT/HCPCS: 85610; 99211 ==

== ENCOUNTER 2024-12-23 15:12 | Outpatient (AMB) | payer OTHER, MEDICAID, SELFPAY ==
[2024-12-23 15:18] LABS: Prothrombin Time Whole Bld POC 33.9 sec (11.1-13.5); ~PT, ~INR - Anti Coag Clinic 2.8 (0.9-1.1)
--- NOTE | 2024-12-23 15:25 | MHC.OFFVISCO ---
Intake Intake Visit Reasons: Anticoagulation Allergies rituximab [From Rituxan] Allergy (Severe, Verified 12/23/24 15:13) Anaphylaxis cephalexin [From Keflex] Allergy (Unknown, Verified 12/23/24 15:13) RED+ITCHY,RASH Cephalosporins [CEPHALOSPORINS] Allergy (Unknown, Verified 12/23/24 15:13) RED+ITCHY Sulfa (Sulfonamide Antibiotics) [SULFA(SULFONAMIDE ANTIBIOTICS)] Allergy (Unknown, Verified 12/23/24 15:13) RED+ITCHY mycophenolate mofetil [From CellCept] Adverse Reaction (Intermediate, Verified 12/23/24 15:13) rash cellcept Allergy (Severe, Uncoded 12/15/24 15:08) Hives retuxin Adverse Reaction (Severe, Uncoded 12/15/24 15:08) Abdominal Pain Medication List - Last Reconciled 12/23/24 by Stephanie Tran, RN atorvastatin 20 mg PO BEDTIME 30 days calcitriol 0.25 mcg PO DAILY clobetasol 0.05% 1 appl topical DAILY fluocinonide 0.05% appl topical gabapentin 200 mg PO DAILY PRN levothyroxine 100 mcg PO DAILY lisinopril 2.5 mg PO DAILY loratadine 10 mg PO DAILY PRN magnesium oxide 250 mg PO BID prednisone 2.5 mg PO DAILY sodium bicarbonate 650 mg PO BID warfarin 5 mg See Protocol PO DAILY Nursing Note NO CP,SOB,DIET/MED CHANGES,FALLS OR SX OF BLEEDING. CONTINUE PRESENT DOSING AND FOLLOW-UP IN 3 WEEKS. GOOD UNDERSTANDING OF DOSING INSTR. Anti-Coag Initial Assessment Social Hx Patient Tobacco Use Status: Former Tobacco user Tobacco use type: Cigarette alcohol intake: former Alcohol intake frequency: does not drink Coding Level of Care Code Est Patient Level 1 Diagnoses Current use of anticoagulant therapy Z79.01 Assessment & Plan Assessment & Plan (1) Current use of anticoagulant therapy: Code(s): Z79.01 - long term care pharmacist (current) use of anticoagulants Category: Medical
--- OUTSIDE RECORDS SUMMARY | 2024-12-23 16:17 | XMS_ITS | Referral Summary ---
Author Organization [facility] Address [address] [place] [address] Care Team Providers Care It Support Specialist Name Role Phone Franklin Sanchez Primary Care Provider [phone] Encounters Date Type Department Care Team Description 12/18/2024 Telephone [facility] Transplant Department [address] [place] [address] Zenobia Zepeda, RN 12/12/2024 Telephone [facility] Transplant Department [address] [place] [address] Linh Patel RN 12/12/2024 Documentation [facility] Transplant Department [address] [place] [address] Delores Sepulveda LICSW 12/11/2024 12:00 PM EDT Lab [facility] Draw Site [address] [place] [address] Pre-transplant evaluation for end stage renal disease; Chronic kidney disease, stage IV (severe) (HCC) 12/11/2024 10:15 AM EDT Office Visit [facility] Renal Transplant [address] [place] [address] Franklin Flowers MD Pre-transplant evaluation for kidney transplant (Primary Dx); Pre-transplant evaluation for end stage renal disease; Stage 5 chronic kidney disease not on chronic dialysis (HCC) 12/11/2024 9:30 AM EDT Social Work [facility] Renal Transplant [address] [place] [address] Delores Sepulveda LICSW 12/11/2024 8:30 AM EDT Evaluation [facility] Renal Transplant [address] [place] [address] Zenobia Zepeda, PRIYANK Pre-transplant evaluation for kidney transplant (Primary Dx); ESRD (end stage renal disease) ([facility]) 12/11/2024 8:00 AM EDT Office Visit [facility] Renal Transplant [address] [place] [address] Evon Sierra LPN Pre-transplant evaluation for kidney transplant (Primary Dx) 12/08/2024 Telephone [facility] Transplant Department [address] [place] [address] Zenobia Zepeda RN 12/04/2024 Orders Only [facility] Transplant Department [address] [place] [address] Zenobia Zepeda RN Pre-transplant evaluation for end stage renal disease (Primary Dx); Chronic kidney disease, stage IV (severe) ([facility]) 10/30/2024 Telephone [facility] Transplant Department [address] [place] [address] Zenobia Zepeda, PRIYANK from Last 3 Months Allergies Active Allergy [...] propionate (FLONASE) 50 mcg/actuation nasal spray SM[employer] [place](s) Both Nares Twice Daily 09/08/19 25 Active [...] Info) Description 12/08/2025 8:20 AM EDT Follow-Up [facility] Renal Transplant [address] [place] [address] Franklin Flowers MD [address] [place] [address] 12/08/2025 9:00 AM EDT Social Work [facility] Renal Transplant [address] [place] [address] Delores Sepulveda LICSW [address] [place] [address] Procedures * Due to [place] state law, [...] IV (severe) (HCC) QUANTIFERON-TB GOLD PLUS, 1 [id number] Routine 12/11/2024 12:08 PM EDT Pre-transplant evaluation for end stage renal disease Chronic kidney disease, stage IV (severe) (HCC) RPR (DIAGNOSIS) W/REFLEX TO TITER & TPPA [id number] Routine 12/11/2024 12:08 PM EDT Pre-transplant evaluation for end stage renal disease Chronic kidney disease, stage IV (severe) (HCC) VARICELLA ZOSTER ANTIBODY, IGG Routine 12/11/2024 12:08 PM EDT Pre-transplant evaluation for end stage renal disease Chronic kidney disease, stage IV (severe) (HCC) HLA TRANSPLANT WORK-UP (ALLELE LEVEL A/B/C/DRB1/DKK382/DQA 1/DQB1/DPA1/DPB1) Routine 12/11/2024 12:08 PM EDT Pre-transplant evaluation [...] not be sharing negative HIV tests. * HLA Transplan Work-Up(Allele Level A/B/C/DRB1/UWR945/DQA1/DQB1/DPA1/DPB1) (12/11/2024 12:08 PM EDT) Pathologist [facility] Information See Below 12/16/2024 4:30 PM EDT [facility] Comment: SUNI: ??19-1-MM-12-1 ?Director: ??Hussein Olivo MD. [facility] PFI: ??[id number] UNOS: ??[id number] This test was developed and its performance characteristics determined by this laboratory. It has not been cleared or approved by the U.S. Food and Drug Administration. The FDA has determined that such clearance or approval is not necessary. This test is used for clinical purposes. It should not be regarded as investigational or for research. This laboratory is certified under the Clinical Laboratory Improvement Amendments of 1988 (CLIA-88) as qualified to perform high complexity clinical laboratory testing. C*-1 C*04:01 12/16/2024 4:30 PM EDT [facility] C*-2 DATA NOT REPORTED 12/16/2024 4:30 PM EDT [facility] C*-1 NMDP DATA NOT REPORTED 12/16/2024 4:30 PM EDT [facility] C*-2 NMDP DATA NOT REPORTED 12/16/2024 4:30 PM EDT [facility] Test Method NGS 12/16/2024 4:30 PM EDT [facility] DPB1-1 DPB*01:01 12/16/2024 4:30 PM EDT [facility] DPB1-2 DPB*04:02P 12/16/2024 4:30 PM EDT [facility] DPB1-1 NMDP DATA NOT REPORTED 12/16/2024 4:30 PM EDT [facility] DPB1-2 NMDP DATA NOT REPORTED 12/16/2024 4:30 PM EDT [facility] B*-1 B*53:01 12/16/2024 4:30 PM EDT [facility] B*-2 DATA NOT REPORTED 12/16/2024 4:30 PM EDT [facility] B*-1 NMDP DATA NOT REPORTED 12/16/2024 4:30 PM EDT [facility] B*-2 NMDP DATA NOT REPORTED 12/16/2024 4:30 PM EDT [facility] DRB3-1 DATA NOT REPORTED 12/16/2024 4:30 PM EDT [facility] DRB3-2 DATA NOT REPORTED 12/16/2024 4:30 PM EDT [facility] DRB3-1 NMDP DATA NOT REPORTED 12/16/2024 4:30 PM EDT [facility] DRB3-2 NMDP DATA NOT REPORTED 12/16/2024 4:30 PM EDT [facility] DRB4-1 4*01:01P 12/16/2024 4:30 PM EDT [facility] DRB4-2 DATA NOT REPORTED 12/16/2024 4:30 PM EDT [facility] DRB4-1 NMDP DATA NOT REPORTED 12/16/2024 4:30 PM EDT [facility] DRB4-2 NMDP DATA NOT REPORTED 12/16/2024 4:30 PM EDT [facility] DRB5-1 DATA NOT REPORTED 12/16/2024 4:30 PM EDT [facility] DRB5-2 5*01:01P 12/16/2024 4:30 PM EDT [facility] DRB5-1 NMDP DATA NOT REPORTED 12/16/2024 4:30 PM EDT [facility] DRB5-2 NMDP DATA NOT REPORTED 12/16/2024 4:30 PM EDT [facility] A*-1 A*02:02 12/16/2024 4:30 PM EDT [facility] A*-2 A*66:03 12/16/2024 4:30 PM EDT [facility] A*-1 NMDP DATA NOT REPORTED 12/16/2024 4:30 PM EDT [facility] A*-2 NMDP DATA NOT REPORTED 12/16/2024 4:30 PM EDT [facility] DQB1-1 DQB*02:02 12/16/2024 4:30 PM EDT [facility] DQB1-2 DQB*06:02 12/16/2024 4:30 PM EDT [facility] DQB1-1 NMDP DATA NOT REPORTED 12/16/2024 4:30 PM EDT [facility] DQB1-2 NMDP DATA NOT REPORTED 12/16/2024 4:30 PM EDT [facility] DPA1-1 DPA*02:02 12/16/2024 4:30 PM EDT [facility] DPA1-2 DPA*03:01 12/16/2024 4:30 PM EDT [facility] DPA1-1 NMDP DATA NOT REPORTED 12/16/2024 4:30 PM EDT [facility] DPA1-2 NMDP DATA NOT REPORTED 12/16/2024 4:30 PM EDT [facility] DRB1-1 DR*09:01 12/16/2024 4:30 PM EDT [facility] DRB1-2 DR*15:03P 12/16/2024 4:30 PM EDT [facility] DRB1-1 NMDP DATA NOT REPORTED 12/16/2024 4:30 PM EDT [facility] DRB1-2 NMDP DATA NOT REPORTED 12/16/2024 4:30 PM EDT [facility] DQA1-1 DQA*01:02 12/16/2024 4:30 PM EDT [facility] DQA1-2 DQA*03:03 12/16/2024 4:30 PM EDT [facility] DQA1-1 NMDP DATA NOT REPORTED 12/16/2024 4:30 PM EDT [facility] DQA1-2 NMDP DATA NOT REPORTED 12/16/2024 4:30 PM EDT [facility] Blood Structure of peripheral vein / Unknown Venipuncture / Unknown 12/11/2024 12:08 PM EDT 12/11/2024 12:22 PM EDT Franklin Flowers MD HLA LAB ORDERABLES Edited Result - Final [facility] [address] [facility] Rm: [id number] [place] [address], * MMR Panel, IgG (12/11/2024 12:08 PM EDT) Measles Antibody (IgG), Immune Status >300.00 AU/mL 12/11/2024 9:31 PM EDT [facility] Comment: AU/mL ?Interpretation ----- ? <13.50 ? Not consistent with immunity 13.50-16.49 ?Equivocal >16.49 ? Consistent with immunity The presence of measles IgG suggests immunization or past or current infection with measles virus. For additional information, please refer to [email or web address]/faq/ZZE777 (This link is being provided for informational/ educational purposes only.) Mumps Antibody (IgG), Immune Status 114.00 AU/mL 12/11/2024 9:31 PM EDT [facility] Comment: AU/mL ? Interpretation ------- ? <9.00 ? Not consistent with immunity 9.00-10.99 ?Equivocal >10.99 ?Consistent with immunity The presence of mumps IgG antibody suggests immunization or past or current infection with mumps virus. Rubella Antibody (IgG), Immune Status 20.40 Index 12/11/2024 9:31 PM EDT [facility] Comment: ?Index ?Interpretation ?----- ?<0.90 ?Not consistent with immunity ?0.90-0.99 ?Equivocal ?> or = 1.00 ?Consistent with immunity The presence of rubella IgG antibody suggests immunization or past or current infection with rubella virus. Blood Structure of peripheral vein / Unknown Venipuncture / Unknown 12/11/2024 12:08 PM EDT 12/11/2024 12:23 PM EDT [facility]ative [facility] - 12/11/2024 9:31 PM EDT [facility] Received Date:[id number] us Franklin Flowers MD LAB BLOOD ORDERABLES [place] Result [facility] [address] [facility] 3rd Floor, [place] [address], [facility] 200 [facility] 3rd Floor, [place] [address], * (ABNORMAL) Herpes Simplex Virus 1&2, IgG (12/11/2024 12:08 PM EDT) Pathologist [facility] HSV 1 IgG Type Specific Ab 44.60(H) index 12/12/2024 4:21 AM EDT [facility] HSV 2 IgG Type Specific Ab 14.90(H) index 12/12/2024 4:21 AM EDT [facility] Comment: ?Index ?Interpretation ?----- ?<0.90 ?Negative [...] screening. For additional information, please refer to http://education.[employer]/faq/LWW103 (This link is being provided for informational/ educational purposes only.) ?? Blood Structure of peripheral vein / Unknown Venipuncture / Unknown 12/11/2024 12:08 PM EDT 12/11/2024 12:24 PM EDT Narrative [facility] [place] - 12/12/2024 4:21 AM EDT [facility] Received Date: Franklin Flowers MD LAB BLOOD ORDERABLES [place] l Result [facility] [address], [place] [address], [facility] [address], [place] [address], * RPR (Diagnosis) w/Reflex to Titer & TPPA Confirm (12/11/2024 12:08 PM EDT) RPR W/Refl Titer NON-REACT MARSHALL NON-REACT MARSHALL 12/12/2024 11:54 AM EDT [facility] Blood Structure of peripheral vein / Unknown Venipuncture / Unknown 12/11/2024 12:08 PM EDT 12/11/2024 12:24 PM EDT Narrative [facility] [place] - 12/12/2024 11:54 AM EDT [facility] Received Date: Franklin Flowers MD LAB BLOOD ORDERABLES [place] Result [facility] [address] [facility] 3rd Floor, [place] [address], [facility] 200 [facility] 3rd Floor, [address] [place] [address], * QuantiFERON-TB Gold Plus, 1 Tube (12/11/2024 12:08 PM EDT) [facility] QuantiFERON-TB Gold Plus NEGATIVE NEGATIVE 12/14/2024 2:16 AM EDT [facility] Comment: Negative test result. M. tuberculosis complex infection unlikely. NIL 0.03 IU/mL 12/14/2024 2:16 AM EDT [facility] Mitogen-NIL 9.50 IU/mL 12/14/2024 2:16 AM EDT [facility] TB1-NIL 0.02 IU/mL 12/14/2024 2:16 AM EDT [facility] TB2-NIL 0.01 IU/mL 12/14/2024 2:16 AM EDT [facility] Comment: The Nil tube value reflects [...] T-lymphocytes. For additional information, please refer to https://education.[employer]faq/NFD313 (This link is being provided for informational/ educational purposes only.) Blood Structure of peripheral vein / Unknown Venipuncture / Unknown 12/11/2024 12:08 PM EDT 12/11/2024 12:22 PM EDT Narrative [facility] [place] - 12/14/2024 2:16 AM EDT [facility] Received Date: Franklin Flowers MD LAB BLOOD ORDERABLES [place] Result [facility] [place] [address] [facility] 3rd Floor, [place] [address], [place] [phone] [facility] 200 [facility] 3rd Floor, [place] [address], [place] [phone] * (ABNORMAL) CBC Auto Differential (12/11/2024 12:08 PM EDT) WBC 6.6 3.8 - 10.8 10*3/uL 12/11/2024 12:32 PM EDT [facility] RBC 3.52(L) 3.80 - 5.10 10*6/uL 12/11/2024 12:32 PM EDT [facility] Hemoglobin 10.4(L) 11.7 - 15.5 g/dL 12/11/2024 12:32 PM EDT [facility] Hematocrit 33.1(L) 35.0 - 45.0 % 12/11/2024 12:32 PM EDT [facility] MCV 94.0 80.0 - 100.0 fL 12/11/2024 12:32 PM EDT [facility] MCH 29.5 27.0 - 33.0 pg 12/11/2024 12:32 PM EDT [facility] MCHC 31.4(L) 32.0 - 36.0 g/dL 12/11/2024 12:32 PM EDT [facility] RDW 13.3 11.0 - 15.0 % 12/11/2024 12:32 PM EDT [facility] Platelets 289 140 - 400 10*3/uL 12/11/2024 12:32 PM EDT [facility] MPV 10.4 7.5 - 12.5 fL 12/11/2024 12:32 PM EDT [facility] Neutrophil % 58.9 % 12/11/2024 12:32 PM EDT [facility] Immature Grans % 0.5 0.0 - 0.9 % 12/11/2024 12:32 PM EDT [facility] Lymphocyte % 30.5 % 12/11/2024 12:32 PM EDT [facility] Monocyte % 5.8 % 12/11/2024 12:32 PM EDT [facility] Eosinophil % 3.8 % 12/11/2024 12:32 PM EDT [facility] Basophil % 0.5 % 12/11/2024 12:32 PM EDT [facility] Neutrophil # 3.86 1.50 - 7.80 10*3/uL 12/11/2024 12:32 PM EDT [facility] Immature Grans # 0.03 <=0.03 10*3/uL 12/11/2024 12:32 PM EDT [facility] Lymphocyte # 2.00 0.85 - 3.90 10*3/uL 12/11/2024 12:32 PM EDT [facility] Monocyte # 0.40 0.20 - 0.95 10*3/uL 12/11/2024 12:32 PM EDT [facility] Eosinophil # 0.30 0.02 - 0.50 10*3/uL 12/11/2024 12:32 PM EDT [facility] Basophil # <0.03 0.00 - 0.20 10*3/uL 12/11/2024 12:32 PM EDT [facility] nRBC % 0.0 /100 WBCs 12/11/2024 12:32 PM EDT [facility] nRBC # <0.01 <0.01 10*3/uL 12/11/2024 12:32 PM EDT [facility] Blood Structure of peripheral vein / Unknown Venipuncture / Unknown 12/11/2024 12:08 PM EDT 12/11/2024 12:24 PM EDT Franklin Flowers MD LAB BLOOD ORDERABLES [place] Result [facility] [address] [place] [address], * (ABNORMAL) Timo-Lee Virus VCA Antibody Panel (12/11/2024 12:08 PM EDT) EBV Viral Capsid Ag Ab (IGM) <36.00 U/mL 12/12/2024 4:20 AM EDT [facility] Comment: ?U/mL ?Interpretation ?---- ?<36.00 ?Negative ?36.00-43.99 ? Equivocal ?>43.99 ?Positive EBV Viral Capsid Ag Ab (IGG) 386.00(H) U/mL 12/12/2024 4:20 AM EDT [facility] Comment: ? U/mL ? Interpretation ? ---- ? <18.00 ? Negative ? 18.00-21.99 ?Equivocal ? >21.99 ? Positive EBV Nuclear Ag Ab >600.00(H) U/mL 025 4:20 AM EDT [facility] Comment: ? U/mL ? Interpretation ? ---- ? <18.00 ? Negative ? 18.00-21.99 ?Equivocal ? >21.99 ? Positive Interpretation: See Comments 12/12/2024 4:20 AM EDT [facility] Comment: Suggestive of a past Timo-Lee virus infection. In infants, a similar pattern may occur as a result of passive maternal transfer of antibody. Blood Structure of peripheral vein / Unknown Venipuncture / Unknown 12/11/2024 12:08 PM EDT 12/11/2024 12:23 PM EDT Narrative [facility] - 12/12/2024 4:20 AM EDT [facility] Received Date: Franklin Flowers MD LAB BLOOD ORDERABLES [place] Result [facility] 200 [facility] [address] [facility], [place] [address], [facility] 200 [facility] 3rd Floor, [place] [address], * Hepatitis C Antibody w/Reflex to PCR (12/11/2024 12:08 PM EDT) Hepatitis C Antibody NON-REACT MARSHALL NON-REACT MARSHALL 12/12/2024 6:33 AM EDT [facility] Comment: HCV antibody was non-reactive. There is no laboratory evidence of HCV infection. In most cases, no further action is required. However, if recent HCV exposure is suspected, a test for HCV RNA (test code 51499) is suggested. For additional information please refer to http://Nuvyyo.[employer]faq/SVR24i3 (This link is being provided for informational/ educational purposes only.) Blood Structure of peripheral vein / Unknown Venipuncture / Unknown 12/11/2024 12:08 PM EDT 12/11/2024 12:23 PM EDT Narrative [facility] [place] - 12/12/2024 6:33 AM EDT [facility] Received Date: Franklin Flowers MD LAB BLOOD ORDERABLES [place] l Result Performing Organization Address City/[facility]/ZIP Co de Phone Number [facility] [place] [address], [place] [address], [place] [phone] [facility] [address], [place] [address], * (ABNORMAL) Hepatitis A Antibody, Total (12/11/2024 12:08 PM EDT) Hepatitis A Ab, Total REACTIVE( A) NON-REACT MARSHALL 12/12/2024 5:23 AM EDT [facility] Comment: For additional information, please refer to http://Nuvyyo.[employer]faq/HMT572 (This link is being provided for informational/ educational purposes only.) Blood Structure of peripheral vein / Unknown Venipuncture / Unknown 12/11/2024 12:08 PM EDT 12/11/2024 12:23 PM EDT Narrative [facility] [place] - 12/12/2024 5:23 AM EDT [facility] Received Date: Franklin Flowers MD LAB BLOOD ORDERABLES [place] Result [facility] [place] [address] [facility] [address] [facility], [place] [address], [place] [phone] [facility] [address], [place] [address], [place] [phone] * Hepatitis B Core Antibody, Total (12/11/2024 12:08 PM EDT) Hepatitis B Core Ab Total NON-REACT MARSHALL NON-REACT MARSHALL 12/11/2024 9:08 PM EDT [facility] Comment: For additional information, please refer to http://education.[employer]faq/FZB784 (This link is being provided for informational/ educational purposes only.) Blood Structure of peripheral vein / Unknown Venipuncture / Unknown 12/11/2024 12:08 PM EDT 12/11/2024 12:24 PM EDT Narrative [facility] - 12/11/2024 9:08 PM EDT [facility] Received Date: us Franklin Flowers MD LAB BLOOD ORDERABLES [place] Result [facility] [address] [facility] 3rd Floor, [place] [address], [place] [phone] [facility] [address], [place] [address], [place] [phone] * ABO/Rh Blood Type (12/11/2024 12:08 PM EDT) ABO Blood Type AB 12/11/2024 1:50 PM EDT [facility] RH Type Positive 12/11/2024 1:50 PM EDT [facility] Blood Structure of peripheral vein / Unknown Venipuncture / Unknown 12/11/2024 12:08 PM EDT 12/11/2024 1:04 PM EDT us Franklin Flowers MD LAB BLOOD BANK TEST ORDER HENRY Final Result [facility] [address] [place] [address], [place] [phone] * (ABNORMAL) Hepatitis B Surface Antibody (12/11/2024 12:08 PM EDT) Hepatitis B Surface Ab Immunity, Qn <5(L) > OR = 10 mIU/mL 12/12/2024 4:47 AM EDT [facility] Comment: PATIENT DOES NOT HAVE IMMUNITY TO HEPATITIS B VIRUS. For additional information, please refer to [email or web address].[employer]faq/SON236 (This link is being provided for informational/ educational purposes only). Blood Structure of peripheral vein / Unknown Venipuncture / Unknown 12/11/2024 12:08 PM EDT 12/11/2024 12:23 PM EDT Narrative [facility] - 12/12/2024 4:47 AM EDT [facility] Received Date: us Franklin Flowers MD LAB BLOOD ORDERABLES [place] l Result [facility] [address] [facility] 3rd Floor, [place] [address], [facility] 200 [facility] 3rd Floor, [place] [address], * Hepatitis B Surface Antigen w/Confirmation (12/11/2024 12:08 PM EDT) Pathologist [facility] Hepatitis B Surface Antigen NON-REACT MARSHALL NON-REACT MARSHALL 12/11/2024 9:08 PM EDT [facility] Comment: For additional information, please refer to http://Nuvyyo.[employer]faq/LWU060 (This link is being provided for informational/ educational purposes only.) Blood Structure of peripheral vein / Unknown Venipuncture / Unknown 12/11/2024 12:08 PM EDT 12/11/2024 12:23 PM EDT Narrative [facility] [place] - 12/11/2024 9:08 PM EDT [facility] Received Date: us Franklin Flowers MD LAB BLOOD ORDERABLES [place] Result Performing Organization Address City/[facility]/ZIP Co de Phone Number [facility] [address] [facility] [address], [place] [address], [facility] 200 [facility] 3rd Floor, [address] [place] [address], [place] [phone] * (ABNORMAL) Cytomegalovirus Antibody, IgG (12/11/2024 12:08 PM EDT) Cytomegalovirus Antibody (IgG) >10.00(H ) U/mL 12/11/2024 9:30 PM EDT [facility] Comment: ? U/mL ? Interpretation ? ----- [...] - 12/11/2024 9:30 PM EDT [facility] Received Date:[id number] Franklin Flowers MD LAB BLOOD ORDERABLES [place] Result Performing Organization Address City/[facility]/ZIP Co de Phone Number [facility] N[facility] [address] [facility] [address]rd [address], [place] [address], [place] [phone] [facility] 200 [facility] 3rd Floor, [place] [address], [place] [phone] * (ABNORMAL) PTT (12/11/2024 12:08 PM EDT) aPTT 36.4(H) 23.0 - 32.0 Seconds 12/11/2024 12:48 PM EDT [facility] Comment: Current PTT reagent is not sensitive to detect all Lupus Anticoagulant (LA) Inhibitor Cases. ?? If a LA is suspected, please order a Lupus Anticoagulation w/ Reflex Test which is performed at [facility] in [place], [place]. Blood Structure of peripheral vein / Unknown Venipuncture / Unknown 12/11/2024 12:08 PM EDT 12/11/2024 12:24 PM EDT Franklin Flowers MD LAB BLOOD ORDERABLES [facility] [address] [place] [address], * (ABNORMAL) Protime-INR (12/11/2024 12:08 PM EDT) PT 23.5(H) 9.6 - 12.4 Seconds 12/11/2024 12:48 PM EDT [facility] INR 2.3 0.9 - 1.1 12/11/2024 12:48 PM EDT [facility] LABORATORY Comment:The optimal therapeu tic INR range for patients treated with Vitamin K antagonists (VKAS, e.g., Warfarin) is 2.0 to 3.5. Discuss the desired range with your doctor/care team. Blood Structure of peripheral vein / Unknown Venipuncture / Unknown 12/11/2024 12:08 PM EDT 12/11/2024 12:24 PM EDT Franklin Flowers MD LAB BLOOD ORDERABLES [place] Result [facility] [address] [place] [address], * Varicella Zoster Antibody, IgG (12/11/2024 12:08 PM EDT) Varicella Zoster Virus Antibody 32.50 S/CO 12/12/2024 4:28 AM EDT [facility] Comment: ?Signal to Cut-off ? S/CO ?Interpretation [...] EDT 12/11/2024 12:24 PM EDT Narrative [facility] - 12/12/2024 4:28 AM EDT [facility] Received Date:[id number] Franklin Flowers MD LAB BLOOD ORDERABLES [place] l Result [facility] [address] [facility] 3rd Floor, [place] [address], [place] [phone] [facility] [address] [facility] 3rd Floor, [place] [address], [place] [phone] * (ABNORMAL) BUN (12/11/2024 12:08 PM EDT) BUN 41(H) 7 - 23 mg/dL 12/11/2024 12:59 PM EDT [facility] Blood Structure of peripheral vein / Unknown Venipuncture / Unknown 12/11/2024 12:08 PM EDT 12/11/2024 12:26 PM EDT Franklin Flowers MD LAB BLOOD ORDERABLES [place] Result [facility] [address] [place] [address], [place] * ALT (12/11/2024 12:08 PM EDT) ALT 20 10 - 40 U/L 12/11/2024 12:59 PM EDT [facility] Blood Structure of peripheral vein / Unknown Venipuncture / Unknown 12/11/2024 12:08 PM EDT 12/11/2024 12:26 PM EDT Franklin Flowers MD LAB BLOOD ORDERABLES [place] Result [facility] [address] [place] [phone], [place] * AST (12/11/2024 12:08 PM EDT) AST 30 10 - 40 U/L 12/11/2024 12:59 PM EDT [facility] Blood Structure of peripheral vein / Unknown Venipuncture / Unknown 12/11/2024 12:08 PM EDT 12/11/2024 12:26 PM EDT Franklin Flowers MD LAB BLOOD ORDERABLES [place] l Result Performing Organization Address [facility]/ZIP Co de Phone Number [facility] [address] [place] [address], * Phosphorus (12/11/2024 12:08 PM EDT) Phosphorus 3.4 2.5 - 4.5 mg/dL 12/11/2024 12:59 PM EDT [facility] Blood Structure of peripheral vein / Unknown Venipuncture / Unknown 12/11/2024 12:08 PM EDT 12/11/2024 12:26 PM EDT Franklin Flowers MD LAB BLOOD ORDERABLES [place] l Result Performing Organization Address [facility] de Phone Number [facility] [address] [place] [address], * (ABNORMAL) Creatinine (12/11/2024 12:08 PM EDT) Creatinine 3.06(H) 0.50 - 1.20 mg/dL 12/11/2024 12:59 PM EDT [facility] eGFR 17(L) >=60 mL/min/1 .73m2 12/11/2024 12:59 PM EDT [facility] Comment:The estimated glomer ular [...] ORDERABLES [place] Result Performing Organization Address [facility]/ZIP Co de Phone Number [facility] [address] [place] [phone], [place] * (ABNORMAL) Calcium (12/11/2024 12:08 PM EDT) Calcium 10.7(H) 8.6 - 10.5 mg/dL 12/11/2024 12:59 PM EDT [facility] Blood Structure of peripheral vein / Unknown Venipuncture / Unknown 12/11/2024 12:08 PM EDT 12/11/2024 12:26 PM EDT Franklin Flowers MD LAB BLOOD ORDERABLES [place] Result Performing Organization Address [facility] Co de Phone Number [facility] [address] [place] [phone], [place] * Bilirubin, Direct (12/11/2024 12:08 PM EDT) Bilirubin, Direct 0.2 <=0.4 mg/dL 12/11/2024 12:59 PM EDT [facility] Blood Structure of peripheral vein / Unknown Venipuncture / Unknown 12/11/2024 12:08 PM EDT 12/11/2024 12:26 PM EDT Franklin Floewrs MD LAB BLOOD ORDERABLES [place] l Result Performing Organization Address City/[facility]/ZIP Co de Phone Number [facility] [address] [place] [phone], [place] * Bilirubin, Total (12/11/2024 12:08 PM EDT) Bilirubin, Total 0.5 0.2 - 1.2 mg/dL 12/11/2024 12:59 PM EDT [email or web address] Blood Structure of peripheral vein / Unknown Venipuncture / Unknown 12/11/2024 12:08 PM EDT 12/11/2024 12:26 PM EDT Franklin Flowers MD LAB BLOOD ORDERABLES [place] l Result Performing Organization Address City/[facility]/ZIP Co de Phone Number [facility]ITALInnotrieveOHIO[facility] [employer] [facility] [address] [place] [address], * Albumin (12/11/2024 12:08 PM EDT) Pathologist [facility] Albumin 4.2 3.5 - 5.2 g/dL 12/11/2024 12:59 PM EDT [facility] [employer] [facility] Blood Structure of peripheral vein / Unknown Venipuncture / Unknown 12/11/2024 12:08 PM EDT 12/11/2024 12:26 PM EDT Franklin Flowers MD LAB BLOOD ORDERABLES [place] Result [facility] [employer] [facility] [address] [place] [address], * (ABNORMAL) Microalbumin, Random Urine with Creatinine (08/07/2023 9:01 AM EST) Creatinine, Random Urine 92 20 - 275 mg/dL 08/08/2023 6:45 PM EST [facility] Microalbumin 150.8 mg/dL 08/08/2023 6:45 PM EST [facility] Comment: Verified by repeat analysis. Reference Range Not established Microalbumin/Crea tinine Ratio, Random Urine 1,639(H) <30 mcg/mg creat 08/08/2023 6:45 PM EST [facility] Comment: The ADA defines abnormalities in albumin [...] ORDERABLES Final Resul t [facility] [address] [facility] 3rd Floor, [place] [address], [place] [phone] [employer] [facility] [address] [place] [address] * (ABNORMAL) Vitamin D, 25-Hydroxy, Total, Immunoassay (06/05/2023 11:53 AM EDT) Calcidiol+ercalc idiol 22(L) 30 - 100 ng/mL 06/05/2023 9:28 PM EDT [facility] Comment: Vitamin D Status ? 25-OH Vitamin D: Deficiency: ?<20 ng/mL Insufficiency: ? 20 - 29 ng/mL Optimal: ? > or = 30 ng/mL For 25-OH Vitamin D testing on patients on D2-supplementation and patients for whom quantitation of D2 and D3 fractions is required, the QuestAssureD(TM) 25-OH VIT D, (D2,D3), LC/MS/MS is recommended: order code 18073 (patients >2yrs). See Note 1 Note 1 For additional information, please refer to http://education.[employer]/faq/VAH097 (This link is being provided for informational/ educational purposes only.) Blood Structure of peripheral vein / Unknown 06/05/2023 11:53 AM EDT 06/05/2023 7:56 PM EDT Narrative [facility] - 06/09/2023 5:04 AM EDT FASTING:NO us Anupama Bynum DO LAB BLOOD ORDERABLES Final Resul t [facility] [address] [facility] [address]rd Floor, [place] [address], [facility] [address] [place] [address] * (ABNORMAL) PTH, Intact (without Calcium) (06/05/2023 11:53 AM EDT) Parathyroid Hormone, Intact 205(H) 16 - 77 pg/mL 06/06/2023 1:16 AM EDT [facility] Comment: Interpretive Guide ?Intact PTH ? Calcium [...] ORDERABLES Final Resul t [facility] [address] [facility] [address]rd Floor, [place] [address], [employer] [address] [place] [address] * (ABNORMAL) Renal Function Panel (06/05/2023 11:53 AM EDT) Glucose 89 65 - 139 mg/dL 06/05/2023 10:49 PM EDT [employer] [facility] Comment: ? Non-fasting reference interval BUN 39(H) 7 - 25 mg/dL 06/05/2023 10:49 PM EDT [employer] [facility] Creatinine 2.61(H) 0.50 - 1.03 mg/dL 06/05/2023 10:49 PM EDT [facility] eGFR 21(L) > OR = 60 mL/min/1. 73m2 06/05/2023 10:49 PM EDT [employer] [facility] Bun/Creatinine Ratio 15 6 - 22 (calc) 06/05/2023 10:49 PM EDT [facility] Sodium 137 135 - 146 mmol/L 06/05/2023 10:49 PM EDT [facility] Potassium 4.6 3.5 - 5.3 mmol/L 06/05/2023 10:49 PM [employer]Bina [employer] [facility] Chloride 111(H) 98 - 110 mmol/L 06/05/2023 10:49 PM EDT [facility] Carbon Dioxide 18(L) 20 - 32 mmol/L 06/05/2023 10:49 PM [employer] [facility] Calcium 9.8 8.6 - 10.4 mg/dL 06/05/2023 10:49 PM EDT [facility] [employer] Phosphate 3.5 2.5 - 4.5 mg/dL 06/05/2023 10:49 PM [employer]Bina [employer] [facility] Albumin 4.0 3.6 - 5.1 g/dL 06/05/2023 10:49 PM EDTwenty[employer] [facility] Blood Structure of peripheral vein / Unknown 06/05/2023 11:53 AM EDT 06/05/2023 7:56 PM EDT Narrative [facility] - 06/09/2023 5:04 AM EDT FASTING:NO us Anupama Bynum DO LAB BLOOD ORDERABLES Final Resul t [facility] [address] [facility] 3rd [address], [place] [address], [place] [phone] [facility] [address] [place] [address] from Last 3 Months or Most Recently Relevant to Health Maintenance Insurance * Guarantor: Aneta Gan Account Type Relation to Patient Date of Phone Billing Address Personal/Family Self 1965 [phone] (Work) [address] [place], [place] [phone] [facility] [id number] [place] [address] * Guarantor: Aneta Gan Account Type Relation to Patient Date of Phone Billing Address Transplant Self 1965 [phone] (Work) [address] [place] [phone] [facility] [place] [address] Care Teams It Support Specialist Relationship Specialty Start Date End Date Franklin Sanchez PA [address] [place] [id number] PCP - General 06/05/23
--- OUTSIDE RECORDS SUMMARY | 2024-12-23 16:17 | XMS_ITS | Clinical Summary ---
Author Organization [facility] Address [address] [place] [address] Care Team Providers Care Float Remover Name Role Phone Franklin Sanchez Primary Care Provider [phone] Allergies Active Allergy Reactions Criticality Noted Date [...] propionate (FLONASE) 50 mcg/actuation nasal spray SMARTSI [place](s) Both Nares Twice Daily 09/08/19 25 Active sodium bicarbonate 650 mg tablet SMARTSI Tablet(s) By Mouth Twice Daily 08/29/19 25 Active predniSONE (DELTASONE) 2.5 mg tablet 11/28/19 25 Active predniSONE (DELTASONE) 10 mg tablet Take 10 mg by mouth once a day. 025 Discontinued Active Problems No known active problems Encounters Date Type Department Care Team Description 12/18/2024 Telephone [facility] Transplant Department [address] [place] [address] Zenobia Zepeda, RN 12/12/2024 Telephone [facility] Transplant Department [address] [place] [address] Linh Patel RN 12/12/2024 Documentation [facility] Transplant Department [address] [place] [address] Delores Sepulveda LICSW 12/11/2024 12:00 PM EDT Lab [facility] Arnold Lab Draw Site [address] [place] [address] Pre-transplant evaluation for end stage renal disease; Chronic kidney disease, stage IV (severe) ([facility]LY [facility]) 12/11/2024 10:15 AM EDT Office Visit [facility] Renal Transplant [address] [place] [address] Franklin Flowers MD Pre-transplant evaluation for kidney transplant (Primary Dx); Pre-transplant evaluation for end stage renal disease; Stage 5 chronic kidney disease not on chronic dialysis ([facility]) 12/11/2024 9:30 AM EDT Social Work [facility] Renal Transplant [address] [place] [address] 39[address] Delores Sepulveda LICSW 12/11/2024 8:30 AM EDT Evaluation [facility] Renal Transplant [address] [place] [address] Zenobia Zepeda, RN Pre-transplant evaluation for kidney transplant (Primary Dx); ESRD (end stage renal disease) ([facility]) 12/11/2024 8:00 AM EDT Office Visit [facility] Renal Transplant [address] [place] [address] Evon Sierra LPN Pre-transplant evaluation for kidney transplant (Primary Dx) 12/08/2024 Telephone [facility] Transplant Department [address] [place] [address] Zenobia Zepeda, PRIYANK 12/04/2024 Orders Only [facility] Transplant Department [address] [place] [address] Zenobia Zepeda, RN Pre-transplant evaluation for end stage renal disease (Primary Dx); Chronic kidney disease, stage IV (severe) (HCC) 10/30/2024 Telephone [facility] Transplant Department [address] [place] [address] Zenobia Zepeda, RN from Last 3 Months Family History [...] Info) Description 12/08/2025 8:20 AM EDT Follow-Up [facility] Renal Transplant [address] [place] [address] Franklin Flowers MD [address] [place] [address] 12/08/2025 9:00 AM EDT Social Work [facility] Renal Transplant [address] [place] [address] Delores Sepulveda, BASIC COMBATANT SWIMMER [address] [place] [address] Health Maintenance Due Date Last Done Comments [...] Screening Completed 12/11/2024 Procedures * Due to [place] state law, this organization might not be [...] IV (severe) (HCC) QUANTIFERON-TB GOLD PLUS, 1 [id number] Routine 12/11/2024 12:08 PM EDT Pre-transplant evaluation for end stage renal disease Chronic kidney disease, stage IV (severe) (HCC) RPR (DIAGNOSIS) W/REFLEX TO TITER & TPPA [id number] Routine 12/11/2024 12:08 PM EDT Pre-transplant evaluation for end stage renal disease Chronic kidney disease, stage IV (severe) (HCC) VARICELLA ZOSTER ANTIBODY, IGG Routine 12/11/2024 12:08 PM EDT Pre-transplant evaluation for end stage renal disease Chronic kidney disease, stage IV (severe) (HCC) HLA TRANSPLANT WORK-UP (ALLELE LEVEL A/B/C/DRB1/DSX990/DQA 1/DQB1/DPA1/DPB1) Routine 12/11/2024 12:08 PM EDT Pre-transplant [...] to Health Maintenance Results * Due to [place] state law, this organization might not be sharing negative HIV tests. * HLA Transplan Work-Up(Allele Level A/B/C/DRB1/YWN815/DQA1/DQB1/DPA1/DPB1) (12/11/2024 12:08 PM EDT) [facility] Hist[facility]ibility Laboratory Information See Below 12/16/2024 4:30 PM EDT [facility] Comment: SUNI: ??[id number] ?Director: ??Hussein Olivo MD. [facility] PFI: ??[id number] UNOS: ??[id number] This test was [...] testing. C*-1 C*04:01 12/16/2024 4:30 PM EDT [facility] C*-2 DATA NOT REPORTED 12/16/2024 4:30 PM EDT [facility] C*-1 NMDP DATA NOT [...] 12:08 PM EDT 12/11/2024 12:22 PM EDT us Franklin Flowers MD HLA LAB ORDERABLES Edited Result - Final [facility] [address] [facility] Rm: [id number] [place] [address], * MMR Panel, IgG (12/11/2024 12:08 PM EDT) [facility] Measles Antibody (IgG), Immune Status >300.00 AU/mL 12/11/2024 9:31 PM EDT [facility] Comment: AU/mL ?Interpretation ----- ? <13.50 ? Not consistent with immunity 13.50-16.49 ?Equivocal >16.49 ? Consistent with immunity The presence of measles IgG suggests immunization or past or current infection with measles virus. For additional information, please refer to http://KTK Group.Enable Injections/faq/HMK784 (This link is being provided for informational/ educational purposes only.) Mumps Antibody (IgG), Immune Status 114.00 AU/mL 12/11/2024 9:31 PM EDT [facility] Comment: AU/mL ? Interpretation ------- ? <9.00 ? Not consistent with immunity 9.00-10.99 ?Equivocal >10.99 ?Consistent with immunity The presence of mumps IgG antibody suggests immunization or past or current infection with mumps virus. Rubella Antibody (IgG), Immune Status 20.40 Index 12/11/2024 9:31 PM EDT [facility] Comment: ?Index ?Interpretation ?----- ?<0.90 ?Not consistent with immunity ?0.90-0.99 ?Equivocal ?> or = 1.00 ?Consistent with immunity The presence of rubella IgG antibody suggests immunization or past or current infection with rubella virus. Blood Structure of peripheral vein / Unknown Venipuncture / Unknown 12/11/2024 12:08 PM EDT 12/11/2024 12:23 PM EDT Narrative LULA [place] - 12/11/2024 9:31 PM EDT [facility] Received Date: Franklin Flowers MD LAB BLOOD ORDERABLES [place] Result LULA [place] [address] [facility] 3rd Floor, [place] [address], [facility] [address] [facility] 3rd Floor, [place] [address], * (ABNORMAL) Herpes Simplex Virus 1&2, IgG (12/11/2024 12:08 PM EDT) HSV 1 IgG Type Specific Ab 44.60(H) index 12/12/2024 4:21 AM EDT [facility] HSV 2 IgG Type Specific Ab 14.90(H) index 12/12/2024 4:21 AM EDT [facility] Comment: ?Index ?Interpretation ?----- ?<0.90 [...] screening. For additional information, please refer to http://education.Enable Injections/faq/HCX577 (This link is being provided for informational/ educational purposes only.) ?? Blood Structure of peripheral vein / Unknown Venipuncture / Unknown 12/11/2024 12:08 PM EDT 12/11/2024 12:24 PM EDT Narrative LULA [place] - 12/12/2024 4:21 AM EDT [facility] Received Date: us Franklin Flowers MD LAB BLOOD ORDERABLES [place] l Result Performing Organization Address [facility] de Phone Number [facility] [address], [place] [address], [facility] [address], [place] [address], [place] [phone] * RPR (Diagnosis) w/Reflex to Titer & TPPA Confirm (12/11/2024 12:08 PM EDT) RPR W/Refl Titer NON-REACT MARSHALL NON-REACT MARSHALL 12/12/2024 11:54 AM EDT [facility] Blood Structure of peripheral vein / Unknown Venipuncture / Unknown 12/11/2024 12:08 PM EDT 12/11/2024 12:24 PM EDT Narrative [facility] - 12/12/2024 11:54 AM EDT [facility] Received Date: us Franklin Flowers MD LAB BLOOD ORDERABLES [place] l Result Performing Organization Address [facility]/State/[facility] Co de Phone Number LULA NAVA [address] [facility] 3rd Floor, [place] [address], [facility] [address], [address] [place] [address], * QuantiFERON-TB Gold Plus, 1 Tube (12/11/2024 12:08 PM EDT) [facility] Signature QuantiFERON-TB Gold Plus NEGATIVE NEGATIVE 12/14/2024 2:16 AM EDT [facility] Comment: Negative test result. M. tuberculosis complex infection unlikely. NIL 0.03 IU/mL 12/14/2024 2:16 AM EDT [facility] Mitogen-NIL 9.50 IU/mL 12/14/2024 2:16 AM EDT [facility] TB1-NIL 0.02 IU/mL 12/14/2024 2:16 AM EDT [facility] TB2-NIL 0.01 IU/mL 12/14/2024 2:16 AM EDT [facility] Comment: The Nil tube value [...] T-lymphocytes. For additional information, please refer to https://education.CareParent.CloudSafe/faq/VZG032 (This link is being provided for informational/ educational purposes only.) Blood Structure of peripheral vein / Unknown Venipuncture / Unknown 12/11/2024 12:08 PM EDT 12/11/2024 12:22 PM EDT Narrative [facility] [place] - 12/14/2024 2:16 AM EDT [facility] Received Date: Franklin Flowers MD LAB BLOOD ORDERABLES [place] Result LULA [place] [address] [facility] [address]rd Floor, [place] [address], [place] [phone] [facility] [address], [place] [address], [place] [phone] * (ABNORMAL) CBC Auto Differential (12/11/2024 12:08 PM EDT) Pathologist [facility] WBC 6.6 3.8 - 10.8 10*3/uL 12/11/2024 12:32 PM EDT [facility] RBC 3.52(L) 3.80 - 5.10 10*6/uL 12/11/2024 12:32 PM EDT [facility] Hemoglobin 10.4(L) 11.7 - 15.5 g/dL 12/11/2024 12:32 PM EDT [facility] Hematocrit 33.1(L) 35.0 - 45.0 % 12/11/2024 12:32 PM EDT [facility] MCV 94.0 80.0 - 100.0 fL 12/11/2024 12:32 PM EDT [facility] MCH 29.5 27.0 - 33.0 pg 12/11/2024 12:32 PM EDT [facility] MCHC 31.4(L) 32.0 - 36.0 g/dL 12/11/2024 12:32 PM EDT [facility] RDW 13.3 11.0 - 15.0 % 12/11/2024 12:32 PM EDT [facility] Platelets 289 140 - 400 10*3/uL 12/11/2024 12:32 PM EDT [facility] MPV 10.4 7.5 - 12.5 fL 12/11/2024 12:32 PM EDT [facility] Neutrophil % 58.9 % 12/11/2024 12:32 PM EDT [facility] Immature Grans % 0.5 0.0 - 0.9 % 12/11/2024 12:32 PM EDT [facility] Lymphocyte % 30.5 % 12/11/2024 12:32 PM EDT [facility] Monocyte % 5.8 % 12/11/2024 12:32 PM EDT [facility] Eosinophil % 3.8 % 12/11/2024 12:32 PM EDT [facility] Basophil % 0.5 % 12/11/2024 12:32 PM EDT [facility] Neutrophil # 3.86 1.50 - 7.80 10*3/uL 12/11/2024 12:32 PM EDT [facility] Immature Grans # 0.03 <=0.03 10*3/uL 12/11/2024 12:32 PM EDT [facility] Lymphocyte # 2.00 0.85 - 3.90 10*3/uL 12/11/2024 12:32 PM EDT [facility] Monocyte # 0.40 0.20 - 0.95 10*3/uL 12/11/2024 12:32 PM EDT [facility] Eosinophil # 0.30 0.02 - 0.50 10*3/uL 12/11/2024 12:32 PM EDT [facility] Basophil # <0.03 0.00 - 0.20 10*3/uL 12/11/2024 12:32 PM EDT [facility] nRBC % 0.0 /100 WBCs 12/11/2024 12:32 PM EDT [facility] nRBC # <0.01 <0.01 10*3/uL 12/11/2024 12:32 PM EDT [facility] Blood Structure of peripheral vein / Unknown Venipuncture / Unknown 12/11/2024 12:08 PM EDT 12/11/2024 12:24 PM EDT us Franklin Flowers MD LAB BLOOD ORDERABLES [place] Result [facility] [address] [place] [address], * (ABNORMAL) Timo-Lee Virus VCA Antibody Panel (12/11/2024 12:08 PM EDT) EBV Viral Capsid Ag Ab (IGM) <36.00 U/mL 12/12/2024 4:20 AM [facility] Comment: ?U/mL ?Interpretation ?---- ?<36.00 ?Negative ?36.00-43.99 ? Equivocal ?>43.99 ?Positive EBV Viral Capsid Ag Ab (IGG) 386.00(H) U/mL 12/12/2024 4:20 AM [facility] Comment: ? U/mL ? Interpretation ? ---- ? <18.00 ? Negative ? 18.00-21.99 ?Equivocal ? >21.99 ? Positive EBV Nuclear Ag Ab >600.00(H) U/mL 025 4:20 AM [facility] Comment: ? U/mL ? Interpretation ? ---- ? <18.00 ? Negative ? 18.00-21.99 ?Equivocal ? >21.99 ? Positive Interpretation: See Comments 12/12/2024 4:20 AM EDT [facility] Comment: Suggestive of a past Timo-Lee virus infection. In infants, a similar pattern may occur as a result of passive maternal transfer of antibody. Blood Structure of peripheral vein / Unknown Venipuncture / Unknown 12/11/2024 12:08 PM EDT 12/11/2024 12:23 PM EDT Narrative [facility] - 12/12/2024 4:20 AM EDT [facility] Received Date: Franklin Flowers MD LAB BLOOD ORDERABLES [place] Result LULA L[place]ON [address], [place] [address], [facility] [address], [place] [address], * Hepatitis C Antibody w/Reflex to PCR (12/11/2024 12:08 PM EDT) Hepatitis C Antibody NON-REACT MARSHALL NON-REACT MARSHALL 12/12/2024 6:33 AM EDT [facility] Comment: HCV antibody was non-reactive. There is no laboratory evidence of HCV infection. In most cases, no further action is required. However, if recent HCV exposure is suspected, a test for HCV RNA (test code 72427) is suggested. For additional information please refer to http://education.etouches/faq/YXO54a8 (This link is being provided for informational/ educational purposes only.) Blood Structure of peripheral vein / Unknown Venipuncture / Unknown 12/11/2024 12:08 PM EDT 12/11/2024 12:23 PM EDT [facility] - 12/12/2024 6:33 AM EDT [facility] Received Date: Franklin Flowers MD LAB BLOOD ORDERABLES [place] l Result Performing Organization Address City/[facility]/ZIP Co de Phone Number LULA [place] [address] [facility] [address] [facility], [place] [address], [place] [phone] [facility] [address], [place] [address], [place] [phone] * (ABNORMAL) Hepatitis A Antibody, Total (12/11/2024 12:08 PM EDT) Hepatitis A Ab, Total REACTIVE( A) NON-REACT MARSHALL 12/12/2024 5:23 AM EDT [facility] Comment: For additional information, please refer to http://education.CareParent.CloudSafe/faq/LZL320 (This link is being provided for informational/ educational purposes only.) Blood Structure of peripheral vein / Unknown Venipuncture / Unknown 12/11/2024 12:08 PM EDT 12/11/2024 12:23 PM EDT Narrative [facility] - 12/12/2024 5:23 AM EDT [facility] Received Date: Franklin Flowers MD LAB BLOOD ORDERABLES [place] l Result Performing Organization Address City/[facility]/ZIP Co de Phone Number LULA [place] [address] [facility] [address]rd Floor, [place] [address], [place] [phone] [facility] [address] [facility] [address]rd Floor, [place] [address], [place] [phone] * Hepatitis B Core Antibody, Total (12/11/2024 12:08 PM EDT) [facility] Hepatitis B Core Ab Total NON-REACT MARSHALL NON-REACT MARSHALL 12/11/2024 9:08 PM EDT [facility] Comment: For additional information, please refer to http://education.etouches/faq/KMO813 (This link is being provided for informational/ educational purposes only.) Blood Structure of peripheral vein / Unknown Venipuncture / Unknown 12/11/2024 12:08 PM EDT 12/11/2024 12:24 PM EDT Narrative [facility] - 12/11/2024 9:08 PM EDT [facility] Received Date: us Franklin Flowers MD LAB BLOOD ORDERABLES [place] l Result [facility] [address] [facility] [address] Floor, [place] [address], [place] [phone] [facility] [address] [facility] [address]rd Floor, [place] [address], [place] [phone] * ABO/Rh Blood Type (12/11/2024 12:08 PM EDT) [facility] ABO Blood Type AB 12/11/2024 1:50 PM EDT [facility] RH Type Positive 12/11/2024 1:50 PM EDT [facility] Blood Structure of peripheral vein / Unknown Venipuncture / Unknown 12/11/2024 12:08 PM EDT 12/11/2024 1:04 PM EDT us Franklin Flowers MD LAB BLOOD BANK TEST ORDER HENRY Final Result [facility] [address] [place] [address], [place] [phone] * (ABNORMAL) Hepatitis B Surface Antibody (12/11/2024 12:08 PM EDT) [facility] Hepatitis B Surface Ab Immunity, Qn <5(L) > OR = 10 mIU/mL 12/12/2024 4:47 AM EDT [facility] Comment: PATIENT DOES NOT HAVE IMMUNITY TO HEPATITIS B VIRUS. For additional information, please refer to http://KTK Group.etouches/faq/EDR588 (This link is being provided for informational/ educational purposes only). Blood Structure of peripheral vein / Unknown Venipuncture / Unknown 12/11/2024 12:08 PM EDT 12/11/2024 12:23 PM EDT Narrative [facility] - 12/12/2024 4:47 AM EDT [facility] Received Date: Franklin Flowers MD LAB BLOOD ORDERABLES [place] l Result Performing Organization Address [facility]/ZIP Co de Phone Number [facility] [address], [place] [address], [facility] [address], [place] [address], [place] [phone] * Hepatitis B Surface Antigen w/Confirmation (12/11/2024 12:08 PM EDT) Hepatitis B Surface Antigen NON-REACT MARSHALL NON-REACT MARSHALL 12/11/2024 9:08 PM EDT [facility] Comment: For additional information, please refer to http://KTK Group.etouches/faq/KPI666 (This link is being provided for informational/ educational purposes only.) Blood Structure of peripheral vein / Unknown Venipuncture / Unknown 12/11/2024 12:08 PM EDT 12/11/2024 12:23 PM EDT Narrative [facility] - 12/11/2024 9:08 PM EDT [facility] Received Date: us Franklin Flowers MD LAB BLOOD ORDERABLES [place] l Result Performing Organization Address City/[facility]/ZIP Co de Phone Number LULA [address], [address] [place] [address], [facility] [address], [address] [place] [address], * (ABNORMAL) Cytomegalovirus Antibody, IgG (12/11/2024 12:08 PM EDT) Cytomegalovirus Antibody (IgG) >10.00(H ) U/mL 12/11/2024 9:30 PM EDT [facility] Comment: ? U/mL ? Interpretation ? ----- ? <0.60 ? Negative ? 0.60-0.69 ? Equivocal ? > or = 0.70 ?? Positive A positive result indicates that the patient has antibody to CMV. It does not differentiate between an active or past infection. Blood Structure of peripheral vein / Unknown Venipuncture / Unknown 12/11/2024 12:08 PM EDT 12/11/2024 12:23 PM EDT Narrative [facility] [place] - 12/11/2024 9:30 PM EDT [facility] Received Date:[id number] Franklin Flowers MD LAB BLOOD ORDERABLES [place] Result LULA NAVA [address], [place] [address], [facility] [address], [place] [address], [place] [phone] * (ABNORMAL) PTT (12/11/2024 12:08 PM EDT) aPTT 36.4(H) 23.0 - 32.0 Seconds 12/11/2024 12:48 PM EDT [facility] Comment: Current PTT reagent is not sensitive to detect all Lupus Anticoagulant (LA) Inhibitor Cases. ?? If a LA is suspected, please order a Lupus Anticoagulation w/ Reflex Test which is performed at [facility] in [place], [place]. Blood Structure of peripheral vein / Unknown Venipuncture / Unknown 12/11/2024 12:08 PM EDT 12/11/2024 12:24 PM EDT Franklin Flowers MD LAB BLOOD ORDERABLES [place] l Result Performing Organization Address [facility] Co de Phone Number [facility] [address] [place] [address], [place] * (ABNORMAL) Protime-INR (12/11/2024 12:08 PM EDT) PT 23.5(H) 9.6 - 12.4 Seconds 12/11/2024 12:48 PM EDT [facility] INR 2.3 0.9 - 1.1 12/11/2024 12:48 PM EDT [facility]icero NetworksKS [facility] Comment:The optimal therapeu tic INR range for patients treated with Vitamin K antagonists (VKAS, e.g., Warfarin) is 2.0 to 3.5. Discuss the desired range with your doctor/care team. Blood Structure of peripheral vein / Unknown Venipuncture / Unknown 12/11/2024 12:08 PM EDT 12/11/2024 12:24 PM EDT Franklin Flowers MD LAB BLOOD ORDERABLES [place] l Result Performing Organization Address [facility]/ZIP Co de Phone Number [facility] [address] [place] [address], * Varicella Zoster Antibody, IgG (12/11/2024 12:08 PM EDT) Varicella Zoster Virus Antibody 32.50 S/CO 12/12/2024 4:28 AM EDT [facility] Comment: ?Signal to Cut-off ? S/CO ?Interpretation [...] EDT 12/11/2024 12:24 PM EDT Narrative [facility] - 12/12/2024 4:28 AM EDT [facility] Received Date:[id number] us Franklin Flowers MD LAB BLOOD ORDERABLES [place] Result LULA [address], [place] [address], [place] [phone] [facility] [address], [place] [address], [place] [phone] * (ABNORMAL) BUN (12/11/2024 12:08 PM EDT) BUN 41(H) 7 - 23 mg/dL 12/11/2024 12:59 PM EDT [facility] Blood Structure of peripheral vein / Unknown Venipuncture / Unknown 12/11/2024 12:08 PM EDT 12/11/2024 12:26 PM EDT Franklin Flowers MD LAB BLOOD ORDERABLES [place] l Result Performing Organization Address City/[facility]/ZIP Co de Phone Number [facility] [address] [place] [address], [place] * ALT (12/11/2024 12:08 PM EDT) ALT 20 10 - 40 U/L 12/11/2024 12:59 PM EDT [facility] Blood Structure of peripheral vein / Unknown Venipuncture / Unknown 12/11/2024 12:08 PM EDT 12/11/2024 12:26 PM EDT Franklin Flowers MD LAB BLOOD ORDERABLES [place] l Result [facility] [address] [place] [address], [place] * AST (12/11/2024 12:08 PM EDT) AST 30 10 - 40 U/L 12/11/2024 12:59 PM EDT [facility] Blood Structure of peripheral vein / Unknown Venipuncture / Unknown 12/11/2024 12:08 PM EDT 12/11/2024 12:26 PM EDT Franklin Flowers MD LAB BLOOD ORDERABLES [place] l Result Performing Organization Address City/[facility]/ZIP Co de Phone Number [facility] [address] [place] [address], * Phosphorus (12/11/2024 12:08 PM EDT) Phosphorus 3.4 2.5 - 4.5 mg/dL 12/11/2024 12:59 PM EDT [facility] PATH[facility] Blood Structure of peripheral vein / Unknown Venipuncture / Unknown 12/11/2024 12:08 PM EDT 12/11/2024 12:26 PM EDT Franklin Flowers MD LAB BLOOD ORDERABLES [place] l Result Performing Organization Address [facility] de Phone Number [facility] PATHOLOG[facility] LAB[facility]ORY [address] [place] [address], * (ABNORMAL) Creatinine (12/11/2024 12:08 PM EDT) Creatinine 3.06(H) 0.50 - 1.20 mg/dL 12/11/2024 12:59 PM EDT [facility] eGFR 17(L) >=60 mL/min/1 .73m2 12/11/2024 12:59 PM EDT [facility] Comment:The estimated glomer ular [...] MD LAB BLOOD ORDERABLES [place] l Result [facility] CLINICAL PATHOLOGY LABORATORY [address] [place] [address], [place] * (ABNORMAL) Calcium (12/11/2024 12:08 PM EDT) Calcium 10.7(H) 8.6 - 10.5 mg/dL 12/11/2024 12:59 PM EDT [employer] [facility] CLINICAL PATHOLOGY LABORATORY Blood Structure of peripheral vein / Unknown Venipuncture / Unknown 12/11/2024 12:08 PM EDT 12/11/2024 12:26 PM EDT Franklin Flowers MD LAB BLOOD ORDERABLES [place] Result Performing Organization Address [facility]/ZIP Co de Phone Number [employer] CLINICAL PATHOLOGY LABORATORY [address] [place] [address], [place] * Bilirubin, Direct (12/11/2024 12:08 PM EDT) Bilirubin, Direct 0.2 <=0.4 mg/dL 12/11/2024 12:59 PM EDT [employer] CLINICAL PATHOLOGY LABORATORY Blood Structure of peripheral vein / Unknown Venipuncture / Unknown 12/11/2024 12:08 PM EDT 12/11/2024 12:26 PM EDT Franklin Flowers MD LAB BLOOD ORDERABLES [place] Result Performing Organization Address City/[facility]/ZIP Co de Phone Number [employer] CLINICAL PATHOLOGY LABORATORY [address] [place] [phone], [place] * Bilirubin, Total (12/11/2024 12:08 PM EDT) Bilirubin, Total 0.5 0.2 - 1.2 mg/dL 12/11/2024 12:59 PM EDT [facility] Blood Structure of peripheral vein / Unknown Venipuncture / Unknown 12/11/2024 12:08 PM EDT 12/11/2024 12:26 PM EDT Franklin Flowers MD LAB BLOOD ORDERABLES [place] Result Performing Organization Address City/[facility] Co de Phone Number [facility] CLINICAL PATHOLOGY LABORATORY [address] [place] [address], * Albumin (12/11/2024 12:08 PM EDT) Pathologist [facility] Albumin 4.2 3.5 - 5.2 g/dL 12/11/2024 12:59 PM EDT [facility] CLINICAL PATHOLOGY LABORATORY Blood Structure of peripheral vein / Unknown Venipuncture / Unknown 12/11/2024 12:08 PM EDT 12/11/2024 12:26 PM EDT Franklin Flowers MD LAB BLOOD ORDERABLES [place] Result Performing Organization Address [facility] de Phone Number [facility] [address] [place] [address], * (ABNORMAL) Microalbumin, Random Urine with Creatinine (08/07/2023 9:01 AM EST) Creatinine, Random Urine 92 20 - 275 mg/dL 08/08/2023 6:45 PM [employer] Microalbumin 150.8 mg/dL 08/08/2023 6:45 PM EST [facility] Comment: Verified by repeat analysis. Reference Range Not established Microalbumin/Crea tinine Ratio, Random Urine 1,639(H) <30 mcg/mg creat 08/08/2023 6:45 PM EST [employer] Comment: The ADA defines abnormalities in albumin [...] DO LAB URINE ORDERABLES Final Resul t [facility] [address], [place] [address], [employer] [facility] [address] [place] [address] * (ABNORMAL) Vitamin D, 25-Hydroxy, Total, Immunoassay (06/05/2023 11:53 AM EDT) Calcidiol+ercalc idiol 22(L) 30 - 100 ng/mL 06/05/2023 9:28 PM EDT [facility] Comment: Vitamin D Status ? 25-OH Vitamin D: Deficiency: ?<20 ng/mL Insufficiency: ? 20 - 29 ng/mL Optimal: ? > or = 30 ng/mL For 25-OH Vitamin D testing on patients on D2-supplementation and patients for whom quantitation of D2 and D3 fractions is required, the [facility]() 25-OH VIT D, (D2,D3), LC/MS/MS is recommended: order code 47530 (patients >2yrs). See Note 1 Note 1 For additional information, please refer to http://education.Enable Injections/faq/DNE775 (This link is being provided for informational/ educational purposes only.) Blood Structure of peripheral vein / Unknown 06/05/2023 11:53 AM EDT 06/05/2023 7:56 PM EDT Narrative [facility] - 06/09/2023 5:04 AM EDT FASTING:NO Anupama Bynum DO LAB BLOOD ORDERABLES Final Resul t Performing Organization Address City/[facility]/ZIP Co de Phone Number [facility] [address], [place] [address], [place] [phone] [facility] [address] [place] [address] * (ABNORMAL) PTH, Intact (without Calcium) (06/05/2023 11:53 AM EDT) Parathyroid Hormone, Intact 205(H) 16 - 77 pg/mL 06/06/2023 1:16 AM EDT [employer] Comment: Interpretive Guide ?Intact PTH ? Calcium [...] ORDERABLES Final Resul t Performing Organization Address City/[facility]/ZIP Co de Phone Number [facility] [address], [place] [address], [facility] [facility] [address] [place] [address] * (ABNORMAL) Renal Function Panel (06/05/2023 11:53 AM EDT) Glucose 89 65 - 139 mg/dL 06/05/2023 10:49 PM EDT [facility] Comment: ? Non-fasting reference interval BUN 39(H) 7 - 25 mg/dL 06/05/2023 10:49 PM EDT [facility] Creatinine 2.61(H) 0.50 - 1.03 mg/dL 06/05/2023 10:49 PM EDT [facility] eGFR 21(L) > OR = 60 mL/min/1. 73m2 06/05/2023 10:49 PM EDT [facility] Bun/Creatinine Ratio 15 6 - 22 (calc) 06/05/2023 10:49 PM EDT [facility] Sodium 137 135 - 146 mmol/L 06/05/2023 10:49 PM EDT [facility] Potassium 4.6 3.5 - 5.3 mmol/L 06/05/2023 10:49 PM [facility] Chloride 111(H) 98 - 110 mmol/L 06/05/2023 10:49 PM [facility] Carbon Dioxide 18(L) 20 - 32 mmol/L 06/05/2023 10:49 PM [facility] Calcium 9.8 8.6 - 10.4 mg/dL 06/05/2023 10:49 PM [facility] Phosphate 3.5 2.5 - 4.5 mg/dL 06/05/2023 10:49 PM [facility] Albumin 4.0 3.6 - 5.1 g/dL 06/05/2023 10:49 PM [employer] [facility] Blood Structure of peripheral vein / Unknown 06/05/2023 11:53 AM EDT 06/05/2023 7:56 PM EDT Narrative [facility] - 06/09/2023 5:04 AM EDT FASTING:NO us Anupama Bynum DO LAB BLOOD ORDERABLES Final Resul t [facility] [address], [place] [address], [facility] [address] [place] [address] from Last 3 Months or Most Recently Relevant to Health Maintenance Insurance * Guarantor: Aneta Gan Account Type Relation to Patient Date of Phone Billing Address Personal/Family Self 1965 [phone] (Work) [address] [place] [address] [facility] * Guarantor: Aneta Gan Account Type Relation to Patient Date of Phone Billing Address Transplant Self 1965 [phone] (Work) [address] [place] [address] [facility] Care Teams Float Remover Relationship Specialty Start Date End Date Franklin Sanchez PA [address] [place] [address] [id number] PCP - General 06/05/23
--- OUTSIDE RECORDS SUMMARY | 2024-12-23 16:18 | XMS_ITS | Encounter Summary ---
Author Organization [facility] Address [address] [place] [address] Phone Care Team Providers Care Development Consultant Name Role Phone Unavailable Primary Care Provider Unavailabl e Encounter Details Date Type Department Care Team (Late st Contact Info) Description 08/10/2022 Telephone [facility] [address] [place] [address] Roe Morrissey MD Social History [...] Iris Gee - 08/10/2022 10:19 AM EST [facility] insurance verification called, pt will need a PA for her truxima infusion that is scheduled for tomorrow. This will need to go through [facility]. documented in this encounter Plan of [...] EDT) Calcium 9.1 8.4 - 10.2 mg/dL [facility] 11/06/2022 4:20 PM EDT 11/06/2022 4:20 PM EDT Roe Morrissey MD LAB BLOOD ORDERABLES Final Res ult Performing Organization Address [facility] Co de Phone Number [facility] * (ABNORMAL) Creatinine (11/06/2022 4:20 PM EDT) Creatinine Serum 2.59(H) 0.5 - 1.4 mg/dL [facility] eGFR (Calc) 19 ESEQUIEL Comment: NOTE: ??For -Honduran individuals, multiply the result ? by 1.210. Chronic Kidney Disease: ??Estimated GFR < 60 mL/min/1.73m2 Severe Kidney Disease: ??Estimated GFR < 15 mL/min/1.73m2 11/06/2022 4:20 PM EDT 11/06/2022 4:20 PM EDT Roe Morrissey MD LAB BLOOD ORDERABLES Final Res ult Performing Organization Address [facility] Co de Phone Number [facility] * (ABNORMAL) BUN (11/06/2022 4:20 PM EDT) BUN 44(H) 9 - 16 mg/dL [facility] 11/06/2022 4:20 PM EDT 11/06/2022 4:20 PM EDT Roe Morrissey MD LAB BLOOD ORDERABLES Final Res ult Performing Organization Address [facility] Co de Phone Number [facility] * (ABNORMAL) [...]
--- OUTSIDE RECORDS SUMMARY | 2024-12-23 16:18 | XMS_ITS | Clinical Summary ---
Author Organization [facility] Address [address] [place] [address] Phone Care Team Providers Care Fish Hatchery Man Name Role Phone Unavailable Primary Care Provider [...] 03/02/2016 Active ergocalciferol (VITAMIN D-2) 1.25 MG (60175 UT) capsule Take 1 capsule by mouth [...] (Season Ended) 2025 Insurance [facility] [place] [facility] [place]
--- OUTSIDE RECORDS SUMMARY | 2024-12-23 16:18 | XMS_ITS ---
Author Organization [facility] Address [address] [place] [address] Care Team Providers Care Rn Ent Name Role Phone Franklin Sanchez Primary Care Provider [phone] Transplant Episode Kidney Candidate [facility] ([place], [place]) - COUNT INCLUDES [facility] Evaluation began on 12/11/2024 Marked as Active on 12/11/2024 Kidney CoordinatorZenobia Zepeda RN Email: N/A Scores Score Value Updated Exceptions/Reas ons CPRA Not available EPTS (Calc) 27 12/23/2024 Care Team Name Role Phone Fax Email Zenobia Zepeda RN Kidney Coordinator [phone] N/A Roe Morrissey Referring Physician [phone] N/A Events Pre-Transplant Referred: 10/23/2024 Evaluation began: 12/11/2024 Appointments (11/23/2024 - 01/23/2025) When With Visit Type Description 12/11/2024 Transplant [...]
--- OUTSIDE RECORDS SUMMARY | 2024-12-23 16:18 | XMS_ITS | Clinical Summary ---
Author Organization [facility] Address [address] [place] [address] Care Team Providers Care Valve Inserter Name Role Phone Franklin Sanchez Primary Care [...] Influenza Vaccine 03/06/2025 [place] [address] [facility] Care Teams Valve Inserter Relationship Specialty Start Date End Date Franklin Sanchez PA [facility] [place] [address] PCP - General Adult Health - PA/APNP/ENERGY SPECIALIST/UI SOFTWARE ENGINEER 07/20/21
--- OUTSIDE RECORDS SUMMARY | 2024-12-23 16:18 | XMS_ITS | Encounter Summary ---
Author Organization [facility] Address [address] [place] [address] Care Team Providers Care Ventilation Worker Name Role Phone Franklin Sanchez Primary Care Provider [phone] Encounter Details Date Type Department Care Team (Late st Contact Info) Description 12/18/2024 Telephone [facility] Transplant Department [address] [place] [address] Zenobia Zepeda RN [address] [place] [address] Social History Tobacco Use Types Packs/Day Years [...] encounter Miscellaneous Notes * Telephone Encounter - Joseph Pleitez - 12/18/2024 9:56 AM EDT Patient is scheduled for January 12 at 8:00 AM on the first floor of the main building. For her ECHO. The CT is still pending protocol. [facility] will follow up to get the patient scheduled. I also called the patient and left a voicemail informing her about her appointment at [facility]. I provided the phone number [phone] in case the date or time doesn't work for her so she can reschedule if needed. documented in this encounter Plan of Treatment Upcoming Encounters Date Type Department Care Team (Late st Contact Info) Description 12/08/2025 8:20 AM EDT Follow-Up [facility] Renal Transplant [address] [place] [address] Franklin Flowers MD [address] [place] [address] 12/08/2025 9:00 AM EDT Social Work [facility] Renal Transplant [address] [place] [address] Delores Sepulveda LICSW [address] [place] [address] documented as of this encounter Visit Diagnoses Not on filedocumented in this encounter Care Teams Ventilation Worker Relationship Specialty Start Date End Date Franklin Sanchez PA [address] [place] [address] PCP - General 06/05/23 documented as of this encounter
== END 2024-12-23 15:27 | disposition home or self-care (01) ==
LOC: HO.ACS 15:12
PROVIDERS: PCP Physician Assistant; Visit Provider Internal Medicine Medical Oncology
DX: Z79.01 Long term (current) use of anticoagulants (principal)

== ENCOUNTER → 2024-12-23 15:12 | Outpatient (BNVA) | payer OTHER, MEDICAID, SELFPAY | PROVIDERS: PCP Physician Assistant; Visit Provider Internal Medicine Medical Oncology | DX: I26.99 Other pulmonary embolism without acute cor pulmonale (principal); Z51.81 Encounter for therapeutic drug level monitoring; Z79.01 Long term (current) use of anticoagulants | CPT/HCPCS: 85610; 99211 ==

== ENCOUNTER → 2025-01-12 07:51 | Outpatient (REF) | payer OTHER, MEDICAID, SELFPAY ==
--- NOTE | ~2025-01-12 | CT_ITS ---
EXAMINATION: CT ABDOMEN PELVIS WITHOUT IV CONTRAST HISTORY: ESRD COMPARISON: Correlation is made with biopsy images dated 04/25/2022. TECHNIQUE: CT scan of the abdomen and pelvis was performed without contrast using standard departmental protocol. Coronal and sagittal reformatted images were generated and reviewed. Oral contrast material was not administered at the request of the referring physician. This CT exam was performed with one or more of the following dose reduction techniques: automated exposure control, adjustment of the mA and/or kV according to patient size, use of iterative reconstruction technique. DLP: 293 mGy-cm FINDINGS: LOWER CHEST: There is scarring at both lung bases. There is no pleural effusion. CARDIOVASCULATURE: The heart is normal in size. There is no pericardial effusion. LIVER: The liver is normal in size and contour. The liver has an unremarkable unenhanced appearance. GALLBLADDER / BILE DUCTS: The gallbladder is contracted. There is no intra or extrahepatic biliary ductal dilatation. SPLEEN: The spleen is normal in size and has an unremarkable unenhanced appearance. PANCREAS: The pancreas has an unremarkable unenhanced appearance. ADRENAL GLANDS: Unremarkable. KIDNEYS/RETROPERITONEUM: No renal calculi are identified. There is no hydronephrosis. There is infiltration of the left renal sinus fat which may be inflammatory in nature. An 8 mm hypodensity along the anterior cortex of the interpolar region of the left kidney may represent a cyst but cannot be accurately characterize without intravenous contrast material. LYMPH NODES: No retroperitoneal lymphadenopathy is identified in the abdomen or pelvis. VASCULATURE: The abdominal aorta is normal in caliber. MESENTERY/PERITONEUM: No free fluid. No masses. There is no free intraperitoneal gas. STOMACH: There is a large amount of debris in the stomach. SMALL BOWEL: The small bowel is normal in caliber. COLON: The colon is unremarkable. APPENDIX: Normal. URINARY BLADDER/PELVIC ORGANS: The urinary bladder is collapsed, limiting evaluation. The uterus and ovaries have an unremarkable unenhanced appearance. BONES / SOFT TISSUES: No suspicious bony or soft tissue abnormalities. CT/CT abdomen pelvis wo IV con IMPRESSION: Infiltration of the left renal sinus fat which may be inflammatory in nature. There is no evidence of nephrolithiasis or ureteral obstruction. Electronically signed by: Gino Del Toro MD 01/12/2025 03:49 PM EDT RP
--- NOTE | 2025-01-12 07:54 | CA_ITS ---
Transthoracic Echocardiogram Patient (Last, First, Middle): Aneta Mccallum, Gender: Female Date of : 1965 Age: 59 Procedure Date: 01/12/2025 Procedure Type: Transthoracic Echocardiogram Location: OP Height: 152.4 cm Weight: 63.96 kg BSA: 1.61 m2 Heart Rate: bpm BP: 116 / 70 mmHg Licensed Pesticide Applicator: JODIE Referring MD: Franklin Flowers MD [employer] F[employer] Instructor: Bala Ramirez MD Symptoms: Z01.818 PRE TRANSPLANT EVAL FOR END STAGE RENAL DISEASE Study Quality: Adequate ECG Rhythm: Sinus Conclusions: - 1. Normal LV ejection fraction of 65-70% with grade 1 diastolic dysfunction 2. Normal cardiac valve with a Dopplers 3. Upper limits of normal ascending aortic size 4. No gross bradycardia effusion Findings Left Ventricle Normal left ventricular size, thickness, and systolic function. The visually estimated ejection fraction is between 65-70%. Spectral Doppler is indicative of an impaired relaxation filling pattern. E/E prime ratio is <8, consistent with normal filling pressures. Evidence suggests grade I (mild) diastolic dysfunction. Right Ventricle Normal right ventricular cavity size and systolic function. Atria Both atria are normal in size. There is lipomatous hypertrophy of the interatrial septum. There is no evidence of interatrial shunt. Aortic Valve Normal aortic valve structure and function. There is no aortic valve stenosis. There is no aortic valve regurgitation. Mitral Valve Normal mitral valve structure and function. There is trace mitral valve regurgitation. There is no mitral valve stenosis. Pulmonic Valve The pulmonic valve is likely normal. Tricuspid Valve Likely normal tricuspid valve structure and function. Tricuspid regurgitation envelope is inadequate for calculation of right ventricular systolic pressure. Normal right atrial pressure. Great Vessels The pulmonary artery was not well visualized. There is no dilatation of the ascending aorta measuring 3.50 cm. Venous The inferior vena cava is normal in size and collapses greater than 50% with inspiration. Pericardium/Pleural There is no evidence of pericardial effusion. Measurements 2D Linear Measurements IVSd: 0.95 0.6-0.9/0.6-1.0 cm LVIDd: 4.00 3.9-5.3/4.2-5.9 cm LVIDd Index: 2.48 2.4-3.2/2.2-3.1 cm/m2 LVIDs: 2.13 2.0-3.6 cm LVPWd: 0.87 0.7-1.1 cm LA Diam: 2.70 2.7-3.8/3.0-4.0 cm LAIDs Index: 1.68 1.5-2.3 cm/m2 LV Mass: 138.36 67-162/88-224 g LV Mass Index: 85.94 43-95/49-115 g/m2 LVOT Diam: 2.00 3.0+(-)1.3 cm 2D Systolic Function EF 4C: 68.20 >55% EF 2C: 64.70 >55% EF BiP: 66.50 >55% Mitral Valve MV Pk E: 0.60 MV PK A: 0.94 MV Decel Time: 191.00 E/A: 0.60 E'Lateral: 10.90 E'Medial: 6.85 E/E' Med: 8.80 E/E' Lat: 5.50 PHT: 56.00 MVA PHT: 3.93 Decel Harney: 3.15 Aortic Valve AoV Pk Karel: 1.49 AoV Mn Karel: 1.04 AoV VTI: 0.28 AoV Pk Grad: 9.00 Aov Mn Grad: 5.00 MERARI Cont.VTI: 2.67 LVOT LVOT Pk Karel: 1.22 LVOT Mn Karel: 0.73 LVOT VTI: 0.24 LVOT Pk Grad: 6.00 LVOT Mn Grad: 3.00 LVOT Diam: 2.00 LVOT Area: 3.14 Diastolic Function MV Pk E: 0.60 MV Pk A: 0.94 E/A: 0.60 E'Medial: 6.85 E/E' Med: 8.80 E' Laterial: 10.90 E/E' Lat: 5.50 Right Ventricle TAPSE (mm): 20.30 TVS' Karel: 10.40 Tricuspid Valve RA Press: 3.00 Great Vessels Aorta Sinus of Valsalva: 3.31 2.0-3.[address] Ridge: 2.58 1.7-3.4 cm Ao Asc: 3.50 2.1-3.4 cm Updated in Other Vendor System with Status of Final Bala Ramirez MD electronically signed on 01/13/2025 5:38:17 PM with status of Final
== END ==
LOC: HO.CARD 07:51
PROVIDERS: PCP Physician Assistant; Visit Provider Internal Medicine Nephrology
DX: Z01.818 Encounter for other preprocedural examination (principal); N18.4 Chronic kidney disease, stage 4 (severe)
CPT/HCPCS: 74176; 86900; 86901; 93306

== ENCOUNTER → 2025-01-12 07:54 | Outpatient (BNV) | payer OTHER, MEDICAID, SELFPAY | PROVIDERS: PCP Physician Assistant; Visit Provider Internal Medicine Cardiovascular Disease | DX: I51.89 Other ill-defined heart diseases (principal); Z01.810 Encounter for preprocedural cardiovascular examination; I34.1 Nonrheumatic mitral (valve) prolapse | CPT/HCPCS: 93306 ==

== ENCOUNTER → 2025-01-12 15:09 | Outpatient (BNV) | payer OTHER, MEDICAID, SELFPAY | PROVIDERS: PCP Physician Assistant; Visit Provider Radiology Diagnostic Radiology | DX: N28.89 Other specified disorders of kidney and ureter (principal) | CPT/HCPCS: 74176 ==

== ENCOUNTER 2025-01-13 15:10 | Outpatient (AMB) | payer OTHER, MEDICAID, SELFPAY ==
--- NOTE | 2025-01-13 15:20 | MHC.OFFVISCO ---
Intake Intake Visit Reasons: Anticoagulation Allergies rituximab [From Rituxan] Allergy (Severe, Verified 01/13/25 15:11) Anaphylaxis cephalexin [From Keflex] Allergy (Unknown, Verified 01/13/25 15:11) RED+ITCHY,RASH Cephalosporins [CEPHALOSPORINS] Allergy (Unknown, Verified 01/13/25 15:11) RED+ITCHY Sulfa (Sulfonamide Antibiotics) [SULFA(SULFONAMIDE ANTIBIOTICS)] Allergy (Unknown, Verified 01/13/25 15:11) RED+ITCHY mycophenolate mofetil [From CellCept] Adverse Reaction (Intermediate, Verified 01/13/25 15:11) rash cellcept Allergy (Severe, Uncoded 01/13/25 15:11) Hives retuxin Adverse Reaction (Severe, Uncoded 01/13/25 15:11) Abdominal Pain Medication List - Last Reconciled 01/13/25 by Joann Braden, RN atorvastatin 20 mg PO BEDTIME 30 days calcitriol 0.25 mcg PO DAILY clobetasol 0.05% 1 appl topical DAILY fluocinonide 0.05% appl topical gabapentin 200 mg PO DAILY PRN levothyroxine 100 mcg PO DAILY lisinopril 2.5 mg PO DAILY loratadine 10 mg PO DAILY PRN magnesium oxide 250 mg PO BID prednisone 2.5 mg PO DAILY sodium bicarbonate 650 mg PO BID warfarin 5 mg See Protocol PO DAILY Nursing Note INR: 2.3 in therapeutic range of 2-3 Medications and supplements reviewed No changes in health, diet, medications, or supplements, Denies any signs and symptoms of bleeding or bruising or clotting. Bleeding, bruising, clotting discussed Nutritional guidance given Dose: continue same dose of 2.5mg X 6 days and 5mg X 1 day () F/U INR: 3 weeks Patient verbalizes understanding of instructions given Anti-Coag Initial Assessment Social Hx Patient Tobacco Use Status: Former Tobacco user Tobacco use type: Cigarette alcohol intake: former Alcohol intake frequency: does not drink Coding Level of Care Code Est Patient Level 1 Diagnoses Current use of anticoagulant therapy Z79.01 Results AMB INR Fingerstick AMB INR Fingerstick 2.3 Last Edit by Joann Braden RN on 01/13/25 15:16 interface delay Assessment & Plan Assessment & Plan (1) Current use of anticoagulant therapy: Code(s): Z79.01 - terminal system operator (current) use of anticoagulants Category: Medical
[2025-01-13 15:24] LABS: Prothrombin Time Whole Bld POC 27.7 sec (11.1-13.5); ~PT, ~INR - Anti Coag Clinic 2.3 (0.9-1.1)
--- OUTSIDE RECORDS SUMMARY | 2025-01-13 18:17 | XMS_ITS | Clinical Summary ---
Author Organization [facility] Address [address] [place] [address] Care Team Providers Care [place] Consultant Name Role Phone Franklin Sanchez Primary Care Provider [phone] Allergies Active Allergy Reactions Criticality Noted Date Comments Cephalexin Rash Medium 11/04/2020 Medications calcium carbonate-vitami n D3 500 mg-200 units tablet Take 2 tablets by mouth once a day. Active cholecalciferol (VITAMIN D3) 2,000 unit capsule Take 2 capsules by mouth once a day. 2 Active gabapentin (NEURONTIN) 100 mg capsule Take 2 capsules by mouth once a day. 3 Active levothyroxine (SYNTHROID, LEVOTHROID) 100 mcg tablet Take 100 mcg by mouth daily. 3 Active warfarin (COUMADIN) 5 mg tablet Take 5 mg by mouth. Daily as directed Active lisinopriL (PRINIVIL,ZESTRI L) 2.5 mg tablet Take 1 tablet (2.5 mg total) by mouth once a day. 90 tablet 3 4 Active atorvastatin (LIPITOR) 20 mg tablet 5 Active calcitrioL (ROCALTROL) 0.25 mcg capsule SMARTSI Capsule(s) By Mouth Daily 5 Active fluticasone propionate (FLONASE) 50 mcg/actuation nasal spray SMARTSI Pioneer(s) Both Nares Twice Daily 5 Active sodium bicarbonate 650 mg tablet SMARTSI Tablet(s) By Mouth Twice Daily 5 Active predniSONE (DELTASONE) 2.5 mg tablet 5 Active Active Problems No known active problems Encounters Date Type Department Care Team Description 12/18/2024 Telephone [facility] Trans[facility] Department [address] [place] [address] [phone] Zenobia Zepeda, RN 12/12/2024 Telephone [facility] [address] [place] [address] [phone] Linh Patel RN 12/12/2024 Documentation [facility] [address] [place] [address] [phone] Delores Sepulveda LICSW 12/11/2024 12:00 PM EDT Lab [facility] Draw Site [address] [place] [address] Pre-transplant evaluation for end stage renal disease; Chronic kidney disease, stage IV (severe) ([facility]) 12/11/2024 10:15 AM EDT Office Visit [facility]plant [address] [place] [address] [phone] Franklin Flowers MD Pre-transplant evaluation for kidney transplant (Primary Dx); Pre-transplant evaluation for end stage renal disease; Stage 5 chronic kidney disease not on chronic dialysis (HCC) 12/11/2024 9:30 AM EDT Social Work [facility] [address] [place] [address] [phone] Delores Sepulveda LICSW 12/11/2024 8:30 AM EDT Evaluation [facility] [address] [place] [address] 74357 Zenobia Zepeda, RN Pre-transplant evaluation for kidney transplant (Primary Dx); ESRD (end stage renal disease) ([facility]) 12/11/2024 8:00 AM EDT Office Visit [facility] [address] [place] [address] [phone] Evon Sierra LPN Pre-transplant evaluation for kidney transplant (Primary Dx) 12/08/2024 Telephone [facility] Department [address] [place] [address] Zenobia Zepeda, RN 12/04/2024 Orders Only [facility] Department [address] [place] [address] Zenobia Zepeda, RN Pre-transplant evaluation for end stage renal disease (Primary Dx); Chronic kidney disease, stage IV (severe) (HCC) 10/30/2024 Telephone [facility] Department [address] [place] [address] Zenobia Zepeda, RN from Last 3 Months [...] Info) Description 12/08/2025 8:20 AM EDT Follow-Up [facility] [address] [place] [address] Franklin Flowers MD [address] [place] [address] 12/08/2025 9:00 AM EDT Social Work [facility] [address] [place] [address] Delores Sepulveda, RUG CLE[employer]ER [address] [place] [address] Health Maintenance Due Date Last Done Comments [...] Screening Completed 12/11/2024 Procedures * Due to [place] state law, this organization might not be [...] IV (severe) (HCC) QUANTIFERON-TB GOLD PLUS, 1 [id number] Routine 12/11/2024 12:08 PM EDT Pre-transplant evaluation for end stage renal disease Chronic kidney disease, stage IV (severe) (HCC) RPR (DIAGNOSIS) W/REFLEX TO TITER & TPPA [id number] Routine 12/11/2024 12:08 PM EDT Pre-transplant evaluation for end stage renal disease Chronic kidney disease, stage IV (severe) (HCC) VARICELLA ZOSTER ANTIBODY, IGG Routine 12/11/2024 12:08 PM EDT Pre-transplant evaluation for end stage renal disease Chronic kidney disease, stage IV (severe) (HCC) HLA TRANSPLANT WORK-UP (ALLELE LEVEL A/B/C/DRB1/OJC381/DQA 1/DQB1/DPA1/DPB1) Routine 12/11/2024 12:08 PM EDT Pre-transplant evaluation for end stage renal disease Chronic kidney disease, stage IV (severe) (HCC) HLA ANTIBODY IDENTIFICATION WITH TREATMENT - CLASS I Routine 12/11/2024 12:08 PM EDT Pre-transplant evaluation for end stage renal disease Chronic kidney disease, stage IV (severe) (HCC) HLA ANTIBODY IDENTIFICATION WITH TREATMENT - CLASS II Routine 12/11/2024 12:08 PM EDT Pre-transplant evaluation for end stage renal disease Chronic kidney disease, stage IV (severe) (HCC) ABO/RH BLOOD TYPE Routine 12/11/2024 12:08 PM EDT Pre-transplant evaluation for end stage renal disease Chronic kidney disease, stage IV (severe) ([facility]) MICROALBUMIN, RANDOM URINE WITH CREATININE Routine 08/07/2023 [...] to Health Maintenance Results * Due to [place] state law, this organization might not be sharing negative HIV tests. * HLA Transplan Work-Up(Allele Level A/B/C/DRB1/SOR127/DQA1/DQB1/DPA1/DPB1) (12/11/2024 12:08 PM EDT) [facility] Histocompatibility Laboratory Information See Below 12/16/2024 4:30 PM EDT [facility] Comment: SUNI: ??[id number] ?Director: ??Hussein Olivo MD. [facility] PFI: ??[id number] UNOS: ??[id number] This test [...] testing. C*-1 C*04:01 12/16/2024 4:30 PM EDT [facility] C*-2 DATA NOT REPORTED [...] HLA LAB ORDERABLES Edited Result - Final [facility] [address] [place] [address] Rm: [id number] [place] [address], * MMR Panel, IgG (12/11/2024 12:08 PM EDT) Measles Antibody (IgG), Immune Status >300.00 AU/mL 12/11/2024 9:31 PM EDT [facility] Comment: AU/mL ?Interpretation ----- ? <13.50 ? Not consistent with immunity 13.50-16.49 ?Equivocal >16.49 ? Consistent with immunity The presence of measles IgG suggests immunization or past or current infection with measles virus. For additional information, please refer to http://WhiteCloud Analytics.ClarityAd/faq/BKL250 (This link is being provided for informational/ educational purposes only.) Mumps Antibody (IgG), Immune Status 114.00 AU/mL 12/11/2024 9:31 PM EDT [facility] Comment: AU/mL ? Interpretation ------- ? <9.00 ? Not consistent with immunity 9.00-10.99 ?Equivocal >10.99 ?Consistent with immunity The presence of mumps IgG antibody suggests immunization or past or current infection with mumps virus. Rubella Antibody (IgG), Immune Status 20.40 Index 12/11/2024 9:31 PM EDT [facility] Comment: ?Index ?Interpretation ?----- ?<0.90 ?Not consistent with immunity ?0.90-0.99 ?Equivocal ?> or = 1.00 ?Consistent with immunity The presence of rubella IgG antibody suggests immunization or past or current infection with rubella virus. Blood Structure of peripheral vein / Unknown Venipuncture / Unknown 12/11/2024 12:08 PM EDT 12/11/2024 12:23 PM EDT Narrative [facility] - 12/11/2024 9:31 PM EDT [facility] Received Date:[id number] Franklin Flowers MD LAB BLOOD ORDERABLES [place] Result [facility] [address] [facility] 3rd [address], [place] [address], [facility] [address] [facility] 3rd [address], [place] [address], * (ABNORMAL) Herpes Simplex Virus 1&2, IgG (12/11/2024 12:08 PM EDT) HSV 1 IgG Type Specific Ab 44.60(H) index 12/12/2024 4:21 AM EDT [facility] HSV 2 IgG Type Specific Ab 14.90(H) index 12/12/2024 4:21 AM EDT [facility] Comment: ?Index ?Interpretation ?----- ?<0.90 ?Negative ?0.90-1.09 [...] screening. For additional information, please refer to http://education.ClarityAd/faq/OZF390 (This link is being provided for informational/ educational purposes only.) ?? Blood Structure of peripheral vein / Unknown Venipuncture / Unknown 12/11/2024 12:08 PM EDT 12/11/2024 12:24 PM EDT Narrative [facility] 12/12/2024 4:21 AM EDT [facility] Received Date: Franklin Flowers MD LAB BLOOD ORDERABLES [place] Result [facility] [address], [place] [address], [facility] [address], [place] [address], * RPR (Diagnosis) w/Reflex to Titer & TPPA Confirm (12/11/2024 12:08 PM EDT) RPR W/Refl Titer NON-REACT MARSHALL NON-REACT MARSHALL 12/12/2024 11:54 AM EDT [employer] [facility] Blood Structure of peripheral vein / Unknown Venipuncture / Unknown 12/11/2024 12:08 PM EDT 12/11/2024 12:24 PM EDT Narrative [facility] - 12/12/2024 11:54 AM EDT [facility] Received Date: Franklin Flowers MD LAB BLOOD ORDERABLES [place] Result [facility] [address] [facility] 3rd [address], [place] [address], [facility] [address] [facility] 3rd Floor, [place] [address], * QuantiFERON-TB Gold Plus, 1 Tube (12/11/2024 12:08 PM EDT) [facility] QuantiFERON-TB Gold Plus NEGATIVE NEGATIVE 12/14/2024 2:16 AM EDT [facility] Comment: Negative test result. M. tuberculosis complex infection unlikely. NIL 0.03 IU/mL 12/14/2024 2:16 AM EDT [employer] [facility] Mitogen-NIL 9.50 IU/mL 12/14/2024 2:16 AM EDT [employer] [facility] TB1-NIL 0.02 IU/mL 12/14/2024 2:16 AM EDT [employer] [facility] TB2-NIL 0.01 IU/mL 12/14/2024 2:16 AM EDT [employer] [facility] Comment: The Nil tube value reflects [...] T-lymphocytes. For additional information, please refer to https://education.Skoodat.Advanced Seismic Technologies/faq/PXO781 (This link is being provided for informational/ educational purposes only.) Blood Structure of peripheral vein / Unknown Venipuncture / Unknown 12/11/2024 12:08 PM EDT 12/11/2024 12:22 PM EDT Narrative [facility] - 12/14/2024 2:16 AM EDT [facility] Received Date: Franklin Flowers MD LAB BLOOD ORDERABLES [place] Result [facility] [address] [facility] [address]rd [address], [place] [address], [place] [phone] [employer] [facility] [address] [facility] 3rd Floor, [place] [address], [place] [phone] * (ABNORMAL) CBC Auto Differential (12/11/2024 12:08 PM EDT) WBC 6.6 3.8 - 10.8 10*3/uL 12/11/2024 12:32 PM EDT [facility] RBC 3.52(L) 3.80 - 5.10 10*6/uL 12/11/2024 12:32 PM EDT [facility] Hemoglobin 10.4(L) 11.7 - 15.5 g/dL 12/11/2024 12:32 PM EDT [facility] Hematocrit 33.1(L) 35.0 - 45.0 % 12/11/2024 12:32 PM EDT [facility] MCV 94.0 80.0 - 100.0 fL 12/11/2024 12:32 PM EDT [facility] MCH 29.5 27.0 - 33.0 pg 12/11/2024 12:32 PM EDT [facility] MCHC 31.4(L) 32.0 - 36.0 g/dL 12/11/2024 12:32 PM EDT [facility] RDW 13.3 11.0 - 15.0 % 12/11/2024 12:32 PM EDT [facility] Platelets 289 140 - 400 10*3/uL 12/11/2024 12:32 PM EDT [facility] MPV 10.4 7.5 - 12.5 fL 12/11/2024 12:32 PM EDT [facility] Neutrophil % 58.9 % 12/11/2024 12:32 PM EDT [facility] Immature Grans % 0.5 0.0 - 0.9 % 12/11/2024 12:32 PM EDT [facility] Lymphocyte % 30.5 % 12/11/2024 12:32 PM EDT [facility] Monocyte % 5.8 % 12/11/2024 12:32 PM EDT [facility] Eosinophil % 3.8 % 12/11/2024 12:32 PM EDT [facility] Basophil % 0.5 % 12/11/2024 12:32 PM EDT [facility] Neutrophil # 3.86 1.50 - 7.80 10*3/uL 12/11/2024 12:32 PM EDT [facility] Immature Grans # 0.03 <=0.03 10*3/uL 12/11/2024 12:32 PM EDT [facility] Lymphocyte # 2.00 0.85 - 3.90 10*3/uL 12/11/2024 12:32 PM EDT [facility] Monocyte # 0.40 0.20 - 0.95 10*3/uL 12/11/2024 12:32 PM EDT [facility] Eosinophil # 0.30 0.02 - 0.50 10*3/uL 12/11/2024 12:32 PM EDT [facility] Basophil # <0.03 0.00 - 0.20 10*3/uL 12/11/2024 12:32 PM EDT [facility] nRBC % 0.0 /100 WBCs 12/11/2024 12:32 PM EDT [facility] nRBC # <0.01 <0.01 10*3/uL 12/11/2024 12:32 PM EDT [facility] Blood Structure of peripheral vein / Unknown Venipuncture / Unknown 12/11/2024 12:08 PM EDT 12/11/2024 12:24 PM EDT us Franklin Flowers MD LAB BLOOD ORDERABLES [place] Result [facility] [address] [place] [address], * (ABNORMAL) Timo-Lee Virus VCA Antibody Panel (12/11/2024 12:08 PM EDT) EBV Viral Capsid Ag Ab (IGM) <36.00 U/mL 12/12/2024 4:20 AM EDT [facility] Comment: ?U/mL ?Interpretation ?---- ?<36.00 ?Negative ?36.00-43.99 ? Equivocal ?>43.99 ?Positive EBV Viral Capsid Ag Ab (IGG) 386.00(H) U/mL 12/12/2024 4:20 AM EDT [facility] Comment: ? U/mL ? Interpretation ? ---- ? <18.00 ? Negative ? 18.00-21.99 ?Equivocal ? >21.99 ? Positive EBV Nuclear Ag Ab >600.00(H) U/mL 025 4:20 AM EDT [facility] Comment: ? U/mL ? Interpretation ? ---- ? <18.00 ? Negative ? 18.00-21.99 ?Equivocal ? >21.99 ? Positive Interpretation: See Comments 12/12/2024 4:20 AM EDT [facility] Comment: Suggestive of a past Timo-Lee virus infection. In infants, a similar pattern may occur as a result of passive maternal transfer of antibody. Blood Structure of peripheral vein / Unknown Venipuncture / Unknown 12/11/2024 12:08 PM EDT 12/11/2024 12:23 PM EDT Narrative [facility] - 12/12/2024 4:20 AM EDT [facility] Received Date: Franklin Flowers MD LAB BLOOD ORDERABLES [place] Result [facility] [address] [facility] 3rd [address], [place] [address], [facility] [address] [facility] 3rd [address], [place] [address], * Hepatitis C Antibody w/Reflex to PCR (12/11/2024 12:08 PM EDT) Pathologist [facility] Hepatitis C Antibody NON-REACT MARSHALL NON-REACT MARSHALL 12/12/2024 6:33 AM EDT [facility] Comment: HCV antibody was non-reactive. There is no laboratory evidence of HCV infection. In most cases, no further action is required. However, if recent HCV exposure is suspected, a test for HCV RNA (test code 33487) is suggested. For additional information please refer to http://WhiteCloud Analytics.Nimsoft/faq/LHG18h4 (This link is being provided for informational/ educational purposes only.) Blood Structure of peripheral vein / Unknown Venipuncture / Unknown 12/11/2024 12:08 PM EDT 12/11/2024 12:23 PM EDT Narrative [facility] - 12/12/2024 6:33 AM EDT [facility] Received Date: Franklin Flowers MD LAB BLOOD ORDERABLES [place] l Result Performing Organization Address [facility]/ZIP Co de Phone Number [address], [place] [address], [employer] [address], [place] [address], [place] [phone] * (ABNORMAL) Hepatitis A Antibody, Total (12/11/2024 12:08 PM EDT) Hepatitis A Ab, Total REACTIVE( A) NON-REACT MARSHALL 12/12/2024 5:23 AM EDT [facility] Comment: For additional information, please refer to http://WhiteCloud Analytics.Nimsoft/faq/GLR234 (This link is being provided for informational/ educational purposes only.) Blood Structure of peripheral vein / Unknown Venipuncture / Unknown 12/11/2024 12:08 PM EDT 12/11/2024 12:23 PM EDT Narrative [facility] - 12/12/2024 5:23 AM EDT [facility] Received Date: Franklin Flowers MD LAB BLOOD ORDERABLES [place] l Result Performing Organization Address City/[facility]/ZIP Co de Phone Number [address], [place] [address], [place] [phone] [employer] [facility] [address], [place] [address], [place] [phone] * Hepatitis B Core Antibody, Total (12/11/2024 12:08 PM EDT) Hepatitis B Core Ab Total NON-REACT MARSHALL NON-REACT MARSHALL 12/11/2024 9:08 PM EDT [facility] Comment: For additional information, please refer to http://education.Nimsoft/faq/GXF106 (This link is being provided for informational/ educational purposes only.) Blood Structure of peripheral vein / Unknown Venipuncture / Unknown 12/11/2024 12:08 PM EDT 12/11/2024 12:24 PM EDT Narrative [facility] - 12/11/2024 9:08 PM EDT [facility] Received Date: Franklin Flowers MD LAB BLOOD ORDERABLES [place] Result [facility] [address] [facility] [address] [facility], [place] [address], [place] [phone] [employer] [facility] [address], [place] [address], [place] [phone] * ABO/Rh Blood Type (12/11/2024 12:08 PM EDT) ABO Blood Type AB 12/11/2024 1:50 PM EDT [facility] RH Type Positive 12/11/2024 1:50 PM EDT [facility] Blood Structure of peripheral vein / Unknown Venipuncture / Unknown 12/11/2024 12:08 PM EDT 12/11/2024 1:04 PM EDT us Franklin Flowers MD LAB BLOOD BANK TEST ORDER HENRY Final Result [facility] [address] [place], [place] [address] [address], * (ABNORMAL) Hepatitis B Surface Antibody (12/11/2024 12:08 PM EDT) Pathologist [facility] Hepatitis B Surface Ab Immunity, Qn <5(L) > OR = 10 mIU/mL 12/12/2024 4:47 AM EDT [facility] Comment: PATIENT DOES NOT HAVE IMMUNITY TO HEPATITIS B VIRUS. For additional information, please refer to http://WhiteCloud Analytics.Nimsoft/faq/SUW622 (This link is being provided for informational/ educational purposes only). Blood Structure of peripheral vein / Unknown Venipuncture / Unknown 12/11/2024 12:08 PM EDT 12/11/2024 12:23 PM EDT [facility] - 12/12/2024 4:47 AM EDT [facility] Received Date: Franklin Flowers MD LAB BLOOD ORDERABLES [place] Result [facility] [address] [facility] [address], [place] [address], [employer] [facility] [address] [facility] [address], [place] [address], [place] [phone] * Hepatitis B Surface Antigen w/Confirmation (12/11/2024 12:08 PM EDT) [facility] Hepatitis B Surface Antigen NON-REACT MARSHALL NON-REACT MARSHALL 12/11/2024 9:08 PM EDT [facility] Comment: For additional information, please refer to http://WhiteCloud Analytics.Nimsoft/faq/XTF053 (This link is being provided for informational/ educational purposes only.) Blood Structure of peripheral vein / Unknown Venipuncture / Unknown 12/11/2024 12:08 PM EDT 12/11/2024 12:23 PM EDT [facility] - 12/11/2024 9:08 PM EDT [facility] Received Date: Franklin Flowers MD LAB BLOOD ORDERABLES [place] Result [facility] [address] [facility] [address], [place] [address], [place] [phone] [facility] [address] [facility] [address], [place] [address], * (ABNORMAL) Cytomegalovirus Antibody, IgG (12/11/2024 12:08 PM EDT) Cytomegalovirus Antibody (IgG) >10.00(H ) U/mL 12/11/2024 9:30 PM EDT [facility] Comment: ? U/mL ? Interpretation ? ----- [...] MD LAB BLOOD ORDERABLES [place] Result [facility] [address] [facility] [address], [place] [address], [place] [phone] [employer] [facility] [address] [facility] [address], [place] [address], [place] [phone] * (ABNORMAL) PTT (12/11/2024 12:08 PM EDT) aPTT 36.4(H) 23.0 - 32.0 Seconds 12/11/2024 12:48 PM EDT [facility] Comment: Current PTT reagent is not sensitive to detect all Lupus Anticoagulant (LA) Inhibitor Cases. ?? If a LA is suspected, please order a Lupus Anticoagulation w/ Reflex Test which is performed at [facility] in [place], [place]. Blood Structure of peripheral vein / Unknown Venipuncture / Unknown 12/11/2024 12:08 PM EDT 12/11/2024 12:24 PM EDT Franklin Flowers MD LAB BLOOD ORDERABLES [place] l Result [facility] [address] [place] [address], * (ABNORMAL) Protime-INR (12/11/2024 12:08 PM EDT) PT 23.5(H) 9.6 - 12.4 Seconds 12/11/2024 12:48 PM EDT [facility] INR 2.3 0.9 - 1.1 12/11/2024 12:48 PM EDT [facility] Comment:The optimal therapeu tic INR range for patients treated with Vitamin K antagonists (VKAS, e.g., Warfarin) is 2.0 to 3.5. Discuss the desired range with your doctor/care team. Blood Structure of peripheral vein / Unknown Venipuncture / Unknown 12/11/2024 12:08 PM EDT 12/11/2024 12:24 PM EDT us Franklin Flowers MD LAB BLOOD ORDERABLES [place] Result [facility] [address] [place] [address], * Varicella Zoster Antibody, IgG (12/11/2024 12:08 PM EDT) Varicella Zoster Virus Antibody 32.50 S/CO 12/12/2024 4:28 AM EDT [facility] Comment: ?Signal to Cut-off ? S/CO ?Interpretation [...] EDT 12/11/2024 12:24 PM EDT Narrative [facility] 12/12/2024 4:28 AM EDT [facility] Received Date:[id number] Franklin Flowers MD LAB BLOOD ORDERABLES [place] l Result [facility] [address] [facility] [address]rd [address], [place] [address], [place] [phone] [facility] [address] [facility] 3rd [address], [place] [address], [place] [phone] * (ABNORMAL) BUN (12/11/2024 12:08 PM EDT) BUN 41(H) 7 - 23 mg/dL 12/11/2024 12:59 PM EDT [facility] Blood Structure of peripheral vein / Unknown Venipuncture / Unknown 12/11/2024 12:08 PM EDT 12/11/2024 12:26 PM EDT Franklin Flowers MD LAB BLOOD ORDERABLES [place] Result [facility] [address] [place] [address], [place] * ALT (12/11/2024 12:08 PM EDT) ALT 20 10 - 40 U/L 12/11/2024 12:59 PM EDT [facility] Blood Structure of peripheral vein / Unknown Venipuncture / Unknown 12/11/2024 12:08 PM EDT 12/11/2024 12:26 PM EDT Franklin Flowers MD LAB BLOOD ORDERABLES [place] Result [facility] [address] [place] [address], [place] * AST (12/11/2024 12:08 PM EDT) AST 30 10 - 40 U/L 12/11/2024 12:59 PM EDT [facility] Blood Structure of peripheral vein / Unknown Venipuncture / Unknown 12/11/2024 12:08 PM EDT 12/11/2024 12:26 PM EDT Franklin Flowers MD LAB BLOOD ORDERABLES [place] l Result Performing Organization Address City/[facility]/ZIP Co de Phone Number [facility] [address] [place] [address], * Phosphorus (12/11/2024 12:08 PM EDT) Phosphorus 3.4 2.5 - 4.5 mg/dL 12/11/2024 12:59 PM EDT [facility] Blood Structure of peripheral vein / Unknown Venipuncture / Unknown 12/11/2024 12:08 PM EDT 12/11/2024 12:26 PM EDT Franklin Flowers MD LAB BLOOD ORDERABLES [place] l Result Performing Organization Address [facility] Co de Phone Number [facility] [address] [place] [address] * (ABNORMAL) Creatinine (12/11/2024 12:08 PM EDT) Creatinine 3.06(H) 0.50 - 1.20 mg/dL 12/11/2024 12:59 PM EDT [facility] eGFR 17(L) >=60 mL/min/1 .73m2 12/11/2024 12:59 PM EDT [facility] Comment:The estimated glomer ular filtration rate (eGFR) is calculated using a new formula developed by the [employer] task force to eliminate race-based correction factors. The new formula uses serum/plasma creatinine, age, and gender to determine eGFR. A value below 60mls/min might indicate kidney disease and will be flagged. For additional information, see Shira et al, Am J Kidney Dis. 2022 Feb;79(2):268- 288, A Unifying Approach for GFR estimation: Recommendations of the NKF-ASN Task Force on Reassessing the Inclusion of Race in Diagnosing Kidney Disease . Blood Structure of peripheral vein / Unknown Venipuncture / Unknown 12/11/2024 12:08 PM EDT 12/11/2024 12:26 PM EDT Franklin Flowers MD LAB BLOOD ORDERABLES [place] Result Performing Organization Address [facility]/ZIP Co de Phone Number [facility] [address] [place] [phone], [place] * (ABNORMAL) Calcium (12/11/2024 12:08 PM EDT) Calcium 10.7(H) 8.6 - 10.5 mg/dL 12/11/2024 12:59 PM EDT [facility] Blood Structure of peripheral vein / Unknown Venipuncture / Unknown 12/11/2024 12:08 PM EDT 12/11/2024 12:26 PM EDT Franklin Flowers MD LAB BLOOD ORDERABLES [place] Result Performing Organization Address [facility] Co de Phone Number [facility] [address] [place] [id number], [place] * Bilirubin, Direct (12/11/2024 12:08 PM EDT) Bilirubin, Direct 0.2 <=0.4 mg/dL 12/11/2024 12:59 PM EDT [facility] Blood Structure of peripheral vein / Unknown Venipuncture / Unknown 12/11/2024 12:08 PM EDT 12/11/2024 12:26 PM EDT Franklin Flowers MD LAB BLOOD ORDERABLES [place] Result [facility] [address] [place] [address], [place] * Bilirubin, Total (12/11/2024 12:08 PM EDT) Bilirubin, Total 0.5 0.2 - 1.2 mg/dL 12/11/2024 12:59 PM EDT [facility] Blood Structure of peripheral vein / Unknown Venipuncture / Unknown 12/11/2024 12:08 PM EDT 12/11/2024 12:26 PM EDT Franklin Flowers MD LAB BLOOD ORDERABLES [place] Result Performing Organization Address [facility]/ZIP Co de Phone Number [facility] [address] [place] [address], [place] * Albumin (12/11/2024 12:08 PM EDT) Pathologist [facility] Albumin 4.2 3.5 - 5.2 g/dL 12/11/2024 12:59 PM EDT [facility] Blood Structure of peripheral vein / Unknown Venipuncture / Unknown 12/11/2024 12:08 PM EDT 12/11/2024 12:26 PM EDT Franklin Flowers MD LAB BLOOD ORDERABLES [place] Result Performing Organization Address [facility]/ZIP Co de Phone Number [facility] [address] [place] [address], [place] * (ABNORMAL) Microalbumin, Random Urine with Creatinine (08/07/2023 9:01 AM EST) Pathologist [facility] Creatinine, Random Urine 92 20 - 275 mg/dL 08/08/2023 6:45 PM EST [employer] [facility] Microalbumin 150.8 mg/dL 08/08/2023 6:45 PM EST [employer] [facility] Comment: Verified by repeat analysis. Reference Range Not established Microalbumin/Crea tinine Ratio, Random Urine 1,639(H) <30 mcg/mg creat 08/08/2023 6:45 PM EST [facility] Comment: The ADA defines abnormalities in albumin [...] ORDERABLES Final Resul t [facility] [address] [facility] [address], [place] [address], [employer] [facility] [address] [place] [address] * (ABNORMAL) Vitamin D, 25-Hydroxy, Total, Immunoassay (06/05/2023 11:53 AM EDT) Calcidiol+ercalc idiol 22(L) 30 - 100 ng/mL 06/05/2023 9:28 PM EDT [facility] Comment: Vitamin D Status ? 25-OH Vitamin D: Deficiency: ?<20 ng/mL Insufficiency: ? 20 - 29 ng/mL Optimal: ? > or = 30 ng/mL For 25-OH Vitamin D testing on patients on D2-supplementation and patients for whom quantitation of D2 and D3 fractions is required, the QuestAssureD(TM) 25-OH VIT D, (D2,D3), LC/MS/MS is recommended: order code 72536 (patients >2yrs). See Note 1 Note 1 For additional information, please refer to http://education.ClarityAd/faq/QFJ188 (This link is being provided for informational/ educational purposes only.) Blood Structure of peripheral vein / Unknown 06/05/2023 11:53 AM EDT 06/05/2023 7:56 PM EDT Narrative [facility] - 06/09/2023 5:04 AM EDT FASTING:NO us Anupama Bynum DO LAB BLOOD ORDERABLES Final Resul t [facility] [address] [facility] [address], [place] [address], [employer] [facility] [address] [place] [address] * (ABNORMAL) PTH, Intact (without Calcium) (06/05/2023 11:53 AM EDT) Parathyroid Hormone, Intact 205(H) 16 - 77 pg/mL 06/06/2023 1:16 AM EDT [facility] Comment: Interpretive Guide ?Intact PTH ? Calcium [...] ORDERABLES Final Resul t [facility] [address] [facility] [address], [place] [address], [place] [phone] [employer] [facility] [address] [place] [address] * (ABNORMAL) Renal Function Panel (06/05/2023 11:53 AM EDT) [facility] Glucose 89 65 - 139 mg/dL 06/05/2023 10:49 PM EDT [employer] [facility] Comment: ? Non-fasting reference interval BUN 39(H) 7 - 25 mg/dL 06/05/2023 10:49 PM EDT [employer] [facility] Creatinine 2.61(H) 0.50 - 1.03 mg/dL 06/05/2023 10:49 PM EDT [employer] [facility] eGFR 21(L) > OR = 60 mL/min/1. 73m2 06/05/2023 10:49 PM EDT [employer] [facility] Bun/Creatinine Ratio 15 6 - 22 (calc) 06/05/2023 10:49 PM EDT [employer] [facility] Sodium 137 135 - 146 mmol/L 06/05/2023 10:49 PM EDT [employer] [facility] Potassium 4.6 3.5 - 5.3 mmol/L 06/05/2023 10:49 PM EDT [employer] [facility] Chloride 111(H) 98 - 110 mmol/L 06/05/2023 10:49 PM EDT [employer] [facility] Carbon Dioxide 18(L) 20 - 32 mmol/L 06/05/2023 10:49 PM EDT [employer] [facility] Calcium 9.8 8.6 - 10.4 mg/dL 06/05/2023 10:49 PM [employer] [facility] Phosphate 3.5 2.5 - 4.5 mg/dL 06/05/2023 10:49 PM [employer] [facility] Albumin 4.0 3.6 - 5.1 g/dL 06/05/2023 10:49 PM [employer] [facility] Blood Structure of peripheral vein / Unknown 06/05/2023 11:53 AM EDT 06/05/2023 7:56 PM EDT Narrative [facility] - 06/09/2023 5:04 AM EDT FASTING:NO us Anupama Bynum LAB BLOOD ORDERABLES Final Resul t [facility] [address] [facility] [address], [place] [address], [employer] [facility] [address] [place] [address] from Last 3 Months or Most Recently Relevant to Health Maintenance Insurance * Guarantor: Aneta Gan Account Type Relation to Patient Date of Phone Billing Address Personal/Family Self 1965 [phone] (Work) [address] [place] [address] [facility] * Guarantor: Aneta Gan Account Type Relation to Patient Date of Phone Billing Address Transplant Self 1965 [phone] (Work) [address] [place] [address] [facility] Advance Directives Documents on File Type Date Recorded Patient Emergency Veterinarian Expl [facility] Care Proxy 12/25/2024 8:48 AM 12/11 Care Teams [employer] [place] Consultant Relationship Specialty Start Date End Date Franklin Sanchez PA [address] [place] [id number] PCP - General 06/05/23
== END 2025-01-13 15:22 | disposition home or self-care (01) ==
LOC: HO.ACS 15:10
PROVIDERS: PCP Physician Assistant; Visit Provider Internal Medicine Medical Oncology
DX: Z79.01 Long term (current) use of anticoagulants (principal)

== ENCOUNTER → 2025-01-13 15:10 | Outpatient (BNVA) | payer OTHER, MEDICAID, SELFPAY | PROVIDERS: PCP Physician Assistant; Visit Provider Internal Medicine Medical Oncology | DX: I26.99 Other pulmonary embolism without acute cor pulmonale (principal); Z51.81 Encounter for therapeutic drug level monitoring; Z79.01 Long term (current) use of anticoagulants | CPT/HCPCS: 85610; 99211 ==

== ENCOUNTER 2025-02-03 14:58 | Outpatient (AMB) | payer OTHER, MEDICAID, SELFPAY ==
[2025-02-03 15:15] LABS: Prothrombin Time Whole Bld POC 30.7 sec (11.1-13.5); ~PT, ~INR - Anti Coag Clinic 2.6 (0.9-1.1)
--- NOTE | 2025-02-03 15:15 | MHC.OFFVISCO ---
Intake Intake Visit Reasons: Anticoagulation Allergies rituximab (From Rituxan) Allergy (Severe, Verified 02/03/25 15:10) Anaphylaxis cephalexin (From Keflex) Allergy (Unknown, Verified 02/03/25 15:10) RED+ITCHY,RASH Cephalosporins (CEPHALOSPORINS) Allergy (Unknown, Verified 02/03/25 15:10) RED+ITCHY Sulfa (Sulfonamide Antibiotics) (SULFA(SULFONAMIDE ANTIBIOTICS)) Allergy (Unknown, Verified 02/03/25 15:10) RED+ITCHY mycophenolate mofetil (From CellCept) Adverse Reaction (Intermediate, Verified 02/03/25 15:10) rash cellcept Allergy (Severe, Uncoded 01/13/25 15:11) Hives retuxin Adverse Reaction (Severe, Uncoded 01/13/25 15:11) Abdominal Pain Medication List - Last Reconciled 02/03/25 by Stephanie Tran, RN atorvastatin 20 mg PO BEDTIME 30 days calcitriol 0.25 mcg PO DAILY clobetasol 0.05% 1 appl topical DAILY fluocinonide 0.05% appl topical gabapentin 200 mg PO DAILY PRN levothyroxine 100 mcg PO DAILY lisinopril 2.5 mg PO DAILY loratadine 10 mg PO DAILY PRN magnesium oxide 250 mg PO BID prednisone 2.5 mg PO DAILY sodium bicarbonate 650 mg PO BID warfarin 5 mg See Protocol PO DAILY Nursing Note NO CP,SOB,DIET/MED CHANGES,FALLS OR SX OF BLEEDING. CONTINUE PRESENT DOSE AND FOLLOW-UP IN 4 WEEKS. GOOD UNDERSTANDING OF DOSING INSTR. 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
--- OUTSIDE RECORDS SUMMARY | 2025-02-03 15:53 | XMS_ITS | Clinical Summary ---
Author Organization [facility] Address [address] [place] [address] Care Team Providers Care Meter/Relay Craftsman Name Role Phone Franklin Sanchez Primary Care Provider [phone] Allergies Active Allergy Reactions Criticality Noted Date [...] propionate (FLONASE) 50 mcg/actuation nasal spray SMARTSI [place](s) Both Nares Twice Daily 5 Active sodium bicarbonate 650 mg tablet SMARTSI Tablet(s) By Mouth Twice Daily 5 Active predniSONE (DELTASONE) 2.5 mg tablet 5 Active Active Problems No known active problems Encounters Date Type Department Care Team Description 01/12/2025 Orders Only External Imaging [address] [place] [address] Radiology, External 12/18/2024 Telephone [facility] Transplant Department [address] [place] [address] Zenobia Zepeda, RN 12/12/2024 Telephone [facility] Transplant Department [address] [place] [address] Linh Patel RN 12/12/2024 Documentation [facility] Transplant Department [address] [place] [address] Delores Sepulveda LICSW 12/11/2024 12:00 PM EDT Lab [facility] Draw Site [address] [place] [address] Pre-transplant evaluation for end stage renal disease; Chronic kidney disease, stage IV (severe) ([facility]) 12/11/2024 10:15 AM EDT Office Visit [facility] Renal Transplant [address] [place] [address] Franklin Flowers MD Pre-transplant evaluation for kidney transplant (Primary Dx); Pre-transplant evaluation for end stage renal disease; Stage 5 chronic kidney disease not on chronic dialysis ([facility]) 12/11/2024 9:30 AM EDT Social Work [facility] Renal Transplant [address] [place] [address] Delores Sepulveda LICSW 12/11/2024 8:30 AM EDT Evaluation [facility] Renal Transplant [address] [place] [address] Zenobia Zepeda, RN Pre-transplant evaluation for kidney transplant (Primary Dx); ESRD (end stage renal disease) ([facility]) 12/11/2024 8:00 AM EDT Office Visit [facility] Renal Transplant [address] [place] [address] Evon Sierra LPN Pre-transplant evaluation for kidney transplant (Primary Dx) 12/08/2024 Telephone [facility] Transplant Department [address] [place] [address] Zenobia Zepeda RN 12/04/2024 Orders Only [facility] Transplant Department [address] [place] [address] Zenobia Zepeda RN Pre-transplant evaluation for end stage renal disease (Primary Dx); Chronic kidney disease, stage IV (severe) (HCC) from Last 3 Months Family History Medical [...] 63 12/11/2024 8:12 AM EDT Temperature 36.1 C (97 F) 12/11/2024 8:12 AM EDT Respiratory Rate 20 [...] Info) Description 12/08/2025 8:20 AM EDT Follow-Up [facility] Renal Transplant [address] [place] [address] Franklin Flowers MD [address] [place] [address] 12/08/2025 9:00 AM EDT Social Work [facility] Renal Transplant [address] [place] [address] Delores Sepulveda, CAMERA REPAIRER [address] [place] [address] Health Maintenance Due Date Last Done Comments [...] Urine Microalbumin 08/07/2024 08/07/2023, 1 , 06/05/2023 Influenza Vaccine (#1) 2025 , 07/12/2022, 06/11/2019, Additional history exists Hemoglobin 12/11/2025 12/11/2024, 06/05/2023 Phosphorus 12/11/2025 12/11/2024, 06/05/2023 RSV Vaccine (60+ years old a nd patients) (1 - 1-dose 75+ series) 2040 CKD: Referral to Nephrology Completed 12/11/2024 HIV Screening Completed 12/11/2024 Hepatitis C Screening Completed 12/11/2024 Procedures * Due to [place] state law, this organization might not be sharing negative HIV tests. Procedure Name Priority Date/Time Associated Diagnosis Comments ECHO OUTSIDE FILMS Routine 01/29/2025 11:36 AM EDT ALBUMIN Routine 12/11/2024 12:08 PM EDT Pre-transplant [...] IV (severe) (HCC) QUANTIFERON-TB GOLD PLUS, 1 [id number] Routine 12/11/2024 12:08 PM EDT Pre-transplant evaluation for end stage renal disease Chronic kidney disease, stage IV (severe) (HCC) RPR (DIAGNOSIS) W/REFLEX TO TITER & TPPA [id number] Routine 12/11/2024 12:08 PM EDT Pre-transplant evaluation for end stage renal disease Chronic kidney disease, stage IV (severe) (HCC) VARICELLA ZOSTER ANTIBODY, IGG Routine 12/11/2024 12:08 PM EDT Pre-transplant evaluation for end stage renal disease Chronic kidney disease, stage IV (severe) (HCC) HLA TRANSPLANT WORK-UP (ALLELE LEVEL A/B/C/DRB1/WPG532/DQA 1/DQB1/DPA1/DPB1) Routine 12/11/2024 12:08 PM EDT Pre-transplant [...] to Health Maintenance Results * Due to [place] state law, this organization might not be sharing negative HIV tests. * Echo Outside Films (01/29/2025 11:36 AM EDT) Narrative 01/29/2025 11:36 AM EDT This order has been auto-finalized and does not contain a result. us External Radiology CV ECHO PROCEDURES Final Resu lt * HLA Transplan Work-Up(Allele Level A/B/C/DRB1/GZW109/DQA1/DQB1/DPA1/DPB1) (12/11/2024 12:08 PM EDT) Pathologist [facility] Histocompatibility Laboratory Information See Below 12/16/2024 4:30 PM EDT [facility] Comment: SUNI: [id number] Director: Hussein Olivo MD. [facility] PFI: [id number] UNOS: [id number] This test was developed and its performance [...] LAB ORDERABLES Edited Result - Final [facility] [address] [place] [address] Rm: [id number] [place] [address], * MMR Panel, IgG (12/11/2024 12:08 PM EDT) Measles Antibody (IgG), Immune Status >300.00 AU/mL 12/11/2024 9:31 PM EDT [facility] Comment: AU/mL Interpretation ----- <13.50 Not consistent with immunity 13.50-16.49 Equivocal >16.49 Consistent with immunity The presence of measles IgG suggests immunization or past or current infection with measles virus. For additional information, please refer to http://education.beStylish.com/faq/XGS334 (This link is being provided for informational/ educational purposes only.) Mumps Antibody (IgG), Immune Status 114.00 AU/mL 12/11/2024 9:31 PM EDT [facility] Comment: AU/mL Interpretation ------- <9.00 Not consistent with immunity 9.00-10.99 Equivocal >10.99 Consistent with immunity The presence of mumps IgG antibody suggests immunization or past or current infection with mumps virus. Rubella Antibody (IgG), Immune Status 20.40 Index 12/11/2024 9:31 PM EDT [facility] Comment: Index Interpretation ----- <0.90 Not consistent with immunity 0.90-0.99 Equivocal > or = 1.00 Consistent with immunity The presence of rubella IgG antibody suggests immunization or past or current infection with rubella virus. Blood Structure of peripheral vein / Unknown Venipuncture / Unknown 12/11/2024 12:08 PM EDT 12/11/2024 12:23 PM EDT Ricky NAVA - 12/11/2024 9:31 PM EDT [facility] Received Date:[id number] Franklin Flowers MD LAB BLOOD ORDERABLES [place] bartholomew Result LULA HUNTLAND [address] [facility] 3rd Floor, [place] [address], Potential [facility] 200 [facility] 3rd Floor, [place] [address], * (ABNORMAL) Herpes Simplex Virus 1&2, IgG (12/11/2024 12:08 PM EDT) Pathologist [facility] HSV 1 IgG Type Specific Ab 44.60(H) index 12/12/2024 4:21 AM EDT Potential [facility] HSV 2 IgG Type Specific Ab 14.90(H) index 12/12/2024 4:21 AM EDT [facility] Comment: Index Interpretation ----- <0.90 Negative 0.90-1.09 Equivocal >1.09 Positive This assay utilizes recombinant type-specific antigens to [...] screening. For additional information, please refer to http://education.Joint Loyalty.Analytics Quotient/faq/TLW339 (This link is being provided for informational/ educational purposes only.) Blood Structure of peripheral vein / Unknown Venipuncture / Unknown 12/11/2024 12:08 PM EDT 12/11/2024 12:24 PM EDT Ricky NAVA - 12/12/2024 4:21 AM EDT [facility] Received Date: Franklin Flowers MD LAB BLOOD ORDERABLES [place] l Result [facility] [address], [place] [address], [place] [phone] Potential [facility] [address], [place] [address], [place] [phone] * RPR (Diagnosis) w/Reflex to Titer & TPPA Confirm (12/11/2024 12:08 PM EDT) RPR W/Refl Titer NON-REACT MARSHALL NON-REACT MARSHALL 12/12/2024 11:54 AM EDT Potential [facility] Blood Structure of peripheral vein / Unknown Venipuncture / Unknown 12/11/2024 12:08 PM EDT 12/11/2024 12:24 PM EDT Narrative [facility] - 12/12/2024 11:54 AM EDT [facility] Received Date: us Franklin Flowers MD LAB BLOOD ORDERABLES [place] l Result [facility] [address] [facility] [address] [facility], [place] [address], [place] [phone] Potential [facility] [address], [place] [address], [place] [phone] * QuantiFERON-TB Gold Plus, 1 Tube (12/11/2024 12:08 PM EDT) QuantiFERON-TB Gold Plus NEGATIVE NEGATIVE 12/14/2024 2:16 AM EDT Potential [facility] Comment: Negative test result. M. tuberculosis complex infection unlikely. NIL 0.03 IU/mL 12/14/2024 2:16 AM EDT Potential [facility] Mitogen-NIL 9.50 IU/mL 12/14/2024 2:16 AM EDT Potential [facility] TB1-NIL 0.02 IU/mL 12/14/2024 2:16 AM EDT Potential [facility] TB2-NIL 0.01 IU/mL 12/14/2024 2:16 AM EDT [facility] Comment: The Nil tube value reflects [...] T-lymphocytes. For additional information, please refer to https://education.Beyond Oblivion/faq/MTO538 (This link is being provided for informational/ educational purposes only.) Blood Structure of peripheral vein / Unknown Venipuncture / Unknown 12/11/2024 12:08 PM EDT 12/11/2024 12:22 PM EDT Narrative [facility] - 12/14/2024 2:16 AM EDT [facility] Received Date: Franklin Flowers MD LAB BLOOD ORDERABLES [place] l Result [facility] [address] [facility] 3rd Floor, [place] [address], [place] [phone] Potential [facility] 200 [facility] 3rd Floor, [place] [address], [place] [phone] * (ABNORMAL) CBC Auto Differential (12/11/2024 12:08 PM EDT) [facility] WBC 6.6 3.8 - 10.8 10*3/uL 12/11/2024 12:32 PM EDT [facility] RBC 3.52(L) 3.80 - 5.10 10*6/uL 12/11/2024 12:32 PM EDT [email or web address] Hemoglobin 10.4(L) 11.7 - 15.5 g/dL 12/11/2024 12:32 PM EDT [email or web address] Hematocrit 33.1(L) 35.0 - 45.0 % 12/11/2024 12:32 PM EDT [email or web address] MCV 94.0 80.0 - 100.0 fL 12/11/2024 12:32 PM EDT [email or web address] MCH 29.5 27.0 - 33.0 pg 12/11/2024 12:32 PM EDT [email or web address] MCHC 31.4(L) 32.0 - 36.0 g/dL 12/11/2024 12:32 PM EDT [email or web address] RDW 13.3 11.0 - 15.0 % 12/11/2024 12:32 PM EDT [email or web address] Platelets 289 140 - 400 10*3/uL 12/11/2024 12:32 PM EDT [email or web address] MPV 10.4 7.5 - 12.5 fL 12/11/2024 12:32 PM EDT [email or web address] Neutrophil % 58.9 % 12/11/2024 12:32 PM EDT [email or web address] Immature Grans % 0.5 0.0 - 0.9 % 12/11/2024 12:32 PM EDT [email or web address] Lymphocyte % 30.5 % 12/11/2024 12:32 PM EDT [email or web address] Monocyte % 5.8 % 12/11/2024 12:32 PM EDT [email or web address] Eosinophil % 3.8 % 12/11/2024 12:32 PM EDT [email or web address] Basophil % 0.5 % 12/11/2024 12:32 PM EDT [email or web address] Neutrophil # 3.86 1.50 - 7.80 10*3/uL 12/11/2024 12:32 PM EDT [facility] Immature Grans # 0.03 <=0.03 10*3/uL 12/11/2024 12:32 PM EDT [facility] [employer] [facility] Lymphocyte # 2.00 0.85 - 3.90 10*3/uL 12/11/2024 12:32 PM EDT [facility] Monocyte # 0.40 0.20 - 0.95 10*3/uL 12/11/2024 12:32 PM EDT [facility] [employer] [facility] Eosinophil # 0.30 0.02 - 0.50 10*3/uL 12/11/2024 12:32 PM EDT [facility] [employer] [facility] Basophil # <0.03 0.00 - 0.20 10*3/uL 12/11/2024 12:32 PM EDT [facility] [employer] [facility] nRBC % 0.0 /100 WBCs 12/11/2024 12:32 PM EDT [facility] nRBC # <0.01 <0.01 10*3/uL 12/11/2024 12:32 PM EDT [employer] [facility] [employer] Blood Structure of peripheral vein / Unknown Venipuncture / Unknown 12/11/2024 12:08 PM EDT 12/11/2024 12:24 PM EDT us Franklin Flowers MD LAB BLOOD ORDERABLES [place] l Result [facility] [address] [place] [address], * (ABNORMAL) Timo-Lee Virus VCA Antibody Panel (12/11/2024 12:08 PM EDT) EBV Viral Capsid Ag Ab (IGM) <36.00 U/mL 12/12/2024 4:20 AM EDT [facility] Comment: U/mL Interpretation ---- <36.00 Negative 36.00-43.99 Equivocal >43.99 Positive EBV Viral Capsid Ag Ab (IGG) 386.00(H) U/mL 12/12/2024 4:20 AM EDT [facility] Comment: U/mL Interpretation ---- <18.00 Negative 18.00-21.99 Equivocal >21.99 Positive EBV Nuclear Ag Ab >600.00(H) U/mL 025 4:20 AM EDT [facility] Comment: U/mL Interpretation ---- <18.00 Negative 18.00-21.99 Equivocal >21.99 Positive Interpretation: See Comments 12/12/2024 4:20 AM EDT [facility] Comment: Suggestive of a past Timo-Lee virus infection. In infants, a similar pattern may occur as a result of passive maternal transfer of antibody. Blood Structure of peripheral vein / Unknown Venipuncture / Unknown 12/11/2024 12:08 PM EDT 12/11/2024 12:23 PM EDT Narrative LULA HUNTLAND - 12/12/2024 4:20 AM EDT [facility] Received Date: Franklin Flowers MD LAB BLOOD ORDERABLES [place] l Result [facility] 200 [facility] 3rd Floor, [place] [address], [facility] 200 [facility] 3rd Floor, [place] [address], * Hepatitis C Antibody w/Reflex to PCR (12/11/2024 12:08 PM EDT) Pathologist [facility] Hepatitis C Antibody NON-REACT MARSHALL NON-REACT MARSHALL 12/12/2024 6:33 AM EDT [facility] Comment: HCV antibody was non-reactive. There is no laboratory evidence of HCV infection. In most cases, no further action is required. However, if recent HCV exposure is suspected, a test for HCV RNA (test code 92020) is suggested. For additional information please refer to http://latakoo.Beyond Oblivion/faq/IFA95g6 (This link is being provided for informational/ educational purposes only.) Blood Structure of peripheral vein / Unknown Venipuncture / Unknown 12/11/2024 12:08 PM EDT 12/11/2024 12:23 PM EDT Narrative [facility] - 12/12/2024 6:33 AM EDT [facility] Received Date: Franklin Flowers MD LAB BLOOD ORDERABLES [place] l Result Performing Organization Address City/[facility]/ZIP Co de Phone Number LULA HUNTLAND [address], [place] [address], [place] [phone], [place] [address], [place] [phone] * (ABNORMAL) Hepatitis A Antibody, Total (12/11/2024 12:08 PM EDT) Hepatitis A Ab, Total REACTIVE( A) NON-REACT MARSHALL 12/12/2024 5:23 AM EDT [facility] Comment: For additional information, please refer to http://latakoo.Beyond Oblivion/faq/YLD309 (This link is being provided for informational/ educational purposes only.) Blood Structure of peripheral vein / Unknown Venipuncture / Unknown 12/11/2024 12:08 PM EDT 12/11/2024 12:23 PM EDT Narrative [employer] - 12/12/2024 5:23 AM EDT [facility] Received Date: Franklin Flowers MD LAB BLOOD ORDERABLES [place] l Result Performing Organization Address City/[facility]/ZIP Co de Phone Number LULA HUNTLAND [address], [place] [address], [place] [phone] Potential [facility] [address], [place] [address], [place] [phone] * Hepatitis B Core Antibody, Total (12/11/2024 12:08 PM EDT) Hepatitis B Core Ab Total NON-REACT MARSHALL NON-REACT MARSHALL 12/11/2024 9:08 PM EDT [facility] Comment: For additional information, please refer to http://education.Beyond Oblivion/faq/KAO413 (This link is being provided for informational/ educational purposes only.) Blood Structure of peripheral vein / Unknown Venipuncture / Unknown 12/11/2024 12:08 PM EDT 12/11/2024 12:24 PM EDT Narrative [facility] - 12/11/2024 9:08 PM EDT [facility] Received Date: Franklin Flowers MD LAB BLOOD ORDERABLES [place] l Result [facility] [address] [facility] [address] [facility], [place] [address], [place] [phone] Potential [facility] [address], [place] [address], [place] [phone] * ABO/Rh Blood Type (12/11/2024 12:08 PM EDT) ABO Blood Type AB 12/11/2024 1:50 PM EDT [facility] RH Type Positive 12/11/2024 1:50 PM EDT [facility] Blood Structure of peripheral vein / Unknown Venipuncture / Unknown 12/11/2024 12:08 PM EDT 12/11/2024 1:04 PM EDT Franklin Flowers MD LAB BLOOD BANK TEST ORDER HENRY Final Result [facility] [address] [place] [address], [place] [phone] * (ABNORMAL) Hepatitis B Surface Antibody (12/11/2024 12:08 PM EDT) Pathologist [facility] Hepatitis B Surface Ab Immunity, Qn <5(L) > OR = 10 mIU/mL 12/12/2024 4:47 AM EDT [facility] Comment: PATIENT DOES NOT HAVE IMMUNITY TO HEPATITIS B VIRUS. For additional information, please refer to http://latakoo.Beyond Oblivion/faq/QRT834 (This link is being provided for informational/ educational purposes only). Blood Structure of peripheral vein / Unknown Venipuncture / Unknown 12/11/2024 12:08 PM EDT 12/11/2024 12:23 PM EDT [employer] [facility] - 12/12/2024 4:47 AM EDT [facility] Received Date: Franklin Flowers MD LAB BLOOD ORDERABLES [place] l Result [facility] [address] [facility] 3rd Floor, [place] [address], Potential [facility] 200 [facility] 3rd Floor, [place] [address], * Hepatitis B Surface Antigen w/Confirmation (12/11/2024 12:08 PM EDT) Pathologist [facility] Hepatitis B Surface Antigen NON-REACT MARSHALL NON-REACT MARSHALL 12/11/2024 9:08 PM EDT [facility] Comment: For additional information, please refer to http://latakoo.Beyond Oblivion/faq/BIS491 (This link is being provided for informational/ educational purposes only.) Blood Structure of peripheral vein / Unknown Venipuncture / Unknown 12/11/2024 12:08 PM EDT 12/11/2024 12:23 PM EDT Rabbit HUNTLAND - 12/11/2024 9:08 PM EDT [facility] Received Date: Franklin Flowers MD LAB BLOOD ORDERABLES [place] l Result Performing Organization Address City/[facility]/ZIP Co de Phone Number [facility] [address], [place] [address], [place] [phone] Potential [facility] [address], [place] [address], [place] [phone] * (ABNORMAL) Cytomegalovirus Antibody, IgG (12/11/2024 12:08 PM EDT) Pathologist [facility] Cytomegalovirus Antibody (IgG) >10.00(H ) U/mL 12/11/2024 9:30 PM EDT Potential [facility] Comment: U/mL Interpretation ----- <0.60 Negative 0.60-0.69 Equivocal > or = 0.70 Positive A positive result indicates that the patient has antibody to CMV. It does not differentiate between an active or past infection. Blood Structure of peripheral vein / Unknown Venipuncture / Unknown 12/11/2024 12:08 PM EDT 12/11/2024 12:23 PM EDT Narrative [facility] - 12/11/2024 9:30 PM EDT [facility] Received Date: Franklin Flowers MD LAB BLOOD ORDERABLES [place] l Result Performing Organization Address City/[facility] Co de Phone Number LULA NAVA [address], [place] [address], [place] [phone] Potential [facility] [address], [place] [address], [place] [phone] * (ABNORMAL) PTT (12/11/2024 12:08 PM EDT) Pathologist [facility] aPTT 36.4(H) 23.0 - 32.0 Seconds 12/11/2024 12:48 PM EDT [employer] [facility] [employer] Comment: Current PTT reagent is not sensitive to detect all Lupus Anticoagulant (LA) Inhibitor Cases. If a LA is suspected, please order a Lupus Anticoagulation w/ Reflex Test which is performed at [facility] in [place], [place]. Blood Structure of peripheral vein / Unknown Venipuncture / Unknown 12/11/2024 12:08 PM EDT 12/11/2024 12:24 PM EDT Franklin Flowers MD LAB BLOOD ORDERABLES [place] l Result Performing Organization Address [facility] Co de Phone Number [facility] [address] [place] [phone], * (ABNORMAL) Protime-INR (12/11/2024 12:08 PM EDT) Pathologist [facility] PT 23.5(H) 9.6 - 12.4 Seconds 12/11/2024 12:48 PM EDT [facility] [employer] [facility] INR 2.3 0.9 - 1.1 12/11/2024 12:48 PM EDT [facility] [employer] [facility] Comment:The optimal therapeu tic INR range for patients treated with Vitamin K antagonists (VKAS, e.g., Warfarin) is 2.0 to 3.5. Discuss the desired range with your doctor/care team. Blood Structure of peripheral vein / Unknown Venipuncture / Unknown 12/11/2024 12:08 PM EDT 12/11/2024 12:24 PM EDT Franklin Flowers MD LAB BLOOD ORDERABLES [place] l Result Performing Organization Address [facility] Co de Phone Number [facility] [address] [place] [address], * Varicella Zoster Antibody, IgG (12/11/2024 12:08 PM EDT) Pathologist [facility] Varicella Zoster Virus Antibody 32.50 S/CO 12/12/2024 4:28 AM EDT [facility] Comment: Signal to Cut-off S/CO Interpretation --------- <1.00 Negative - Antibody not detected > or = 1.00 Positive - Antibody detected A positive result indicates that the patient has antibody to VZV but does not differentiate between an active or past infection. The clinical diagnosis must be interpreted in conjunction with the clinical signs and symptoms of the patient. This assay reliably measures immunity due to previous infection but may not be sensitive enough to detect antibodies induced by vaccination. Thus, a negative result in a vaccinated individual does not necessarily indicate susceptibility to VZV infection. A more sensitive test for vaccination-induced immunity is Varicella Zoster Virus Antibody Immunity Screen, ACIF. Blood Structure of peripheral vein / Unknown Venipuncture / Unknown 12/11/2024 12:08 PM EDT 12/11/2024 12:24 PM EDT Narrative [facility] - 12/12/2024 4:28 AM EDT [facility] Received Date: Franklin Flowers MD LAB BLOOD ORDERABLES [place] l Result [facility] [address] [facility] [address] [facility], [place] [address], [place] [phone], [place] [address], [place] [phone] * (ABNORMAL) BUN (12/11/2024 12:08 PM EDT) BUN 41(H) 7 - 23 mg/dL 12/11/2024 12:59 PM EDT [facility] Blood Structure of peripheral vein / Unknown Venipuncture / Unknown 12/11/2024 12:08 PM EDT 12/11/2024 12:26 PM EDT Franklin Flowers MD LAB BLOOD ORDERABLES [place] Result [facility] [address] [place] [address], [place] * ALT (12/11/2024 12:08 PM EDT) ALT 20 10 - 40 U/L 12/11/2024 12:59 PM EDT [facility] Blood Structure of peripheral vein / Unknown Venipuncture / Unknown 12/11/2024 12:08 PM EDT 12/11/2024 12:26 PM EDT Franklin Flowers MD LAB BLOOD ORDERABLES [place] Result [facility] [address] [place] [address], [place] * AST (12/11/2024 12:08 PM EDT) AST 30 10 - 40 U/L 12/11/2024 12:59 PM EDT [facility] Blood Structure of peripheral vein / Unknown Venipuncture / Unknown 12/11/2024 12:08 PM EDT 12/11/2024 12:26 PM EDT Franklin Flowers MD LAB BLOOD ORDERABLES [place] Result Performing Organization Address City/[facility]/ZIP Co de Phone Number [facility] [address] [place] [address], [place] * Phosphorus (12/11/2024 12:08 PM EDT) Phosphorus 3.4 2.5 - 4.5 mg/dL 12/11/2024 12:59 PM EDT [facility] Blood Structure of peripheral vein / Unknown Venipuncture / Unknown 12/11/2024 12:08 PM EDT 12/11/2024 12:26 PM EDT Franklin Flowers MD LAB BLOOD ORDERABLES [place] Result [facility] [address] [place] [address], * (ABNORMAL) Creatinine (12/11/2024 12:08 PM EDT) Creatinine 3.06(H) 0.50 - 1.20 mg/dL 12/11/2024 12:59 PM EDT [facility] eGFR 17(L) >=60 mL/min/1 .73m2 12/11/2024 12:59 PM EDT [facility] Comment:The estimated glomer [...] MD LAB BLOOD ORDERABLES [place] Result [facility] [address] [place] [address], * (ABNORMAL) Calcium (12/11/2024 12:08 PM EDT) Calcium 10.7(H) 8.6 - 10.5 mg/dL 12/11/2024 12:59 PM EDT [facility] Blood Structure of peripheral vein / Unknown Venipuncture / Unknown 12/11/2024 12:08 PM EDT 12/11/2024 12:26 PM EDT Franklin Flowers MD LAB BLOOD ORDERABLES [place] Result Performing Organization Address City/[facility]/ZIP Co de Phone Number [id number] [address] [place] [phone], [place] * Bilirubin, Direct (12/11/2024 12:08 PM EDT) Bilirubin, Direct 0.2 <=0.4 mg/dL 12/11/2024 12:59 PM EDT [facility] Blood Structure of peripheral vein / Unknown Venipuncture / Unknown 12/11/2024 12:08 PM EDT 12/11/2024 12:26 PM EDT Franklin Flowers MD LAB BLOOD ORDERABLES [place] Result Performing Organization Address [facility] Co de Phone Number [id number] [address] [place] [phone], [place] * Bilirubin, Total (12/11/2024 12:08 PM EDT) Bilirubin, Total 0.5 0.2 - 1.2 mg/dL 12/11/2024 12:59 PM EDT [facility] Blood Structure of peripheral vein / Unknown Venipuncture / Unknown 12/11/2024 12:08 PM EDT 12/11/2024 12:26 PM EDT Franklin Flowers MD LAB BLOOD ORDERABLES [place] Result Performing Organization Address City/[facility]/ZIP Co de Phone Number [id number] [address] [place] [phone], [place] * Albumin (12/11/2024 12:08 PM EDT) Albumin 4.2 3.5 - 5.2 g/dL 12/11/2024 12:59 PM EDT [facility] Blood Structure of peripheral vein / Unknown Venipuncture / Unknown 12/11/2024 12:08 PM EDT 12/11/2024 12:26 PM EDT Franklin Flowers MD LAB BLOOD ORDERABLES [place] Result [facility] [address] [place] [address], * (ABNORMAL) Microalbumin, Random Urine with Creatinine (08/07/2023 9:01 AM EST) Creatinine, Random Urine 92 20 - 275 mg/dL 08/08/2023 6:45 PM EST [facility] Microalbumin 150.8 mg/dL 08/08/2023 6:45 PM EST Potential [facility] Comment: Verified by repeat analysis. Reference Range Not established Microalbumin/Crea tinine Ratio, Random Urine 1,639(H) <30 mcg/mg creat 08/08/2023 6:45 PM EST Potential [facility] Comment: The ADA defines abnormalities in albumin excretion as follows: Albuminuria Category Result (mcg/mg creatinine) Normal to Mildly increased <30 Moderately increased 30-299 Severely increased > OR = 300 The ADA recommends that at least two of three specimens collected within a 3-6 month period be abnormal before considering a patient to be within a diagnostic category. Urine Voided urine specimen / Unknown 08/07/2023 9:01 AM EST 08/07/2023 11:48 PM EST Anupama Bynum DO LAB URINE ORDERABLES Ruby Lynch t [facility] [address], [place] [address], Potential [facility] [address] [place] [address] * (ABNORMAL) Vitamin D, 25-Hydroxy, Total, Immunoassay (06/05/2023 11:53 AM EDT) Calcidiol+ercalc idiol 22(L) 30 - 100 ng/mL 06/05/2023 9:28 PM EDT [facility] Comment: Vitamin D Status 25-OH Vitamin D: Deficiency: <20 ng/mL Insufficiency: 20 - 29 ng/mL Optimal: > or = 30 ng/mL For 25-OH Vitamin D testing on patients on D2-supplementation and patients for whom quantitation of D2 and D3 fractions is required, the QuestAssureD(TM) 25-OH VIT D, (D2,D3), LC/MS/MS is recommended: order code 95271 (patients >2yrs). See Note 1 Note 1 For additional information, please refer to http://education.beSty[employer].com/faq/HWS143 (This link is being provided for informational/ educational purposes only.) Blood Structure of peripheral vein / Unknown 06/05/2023 11:53 AM EDT 06/05/2023 7:56 PM EDT Narrative [facility] - 06/09/2023 5:04 AM EDT FASTING:NO us Anupama Bynum DO LAB BLOOD ORDERABLES Final Resul t [facility] [address], [place] [address], Potential [facility] [address] [place] [address] * (ABNORMAL) PTH, Intact (without Calcium) (06/05/2023 11:53 AM EDT) Parathyroid Hormone, Intact 205(H) 16 - 77 pg/mL 06/06/2023 1:16 AM EDT [facility] Comment: Interpretive Guide Intact PTH Calcium ------- Normal Parathyroid Normal Normal Hypoparathyroidism Low or Low Normal Low Hyperparathyroidism Primary Normal or High High Secondary High Normal or Low Tertiary High High Non-Parathyroid Hypercalcemia Low or Low Normal High Blood Structure of peripheral vein / Unknown 06/05/2023 11:53 AM EDT 06/05/2023 11:02 PM EDT Narrative [facility] - 06/09/2023 5:04 AM EDT FASTING:NO us Anupama Bynum DO LAB BLOOD ORDERABLES Final Resul t [facility] [address], [place] [address], Potential [facility] [address] [place] [address] * (ABNORMAL) Renal Function Panel (06/05/2023 11:53 AM EDT) Glucose 89 65 - 139 mg/dL 06/05/2023 10:49 PM EDT [facility] Comment: Non-fasting reference interval BUN 39(H) 7 - 25 mg/dL 06/05/2023 10:49 PM EDT [facility] Creatinine 2.61(H) 0.50 - 1.03 mg/dL 06/05/2023 10:49 PM EDT [facility] eGFR 21(L) > OR = 60 mL/min/1. 73m2 06/05/2023 10:49 PM EDT [facility] Bun/Creatinine Ratio 15 6 - 22 (calc) 06/05/2023 10:49 PM EDT [facility] Sodium 137 135 - 146 mmol/L 06/05/2023 10:49 PM EDT [facility] Potassium 4.6 3.5 - 5.3 mmol/L 06/05/2023 10:49 PM EDT [facility] Chloride 111(H) 98 - 110 mmol/L 06/05/2023 10:49 PM EDT [facility] Carbon Dioxide 18(L) 20 - 32 mmol/L 06/05/2023 10:49 PM EDT [facility] Calcium 9.8 8.6 - 10.4 mg/dL 06/05/2023 10:49 PM EDT [facility] Phosphate 3.5 2.5 - 4.5 mg/dL 06/05/2023 10:49 PM EDT [facility] Albumin 4.0 3.6 - 5.1 g/dL 06/05/2023 10:49 PM EDT [facility] Blood Structure of peripheral vein / Unknown 06/05/2023 11:53 AM EDT 06/05/2023 7:56 PM EDT Narrative [facility] - 06/09/2023 5:04 AM EDT FASTING:NO us Anupama Anthonyleanna DO LAB BLOOD ORDERABLES Final Resul t [facility] [address], [place] [address], [place] [phone] [facility] [address] [place] [address] from Last 3 Months or Most Recently Relevant to Health Maintenance Insurance * Guarantor: Aneta Gan Account Type Relation to Patient Date of Phone Billing Address Personal/Family Self 1965 [phone] (Work) [address] [place] [phone] [facility] [id number] [place] [address] * Guarantor: Aneta Gan Account Type Relation to Patient Date of Phone Billing Address Transplant Self 1965 [phone] (Work) [address] [place] [phone] [facility] Advance Directives Documents on File Type Date Recorded 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
--- OUTSIDE RECORDS SUMMARY | 2025-02-03 15:53 | XMS_ITS ---
Author Name [facility] Organization Unknown Care Team Organization Name Specialty Phone Email Start Date End Da [facility] JESUSITA MCNULTY Primary Care
--- OUTSIDE RECORDS SUMMARY | 2025-02-03 15:53 | XMS_ITS | Clinical Summary ---
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
--- OUTSIDE RECORDS SUMMARY | 2025-02-03 15:53 | XMS_ITS | Encounter Summary ---
Author Organization [facility] Address [address] [place] [address] Phone Care Team Providers Care Contract Paralegal Name Role Phone Unavailable Primary Care Provider Unavailabl e Encounter Details Date Type Department Care Team (Late st Contact Info) Description 08/10/2022 Telephone [facility] [address] [place] [address] Roe Morrissey MD Social History [...] Iris Gee - 08/10/2022 10:19 AM EST [facility] insurance verification called, pt will need a PA for her truxima infusion that is scheduled for tomorrow. This will need to go through [facility]. documented in this encounter Plan of [...] EDT) Calcium 9.1 8.4 - 10.2 mg/dL [place] 11/06/2022 4:20 PM EDT 11/06/2022 4:20 PM EDT Roe Morrissey MD LAB BLOOD ORDERABLES Final Res ult [place] * (ABNORMAL) Creatinine (11/06/2022 4:20 PM EDT) Creatinine Serum 2.59(H) 0.5 - 1.4 mg/dL [facility] eGFR (Calc) 19 [facility] Comment: NOTE: For -[place] individuals, multiply the result by 1.210. Chronic Kidney Disease: Estimated GFR < 60 mL/min/1.73m2 Severe Kidney Disease: Estimated GFR < 15 mL/min/1.73m2 11/06/2022 4:20 PM EDT 11/06/2022 4:20 PM EDT Roe Morrissey MD LAB BLOOD ORDERABLES Final Res ult Performing Organization Address City/[facility]/ZIP Co de Phone Number [place] * (ABNORMAL) BUN (11/06/2022 4:20 PM EDT) BUN 44(H) 9 - 16 mg/dL [place] 11/06/2022 4:20 PM EDT 11/06/2022 4:20 PM EDT Roe Morrissey MD LAB BLOOD ORDERABLES Final Res ult [place] * (ABNORMAL) Electrolyte panel (11/06/2022 4:20 PM [...]
== END 2025-02-03 15:44 | disposition home or self-care (01) ==
LOC: HO.ACS 14:58
PROVIDERS: PCP Physician Assistant; Visit Provider Internal Medicine Medical Oncology
DX: Z79.01 Long term (current) use of anticoagulants (principal)

== ENCOUNTER → 2025-02-03 14:58 | Outpatient (BNVA) | payer OTHER, MEDICAID, SELFPAY | PROVIDERS: PCP Physician Assistant; Visit Provider Internal Medicine Medical Oncology | DX: Z79.01 Long term (current) use of anticoagulants (principal) | CPT/HCPCS: 85610; 99211 ==

== ENCOUNTER 2025-02-12 15:44 | Outpatient (REF) | payer OTHER, MEDICAID, SELFPAY ==
--- OUTSIDE RECORDS SUMMARY | 2025-02-12 15:55 | XMS_ITS | Clinical Summary ---
Author Organization [facility] Address [address] [place] [address] Care Team Providers Care Roll Weigher Name Role Phone Franklin Sanchez Primary Care [...] Influenza Vaccine 03/06/2025 [place] [address] [facility] Care Teams Roll Weigher Relationship Specialty Start Date End Date Franklin Sanchez PA [facility] [place] [address] PCP - General Adult Health - PA/APNP/EMPLOYEE COMMUNICATIONS MANAGER/NOISE TESTER 07/20/21
--- OUTSIDE RECORDS SUMMARY | 2025-02-12 15:55 | XMS_ITS | Clinical Summary ---
Author Organization [facility] Address [address] [place] [address] Care Team Providers Care Security Systems Engineer Name Role Phone Franklin Sanchez Primary Care Provider [phone] Allergies Active Allergy Reactions Criticality Noted Date [...] propionate (FLONASE) 50 mcg/actuation nasal spray [facility]ART[facility] [place](s) Both Nares Twice Daily 5 Active sodium bicarbonate 650 mg tablet SMARTSI Tablet(s) By Mouth Twice Daily 5 Active predniSONE (DELTASONE) 2.5 mg tablet 5 Active Active Problems No known active problems Encounters Date Type Department Care Team Description 02/12/2025 Telephone [facility] Transplant Department [address] [place] [address] Zenobia Zepeda, special investigator - Kidney Txp 01/12/2025 Orders Only External Imaging [address] [place] [address] Radiology, External 12/18/2024 Telephone [facility] Transplant Department [address] [place] [address] Zenobia Zepeda, RN 12/12/2024 Telephone [facility] Transplant Department [address] [place] [address] Linh Patel RN 12/12/2024 Documentation [facility] Transplant Department [address] [place] [address] Delores Sepulveda LICSW 12/11/2024 12:00 PM EDT Lab [facility] [place] Lab Draw Site [address] [place] [address] Pre-transplant evaluation for end stage renal disease; Chronic kidney disease, stage IV (severe) ([facility]) 12/11/2024 10:15 AM EDT Office Visit [facility] Renal Transplant [address] [place] [address] Franklin Flowers MD Pre-transplant evaluation for kidney transplant (Primary Dx); Pre-transplant evaluation for end stage renal disease; Stage 5 chronic kidney disease not on chronic dialysis (HCC) 12/11/2024 9:30 AM EDT Social Work [facility] Renal Transplant [address] [place] [address] Delores Sepulveda LICSW 12/11/2024 8:30 AM EDT Evaluation [facility] Renal Transplant [address] [place] [address] Zenobia Zepeda, RN Pre-transplant evaluation for kidney transplant (Primary Dx); ESRD (end stage renal disease) ([facility]) 12/11/2024 8:00 AM EDT Office Visit [facility] Renal Transplant [address] [place] [address] Evon Sierra LPN Pre-transplant evaluation for kidney transplant (Primary Dx) 12/08/2024 Telephone [facility] Transplant Department [address] [place] [address] Zenobia Zepeda, PRIYANK 12/04/2024 Orders Only [facility] Transplant Department [address] [place] [address] Zenobia Zepeda, RN Pre-transplant evaluation for end stage renal disease (Primary Dx); Chronic kidney disease, stage IV (severe) ([facility]) from Last 3 Months Family History Medical [...] Description 12/08/2025 8:20 AM EDT Follow-Up [facility] Renal Transplant [address] [place] [address] Franklin Flowers MD [address] [place] [address] 12/08/2025 9:00 AM EDT Social Work [facility] Renal Transplant [address] [place] [address] Delores Sepulveda, HAIR SAMPLE MATCHER [address] [place] [address] Health Maintenance Due Date Last Done Comments [...] Screening Completed 12/11/2024 Procedures * Due to [place] state [...] IV (severe) (HCC) QUANTIFERON-TB GOLD PLUS, 1 [id number] Routine 12/11/2024 12:08 PM EDT Pre-transplant evaluation for end stage renal disease Chronic kidney disease, stage IV (severe) (HCC) RPR (DIAGNOSIS) W/REFLEX TO TITER & TPPA [id number] Routine 12/11/2024 12:08 PM EDT Pre-transplant evaluation for end stage renal disease Chronic kidney disease, stage IV (severe) (HCC) VARICELLA ZOSTER ANTIBODY, IGG Routine 12/11/2024 12:08 PM EDT Pre-transplant evaluation for end stage renal disease Chronic kidney disease, stage IV (severe) (HCC) HLA TRANSPLANT WORK-UP (ALLELE LEVEL A/B/C/DRB1/JCK847/DQA 1/DQB1/DPA1/DPB1) Routine 12/11/2024 12:08 PM EDT Pre-transplant [...] Resu lt * HLA Transplan Work-Up(Allele Level A/B/C/DRB1/FCE836/DQA1/DQB1/DPA1/DPB1) (12/11/2024 12:08 PM EDT) Pathologist [facility] Histocompatibility Laboratory Information See Below 12/16/2024 4:30 PM EDT [facility] Comment: SUNI: [id number] Director: Hussein Olivo MD. [facility] PFI: [id number] UNOS: [id number] This test was [...] DATA NOT REPORTED 12/16/2024 4:30 PM EDT [facility] Blood Structure of peripheral vein / Unknown Venipuncture / Unknown 12/11/2024 12:08 PM EDT 12/11/2024 12:22 PM EDT us Franklin Flowers MD HLA LAB ORDERABLES Edited Result - Final [facility] [address] Rm: [id number] [place] [address], * MMR Panel, IgG (12/11/2024 12:08 PM EDT) Measles Antibody (IgG), Immune Status >300.00 AU/mL 12/11/2024 9:31 PM EDT [employer] Comment: AU/mL Interpretation ----- <13.50 Not consistent with immunity 13.50-16.49 Equivocal >16.49 Consistent with immunity The presence of measles IgG suggests immunization or past or current infection with measles virus. For additional information, please refer to http://education.Emerging Tigers/faq/UWB914 (This link is being provided for informational/ educational purposes only.) Mumps Antibody (IgG), Immune Status 114.00 AU/mL 12/11/2024 9:31 PM EDT [employer] Comment: AU/mL Interpretation ------- <9.00 Not consistent with immunity 9.00-10.99 Equivocal >10.99 Consistent with immunity The presence of mumps IgG antibody suggests immunization or past or current infection with mumps virus. Rubella Antibody (IgG), Immune Status 20.40 Index 12/11/2024 9:31 PM EDT [employer] Comment: Index Interpretation ----- <0.90 Not consistent with immunity 0.90-0.99 Equivocal > or = 1.00 Consistent with immunity The presence of rubella IgG antibody suggests immunization or past or current infection with rubella virus. Blood Structure of peripheral vein / Unknown Venipuncture / Unknown 12/11/2024 12:08 PM EDT 12/11/2024 12:23 PM EDT Narrative [facility] - 12/11/2024 9:31 PM EDT [facility] Received Date: Franklin Flowers MD LAB BLOOD ORDERABLES [place] bartholomew Result [facility] 200 [facility] 3rd Floor, [place] [address], [employer] [facility] [address], [place] [address], * (ABNORMAL) Herpes Simplex Virus 1&2, IgG (12/11/2024 12:08 PM EDT) [facility] HSV 1 IgG Type Specific Ab 44.60(H) index 12/12/2024 4:21 AM EDT [employer] [facility] HSV 2 IgG Type Specific Ab 14.90(H) index 12/12/2024 4:21 AM EDT [employer] [facility] Comment: Index Interpretation ----- <0.90 Negative [...] screening. For additional information, please refer to http://education.Emerging Tigers/faq/KQQ434 (This link is being provided for informational/ educational purposes only.) Blood Structure of peripheral vein / Unknown Venipuncture / Unknown 12/11/2024 12:08 PM EDT 12/11/2024 12:24 PM EDT Narrative [facility] - 12/12/2024 4:21 AM EDT [facility] Received Date: Franklin Flowers MD LAB BLOOD ORDERABLES [place] l Result Performing Organization Address City/[facility]/ZIP Co de Phone Number [facility] [address], [place] [address], [place] [phone] [employer] [facility] [address], [place] [address], [place] [phone] * RPR (Diagnosis) w/Reflex to Titer & TPPA Confirm (12/11/2024 12:08 PM EDT) RPR W/Refl Titer NON-REACT MARSHALL NON-REACT MARSHALL 12/12/2024 11:54 AM EDT [employer] [facility] Blood Structure of peripheral vein / Unknown Venipuncture / Unknown 12/11/2024 12:08 PM EDT 12/11/2024 12:24 PM EDT Narrative [facility] 12/12/2024 11:54 AM EDT [facility] Received Date:[id number] Franklin Flowers MD LAB BLOOD ORDERABLES [place] l Result Performing Organization Address City/[facility]/ZIP Co de Phone Number [facility] 200 [facility] 3rd [facility], [place] [address], [place] [phone] [employer] [facility] [address], [place] [address], [place] [phone] * QuantiFERON-TB Gold Plus, 1 Tube (12/11/2024 12:08 PM EDT) QuantiFERON-TB Gold Plus NEGATIVE NEGATIVE 12/14/2024 2:16 AM EDT [employer] [facility] Comment: Negative test result. M. tuberculosis complex infection unlikely. NIL 0.03 IU/mL 12/14/2024 2:16 AM EDT [employer] [facility] Mitogen-NIL 9.50 IU/mL 12/14/2024 2:16 AM EDT [employer] [facility] TB1-NIL 0.02 IU/mL 12/14/2024 2:16 AM EDT [employer] [facility] TB2-NIL 0.01 IU/mL 12/14/2024 2:16 AM EDT [employer] [facility] Comment: The Nil tube value reflects [...] T-lymphocytes. For additional information, please refer to https://education.Virally/faq/RXA295 (This link is being provided for informational/ educational purposes only.) Blood Structure of peripheral vein / Unknown Venipuncture / Unknown 12/11/2024 12:08 PM EDT 12/11/2024 12:22 PM EDT Narrative [facility] - 12/14/2024 2:16 AM EDT [facility] Received Date: Franklin Flowers MD LAB BLOOD ORDERABLES [place] l Result [facility] [address] [facility] 3rd Floor, [place] [address], [place] [phone] [employer] [facility] 200 [facility] 3rd Floor, [place] [address], * (ABNORMAL) CBC Auto Differential (12/11/2024 12:08 PM EDT) [facility] WBC 6.6 3.8 - 10.8 10*3/uL 12/11/2024 12:32 PM EDT [facility] RBC 3.52(L) 3.80 - 5.10 10*6/uL 12/11/2024 12:32 PM EDT [facility] Hemoglobin 10.4(L) 11.7 - 15.5 g/dL 12/11/2024 12:32 PM EDT [facility] Hematocrit 33.1(L) 35.0 - 45.0 % 12/11/2024 12:32 PM EDT [facility] MCV 94.0 80.0 - 100.0 fL 12/11/2024 12:32 PM EDT [facility] MCH 29.5 27.0 - 33.0 pg 12/11/2024 12:32 PM EDT [employer] [facility] MCHC 31.4(L) 32.0 - 36.0 g/dL 12/11/2024 12:32 PM EDT [facility] RDW 13.3 11.0 - 15.0 % 12/11/2024 12:32 PM EDT [facility] Platelets 289 140 - 400 10*3/uL 12/11/2024 12:32 PM EDT [facility] MPV 10.4 7.5 - 12.5 fL 12/11/2024 12:32 PM EDT [facility] Neutrophil % 58.9 % 12/11/2024 12:32 PM EDT [facility] Immature Grans % 0.5 0.0 - 0.9 % 12/11/2024 12:32 PM EDT [facility] Lymphocyte % 30.5 % 12/11/2024 12:32 PM EDT [facility] Monocyte % 5.8 % 12/11/2024 12:32 PM EDT [facility] Eosinophil % 3.8 % 12/11/2024 12:32 PM EDT [facility] Basophil % 0.5 % 12/11/2024 12:32 PM EDT [facility] Neutrophil # 3.86 1.50 - 7.80 10*3/uL 12/11/2024 12:32 PM EDT [facility] Immature Grans # 0.03 <=0.03 10*3/uL 12/11/2024 12:32 PM EDT [facility] Lymphocyte # 2.00 0.85 - 3.90 10*3/uL 12/11/2024 12:32 PM EDT [facility] Monocyte # 0.40 0.20 - 0.95 10*3/uL 12/11/2024 12:32 PM EDT [facility] Eosinophil # 0.30 0.02 - 0.50 10*3/uL 12/11/2024 12:32 PM EDT [facility] Basophil # <0.03 0.00 - 0.20 10*3/uL 12/11/2024 12:32 PM EDT [employer] PATHOLOGY LABOR[facility]ORY nRBC % 0.0 /100 WBCs 12/11/2024 12:32 PM EDT [facility] nRBC # <0.01 <0.01 10*3/uL 12/11/2024 12:32 PM EDT [facility] Blood Structure of peripheral vein / Unknown Venipuncture / Unknown 12/11/2024 12:08 PM EDT 12/11/2024 12:24 PM EDT us Franklin Flowers MD LAB BLOOD ORDERABLES [place] bartholomew Result [facility] LAB[facility] [address] [place] [address], * (ABNORMAL) Timo-Lee Virus VCA Antibody Panel (12/11/2024 12:08 PM EDT) EBV Viral Capsid Ag Ab (IGM) <36.00 U/mL 12/12/2024 4:[address] [facility] Comment: U/mL Interpretation ---- <36.00 Negative 36.00-43.99 Equivocal >43.99 Positive EBV Viral Capsid Ag Ab (IGG) 386.00(H) U/mL 12/12/2024 4:[address] [facility] Comment: U/mL Interpretation ---- <18.00 Negative 18.00-21.99 Equivocal >21.99 Positive EBV Nuclear Ag Ab >600.00(H) U/mL 025 4:[address] [facility] Comment: U/mL Interpretation ---- <18.00 Negative 18.00-21.99 Equivocal >21.99 Positive Interpretation: See Comments 12/12/2024 4:[address] [facility] Comment: Suggestive of a past Timo-Lee virus infection. In infants, a similar pattern may occur as a result of passive maternal transfer of antibody. Blood Structure of peripheral vein / Unknown Venipuncture / Unknown 12/11/2024 12:08 PM EDT 12/11/2024 12:23 PM EDT Narrative [facility] - 12/12/2024 4:20 AM EDT [facility] Received Date: Franklin Flowers MD LAB BLOOD ORDERABLES [place] bartholomew Result [facility] 200 [facility] 3rd Floor, [place] [address], [place] [phone] [employer] [facility] 200 [facility] 3rd Floor, [place] [address], * Hepatitis C Antibody w/Reflex to PCR (12/11/2024 12:08 PM EDT) [facility] Hepatitis C Antibody NON-REACT MARSHALL NON-REACT MARSHALL 12/12/2024 6:[address] [facility] Comment: HCV antibody was non-reactive. There is no laboratory evidence of HCV infection. In most cases, no further action is required. However, if recent HCV exposure is suspected, a test for HCV RNA (test code 15008) is suggested. For additional information please refer to http://Ultius.Virally/faq/AJH14c0 (This link is being provided for informational/ educational purposes only.) Blood Structure of peripheral vein / Unknown Venipuncture / Unknown 12/11/2024 12:08 PM EDT 12/11/2024 12:23 PM EDT [employer] [facility] - 12/12/2024 6:33 AM EDT [facility] Received Date: Franklin Flowers MD LAB BLOOD ORDERABLES [place] l Result [facility] [address] [facility] 3rd Floor, [place] [address], [facility] [address], [place] [address], * (ABNORMAL) Hepatitis A Antibody, Total (12/11/2024 12:08 PM EDT) Hepatitis A Ab, Total REACTIVE( A) NON-REACT MARSHALL 12/12/2024 5:[address] [facility] Comment: For additional information, please refer to http://Ultius.Virally/faq/ZZE605 (This link is being provided for informational/ educational purposes only.) Blood Structure of peripheral vein / Unknown Venipuncture / Unknown 12/11/2024 12:08 PM EDT 12/11/2024 12:23 PM EDT Ricky [facility] - 12/12/2024 5:23 AM EDT [facility] Received Date: Franklin Flowers MD LAB BLOOD ORDERABLES [place] l Result [facility] [address], [place] [address], [employer] [facility] [address], [place] [address], [place] [phone] * Hepatitis B Core Antibody, Total (12/11/2024 12:08 PM EDT) Hepatitis B Core Ab Total NON-REACT MARSHALL NON-REACT MARSHALL 12/11/2024 9:[address] [facility] Comment: For additional information, please refer to http://education.Virally/faq/TNF578 (This link is being provided for informational/ educational purposes only.) Blood Structure of peripheral vein / Unknown Venipuncture / Unknown 12/11/2024 12:08 PM EDT 12/11/2024 12:24 PM EDT [facility] 12/11/2024 9:08 PM EDT [facility] Received Date:[id number] Franklin Flowers MD LAB BLOOD ORDERABLES [place] l Result [facility] [address], [place] [address], [place] [phone] [employer] [facility] [address], [place] [address], [place] [phone] * ABO/Rh Blood Type (12/11/2024 12:08 PM EDT) ABO Blood Type AB 12/11/2024 1:50 PM EDT [facility] RH Type Positive 12/11/2024 1:50 PM EDT [facility] Blood Structure of peripheral vein / Unknown Venipuncture / Unknown 12/11/2024 12:08 PM EDT 12/11/2024 1:04 PM EDT us Franklin Flowers MD LAB BLOOD BANK TEST ORDER HENRY Final Result BLOOD BANK INF[address] [address], * (ABNORMAL) Hepatitis B Surface Antibody (12/11/2024 12:08 PM EDT) Hepatitis B Surface Ab Immunity, Qn <5(L) > OR = 10 mIU/mL 12/12/2024 4:[address] [facility] Comment: PATIENT DOES NOT HAVE IMMUNITY TO HEPATITIS B VIRUS. For additional information, please refer to http://Ultius.Virally/faq/FAV490 (This link is being provided for informational/ educational purposes only). Blood Structure of peripheral vein / Unknown Venipuncture / Unknown 12/11/2024 12:08 PM EDT 12/11/2024 12:23 PM EDT Narrative [facility] - 12/12/2024 4:47 AM EDT [facility] Received Date:[id number] Franklin Flowers MD LAB BLOOD ORDERABLES [place] l Result [facility] [place] [address] [facility] 3rd Floor, [place] [address], [place] [phone] [employer] [facility] 200 [facility] 3rd Floor, [place] [address], [place] [phone] * Hepatitis B Surface Antigen w/Confirmation (12/11/2024 12:08 PM EDT) Hepatitis B Surface Antigen NON-REACT MARSHALL NON-REACT MARSHALL 12/11/2024 9:[address] [facility] Comment: For additional information, please refer to http://Ultius.Virally/faq/TXN243 (This link is being provided for informational/ educational purposes only.) Blood Structure of peripheral vein / Unknown Venipuncture / Unknown 12/11/2024 12:08 PM EDT 12/11/2024 12:23 PM EDT Narrative [employer] [place] - 12/11/2024 9:08 PM EDT [facility] Received Date: Franklin Flowers MD LAB BLOOD ORDERABLES [place] l Result Performing Organization Address City/[facility]/ZIP Co de Phone Number LULA [place] [address], [place] [address], [place] [phone] [employer] [facility] [address], [place] [address], * (ABNORMAL) Cytomegalovirus Antibody, IgG (12/11/2024 12:08 PM EDT) [facility] Cytomegalovirus Antibody (IgG) >10.00(H ) U/mL 12/11/2024 9:30 PM EDT [employer] [facility] Comment: U/mL Interpretation ----- <0.60 Negative 0.60-0.69 Equivocal > or = 0.70 Positive A positive result indicates that the patient has antibody to CMV. It does not differentiate between an active or past infection. Blood Structure of peripheral vein / Unknown Venipuncture / Unknown 12/11/2024 12:08 PM EDT 12/11/2024 12:23 PM EDT Narrative [facility] [place] - 12/11/2024 9:30 PM EDT [facility] Received Date: Franklin Flowers MD LAB BLOOD ORDERABLES [place] l Result Performing Organization Address City/[facility]/ZIP Co de Phone Number [facility] 200 [facility] 3rd [facility], [place] [address], [place] [phone] [employer] [facility] [address], [place] [address], [place] [phone] * (ABNORMAL) PTT (12/11/2024 12:08 PM EDT) aPTT 36.4(H) 23.0 - 32.0 Seconds 12/11/2024 12:48 PM EDT [facility] Comment: Current PTT reagent is not sensitive to detect all Lupus Anticoagulant (LA) Inhibitor Cases. If a LA is suspected, please order a Lupus Anticoagulation w/ Reflex Test which is performed at [facility] in [place], [place]. Blood Structure of peripheral vein / Unknown Venipuncture / Unknown 12/11/2024 12:08 PM EDT 12/11/2024 12:24 PM EDT Franklin Flowers MD LAB BLOOD ORDERABLES [place] l Result Performing Organization Address [facility] Co de Phone Number [facility] PATH[facility] LABORATORY [address] [place] [address], * (ABNORMAL) Protime-INR (12/11/2024 12:08 PM EDT) PT 23.5(H) 9.6 - 12.4 Seconds 12/11/2024 12:48 PM EDT [facility] LAB[facility] INR 2.3 0.9 - 1.1 12/11/2024 12:48 PM EDT [facility] Comment:The optimal therapeu tic INR range for patients treated with Vitamin K antagonists (VKAS, e.g., Warfarin) is 2.0 to 3.5. Discuss the desired range with your doctor/care team. Blood Structure of peripheral vein / Unknown Venipuncture / Unknown 12/11/2024 12:08 PM EDT 12/11/2024 12:24 PM EDT Franklin Flowers MD LAB BLOOD ORDERABLES [place] l Result Performing Organization Address City/[facility]/ZIP Co de Phone Number [facility] LAB[facility] [address] [place] [address], * Varicella Zoster Antibody, IgG (12/11/2024 12:08 PM EDT) Varicella Zoster Virus Antibody 32.50 S/CO 12/12/2024 4:28 AM EDT [employer] [facility] Comment: Signal to Cut-off S/CO Interpretation [...] PM EDT 12/11/2024 12:24 PM EDT Narrative [facility] - 12/12/2024 4:28 AM EDT [facility] Received Date: Franklin Flowers MD LAB BLOOD ORDERABLES [place] l Result LULA [address], [place] [address], [place] [phone] [employer] [address], [place] [address], [place] [phone] * (ABNORMAL) BUN (12/11/2024 12:08 PM EDT) BUN 41(H) 7 - 23 mg/dL 12/11/2024 12:59 PM EDT [employer] [facility] Blood Structure of peripheral vein / Unknown Venipuncture / Unknown 12/11/2024 12:08 PM EDT 12/11/2024 12:26 PM EDT Franklin Flowers MD LAB BLOOD ORDERABLES [place] l Result Performing Organization Address City/[facility]/ZIP Co de Phone Number [employer] [facility] [address] [place] [address], [place] * ALT (12/11/2024 12:08 PM EDT) ALT 20 10 - 40 U/L 12/11/2024 12:59 PM EDT [employer] [facility] Blood Structure of peripheral vein / Unknown Venipuncture / Unknown 12/11/2024 12:08 PM EDT 12/11/2024 12:26 PM EDT Franklin Flowers MD LAB BLOOD ORDERABLES [place] l Result Performing Organization Address [facility] Co de Phone Number [employer] [facility] [address] [place] [address], [place] * AST (12/11/2024 12:08 PM EDT) AST 30 10 - 40 U/L 12/11/2024 12:59 PM EDT [employer] [facility] Blood Structure of peripheral vein / Unknown Venipuncture / Unknown 12/11/2024 12:08 PM EDT 12/11/2024 12:26 PM EDT Franklin Flowers MD LAB BLOOD ORDERABLES [place] l Result Performing Organization Address City/[facility]/ZIP Co de Phone Number [employer] [facility] [address] [place] [address], [place] * Phosphorus (12/11/2024 12:08 PM EDT) Phosphorus 3.4 2.5 - 4.5 mg/dL 12/11/2024 12:59 PM EDT [employer] [facility] Blood Structure of peripheral vein / Unknown Venipuncture / Unknown 12/11/2024 12:08 PM EDT 12/11/2024 12:26 PM EDT Franklin Flowers MD LAB BLOOD ORDERABLES [place] Result Performing Organization Address City/[facility]/ZIP Co de Phone Number [facility] CLINICAL PATHOLOGY LABORATORY [address] [place] [address], * (ABNORMAL) Creatinine (12/11/2024 12:08 PM EDT) Creatinine 3.06(H) 0.50 - 1.20 mg/dL 12/11/2024 12:59 PM EDT [facility] CLINICAL PATHOLOG[facility] LABORATORY eGFR 17(L) >=60 mL/min/1 .73m2 12/11/2024 12:59 PM EDT [facility] [facility] PATH[facility] LABORAT[facility] Comment:The estimated glomer ular [...] MD LAB BLOOD ORDERABLES [place] Result [facility] CLINICAL PATHOLOGY LABORATORY [address] [place] [address], [place] * (ABNORMAL) Calcium (12/11/2024 12:08 PM EDT) Calcium 10.7(H) 8.6 - 10.5 mg/dL 12/11/2024 12:59 PM EDT [facility] [employer] CL[facility] PATHOLOGY LABORATORY Blood Structure of peripheral vein / Unknown Venipuncture / Unknown 12/11/2024 12:08 PM EDT 12/11/2024 12:26 PM EDT Franklin Flowers MD LAB BLOOD ORDERABLES [place] Result [facility] [address] [place] [address], [place] * Bilirubin, Direct (12/11/2024 12:08 PM EDT) Bilirubin, Direct 0.2 <=0.4 mg/dL 12/11/2024 12:59 PM EDT [employer] LAB[facility] Blood Structure of peripheral vein / Unknown Venipuncture / Unknown 12/11/2024 12:08 PM EDT 12/11/2024 12:26 PM EDT Franklin Flowers MD LAB BLOOD ORDERABLES [place] Result Performing Organization Address [facility]/ZIP Co de Phone Number [facility] [address] [place] [address], [place] * Bilirubin, Total (12/11/2024 12:08 PM EDT) Bilirubin, Total 0.5 0.2 - 1.2 mg/dL 12/11/2024 12:59 PM EDT [facility] Blood Structure of peripheral vein / Unknown Venipuncture / Unknown 12/11/2024 12:08 PM EDT 12/11/2024 12:26 PM EDT Franklin Flowers MD LAB BLOOD ORDERABLES [place] Result [facility] [address] [place] [address], [place] * Albumin (12/11/2024 12:08 PM EDT) Albumin 4.2 3.5 - 5.2 g/dL 12/11/2024 12:59 PM EDT [facility] Blood Structure of peripheral vein / Unknown Venipuncture / Unknown 12/11/2024 12:08 PM EDT 12/11/2024 12:26 PM EDT Franklin Flowers MD LAB BLOOD ORDERABLES [place] Result [facility] [address] [place] [address], [place] * (ABNORMAL) Microalbumin, Random Urine with Creatinine (08/07/2023 9:01 AM EST) Creatinine, Random Urine 92 20 - 275 mg/dL 08/08/2023 6:45 PM EST [employer] [facility] Microalbumin 150.8 mg/dL 08/08/2023 6:45 PM EST [employer] [facility] Comment: Verified by repeat analysis. Reference Range Not established Microalbumin/Crea tinine Ratio, Random Urine 1,639(H) <30 mcg/mg creat 08/08/2023 6:45 PM EST [employer] [facility] Comment: The ADA defines abnormalities in [...] Final Resul t [facility] [address] [facility] 3rd Floor, [place] [address], [place] [phone] [employer] [facility] [address] [place] [address] * (ABNORMAL) Vitamin D, 25-Hydroxy, Total, Immunoassay (06/05/2023 11:53 AM EDT) Calcidiol+ercalc idiol 22(L) 30 - 100 ng/mL 06/05/2023 9:[address] [facility] Comment: Vitamin D Status 25-OH Vitamin D: Deficiency: <20 ng/mL Insufficiency: 20 - 29 ng/mL Optimal: > or = 30 ng/mL For 25-OH Vitamin D testing on patients on D2-supplementation and patients for whom quantitation of D2 and D3 fractions is required, the QuestAssureD(TM) 25-OH VIT D, (D2,D3), LC/MS/MS is recommended: order code 05865 (patients >2yrs). See Note 1 Note 1 For additional information, please refer to http://education.[employer]/faq/FWY944 (This link is being provided for informational/ educational purposes only.) Blood Structure of peripheral vein / Unknown 06/05/2023 11:53 AM EDT 06/05/2023 7:56 PM EDT Narrative [facility] - 06/09/2023 5:04 AM EDT FASTING:NO us Anupama Bynum DO LAB BLOOD ORDERABLES Final Resul t [facility] [address] [facility] [address], [place] [address], [facility] [address] [place] [address] * (ABNORMAL) PTH, Intact (without Calcium) (06/05/2023 11:53 AM EDT) Pathologist [facility] Parathyroid Hormone, Intact 205(H) 16 - 77 pg/mL 06/06/2023 1:[address] [facility] Comment: Interpretive Guide Intact PTH Calcium [...] Final Resul t [facility] [address] [facility] [address], [place] [address], [facility] [address] [place] [address] * (ABNORMAL) Renal Function Panel (06/05/2023 11:53 AM EDT) Pathologist [facility] Glucose 89 65 - 139 mg/dL 06/05/2023 10:[address] [facility] Comment: Non-fasting reference interval BUN 39(H) 7 - 25 mg/dL 06/05/2023 10:49 PM EDT [employer] [facility] Creatinine 2.61(H) 0.50 - 1.03 mg/dL 06/05/2023 10:49 PM EDT [employer] [facility] eGFR 21(L) > OR = 60 mL/min/1. 73m2 06/05/2023 10:49 PM EDT [employer] [facility] Bun/Creatinine Ratio 15 6 - 22 (calc) 06/05/2023 10:49 PM EDT [employer] [facility] Sodium 137 135 - 146 mmol/L 06/05/2023 10:49 PM EDT [employer] [facility] Potassium 4.6 3.5 - 5.3 mmol/L 06/05/2023 10:49 PM [facility] Chloride 111(H) 98 - 110 mmol/L 06/05/2023 10:49 PM EDT [employer] [facility] Carbon Dioxide 18(L) 20 - 32 mmol/L 06/05/2023 10:49 PM [facility] Calcium 9.8 8.6 - 10.4 mg/dL 06/05/2023 10:49 PM [facility] Phosphate 3.5 2.5 - 4.5 mg/dL 06/05/2023 10:49 PM EDT [employer] [facility] Albumin 4.0 3.6 - 5.1 g/dL 06/05/2023 10:[address] [facility] Blood Structure of peripheral vein / Unknown 06/05/2023 11:53 AM EDT 06/05/2023 7:56 PM EDT Narrative [facility] - 06/09/2023 5:04 AM EDT FASTING:NO us Anupama Bynum DO LAB BLOOD ORDERABLES Final Resul t [facility] [address] [facility] [address]rd [address], [place] [address], [place] [phone] [employer] [facility] [address] [place] [address] from Last 3 Months or Most Recently Relevant to Health Maintenance Insurance * Guarantor: Aneta Gan Account Type Relation to Patient Date of Phone Billing Address Personal/Family Self 1965 [phone] (Work) [address] [place] [address] [facility] Member Subscriber Plan / Payer (Ef fective 2018-Present) Name:Gan, Aneta Relation to Subscriber:Self Name:Gan, Aneta Payer ID:[id number] Type:HMO Address: [facility], [address] [place] [address] * Guarantor: Aneta Gan Account Type Relation to Patient Date of Phone Billing Address Transplant Self 1965 [phone] (Work) [address] [place] [address] [facility] Member Subscriber Plan / Payer (Ef fective 2018-Present) Name:Aneta Gan Relation to Subscriber:Self Name:Aneta Gan Payer ID:[id number] Type:HMO Address: [facility], [address] [place] [id number] [address] Advance Directives Documents on File Type Date Recorded Patient Medical Assisting Instructor Expl [facility] Care Proxy 12/25/2024 8:48 AM 12/11 Care Teams Security Systems Engineer Relationship Specialty Start Date End Date Franklin Sanchez PA [address] [place] [address] [phone] PCP - General 06/05/23
--- OUTSIDE RECORDS SUMMARY | 2025-02-12 15:55 | XMS_ITS | Encounter Summary ---
Author Organization [facility] Address [address] [place] [address] Phone Care Team Providers Care Gas Fitter Name Role Phone Unavailable Primary Care Provider Unavailabl e Encounter Details Date Type Department Care Team (Late st Contact Info) Description 08/10/2022 Telephone [facility] [address] [place] [address] Roe Morrissey MD Social History [...] Gee - 08/10/2022 10:19 AM EST [facility] insurance verification called, pt will need a PA for her truxima infusion that is scheduled for tomorrow. This will need to go through [facility]. documented in this encounter Plan of [...] EDT) Calcium 9.1 8.4 - 10.2 mg/dL [place] 11/06/2022 4:20 PM EDT 11/06/2022 4:20 PM EDT Roe Morrissey MD LAB BLOOD ORDERABLES Final Res ult [place] * (ABNORMAL) Creatinine (11/06/2022 4:20 PM EDT) Creatinine Serum 2.59(H) 0.5 - 1.4 mg/dL [facility] eGFR (Calc) 19 [facility] Comment: NOTE: For -[place] individuals, multiply the result by 1.210. Chronic Kidney Disease: Estimated GFR < 60 mL/min/1.73m2 Severe Kidney Disease: Estimated GFR < 15 mL/min/1.73m2 11/06/2022 4:20 PM EDT 11/06/2022 4:20 PM EDT Roe Morrissey MD LAB BLOOD ORDERABLES Final Res ult Performing Organization Address City/[facility]/ZIP Co de Phone Number [place] * (ABNORMAL) BUN (11/06/2022 4:20 PM EDT) BUN 44(H) 9 - 16 mg/dL [place] 11/06/2022 4:20 PM EDT 11/06/2022 4:20 PM [...]
== END 2025-02-12 15:45 | disposition home or self-care (01) ==
LOC: HO.LAB 15:44
PROVIDERS: PCP Physician Assistant; Visit Provider Internal Medicine Nephrology
DX: Z01.818 Encounter for other preprocedural examination (principal); N18.4 Chronic kidney disease, stage 4 (severe)
CPT/HCPCS: 86900; 86901

== ENCOUNTER 2025-02-25 14:23 | Outpatient (REF) | payer OTHER, MEDICAID, SELFPAY ==
--- OUTSIDE RECORDS SUMMARY | 2025-02-25 15:02 | XMS_ITS | Clinical Summary ---
Author Organization [facility] Address [address] [place] [address] Care Team Providers Care Baker Pie Name Role Phone Franklin Sanchez Primary Care Provider [phone] Allergies Active Allergy Reactions Criticality Noted Date [...] propionate (FLONASE) 50 mcg/actuation nasal spray SMART[facility] [place](s) Both Nares Twice Daily 5 Active sodium bicarbonate 650 mg tablet SMARTSI Tablet(s) By Mouth Twice Daily 5 Active predniSONE (DELTASONE) 2.5 mg tablet 5 Active Active Problems No known active problems Encounters Date Type Department Care Team Description 02/18/2025 Orders Only [facility] Transplant Department [address] [place] [address] Zenobia Zepeda, RN Pre-transplant evaluation for end stage renal disease (Primary Dx); Chronic kidney disease, stage IV (severe) (HCC) 02/18/2025 Documentation [facility] Transplant Department [address] [place] [address] Seema Arredondo, PRIYANK ABO Dual Validation 02/18/2025 Orders Only [facility] Transplant Department [address] [place] [address] Zenobia Zepeda, RN 02/12/2025 Telephone [facility] Transplant Department [address] [place] [address] Zenobia Zepeda, security assurance specialist - Kidney Txp 01/12/2025 Orders Only External Imaging [address] [place] [address] Radiology, External 01/12/2025 Orders Only External Imaging [address] [place] [address] Radiology, External 12/18/2024 Telephone [facility] Transplant Department [address] [place] [address] Zenobia Zepeda, RN 12/12/2024 Telephone [facility] Transplant Department [address] [place] [address] Linh Patel RN 12/12/2024 Documentation [facility] Transplant Department [address] [place] [address] Delores Sepulveda LICSW 12/11/2024 12:00 PM EDT Lab [facility] [place] Lab Draw Site [address] [place] [address] Pre-transplant evaluation for end stage renal disease; Chronic kidney disease, stage IV (severe) (HCC) 12/11/2024 10:15 AM EDT Office Visit [facility] Renal Transplant [address] [place] [address] Franklin Flowers MD Pre-transplant evaluation for kidney transplant (Primary Dx); Pre-transplant evaluation for end stage renal disease; Stage 5 chronic kidney disease not on chronic dialysis (HCC) 12/11/2024 9:30 AM EDT Social Work [facility] Renal Transplant [address] [place] [address] Delores Sepulveda LICSW 12/11/2024 8:30 AM EDT Evaluation [facility] Renal Transplant [address] [place] [address] Zenobia Zepeda, PRIYANK Pre-transplant evaluation for kidney transplant (Primary Dx); ESRD (end stage renal disease) (HCC) 12/11/2024 8:00 AM EDT Office Visit [facility] Renal Transplant [address] [place] [address] Evon Sierra LPN Pre-transplant evaluation for kidney transplant (Primary Dx) 12/08/2024 Telephone [facility] Transplant Department [address] [place] [address] Zenobia Zepeda RN 12/04/2024 Orders Only [facility] Transplant Department [address] [place] [address] Zenobia Zepeda, PRIYANK Pre-transplant evaluation for end stage renal disease (Primary Dx); Chronic kidney disease, stage IV (severe) ([facility]) from Last 3 Months Family History Medical [...] Info) Description 12/08/2025 8:20 AM EDT Follow-Up [facility] Renal Transplant [address] [place] [address] Franklin Flowers MD [address] [place] [address] 12/08/2025 9:00 AM EDT Social Work [facility] Renal Transplant [address] [place] [address] Delores Sepulveda LICSW [address] [place] [address] Health Maintenance Due Date Last Done Comments [...] Metabolic Panel 09/05/2023 06/05/2023, 023 COVID-19 Vaccine (2023-09 5 season) 2024 10/28/2021, 10/14/2020, 09/16/2020 25 [...] Completed 12/11/2024 Procedures * Due to [place] state law, this organization might not be sharing negative HIV tests. Procedure Name Priority Date/Time Associated Diagnosis Comments TYPE AND SCREEN - TRANSPLANT MANUAL ABSTRACTION Routine 02/12/2025 4:03 PM EDT ECHO OUTSIDE FILMS Routine 01/29/2025 11:36 AM [...] IV (severe) (HCC) QUANTIFERON-TB GOLD PLUS, 1 [id number] Routine 12/11/2024 12:08 PM EDT Pre-transplant evaluation for end stage renal disease Chronic kidney disease, stage IV (severe) (HCC) RPR (DIAGNOSIS) W/REFLEX TO TITER & TPPA [id number] Routine 12/11/2024 12:08 PM EDT Pre-transplant evaluation for end stage renal disease Chronic kidney disease, stage IV (severe) (HCC) VARICELLA ZOSTER ANTIBODY, IGG Routine 12/11/2024 12:08 PM EDT Pre-transplant evaluation for end stage renal disease Chronic kidney disease, stage IV (severe) (HCC) HLA TRANSPLANT WORK-UP (ALLELE LEVEL A/B/C/DRB1/LRI372/DQA 1/DQB1/DPA1/DPB1) Routine 12/11/2024 12:08 PM EDT Pre-transplant [...] Health Maintenance Results * Due to [place] state law, this organization might not be sharing negative HIV tests. * TYPE AND SCREEN - TRANSPLANT MANUAL ABSTRACTION (02/12/2025 4:03 PM EDT) ABO AB [facility] RH Positive [facility] 02/12/2025 4:03 PM EDT us Unknown Provider MD LAB HISTORICAL RESULTS Final Result [facility] [address] [place] [address] * Echo Outside Films (01/29/2025 11:36 AM EDT) Narrative 01/29/2025 11:36 AM EDT This order has been auto-finalized and does not contain a result. us External Radiology CV ECHO PROCEDURES Final Resu lt * HLA Transplan Work-Up(Allele Level A/B/C/DRB1/HMC513/DQA1/DQB1/DPA1/DPB1) (12/11/2024 12:08 PM EDT) Histocompatibility Laboratory Information See Below 12/16/2024 4:30 PM EDT [facility] Comment: SUNI: [id number] Director: Hussein Olivo MD. [facility] PFI: [id number] UNOS: [id number] This test was [...] testing. C*-1 C*04:01 12/16/2024 4:30 PM EDT [facility] C*-2 DATA NOT REPORTED [...] [facility] [address] Rm: [id number] [place] [address], * MMR Panel, IgG (12/11/2024 12:08 PM EDT) Pathologist [facility] Measles Antibody (IgG), Immune Status >300.00 AU/mL 12/11/2024 9:31 PM EDT [facility] Comment: AU/mL Interpretation ----- <13.50 Not consistent with immunity 13.50-16.49 Equivocal >16.49 Consistent with immunity The presence of measles IgG suggests immunization or past or current infection with measles virus. For additional information, please refer to http://Fixstars.MiiPharos/faq/BFH198 (This link is being provided for informational/ educational purposes only.) Mumps Antibody (IgG), Immune Status 114.00 AU/mL 12/11/2024 9:31 PM EDT [facility] Comment: AU/mL Interpretation ------- <9.00 Not consistent with immunity 9.00-10.99 Equivocal >10.99 Consistent with immunity The presence of mumps IgG antibody suggests immunization or past or current infection with mumps virus. Rubella Antibody (IgG), Immune Status 20.40 Index 12/11/2024 9:31 PM EDT [facility] Comment: Index Interpretation ----- <0.90 Not consistent with immunity 0.90-0.99 Equivocal > or = 1.00 Consistent with immunity The presence of rubella IgG antibody suggests immunization or past or current infection with rubella virus. Blood Structure of peripheral vein / Unknown Venipuncture / Unknown 12/11/2024 12:08 PM EDT 12/11/2024 12:23 PM EDT Narrative [facility] - 12/11/2024 9:31 PM EDT [facility] Received Date: us Franklin Flowers MD LAB BLOOD ORDERABLES [place] Result [facility] [address], [place] [address], [facility] [address], [place] [address], * (ABNORMAL) Herpes Simplex Virus 1&2, IgG (12/11/2024 12:08 PM EDT) Pathologist [facility] HSV 1 IgG Type Specific Ab 44.60(H) index 12/12/2024 4:21 AM EDT [facility] HSV 2 IgG Type Specific Ab 14.90(H) index 12/12/2024 4:21 AM EDT [facility] Comment: Index Interpretation ----- <0.90 Negative [...] screening. For additional information, please refer to http://education.MiiPharos/faq/UNW465 (This link is being provided for informational/ educational purposes only.) Blood Structure of peripheral vein / Unknown Venipuncture / Unknown 12/11/2024 12:08 PM EDT 12/11/2024 12:24 PM EDT Narrative [facility] - 12/12/2024 4:21 AM EDT [facility] Received Date:[id number] Franklin Flowers MD LAB BLOOD ORDERABLES [place] Result [facility] [address], [place] [address], [facility] [address], [place] [address], * RPR (Diagnosis) w/Reflex to Titer & TPPA Confirm (12/11/2024 12:08 PM EDT) Pathologist [facility] RPR W/Refl Titer NON-REACT MARSHALL NON-REACT MARSHALL 12/12/2024 11:54 AM EDT [facility] Blood Structure of peripheral vein / Unknown Venipuncture / Unknown 12/11/2024 12:08 PM EDT 12/11/2024 12:24 PM EDT [facility]ative [facility] - 12/12/2024 11:54 AM EDT [facility] Received Date: Franklin Flowers MD LAB BLOOD ORDERABLES [place] Result [facility] 200 [facility] 3rd Floor, [place] [address], [email or web address] 200 [facility] 3rd Floor, [place] [address], * QuantiFERON-TB Gold Plus, 1 Tube (12/11/2024 12:08 PM EDT) [facility] QuantiFERON-TB Gold Plus NEGATIVE NEGATIVE 12/14/2024 2:16 AM EDT [facility] Comment: Negative test result. M. tuberculosis complex infection unlikely. NIL 0.03 IU/mL 12/14/2024 2:16 AM EDT [facility] Mitogen-NIL 9.50 IU/mL 12/14/2024 2:16 AM EDT [facility] TB1-NIL 0.02 IU/mL 12/14/2024 2:16 AM EDT [facility] TB2-NIL 0.01 IU/mL 12/14/2024 2:16 AM EDT [facility] Comment: The Nil tube value reflects the [...] T-lymphocytes. For additional information, please refer to https://education.Reebonz/faq/IYP905 (This link is being provided for informational/ educational purposes only.) Blood Structure of peripheral vein / Unknown Venipuncture / Unknown 12/11/2024 12:08 PM EDT 12/11/2024 12:[address] [facility] - 12/14/2024 2:16 AM EDT [facility] Received Date: Franklin Flowers MD LAB BLOOD ORDERABLES [place] Result [facility] 200 [facility] 3rd Floor, [place] [address], [place] [phone] [facility] 200 [facility] 3rd Floor, [place] [address], [place] [phone] * (ABNORMAL) CBC Auto Differential (12/11/2024 12:08 PM EDT) WBC 6.6 3.8 - 10.8 10*3/uL 12/11/2024 12:32 PM EDT [facility] RBC 3.52(L) 3.80 - 5.10 10*6/uL 12/11/2024 12:32 PM EDT [facility] Hemoglobin 10.4(L) 11.7 - 15.5 g/dL 12/11/2024 12:32 PM EDT [facility] Hematocrit 33.1(L) 35.0 - 45.0 % 12/11/2024 12:32 PM EDT [facility] MCV 94.0 80.0 - 100.0 fL 12/11/2024 12:32 PM EDT [facility] MCH 29.5 27.0 - 33.0 pg 12/11/2024 12:32 PM EDT [facility] MCHC 31.4(L) 32.0 - 36.0 g/dL 12/11/2024 12:32 PM EDT [facility] RDW 13.3 11.0 - 15.0 % 12/11/2024 12:32 PM EDT [facility] Platelets 289 140 - 400 10*3/uL 12/11/2024 12:32 PM EDT [facility] MPV 10.4 7.5 - 12.5 fL 12/11/2024 12:32 PM EDT [facility] Neutrophil % 58.9 % 12/11/2024 12:32 PM EDT [facility] Immature Grans % 0.5 0.0 - 0.9 % 12/11/2024 12:32 PM EDT [facility] Lymphocyte % 30.5 % 12/11/2024 12:32 PM EDT [facility] Monocyte % 5.8 % 12/11/2024 12:32 PM EDT [facility] Eosinophil % 3.8 % 12/11/2024 12:32 PM EDT [facility] Basophil % 0.5 % 12/11/2024 12:32 PM EDT [facility] Neutrophil # 3.86 1.50 - 7.80 10*3/uL 12/11/2024 12:32 PM EDT [facility] Immature Grans # 0.03 <=0.03 10*3/uL 12/11/2024 12:32 PM EDT [facility] Lymphocyte # 2.00 0.85 - 3.90 10*3/uL 12/11/2024 12:32 PM EDT [facility] Monocyte # 0.40 0.20 - 0.95 10*3/uL 12/11/2024 12:32 PM EDT [facility] Eosinophil # 0.30 0.02 - 0.50 10*3/uL 12/11/2024 12:32 PM EDT [facility]FL [facility] Basophil # <0.03 0.00 - 0.20 10*3/uL 12/11/2024 12:32 PM EDT [facility] nRBC % 0.0 /100 WBCs 12/11/2024 12:32 PM EDT [facility] - [facility] now [facility] nRBC # <0.01 <0.01 10*3/uL 12/11/2024 12:32 PM EDT [facility] NetworksFL [facility] Blood Structure of peripheral vein / Unknown Venipuncture / Unknown 12/11/2024 12:08 PM EDT 12/11/2024 12:24 PM EDT us Franklin Flowers MD LAB BLOOD ORDERABLES [place] Result [facility] [address] [place] [address], * (ABNORMAL) Timo-Lee Virus VCA Antibody Panel (12/11/2024 12:08 PM EDT) EBV Viral Capsid Ag Ab (IGM) <36.00 U/mL 12/12/2024 4:20 AM EDT [facility] Comment: U/mL Interpretation ---- <36.00 Negative 36.00-43.99 Equivocal >43.99 Positive EBV Viral Capsid Ag Ab (IGG) 386.00(H) U/mL 12/12/2024 4:20 AM EDT [facility] Comment: U/mL Interpretation ---- <18.00 Negative 18.00-21.99 Equivocal >21.99 Positive EBV Nuclear Ag Ab >600.00(H) U/mL 025 4:20 AM EDT [facility] Comment: U/mL Interpretation ---- <18.00 Negative 18.00-21.99 Equivocal >21.99 Positive Interpretation: See Comments 12/12/2024 4:20 AM EDT [facility] Comment: Suggestive of a past Timo-Lee virus infection. In infants, a similar pattern may occur as a result of passive maternal transfer of antibody. Blood Structure of peripheral vein / Unknown Venipuncture / Unknown 12/11/2024 12:08 PM EDT 12/11/2024 12:23 PM EDT Narrative [facility] - 12/12/2024 4:20 AM EDT [facility] Received Date: Franklin Flowers MD LAB BLOOD ORDERABLES [place] Result [facility] 200 [facility] 3rd Floor, [place] [address], [email or web address] 200 [facility] 3rd Floor, [place] [address], * Hepatitis C Antibody w/Reflex to PCR (12/11/2024 12:08 PM EDT) Hepatitis C Antibody NON-REACT MARSHALL NON-REACT MARSHALL 12/12/2024 6:33 AM EDT [facility] Comment: HCV antibody was non-reactive. There is no laboratory evidence of HCV infection. In most cases, no further action is required. However, if recent HCV exposure is suspected, a test for HCV RNA (test code 68047) is suggested. For additional information please refer to http://education.Reebonz/faq/COJ94a1 (This link is being provided for informational/ educational purposes only.) Blood Structure of peripheral vein / Unknown Venipuncture / Unknown 12/11/2024 12:08 PM EDT 12/11/2024 12:23 PM EDT Narrative [facility] - 12/12/2024 6:33 AM EDT [facility] Received Date: us Franklin Flowers MD LAB BLOOD ORDERABLES [place] Result [facility] [address], [address] [place] [address], [place] [phone] [facility] [address], [place] [address], [place] [phone] * (ABNORMAL) Hepatitis A Antibody, Total (12/11/2024 12:08 PM EDT) Hepatitis A Ab, Total REACTIVE( A) NON-REACT MARSHALL 12/12/2024 5:23 AM EDT [facility] Comment: For additional information, please refer to http://Fixstars.Reebonz/faq/OTK686 (This link is being provided for informational/ educational purposes only.) Blood Structure of peripheral vein / Unknown Venipuncture / Unknown 12/11/2024 12:08 PM EDT 12/11/2024 12:23 PM EDT Narrative [facility] - 12/12/2024 5:23 AM EDT [facility] Received Date:[id number] us Franklin Flowers MD LAB BLOOD ORDERABLES [place] Result [facility] [address], [address] [place] [address], [place] [phone] [facility] [address], [place] [address], [place] [phone] * Hepatitis B Core Antibody, Total (12/11/2024 12:08 PM EDT) Hepatitis B Core Ab Total NON-REACT MARSHALL NON-REACT MARSHALL 12/11/2024 9:[email or web address] [facility] Comment: For additional information, please refer to http://education.Reebonz/faq/YMS532 (This link is being provided for informational/ educational purposes only.) Blood Structure of peripheral vein / Unknown Venipuncture / Unknown 12/11/2024 12:08 PM EDT 12/11/2024 12:24 PM EDT Narrative [facility] - 12/11/2024 9:08 PM EDT [facility] Received Date: Franklin Flowers MD LAB BLOOD ORDERABLES [place] l Result [facility] 200 [facility] 3rd Floor, [place] [address], [place] [phone] [facility] [address] [facility], [place] [address], [place] [phone] * ABO/Rh Blood Type (12/11/2024 12:08 PM EDT) Pathologist [facility] ABO Blood Type AB 12/11/2024 1:50 PM EDT [facility] RH Type Positive 12/11/2024 1:50 PM EDT [facility] Blood Structure of peripheral vein / Unknown Venipuncture / Unknown 12/11/2024 12:08 PM EDT 12/11/2024 1:04 PM EDT Franklin Flowers MD LAB BLOOD BANK TEST ORDER HENRY Final Result [facility] [address] [place] [address], [place] [phone] * (ABNORMAL) Hepatitis B Surface Antibody (12/11/2024 12:08 PM EDT) Hepatitis B Surface Ab Immunity, Qn <5(L) > OR = 10 mIU/mL 12/12/2024 4:47 AM EDT [facility] Comment: PATIENT DOES NOT HAVE IMMUNITY TO HEPATITIS B VIRUS. For additional information, please refer to http://education.Reebonz/faq/TQM452 (This link is being provided for informational/ educational purposes only). Blood Structure of peripheral vein / Unknown Venipuncture / Unknown 12/11/2024 12:08 PM EDT 12/11/2024 12:23 PM EDT Narrative [facility] - 12/12/2024 4:47 AM EDT [facility] Received Date: Franklin Flowers MD LAB BLOOD ORDERABLES [place] Result [facility] 200 [facility] 3rd Floor, [place] [address], [place] [phone] [facility] [address], [place] [address], [place] [phone] * Hepatitis B Surface Antigen w/Confirmation (12/11/2024 12:08 PM EDT) Hepatitis B Surface Antigen NON-REACT MARSHALL NON-REACT MARSHALL 12/11/2024 9:08 PM EDT [facility] Comment: For additional information, please refer to http://Fixstars.Reebonz/faq/IGI969 (This link is being provided for informational/ educational purposes only.) Blood Structure of peripheral vein / Unknown Venipuncture / Unknown 12/11/2024 12:08 PM EDT 12/11/2024 12:23 PM EDT Narrative [facility] - 12/11/2024 9:08 PM EDT [facility] Received Date: Franklin Flowers MD LAB BLOOD ORDERABLES [place] Result [facility] 200 [facility] 3rd Floor, [place] [address], [place] [phone] [facility] 200 [facility] 3rd Floor, [place] [address], [place] [phone] * (ABNORMAL) Cytomegalovirus Antibody, IgG (12/11/2024 12:08 PM EDT) [facility] Cytomegalovirus Antibody (IgG) >10.00(H ) U/mL 12/11/2024 9:30 PM EDT [facility] Comment: U/mL Interpretation ----- <0.60 Negative 0.60-0.69 Equivocal > or = 0.70 Positive A positive result indicates that the patient has antibody to CMV. It does not differentiate between an active or past infection. Blood Structure of peripheral vein / Unknown Venipuncture / Unknown 12/11/2024 12:08 PM EDT 12/11/2024 12:23 PM EDT Narrative [facility] 12/11/2024 9:30 PM EDT [facility] Received Date: us Franklin Flowers MD LAB BLOOD ORDERABLES [place] bar[place]w Result [address], [place] [address], [place] [phone] [facility] [address], [place] [address], [place] [phone] * (ABNORMAL) PTT (12/11/2024 12:08 PM EDT) [facility] aPTT 36.4(H) 23.0 - 32.0 Seconds 12/11/2024 12:48 PM EDT [email or web address] Comment: Current PTT reagent is not sensitive to detect all Lupus Anticoagulant (LA) Inhibitor Cases. If a LA is suspected, please order a Lupus Anticoagulation w/ Reflex Test which is performed at [facility] in [place], [place]. Blood Structure of peripheral vein / Unknown Venipuncture / Unknown 12/11/2024 12:08 PM EDT 12/11/2024 12:24 PM EDT us Franklin Flowers MD LAB BLOOD ORDERABLES [place] l Result Performing Organization Address [facility] de Phone Number [facility] [address] [place] [address], * (ABNORMAL) Protime-INR (12/11/2024 12:08 PM EDT) PT 23.5(H) 9.6 - 12.4 Seconds 12/11/2024 12:48 PM EDT [facility] INR 2.3 0.9 - 1.1 12/11/2024 12:48 PM EDT [facility] Comment:The optimal therapeu tic INR range for patients treated with Vitamin K antagonists (VKAS, e.g., Warfarin) is 2.0 to 3.5. Discuss the desired range with your doctor/care team. Blood Structure of peripheral vein / Unknown Venipuncture / Unknown 12/11/2024 12:08 PM EDT 12/11/2024 12:24 PM EDT Franklin Flowers MD LAB BLOOD ORDERABLES [place] l Result Performing Organization Address [facility] de Phone Number [facility] [address] [place] [address], * Varicella Zoster Antibody, IgG (12/11/2024 12:08 PM EDT) Pathologist [facility] Varicella Zoster Virus Antibody 32.50 S/CO 12/12/2024 4:[email or web address] [facility] Comment: Signal to Cut-off S/CO Interpretation --------- [...] EDT 12/11/2024 12:24 PM EDT Narrative [facility] - 12/12/2024 4:28 AM EDT [facility] Received Date:[id number] Franklin Flowers MD LAB BLOOD ORDERABLES [place] l Result [facility] [address], [place] [address], [place] [phone] [facility] [address] [facility], [place] [address], [place] [phone] * (ABNORMAL) BUN (12/11/2024 12:08 PM EDT) BUN 41(H) 7 - 23 mg/dL 12/11/2024 12:59 PM EDT [facility] Blood Structure of peripheral vein / Unknown Venipuncture / Unknown 12/11/2024 12:08 PM EDT 12/11/2024 12:26 PM EDT Franklin Flowers MD LAB BLOOD ORDERABLES [place] Result [facility] [address] [place] [address], [place] * ALT (12/11/2024 12:08 PM EDT) ALT 20 10 - 40 U/L 12/11/2024 12:59 PM EDT [facility] Blood Structure of peripheral vein / Unknown Venipuncture / Unknown 12/11/2024 12:08 PM EDT 12/11/2024 12:26 PM EDT Franklin Flowers MD LAB BLOOD ORDERABLES [place] [facility] [address] [place] [address], * AST (12/11/2024 12:08 PM EDT) AST 30 10 - 40 U/L 12/11/2024 12:59 PM EDT [facility] Blood Structure of peripheral vein / Unknown Venipuncture / Unknown 12/11/2024 12:08 PM EDT 12/11/2024 12:26 PM EDT Franklin Flowers MD LAB BLOOD ORDERABLES [place] Result Performing Organization Address [facility] Co de Phone Number [facility] [address] [place] [address], [place] * Phosphorus (12/11/2024 12:08 PM EDT) Phosphorus 3.4 2.5 - 4.5 mg/dL 12/11/2024 12:59 PM EDT [facility] Blood Structure of peripheral vein / Unknown Venipuncture / Unknown 12/11/2024 12:08 PM EDT 12/11/2024 12:26 PM EDT Franklin Flowers MD LAB BLOOD ORDERABLES [place] [facility] [address] [place] [address], [place] * (ABNORMAL) Creatinine (12/11/2024 12:08 PM EDT) Creatinine 3.06(H) 0.50 - 1.20 mg/dL 12/11/2024 12:59 PM EDT [facility] eGFR 17(L) >=60 mL/min/1 .73m2 12/11/2024 12:59 PM EDT [facility] Comment:The estimated glomer ular [...] ORDERABLES [place] Result Performing Organization Address [facility]/ZIP Co de Phone Number [facility] [address] [place] [address], [place] * (ABNORMAL) Calcium (12/11/2024 12:08 PM EDT) Calcium 10.7(H) 8.6 - 10.5 mg/dL 12/11/2024 12:59 PM EDT [facility] Blood Structure of peripheral vein / Unknown Venipuncture / Unknown 12/11/2024 12:08 PM EDT 12/11/2024 12:26 PM EDT Franklin Flowers MD LAB BLOOD ORDERABLES [place] Result Performing Organization Address [facility]/ZIP Co de Phone Number [facility] [address] [place] [address], [place] * Bilirubin, Direct (12/11/2024 12:08 PM EDT) Bilirubin, Direct 0.2 <=0.4 mg/dL 12/11/2024 12:59 PM EDT [facility] Blood Structure of peripheral vein / Unknown Venipuncture / Unknown 12/11/2024 12:08 PM EDT 12/11/2024 12:26 PM EDT Franklin Flowers MD LAB BLOOD ORDERABLES [place] Result Performing Organization Address [facility]/ZIP Co de Phone Number [email or web address] [address] [place] [phone], [place] * Bilirubin, Total (12/11/2024 12:08 PM EDT) Bilirubin, Total 0.5 0.2 - 1.2 mg/dL 12/11/2024 12:59 PM EDT [facility] Blood Structure of peripheral vein / Unknown Venipuncture / Unknown 12/11/2024 12:08 PM EDT 12/11/2024 12:26 PM EDT Franklin Flowers MD LAB BLOOD ORDERABLES [place] Result Performing Organization Address [facility]/ZIP Co de Phone Number [facility] [address] [place] [address], [place] * Albumin (12/11/2024 12:08 PM EDT) Albumin 4.2 3.5 - 5.2 g/dL 12/11/2024 12:59 PM EDT [facility] Blood Structure of peripheral vein / Unknown Venipuncture / Unknown 12/11/2024 12:08 PM EDT 12/11/2024 12:26 PM EDT Franklin Flowers MD LAB BLOOD ORDERABLES [place] [facility] [address] [place] [id number], [place] * (ABNORMAL) Microalbumin, Random Urine with Creatinine (08/07/2023 9:01 AM EST) Creatinine, Random Urine 92 20 - 275 mg/dL 08/08/2023 6:[address] [email or web address] Microalbumin 150.8 mg/dL 08/08/2023 6:[email or web address] Comment: Verified by repeat analysis. Reference Range Not established Microalbumin/Crea tinine Ratio, Random Urine 1,639(H) <30 mcg/mg creat 08/08/2023 6:[email or web address] Comment: The ADA defines abnormalities in [...] ORDERABLES Final Resul t [facility] [address] [facility] [address], [place] [address], [email or web address] [address] [place] [address] * (ABNORMAL) Vitamin D, 25-Hydroxy, Total, Immunoassay (06/05/2023 11:53 AM EDT) Calcidiol+ercalc idiol 22(L) 30 - 100 ng/mL 06/05/2023 9:[email or web address] Comment: Vitamin D Status 25-OH Vitamin D: Deficiency: <20 ng/mL Insufficiency: 20 - 29 ng/mL Optimal: > or = 30 ng/mL For 25-OH Vitamin D testing on patients on D2-supplementation and patients for whom quantitation of D2 and D3 fractions is required, the QuestAssureD(TM) 25-OH VIT D, (D2,D3), LC/MS/MS is recommended: order code 83168 (patients >2yrs). See Note 1 Note 1 For additional information, please refer to http://education.MiiPharos/faq/XWU086 (This link is being provided for informational/ educational purposes only.) Blood Structure of peripheral vein / Unknown 06/05/2023 11:53 AM EDT 06/05/2023 7:56 PM EDT Narrative [facility] - 06/09/2023 5:04 AM EDT FASTING:NO [employer] LAB BLOOD ORDERABLES Final Resul t Performing Organization Address [facility] de Phone Number [facility] [address], [place] [address], [place] [phone] [facility] [address] [address] * (ABNORMAL) PTH, Intact (without Calcium) (06/05/2023 11:53 AM EDT) Parathyroid Hormone, Intact 205(H) 16 - 77 pg/mL 06/06/2023 1:16 AM EDT [facility] Comment: Interpretive Guide Intact PTH Calcium ------- Normal Parathyroid Normal Normal Hypoparathyroidism Low or Low Normal Low Hyperparathyroidism Primary Normal or High High Secondary High Normal or Low Tertiary High High Non-Parathyroid Hypercalcemia Low or Low Normal High Blood Structure of peripheral vein / Unknown 06/05/2023 11:53 AM EDT 06/05/2023 11:02 PM EDT Narrative [facility] - 06/09/2023 5:04 AM EDT FASTING:NO [employer] LAB BLOOD ORDERABLES Final Resul t Performing Organization Address [facility] de Phone Number [facility] [address], [place] [address], [place] [phone] [facility] [address] [address] * (ABNORMAL) Renal Function Panel (06/05/2023 11:53 AM EDT) [facility] Glucose 89 65 - 139 mg/dL 06/05/2023 10:49 PM EDT [facility] Comment: Non-fasting reference interval BUN 39(H) 7 - 25 mg/dL 06/05/2023 10:49 PM EDT [facility] Creatinine 2.61(H) 0.50 - 1.03 mg/dL 06/05/2023 10:49 PM EDT [facility] eGFR 21(L) > OR = 60 mL/min/1. 73m2 06/05/2023 10:49 PM EDT [facility] Bun/Creatinine Ratio 15 6 - 22 (calc) 06/05/2023 10:49 PM EDT [facility] Sodium 137 135 - 146 mmol/L 06/05/2023 10:49 PM EDT [facility] Potassium 4.6 3.5 - 5.3 mmol/L 06/05/2023 10:49 PM EDT [facility] Chloride 111(H) 98 - 110 mmol/L 06/05/2023 10:49 PM EDT [facility] Carbon Dioxide 18(L) 20 - 32 mmol/L 06/05/2023 10:49 PM EDT [facility] Calcium 9.8 8.6 - 10.4 mg/dL 06/05/2023 10:49 PM EDT [facility] Phosphate 3.5 2.5 - 4.5 mg/dL 06/05/2023 10:49 PM EDT [facility] Albumin 4.0 3.6 - 5.1 g/dL 06/05/2023 10:49 PM EDT [facility] Blood Structure of peripheral vein / Unknown 06/05/2023 11:53 AM EDT 06/05/2023 7:56 PM EDT Narrative [facility] - 06/09/2023 5:04 AM EDT FASTING:NO us Anupama Bynum DO LAB BLOOD ORDERABLES Final Resul t [facility] [address] [facility] [address], [place] [address], [facility] [address] [place] [address] from Last 3 Months or Most Recently Relevant to Health Maintenance Insurance * Guarantor: Aneta Gan Account Type Relation to Patient Date of Phone Billing Address Personal/Family Self 1965 [phone] (Work) [address] [place] [address] [facility] * Guarantor: Aneta Gan Account Type Relation to Patient Date of Phone Billing Address Transplant Self 1965 [phone] (Work) [address] [place] [address] 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
--- OUTSIDE RECORDS SUMMARY | 2025-02-25 15:02 | XMS_ITS | Encounter Summary ---
Author Organization [facility] Address [address] [place] [address] Phone Care Team Providers Care Microsoft Dynamics Manager Architect Name Role Phone Unavailable Primary Care Provider Unavailabl e Encounter Details Date Type Department Care Team (Late st Contact Info) Description 08/10/2022 Telephone [facility] [address] [place] [address] Roe Morrissey MD Social History [...] Iris Gee - 08/10/2022 10:19 AM EST [facility] insurance verification called, pt will need a PA for her truxima infusion that is scheduled for tomorrow. This will need to go through [facility]. documented in this encounter Plan of [...] EDT) Calcium 9.1 8.4 - 10.2 mg/dL [place] 11/06/2022 4:20 PM EDT 11/06/2022 4:20 PM EDT Roe Morrissey MD LAB BLOOD ORDERABLES Final Res ult [place] * (ABNORMAL) Creatinine (11/06/2022 4:20 PM EDT) Creatinine Serum 2.59(H) 0.5 - 1.4 mg/dL [facility] eGFR (Calc) 19 [facility] Comment: NOTE: For -Macedonian individuals, multiply the result by 1.210. Chronic Kidney Disease: Estimated GFR < 60 mL/min/1.73m2 Severe Kidney Disease: Estimated GFR < 15 mL/min/1.73m2 11/06/2022 4:20 PM EDT 11/06/2022 4:20 PM EDT Roe Morrissey MD LAB BLOOD ORDERABLES Final Res ult Performing Organization Address City/[facility]/ZIP Co de Phone Number [place] * (ABNORMAL) BUN (11/06/2022 4:20 PM EDT) BUN 44(H) 9 - 16 mg/dL [place] 11/06/2022 4:20 PM EDT 11/06/2022 4:20 PM [...]
--- OUTSIDE RECORDS SUMMARY | 2025-02-25 15:02 | XMS_ITS | Clinical Summary ---
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
[2025-02-25 15:29] LABS: Hematocrit 34.0 % (37.0-47.0); Hemoglobin 10.9 g/dl (12.0-16.0); Mean Corpuscular HGB Conc 32.1 g/dl (31.0-35.0); Mean Corpuscular Hemoglobin 29.8 pg (27.0-33.0); Mean Corpuscular Volume 92.9 fL (80.0-98.0); NRBC Abs Auto 0.000 X10*3/uL (0.0-0.012); NRBC Pct Auto 0.0 /100WBC (0.0-0.2); Platelet Count 272 X10*3/uL (160-400); Red Blood Count 3.66 X10*6/uL (4.20-5.50); White Blood Count 7.6 X10*3/uL (4.8-10.8)
[2025-02-25 15:47] LABS: Anion Gap 11 (12-20); Blood Urea Nitrogen 53 mg/dL (9-16); Calcium 10.4 mg/dL (8.4-10.2); Carbon Dioxide 22 mmol/L (22-29); Chloride 111 mmol/L (96-108); Estimated Glomerular Filt Rate 16; Potassium 4.9 mmol/L (3.3-5.1); Sodium 139 mmol/L (135-145)
== END 2025-02-25 14:24 | disposition home or self-care (01) ==
LOC: HO.LAB 14:23
PROVIDERS: PCP Physician Assistant; Visit Provider Internal Medicine Hypertension Specialist
DX: N18.4 Chronic kidney disease, stage 4 (severe) (principal)
CPT/HCPCS: 36415; 80048; 85027

== ENCOUNTER 2025-03-02 15:28 | Outpatient (AMB) | payer OTHER, MEDICAID, SELFPAY ==
--- NOTE | 2025-03-02 15:31 | HO.NEPHOV_ITS ---
Vital Signs 03/02/25 15:32 Height 5 ft Weight 138 lb BMI 26.9 BP 120/80 Blood Pressure Location Rt brachial Position Sitting Pulse 80 Pulse Source Pulse Oximeter Pulse Oximetry (%) 98 Oxygen Delivery Method Room Air Intake Visit Reasons: FU-Conf Instrument Man Required: No Accompanied by: Self / Same As Patient Allergies rituximab (From Rituxan) Allergy (Severe, Verified 02/03/25 15:10) Anaphylaxis cephalexin (From Keflex) Allergy (Unknown, Verified 02/03/25 15:10) RED+ITCHY,RASH Cephalosporins (CEPHALOSPORINS) Allergy (Unknown, Verified 02/03/25 15:10) RED+ITCHY Sulfa (Sulfonamide Antibiotics) (SULFA(SULFONAMIDE ANTIBIOTICS)) Allergy (Unknown, Verified 02/03/25 15:10) RED+ITCHY mycophenolate mofetil (From CellCept) Adverse Reaction (Intermediate, Verified 02/03/25 15:10) rash cellcept Allergy (Severe, Uncoded 01/13/25 15:11) Hives retuxin Adverse Reaction (Severe, Uncoded 01/13/25 15:11) Abdominal Pain Medication List - Last Reconciled 03/02/25 by Roe Morrissey MD atorvastatin 20 mg PO BEDTIME 30 days calcitriol 0.25 mcg PO DAILY clobetasol 0.05% 1 appl topical DAILY fluocinonide 0.05% appl topical gabapentin 200 mg PO DAILY PRN levothyroxine 100 mcg PO DAILY lisinopril 2.5 mg PO DAILY loratadine 10 mg PO DAILY PRN magnesium oxide 250 mg PO BID prednisone 2.5 mg PO DAILY sodium bicarbonate 650 mg PO BID warfarin 5 mg See Protocol PO DAILY HPI Comments Details: Aneta 59-year-old woman with history of SLE. She has chronic kidney disease. In 2001, she had a kidney biopsy which showed membranous nephropathy. She was treated with Cytoxan and prednisone and obtain remission. She would relapsed again and was treated with mycophenolate followed by active but she did not tolerate these medications and she refused treatment. She did receive a dose of Rituxan in early August 2022 and subsequently did not want further treatment due to perceived side effects. 12/10/23: Doing well today ;Waiting for Benlysta 03/25/24 ;Insurance did not cover Benlysta ; Now she is on Cellcept 06/17/24 ;Off Cellcept; on prednisone 2.5mg ; No new issues 09/25/24 ;Recently had COVID ;Feels tired 03/02/25: Overall doing ok. Being evaluated for transplant in [facility] Medical History Prediabetes SLE glomerulonephritis syndrome History of pulmonary embolism Vitamin D deficiency Hypertriglyceridemia Hypothyroidism Surgical History Hx of tubal ligation Family History Father Family history unknown Mother Hypertension Diabetes Deep vein thrombosis CVA (cerebral vascular accident) Brother CVA (cerebral vascular accident), Onset Age: 48 Brother CVA (cerebral vascular accident), Onset Age: 38 Social History Household Members: None Housing: House Alcohol intake: former Patient Tobacco Use Status: Former Tobacco user Tobacco use type: Cigarette e-Cigarette/Vaping Use: Never Used Second Hand Smoke Exposure: Yes service: No Current occupational status: employed 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 Cognitive needs: No Hearing needs: No Vision needs: No Physical Exam Vital Signs: Last Vital Signs Pulse 80 03/02/25 15:32 BP 120/80 03/02/25 15:32 Pulse Ox 98 03/02/25 15:32 Oxygen Delivery Method Room Air 03/02/25 15:32 BMI result Body Mass Index 26.9 Const General: comfortable; No acute distress Orientation/consciousness: patient oriented x3 Eyes General: appearance normal, both eyes and all related structures Visual Penaloza: normal visual penaloza by confrontation Neck Neck: Yes supple and Yes no JVD Resp Effort & Inspection: normal respiratory effort and respiratory effort not decreased Auscultation: rhonchi Cardio Palpation: no palpable S3 and no palpable S4 Heart sounds: no rubs GI Inspection: Yes normal to inspection Palpation (GI): Soft to palpation Percussion: Yes normal to percussion Auscultation: normal bowel sounds General: Yes no CVA tenderness Back/Spine/Pelvis Back: no CVA tenderness Skin General skin exam: no petechiae and no purpura Neuro General: patient oriented x3 and no focal motor deficits Extrem General: No clubbing and No edema Results Reviewed Nephrology Results: Hgb, (12.0-16.0) 10.9 g/dl L 02/25/25 WBC, (4.8-10.8) 7.6 X10*3/uL 02/25/25 Plt Count, (160-400) 272 X10*3/uL 02/25/25 Sodium, (135-145) 139 mmol/L 02/25/25 Potassium, (3.3-5.1) 4.9 mmol/L Δ 02/25/25 Chloride, (96-108) 111 mmol/L H 02/25/25 Carbon Dioxide, (22-29) 22 mmol/L 02/25/25 BUN, (9-16) 53 mg/dL H 02/25/25 Creatinine, (0.5-1.4) 2.97 mg/dL H 02/25/25 Calcium, (8.4-10.2) 10.4 mg/dL H Δ 02/25/25 Assessment & Plan Assessment & Plan (1) CKD (chronic kidney disease) stage 4, GFR 15-29 ml/min: Code(s): N18.4 - Chronic kidney disease, stage 4 (severe) Category: Medical Plan: Due to underlying lupus nephropathy. Advanced CKD No signs or symptoms of uremia. No absolute indication to start her on renal replacement therapy yet. 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 Mild anemia in the setting of lupus and CKD. No indication for Epogen yet. We will screen for secondary hyperparathyroidism. Maintain blood pressure less than 130/80. Continue to avoid nephrotoxic agents including NSAIDs. Hypercalcemia - Decreased Calcitriol CA BACK TO NORMAL Watch PTH Decrease Calcium supplementation from 600mg BID to QD Advanced CKD approaching ESRD renal transplant evaluation in progress in [facility] Refer to PD education . (2) Lupus (systemic lupus erythematosus): Comment: onset 1539-2953 Treated with Cytoxan and prednisone Coumadin throughout Cyclosporin 2005 DC due to epigastric pain CellCept 2008 up titrated to 3 g daily, developed worsening proteinuria Rituximab 2 doses, 2 weeks apart 2010 Believes that she took hydroxychloroquine and discontinued it due to tinnitus ?! Benlysta 02/2012 was helpful especially for skin lesions. Discontinued due to loss of insurance Acthar gel 2017 took it for about a year inconsistently Repeat kidney biopsy 04/2022 showed class 3 and 5 nephritis. Received 1 dose of rituximab 08/2022 with some improvement Benlysta 12/2023. DC 02/2024. Could not afford co-pay CellCept tried again 02/2024. DC'd after 1 dose due to rash Code(s): M32.9 - Systemic lupus erythematosus, unspecified Category: Medical Qualifiers: Systemic lupus erythematosus organ involvement: glomerular disease Systemic lupus erythematosus type: other Qualified Code(s): M32.14 - Glomerular disease in systemic lupus erythematosus (3) SLE glomerulonephritis syndrome: Comment: onset 4536-4302 class 3 and class 5 nephritis, low C3, low C4 Repeat kidney biopsy 04/2022 showed class 3 and 5 nephritis. Received 1 dose of rituximab 08/2022 with some improvement Code(s): M32.14 - Glomerular disease in systemic lupus erythematosus Category: Medical Plan: Unable to tolerate Cyclosporin/CEllcept/Rituxan Plan . Orders: Orders Basic Metabolic Panel 2 Months .14 - Glomerular disease in systemic lupus erythematosus, N18.4 - Chronic kidney disease, stage 4 (severe) Parathyroid Hormone Intact 2 Months M32.14 - Glomerular disease in systemic lupus erythematosus, N18.4 - Chronic kidney disease, stage 4 (severe) Complete Blood Count no Diff 2 Months M32.14 - Glomerular disease in systemic lupus erythematosus, N18.4 - Chronic kidney disease, stage 4 (severe) Phosphorus 2 Months M32.14 - Glomerular disease in systemic lupus erythematosus, N18.4 - Chronic kidney disease, stage 4 (severe) Coding Level of Care Code Est Pt Level 4 (97176) Diagnoses CKD (chronic kidney disease) stage 4, GFR 15-29 ml/min N18.4 Other systemic lupus erythematosus with glomerular disease M32.14 Systemic lupus erythematosus organ involvement: glomerular disease Systemic lupus erythematosus type: other SLE glomerulonephritis syndrome M32.14
[2025-03-02 15:32] VITALS: BP 120/80; PULSE 80; O2SAT 98; BMI 26.9
--- OUTSIDE RECORDS SUMMARY | 2025-03-02 15:47 | XMS_ITS | Clinical Summary ---
Author Organization [facility] Address [address] [place] [address] Care Team Providers Care Right Of Way Supervisor Name Role Phone Franklin Sanchez Primary Care Provider [phone] Allergies Active Allergy Reactions Criticality Noted Date [...] propionate (FLONASE) 50 mcg/actuation nasal spray SMARTSI Cameron(s) Both Nares Twice Daily 5 Active sodium bicarbonate 650 mg tablet SMARTSI Tablet(s) By Mouth Twice Daily 5 Active predniSONE (DELTASONE) 2.5 mg tablet 5 Active Active Problems No known active problems Encounters Date Type Department Care Team Description 02/18/2025 Orders Only [facility] Transplant Department [address] [place] [address] Zenobia Zepeda, RN Pre-transplant evaluation for end stage renal disease (Primary Dx); Chronic kidney disease, stage IV (severe) (HCC) 02/18/2025 Documentation [facility] Transplant Department [address] [place] [address] Seema Arredondo, PRIYANK ABO Dual Validation 02/18/2025 Orders Only [facility] Transplant Department [address] [place] [address] Zenobia Zepeda, RN 02/12/2025 Telephone [facility] Transplant Department [address] [place] [address] Zenobia Zepeda, entry level paralegal - Kidney Txp 01/12/2025 Orders Only External Imaging [address] [place] [address] Radiology, External 01/12/2025 Orders Only External Imaging [address] [place] [address] Radiology, External 12/18/2024 Telephone [facility] Transplant Department [address] [place] [address] Zenobia Zepeda, RN 12/12/2024 Telephone [facility] Transplant Department [address] [place] [address] Linh Patel RN 12/12/2024 Documentation [facility] Transplant Department [address] [place] [address] Delores Sepulveda LICSW 12/11/2024 12:00 PM EDT Lab [facility] [place] Lab Draw Site [address] [place] [address] Pre-transplant evaluation for end stage renal disease; Chronic kidney disease, stage IV (severe) (HCC) 12/11/2024 10:15 AM EDT Office Visit [facility] Renal Transplant [address] [place] [address] Franklin Flowers MD Pre-transplant evaluation for kidney transplant (Primary Dx); Pre-transplant evaluation for end stage renal disease; Stage 5 chronic kidney disease not on chronic dialysis (HCC) 12/11/2024 9:30 AM EDT Social Work [facility] Renal Transplant [address] [place] [address] Delores Sepulveda LICSW 12/11/2024 8:30 AM EDT Evaluation [facility] Renal Transplant [address] [place] [address] Zenobia Zepeda, PRIYANK Pre-transplant evaluation for kidney transplant (Primary Dx); ESRD (end stage renal disease) (HCC) 12/11/2024 8:00 AM EDT Office Visit [facility] Renal Transplant [address] [place] [address] Evon Sierra LPN Pre-transplant evaluation for kidney transplant (Primary Dx) 12/08/2024 Telephone [facility] Transplant Department [address] [place] [address] Zenobia Zepeda RN 12/04/2024 Orders Only [facility] Transplant Department [address] [place] [address] Zenobia Zepeda, PRIYANK Pre-transplant evaluation for end stage renal disease (Primary Dx); Chronic kidney disease, stage IV (severe) ([facility]) from Last 3 Months Family [...] Info) Description 12/08/2025 8:20 AM EDT Follow-Up [facility] Renal Transplant [address] [place] [address] Franklin Flowers MD [address] [place] [address] 12/08/2025 9:00 AM EDT Social Work [facility] Renal Transplant [address] [place] [address] Delores Sepulveda LICSW [address] [place] [address] Health Maintenance Due Date Last Done Comments [...] Screening Completed 12/11/2024 Procedures * Due to [place] state law, this organization might not be [...] IV (severe) (HCC) QUANTIFERON-TB GOLD PLUS, 1 [id number] Routine 12/11/2024 12:08 PM EDT Pre-transplant evaluation for end stage renal disease Chronic kidney disease, stage IV (severe) (HCC) RPR (DIAGNOSIS) W/REFLEX TO TITER & TPPA [id number] Routine 12/11/2024 12:08 PM EDT Pre-transplant evaluation for end stage renal disease Chronic kidney disease, stage IV (severe) (HCC) VARICELLA ZOSTER ANTIBODY, IGG Routine 12/11/2024 12:08 PM EDT Pre-transplant evaluation for end stage renal disease Chronic kidney disease, stage IV (severe) (HCC) HLA TRANSPLANT WORK-UP (ALLELE LEVEL A/B/C/DRB1/UKD621/DQA 1/DQB1/DPA1/DPB1) Routine 12/11/2024 12:08 PM EDT Pre-transplant [...] to Health Maintenance Results * Due to [place] state law, this organization might not be sharing negative HIV tests. * TYPE AND SCREEN - TRANSPLANT MANUAL ABSTRACTION (02/12/2025 4:03 PM EDT) ABO AB [facility] RH Positive [facility] 02/12/2025 4:03 PM EDT us Unknown Provider MD LAB HISTORICAL RESULTS Final Result [facility] [address] [place] [address] * Echo Outside Films (01/29/2025 11:36 AM EDT) Narrative 01/29/2025 11:36 AM EDT This order has been auto-finalized and does not contain a result. us External Radiology CV ECHO PROCEDURES Final Resu lt * HLA Transplan Work-Up(Allele Level A/B/C/DRB1/OTJ560/DQA1/DQB1/DPA1/DPB1) (12/11/2024 12:08 PM EDT) Histocompatibility Laboratory Information See Below 12/16/2024 4:30 PM EDT [facility] Comment: SUNI: [id number] Director: Hussein Olivo MD. [facility] PFI: [id number] UNOS: [id number] This test [...] testing. C*-1 C*04:01 12/16/2024 4:30 PM EDT [facility] C*-2 DATA NOT REPORTED [...] [facility] [address] Rm: [id number] [place] [address], * MMR Panel, IgG (12/11/2024 12:08 PM EDT) Pathologist [facility] [place] Measles Antibody (IgG), Immune Status >300.00 AU/mL 12/11/2024 9:31 PM EDT [facility] Comment: AU/mL Interpretation ----- <13.50 Not consistent with immunity 13.50-16.49 Equivocal >16.49 Consistent with immunity The presence of measles IgG suggests immunization or past or current infection with measles virus. For additional information, please refer to http://4Home.CorporateWorld/faq/HQF010 (This link is being provided for informational/ educational purposes only.) Mumps Antibody (IgG), Immune Status 114.00 AU/mL 12/11/2024 9:31 PM EDT [facility] Comment: AU/mL Interpretation ------- <9.00 Not consistent with immunity 9.00-10.99 Equivocal >10.99 Consistent with immunity The presence of mumps IgG antibody suggests immunization or past or current infection with mumps virus. Rubella Antibody (IgG), Immune Status 20.40 Index 12/11/2024 9:31 PM EDT [facility] Comment: Index Interpretation ----- <0.90 Not consistent with immunity 0.90-0.99 Equivocal > or = 1.00 Consistent with immunity The presence of rubella IgG antibody suggests immunization or past or current infection with rubella virus. Blood Structure of peripheral vein / Unknown Venipuncture / Unknown 12/11/2024 12:08 PM EDT 12/11/2024 12:23 PM EDT Narrative [facility] - 12/11/2024 9:31 PM EDT [facility] Received Date: us Franklin Flowers MD LAB BLOOD ORDERABLES [place] Result [facility] [address], [place] [address], [facility] [address], [place] [address], * (ABNORMAL) Herpes Simplex Virus 1&2, IgG (12/11/2024 12:08 PM EDT) Pathologist [facility] HSV 1 IgG Type Specific Ab 44.60(H) index 12/12/2024 4:21 AM EDT [facility] HSV 2 IgG Type Specific Ab 14.90(H) index 12/12/2024 4:21 AM EDT [facility] Comment: Index Interpretation ----- <0.90 Negative [...] screening. For additional information, please refer to http://education.CorporateWorld/faq/ASJ168 (This link is being provided for informational/ educational purposes only.) Blood Structure of peripheral vein / Unknown Venipuncture / Unknown 12/11/2024 12:08 PM EDT 12/11/2024 12:24 PM EDT Narrative [facility] - 12/12/2024 4:21 AM EDT [facility] Received Date:[id number] Franklin Flowers MD LAB BLOOD ORDERABLES [place] Result [facility] [address], [place] [address], [facility] [address], [place] [address], * RPR (Diagnosis) w/Reflex to Titer & TPPA Confirm (12/11/2024 12:08 PM EDT) Pathologist [facility] RPR W/Refl Titer NON-REACT MARSHALL NON-REACT MARSHALL 12/12/2024 11:54 AM EDT [facility] Blood Structure of peripheral vein / Unknown Venipuncture / Unknown 12/11/2024 12:08 PM EDT 12/11/2024 12:24 PM EDT Narrative [facility] - 12/12/2024 11:54 AM EDT [facility] Received Date: Franklin Flowers MD LAB BLOOD ORDERABLES [place] Result [facility] [address] [facility] [address]rd [address], [place] [address], [employer] [facility] [address] [facility] 3rd [address], [place] [address], * QuantiFERON-TB Gold Plus, 1 Tube (12/11/2024 12:08 PM EDT) [facility] QuantiFERON-TB Gold Plus NEGATIVE NEGATIVE 12/14/2024 2:16 AM EDT [facility] Comment: Negative test result. M. tuberculosis complex infection unlikely. NIL 0.03 IU/mL 12/14/2024 2:16 AM EDT [facility] Mitogen-NIL 9.50 IU/mL 12/14/2024 2:16 AM EDT [facility] TB1-NIL 0.02 IU/mL 12/14/2024 2:16 AM EDT [facility] TB2-NIL 0.01 IU/mL 12/14/2024 2:16 AM EDT [facility] Comment: The Nil tube value reflects the [...] T-lymphocytes. For additional information, please refer to https://education.Zervant/faq/FRW620 (This link is being provided for informational/ educational purposes only.) Blood Structure of peripheral vein / Unknown Venipuncture / Unknown 12/11/2024 12:08 PM EDT 12/11/2024 12:22 PM EDT [facility] 12/14/2024 2:16 AM EDT [facility] Received Date: Franklin Flowers MD LAB BLOOD ORDERABLES [place] Result [facility] [address] [facility] [address]rd [address], [place] [address], [place] [phone] [facility] [address] [facility] 3rd [address], [place] [address], [place] [phone] * (ABNORMAL) CBC Auto Differential (12/11/2024 12:08 PM EDT) WBC 6.6 3.8 - 10.8 10*3/uL 12/11/2024 12:32 PM EDT [facility] RBC 3.52(L) 3.80 - 5.10 10*6/uL 12/11/2024 12:32 PM EDT [facility] Hemoglobin 10.4(L) 11.7 - 15.5 g/dL 12/11/2024 12:32 PM EDT [facility] Hematocrit 33.1(L) 35.0 - 45.0 % 12/11/2024 12:32 PM EDT [facility] MCV 94.0 80.0 - 100.0 fL 12/11/2024 12:32 PM EDT [facility] MCH 29.5 27.0 - 33.0 pg 12/11/2024 12:32 PM EDT [facility] MCHC 31.4(L) 32.0 - 36.0 g/dL 12/11/2024 12:32 PM EDT [email or web address] RDW 13.3 11.0 - 15.0 % 12/11/2024 12:32 PM EDT [email or web address] Platelets 289 140 - 400 10*3/uL 12/11/2024 12:32 PM EDT [email or web address] MPV 10.4 7.5 - 12.5 fL 12/11/2024 12:32 PM EDT [email or web address] Neutrophil % 58.9 % 12/11/2024 12:32 PM EDT [facility] Immature Grans % 0.5 0.0 - 0.9 % 12/11/2024 12:32 PM EDT [facility] Lymphocyte % 30.5 % 12/11/2024 12:32 PM EDT [facility] Monocyte % 5.8 % 12/11/2024 12:32 PM EDT [facility] Eosinophil % 3.8 % 12/11/2024 12:32 PM EDT [facility] Basophil % 0.5 % 12/11/2024 12:32 PM EDT [facility] Neutrophil # 3.86 1.50 - 7.80 10*3/uL 12/11/2024 12:32 PM EDT [facility] Immature Grans # 0.03 <=0.03 10*3/uL 12/11/2024 12:32 PM EDT [email or web address] Lymphocyte # 2.00 0.85 - 3.90 10*3/uL 12/11/2024 12:32 PM EDT [facility] Monocyte # 0.40 0.20 - 0.95 10*3/uL 12/11/2024 12:[address] [facility] LAB[facility] Eosinophil # 0.30 0.02 - 0.50 10*3/uL 12/11/2024 12:[address] [facility] LAB[facility] Basophil # <0.03 0.00 - 0.20 10*3/uL 12/11/2024 12:[address] [facility] LAB[facility] nRBC % 0.0 /100 WBCs 12/11/2024 12:[address] [facility] LABORATORY nRBC # <0.01 <0.01 10*3/uL 12/11/2024 12:[address] [facility] Blood Structure of peripheral vein / Unknown Venipuncture / Unknown 12/11/2024 12:08 PM EDT 12/11/2024 12:24 PM EDT us Franklin Flowers MD LAB BLOOD ORDERABLES [place] Result [facility] [address] [place] [address], * (ABNORMAL) Timo-Lee Virus VCA Antibody Panel (12/11/2024 12:08 PM EDT) EBV Viral Capsid Ag Ab (IGM) <36.00 U/mL 12/12/2024 4:20 AM EDT [facility] Comment: U/mL Interpretation ---- <36.00 Negative 36.00-43.99 Equivocal >43.99 Positive EBV Viral Capsid Ag Ab (IGG) 386.00(H) U/mL 12/12/2024 4:20 AM EDT [facility] Comment: U/mL Interpretation ---- <18.00 Negative 18.00-21.99 Equivocal >21.99 Positive EBV Nuclear Ag Ab >600.00(H) U/mL 025 4:20 AM EDT [facility] Comment: U/mL Interpretation ---- <18.00 Negative 18.00-21.99 Equivocal >21.99 Positive Interpretation: See Comments 12/12/2024 4:20 AM EDT [facility] Comment: Suggestive of a past Timo-Lee virus infection. In infants, a similar pattern may occur as a result of passive maternal transfer of antibody. Blood Structure of peripheral vein / Unknown Venipuncture / Unknown 12/11/2024 12:08 PM EDT 12/11/2024 12:23 PM EDT Narrative [facility] - 12/12/2024 4:20 AM EDT [facility] Received Date: Franklin Flowers MD LAB BLOOD ORDERABLES [place] Result [facility] [address] [facility] [address]rd [address], [place] [address], [employer] [facility] 200 [facility] 3[address], [place] [address], * Hepatitis C Antibody w/Reflex to PCR (12/11/2024 12:08 PM EDT) Hepatitis C Antibody NON-REACT MARSHALL NON-REACT MARSHALL 12/12/2024 6:33 AM EDT [facility] Comment: HCV antibody was non-reactive. There is no laboratory evidence of HCV infection. In most cases, no further action is required. However, if recent HCV exposure is suspected, a test for HCV RNA (test code 51671) is suggested. For additional information please refer to http://education.Zervant/faq/OBZ11d3 (This link is being provided for informational/ educational purposes only.) Blood Structure of peripheral vein / Unknown Venipuncture / Unknown 12/11/2024 12:08 PM EDT 12/11/2024 12:23 PM EDT Narrative [facility] - 12/12/2024 6:33 AM EDT [facility] Received Date: us Franklin Flowers MD LAB BLOOD ORDERABLES [place] Result [facility] [address], [address] [facility] [place] [address], [place] [phone] [facility] [address], [place] [address], [place] [phone] * (ABNORMAL) Hepatitis A Antibody, Total (12/11/2024 12:08 PM EDT) Hepatitis A Ab, Total REACTIVE( A) NON-REACT MARSHALL 12/12/2024 5:23 AM EDT [facility] Comment: For additional information, please refer to http://4Home.Zervant/faq/NXI013 (This link is being provided for informational/ educational purposes only.) Blood Structure of peripheral vein / Unknown Venipuncture / Unknown 12/11/2024 12:08 PM EDT 12/11/2024 12:23 PM EDT Narrative [facility] - 12/12/2024 5:23 AM EDT [facility] Received Date:[id number] us Franklin Flowers MD LAB BLOOD ORDERABLES [place] Result [facility] [address], [address] [facility] [place] [address], [place] [phone] [facility] [address], [place] [address], [place] [phone] * Hepatitis B Core Antibody, Total (12/11/2024 12:08 PM EDT) Hepatitis B Core Ab Total NON-REACT MARSHALL NON-REACT MARSHALL 12/11/2024 9:08 PM EDT [employer] [facility] Comment: For additional information, please refer to http://education.Zervant/faq/AAI466 (This link is being provided for informational/ educational purposes only.) Blood Structure of peripheral vein / Unknown Venipuncture / Unknown 12/11/2024 12:08 PM EDT 12/11/2024 12:24 PM EDT Narrative [facility] - 12/11/2024 9:08 PM EDT [facility] Received Date: Franklin Flowers MD LAB BLOOD ORDERABLES [place] Result [facility] [address] [facility] 3rd [address], [place] [address], [place] [phone] [facility] [address] [facility], [place] [address], [place] [phone] * ABO/Rh Blood Type (12/11/2024 12:08 PM EDT) Pathologist [facility] ABO Blood Type AB 12/11/2024 1:50 PM EDT [facility] RH Type Positive 12/11/2024 1:50 PM EDT [facility] Blood Structure of peripheral vein / Unknown Venipuncture / Unknown 12/11/2024 12:08 PM EDT 12/11/2024 1:04 PM EDT Franklin Flowers MD LAB BLOOD BANK TEST ORDER HENRY Final Result [facility] [address] [place] [address], [place] [phone] * (ABNORMAL) Hepatitis B Surface Antibody (12/11/2024 12:08 PM EDT) Hepatitis B Surface Ab Immunity, Qn <5(L) > OR = 10 mIU/mL 12/12/2024 4:47 AM EDT [facility] Comment: PATIENT DOES NOT HAVE IMMUNITY TO HEPATITIS B VIRUS. For additional information, please refer to http://education.Zervant/faq/RZL154 (This link is being provided for informational/ educational purposes only). Blood Structure of peripheral vein / Unknown Venipuncture / Unknown 12/11/2024 12:08 PM EDT 12/11/2024 12:23 PM EDT Narrative [facility] - 12/12/2024 4:47 AM EDT [facility] Received Date: Franklin Flowers MD LAB BLOOD ORDERABLES [place] Result [facility] [address] [facility] [address]rd [address], [place] [address], [place] [phone] [facility] [address], [place] [address], [place] [phone] * Hepatitis B Surface Antigen w/Confirmation (12/11/2024 12:08 PM EDT) Hepatitis B Surface Antigen NON-REACT MARSHALL NON-REACT MARSHALL 12/11/2024 9:08 PM EDT [facility] Comment: For additional information, please refer to http://4Home.Zervant/faq/MVL085 (This link is being provided for informational/ educational purposes only.) Blood Structure of peripheral vein / Unknown Venipuncture / Unknown 12/11/2024 12:08 PM EDT 12/11/2024 12:23 PM EDT Narrative [facility] - 12/11/2024 9:08 PM EDT [facility] Received Date: Franklin Flowers MD LAB BLOOD ORDERABLES [place] Result [facility] [address] [facility] 3rd [address], [place] [address], [place] [phone] [facility] 200 [facility] 3rd Floor, [place] [address], [place] [phone] * (ABNORMAL) Cytomegalovirus Antibody, IgG (12/11/2024 12:08 PM EDT) [facility] Cytomegalovirus Antibody (IgG) >10.00(H ) U/mL 12/11/2024 9:30 PM EDT [facility] Comment: U/mL Interpretation ----- <0.60 Negative 0.60-0.69 Equivocal > or = 0.70 Positive A positive result indicates that the patient has antibody to CMV. It does not differentiate between an active or past infection. Blood Structure of peripheral vein / Unknown Venipuncture / Unknown 12/11/2024 12:08 PM EDT 12/11/2024 12:23 PM EDT Narrative [facility] 12/11/2024 9:30 PM EDT [facility] Received Date: us Franklin Flowers MD LAB BLOOD ORDERABLES [place] Result [address], [place] [address], [place] [phone] [facility] [address], [place] [address], [place] [phone] * (ABNORMAL) PTT (12/11/2024 12:08 PM EDT) [facility] aPTT 36.4(H) 23.0 - 32.0 Seconds 12/11/2024 12:48 PM EDT [employer] [facility] Comment: Current PTT reagent is not sensitive to detect all Lupus Anticoagulant (LA) Inhibitor Cases. If a LA is suspected, please order a Lupus Anticoagulation w/ Reflex Test which is performed at [facility] in [place], [place]. Blood Structure of peripheral vein / Unknown Venipuncture / Unknown 12/11/2024 12:08 PM EDT 12/11/2024 12:24 PM EDT us Franklin Flowers MD LAB BLOOD ORDERABLES [place] Result Performing Organization Address [facility] de Phone Number [facility] [address] [place] [address], * (ABNORMAL) Protime-INR (12/11/2024 12:08 PM EDT) PT 23.5(H) 9.6 - 12.4 Seconds 12/11/2024 12:48 PM EDT [facility] INR 2.3 0.9 - 1.1 12/11/2024 12:48 PM EDT [facility] Comment:The optimal therapeu tic [...] Organization Address [facility] de Phone Number [facility] [address] [place] [address], * Varicella Zoster Antibody, IgG (12/11/2024 12:08 PM EDT) Pathologist [facility] Varicella Zoster Virus Antibody 32.50 S/CO 12/12/2024 4:28 AM EDT [employer] [facility] Comment: Signal to Cut-off S/CO Interpretation [...] EDT 12/11/2024 12:24 PM EDT Narrative [facility] - 12/12/2024 4:28 AM EDT [facility] Received Date:[id number] Franklin Flowers MD LAB BLOOD ORDERABLES [place] Result [facility] [address], [place] [address], [place] [phone] [facility] [address] [facility], [place] [address], [place] [phone] * (ABNORMAL) BUN (12/11/2024 12:08 PM EDT) BUN 41(H) 7 - 23 mg/dL 12/11/2024 12:59 PM EDT [email or web address] Blood Structure of peripheral vein / Unknown Venipuncture / Unknown 12/11/2024 12:08 PM EDT 12/11/2024 12:26 PM EDT Franklin Flowers MD LAB BLOOD ORDERABLES [place] Result [email or web address] [address] [place] [address], [place] * ALT (12/11/2024 12:08 PM EDT) ALT 20 10 - 40 U/L 12/11/2024 12:59 PM EDT [facility] Blood Structure of peripheral vein / Unknown Venipuncture / Unknown 12/11/2024 12:08 PM EDT 12/11/2024 12:26 PM EDT Franklin Flowers MD LAB BLOOD ORDERABLES [place] Result [facility] [address] [place] [address], * AST (12/11/2024 12:08 PM EDT) AST 30 10 - 40 U/L 12/11/2024 12:59 PM EDT [email or web address] Blood Structure of peripheral vein / Unknown Venipuncture / Unknown 12/11/2024 12:08 PM EDT 12/11/2024 12:26 PM EDT Franklin Flowers MD LAB BLOOD ORDERABLES [place] Result Performing Organization Address [facility] Co de Phone Number [facility] [address] [place] [address], [place] * Phosphorus (12/11/2024 12:08 PM EDT) Phosphorus 3.4 2.5 - 4.5 mg/dL 12/11/2024 12:59 PM EDT [facility] Blood Structure of peripheral vein / Unknown Venipuncture / Unknown 12/11/2024 12:08 PM EDT 12/11/2024 12:26 PM EDT Franklin Flowers MD LAB BLOOD ORDERABLES [place] Result [facility] [address] [place] [address], [place] * (ABNORMAL) Creatinine (12/11/2024 12:08 PM EDT) Creatinine 3.06(H) 0.50 - 1.20 mg/dL 12/11/2024 12:59 PM EDT [facility] LABORATORY eGFR 17(L) >=60 mL/min/1 .73m2 12/11/2024 12:[address] [facility]TriondPRE[facility] [employer] CLINICAL PATHOLOGY LABORATORY Comment:The estimated glomer ular [...] Organization Address [facility]/ZIP Co de Phone Number [facility] CLINICAL PATHOLOGY LABORATORY [address] [place] [address], [place] * (ABNORMAL) Calcium (12/11/2024 12:08 PM EDT) Calcium 10.7(H) 8.6 - 10.5 mg/dL 12/11/2024 12:59 PM EDT [facility] CLINICAL PATHOLOGY LABORATORY Blood Structure of peripheral vein / Unknown Venipuncture / Unknown 12/11/2024 12:08 PM EDT 12/11/2024 12:26 PM EDT Franklin Flowers MD LAB BLOOD ORDERABLES [place] Result Performing Organization Address City/[facility]/ZIP Co de Phone Number [facility]ITALTriondPRE[facility] CLINICAL PATHOLOGY LABORATORY [address] [place] [address], [place] * Bilirubin, Direct (12/11/2024 12:08 PM EDT) Bilirubin, Direct 0.2 <=0.4 mg/dL 12/11/2024 12:59 PM EDT [facility] CLINICAL PATHOLOGY LABORATORY Blood Structure of peripheral vein / Unknown Venipuncture / Unknown 12/11/2024 12:08 PM EDT 12/11/2024 12:26 PM EDT Franklin Flowers MD LAB BLOOD ORDERABLES [place] Result Performing Organization Address City/[facility]/ZIP Co de Phone Number [employer] CLINICAL PATHOLOGY LABORATORY [address] [place] [id number], [place] * Bilirubin, Total (12/11/2024 12:08 PM EDT) Bilirubin, Total 0.5 0.2 - 1.2 mg/dL 12/11/2024 12:59 PM EDT [email or web address] CLINICAL PATHOLOGY LABORATORY Blood Structure of peripheral vein / Unknown Venipuncture / Unknown 12/11/2024 12:08 PM EDT 12/11/2024 12:26 PM EDT Franklin Flowers MD LAB BLOOD ORDERABLES [place] Result Performing Organization Address City/[facility]/ZIP Co de Phone Number [email or web address] CLINICAL PATHOLOGY LABORATORY [address] [place] [address], [place] * Albumin (12/11/2024 12:08 PM EDT) Albumin 4.2 3.5 - 5.2 g/dL 12/11/2024 12:59 PM EDT [facility] Blood Structure of peripheral vein / Unknown Venipuncture / Unknown 12/11/2024 12:08 PM EDT 12/11/2024 12:26 PM EDT Franklin Flowers MD LAB BLOOD ORDERABLES [place] Result [email or web address] CLINICAL PATHOLOGY LABORATORY [address] [place] [address], [place] * (ABNORMAL) Microalbumin, Random Urine with Creatinine (08/07/2023 9:01 AM EST) Creatinine, Random Urine 92 20 - 275 mg/dL 08/08/2023 6:45 PM EST [facility] Microalbumin 150.8 mg/dL 08/08/2023 6:45 PM EST [employer] [facility] Comment: Verified by repeat analysis. Reference Range Not established Microalbumin/Crea tinine Ratio, Random Urine 1,639(H) <30 mcg/mg creat 08/08/2023 6:45 PM EST [employer] [facility] Comment: The ADA defines abnormalities in [...] ORDERABLES Final Resul t [facility] [address] [facility] [address], [place] [address], [employer] [facility] [address] [place] [address] * (ABNORMAL) Vitamin D, 25-Hydroxy, Total, Immunoassay (06/05/2023 11:53 AM EDT) Calcidiol+ercalc idiol 22(L) 30 - 100 ng/mL 06/05/2023 9:28 PM EDT [employer] Comment: Vitamin D Status 25-OH Vitamin D: Deficiency: <20 ng/mL Insufficiency: 20 - 29 ng/mL Optimal: > or = 30 ng/mL For 25-OH Vitamin D testing on patients on D2-supplementation and patients for whom quantitation of D2 and D3 fractions is required, the QuestAssureD(TM) 25-OH VIT D, (D2,D3), LC/MS/MS is recommended: order code 06270 (patients >2yrs). See Note 1 Note 1 For additional information, please refer to http://education.Cor[employer]ateWorld/faq/TFX333 (This link is being provided for informational/ educational purposes only.) Blood Structure of peripheral vein / Unknown 06/05/2023 11:53 AM EDT 06/05/2023 7:56 PM EDT Narrative [facility] - 06/09/2023 5:04 AM EDT FASTING:NO [facility] LAB BLOOD ORDERABLES Final Resul t Performing Organization Address [facility] de Phone Number [facility] [address], [place] [address], [place] [phone] [facility] [address] [address] * (ABNORMAL) PTH, Intact (without Calcium) (06/05/2023 11:53 AM EDT) Parathyroid Hormone, Intact 205(H) 16 - 77 pg/mL 06/06/2023 1:16 AM EDT [facility] Comment: Interpretive Guide Intact PTH Calcium ------- Normal Parathyroid Normal Normal Hypoparathyroidism Low or Low Normal Low Hyperparathyroidism Primary Normal or High High Secondary High Normal or Low Tertiary High High Non-Parathyroid Hypercalcemia Low or Low Normal High Blood Structure of peripheral vein / Unknown 06/05/2023 11:53 AM EDT 06/05/2023 11:02 PM EDT Narrative [facility] - 06/09/2023 5:04 AM EDT FASTING:NO [employer] LAB BLOOD ORDERABLES Final Resul t Performing Organization Address [facility] de Phone Number [facility] [address], [place] [address], [place] [phone] [facility] [address] [address] * (ABNORMAL) Renal Function Panel (06/05/2023 11:53 AM EDT) [facility] Glucose 89 65 - 139 mg/dL 06/05/2023 10:49 PM EDT [facility] Comment: Non-fasting reference interval BUN 39(H) 7 - 25 mg/dL 06/05/2023 10:49 PM EDT [facility] Creatinine 2.61(H) 0.50 - 1.03 mg/dL 06/05/2023 10:49 PM EDT [facility] eGFR 21(L) > OR = 60 mL/min/1. 73m2 06/05/2023 10:49 PM EDT [facility] Bun/Creatinine Ratio 15 6 - 22 (calc) 06/05/2023 10:49 PM EDT [facility] Sodium 137 135 - 146 mmol/L 06/05/2023 10:49 PM EDT [facility] Potassium 4.6 3.5 - 5.3 mmol/L 06/05/2023 10:49 PM EDT [facility] Chloride 111(H) 98 - 110 mmol/L 06/05/2023 10:49 PM EDT [facility] Carbon Dioxide 18(L) 20 - 32 mmol/L 06/05/2023 10:49 PM EDT [facility] Calcium 9.8 8.6 - 10.4 mg/dL 06/05/2023 10:49 PM EDT [facility] Phosphate 3.5 2.5 - 4.5 mg/dL 06/05/2023 10:49 PM EDT [facility] Albumin 4.0 3.6 - 5.1 g/dL 06/05/2023 10:49 PM EDT [facility] Blood Structure of peripheral vein / Unknown 06/05/2023 11:53 AM EDT 06/05/2023 7:56 PM EDT Narrative [facility] - 06/09/2023 5:04 AM EDT FASTING:NO us Anupama Bynum DO LAB BLOOD ORDERABLES Final Resul t [facility] [address] [facility] [address], [place] [address], [facility] [address] [place] [address] from Last 3 Months or Most Recently Relevant to Health Maintenance Insurance * Guarantor: Aneta Gan Account Type Relation to Patient Date of Phone Billing Address Personal/Family Self 1965 [phone] (Work) [address] [place] [address] [facility] * Guarantor: Aneta Gan Account Type Relation to Patient Date of Phone Billing Address Transplant Self 1965 [phone] (Work) [address] [place] [address] [facility] Advance Directives Documents on File Type Date Recorded 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
--- OUTSIDE RECORDS SUMMARY | 2025-03-02 15:47 | XMS_ITS | Encounter Summary ---
Author Organization [facility] Address [address] [place] [address] Phone Care Team Providers Care Poultry Scalder Name Role Phone Unavailable Primary Care Provider Unavailabl e Encounter Details Date Type Department Care Team (Late st Contact Info) Description 08/10/2022 Telephone [facility] [address] [place] [address] Roe Morrissey MD Social History [...] Iris Gee - 08/10/2022 10:19 AM EST [facility] insurance verification called, pt will need a PA for her truxima infusion that is scheduled for tomorrow. This will need to go through [facility]. documented in this encounter Plan of [...] EDT) Calcium 9.1 8.4 - 10.2 mg/dL [facility] 11/06/2022 4:20 PM EDT 11/06/2022 4:20 PM EDT Roe Morrissey MD LAB BLOOD ORDERABLES Final Res ult [place] * (ABNORMAL) Creatinine (11/06/2022 4:20 PM EDT) Creatinine Serum 2.59(H) 0.5 - 1.4 mg/dL [facility] eGFR (Calc) 19 [facility] Comment: NOTE: For -Dominican individuals, multiply the result by 1.210. Chronic Kidney Disease: Estimated GFR < 60 mL/min/1.73m2 Severe Kidney Disease: Estimated GFR < 15 mL/min/1.73m2 11/06/2022 4:20 PM EDT 11/06/2022 4:20 PM EDT Roe Morrissey MD LAB BLOOD ORDERABLES Final Res ult Performing Organization Address City/[facility]/ZIP Co de Phone Number [place] * (ABNORMAL) BUN (11/06/2022 4:20 PM EDT) BUN 44(H) 9 - 16 mg/dL [facility] 11/06/2022 4:20 PM EDT 11/06/2022 4:20 PM [...]
--- OUTSIDE RECORDS SUMMARY | 2025-03-02 15:47 | XMS_ITS | Clinical Summary ---
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
== END 2025-03-02 15:46 | disposition home or self-care (01) ==
LOC: HO.HKA 15:28
PROVIDERS: PCP Physician Assistant; Visit Provider Internal Medicine Hypertension Specialist
DX: N18.4 Chronic kidney disease, stage 4 (severe) (principal); M32.14 Glomerular disease in systemic lupus erythematosus
CPT/HCPCS: 99214

== ENCOUNTER 2025-03-04 15:23 | Outpatient (AMB) | payer OTHER, MEDICAID, SELFPAY ==
--- NOTE | 2025-03-04 15:29 | MHC.OFFVISCO ---
Intake Intake Visit Reasons: Anticoagulation Allergies rituximab (From Rituxan) Allergy (Severe, Verified 03/04/25 15:26) Anaphylaxis cephalexin (From Keflex) Allergy (Unknown, Verified 03/04/25 15:26) RED+ITCHY,RASH Cephalosporins (CEPHALOSPORINS) Allergy (Unknown, Verified 03/04/25 15:26) RED+ITCHY Sulfa (Sulfonamide Antibiotics) (SULFA(SULFONAMIDE ANTIBIOTICS)) Allergy (Unknown, Verified 03/04/25 15:26) RED+ITCHY mycophenolate mofetil (From CellCept) Adverse Reaction (Intermediate, Verified 03/04/25 15:26) rash cellcept Allergy (Severe, Uncoded 03/04/25 15:26) Hives retuxin Adverse Reaction (Severe, Uncoded 03/04/25 15:26) Abdominal Pain Medication List - Last Reconciled 03/04/25 by Shana Allen RN atorvastatin 20 mg PO BEDTIME 30 days calcitriol 0.25 mcg PO DAILY clobetasol 0.05% 1 appl topical DAILY fluocinonide 0.05% appl topical gabapentin 200 mg PO DAILY PRN levothyroxine 100 mcg PO DAILY lisinopril 2.5 mg PO DAILY loratadine 10 mg PO DAILY PRN magnesium oxide 250 mg PO BID prednisone 2.5 mg PO DAILY sodium bicarbonate 650 mg PO BID warfarin 5 mg See Protocol PO DAILY Nursing Note INR 3.5-?? out of therapeutic range2-3 Medications and supplements reviewed Patient status: increased stress at work, drinking dandelion tea Medications or supplements: no changes Diet: same Denies any signs and symptoms of bleeding or clotting or unusual bruising Bleeding, bruising, clotting discussed Nutritional guidance given: eat greens to lower Dose: already took warfarin today, hold half dose tomm then cont 2.5mg x 6, 5mg x 1 F/U INR Date : 2 weeks? Patient verbalizing understanding of instructions given. Anti-Coag Initial Assessment Social Hx Patient Tobacco Use Status: Former Tobacco user Tobacco use type: Cigarette alcohol intake: former Alcohol intake frequency: does not drink Coding Level of Care Code Est Patient Level 1 Diagnoses Current use of anticoagulant therapy Z79.01 Results AMB INR Fingerstick AMB INR Fingerstick 3.5 Last Edit by Shana Allen RN on 03/04/25 15:33 Assessment & Plan Assessment & Plan (1) Current use of anticoagulant therapy: Code(s): Z79.01 - intermediate (current) use of anticoagulants Category: Medical
--- OUTSIDE RECORDS SUMMARY | 2025-03-04 16:03 | XMS_ITS | Encounter Summary ---
Author Organization [facility] Address [address] [place] [address] Phone Care Team Providers Care Oven Operator Name Role Phone Unavailable Primary Care Provider Unavailabl e Encounter Details Date Type Department Care Team (Late st Contact Info) Description 08/10/2022 Telephone [facility] [address] [place] [address] Roe Morrissey MD Social History [...] Iris Gee - 08/10/2022 10:19 AM EST [facility] insurance verification called, pt will need a PA for her truxima infusion that is scheduled for tomorrow. This will need to go through [facility]. documented in this encounter Plan of [...] EDT) Calcium 9.1 8.4 - 10.2 mg/dL [facility] 11/06/2022 4:20 PM EDT 11/06/2022 4:20 PM EDT Roe Morrissey MD LAB BLOOD ORDERABLES Final Res ult [place] * (ABNORMAL) Creatinine (11/06/2022 4:20 PM EDT) Creatinine Serum 2.59(H) 0.5 - 1.4 mg/dL [facility] eGFR (Calc) 19 ADRIAN Comment: NOTE: For -Chilean individuals, multiply the result by 1.210. Chronic Kidney Disease: Estimated GFR < 60 mL/min/1.73m2 Severe Kidney Disease: Estimated GFR < 15 mL/min/1.73m2 11/06/2022 4:20 PM EDT 11/06/2022 4:20 PM EDT Roe Morrissey MD LAB BLOOD ORDERABLES Final Res ult Performing Organization Address City/[facility]/ZIP Co de Phone Number [place] * (ABNORMAL) BUN (11/06/2022 4:20 PM EDT) BUN 44(H) 9 - 16 mg/dL M[facility] 11/06/2022 4:20 PM EDT 11/06/2022 4:20 PM [...]
--- OUTSIDE RECORDS SUMMARY | 2025-03-04 16:03 | XMS_ITS | Clinical Summary ---
Author Organization [facility] Address [address] [place] [address] Care Team Providers Care Requirements Manager Name Role Phone Franklin Sanchez Primary Care Provider [phone] Allergies Active Allergy Reactions Criticality Noted Date [...] propionate (FLONASE) 50 mcg/actuation nasal spray SMARTSI Crane(s) Both Nares Twice Daily 5 Active sodium bicarbonate 650 mg tablet SMARTSI Tablet(s) By Mouth Twice Daily 5 Active predniSONE (DELTASONE) 2.5 mg tablet 5 Active Active Problems No known active problems Encounters Date Type Department Care Team Description 02/18/2025 Orders Only [facility] Transplant Department [address] [place] [address] Zenobia Zepeda, RN Pre-transplant evaluation for end stage renal disease (Primary Dx); Chronic kidney disease, stage IV (severe) (HCC) 02/18/2025 Documentation [facility] [address] [place] [address] Seema Arredondo, PRIYANK ABO Dual Validation 02/18/2025 Orders Only [facility] [address] [place] [address] Zenobia Zepeda, RN 02/12/2025 Telephone [facility] Trans[facility] Department [address] [place] [address] Zenobia Zepeda, wireworker supervisor - Kidney Txp 01/12/2025 Orders Only External Imaging [address] [place] [address] Radiology, External 01/12/2025 Orders Only External Imaging [address] [place] [address] Radiology, External 12/18/2024 Telephone [facility] [address] [place] [address] Zenobia Zepeda, RN 12/12/2024 Telephone [facility] [address] [place] [address] Linh Patel RN 12/12/2024 Documentation [facility] [address] [place] [address] Delores Sepulveda LICSW 12/11/2024 12:00 PM EDT Lab [facility] Draw Site [address] [place] [address] Pre-transplant evaluation for end stage renal disease; Chronic kidney disease, stage IV (severe) (HCC) 12/11/2024 10:15 AM EDT Office Visit [facility] Renal Transplant [address] [place] [address] Franklin Flowers MD Pre-transplant evaluation for kidney transplant (Primary Dx); Pre-transplant evaluation for end stage renal disease; Stage 5 chronic kidney disease not on chronic dialysis (HCC) 12/11/2024 9:30 AM EDT Social Work [facility] Renal Transplant [address] [place] [address] Delores Sepulveda LICSW 12/11/2024 8:30 AM EDT Evaluation [facility] Renal Transplant [address] [place] [address] Zenobia Zepeda, PRIYANK Pre-transplant evaluation for kidney transplant (Primary Dx); ESRD (end stage renal disease) (HCC) 12/11/2024 8:00 AM EDT Office Visit [facility] Renal Transplant [address] [place] [address] Evon Sierra LPN Pre-transplant evaluation for kidney transplant (Primary Dx) 12/08/2024 Telephone [facility] Transplant Department [address] [place] [address] Zenobia Zepeda RN 12/04/2024 Orders Only [facility] Transplant Department [address] [place] [address] Zenobia Zepeda, PRIYANK Pre-transplant evaluation for end stage renal disease (Primary Dx); Chronic kidney disease, stage IV (severe) ([facility]) from Last 3 Months Family History Medical [...] Info) Description 12/08/2025 8:20 AM EDT Follow-Up [facility] Renal Transplant [address] [place] [address] Franklin Flowers MD [address] [place] [address] 12/08/2025 9:00 AM EDT Social Work [facility] Renal Transplant [address] [place] [address] Delores Sepulveda LICSW [address] [place] [address] Health Maintenance Due Date Last Done Comments [...] Completed 12/11/2024 Procedures * Due to [place] state law, this organization might not be [...] IV (severe) (HCC) QUANTIFERON-TB GOLD PLUS, 1 [id number] Routine 12/11/2024 12:08 PM EDT Pre-transplant evaluation for end stage renal disease Chronic kidney disease, stage IV (severe) (HCC) RPR (DIAGNOSIS) W/REFLEX TO TITER & TPPA [id number] Routine 12/11/2024 12:08 PM EDT Pre-transplant evaluation for end stage renal disease Chronic kidney disease, stage IV (severe) (HCC) VARICELLA ZOSTER ANTIBODY, IGG Routine 12/11/2024 12:08 PM EDT Pre-transplant evaluation for end stage renal disease Chronic kidney disease, stage IV (severe) (HCC) HLA TRANSPLANT WORK-UP (ALLELE LEVEL A/B/C/DRB1/HRC754/DQA 1/DQB1/DPA1/DPB1) Routine 12/11/2024 12:08 PM EDT Pre-transplant [...] Health Maintenance Results * Due to [place] state law, this organization might not be sharing negative HIV tests. * TYPE AND SCREEN - TRANSPLANT MANUAL ABSTRACTION (02/12/2025 4:03 PM EDT) ABO AB [facility] RH Positive [facility] 02/12/2025 4:03 PM EDT us Unknown Provider MD LAB HISTORICAL RESULTS Final Result [facility] [address] [place] [address] * Echo Outside Films (01/29/2025 11:36 AM EDT) Narrative 01/29/2025 11:36 AM EDT This order has been auto-finalized and does not contain a result. us External Radiology CV ECHO PROCEDURES Final Resu lt * HLA Transplan Work-Up(Allele Level A/B/C/DRB1/XAF708/DQA1/DQB1/DPA1/DPB1) (12/11/2024 12:08 PM EDT) Histocompatibility Laboratory Information See Below 12/16/2024 4:30 PM EDT [facility] Comment: SUNI: [id number] Director: Hussein Olivo MD. [facility] PFI: [id number] UNOS: [id number] This test [...] testing. C*-1 C*04:01 12/16/2024 4:30 PM EDT [facility] C*-2 DATA NOT REPORTED [...] [facility] [address] Rm: [id number] [place] [address], * MMR Panel, IgG (12/11/2024 12:08 PM EDT) Pathologist [facility] Measles Antibody (IgG), Immune Status >300.00 AU/mL 12/11/2024 9:31 PM EDT [facility] Comment: AU/mL Interpretation ----- <13.50 Not consistent with immunity 13.50-16.49 Equivocal >16.49 Consistent with immunity The presence of measles IgG suggests immunization or past or current infection with measles virus. For additional information, please refer to http://MiFi.MarketBrief/faq/ZLI871 (This link is being provided for informational/ educational purposes only.) Mumps Antibody (IgG), Immune Status 114.00 AU/mL 12/11/2024 9:31 PM EDT [facility] Comment: AU/mL Interpretation ------- <9.00 Not consistent with immunity 9.00-10.99 Equivocal >10.99 Consistent with immunity The presence of mumps IgG antibody suggests immunization or past or current infection with mumps virus. Rubella Antibody (IgG), Immune Status 20.40 Index 12/11/2024 9:31 PM EDT [facility] Comment: Index Interpretation ----- <0.90 Not consistent with immunity 0.90-0.99 Equivocal > or = 1.00 Consistent with immunity The presence of rubella IgG antibody suggests immunization or past or current infection with rubella virus. Blood Structure of peripheral vein / Unknown Venipuncture / Unknown 12/11/2024 12:08 PM EDT 12/11/2024 12:23 PM EDT Narrative [facility] - 12/11/2024 9:31 PM EDT [facility] Received Date: us Franklin Flowers MD LAB BLOOD ORDERABLES [place] Result [facility] [address], [place] [address], [facility] [address], [place] [address], * (ABNORMAL) Herpes Simplex Virus 1&2, IgG (12/11/2024 12:08 PM EDT) Pathologist [facility] HSV 1 IgG Type Specific Ab 44.60(H) index 12/12/2024 4:21 AM EDT [facility] HSV 2 IgG Type Specific Ab 14.90(H) index 12/12/2024 4:21 AM EDT [facility] Comment: Index Interpretation ----- <0.90 Negative [...] screening. For additional information, please refer to http://education.MarketBrief/faq/NNB847 (This link is being provided for informational/ educational purposes only.) Blood Structure of peripheral vein / Unknown Venipuncture / Unknown 12/11/2024 12:08 PM EDT 12/11/2024 12:24 PM EDT Narrative [facility] - 12/12/2024 4:21 AM EDT [facility] Received Date:[id number] Franklin Flowers MD LAB BLOOD ORDERABLES [place] Result [facility] [address], [place] [address], [facility] [address], [place] [address], * RPR (Diagnosis) w/Reflex to Titer & TPPA Confirm (12/11/2024 12:08 PM EDT) Pathologist [facility] RPR W/Refl Titer NON-REACT MARSHALL NON-REACT MARSHALL 12/12/2024 11:54 AM EDT [facility] Blood Structure of peripheral vein / Unknown Venipuncture / Unknown 12/11/2024 12:08 PM EDT 12/11/2024 12:24 PM EDT Narrative [facility] - 12/12/2024 11:54 AM EDT [facility] Received Date: Franklin Flowers MD LAB BLOOD ORDERABLES [place] Result [facility] 200 [facility] [address]rd Floor, [place] [address], [employer] [facility] 200 [facility] [address]rd Floor, [place] [address], * QuantiFERON-TB Gold Plus, 1 Tube (12/11/2024 12:08 PM EDT) [facility] QuantiFERON-TB Gold Plus NEGATIVE NEGATIVE 12/14/2024 2:16 AM EDT [facility] Comment: Negative test result. M. tuberculosis complex infection unlikely. NIL 0.03 IU/mL 12/14/2024 2:16 AM EDT [facility] Mitogen-NIL 9.50 IU/mL 12/14/2024 2:16 AM EDT [facility] TB1-NIL 0.02 IU/mL 12/14/2024 2:16 AM EDT [facility] TB2-NIL 0.01 IU/mL 12/14/2024 2:16 AM EDT [facility] Comment: The Nil tube value reflects the [...] T-lymphocytes. For additional information, please refer to https://education.Akeneo/faq/YVV763 (This link is being provided for informational/ educational purposes only.) Blood Structure of peripheral vein / Unknown Venipuncture / Unknown 12/11/2024 12:08 PM EDT 12/11/2024 12:22 PM EDT [facility] [place] - 12/14/2024 2:16 AM EDT [facility] Received Date: Franklni Flowers MD LAB BLOOD ORDERABLES [place] Result [facility] 200 [facility] [address]rd Floor, [place] [address], [place] [phone] [facility] 200 [facility] [address]rd Floor, [place] [address], [place] [phone] * (ABNORMAL) CBC Auto Differential (12/11/2024 12:08 PM EDT) WBC 6.6 3.8 - 10.8 10*3/uL 12/11/2024 12:32 PM EDT [facility] RBC 3.52(L) 3.80 - 5.10 10*6/uL 12/11/2024 12:32 PM EDT [facility] Hemoglobin 10.4(L) 11.7 - 15.5 g/dL 12/11/2024 12:32 PM EDT [facility] Hematocrit 33.1(L) 35.0 - 45.0 % 12/11/2024 12:32 PM EDT [facility] MCV 94.0 80.0 - 100.0 fL 12/11/2024 12:32 PM EDT [facility] MCH 29.5 27.0 - 33.0 pg 12/11/2024 12:32 PM EDT [facility] MCHC 31.4(L) 32.0 - 36.0 g/dL 12/11/2024 12:32 PM EDT [facility] RDW 13.3 11.0 - 15.0 % 12/11/2024 12:32 PM EDT [facility] Platelets 289 140 - 400 10*3/uL 12/11/2024 12:32 PM EDT [facility] MPV 10.4 7.5 - 12.5 fL 12/11/2024 12:32 PM EDT [facility] Neutrophil % 58.9 % 12/11/2024 12:32 PM EDT [facility] Immature Grans % 0.5 0.0 - 0.9 % 12/11/2024 12:32 PM EDT [facility] Lymphocyte % 30.5 % 12/11/2024 12:32 PM EDT [facility] Monocyte % 5.8 % 12/11/2024 12:32 PM EDT [facility] Eosinophil % 3.8 % 12/11/2024 12:32 PM EDT [facility] Basophil % 0.5 % 12/11/2024 12:32 PM EDT [facility] Neutrophil # 3.86 1.50 - 7.80 10*3/uL 12/11/2024 12:32 PM EDT [facility] Immature Grans # 0.03 <=0.03 10*3/uL 12/11/2024 12:32 PM EDT [facility] Lymphocyte # 2.00 0.85 - 3.90 10*3/uL 12/11/2024 12:32 PM EDT [facility] Monocyte # 0.40 0.20 - 0.95 10*3/uL 12/11/2024 12:32 PM EDT [facility] Eosinophil # 0.30 0.02 - 0.50 10*3/uL 12/11/2024 12:32 PM EDT [facility] Basophil # <0.03 0.00 - 0.20 10*3/uL 12/11/2024 12:32 PM EDT [facility] nRBC % 0.0 /100 WBCs 12/11/2024 12:32 PM EDT [facility] nRBC # <0.01 <0.01 10*3/uL 12/11/2024 12:32 PM EDT [facility] Blood Structure of peripheral vein / Unknown Venipuncture / Unknown 12/11/2024 12:08 PM EDT 12/11/2024 12:24 PM EDT us Franklin Flowers MD LAB BLOOD ORDERABLES [place] Result [facility] [address] [place] [address], * (ABNORMAL) Timo-Lee Virus VCA Antibody Panel (12/11/2024 12:08 PM EDT) EBV Viral Capsid Ag Ab (IGM) <36.00 U/mL 12/12/2024 4:20 AM EDT [facility] Comment: U/mL Interpretation ---- <36.00 Negative 36.00-43.99 Equivocal >43.99 Positive EBV Viral Capsid Ag Ab (IGG) 386.00(H) U/mL 12/12/2024 4:20 AM EDT [facility] Comment: U/mL Interpretation ---- <18.00 Negative 18.00-21.99 Equivocal >21.99 Positive EBV Nuclear Ag Ab >600.00(H) U/mL 025 4:20 AM EDT [facility] Comment: U/mL Interpretation ---- <18.00 Negative 18.00-21.99 Equivocal >21.99 Positive Interpretation: See Comments 12/12/2024 4:20 AM EDT [facility] Comment: Suggestive of a past Timo-Lee virus infection. In infants, a similar pattern may occur as a result of passive maternal transfer of antibody. Blood Structure of peripheral vein / Unknown Venipuncture / Unknown 12/11/2024 12:08 PM EDT 12/11/2024 12:23 PM EDT Narrative [facility] - 12/12/2024 4:20 AM EDT [facility] Received Date: Franklin Flowers MD LAB BLOOD ORDERABLES [place] Result [facility] 200 [facility] [address]rd Floor, [place] [address], [employer] [facility] 200 [facility] 3rd Floor, [place] [address], * Hepatitis C Antibody w/Reflex to PCR (12/11/2024 12:08 PM EDT) Hepatitis C Antibody NON-REACT MARSHALL NON-REACT MARSHALL 12/12/2024 6:33 AM EDT [facility] Comment: HCV antibody was non-reactive. There is no laboratory evidence of HCV infection. In most cases, no further action is required. However, if recent HCV exposure is suspected, a test for HCV RNA (test code 12343) is suggested. For additional information please refer to http://education.Akeneo/faq/DGA98t5 (This link is being provided for informational/ educational purposes only.) Blood Structure of peripheral vein / Unknown Venipuncture / Unknown 12/11/2024 12:08 PM EDT 12/11/2024 12:23 PM EDT Narrative [facility] - 12/12/2024 6:33 AM EDT [facility] Received Date: us Franklin Flowers MD LAB BLOOD ORDERABLES [place] Result [facility] [address], [address] [facility] [place] [address], [place] [phone] [facility] [address], [place] [address], [place] [phone] * (ABNORMAL) Hepatitis A Antibody, Total (12/11/2024 12:08 PM EDT) Hepatitis A Ab, Total REACTIVE( A) NON-REACT MARSHALL 12/12/2024 5:23 AM EDT [facility] Comment: For additional information, please refer to http://MiFi.Akeneo/faq/LIX689 (This link is being provided for informational/ educational purposes only.) Blood Structure of peripheral vein / Unknown Venipuncture / Unknown 12/11/2024 12:08 PM EDT 12/11/2024 12:23 PM EDT Narrative [facility] - 12/12/2024 5:23 AM EDT [facility] Received Date:[id number] us Franklin Flowers MD LAB BLOOD ORDERABLES [place] Result [facility] [address], [address] [facility] [place] [address], [place] [phone] [facility] [address], [place] [address], [place] [phone] * Hepatitis B Core Antibody, Total (12/11/2024 12:08 PM EDT) Hepatitis B Core Ab Total NON-REACT MARSHALL NON-REACT MARSHALL 12/11/2024 9:08 PM EDT [employer] [facility] Comment: For additional information, please refer to http://education.Akeneo/faq/SGX830 (This link is being provided for informational/ educational purposes only.) Blood Structure of peripheral vein / Unknown Venipuncture / Unknown 12/11/2024 12:08 PM EDT 12/11/2024 12:24 PM EDT Narrative [facility] - 12/11/2024 9:08 PM EDT [facility] Received Date: Franklin Flowers MD LAB BLOOD ORDERABLES [place] Result [facility] [address] [facility] [address]rd Floor, [place] [address], [place] [phone] [facility] [address] [facility], [place] [address], [place] [phone] * ABO/Rh Blood Type (12/11/2024 12:08 PM EDT) Pathologist [facility] ABO Blood Type AB 12/11/2024 1:50 PM EDT [facility] RH Type Positive 12/11/2024 1:50 PM EDT [facility] Blood Structure of peripheral vein / Unknown Venipuncture / Unknown 12/11/2024 12:08 PM EDT 12/11/2024 1:04 PM EDT Franklin Flowers MD LAB BLOOD BANK TEST ORDER HENRY Final Result [facility] [address] [place] [address], [place] [phone] * (ABNORMAL) Hepatitis B Surface Antibody (12/11/2024 12:08 PM EDT) Hepatitis B Surface Ab Immunity, Qn <5(L) > OR = 10 mIU/mL 12/12/2024 4:47 AM EDT [facility] Comment: PATIENT DOES NOT HAVE IMMUNITY TO HEPATITIS B VIRUS. For additional information, please refer to http://education.Akeneo/faq/XWU083 (This link is being provided for informational/ educational purposes only). Blood Structure of peripheral vein / Unknown Venipuncture / Unknown 12/11/2024 12:08 PM EDT 12/11/2024 12:23 PM EDT Narrative [facility] - 12/12/2024 4:47 AM EDT [facility] Received Date: Franklin Flowers MD LAB BLOOD ORDERABLES [place] Result [facility] [address] [facility] [address]rd Floor, [place] [address], [place] [phone] [facility] [address], [place] [address], [place] [phone] * Hepatitis B Surface Antigen w/Confirmation (12/11/2024 12:08 PM EDT) Hepatitis B Surface Antigen NON-REACT MARSHALL NON-REACT MARSHALL 12/11/2024 9:08 PM EDT [facility] Comment: For additional information, please refer to http://MiFi.Akeneo/faq/BMJ090 (This link is being provided for informational/ educational purposes only.) Blood Structure of peripheral vein / Unknown Venipuncture / Unknown 12/11/2024 12:08 PM EDT 12/11/2024 12:23 PM EDT Narrative [facility] - 12/11/2024 9:08 PM EDT [facility] Received Date: Franklin Flowers MD LAB BLOOD ORDERABLES [place] Result [facility] [place] 200 [facility] 3rd Floor, [place] [address], [place] [phone] [facility] 200 [facility] [address]rd Floor, [place] [address], [place] [phone] * (ABNORMAL) Cytomegalovirus Antibody, IgG (12/11/2024 12:08 PM EDT) [facility] Cytomegalovirus Antibody (IgG) >10.00(H ) U/mL 12/11/2024 9:30 PM EDT [facility] Comment: U/mL Interpretation ----- <0.60 Negative 0.60-0.69 Equivocal > or = 0.70 Positive A positive result indicates that the patient has antibody to CMV. It does not differentiate between an active or past infection. Blood Structure of peripheral vein / Unknown Venipuncture / Unknown 12/11/2024 12:08 PM EDT 12/11/2024 12:23 PM EDT Narrative [facility] 12/11/2024 9:30 PM EDT [facility] Received Date: us Franklin Flowers MD LAB BLOOD ORDERABLES [place] Result [address], [place] [address], [place] [phone] [facility] [address], [place] [address], [place] [phone] * (ABNORMAL) PTT (12/11/2024 12:08 PM EDT) [facility] aPTT 36.4(H) 23.0 - 32.0 Seconds 12/11/2024 12:48 PM EDT [facility] Comment: Current PTT reagent is not sensitive to detect all Lupus Anticoagulant (LA) Inhibitor Cases. If a LA is suspected, please order a Lupus Anticoagulation w/ Reflex Test which is performed at [facility] in [place], [place]. Blood Structure of peripheral vein / Unknown Venipuncture / Unknown 12/11/2024 12:08 PM EDT 12/11/2024 12:24 PM EDT us Franklin Flowers MD LAB BLOOD ORDERABLES [place] Result Performing Organization Address [facility] de Phone Number [facility] [address] [place] [address], * (ABNORMAL) Protime-INR (12/11/2024 12:08 PM EDT) PT 23.5(H) 9.6 - 12.4 Seconds 12/11/2024 12:48 PM EDT [facility] INR 2.3 0.9 - 1.1 12/11/2024 12:48 PM EDT [facility] Comment:The optimal therapeu tic INR range for patients treated with Vitamin K antagonists (VKAS, e.g., Warfarin) is 2.0 to 3.5. Discuss the desired range with your doctor/care team. Blood Structure of peripheral vein / Unknown Venipuncture / Unknown 12/11/2024 12:08 PM EDT 12/11/2024 12:24 PM EDT Franklin Flowers MD LAB BLOOD ORDERABLES [place] Result Performing Organization Address [facility] de Phone Number [facility] [address] [place] [address], * Varicella Zoster Antibody, IgG (12/11/2024 12:08 PM EDT) Pathologist [facility] Varicella Zoster Virus Antibody 32.50 S/CO 12/12/2024 4:28 AM EDT [employer] [facility] Comment: Signal to Cut-off [...] EDT 12/11/2024 12:24 PM EDT Narrative [facility] - 12/12/2024 4:28 AM EDT [facility] Received Date:[id number] Franklin Flowers MD LAB BLOOD ORDERABLES [place] Result [facility] [address], [place] [address], [place] [phone] [facility] [address] [facility], [place] [address], [place] [phone] * (ABNORMAL) BUN (12/11/2024 12:08 PM EDT) BUN 41(H) 7 - 23 mg/dL 12/11/2024 12:59 PM EDT [facility] Blood Structure of peripheral vein / Unknown Venipuncture / Unknown 12/11/2024 12:08 PM EDT 12/11/2024 12:26 PM EDT Franklin Flowers MD LAB BLOOD ORDERABLES [place] Result [facility] [address] [place] [address], [place] * ALT (12/11/2024 12:08 PM EDT) ALT 20 10 - 40 U/L 12/11/2024 12:59 PM EDT [facility] Blood Structure of peripheral vein / Unknown Venipuncture / Unknown 12/11/2024 12:08 PM EDT 12/11/2024 12:26 PM EDT Frnaklin Flowers MD LAB BLOOD ORDERABLES [place] Result [facility] [address] [place] [address], * AST (12/11/2024 12:08 PM EDT) AST 30 10 - 40 U/L 12/11/2024 12:59 PM EDT [facility] Blood Structure of peripheral vein / Unknown Venipuncture / Unknown 12/11/2024 12:08 PM EDT 12/11/2024 12:26 PM EDT Franklin Flowers MD LAB BLOOD ORDERABLES [place] Result Performing Organization Address [facility] Center/[facility] Co de Phone Number [facility] [address] [place] [address], [place] * Phosphorus (12/11/2024 12:08 PM EDT) Phosphorus 3.4 2.5 - 4.5 mg/dL 12/11/2024 12:59 PM EDT [facility] Blood Structure of peripheral vein / Unknown Venipuncture / Unknown 12/11/2024 12:08 PM EDT 12/11/2024 12:26 PM EDT Franklin Flowers MD LAB BLOOD ORDERABLES [place] Result [facility] [address] [place] [address], [place] * (ABNORMAL) Creatinine (12/11/2024 12:08 PM EDT) Creatinine 3.06(H) 0.50 - 1.20 mg/dL 12/11/2024 12:59 PM EDT [facility] eGFR 17(L) >=60 mL/min/1 .73m2 12/11/2024 12:59 PM EDT [facility] Comment:The estimated glomer ular [...] ORDERABLES [place] Result Performing Organization Address [facility]/ZIP Co de Phone Number [facility] [address] [place] [address], [place] * (ABNORMAL) Calcium (12/11/2024 12:08 PM EDT) Calcium 10.7(H) 8.6 - 10.5 mg/dL 12/11/2024 12:59 PM EDT [facility] Blood Structure of peripheral vein / Unknown Venipuncture / Unknown 12/11/2024 12:08 PM EDT 12/11/2024 12:26 PM EDT Franklin Flowers MD LAB BLOOD ORDERABLES [place] Result Performing Organization Address City/[facility]/ZIP Co de Phone Number [facility] [address] [place] [address], [place] * Bilirubin, Direct (12/11/2024 12:08 PM EDT) Bilirubin, Direct 0.2 <=0.4 mg/dL 12/11/2024 12:59 PM EDT [facility] Blood Structure of peripheral vein / Unknown Venipuncture / Unknown 12/11/2024 12:08 PM EDT 12/11/2024 12:26 PM EDT Franklin Flowers MD LAB BLOOD ORDERABLES [place] Result Performing Organization Address City/[facility]/ZIP Co de Phone Number [facility] [address] [place] [address], [place] * Bilirubin, Total (12/11/2024 12:08 PM EDT) Bilirubin, Total 0.5 0.2 - 1.2 mg/dL 12/11/2024 12:59 PM EDT [facility] Blood Structure of peripheral vein / Unknown Venipuncture / Unknown 12/11/2024 12:08 PM EDT 12/11/2024 12:26 PM EDT Franklin Flowers MD LAB BLOOD ORDERABLES [place] Result Performing Organization Address City/[facility]/ZIP Co de Phone Number [facility] [address] [place] [address], [place] * Albumin (12/11/2024 12:08 PM EDT) Albumin 4.2 3.5 - 5.2 g/dL 12/11/2024 12:59 PM EDT [facility] Blood Structure of peripheral vein / Unknown Venipuncture / Unknown 12/11/2024 12:08 PM EDT 12/11/2024 12:26 PM EDT Franklin Flowers MD LAB BLOOD ORDERABLES [place] Result [facility] [address] [place] [address], [place] * (ABNORMAL) Microalbumin, Random Urine with Creatinine (08/07/2023 9:01 AM EST) Creatinine, Random Urine 92 20 - 275 mg/dL 08/08/2023 6:45 PM EST [employer] [facility] Microalbumin 150.8 mg/dL 08/08/2023 6:45 PM EST [employer] [facility] Comment: Verified by repeat analysis. Reference Range Not established Microalbumin/Crea tinine Ratio, Random Urine 1,639(H) <30 mcg/mg creat 08/08/2023 6:45 PM EST [employer] [facility] Comment: The ADA defines [...] ORDERABLES Final Resul t [facility] [address] [facility] [address], [place] [address], [employer] [facility] [address] [place] [address] * (ABNORMAL) Vitamin D, 25-Hydroxy, Total, Immunoassay (06/05/2023 11:53 AM EDT) Calcidiol+ercalc idiol 22(L) 30 - 100 ng/mL 06/05/2023 9:28 PM EDT [facility] [employer] [facility] Comment: Vitamin D Status 25-OH Vitamin D: Deficiency: <20 ng/mL Insufficiency: 20 - 29 ng/mL Optimal: > or = 30 ng/mL For 25-OH Vitamin D testing on patients on D2-supplementation and patients for whom quantitation of D2 and D3 fractions is required, the QuestAssureD(TM) 25-OH VIT D, (D2,D3), LC/MS/MS is recommended: order code 11180 (patients >2yrs). See Note 1 Note 1 For additional information, please refer to http://education.MarketBrief/faq/YUR286 (This link is being provided for informational/ educational purposes only.) Blood Structure of peripheral vein / Unknown 06/05/2023 11:53 AM EDT 06/05/2023 7:56 PM EDT Narrative [facility] - 06/09/2023 5:04 AM EDT FASTING:NO [employer] LAB BLOOD ORDERABLES Final Resul t Performing Organization Address [facility] de Phone Number [facility] [address], [place] [address], [place] [phone] [facility] [address] [address] * (ABNORMAL) PTH, Intact (without Calcium) (06/05/2023 11:53 AM EDT) Parathyroid Hormone, Intact 205(H) 16 - 77 pg/mL 06/06/2023 1:16 AM EDT [facility] Comment: Interpretive Guide Intact PTH Calcium ------- Normal Parathyroid Normal Normal Hypoparathyroidism Low or Low Normal Low Hyperparathyroidism Primary Normal or High High Secondary High Normal or Low Tertiary High High Non-Parathyroid Hypercalcemia Low or Low Normal High Blood Structure of peripheral vein / Unknown 06/05/2023 11:53 AM EDT 06/05/2023 11:02 PM EDT Narrative [facility] - 06/09/2023 5:04 AM EDT FASTING:NO [employer] LAB BLOOD ORDERABLES Final Resul t Performing Organization Address [facility] de Phone Number [facility] [address], [place] [address], [place] [phone] [facility] [address] [address] * (ABNORMAL) Renal Function Panel (06/05/2023 11:53 AM EDT) [facility] Glucose 89 65 - 139 mg/dL 06/05/2023 10:49 PM EDT [facility] Comment: Non-fasting reference interval BUN 39(H) 7 - 25 mg/dL 06/05/2023 10:49 PM EDT [facility] Creatinine 2.61(H) 0.50 - 1.03 mg/dL 06/05/2023 10:49 PM EDT [facility] eGFR 21(L) > OR = 60 mL/min/1. 73m2 06/05/2023 10:49 PM EDT [facility] Bun/Creatinine Ratio 15 6 - 22 (calc) 06/05/2023 10:49 PM EDT [facility] Sodium 137 135 - 146 mmol/L 06/05/2023 10:49 PM EDT [facility] Potassium 4.6 3.5 - 5.3 mmol/L 06/05/2023 10:49 PM EDT [facility] Chloride 111(H) 98 - 110 mmol/L 06/05/2023 10:49 PM EDT [facility] Carbon Dioxide 18(L) 20 - 32 mmol/L 06/05/2023 10:49 PM EDT [facility] Calcium 9.8 8.6 - 10.4 mg/dL 06/05/2023 10:49 PM EDT [facility] Phosphate 3.5 2.5 - 4.5 mg/dL 06/05/2023 10:49 PM EDT [facility] Albumin 4.0 3.6 - 5.1 g/dL 06/05/2023 10:49 PM EDT [facility] Blood Structure of peripheral vein / Unknown 06/05/2023 11:53 AM EDT 06/05/2023 7:56 PM EDT Narrative [facility] - 06/09/2023 5:04 AM EDT FASTING:NO us Anupama Bynum DO LAB BLOOD ORDERABLES Final Resul t [facility] [address] [facility] [address], [place] [address], [facility] [address] [place] [address] from Last 3 Months or Most Recently Relevant to Health Maintenance Insurance * Guarantor: Aneta Gan Account Type Relation to Patient Date of Phone Billing Address Personal/Family Self 1965 [phone] (Work) [address] [place] [address] [facility] * Guarantor: Aneta Gan Account Type Relation to Patient Date of Phone Billing Address Transplant Self 1965 [phone] (Work) [address] [place] [address] [facility] Advance Directives Documents on File Type Date Recorded Patient [employer] Worker Expl [facility] Care Proxy 12/25/2024 8:48 AM 12/11 Care Teams Requirements Manager Relationship Specialty Start Date End Date Franklin Sanchez PA [address] [place] [id number] PCP - General 06/05/23
--- OUTSIDE RECORDS SUMMARY | 2025-03-04 16:03 | XMS_ITS | Clinical Summary ---
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
[2025-03-05 08:02] LABS: Prothrombin Time Whole Bld POC 42.5 sec (11.1-13.5); ~PT, ~INR - Anti Coag Clinic 3.5 (0.9-1.1)
== END 2025-03-04 16:01 | disposition home or self-care (01) ==
LOC: HO.ACS 15:23
PROVIDERS: PCP Physician Assistant; Visit Provider Internal Medicine Medical Oncology
DX: Z79.01 Long term (current) use of anticoagulants (principal)

== ENCOUNTER → 2025-03-04 15:23 | Outpatient (BNVA) | payer OTHER, MEDICAID, SELFPAY | PROVIDERS: PCP Physician Assistant; Visit Provider Internal Medicine Medical Oncology | DX: I26.99 Other pulmonary embolism without acute cor pulmonale (principal); Z79.01 Long term (current) use of anticoagulants; Z51.81 Encounter for therapeutic drug level monitoring | CPT/HCPCS: 85610; 99211 ==

== ENCOUNTER 2025-03-09 15:27 | Outpatient (AMB) | payer OTHER, MEDICAID, SELFPAY ==
--- OUTSIDE RECORDS SUMMARY | 2025-03-09 15:30 | XMS_ITS | Clinical Summary ---
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
--- OUTSIDE RECORDS SUMMARY | 2025-03-09 15:30 | XMS_ITS | Encounter Summary ---
Author Organization [facility] Address [address] [place] [address] Phone Care Team Providers Care Manager Sales Name Role Phone Unavailable Primary Care Provider Unavailabl e Encounter Details Date Type Department Care Team (Late st Contact Info) Description 08/10/2022 Telephone [facility] [address] [place] [address] Roe Morrissey MD Social History [...] Iris Gee - 08/10/2022 10:19 AM EST [facility] insurance verification called, pt will need a PA for her truxima infusion that is scheduled for tomorrow. This will need to go through [facility]. documented in this encounter Plan of [...] EDT) Calcium 9.1 8.4 - 10.2 mg/dL [facility] 11/06/2022 4:20 PM EDT 11/06/2022 4:20 PM EDT Roe Morrissey MD LAB BLOOD ORDERABLES Final Res ult [place] * (ABNORMAL) Creatinine (11/06/2022 4:20 PM EDT) Creatinine Serum 2.59(H) 0.5 - 1.4 mg/dL [facility] eGFR (Calc) 19 [facility] Comment: NOTE: For -[place] individuals, multiply the result by 1.210. Chronic Kidney Disease: Estimated GFR < 60 mL/min/1.73m2 Severe Kidney Disease: Estimated GFR < 15 mL/min/1.73m2 11/06/2022 4:20 PM EDT 11/06/2022 4:20 PM EDT Roe Morrissey MD LAB BLOOD ORDERABLES Final Res ult Performing Organization Address City/[facility]/ZIP Co de Phone Number [place] * (ABNORMAL) BUN (11/06/2022 4:20 PM EDT) BUN 44(H) 9 - 16 mg/dL [facility] 11/06/2022 4:20 PM EDT 11/06/2022 4:20 PM [...]
--- OUTSIDE RECORDS SUMMARY | 2025-03-09 15:30 | XMS_ITS | Clinical Summary ---
Author Organization [facility] Address [address] [place] [address] Care Team Providers Care Retail General Manager Name Role Phone Franklin Sanchez Primary Care Provider [phone] Allergies Active Allergy Reactions Criticality Noted Date [...] propionate (FLONASE) 50 mcg/actuation nasal spray SMARTSI [place](s) Both Nares Twice Daily 5 Active sodium bicarbonate 650 mg tablet SMARTSI Tablet(s) By Mouth Twice Daily 5 Active predniSONE (DELTASONE) 2.5 mg tablet 5 Active Active Problems No known active problems Encounters Date Type Department Care Team Description 02/18/2025 Orders Only [facility] Transplant Department [address] [place] [address] Zenobia Zepeda, RN Pre-transplant evaluation for end stage renal disease (Primary Dx); Chronic kidney disease, stage IV (severe) (HCC) 02/18/2025 Documentation [facility] Transplant Department [address] [place] [address] Seema Arredondo, PRIYANK ABO Dual Validation 02/18/2025 Orders Only [facility] Transplant Department [address] [place] [address] Zenobia Zepeda, RN 02/12/2025 Telephone [facility] Transplant Department [address] [place] [address] Zenobia Zepeda, shipfitter helper - Kidney Txp 01/12/2025 Orders Only External Imaging [address] [place] [address] Radiology, External 01/12/2025 Orders Only External Imaging [address] [place] [address] Radiology, External 12/18/2024 Telephone [facility] Transplant Department [address] [place] [address] Zenobia Zepeda, RN 12/12/2024 Telephone [facility] Transplant Department [address] [place] [address] Linh Patel RN 12/12/2024 Documentation [facility] Transplant Department [address] [place] [address] Delores Sepulveda LICSW 12/11/2024 12:00 PM EDT Lab [facility] [place] Lab Draw Site [address] [place] [address] Pre-transplant evaluation for end stage renal disease; Chronic kidney disease, stage IV (severe) (HCC) 12/11/2024 10:15 AM EDT Office Visit [facility] Renal Transplant [address] [place] [address] Franklin Flowers MD Pre-transplant evaluation for kidney transplant (Primary Dx); Pre-transplant evaluation for end stage renal disease; Stage 5 chronic kidney disease not on chronic dialysis (HCC) 12/11/2024 9:30 AM EDT Social Work [facility] Renal Transplant [address] [place] [address] Delores Sepulveda LICSW 12/11/2024 8:30 AM EDT Evaluation [facility] Renal Transplant [address] [place] [address] Zenobia Zepeda, RN Pre-transplant evaluation for kidney transplant (Primary Dx); ESRD (end stage renal disease) (HCC) 12/11/2024 8:00 AM EDT Office Visit [facility] Renal Transplant [address] [place] [address] Evon Sierra LPN Pre-transplant evaluation for kidney transplant (Primary Dx) 12/08/2024 Telephone [facility] Transplant Department [address] [place] [address] Zenobia Zepeda, RN from Last 3 Months [...] Info) Description 12/08/2025 8:20 AM EDT Follow-Up [facility] Renal Transplant [address] [place] [address] Franklin Flowers MD [address] [place] [address] 12/08/2025 9:00 AM EDT Social Work [facility] Renal Transplant [address] [place] [address] Delores Sepulveda LICSW [address] [place] [address] Health Maintenance Due Date Last Done Comments [...] Screening Completed 12/11/2024 Procedures * Due to [place] state law, [...] Chronic kidney disease, stage IV (severe) (HCC) TIMO-ASTUDILLO VIRUS ANTIBODY PANEL Routine 12/11/2024 12:08 PM [...] IV (severe) (HCC) QUANTIFERON-TB GOLD PLUS, 1 [id number] Routine 12/11/2024 12:08 PM EDT Pre-transplant evaluation for end stage renal disease Chronic kidney disease, stage IV (severe) (HCC) RPR (DIAGNOSIS) W/REFLEX TO TITER & TPPA [id number] Routine 12/11/2024 12:08 PM EDT Pre-transplant evaluation for end stage renal disease Chronic kidney disease, stage IV (severe) (HCC) VARICELLA ZOSTER ANTIBODY, IGG Routine 12/11/2024 12:08 PM EDT Pre-transplant evaluation for end stage renal disease Chronic kidney disease, stage IV (severe) (HCC) HLA TRANSPLANT WORK-UP (ALLELE LEVEL A/B/C/DRB1/CWJ982/DQA 1/DQB1/DPA1/DPB1) Routine 12/11/2024 12:08 PM EDT Pre-transplant [...] ABSTRACTION (02/12/2025 4:03 PM EDT) ABO AB [facility] RH Positive [facility] 02/12/2025 4:03 PM EDT us Unknown Provider MD LAB HISTORICAL RESULTS Final Result [facility] [address] [place] [address] * Echo Outside Films (01/29/2025 11:36 AM EDT) Narrative 01/29/2025 11:36 AM EDT This order has been auto-finalized and does not contain a result. us External Radiology CV ECHO PROCEDURES Final Resu lt * HLA Transplan Work-Up(Allele Level A/B/C/DRB1/QJG365/DQA1/DQB1/DPA1/DPB1) (12/11/2024 12:08 PM EDT) Histocompatibility Laboratory Information See Below 12/16/2024 4:30 PM EDT [facility] Comment: SUNI: [id number] Director: Hussein Olivo MD. [facility] PFI: [id number] UNOS: [id number] This test was [...] testing. C*-1 C*04:01 12/16/2024 4:30 PM EDT [facility] C*-2 DATA NOT REPORTED 12/16/2024 4:30 PM EDT [facility] C*-1 NMDP DATA NOT REPORTED 12/16/2024 4:30 PM EDT [facility] C*-2 NMDP [...] [facility] [address] Rm: [id number] [place] [address], * MMR Panel, IgG (12/11/2024 12:08 PM EDT) [facility] Measles Antibody (IgG), Immune Status >300.00 AU/mL 12/11/2024 9:31 PM EDT [facility] Comment: AU/mL Interpretation ----- <13.50 Not consistent with immunity 13.50-16.49 Equivocal >16.49 Consistent with immunity The presence of measles IgG suggests immunization or past or current infection with measles virus. For additional information, please refer to http://Contour Semiconductor.Trello/faq/GGG341 (This link is being provided for informational/ educational purposes only.) Mumps Antibody (IgG), Immune Status 114.00 AU/mL 12/11/2024 9:31 PM EDT [facility] Comment: AU/mL Interpretation ------- <9.00 Not consistent with immunity 9.00-10.99 Equivocal >10.99 Consistent with immunity The presence of mumps IgG antibody suggests immunization or past or current infection with mumps virus. Rubella Antibody (IgG), Immune Status 20.40 Index 12/11/2024 9:31 PM EDT [facility] Comment: Index Interpretation ----- <0.90 Not consistent with immunity 0.90-0.99 Equivocal > or = 1.00 Consistent with immunity The presence of rubella IgG antibody suggests immunization or past or current infection with rubella virus. Blood Structure of peripheral vein / Unknown Venipuncture / Unknown 12/11/2024 12:08 PM EDT 12/11/2024 12:23 PM EDT Narrative [facility] - 12/11/2024 9:31 PM EDT [facility] Received Date: us Franklin Flowers MD LAB BLOOD ORDERABLES [place] Result [facility] [address] [facility] [address] [place] [address], [facility] [address] [facility] 3rd Floor, [place] [address], [place] [phone] * (ABNORMAL) Herpes Simplex Virus 1&2, IgG (12/11/2024 12:08 PM EDT) HSV 1 IgG Type Specific Ab 44.60(H) index 12/12/2024 4:21 AM EDT Lat49 [facility] HSV 2 IgG Type Specific Ab 14.90(H) index 12/12/2024 4:21 AM EDT Lat49 [facility] Comment: Index Interpretation ----- <0.90 Negative 0.90-1.09 [...] screening. For additional information, please refer to http://education.Trello/faq/OEJ486 (This link is being provided for informational/ educational purposes only.) Blood Structure of peripheral vein / Unknown Venipuncture / Unknown 12/11/2024 12:08 PM EDT 12/11/2024 12:24 PM EDT Narrative [facility] - 12/12/2024 4:21 AM EDT [facility] Received Date: Franklin Flowers MD LAB BLOOD ORDERABLES [place] Result LULA [facility] [address] [facility] [address], [place] [address], Lat49 [facility] [address] [facility] 3rd Floor, [place] [address], * RPR (Diagnosis) w/Reflex to Titer & TPPA Confirm (12/11/2024 12:08 PM EDT) RPR W/Refl Titer NON-REACT MARSHALL NON-REACT MARSHALL 12/12/2024 11:54 AM EDT K121 Blood Structure of peripheral vein / Unknown Venipuncture / Unknown 12/11/2024 12:08 PM EDT 12/11/2024 12:24 PM EDT Narrative [facility] - 12/12/2024 11:54 AM EDT [facility] Received Date: Franklin Flowers MD LAB BLOOD ORDERABLES [place] Result [facility] [address] [facility] [address], [place] [address], Lat49 [facility] [address] [facility] 3rd [address], [place] [address], * QuantiFERON-TB Gold Plus, 1 Tube (12/11/2024 12:08 PM EDT) [facility] QuantiFERON-TB Gold Plus NEGATIVE NEGATIVE 12/14/2024 2:16 AM EDT K121 Comment: Negative test result. M. tuberculosis complex infection unlikely. NIL 0.03 IU/mL 12/14/2024 2:16 AM EDT K121 Mitogen-NIL 9.50 IU/mL 12/14/2024 2:16 AM EDT K121 TB1-NIL 0.02 IU/mL 12/14/2024 2:16 AM EDT K121 TB2-NIL 0.01 IU/mL 12/14/2024 2:16 AM [employer] [facility] Comment: The Nil tube value reflects the [...] T-lymphocytes. For additional information, please refer to https://education.DalloulNW/faq/LFF025 (This link is being provided for informational/ educational purposes only.) Blood Structure of peripheral vein / Unknown Venipuncture / Unknown 12/11/2024 12:08 PM EDT 12/11/2024 12:22 PM EDT Narrative [facility] - 12/14/2024 2:16 AM EDT [facility] Received Date: Franklin Flowers MD LAB BLOOD ORDERABLES [place] l Result LULA [facility] [address] [facility] [address], [place] [address], [place] [phone] Lat49 [facility] [address] [facility] 3rd Floor, [place] [address], * (ABNORMAL) CBC Auto Differential (12/11/2024 12:08 PM EDT) WBC 6.6 3.8 - 10.8 10*3/uL 12/11/2024 12:32 PM EDT [facility] RBC 3.52(L) 3.80 - 5.10 10*6/uL 12/11/2024 12:32 PM EDT [facility] Hemoglobin 10.4(L) 11.7 - 15.5 g/dL 12/11/2024 12:32 PM EDT [facility] Hematocrit 33.1(L) 35.0 - 45.0 % 12/11/2024 12:32 PM EDT [facility] MCV 94.0 80.0 - 100.0 fL 12/11/2024 12:32 PM EDT [facility] MCH 29.5 27.0 - 33.0 pg 12/11/2024 12:32 PM EDT [facility] MCHC 31.4(L) 32.0 - 36.0 g/dL 12/11/2024 12:32 PM EDT [facility] RDW 13.3 11.0 - 15.0 % 12/11/2024 12:32 PM EDT [facility] Platelets 289 140 - 400 10*3/uL 12/11/2024 12:32 PM EDT [facility] MPV 10.4 7.5 - 12.5 fL 12/11/2024 12:32 PM EDT [facility] Neutrophil % 58.9 % 12/11/2024 12:32 PM EDT [facility] Immature Grans % 0.5 0.0 - 0.9 % 12/11/2024 12:32 PM EDT [facility] Lymphocyte % 30.5 % 12/11/2024 12:32 PM EDT [facility] Monocyte % 5.8 % 12/11/2024 12:32 PM EDT [facility] Eosinophil % 3.8 % 12/11/2024 12:32 PM EDT [facility] Basophil % 0.5 % 12/11/2024 12:32 PM EDT [facility] Neutrophil # 3.86 1.50 - 7.80 10*3/uL 12/11/2024 12:32 PM EDT [facility] Immature Grans # 0.03 <=0.03 10*3/uL 12/11/2024 12:32 PM EDT [facility] Lymphocyte # 2.00 0.85 - 3.90 10*3/uL 12/11/2024 12:32 PM EDT [facility] Monocyte # 0.40 0.20 - 0.95 10*3/uL 12/11/2024 12:32 PM EDT [facility] Eosinophil # 0.30 0.02 - 0.50 10*3/uL 12/11/2024 12:32 PM EDT [facility] Basophil # <0.03 0.00 - 0.20 10*3/uL 12/11/2024 12:32 PM EDT [facility] nRBC % 0.0 /100 WBCs 12/11/2024 12:32 PM EDT [facility] nRBC # <0.01 <0.01 10*3/uL 12/11/2024 12:32 PM EDT [facility] Blood Structure of peripheral vein / Unknown Venipuncture / Unknown 12/11/2024 12:08 PM EDT 12/11/2024 12:24 PM EDT us Franklin Flowers MD LAB BLOOD ORDERABLES [place] l Result [facility] [address] [place] [address], * (ABNORMAL) Timo-Astudillo Virus VCA Antibody Panel (12/11/2024 12:08 PM EDT) EBV Viral Capsid Ag Ab (IGM) <36.00 U/mL 12/12/2024 4:20 AM EDT [facility] Comment: U/mL Interpretation ---- <36.00 Negative 36.00-43.99 Equivocal >43.99 Positive EBV Viral Capsid Ag Ab (IGG) 386.00(H) U/mL 12/12/2024 4:20 AM [employer]oco [employer] [facility] Comment: U/mL Interpretation ---- <18.00 Negative 18.00-21.99 Equivocal >21.99 Positive EBV Nuclear Ag Ab >600.00(H) U/mL 025 4:20 AM [employer] K121 Comment: U/mL Interpretation ---- <18.00 Negative 18.00-21.99 Equivocal >21.99 Positive Interpretation: See Comments 12/12/2024 4:20 AM EDT [facility] Comment: Suggestive of a past Timo-Astudillo virus infection. In infants, a similar pattern may occur as a result of passive maternal transfer of antibody. Blood Structure of peripheral vein / Unknown Venipuncture / Unknown 12/11/2024 12:08 PM EDT 12/11/2024 12:23 PM EDT Narrative Goldb[facility] - 12/12/2024 4:20 AM EDT [facility] Received Date: Franklin Flowers MD LAB BLOOD ORDERABLES [place] l Result Performing Organization Address City/[facility]/ZIP Co de Phone Number [facility] [address] [facility] 3rd [address], [place] [address], Lat[address], [place] [address], * Hepatitis C Antibody w/Reflex to PCR (12/11/2024 12:08 PM EDT) Hepatitis C Antibody NON-REACT MARSHALL NON-REACT MARSHALL 12/12/2024 6:33 AM EDT [facility] Comment: HCV antibody was non-reactive. There is no laboratory evidence of HCV infection. In most cases, no further action is required. However, if recent HCV exposure is suspected, a test for HCV RNA (test code 48237) is suggested. For additional information please refer to http://education.DalloulNW/faq/DWV40e2 (This link is being provided for informational/ educational purposes only.) Blood Structure of peripheral vein / Unknown Venipuncture / Unknown 12/11/2024 12:08 PM EDT 12/11/2024 12:23 PM EDT Ricky [facility] - 12/12/2024 6:33 AM EDT [facility] Received Date:[id number] Franklin Flowers MD LAB BLOOD ORDERABLES [place] l Result LULA NAVA [address], [address] [facility] [place] [address], [place] [phone] Lat49 [facility] [address], [place] [address], * (ABNORMAL) Hepatitis A Antibody, Total (12/11/2024 12:08 PM EDT) Hepatitis A Ab, Total REACTIVE( A) NON-REACT MARSHALL 12/12/2024 5:23 AM EDT [facility] Comment: For additional information, please refer to http://Contour Semiconductor.DalloulNW/faq/GAA718 (This link is being provided for informational/ educational purposes only.) Blood Structure of peripheral vein / Unknown Venipuncture / Unknown 12/11/2024 12:08 PM EDT 12/11/2024 12:23 PM EDT Narrative [facility] - 12/12/2024 5:23 AM EDT [facility] Received Date:[id number] Franklin Flowers MD LAB BLOOD ORDERABLES [place] l Result LULA NAVA [address], [place] [address], [place] [phone] Lat49 [facility] [address], [address] [facility] [place] [address], * Hepatitis B Core Antibody, Total (12/11/2024 12:08 PM EDT) Hepatitis B Core Ab Total NON-REACT MARSHALL NON-REACT MARSHALL 12/11/2024 9:08 PM EDT [facility] Comment: For additional information, please refer to http://Contour [employer]ductor.DalloulNW/faq/DVE587 (This link is being provided for informational/ educational purposes only.) Blood Structure of peripheral vein / Unknown Venipuncture / Unknown 12/11/2024 12:08 PM EDT 12/11/2024 12:24 PM EDT Narrative [facility] - 12/11/2024 9:08 PM EDT [facility] Received Date: us Franklin Flowers MD LAB BLOOD ORDERABLES [place] l Result Performing Organization Address City/[facility]/ZIP Co de Phone Number [facility] [address] [facility] [address], [place] [address], [place] [phone] Lat49 [facility] [address] [facility] 3rd Floor, [place] [address], [place] [phone] * ABO/Rh Blood Type (12/11/2024 12:08 PM EDT) Pathologist [facility] ABO Blood Type AB 12/11/2024 1:50 PM EDT [facility] RH Type Positive 12/11/2024 1:50 PM EDT [facility] Blood Structure of peripheral vein / Unknown Venipuncture / Unknown 12/11/2024 12:08 PM EDT 12/11/2024 1:04 PM EDT us Franklin Flowers MD LAB BLOOD BANK TEST ORDER HENRY Final Result Performing Organization Address City/[facility]/ZIP Co de Phone Number [facility] INFCE [address] [place] [address], * (ABNORMAL) Hepatitis B Surface Antibody (12/11/2024 12:08 PM EDT) Pathologist [facility] Hepatitis B Surface Ab Immunity, Qn <5(L) > OR = 10 mIU/mL 12/12/2024 4:47 AM EDT Lat49 [facility] Comment: PATIENT DOES NOT HAVE IMMUNITY TO HEPATITIS B VIRUS. For additional information, please refer to http://education.Interhyp.RocketHub/faq/KDV611 (This link is being provided for informational/ educational purposes only). Blood Structure of peripheral vein / Unknown Venipuncture / Unknown 12/11/2024 12:08 PM EDT 12/11/2024 12:23 PM EDT Ricky [facility] - 12/12/2024 4:47 AM EDT [facility] Received Date: Franklin Flowers MD LAB BLOOD ORDERABLES [place] l Result Performing Organization Address City/[facility]/ZIP Co de Phone Number [facility] [address], [place] [address], Lat49 [facility] [address], [place] [address], * Hepatitis B Surface Antigen w/Confirmation (12/11/2024 12:08 PM EDT) Pathologist [facility] Hepatitis B Surface Antigen NON-REACT MARSHALL NON-REACT MARSHALL 12/11/2024 9:08 PM EDT [facility] Comment: For additional information, please refer to http://education.DalloulNW/faq/PAE534 (This link is being provided for informational/ educational purposes only.) Blood Structure of peripheral vein / Unknown Venipuncture / Unknown 12/11/2024 12:08 PM EDT 12/11/2024 12:23 PM EDT Ricky Goldbely [facility] - 12/11/2024 9:08 PM EDT [facility] Received Date: Franklin Flowers MD LAB BLOOD ORDERABLES [place] l Result Performing Organization Address City/[facility]/ZIP Co de Phone Number LULA NAVA [address], [place] [address], [place] [phone] Lat49 [facility] [address], [place] [address], * (ABNORMAL) Cytomegalovirus Antibody, IgG (12/11/2024 12:08 PM EDT) Cytomegalovirus Antibody (IgG) >10.00(H ) U/mL 12/11/2024 9:30 PM EDT [facility] Comment: U/mL Interpretation ----- <0.60 Negative 0.60-0.69 Equivocal > or = 0.70 Positive A positive result indicates that the patient has antibody to CMV. It does not differentiate between an active or past infection. Blood Structure of peripheral vein / Unknown Venipuncture / Unknown 12/11/2024 12:08 PM EDT 12/11/2024 12:23 PM EDT Narrative [facility] - 12/11/2024 9:30 PM EDT [facility] Received Date: Franklin Flowers MD LAB BLOOD ORDERABLES [place] Result Performing Organization Address City/[facility]/ZIP Co de Phone Number [address] [facility], [place] [address], [place] [phone], [place] [address], [place] [phone] * (ABNORMAL) PTT (12/11/2024 12:08 PM EDT) [facility] aPTT 36.4(H) 23.0 - 32.0 Seconds 12/11/2024 12:48 PM EDT [facility] Comment: Current PTT reagent is not sensitive to detect all Lupus Anticoagulant (LA) Inhibitor Cases. If a LA is suspected, please order a Lupus Anticoagulation w/ Reflex Test which is performed at [facility] in [place], [place]. Blood Structure of peripheral vein / Unknown Venipuncture / Unknown 12/11/2024 12:08 PM EDT 12/11/2024 12:24 PM EDT Franklin Flowers MD LAB BLOOD ORDERABLES [place] l Result [facility] [address] [place] [address], * (ABNORMAL) Protime-INR (12/11/2024 12:08 PM EDT) PT 23.5(H) 9.6 - 12.4 Seconds 12/11/2024 12:48 PM EDT [facility] INR 2.3 0.9 - 1.1 12/11/2024 12:48 PM EDT [facility] Comment:The optimal therapeu tic INR range for patients treated with Vitamin K antagonists (VKAS, e.g., Warfarin) is 2.0 to 3.5. Discuss the desired range with your doctor/care team. Blood Structure of peripheral vein / Unknown Venipuncture / Unknown 12/11/2024 12:08 PM EDT 12/11/2024 12:24 PM EDT Franklin Flowers MD LAB BLOOD ORDERABLES [place] Result [facility] [address] [place] [address], * Varicella Zoster Antibody, IgG (12/11/2024 12:08 PM EDT) Varicella Zoster Virus Antibody 32.50 S/CO 12/12/2024 4:28 AM EDT K121 Comment: Signal to Cut-off S/CO Interpretation --------- [...] EDT 12/11/2024 12:24 PM EDT Narrative [facility] - 12/12/2024 4:28 AM EDT [facility] Received Date:[id number] Franklin Flowers MD LAB BLOOD ORDERABLES [place] l Result [facility] [address] [facility] [address], [place] [address], [place] [phone] Lat49 [facility] [address] [facility] 3rd [address], [place] [address], [place] [phone] * (ABNORMAL) BUN (12/11/2024 12:08 PM EDT) BUN 41(H) 7 - 23 mg/dL 12/11/2024 12:59 PM EDT [facility] Blood Structure of peripheral vein / Unknown Venipuncture / Unknown 12/11/2024 12:08 PM EDT 12/11/2024 12:26 PM EDT Franklin Flowers MD LAB BLOOD ORDERABLES [place] Result Performing Organization Address [facility]/ZIP Co de Phone Number [facility] [address] [place] [address], [place] * ALT (12/11/2024 12:08 PM EDT) ALT 20 10 - 40 U/L 12/11/2024 12:59 PM EDT [facility] Blood Structure of peripheral vein / Unknown Venipuncture / Unknown 12/11/2024 12:08 PM EDT 12/11/2024 12:26 PM EDT Franklin Flowers MD LAB BLOOD ORDERABLES [place] Result [facility] [address] [place] [address], [place] * AST (12/11/2024 12:08 PM EDT) AST 30 10 - 40 U/L 12/11/2024 12:59 PM EDT [facility] Blood Structure of peripheral vein / Unknown Venipuncture / Unknown 12/11/2024 12:08 PM EDT 12/11/2024 12:26 PM EDT Franklin Flowers MD LAB BLOOD ORDERABLES [place] l Result [facility] [address] [place] [address], * Phosphorus (12/11/2024 12:08 PM EDT) Phosphorus 3.4 2.5 - 4.5 mg/dL 12/11/2024 12:59 PM EDT [facility] Blood Structure of peripheral vein / Unknown Venipuncture / Unknown 12/11/2024 12:08 PM EDT 12/11/2024 12:26 PM EDT Franklin Flowers MD LAB BLOOD ORDERABLES [place] l Result Performing Organization Address City/[facility]/ZIP Co de Phone Number [facility] CL[facility] LAB[facility]ATORY [address] [place] [address], * (ABNORMAL) Creatinine (12/11/2024 12:08 PM EDT) Creatinine 3.06(H) 0.50 - 1.20 mg/dL 12/11/2024 12:59 PM EDT [facility] eGFR 17(L) >=60 mL/min/1 .73m2 12/11/2024 12:59 PM EDT [facility] Comment:The estimated glomer ular filtration rate (eGFR) is calculated using a new formula developed by the NKF-ASN task force to eliminate race-based correction factors. The new formula uses serum/plasma creatinine, age, and gender to determine eGFR. A value below 60mls/min might indicate kidney disease and will be flagged. For additional information, see Silva et al, Am J Kidney Dis. 2021;79(2):268- 288, A Unifying Approach for GFR estimation: Recommendations of the NKF-ASN Task Force on Reassessing the Inclusion of Race in Diagnosing Kidney Disease . Blood Structure of peripheral vein / Unknown Venipuncture / Unknown 12/11/2024 12:08 PM EDT 12/11/2024 12:26 PM EDT Franklin Flowers MD LAB BLOOD ORDERABLES [place] Result Performing Organization Address City/[facility]/ZIP Co de Phone Number [facility] CL[facility] PATH[facility] LABOR[facility]ORY [address] [place] [address], * (ABNORMAL) Calcium (12/11/2024 12:08 PM EDT) Calcium 10.7(H) 8.6 - 10.5 mg/dL 12/11/2024 12:59 PM EDT [facility] Blood Structure of peripheral vein / Unknown Venipuncture / Unknown 12/11/2024 12:08 PM EDT 12/11/2024 12:26 PM EDT Franklin Flowers MD LAB BLOOD ORDERABLES [place] Result Performing Organization Address City/[facility]/ZIP Co de Phone Number [facility] [address] [place] [address], [place] * Bilirubin, Direct (12/11/2024 12:08 PM EDT) Bilirubin, Direct 0.2 <=0.4 mg/dL 12/11/2024 12:59 PM EDT [facility] Blood Structure of peripheral vein / Unknown Venipuncture / Unknown 12/11/2024 12:08 PM EDT 12/11/2024 12:26 PM EDT Franklin Flowers MD LAB BLOOD ORDERABLES [place] Result Performing Organization Address [facility]/ZIP Co de Phone Number [facility] [address] [place] [address], [place] * Bilirubin, Total (12/11/2024 12:08 PM EDT) Pathologist [facility] Bilirubin, Total 0.5 0.2 - 1.2 mg/dL 12/11/2024 12:59 PM EDT [facility] Blood Structure of peripheral vein / Unknown Venipuncture / Unknown 12/11/2024 12:08 PM EDT 12/11/2024 12:26 PM EDT Franklin Flowers MD LAB BLOOD ORDERABLES [place] Result Performing Organization Address [facility] Co de Phone Number [facility] CLINICAL PATHOLOG[facility] LABORATORY [address] [place] [address], [place] * Albumin (12/11/2024 12:08 PM EDT) [facility] Albumin 4.2 3.5 - 5.2 g/dL 12/11/2024 12:59 PM EDT [facility] Blood Structure of peripheral vein / Unknown Venipuncture / Unknown 12/11/2024 12:08 PM EDT 12/11/2024 12:26 PM EDT Franklin Flowers MD LAB BLOOD ORDERABLES [place] Result Performing Organization Address City/[facility]/ZIP Co de Phone Number [facility] CLINICAL PATHOLOG[facility] LABORATORY [address] [place] [address], [place] * (ABNORMAL) Microalbumin, Random Urine with Creatinine (08/07/2023 9:01 AM EST) Pathologist [facility] Creatinine, Random Urine 92 20 - 275 mg/dL 08/08/2023 6:45 PM EST [facility] Microalbumin 150.8 mg/dL 08/08/2023 6:45 PM EST K121 Comment: Verified by repeat analysis. Reference Range Not established Microalbumin/Crea tinine Ratio, Random Urine 1,639(H) <30 mcg/mg creat 08/08/2023 6:45 PM EST K121 Comment: The ADA defines abnormalities in albumin [...] [facility] [address], [place] [address], [facility] [address] [place] [address] * (ABNORMAL) Vitamin D, 25-Hydroxy, Total, Immunoassay (06/05/2023 11:53 AM EDT) Calcidiol+ercalc idiol 22(L) 30 - 100 ng/mL 06/05/2023 9:28 PM EDT K121 Comment: Vitamin D Status 25-OH Vitamin D: Deficiency: <20 ng/mL Insufficiency: 20 - 29 ng/mL Optimal: > or = 30 ng/mL For 25-OH Vitamin D testing on patients on D2-supplementation and patients for whom quantitation of D2 and D3 fractions is required, the [employer]ure[employer](TM) 25-OH VIT D, (D2,D3), LC/MS/MS is recommended: order code [id number] (patients >2yrs). See Note 1 Note 1 For additional information, please refer to http://education.Trello/faq/DKQ030 (This link is being provided for informational/ educational purposes only.) Blood Structure of peripheral vein / Unknown 06/05/2023 11:53 AM EDT 06/05/2023 7:56 PM EDT Narrative [facility] - 06/09/2023 5:04 AM EDT FASTING:NO Anupama Bynum DO LAB BLOOD ORDERABLES Final Resul t Performing Organization Address [facility] Co de Phone Number [facility] [address], [place] [address], [place] [phone] [address] * (ABNORMAL) PTH, Intact (without Calcium) (06/05/2023 11:53 AM EDT) Parathyroid Hormone, Intact 205(H) 16 - 77 pg/mL 06/06/2023 1:16 AM EDT [facility] Comment: Interpretive Guide Intact PTH Calcium ------- Normal Parathyroid Normal Normal Hypoparathyroidism Low or Low Normal Low Hyperparathyroidism Primary Normal or High High Secondary High Normal or Low Tertiary High High Non-Parathyroid Hypercalcemia Low or Low Normal High Blood Structure of peripheral vein / Unknown 06/05/2023 11:53 AM EDT 06/05/2023 11:02 PM EDT [facility] - 06/09/2023 5:04 AM EDT FASTING:NO us nAupama Bynum DO LAB BLOOD ORDERABLES Final Resul t Performing Organization Address [facility] Co de Phone Number [facility] [address], [place] [address], [place] [phone] [address] * (ABNORMAL) Renal Function Panel (06/05/2023 11:53 AM EDT) Glucose 89 65 - 139 mg/dL 06/05/2023 10:49 PM EDT [facility] Comment: Non-fasting reference interval BUN 39(H) 7 - 25 mg/dL 06/05/2023 10:49 PM EDT [facility] Creatinine 2.61(H) 0.50 - 1.03 mg/dL 06/05/2023 10:49 PM EDT [facility] eGFR 21(L) > OR = 60 mL/min/1. 73m2 06/05/2023 10:49 PM EDT [facility] Bun/Creatinine Ratio 15 6 - 22 (calc) 06/05/2023 10:49 PM EDT [facility] Sodium 137 135 - 146 mmol/L 06/05/2023 10:49 PM EDT [facility] Potassium 4.6 3.5 - 5.3 mmol/L 06/05/2023 10:49 PM EDT [facility] Chloride 111(H) 98 - 110 mmol/L 06/05/2023 10:49 PM EDT [facility] Carbon Dioxide 18(L) 20 - 32 mmol/L 06/05/2023 10:49 PM EDT [facility] Calcium 9.8 8.6 - 10.4 mg/dL 06/05/2023 10:49 PM EDT [facility] Phosphate 3.5 2.5 - 4.5 mg/dL 06/05/2023 10:49 PM EDT [facility] Albumin 4.0 3.6 - 5.1 g/dL 06/05/2023 10:49 PM EDT [facility] Blood Structure of peripheral vein / Unknown 06/05/2023 11:53 AM EDT 06/05/2023 7:56 PM EDT Narrative [facility] - 06/09/2023 5:04 AM EDT FASTING:NO us Anupama Bynum DO LAB BLOOD ORDERABLES Final Resul t [facility] [address] [facility] [address], [place] [address], [facility] [address] [place] [address] from Last 3 Months or Most Recently Relevant to Health Maintenance Insurance * Guarantor: Aneta Gan Account Type Relation to Patient Date of Phone Billing Address Personal/Family Self 1965 [phone] (Work) [address] [place] [address] [facility] * Guarantor: Gan, Aneta Account Type Relation to Patient Date of Phone Billing Address Transplant Self 1965 [phone] (Work) [address] [place] [address] [facility] Advance Directives Documents on File Type Date Recorded Patient Payroll Manager [facility] Care Proxy 12/25/2024 8:48 AM 12/11 Care Teams Retail General Manager Relationship Specialty Start Date End Date Franklin Sanchez PA [address] [place] [id number] PCP - General 06/05/23
--- NOTE | 2025-03-09 15:34 | A.OFFPC_ITS ---
Vital Signs 03/09/25 15:35 Height 5 ft Weight 136 lb BMI 26.6 BP 120/66 Blood Pressure Location Lt brachial Position Sitting Pulse 71 Pulse Source Pulse Oximeter Temp 97.3 F Temp Source Temporal Artery Scan Pulse Oximetry (%) 98 Oxygen Delivery Method Room Air Intake Visit Reasons: f/u SLE/ CKD-4 Intake Note: Patient is here to follow up on SLE, CKD. Garage Laborer Required: No Outsole Cementer Machine: Not Required per policy Accompanied by: Self / Same As Patient Allergies rituximab (From Rituxan) Allergy (Severe, Verified 03/09/25 15:48) Anaphylaxis cephalexin (From Keflex) Allergy (Unknown, Verified 03/09/25 15:48) RED+ITCHY,RASH Cephalosporins (CEPHALOSPORINS) Allergy (Unknown, Verified 03/09/25 15:48) RED+ITCHY Sulfa (Sulfonamide Antibiotics) (SULFA(SULFONAMIDE ANTIBIOTICS)) Allergy (Unknown, Verified 03/09/25 15:48) RED+ITCHY mycophenolate mofetil (From CellCept) Adverse Reaction (Intermediate, Verified 03/09/25 15:48) rash cellcept Allergy (Severe, Uncoded 03/09/25 15:48) Hives retuxin Adverse Reaction (Severe, Uncoded 03/09/25 15:48) Abdominal Pain Medication List - Last Reconciled 03/09/25 by Franklin Sanchez PA-C atorvastatin 20 mg PO BEDTIME 30 days calcitriol 0.25 mcg PO DAILY clobetasol 0.05% 1 appl topical DAILY fluocinonide 0.05% appl topical gabapentin 200 mg PO DAILY PRN levothyroxine 100 mcg PO DAILY lisinopril 2.5 mg PO DAILY loratadine 10 mg PO DAILY PRN magnesium oxide 250 mg PO BID prednisone 2.5 mg PO DAILY sodium bicarbonate 650 mg PO BID warfarin 5 mg See Protocol PO DAILY Tobacco use date assessed: 03/09/25 Dental Screening Dental Screen Date: 09/08/24 HPI f/u SLE/ CKD-4 HPI Details Patient is a 59-year-old female here today for a follow-up visit. Patient has a past medical history significant for SLE, hypothyroidism, hypertriglyceridemia, chronic anticoagulation use, former smoker. . 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 Most recent creatinine improve.. She does have repeat labs and follow up with her investigator fraud. ? Has been able to lose a significant amount weight due to lifestyle changes. Continues on anticoagulation without any overt signs of bleeding. Has trialed retuxin though had a terrible adverse reaction. ?? Has use magnesium supplementation in the past with good effect. At this point there is no further treatment that has been covered by insurance or patient has been able to tolerate for her glomerular nephritis. She has been told her lupus was in remission by her previous rheumatology provider. She is being evaluated at nephrology in [place] in his considering renal transplant. Needs up-to-date screening including a OBGYN Pap screening. .. Hypothyroidism:? Patient's thyroid has now normalized on lower dose levothyroxine 100 mcg .? Continues to follow Endocrinology as well . ? Hypertriglyceridemia: Has a history elevated triglycerides. Has been trying to manage her triglycerides with dietary modifications. Has upcoming of appointment with community theater actor. Laboratory Tests 11/14/24 02/25/25 08:20 14:31 RBC 3.66 L Hgb 10.9 L Creatinine 3.64 H 2.97 H Estimated GFR 13 16 Calcium 10.4 H D Cholesterol 167 25-OH Vitamin D To lucas 25.7 L PTH Intact 277.8 H PFSH Medical History Prediabetes SLE glomerulonephritis syndrome History of pulmonary embolism Vitamin D deficiency Hypertriglyceridemia Hypothyroidism Surgical History Hx of tubal ligation Family History Father Family history unknown Mother Hypertension Diabetes Deep vein thrombosis CVA (cerebral vascular accident) Brother CVA (cerebral vascular accident), Onset Age: 48 Brother CVA (cerebral vascular accident), Onset Age: 38 Social History Household Members: None Housing: House Alcohol intake: former Patient Tobacco Use Status: Former Tobacco user Tobacco use type: Cigarette e-Cigarette/Vaping Use: Never Used Second Hand Smoke Exposure: Yes service: No Current occupational status: employed 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 1. Little interest or pleasure in doing things: nearly every day 2. Feeling down, depressed, or hopeless: not at all 3. Trouble falling or staying asleep, or sleeping too much: not at all 4. Feeling tired or having little energy: not at all 5. Poor appetite or overeating: not at all 6. Feeling bad about yourself - or that you are a failure or have let yourself or your family down: not at all 7. Trouble concentrating on things, such as reading the newspaper or watching television: not at all 8. Moving or speaking so slowly that other people could have noticed. Or the opposite - being so fidgety or restless that you have been moving around a lot more than usual: not at all 9. Thoughts that you would be better off or of hurting yourself in some way: not at all Total score: 3 Depression Screening Interpretation: Positive Depression Screening Done: Yes Source: Developed by Drs. Gino Young, Seble Chahal, Dennis Zendejas and colleagues, with an educational clara from [employer]. Thrive Questionnaire Date Thrive assessed: 09/08/24 I am a: Patient What is your living situation today?: I have a steady place to live Within the past 12 months, did the food you bought not last and you didn't have the money to get more?: I choose not to answer this question Within the past 12 months, did you worry whether your food would run out before you got money to buy more?: I choose not to answer this question Do you have trouble paying for medicines?: No Do you have trouble getting transportation to medical appointments?: Yes Do you have trouble paying your heating and electricity bill?: No Do you have trouble taking care of your child, family member or friend?: I choose not to answer this question Do you have trouble with day-to-day activities such as bathing, preparing meals, shopping, managing finances, etc.?: I choose not to answer this question Are you currently unemployed and looking for a job?: I choose not to answer this question Are you interested in more education?: I choose not to answer this question Please select the resources that you would like help with: None Currently or been in a relationship where the following occur: I choose not to answer THRIVE Score: 1 AUDIT C Alcohol Use Questionnaire (AUDIT-C) 1. How often do you have a drink containing alcohol?: Never Total Score: 0 CHE-7 AMB Questionnaire CHE-7 Date CHE - 7 assessed: 09/08/24 Feeling nervous, anxious, or on edge: 0 = Not at all Not being able to stop or control worryin = Not at all Worrying too much about different things: 0 = Not at all Trouble relaxin = Not at all Being so restless that it is hard to sit still: 0 = Not at all Becoming easily annoyed or irritable: 0 = Not at all Feeling afraid as if something awful might happen: 0 = Not at all Total CHE-7 score (0-4 normal; 5-9 mild; 10-14 moderate; 15-21 severe): 0 Source: Developed by Drs. Gino Young, Seble Chahal, Dennis Zendejas and colleagues, with an educational clara from [employer]. Review of Systems Const Denies headache(s) Eyes Denies loss of vision ENT Denies vertigo, Denies dizziness, Denies headache(s) and Denies sore throat Card Denies chest pain, Denies leg edema and Denies lightheadedness Resp Denies cough, Denies hemoptysis and Denies wheezing GI Denies abdominal pain, Denies melena, Denies constipation, Denies diarrhea and Denies vomiting Denies urinary frequency, Denies dysuria and Denies urinary urgency Musc Denies arthralgias, Denies joint swelling, Denies numbness and Denies tingling Neuro Denies Abnormal speech present, Denies behavioral changes, Denies vertigo, Denies dizziness, Denies headache(s), Denies loss of vision, Denies memory loss, Denies numbness and Denies tingling Psych Denies anxiety, Denies behavioral changes, Denies depression, Denies memory loss and Denies panic attacks Davie/Lymph Denies easy bleeding and Denies easy bruising Aller/Immun Denies wheezing Physical exam (Primary Care) Vital Signs: Last Vital Signs Temp 97.3 F 03/09/25 15:35 Pulse 71 03/09/25 15:35 BP 120/66 03/09/25 15:35 Pulse Ox 98 03/09/25 15:35 Oxygen Delivery Method Room Air 03/09/25 15:35 BMI result Body Mass Index 26.6 Tobacco/Smoking Status: Tobacco use Status Tobacco use date assessed 03/09/25 03/09/25 15:45 Patient Tobacco Use Status Former Tobacco user 03/09/25 15:45 Tobacco use type Cigarette 03/09/25 15:45 e-Cigarette/Vaping Use Never Used 03/09/25 15:45 PHQ-9: PHQ-9 Score PHQ-9: Total score 3 03/09/25 15:48 Depression Screening Interpretation: Positive Thrive Assessment: Date of Thrive Assessment Date Thrive assessed 09/08/24 03/09/25 15:45 Currently or been in a relationship where the following occur: I choose not to answer Const General: healthy appearing, no acute distress, alert and awake Nutritional Appearance: well nourished Orientation/consciousness: oriented to person, oriented to place and oriented to time HENMT Ears: TM's normal bilaterally General nose exam: Normal nasal mucous membranes and turbinates present Eyes Conjunctivae: conjunctivae normal Sclerae: sclerae normal Pupils: Equal, round and reactive pupils present Neck Neck: Yes no lymphadenopathy and Yes no JVD Thyroid: Thyroid normal Carotids: no bruits Resp Effort & Inspection: normal respiratory effort and not tachypneic Auscultation: no crackles, no rales, no rhonchi and no wheezes Cardio Rate: regular rate Rhythm: regular rhythm Heart sounds: no murmurs and normal S1 and S2 GI Palpation (GI): Soft to palpation, nontender, no hepatomegaly and no splenomegaly Auscultation: normal bowel sounds Skin General skin exam: no rashes or lesions noted and dry skin Neuro General: oriented to person, oriented to place and oriented to time Cranial nerves: Yes Equal, round and reactive pupils present Speech: No Abnormal speech present Gait exam (Neuro): Normal gait present Motor exam (neuro): no tremor noted Extrem Right upper extremity: full ROM Left upper extremity: full ROM Right lower extremity: full ROM; no edema Left lower extremity: full ROM; no edema Psych Mental Status: mental status grossly normal Speech and movement: Normal speech and movement present Affect: normal affect Attitude: cooperative Thought process: Normal thought process present Coding Level of Care Code Est Pt Level 4 (29233) Diagnoses 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 E03.8; E06.3 Hypothyroidism type: due to Yaa's thyroiditis 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 Will continue current dose of levothyroxine (2) Lupus (systemic lupus erythematosus): Comment: onset Treated with Cytoxan and prednisone Coumadin throughout Cyclosporin 2005 DC due to epigastric pain CellCept 2008 up titrated to 3 g daily, developed worsening proteinuria Rituximab 2 doses, 2 weeks apart 2010 Believes that she took hydroxychloroquine and discontinued it due to tinnitus ?! Benlysta 02/2012 was helpful especially for skin lesions. Discontinued due to loss of insurance Acthar gel 2016 took it for about a year inconsistently Repeat kidney biopsy 04/2022 showed class 3 and 5 nephritis. Received 1 dose of rituximab 08/2022 with some improvement Benlysta 12/2023. DC 02/2024. Could not afford co-pay CellCept tried again 02/2024. DC'd after 1 dose due to rash Code(s): M32.9 - Systemic lupus erythematosus, unspecified Category: Medical Qualifiers: Systemic lupus erythematosus organ involvement: glomerular disease Systemic lupus erythematosus type: other Qualified Code(s): M32.14 - Glomerular disease in systemic lupus erythematosus Plan: She has been told by Rheumatology her lupus was in remission. Now working with Nephrology on receiving a transplant kidney and discussing possible dialysis. (3) SLE glomerulonephritis syndrome: Comment: onset [id number] class 3 and class 5 nephritis, low C3, low C4 Repeat kidney biopsy 04/2022 showed class 3 and 5 nephritis. Received 1 dose of rituximab 08/2022 with some improvement Code(s): M32.14 - Glomerular disease in systemic lupus erythematosus Category: Medical Plan: Continues to follow [place] [facility]. She reports her autoimmune lupus has been in remission. Her most recent GFR reduced to 14 though in the setting of having an infection COVID. Most recent renal function still impaired though has improved. She is speaking with transplant nephrology in [facility] about dialysis and renal transplant. She is undergoing evaluation for renal transplant (4) CKD (chronic kidney disease) stage 4, GFR 15-29 ml/min: Code(s): N18.4 - Chronic kidney disease, stage 4 (severe) Category: Medical Plan: Most recent renal function stable with creatinine at 2.9. As per HPI patient followed by Nephrology for her chronic kidney disease secondary to her lupus. Will continue to abstain from nephrotoxins (5) Hypertriglyceridemia: Code(s): E78.1 - Pure hyperglyceridemia Category: Medical Plan: Continues to follow dietary modifications to reduce her triglycerides. She is due for repeat fasting lipid panel. Followed by [facility]. Orders: Orders Complete Blood Count no Diff 03/09/25 E78.1 - Pure hyperglyceridemia Vitamin D 25-OH Total 03/09/25 E55.9 - Vitamin D deficiency, unspecified TSH reflex Free T4 03/09/25 E03.8 - Other specified hypothyroidism, E06.3 - Autoimmune thyroiditis Lipid Panel 03/09/25 E78.1 - Pure hyperglyceridemia Comprehensive [place]. Panel Fast 03/09/25 E78.1 - Pure hyperglyceridemia Referrals ENGINE TESTING SUPERVISOR Referral Z12.4 - Encounter for screening for malignant neoplasm of cervix
[2025-03-09 15:35] VITALS: BP 120/66; PULSE 71; TEMP 36.3; O2SAT 98; BMI 26.6
== END 2025-03-09 16:15 | disposition home or self-care (01) ==
LOC: HO.HMCH 15:28
PROVIDERS: PCP Physician Assistant; Visit Provider Physician Assistant
DX: E03.8 Other specified hypothyroidism (principal); E06.3 Autoimmune thyroiditis; M32.14 Glomerular disease in systemic lupus erythematosus; N18.4 Chronic kidney disease, stage 4 (severe); E78.1 Pure hyperglyceridemia

== ENCOUNTER 2025-03-25 15:39 | Outpatient (REF) | payer OTHER, MEDICAID, SELFPAY ==
--- NOTE | ~2025-03-25 | MM_ITS ---
EXAMINATION: MM SCREENING DIGITAL BREAST TOMOSYNTHESIS, BILATERAL CLINICAL INFORMATION: Screening. Asymptomatic. COMPARISON: Mammography: Comparison is made with available priors TECHNIQUE: Digital breast mammography with tomosynthesis is performed in both the craniocaudal and mediolateral oblique views along with computer-aided detection (CAD). FINDINGS: The breasts are heterogeneously dense, which may obscure small masses (ACR BI-RADS breast composition Category c). Bilateral scattered asymmetries are stable. There are no significant masses, abnormal calcifications, or other abnormalities. MM/MM tomosynthesis screening BI IMPRESSION: No mammographic evidence of malignancy. ASSESSMENT: BI-RADS BI-RADS 2 - Benign Findings RECOMMENDATION: Routine annual mammography screening. 1 year F/U This examination should not preclude the clinical evaluation of a suspicious palpable abnormality. This patient's information was entered into a reminder system with a target due date for their next mammogram. Electronically signed by: Argentina Borges DO 03/30/2025 09:20 AM EDT
--- OUTSIDE RECORDS SUMMARY | 2025-03-25 16:25 | XMS_ITS | Encounter Summary ---
Author Organization [facility] Address [address] [place] [address] Phone Care Team Providers Care Surgical Garment Assembly Supervisor Name Role Phone Unavailable Primary Care Provider Unavailabl e Encounter Details Date Type Department Care Team (Late st Contact Info) Description 08/10/2022 Telephone [facility] [address] [place] [address] Roe Morrissey MD Social History [...] Iris Gee - 08/10/2022 10:19 AM EST [facility] insurance verification called, pt will need [...] EDT) Calcium 9.1 8.4 - 10.2 mg/dL [place] 11/06/2022 4:20 PM EDT 11/06/2022 4:20 PM EDT Roe Morrissey MD LAB BLOOD ORDERABLES Final Res ult [place] * (ABNORMAL) Creatinine (11/06/2022 4:20 PM EDT) Creatinine Serum 2.59(H) 0.5 - 1.4 mg/dL [place] eGFR (Calc) 19 ADRIAN Comment: NOTE: For -[place] individuals, multiply the result by 1.210. Chronic Kidney Disease: Estimated GFR < 60 mL/min/1.73m2 Severe Kidney Disease: Estimated GFR < 15 mL/min/1.73m2 11/06/2022 4:20 PM EDT 11/06/2022 4:20 PM EDT Roe Morrissey MD LAB BLOOD ORDERABLES Final Res ult Performing Organization Address City/[facility]/ZIP Co de Phone Number [place] * (ABNORMAL) BUN (11/06/2022 4:20 PM EDT) BUN 44(H) 9 - 16 mg/dL [place] 11/06/2022 4:20 PM EDT 11/06/2022 4:20 PM [...]
--- OUTSIDE RECORDS SUMMARY | 2025-03-25 16:25 | XMS_ITS | Clinical Summary ---
Author Organization [facility] Address [address] [place] [address] Care Team Providers Care Ob Gyn Name Role Phone Franklin Sanchez Primary Care Provider [phone] Allergies Active Allergy Reactions Criticality Noted Date [...] propionate (FLONASE) 50 mcg/actuation nasal spray SMARTSI Larsen(s) Both Nares Twice Daily 5 Active sodium bicarbonate 650 mg tablet SMARTSI Tablet(s) By Mouth Twice Daily 5 Active predniSONE (DELTASONE) 2.5 mg tablet 5 Active Active Problems No known active problems Encounters Date Type Department Care Team Description 03/19/2025 Documentation [facility] Transplant Department [address] [place] [address] Delores Sepulveda LICSW 02/18/2025 Orders Only [facility] Transplant Department [address] [place] [address] Zenobia Zepeda RN Pre-transplant evaluation for end stage renal disease (Primary Dx); Chronic kidney disease, stage IV (severe) (HCC) 02/18/2025 Documentation [facility] Transplant Department [address] [place] [address] Seema Arredondo RN ABO Dual Validation 02/18/2025 Orders Only [facility] Transplant Department [address] [place] [address] Zenobia Zepeda RN 02/12/2025 Telephone [facility] Transplant Department [address] [place] [address] Zenobia Zepeda recreational vehicle repairer - Kidney Txp 01/12/2025 Orders Only External Imaging [address] [place] [address] Radiology, External 01/12/2025 Orders Only External Imaging [address] [place] [address] Radiology, External from Last 3 Months Family History Medical [...] Info) Description 12/08/2025 8:20 AM EDT Follow-Up [facility] Renal Transplant [address] [place] [address] Franklin Flowers MD [address] [place] [address] 12/08/2025 9:00 AM EDT Social Work [facility] Renal Transplant [address] [place] [address] Delores Sepulveda LICSW [address] [place] [address] Health Maintenance Due Date Last Done Comments [...] Screening Completed 12/11/2024 Procedures * Due to [place] state law, this organization might not be sharing negative HIV tests. Procedure Name Priority Date/Time Associated Diagnosis Comments TYPE AND SCREEN - TRANSPLANT MANUAL ABSTRACTION Routine 02/12/2025 4:03 PM EDT ECHO OUTSIDE FILMS Routine 01/29/2025 11 :36 AM EDT HEPATITIS C ANTIBODY W/REFLEX TO HCV RNA, [...] Health Maintenance Results * Due to [place] state law, this organization might not be sharing negative HIV tests. * TYPE AND SCREEN - TRANSPLANT MANUAL ABSTRACTION (02/12/2025 4:03 PM EDT) ABO AB [facility] RH Positive [facility] 02/12/2025 4:03 PM EDT us Unknown Provider MD LAB HISTORICAL RESULTS Final Result Performing Organization Address City/State/[facility] Co de Phone Number [facility] [address] [place] [address] * Echo Outside Films (01/29/2025 11:36 AM EDT) Narrative 01/29/2025 11:36 AM EDT This order has been auto-finalized and does not contain a result. us External Radiology CV ECHO PROCEDURES Final Resu lt * (ABNORMAL) CBC Auto Differential (12/11/2024 12:08 PM EDT) WBC 6.6 3.8 - 10.8 10*3/uL 12/11/2024 12:32 PM EDT [facility] RBC 3.52(L) 3.80 - 5.10 10*6/uL 12/11/2024 12:32 PM EDT [facility] Hemoglobin 10.4(L) 11.7 - 15.5 g/dL 12/11/2024 12:32 PM EDT [facility] Hematocrit 33.1(L) 35.0 - 45.0 % 12/11/2024 12:32 PM EDT [facility] MCV 94.0 80.0 - 100.0 fL 12/11/2024 12:32 PM EDT [facility] MCH 29.5 27.0 - 33.0 pg 12/11/2024 12:32 PM EDT [facility] MCHC 31.4(L) 32.0 - 36.0 g/dL 12/11/2024 12:32 PM EDT [facility] RDW 13.3 11.0 - 15.0 % 12/11/2024 12:32 PM EDT [facility] Platelets 289 140 - 400 10*3/uL 12/11/2024 12:32 PM EDT [facility] MPV 10.4 7.5 - 12.5 fL 12/11/2024 12:32 PM EDT [facility] Neutrophil % 58.9 % 12/11/2024 12:32 PM EDT [facility] Immature Grans % 0.5 0.0 - 0.9 % 12/11/2024 12:32 PM EDT [facility] Lymphocyte % 30.5 % 12/11/2024 12:32 PM EDT [facility] Monocyte % 5.8 % 12/11/2024 12:32 PM EDT [facility] Eosinophil % 3.8 % 12/11/2024 12:32 PM EDT [facility] Basophil % 0.5 % 12/11/2024 12:32 PM EDT [facility] Neutrophil # 3.86 1.50 - 7.80 10*3/uL 12/11/2024 12:32 PM EDT [facility] Immature Grans # 0.03 <=0.03 10*3/uL 12/11/2024 12:32 PM EDT [facility] Lymphocyte # 2.00 0.85 - 3.90 10*3/uL 12/11/2024 12:[address] [facility] Monocyte # 0.40 0.20 - 0.95 10*3/uL 12/11/2024 12:32 PM EDT [facility] Eosinophil # 0.30 0.02 - 0.50 10*3/uL 12/11/2024 12:[address] [facility] Basophil # <0.03 0.00 - 0.20 10*3/uL 12/11/2024 12:[address] [facility] nRBC % 0.0 /100 WBCs 12/11/2024 12:[address] [facility] nRBC # <0.01 <0.01 10*3/uL 12/11/2024 12:[address] [facility] Blood Structure of peripheral vein / Unknown Venipuncture / Unknown 12/11/2024 12:08 PM EDT 12/11/2024 12:24 PM EDT us Franklin Flowers MD LAB BLOOD ORDERABLES [place] Result [facility] [address] [place] [address], * Hepatitis C Antibody w/Reflex to PCR (12/11/2024 12:08 PM EDT) Hepatitis C Antibody NON-REACT MARSHALL NON-REACT MARSHALL 12/12/2024 6:33 AM EDT [facility] Comment: HCV antibody was non-reactive. There is no laboratory evidence of HCV infection. In most cases, no further action is required. However, if recent HCV exposure is suspected, a test for HCV RNA (test code 20196) is suggested. For additional information please refer to http://[employer] [place].[employer]/faq/UHU03y5 (This link is being provided for informational/ educational purposes only.) Blood Structure of peripheral vein / Unknown Venipuncture / Unknown 12/11/2024 12:08 PM EDT 12/11/2024 12:23 PM EDT Narrative [facility] - 12/12/2024 6:33 AM EDT [facility] Received Date: Franklin Flowers MD LAB BLOOD ORDERABLES [place] l Result Performing Organization Address City/[facility]/ZIP Co de Phone Number [facility] [address] [facility] [address] [facility], [place] [address], [place] [phone] [facility] [address] [facility] [address] [facility], [place] [address], [place] [phone] * Phosphorus (12/11/2024 12:08 PM EDT) Phosphorus 3.4 2.5 - 4.5 mg/dL 12/11/2024 12:59 PM EDT [facility] LAB[facility] Blood Structure of peripheral vein / Unknown Venipuncture / Unknown 12/11/2024 12:08 PM EDT 12/11/2024 12:26 PM EDT Franklin Flowers MD LAB BLOOD ORDERABLES [place] Result [facility] [address] [place] [address], * (ABNORMAL) Microalbumin, Random Urine with Creatinine (08/07/2023 9:01 AM EST) Creatinine, Random Urine 92 20 - 275 mg/dL 08/08/2023 6:45 PM EST [facility] Microalbumin 150.8 mg/dL 08/08/2023 6:45 PM EST [facility] Comment: Verified by repeat analysis. Reference Range Not established Microalbumin/Crea tinine Ratio, Random Urine 1,639(H) <30 mcg/mg creat 08/08/2023 6:45 PM EST [facility] Comment: The ADA defines abnormalities in albumin [...] ORDERABLES Final Resul t [facility] [address] [facility] 3rd Floor, [place] [address], [place] [phone] [facility] [address] [place] [address] * (ABNORMAL) Vitamin D, 25-Hydroxy, Total, Immunoassay (06/05/2023 11:53 AM EDT) Calcidiol+ercalc idiol 22(L) 30 - 100 ng/mL 06/05/2023 9:28 PM EDT [facility] Comment: Vitamin D Status 25-OH Vitamin D: Deficiency: <20 ng/mL Insufficiency: 20 - 29 ng/mL Optimal: > or = 30 ng/mL For 25-OH Vitamin D testing on patients on D2-supplementation and patients for whom quantitation of D2 and D3 fractions is required, the QuestAssureD(TM) 25-OH VIT D, (D2,D3), LC/MS/MS is recommended: order code 48799 (patients >2yrs). See Note 1 Note 1 For additional information, please refer to http://education.[employer]/faq/OKY383 (This link is being provided for informational/ educational purposes only.) Blood Structure of peripheral vein / Unknown 06/05/2023 11:53 AM EDT 06/05/2023 7:56 PM EDT Narrative [facility] - 06/09/2023 5:04 AM EDT FASTING:NO [facility] LAB BLOOD ORDERABLES Final Resul t Performing Organization Address City/[facility]/ZIP Co de Phone Number [facility] [address] [place] [address], [place] [phone] [facility] [address] [address] * (ABNORMAL) PTH, Intact (without Calcium) (06/05/2023 11:53 AM EDT) Parathyroid Hormone, Intact 205(H) 16 - 77 pg/mL 06/06/2023 1:16 AM EDT [facility] Comment: Interpretive Guide Intact PTH Calcium ------- Normal Parathyroid Normal Normal Hypoparathyroidism Low or Low Normal Low Hyperparathyroidism Primary Normal or High High Secondary High Normal or Low Tertiary High High Non-Parathyroid Hypercalcemia Low or Low Normal High Blood Structure of peripheral vein / Unknown 06/05/2023 11:53 AM EDT 06/05/2023 11:02 PM EDT Narrative [facility] - 06/09/2023 5:04 AM EDT FASTING:NO [facility] LAB BLOOD ORDERABLES Final Resul t Performing Organization Address City/[facility]/ZIP Co de Phone Number [facility] [address], [place] [address], [place] [phone] [facility] [address] [address] * (ABNORMAL) Renal Function Panel (06/05/2023 11:53 AM EDT) Glucose 89 65 - 139 mg/dL 06/05/2023 10:49 PM EDT [facility] Comment: Non-fasting reference interval BUN 39(H) 7 - 25 mg/dL 06/05/2023 10:49 PM EDT [facility] Creatinine 2.61(H) 0.50 - 1.03 mg/dL 06/05/2023 10:49 PM EDT [facility] eGFR 21(L) > OR = 60 mL/min/1. 73m2 06/05/2023 10:49 PM EDT [facility] Bun/Creatinine Ratio 15 6 - 22 (calc) 06/05/2023 10:49 PM EDT [facility] Sodium 137 135 - 146 mmol/L 06/05/2023 10:49 PM EDT [facility] Potassium 4.6 3.5 - 5.3 mmol/L 06/05/2023 10:49 PM EDT [facility] Chloride 111(H) 98 - 110 mmol/L 06/05/2023 10:49 PM EDT [facility] Carbon Dioxide 18(L) 20 - 32 mmol/L 06/05/2023 10:49 PM EDT [facility] Calcium 9.8 8.6 - 10.4 mg/dL 06/05/2023 10:49 PM EDT [facility] Phosphate 3.5 2.5 - 4.5 mg/dL 06/05/2023 10:49 PM EDT [facility] Albumin 4.0 3.6 - 5.1 g/dL 06/05/2023 10:49 PM EDT [facility] Blood Structure of peripheral vein / Unknown 06/05/2023 11:53 AM EDT 06/05/2023 7:56 PM EDT Narrative [facility] - 06/09/2023 5:04 AM EDT FASTING:NO us Anupama Bynum DO LAB BLOOD ORDERABLES Final Resul t [facility] [address] [facility] [address], [place] [address], [facility] [address] [place] [address] from Last 3 Months or Most Recently Relevant to Health Maintenance Insurance * Guarantor: Aneta Gan Account Type Relation to Patient Date of Phone Billing Address Personal/Family Self 1965 [phone] (Work) [address] [place] [address] [facility] * Guarantor: Judith Gana Account Type Relation to Patient Date of Phone Billing Address Transplant Self 1965 [phone] (Work) [address] [place] [address] [facility] Advance Directives Documents on File Type Date Recorded 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
--- OUTSIDE RECORDS SUMMARY | 2025-03-25 16:25 | XMS_ITS | Clinical Summary ---
Author Organization [facility] Address [address] [place] [address] Care Team Providers Care Roll Capper Name Role Phone Franklin Sanchez Primary Care [...] Influenza Vaccine 03/06/2025 [place] [address] [facility] Care Teams Roll Capper Relationship Specialty Start Date End Date Franklin Sanchez PA [facility] [place] [address] PCP - General Adult Health - PA/APNP/SUPERINTENDENT DRILLING AND PRODUCTION/APPLICATIONS COORDINATOR 07/20/21
== END 2025-03-25 15:40 | disposition home or self-care (01) ==
LOC: HO.MAMMO 15:39
PROVIDERS: PCP Physician Assistant; Visit Provider Physician Assistant
DX: Z12.31 Encounter for screening mammogram for malignant neoplasm of breast (principal)
CPT/HCPCS: 77063; 77067

== ENCOUNTER → 2025-03-25 16:00 | Outpatient (BNV) | payer OTHER, MEDICAID, SELFPAY | PROVIDERS: PCP Physician Assistant; Visit Provider Internal Medicine | DX: Z12.31 Encounter for screening mammogram for malignant neoplasm of breast (principal) | CPT/HCPCS: 77063; 77067 ==

== ENCOUNTER 2025-03-31 14:54 | Outpatient (AMB) | payer OTHER, MEDICAID, SELFPAY ==
[2025-03-31 15:02] LABS: Prothrombin Time Whole Bld POC 28.0 sec (11.1-13.5); ~PT, ~INR - Anti Coag Clinic 2.3 (0.9-1.1)
--- NOTE | 2025-03-31 15:02 | MHC.OFFVISCO ---
Intake Intake Visit Reasons: Anticoagulation Allergies rituximab (From Rituxan) Allergy (Severe, Verified 03/31/25 14:58) Anaphylaxis cephalexin (From Keflex) Allergy (Unknown, Verified 03/31/25 14:58) RED+ITCHY,RASH Cephalosporins (CEPHALOSPORINS) Allergy (Unknown, Verified 03/31/25 14:58) RED+ITCHY Sulfa (Sulfonamide Antibiotics) (SULFA(SULFONAMIDE ANTIBIOTICS)) Allergy (Unknown, Verified 03/31/25 14:58) RED+ITCHY mycophenolate mofetil (From CellCept) Adverse Reaction (Intermediate, Verified 03/31/25 14:58) rash cellcept Allergy (Severe, Uncoded 03/31/25 14:58) Hives retuxin Adverse Reaction (Severe, Uncoded 03/31/25 14:58) Abdominal Pain Medication List - Last Reconciled 03/31/25 by Joann Braden, RN atorvastatin 20 mg PO BEDTIME 30 days calcitriol 0.25 mcg PO DAILY clobetasol 0.05% 1 appl topical DAILY fluocinonide 0.05% appl topical gabapentin 200 mg PO DAILY PRN levothyroxine 100 mcg PO DAILY lisinopril 2.5 mg PO DAILY loratadine 10 mg PO DAILY PRN magnesium oxide 250 mg PO BID prednisone 2.5 mg PO DAILY sodium bicarbonate 650 mg PO BID warfarin 5 mg See Protocol PO DAILY Nursing Note INR: 2.3 in therapeutic range of 2-3 Medications and supplements reviewed No changes in health, diet, medications, or supplements, Denies any signs and symptoms of bleeding or bruising or clotting. 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
--- OUTSIDE RECORDS SUMMARY | 2025-03-31 15:47 | XMS_ITS | Clinical Summary ---
Author Organization [facility] Address [address] [place] [address] Care Team Providers Care It Admin Name Role Phone Franklin Sanchez Primary Care Provider [phone] Allergies Active Allergy Reactions Criticality Noted Date [...] propionate (FLONASE) 50 mcg/actuation nasal spray SMARTSI [place](s) Both Nares Twice Daily 5 Active sodium bicarbonate 650 mg tablet SMARTSI Tablet(s) By Mouth Twice Daily 5 Active predniSONE (DELTASONE) 2.5 mg tablet 5 Active Active Problems No known active problems Encounters Date Type Department Care Team Description 03/19/2025 Documentation [facility] Transplant Department [address] [place] [address] Delores Sepulveda LICSW 02/18/2025 Orders Only [facility] Transplant Department [address] [place] [address] Zenobia Zepeda RN Pre-transplant evaluation for end stage renal disease (Primary Dx); Chronic kidney disease, stage IV (severe) (HCC) 02/18/2025 Documentation [facility] Transplant Department [address] [place] [address] Seema Arredondo RN ABO Dual Validation 02/18/2025 Orders Only [facility] Transplant Department [address] [place] [address] Zenobia Zepeda RN 02/12/2025 Telephone [facility] Transplant Department [address] [place] [address] Zenobia Zepeda administration professional - Kidney Txp 01/12/2025 Orders Only External Imaging [address] [place] [address] Radiology, External 01/12/2025 Orders Only External Imaging [address] [place] [address] Radiology, External from Last 3 Months Family [...] Info) Description 12/08/2025 8:20 AM EDT Follow-Up [facility] Renal Transplant [address] [place] [address] Franklin Flowers MD [address] [place] [address] 12/08/2025 9:00 AM EDT Social Work [facility] Renal Transplant [address] [place] [address] Delores Sepulveda LICSW [address] [place] [address] Health Maintenance Due Date Last Done Comments [...] (02/12/2025 4:03 PM EDT) ABO AB [facility] RH Positive [facility] 02/12/2025 4:03 PM EDT us Unknown Provider MD LAB HISTORICAL RESULTS Final Result Performing Organization Address City/State/[facility] Co de Phone Number [facility] [address] [place] [address] * Echo Outside Films (01/29/2025 11:36 AM EDT) Narrative 01/29/2025 11:36 AM EDT This order has been auto-finalized and does not contain a result. us External Radiology CV ECHO PROCEDURES Final Resu lt * (ABNORMAL) CBC Auto Differential (12/11/2024 12:08 PM EDT) WBC 6.6 3.8 - 10.8 10*3/uL 12/11/2024 12:32 PM EDT [facility] RBC 3.52(L) 3.80 - 5.10 10*6/uL 12/11/2024 12:32 PM EDT [facility] Hemoglobin 10.4(L) 11.7 - 15.5 g/dL 12/11/2024 12:32 PM EDT [facility] Hematocrit 33.1(L) 35.0 - 45.0 % 12/11/2024 12:32 PM EDT [facility] MCV 94.0 80.0 - 100.0 fL 12/11/2024 12:32 PM EDT [facility] MCH 29.5 27.0 - 33.0 pg 12/11/2024 12:32 PM EDT [facility] MCHC 31.4(L) 32.0 - 36.0 g/dL 12/11/2024 12:32 PM EDT [facility] RDW 13.3 11.0 - 15.0 % 12/11/2024 12:32 PM EDT [facility] Platelets 289 140 - 400 10*3/uL 12/11/2024 12:32 PM EDT [facility] MPV 10.4 7.5 - 12.5 fL 12/11/2024 12:32 PM EDT [facility] Neutrophil % 58.9 % 12/11/2024 12:32 PM EDT [facility] Immature Grans % 0.5 0.0 - 0.9 % 12/11/2024 12:32 PM EDT [facility] Lymphocyte % 30.5 % 12/11/2024 12:32 PM EDT [facility] Monocyte % 5.8 % 12/11/2024 12:32 PM EDT [facility] Eosinophil % 3.8 % 12/11/2024 12:32 PM EDT [facility] Basophil % 0.5 % 12/11/2024 12:32 PM EDT [facility] Neutrophil # 3.86 1.50 - 7.80 10*3/uL 12/11/2024 12:32 PM EDT [facility] Immature Grans # 0.03 <=0.03 10*3/uL 12/11/2024 12:32 PM EDT [facility] Lymphocyte # 2.00 0.85 - 3.90 10*3/uL 12/11/2024 12:32 PM EDT [facility] Monocyte # 0.40 0.20 - 0.95 10*3/uL 12/11/2024 12:32 PM EDT [facility] Eosinophil # 0.30 0.02 - 0.50 10*3/uL 12/11/2024 12:32 PM EDT [facility] Basophil # <0.03 0.00 - 0.20 10*3/uL 12/11/2024 12:32 PM EDT [facility] nRBC % 0.0 /100 WBCs 12/11/2024 12:32 PM EDT [facility] nRBC # <0.01 <0.01 10*3/uL 12/11/2024 12:32 PM EDT [facility] Blood Structure of peripheral vein / Unknown Venipuncture / Unknown 12/11/2024 12:08 PM EDT 12/11/2024 12:24 PM EDT us Franklin Flowers MD LAB BLOOD ORDERABLES [place] Result [facility] [address] [place] [address], * Hepatitis C Antibody w/Reflex to PCR (12/11/2024 12:08 PM EDT) Hepatitis C Antibody NON-REACT MARSHALL NON-REACT MARSHALL 12/12/2024 6:[address] ED[address] [facility] Comment: HCV antibody was non-reactive. There is no laboratory evidence of HCV infection. In most cases, no further action is required. However, if recent HCV exposure is suspected, a test for HCV RNA (test code 51190) is suggested. For additional information please refer to http://EarthLink.Calera/faq/LIW53j0 (This link is being provided for informational/ educational purposes only.) Blood Structure of peripheral vein / Unknown Venipuncture / Unknown 12/11/2024 12:08 PM EDT 12/11/2024 12:23 PM EDT Narrative [facility] - 12/12/2024 6:33 AM EDT [facility] Received Date: Franklin Flowers MD LAB BLOOD ORDERABLES [place] l Result Performing Organization Address City/[facility]/ZIP Co de Phone Number [facility] [address] [facility] [address] [facility], [place] [address], [place] [phone] [facility] [address] [facility] [address] [facility], [place] [address], [place] [phone] * Phosphorus (12/11/2024 12:08 PM EDT) Phosphorus 3.4 2.5 - 4.5 mg/dL 12/11/2024 12:59 PM EDT [facility] Blood Structure of peripheral vein / Unknown Venipuncture / Unknown 12/11/2024 12:08 PM EDT 12/11/2024 12:26 PM EDT Franklin Flowers MD LAB BLOOD ORDERABLES [place] Result [facility] [address] [place] [address], * (ABNORMAL) Microalbumin, Random Urine with Creatinine (08/07/2023 9:01 AM EST) Creatinine, Random Urine 92 20 - 275 mg/dL 08/08/2023 6:45 PM EST [facility] Microalbumin 150.8 mg/dL 08/08/2023 6:45 PM EST [facility] Comment: Verified by repeat analysis. Reference Range Not established Microalbumin/Crea tinine Ratio, Random Urine 1,639(H) <30 mcg/mg creat 08/08/2023 6:45 PM EST [facility] Comment: The ADA defines abnormalities in albumin [...] ORDERABLES Final Resul t [facility] [address] [facility] [address] Floor, [place] [address], [place] [phone] [facility] [address] [facility] [address] [place] [address] * (ABNORMAL) Vitamin D, 25-Hydroxy, Total, Immunoassay (06/05/2023 11:53 AM EDT) Calcidiol+ercalc idiol 22(L) 30 - 100 ng/mL 06/05/2023 9:28 PM EDT [facility] Comment: Vitamin D Status 25-OH Vitamin D: Deficiency: <20 ng/mL Insufficiency: 20 - 29 ng/mL Optimal: > or = 30 ng/mL For 25-OH Vitamin D testing on patients on D2-supplementation and patients for whom quantitation of D2 and D3 fractions is required, the QuestAssureD(TM) 25-OH VIT D, (D2,D3), LC/MS/MS is recommended: order code 30900 (patients >2yrs). See Note 1 Note 1 For additional information, please refer to http://education.Magpower.Paired Health/faq/WGZ780 (This link is being provided for informational/ educational purposes only.) Blood Structure of peripheral vein / Unknown 06/05/2023 11:53 AM EDT 06/05/2023 7:56 PM EDT Narrative [facility] - 06/09/2023 5:04 AM EDT FASTING:NO [facility] LAB BLOOD ORDERABLES Final Resul t Performing Organization Address City/[facility]/ZIP Co de Phone Number [facility] [address], [place] [address], [place] [phone] [facility] [address] [address] * (ABNORMAL) PTH, Intact (without Calcium) (06/05/2023 11:53 AM EDT) Parathyroid Hormone, Intact 205(H) 16 - 77 pg/mL 06/06/2023 1:16 AM EDT [facility] Comment: Interpretive Guide Intact PTH Calcium ------- Normal Parathyroid Normal Normal Hypoparathyroidism Low or Low Normal Low Hyperparathyroidism Primary Normal or High High Secondary High Normal or Low Tertiary High High Non-Parathyroid Hypercalcemia Low or Low Normal High Blood Structure of peripheral vein / Unknown 06/05/2023 11:53 AM EDT 06/05/2023 11:02 PM EDT Narrative [facility] - 06/09/2023 5:04 AM EDT FASTING:NO [facility] LAB BLOOD ORDERABLES Final Resul t Performing Organization Address City/[facility]/ZIP Co de Phone Number [facility] [address], [place] [address], [place] [phone] [facility] [address] [address] * (ABNORMAL) Renal Function Panel (06/05/2023 11:53 AM EDT) Glucose 89 65 - 139 mg/dL 06/05/2023 10:49 PM EDT [facility] Comment: Non-fasting reference interval BUN 39(H) 7 - 25 mg/dL 06/05/2023 10:49 PM EDT [facility] Creatinine 2.61(H) 0.50 - 1.03 mg/dL 06/05/2023 10:49 PM EDT [facility] eGFR 21(L) > OR = 60 mL/min/1. 73m2 06/05/2023 10:49 PM EDT [facility] Bun/Creatinine Ratio 15 6 - 22 (calc) 06/05/2023 10:49 PM EDT [facility] Sodium 137 135 - 146 mmol/L 06/05/2023 10:49 PM EDT [facility] Potassium 4.6 3.5 - 5.3 mmol/L 06/05/2023 10:49 PM EDT [facility] Chloride 111(H) 98 - 110 mmol/L 06/05/2023 10:49 PM EDT [facility] Carbon Dioxide 18(L) 20 - 32 mmol/L 06/05/2023 10:49 PM EDT [facility] Calcium 9.8 8.6 - 10.4 mg/dL 06/05/2023 10:49 PM EDT [facility] Phosphate 3.5 2.5 - 4.5 mg/dL 06/05/2023 10:49 PM EDT [facility] Albumin 4.0 3.6 - 5.1 g/dL 06/05/2023 10:49 PM EDT [facility] Blood Structure of peripheral vein / Unknown 06/05/2023 11:53 AM EDT 06/05/2023 7:56 PM EDT Narrative [facility] - 06/09/2023 5:04 AM EDT FASTING:NO us Anupama Bynum DO LAB BLOOD ORDERABLES Final Resul t [facility] [address] [facility] [address], [place] [address], [facility] [address] [place] [address] from Last 3 Months or Most Recently Relevant to Health Maintenance Insurance * Guarantor: Aneta Gan Account Type Relation to Patient Date of Phone Billing Address Personal/Family Self 1965 [phone] (Work) [address] [place] [address] [facility] * Guarantor: Judith Gana Account Type Relation to Patient Date of Phone Billing Address Transplant Self 1965 [phone] (Work) [address] [place] [address] [facility] Advance Directives Documents on File Type Date Recorded 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
--- OUTSIDE RECORDS SUMMARY | 2025-03-31 15:48 | XMS_ITS | Encounter Summary ---
Author Organization [facility] Address [address] [place] [address] Phone Care Team Providers Care Healthcare Marketer Name Role Phone Unavailable Primary Care Provider Unavailabl e Encounter Details Date Type Department Care Team (Late st Contact Info) Description 08/10/2022 Telephone [facility] [address] [place] [address] Roe [place]sey MD Social History [...] Iris Gee - 08/10/2022 10:19 AM EST [facility] insurance verification called, pt will need a [...] EDT) Calcium 9.1 8.4 - 10.2 mg/dL [place] 11/06/2022 4:20 PM EDT 11/06/2022 4:20 PM EDT Roe [place]sey MD LAB BLOOD ORDERABLES Final Res ult [place] * (ABNORMAL) Creatinine (11/06/2022 4:20 PM EDT) Creatinine Serum 2.59(H) 0.5 - 1.4 mg/dL [facility] eGFR (Calc) 19 [facility] Comment: NOTE: For -Citizen [place] individuals, multiply the result by 1.210. Chronic Kidney Disease: Estimated GFR < 60 mL/min/1.73m2 Severe Kidney Disease: Estimated GFR < 15 mL/min/1.73m2 11/06/2022 4:20 PM EDT 11/06/2022 4:20 PM EDT Roe [place]sey MD LAB BLOOD ORDERABLES Final Res ult Performing Organization Address City/[facility]/ZIP Co de Phone Number [place] * (ABNORMAL) BUN (11/06/2022 4:20 PM EDT) BUN 44(H) 9 - 16 mg/dL [place] 11/06/2022 4:20 PM EDT 11/06/2022 4:20 PM [...]
--- OUTSIDE RECORDS SUMMARY | 2025-03-31 15:48 | XMS_ITS | Clinical Summary ---
Author Organization [facility] Address [address] [place] [address] Care Team Providers Care Ampoule Inspector Name Role Phone Franklin Sanchez Primary [...] Influenza Vaccine 03/06/2025 [place] [address] [facility] Care Teams Ampoule Inspector Relationship Specialty Start Date End Date Franklin Sanchez PA [facility] [place] [address] PCP - General Adult Health - PA/APNP/CHIEF LEGAL OFFICER/MANAGER FINE DINING 07/20/21
--- OUTSIDE RECORDS SUMMARY | 2025-03-31 15:48 | XMS_ITS ---
Author Organization [facility] Address [address] [place] [address] Care Team Providers Care Table Assembler Metal Name Role Phone Franklin Sanchez Primary Care Provider [phone] Transplant Episode Kidney Candidate [facility] ([place], [place]) [facility] waitlisted on 02/18/2025 Marked as Inactive on 02/18/2025 Reason: Candidate Workup Incomplete Kidney CoordinatorZenobia Zepeda RN Email: N/A Scores Score Value Updated Exceptions/Reas ons CPRA 63 02/23/2025 EPTS (Calc) 28 03/31/2025 [place] Organ Diagnosis Organ Primary Contributory Kidney Systemic Lupus Erythematosus Mem branous Nephropathy Care Team Name Role Phone Fax Email Zenobia Zepeda RN Kidney Coordinator [phone] N/A Roe [place] Referring Physician [phone] N/A Events Pre-Transplant Referred: 10/23/2024 Evaluation began: 12/11/2024 Committee: 02/18/2025 Center waitlisted: 02/18/2025
--- OUTSIDE RECORDS SUMMARY | 2025-03-31 15:48 | XMS_ITS | Clinical Summary ---
Author Organization [facility] Address [address] [place] [address] Phone Care Team Providers Care Commercial Real Estate Broker Name Role Phone Unavailable Primary Care Provider [...] 03/02/2016 Active ergocalciferol (VITAMIN D-2) 1.25 MG (88859 UT) capsule Take 1 capsule by mouth [...] Cancer Screening: Sigmoidoscopy 2014 Influenza Vaccine (#1) 2025 Insurance [facility] Medicaid MD [facility] Medicaid MD
== END 2025-03-31 15:06 | disposition home or self-care (01) ==
LOC: HO.ACS 14:54
PROVIDERS: PCP Physician Assistant; Visit Provider Internal Medicine Medical Oncology
DX: Z79.01 Long term (current) use of anticoagulants (principal)

== ENCOUNTER → 2025-03-31 14:54 | Outpatient (BNVA) | payer OTHER, MEDICAID, SELFPAY | PROVIDERS: PCP Physician Assistant; Visit Provider Internal Medicine Medical Oncology | DX: I26.99 Other pulmonary embolism without acute cor pulmonale (principal); Z79.01 Long term (current) use of anticoagulants; Z51.81 Encounter for therapeutic drug level monitoring | CPT/HCPCS: 85610; 99211 ==

== ENCOUNTER 2025-04-08 15:11 | Outpatient (AMB) | payer OTHER, MEDICAID, SELFPAY ==
--- NOTE | 2025-04-08 15:28 | A.OFFVIS_ITS ---
Vital Signs 04/08/25 15:29 Height 5 ft Weight 137 lb 2.04 oz BMI 26.8 BP 118/74 Blood Pressure Location Rt brachial Position Sitting Pulse 77 Pulse Source Pulse Oximeter Pulse Oximetry (%) 98 Oxygen Delivery Method Room Air Intake Visit Reasons: SLE Intake Note: Patient last seen by Doctor Federico Stallworth on 04/22/24. Presents for SLE follow up and test results. Allergies rituximab (From Rituxan) Allergy (Severe, Verified 04/08/25 15:37) Anaphylaxis cephalexin (From Keflex) Allergy (Unknown, Verified 04/08/25 15:37) RED+ITCHY,RASH Cephalosporins (CEPHALOSPORINS) Allergy (Unknown, Verified 04/08/25 15:37) RED+ITCHY Sulfa (Sulfonamide Antibiotics) (SULFA(SULFONAMIDE ANTIBIOTICS)) Allergy (Unknown, Verified 04/08/25 15:37) RED+ITCHY mycophenolate mofetil (From CellCept) Adverse Reaction (Intermediate, Verified 04/08/25 15:37) rash cellcept Allergy (Severe, Uncoded 04/08/25 15:37) Hives retuxin Adverse Reaction (Severe, Uncoded 04/08/25 15:37) Abdominal Pain HPI Comments Details: Patient is a 59-year-old female with hyperlipidemia, hypothyroidism, hyperte nsion, generalized anxiety disorder, and 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 Stallworth - On prednisone 2.5mg daily - unable to do Benlysta due to high co-pay - self-discontinued CellCept due to rash - No evidence of active SLE - Recommended decreasing prednisone to 2.5mg every other day Today - On prednisone 2.5mg daily - Doing well - Denies rashes, photosensitivity, alopecia, oral/nasal ulcers, sicca symptoms, lymphadenopathy, chest pain/shortness of breath, inflammatory type joint pain, foamy urine, lower extremity edema, muscle weakness - On the transplant list in [place] Rheumatologic History: Per Dr. Andino in 2019: Patient was diagnosed with lupus in 2002 when she was admitted in the ICU with chest pain, leg swelling, fever,rash and shortness of breath. 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 She also had alopecia, joint pains, skin eruptions. She has questionable Raynaud, occasional oral ulcers. She recieved cytoxan in 2005, was tried on cyclosporin which was discontinued sec to epigastric pain.She was started on cellcept in 2008 sec to ongoing proteinuria. Inspite of increasing it to 3gms she continued to have ongoing proteinuria. She has recieved 2 doses of Rituximab 500mg , 2 weeks apart in 2010. Since February 2012 she was started on Benlysta for her skin symptoms with improvement. She had been getting it until she lost her insurance late last year. She feels the Benlysta really helped her with the rash. Benlysta was stopped . They she was out on Acthar gel but it was stopped because of insurance coverage. This was in 2017, she took it for a year but not a complete year. It never was consistent. ?She is currently taking plaquenil, enalapril, and one more (she will call to give us the name) and coumadin. She is using clobetasol for her rash and it is helping. ?Bone density: DIAGNOSIS: Normal bone density based on the lowest T-score value of?-0.9 in the femoral neck applying World Health Organization criteria.?Hands radiographs: Normal right and left hand studies without evidence of osteoarthritis or erosive arthritides. Current Rheumatology Medication(s): Prednisone 2.5mg daily PFSH Medical History Prediabetes SLE glomerulonephritis syndrome History of pulmonary embolism Vitamin D deficiency Hypertriglyceridemia Hypothyroidism Surgical History Hx of tubal ligation Family History Father Family history unknown Mother Hypertension Diabetes Deep vein thrombosis CVA (cerebral vascular accident) Brother CVA (cerebral vascular accident), Onset Age: 48 Brother CVA (cerebral vascular accident), Onset Age: 38 Social History Household Members: None Housing: House Alcohol intake: former Patient Tobacco Use Status: Former Tobacco user Tobacco use type: Cigarette e-Cigarette/Vaping Use: Never Used Second Hand Smoke Exposure: Yes service: No Current occupational status: employed 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 Cognitive needs: No Hearing needs: No Vision needs: Yes (Glasses) Review of Systems Const Details: Review of Systems Constitutional: Denies fever, chills, weight loss ENT: Denies vision changes, eye pain or eye redness, dental caries, dry mouth GI: Denies nausea, vomiting, diarrhea, abdominal pain, change in BM Pulm: Denies SOB, STILL, hemoptysis, wheezing Cards: Denies chest pain, palpitations Skin: Denies Raynaud's, rash, nail changes, photosensitivity, VERIFY REP: Denies headaches, weakness, paresthesias, recurrent falls MSK: as per HPI All other systems reviewed and are unremarkable except noted above Physical Exam Exam Exam: Vital signs reviewed Physical Examination CONSTITUITIONAL Patient alert and cooperative. Well appearing and in no apparent painful distress MSK Hands * Right Hand: Able to make a fist. No swelling or tenderness to palpation of the MCPs, PIPs or DIPs. * Left Hand: Able to make a fist. No swelling or tenderness to palpation of the MCPs, PIPs or DIPs. Wrists * Right Wrist: Full ROM to flexion and extension. No swelling or TTP * Left Wrist: Full ROM to flexion and extension. No swelling or TTP Elbows * Right Elbow: Full ROM. No swelling or TTP. No TTP of the medial epicondyle. No TTP of the lateral epicondyle * Left Elbow: Full ROM. No swelling or TTP. No TTP of the medial epicondyle. No TTP of the lateral epicondyle Shoulders * Right shoulder: Full ROM. No swelling noted. No TTP of the AC joint. No TTP of the subacromial bursa. No TTP of the posterior shoulder * Left shoulder: Full ROM. No swelling noted. No TTP of the AC joint. No TTP of the subacromial bursa. No TTP of the posterior shoulder Knees * Right knee: Full ROM. No swelling noted. No TTP of the knee joint line. No TTP of pes anserine bursa * Left knee: Full ROM. No swelling noted. No TTP of the knee joint line. No TTP of pes anserine bursa. Ankles * Right ankle: Good ankle dorsiflexion and plantar flexion. No swelling. No TTP of the ankle joint * Left ankle: Good ankle dorsiflexion and plantar flexion. No swelling. No TTP of the ankle joint Feet * Right foot: Negative squeeze test * Left foot: Negative squeeze test Tender points? * No tenderness to palpation of the bilateral trapezius, supraspinatus, anterior costochondral junctions, bilateral suboccipital muscle insertions SKIN No rashes Vital Signs: Last Vital Signs Pulse 77 04/08/25 15:29 BP 118/74 04/08/25 15:29 Pulse Ox 98 04/08/25 15:29 Oxygen Delivery Method Room Air 04/08/25 15:29 BMI result Body Mass Index 26.8 Results Reviewed Results Reviewed: Laboratory Tests 09/13/24 11/14/24 02/25/25 09:45 08:20 14:31 WBC 7.6 RBC 3.66 L Hgb 10.9 L Hct 34.0 L Plt Count 272 ESR 77 H Sodium 139 Potassium 4.9 D Chloride 111 H Anion Gap 11 L BUN 53 H Creatinine 2.97 H AST 33 H ALT 28 C-Reactive Protein 1.04 H 25-OH Vitamin D Total 25.7 L Rheumatology labs 04/02/24 09/13/24 16:07 09:45 Double Strand DNA Ab 3 2 Complement C3 60 L 121 Complement C4 23 Assessment & Plan Assessment & Plan (1) Lupus (systemic lupus erythematosus): Comment: onset [id number] Treated with Cytoxan and prednisone Coumadin throughout Cyclosporin 2005 DC due to epigastric pain CellCept 2008 up titrated to 3 g daily, developed worsening proteinuria Rituximab 2 doses, 2 weeks apart 2011 Believes that she took hydroxychloroquine and discontinued it due to tinnitus ?! Benlysta 02/2012 was helpful especially for skin lesions. Discontinued due to loss of insurance Acthar gel 2016 took it for about a year inconsistently Repeat kidney biopsy 04/2022 showed class 3 and 5 nephritis. Received 1 dose of rituximab 08/2022 with some improvement Benlysta 12/2023. DC 02/2024. Could not afford co-pay CellCept tried again 02/2024. DC'd after 1 dose due to rash Code(s): M32.9 - Systemic lupus erythematosus, unspecified Category: Medical Qualifiers: Systemic lupus erythematosus type: other Systemic lupus erythematosus organ involvement: glomerular disease Qualified Code(s): M32.14 - Glomerular disease in systemic lupus erythematosus Plan: #SLE Patient is a 59-year-old female with lupus complicated by glomerular nephritis and subsequent CKD here today for follow up. Currently her lupus is in remission only on prednisone 2.5 mg daily. 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) use of systemic steroids: Code(s): Z79.52 - snf (current) use of systemic steroids Plan: #Long-term Use of Steroids Discussed with patient the risks and benefits of steroid for managing the rheumatic condition Benefits include: - Reduced pain, improved mobility, increased participation in activities, and decreased progression of disease Risks include: - GI upset, potential ultrasound worsening or formation (especially in patients > 65 years old), elevated blood pressure/worsening hypertension, elevated blood sugar/worsening diabetes control, worsening of bone density, elevated lipids/worsening triglycerides, cataract formation, weight gain Recommended using proton pump inhibitors (PPIs) for the duration of steroid use to reduce the risk of gastric ulcers and vitamin-D daily to reduce the risk of osteoporosis Labs checked: A1c, T spot, hepatitis-B and C serologies Pneumocystis jiroveci prophylaxis: Patient with risk factors including steroids greater than 50 mg for more than 30 days, age greater than 60 years, and lung involvement from underlying rheumatic disease requires prophylaxis and will be given so Plan This is my first visit with this patient. I spent 30 minutes reviewing the record and labs, taking a history, examining the patient, discussing the treatment plan, ordering diagnostic work up and documenting in the medical record Coding Level of Care Code Est Pt Level 4 (21434) Complex EM visit Add On G2211 Diagnoses Other systemic lupus erythematosus with glomerular disease M32.14 Systemic lupus erythematosus type: other Systemic lupus erythematosus organ involvement: glomerular disease snf (current) use of systemic steroids Z79.52
[2025-04-08 15:29] VITALS: BP 118/74; PULSE 77; O2SAT 98; BMI 26.8
--- OUTSIDE RECORDS SUMMARY | 2025-04-08 17:20 | XMS_ITS | Encounter Summary ---
Author Organization [facility] Address [address] [place] [address] Phone Care Team Providers Care Sample Distributor Name Role Phone Unavailable Primary Care Provider Unavailabl e Encounter Details Date Type Department Care Team (Late st Contact Info) Description 08/10/2022 Telephone [facility] [address] [place] [address] Roe Morrissey MD Social History [...] Iris Gee - 08/10/2022 10:19 AM EST [facility] insurance verification called, pt will need a PA for her truxima infusion that is scheduled for tomorrow. This will need to go through [facility]. documented in this encounter Plan of [...] EDT) Calcium 9.1 8.4 - 10.2 mg/dL TENAFLY 11/06/2022 4:20 PM EDT 11/06/2022 4:20 PM EDT Roe Morrissey MD LAB BLOOD ORDERABLES Final Res ult [place] * (ABNORMAL) Creatinine (11/06/2022 4:20 PM EDT) Creatinine Serum 2.59(H) 0.5 - 1.4 mg/dL OXANA eGFR (Calc) 19 ADRIAN Comment: NOTE: For -[place] individuals, multiply the result by 1.210. Chronic Kidney Disease: Estimated GFR < 60 mL/min/1.73m2 Severe Kidney Disease: Estimated GFR < 15 mL/min/1.73m2 11/06/2022 4:20 PM EDT 11/06/2022 4:20 PM EDT Roe Morrissey MD LAB BLOOD ORDERABLES Final Res ult Performing Organization Address City/[facility]/ZIP Co de Phone Number [place] * (ABNORMAL) BUN (11/06/2022 4:20 PM EDT) BUN 44(H) 9 - 16 mg/dL TENAFLY 11/06/2022 4:20 PM EDT 11/06/2022 4:20 PM [...]
--- OUTSIDE RECORDS SUMMARY | 2025-04-08 17:20 | XMS_ITS | Clinical Summary ---
Author Organization [facility] Address [address] [place] [address] Care Team Providers Care Air Chipper Name Role Phone Franklin Sanchez Primary Care Provider [phone] Allergies Active Allergy Reactions Criticality Noted Date [...] propionate (FLONASE) 50 mcg/actuation nasal spray SMARTSI [place](s) Both Nares Twice Daily 5 Active sodium bicarbonate 650 mg tablet SMARTSI Tablet(s) By Mouth Twice Daily 5 Active predniSONE (DELTASONE) 2.5 mg tablet 5 Active Active Problems No known active problems Encounters Date Type Department Care Team Description 03/19/2025 Documentation [facility] Department [address] [place] [address] Delores Sepulveda LICSW 02/18/2025 Orders Only [facility] Department [address] [place] [address] Zenobia Zepeda RN Pre-transplant evaluation for end stage renal disease (Primary Dx); Chronic kidney disease, stage IV (severe) (HCC) 02/18/2025 Documentation [facility] Department [address] [place] [address] Seema Arredondo RN ABO Dual Validation 02/18/2025 Orders Only [facility] Department [address] [place] [address] Zenobia Zepeda RN 02/12/2025 Telephone [facility] Transplant Department [address] [place] [address] Zenobia Zepeda fur clipper - Kidney Txp 01/12/2025 Orders Only External Imaging [address] [place] [address] Radiology, External 01/12/2025 Orders Only External Imaging [address] [place] [address] Radiology, External from Last 3 Months Family [...] Info) Description 12/08/2025 8:20 AM EDT Follow-Up [facility]plant [address] [place] [address] Franklin Flowers MD [address] [place] [address] 12/08/2025 9:00 AM EDT Social Work [facility] [address] [place] [address] Delores Sepulveda LICSW [address] [place] [address] Health Maintenance Due Date Last Done Comments [...] 03/24/2008 Basic Metabolic Panel 09/05/2023 06/05/2023, 023 25 Hydroxy / Vitamin D 06/05/2024 06/05/2023 PTH 06/05/2024 06/05/2023 Alcohol/Substance Use Screening 08/06/2024 Depression Screening and Follow-Up 08/06/2024 Social Drivers of Health Nayla ual Screening 08/06/2024 Urine Microalbumin 08/07/2024 08/07/2023, 1 , 06/05/2023 COVID-19 Vaccine (4 - 2024-2 6 season) 2025 10/28/2021, 10/14/2020, 09/16/2020 Influenza Vaccine (#1) 2025 , 07/12/2022, 06/11/2019, Additional history exists Hemoglobin 12/11/2025 12/11/2024, 06/05/2023 Phosphorus 12/11/2025 12/11/2024, 06/05/2023 RSV Vaccine (60+ years old a nd patients) (1 - 1-dose 75+ series) 2040 CKD: Referral to Nephrology Completed 12/11/2024 HIV Screening Completed 12/11/2024 Hepatitis C Screening Completed 12/11/2024 Procedures * Due to [place] state law, this organization might not be [...] Health Maintenance Results * Due to [place] state law, this organization might not be sharing negative HIV tests. * TYPE AND SCREEN - TRANSPLANT MANUAL ABSTRACTION (02/12/2025 4:03 PM EDT) ABO AB [facility] RH Positive [facility] 02/12/2025 4:03 PM EDT us Unknown Provider MD LAB HISTORICAL RESULTS Final Result Performing Organization Address City/State/[facility] Co de Phone Number [facility] [address] [place] [address] * [employer] (01/29/2025 11:36 AM EDT) Narrative 01/29/2025 11:36 AM EDT This order has been auto-finalized and does not contain a result. us External Radiology CV ECHO PROCEDURES Final Resu lt * (ABNORMAL) CBC Auto Differential (12/11/2024 12:08 PM EDT) WBC 6.6 3.8 - 10.8 10*3/uL 12/11/2024 12:32 PM EDT [facility] [employer] [facility] RBC 3.52(L) 3.80 - 5.10 10*6/uL 12/11/2024 12:32 PM EDT [facility] Hemoglobin 10.4(L) 11.7 - 15.5 g/dL 12/11/2024 12:32 PM EDT [facility] Hematocrit 33.1(L) 35.0 - 45.0 % 12/11/2024 12:32 PM EDT [facility] MCV 94.0 80.0 - 100.0 fL 12/11/2024 12:32 PM EDT [facility] MCH 29.5 27.0 - 33.0 pg 12/11/2024 12:32 PM EDT [facility] MCHC 31.4(L) 32.0 - 36.0 g/dL 12/11/2024 12:32 PM EDT [facility] RDW 13.3 11.0 - 15.0 % 12/11/2024 12:32 PM EDT [facility] Platelets 289 140 - 400 10*3/uL 12/11/2024 12:32 PM EDT [facility] MPV 10.4 7.5 - 12.5 fL 12/11/2024 12:32 PM EDT [facility] Neutrophil % 58.9 % 12/11/2024 12:32 PM EDT [facility] Immature Grans % 0.5 0.0 - 0.9 % 12/11/2024 12:32 PM EDT [facility] Lymphocyte % 30.5 % 12/11/2024 12:32 PM EDT [facility] Monocyte % 5.8 % 12/11/2024 12:32 PM EDT [facility] Eosinophil % 3.8 % 12/11/2024 12:32 PM EDT [facility] Basophil % 0.5 % 12/11/2024 12:32 PM EDT [facility] Neutrophil # 3.86 1.50 - 7.80 10*3/uL 12/11/2024 12:32 PM EDT [facility] [employer] [facility] Immature Grans # 0.03 <=0.03 10*3/uL 12/11/2024 12:32 PM EDT [facility] [employer] [facility] Lymphocyte # 2.00 0.85 - 3.90 10*3/uL 12/11/2024 12:32 PM EDT [facility] [employer] [facility] Monocyte # 0.40 0.20 - 0.95 10*3/uL 12/11/2024 12:32 PM EDT [facility] [employer] [facility] Eosinophil # 0.30 0.02 - 0.50 10*3/uL 12/11/2024 12:32 PM EDT [facility] [employer] [facility] Basophil # <0.03 0.00 - 0.20 10*3/uL 12/11/2024 12:32 PM EDT [facility] [employer] [facility] nRBC % 0.0 /100 WBCs 12/11/2024 12:32 PM EDT [facility] [employer] [facility] nRBC # <0.01 <0.01 10*3/uL 12/11/2024 12:32 PM EDT [facility] [employer] [facility] Blood Structure of peripheral vein / Unknown Venipuncture / Unknown 12/11/2024 12:08 PM EDT 12/11/2024 12:24 PM EDT us Franklin Flowers MD LAB BLOOD ORDERABLES [place] Result [facility] [employer] [facility] [address] [place] [address], * Hepatitis C Antibody w/Reflex to PCR (12/11/2024 12:08 PM EDT) Hepatitis C Antibody NON-REACT MARSHALL NON-REACT MARSHALL 12/12/2024 6:[address] [facility] Comment: HCV antibody was non-reactive. There is no laboratory evidence of HCV infection. In most cases, no further action is required. However, if recent HCV exposure is suspected, a test for HCV RNA (test code 79805) is suggested. For additional information please refer to http://SPORTLOGiQ.TRData/faq/BPT55d8 (This link is being provided for informational/ educational purposes only.) Blood Structure of peripheral vein / Unknown Venipuncture / Unknown 12/11/2024 12:08 PM EDT 12/11/2024 12:23 PM EDT Narrative [facility] - 12/12/2024 6:33 AM EDT [facility] Received Date: Franklin Flowers MD LAB BLOOD ORDERABLES [place] l Result Performing Organization Address City/[facility]/ZIP Co de Phone Number [facility] [address] [facility] [address], [place] [address], [place] [phone] [facility] [address] [facility] [address], [place] [address], [place] [phone] * Phosphorus (12/11/2024 12:08 PM EDT) Phosphorus 3.4 2.5 - 4.5 mg/dL 12/11/2024 12:59 PM EDT [facility] Blood Structure of peripheral vein / Unknown Venipuncture / Unknown 12/11/2024 12:08 PM EDT 12/11/2024 12:26 PM EDT Franklin Flowers MD LAB BLOOD ORDERABLES [place] Result [facility] [address] [place] [address], * (ABNORMAL) Microalbumin, Random Urine with Creatinine (08/07/2023 9:01 AM EST) Creatinine, Random Urine 92 20 - 275 mg/dL 08/08/2023 6:45 PM EST [facility] Microalbumin 150.8 mg/dL 08/08/2023 6:45 PM EST [facility] Comment: Verified by repeat analysis. Reference Range Not established Microalbumin/Crea tinine Ratio, Random Urine 1,639(H) <30 mcg/mg creat 08/08/2023 6:45 PM EST [facility] Comment: The ADA defines abnormalities in albumin [...] ORDERABLES Final Resul t [facility] [address] [facility] [address] Floor, [place] [address], [place] [phone] [facility] [facility] [address] [place] [address] * (ABNORMAL) Vitamin D, 25-Hydroxy, Total, Immunoassay (06/05/2023 11:53 AM EDT) Calcidiol+ercalc idiol 22(L) 30 - 100 ng/mL 06/05/2023 9:28 PM EDT [facility] Comment: Vitamin D Status 25-OH Vitamin D: Deficiency: <20 ng/mL Insufficiency: 20 - 29 ng/mL Optimal: > or = 30 ng/mL For 25-OH Vitamin D testing on patients on D2-supplementation and patients for whom quantitation of D2 and D3 fractions is required, the QuestAssureD(TM) 25-OH VIT D, (D2,D3), LC/MS/MS is recommended: order code 51080 (patients >2yrs). See Note 1 Note 1 For additional information, please refer to http://education.TweetPhoto.Nervana Systems/faq/YWA960 (This link is being provided for informational/ educational purposes only.) Blood Structure of peripheral vein / Unknown 06/05/2023 11:53 AM EDT 06/05/2023 7:56 PM EDT Narrative [facility] - 06/09/2023 5:04 AM EDT FASTING:NO [facility] LAB BLOOD ORDERABLES Final Resul t Performing Organization Address City/[facility]/ZIP Co de Phone Number [facility] [address], [place] [address], [place] [phone] [facility] [address] [address] * (ABNORMAL) PTH, Intact (without Calcium) (06/05/2023 11:53 AM EDT) Parathyroid Hormone, Intact 205(H) 16 - 77 pg/mL 06/06/2023 1:16 AM EDT [facility] Comment: Interpretive Guide Intact PTH Calcium ------- Normal Parathyroid Normal Normal Hypoparathyroidism Low or Low Normal Low Hyperparathyroidism Primary Normal or High High Secondary High Normal or Low Tertiary High High Non-Parathyroid Hypercalcemia Low or Low Normal High Blood Structure of peripheral vein / Unknown 06/05/2023 11:53 AM EDT 06/05/2023 11:02 PM EDT Narrative [facility] - 06/09/2023 5:04 AM EDT FASTING:NO [facility] LAB BLOOD ORDERABLES Final Resul t Performing Organization Address City/[facility]/ZIP Co de Phone Number [facility] [address], [place] [address], [place] [phone] [facility] [address] [address] * (ABNORMAL) Renal Function Panel (06/05/2023 11:53 AM EDT) Glucose 89 65 - 139 mg/dL 06/05/2023 10:49 PM EDT [facility] Comment: Non-fasting reference interval BUN 39(H) 7 - 25 mg/dL 06/05/2023 10:49 PM EDT [facility] Creatinine 2.61(H) 0.50 - 1.03 mg/dL 06/05/2023 10:49 PM EDT [facility] eGFR 21(L) > OR = 60 mL/min/1. 73m2 06/05/2023 10:49 PM EDT [facility] Bun/Creatinine Ratio 15 6 - 22 (calc) 06/05/2023 10:49 PM EDT [facility] Sodium 137 135 - 146 mmol/L 06/05/2023 10:49 PM EDT [facility] Potassium 4.6 3.5 - 5.3 mmol/L 06/05/2023 10:49 PM EDT [facility] Chloride 111(H) 98 - 110 mmol/L 06/05/2023 10:49 PM EDT [facility] Carbon Dioxide 18(L) 20 - 32 mmol/L 06/05/2023 10:49 PM EDT [facility] Calcium 9.8 8.6 - 10.4 mg/dL 06/05/2023 10:49 PM EDT [facility] Phosphate 3.5 2.5 - 4.5 mg/dL 06/05/2023 10:49 PM EDT [facility] Albumin 4.0 3.6 - 5.1 g/dL 06/05/2023 10:49 PM EDT [facility] Blood Structure of peripheral vein / Unknown 06/05/2023 11:53 AM EDT 06/05/2023 7:56 PM EDT Narrative [facility] - 06/09/2023 5:04 AM EDT FASTING:NO us Anupama Bynum DO LAB BLOOD ORDERABLES Final Resul t [facility] [address] [facility] [address], [place] [address], [facility] [address] [place] [address] from Last 3 Months or Most Recently Relevant to Health Maintenance Insurance * Guarantor: Aneta Gan Account Type Relation to Patient Date of Phone Billing Address Personal/Family Self 1965 [phone] (Work) [address] [place] [address] [facility] * Guarantor: Judith Gana Account Type Relation to Patient Date of Phone Billing Address Transplant Self 1965 [phone] (Work) [address] [place] [address] [facility] Advance Directives Documents on File Type Date Recorded Patient Patient Services Coordinator Expl [facility] Proxy 12/25/2024 8:48 AM 12/11 Care Teams Air Chipper Relationship Specialty Start Date End Date Franklin Sanchez PA [address] [place] [phone] PCP - General 06/05/23
--- OUTSIDE RECORDS SUMMARY | 2025-04-08 17:20 | XMS_ITS | Clinical Summary ---
Author Organization [facility] Address [address] [place] [address] Care Team Providers Care Media Intern Name Role Phone Franklin Sanchez Primary Care [...] Influenza Vaccine 03/06/2025 [place] [address] [facility] Care Teams Media Intern Relationship Specialty Start Date End Date Franklin Sanchez PA [facility] [place] [address] PCP - General Adult Health - PA/APNP/SPORTS THERAPIST/MECHANICAL TECHNICAL SERVICE SPECIALIST 07/20/21
--- OUTSIDE RECORDS SUMMARY | 2025-04-08 17:20 | XMS_ITS | Clinical Summary ---
Author Organization [facility] Address [address] [place] [address] Phone Care Team Providers Care Automotive Worker Name Role Phone Unavailable Primary Care [...] 03/02/2016 Active ergocalciferol (VITAMIN D-2) 1.25 MG (23756 UT) capsule Take 1 capsule by mouth [...] Vaccine (#1) 2025 Insurance [facility] Medicaid [place] [facility] [place]
--- OUTSIDE RECORDS SUMMARY | 2025-04-08 17:20 | XMS_ITS ---
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
== END 2025-04-08 16:19 | disposition home or self-care (01) ==
LOC: HO.RHES 15:12
PROVIDERS: PCP Physician Assistant; Visit Provider Student in an Organized Health Care Education/Training Program
DX: M32.14 Glomerular disease in systemic lupus erythematosus (principal); Z79.52 Long term (current) use of systemic steroids
CPT/HCPCS: 99214; G2211

== ENCOUNTER 2025-04-28 15:11 | Outpatient (AMB) | payer OTHER, MEDICAID, SELFPAY ==
[2025-04-28 15:17] LABS: Prothrombin Time Whole Bld POC 47.2 sec (11.1-13.5); ~PT, ~INR - Anti Coag Clinic 3.9 (0.9-1.1)
--- NOTE | 2025-04-28 15:19 | MHC.OFFVISCO ---
Intake Intake Visit Reasons: Anticoagulation Allergies rituximab (From Rituxan) Allergy (Severe, Verified 04/28/25 15:12) Anaphylaxis cephalexin (From Keflex) Allergy (Unknown, Verified 04/28/25 15:12) RED+ITCHY,RASH Cephalosporins (CEPHALOSPORINS) Allergy (Unknown, Verified 04/28/25 15:12) RED+ITCHY Sulfa (Sulfonamide Antibiotics) (SULFA(SULFONAMIDE ANTIBIOTICS)) Allergy (Unknown, Verified 04/28/25 15:12) RED+ITCHY mycophenolate mofetil (From CellCept) Adverse Reaction (Intermediate, Verified 04/28/25 15:12) rash cellcept Allergy (Severe, Uncoded 04/28/25 15:12) Hives retuxin Adverse Reaction (Severe, Uncoded 04/28/25 15:12) Abdominal Pain Medication List - Last Reconciled 04/28/25 by Joann Braden RN atorvastatin 20 mg PO BEDTIME 30 days calcitriol 0.25 mcg PO DAILY clobetasol 0.05% 1 appl topical DAILY fluocinonide 0.05% appl topical gabapentin 200 mg PO DAILY PRN levothyroxine 100 mcg PO DAILY lisinopril 2.5 mg PO DAILY loratadine 10 mg PO DAILY PRN magnesium oxide 250 mg PO BID prednisone 2.5 mg PO DAILY sodium bicarbonate 650 mg PO BID warfarin 5 mg See Protocol PO DAILY Nursing Note INR: 3.9 out of therapeutic range of 2-3 Medications and supplements reviewed No changes in health, diet, medications, or supplements, Denies any signs and symptoms of bleeding or bruising or clotting. Bleeding, bruising, clotting discussed Nutritional guidance given to have a serving of greens today Dose: pt took today's dose so will hold tomorrow's dose of 2.5mg then 2.5mg X 6 days and 5mg X 1 day () F/U INR: 2 weeks Patient verbalizes understanding of instructions given Anti-Coag Initial Assessment Social Hx Patient Tobacco Use Status: Former Tobacco user Tobacco use type: Cigarette alcohol intake: former Alcohol intake frequency: does not drink Coding Level of Care Code Est Patient Level 1 Diagnoses Current use of anticoagulant therapy Z79.01 Results AMB INR Fingerstick AMB INR Fingerstick 3.9 Last Edit by Joann Braden RN on 04/28/25 15:19 interface delay Assessment & Plan Assessment & Plan (1) Current use of anticoagulant therapy: Code(s): Z79.01 - termination clerk (current) use of anticoagulants Category: Medical
--- OUTSIDE RECORDS SUMMARY | 2025-04-28 18:09 | XMS_ITS ---
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
--- OUTSIDE RECORDS SUMMARY | 2025-04-28 18:09 | XMS_ITS | Encounter Summary ---
Author Organization [facility] Address [address] [place] [address] Phone Care Team Providers Care Fleet Operations Manager Name Role Phone Unavailable Primary Care Provider Unavailabl e Encounter Details Date Type Department Care Team (Late st Contact Info) Description 08/10/2022 Telephone [facility] [address] [place] [address] Roe Morrissey MD Social History [...] Iris Gee - 08/10/2022 10:19 AM EST [facility] insurance verification called, pt will need a PA for her truxima infusion that is scheduled for tomorrow. This will need to go through [facility]. documented in this encounter Plan of [...] EDT) Calcium 9.1 8.4 - 10.2 mg/dL [facility] 11/06/2022 4:20 PM EDT 11/06/2022 4:20 PM EDT Roe Morrissey MD LAB BLOOD ORDERABLES Final Res ult [place] * (ABNORMAL) Creatinine (11/06/2022 4:20 PM EDT) Creatinine Serum 2.59(H) 0.5 - 1.4 mg/dL [facility] eGFR (Calc) 19 [facility] Comment: NOTE: For -[place] individuals, multiply the result by 1.210. Chronic Kidney Disease: Estimated GFR < 60 mL/min/1.73m2 Severe Kidney Disease: Estimated GFR < 15 mL/min/1.73m2 11/06/2022 4:20 PM EDT 11/06/2022 4:20 PM EDT Roe Morrissey MD LAB BLOOD ORDERABLES Final Res ult Performing Organization Address City/[facility]/ZIP Co de Phone Number [place] * (ABNORMAL) BUN (11/06/2022 4:20 PM EDT) BUN 44(H) 9 - 16 mg/dL [facility] 11/06/2022 4:20 PM EDT 11/06/2022 4:20 PM EDT Reo Morrissey MD LAB BLOOD ORDERABLES Final Res [...]
--- OUTSIDE RECORDS SUMMARY | 2025-04-28 18:09 | XMS_ITS | Clinical Summary ---
Author Organization [facility] Address [address] [place] [address] Care Team Providers Care Physician Office Specialist Name Role Phone Franklin Sanchez Primary Care Provider [phone] Allergies Active Allergy Reactions Criticality Noted Date [...] propionate (FLONASE) 50 mcg/actuation nasal spray SMARTSI [place](s) Both Nares Twice Daily 5 Active sodium bicarbonate 650 mg tablet SMARTSI Tablet(s) By Mouth Twice Daily 5 Active predniSONE (DELTASONE) 2.5 mg tablet 5 Active Active Problems No known active problems Encounters Date Type Department Care Team Description 03/19/2025 Documentation [facility] Transplant Department [address] [place] [address] Delores Sepulveda LICSW 02/18/2025 Orders Only [facility] Transplant Department [address] [place] [address] Zenobia Zepeda RN Pre-transplant evaluation for end stage renal disease (Primary Dx); Chronic kidney disease, stage IV (severe) (HCC) 02/18/2025 Documentation [facility] Transplant Department [address] [place] [address] Seema Arredondo RN ABO Dual Validation 02/18/2025 Orders Only [facility] Transplant Department [address] [place] [address] Zenobia Zepeda RN 02/12/2025 Telephone [facility] Transplant Department [address] [place] [address] Zenobia Zepeda RN Referral - Kidney Txp from Last 3 Months Family History Medical [...] Description 12/08/2025 8:20 AM EDT Follow-Up [facility] Renal Transplant [address] [place] [address] Franklin Flowers MD [address] [place] [address] 12/08/2025 9:00 AM EDT Social Work [facility] Renal Transplant [address] [place] [address] Delores Sepulveda LICSW [address] [place] [address] Health Maintenance Due Date Last Done Comments [...] Screening Completed 12/11/2024 Procedures * Due to [place] state law, this organization might not be [...] to Health Maintenance Results * Due to [place] state law, this organization might not be sharing negative HIV tests. * TYPE AND SCREEN - TRANSPLANT MANUAL ABSTRACTION (02/12/2025 4:03 PM EDT) ABO AB [facility] RH Positive [facility] 02/12/2025 4:03 PM EDT us Unknown Provider MD LAB HISTORICAL RESULTS Final Result Performing Organization Address City/State/[facility] Co de Phone Number [facility] [address] [place] [address] * Echo [employer] (01/29/2025 11:36 AM EDT) Narrative 01/29/2025 11:36 AM EDT This order has been auto-finalized and does not contain a result. us External Radiology CV ECHO PROCEDURES Final Resu lt * (ABNORMAL) CBC Auto Differential (12/11/2024 12:08 PM EDT) WBC 6.6 3.8 - 10.8 10*3/uL 12/11/2024 12:32 PM EDT [facility] RBC 3.52(L) 3.80 - 5.10 10*6/uL 12/11/2024 12:32 PM EDT [facility] Hemoglobin 10.4(L) 11.7 - 15.5 g/dL 12/11/2024 12:32 PM EDT [facility] Hematocrit 33.1(L) 35.0 - 45.0 % 12/11/2024 12:32 PM EDT [facility] MCV 94.0 80.0 - 100.0 fL 12/11/2024 12:32 PM EDT [facility] MCH 29.5 27.0 - 33.0 pg 12/11/2024 12:32 PM EDT [facility] MCHC 31.4(L) 32.0 - 36.0 g/dL 12/11/2024 12:32 PM EDT [facility] RDW 13.3 11.0 - 15.0 % 12/11/2024 12:32 PM EDT [facility] Platelets 289 140 - 400 10*3/uL 12/11/2024 12:32 PM EDT [facility] MPV 10.4 7.5 - 12.5 fL 12/11/2024 12:32 PM EDT [facility] Neutrophil % 58.9 % 12/11/2024 12:32 PM EDT [facility] Immature Grans % 0.5 0.0 - 0.9 % 12/11/2024 12:32 PM EDT [facility] Lymphocyte % 30.5 % 12/11/2024 12:32 PM EDT [facility] Monocyte % 5.8 % 12/11/2024 12:32 PM EDT [facility] Eosinophil % 3.8 % 12/11/2024 12:32 PM EDT [facility] Basophil % 0.5 % 12/11/2024 12:32 PM EDT [facility] Neutrophil # 3.86 1.50 - 7.80 10*3/uL 12/11/2024 12:32 PM EDT [facility] Immature Grans # 0.03 <=0.03 10*3/uL 12/11/2024 12:32 PM EDT [facility] Lymphocyte # 2.00 0.85 - 3.90 10*3/uL 12/11/2024 12:32 PM EDT [facility] Monocyte # 0.40 0.20 - 0.95 10*3/uL 12/11/2024 12:32 PM EDT [facility] Eosinophil # 0.30 0.02 - 0.50 10*3/uL 12/11/2024 12:32 PM EDT [facility] Basophil # <0.03 0.00 - 0.20 10*3/uL 12/11/2024 12:32 PM EDT [facility] nRBC % 0.0 /100 WBCs 12/11/2024 12:32 PM EDT [facility] nRBC # <0.01 <0.01 10*3/uL 12/11/2024 12:32 PM EDT [facility] Blood Structure of peripheral vein / Unknown Venipuncture / Unknown 12/11/2024 12:08 PM EDT 12/11/2024 12:24 PM EDT Franklin Flowers MD LAB BLOOD ORDERABLES [place] Result [facility] [address] [place] [address], * Hepatitis C Antibody w/Reflex to PCR (12/11/2024 12:08 PM EDT) Hepatitis C Antibody NON-REACT MARSHALL NON-REACT MARSHALL 12/12/2024 6:33 AM EDT [facility] Comment: HCV antibody was non-reactive. There is no laboratory evidence of HCV infection. In most cases, no further action is required. However, if recent HCV exposure is suspected, a test for HCV RNA (test code 60688) is suggested. For additional information please refer to http://education.[employer]/faq/DPN98l2 (This link is being provided for informational/ educational purposes only.) Blood Structure of peripheral vein / Unknown Venipuncture / Unknown 12/11/2024 12:08 PM EDT 12/11/2024 12:23 PM EDT Narrative [facility] - 12/12/2024 6:33 AM EDT [facility] Received Date: Franklin Flowers MD LAB BLOOD ORDERABLES [place] Result [facility] [address] [facility] [address]rd Floor, [place] [address], [facility] [address], [place] [address], * Phosphorus (12/11/2024 12:08 PM EDT) Pathologist [facility] Phosphorus 3.4 2.5 - 4.5 mg/dL 12/11/2024 12:59 PM EDT [facility] Blood Structure of peripheral vein / Unknown Venipuncture / Unknown 12/11/2024 12:08 PM EDT 12/11/2024 12:26 PM EDT Franklin Flowers MD LAB BLOOD ORDERABLES [place] Result [facility] [address] [place] [address], * (ABNORMAL) Microalbumin, Random Urine with Creatinine (08/07/2023 9:01 AM EST) Creatinine, Random Urine 92 20 - 275 mg/dL 08/08/2023 6:45 PM EST [facility] Microalbumin 150.8 mg/dL 08/08/2023 6:45 PM EST [facility] Comment: Verified by repeat analysis. Reference Range Not established Microalbumin/Crea tinine Ratio, Random Urine 1,639(H) <30 mcg/mg creat 08/08/2023 6:45 PM EST [employer] [employer] Comment: The ADA defines abnormalities in albumin [...] DO LAB URINE ORDERABLES Final Resul t [employer] [address] [facility] [address], [place] [address], [employer] [facility] [address] [place] [address] * (ABNORMAL) Vitamin D, 25-Hydroxy, Total, Immunoassay (06/05/2023 11:53 AM EDT) Calcidiol+ercalc idiol 22(L) 30 - 100 ng/mL 06/05/2023 9:28 PM EDT [employer] Comment: Vitamin D Status 25-OH Vitamin D: Deficiency: <20 ng/mL Insufficiency: 20 - 29 ng/mL Optimal: > or = 30 ng/mL For 25-OH Vitamin D testing on patients on D2-supplementation and patients for whom quantitation of D2 and D3 fractions is required, the QuestAssureD(TM) 25-OH VIT D, (D2,D3), LC/MS/MS is recommended: order code 92976 (patients >2yrs). See Note 1 Note 1 For additional information, please refer to http://education.[employer]/faq/IWM876 (This link is being provided for informational/ educational purposes only.) Blood Structure of peripheral vein / Unknown 06/05/2023 11:53 AM EDT 06/05/2023 7:56 PM EDT Narrative [facility] - 06/09/2023 5:04 AM EDT FASTING:NO [employer] DO LAB BLOOD ORDERABLES Final Resul t Performing Organization Address City/[facility]/ZIP Co de Phone Number [facility] [address], [place] [address], [place] [phone] [facility] [address] [address] * (ABNORMAL) PTH, Intact (without Calcium) (06/05/2023 11:53 AM EDT) Parathyroid Hormone, Intact 205(H) 16 - 77 pg/mL 06/06/2023 1:16 AM EDT [facility] Comment: Interpretive Guide Intact PTH Calcium [...] 06/09/2023 5:04 AM EDT FASTING:NO Anupama Bynum LAB BLOOD ORDERABLES Final Resul t Performing Organization Address City/[facility]/ZIP Co de Phone Number [facility] [address], [facility] [place] [address], [place] [phone] [facility] [address] [address] * (ABNORMAL) Renal Function Panel (06/05/2023 11:53 AM EDT) Glucose 89 65 - 139 mg/dL 06/05/2023 10:49 PM EDT [facility] Comment: Non-fasting reference interval BUN 39(H) 7 - 25 mg/dL 06/05/2023 10:49 PM EDT [facility] Creatinine 2.61(H) 0.50 - 1.03 mg/dL 06/05/2023 10:49 PM EDT [facility] eGFR 21(L) > OR = 60 mL/min/1. 73m2 06/05/2023 10:49 PM EDT [facility] Bun/Creatinine Ratio 15 6 - 22 (calc) 06/05/2023 10:49 PM EDT [facility] Sodium 137 135 - 146 mmol/L 06/05/2023 10:49 PM EDT [facility] Potassium 4.6 3.5 - 5.3 mmol/L 06/05/2023 10:49 PM EDT [facility] Chloride 111(H) 98 - 110 mmol/L 06/05/2023 10:49 PM EDT [facility] Carbon Dioxide 18(L) 20 - 32 mmol/L 06/05/2023 10:49 PM EDT [facility] Calcium 9.8 8.6 - 10.4 mg/dL 06/05/2023 10:49 PM EDT [facility] Phosphate 3.5 2.5 - 4.5 mg/dL 06/05/2023 10:49 PM EDT [facility] Albumin 4.0 3.6 - 5.1 g/dL 06/05/2023 10:49 PM EDT [facility] Blood Structure of peripheral vein / Unknown 06/05/2023 11:53 AM EDT 06/05/2023 7:56 PM EDT Narrative [facility] - 06/09/2023 5:04 AM EDT FASTING:NO us Anupama Bynum DO LAB BLOOD ORDERABLES Final Resul t [facility] [address] [facility] [address], [place] [address], [facility] [address] [place] [address] from Last 3 Months or Most Recently Relevant to Health Maintenance Insurance * Guarantor: Aneta Gan Account Type Relation to Patient Date of Phone Billing Address Personal/Family Self 1965 [phone] (Work) [address] [place] [address] [facility] [place] [id number] * Guarantor: Aneta Gan Account Type Relation to Patient Date of Phone Billing Address Transplant Self 1965 [phone] (Work) [address] [place] [id number] [place] [address] Advance Directives Documents on File Type Date Recorded Patient Parcel Post Order Clerk Expl [facility] Care Proxy 12/25/2024 8:48 AM 12/11 Care Teams Physician Office Specialist Relationship Specialty Start Date End Date Franklin Sanchez PA [address] [place] [address] PCP - General 06/05/23
--- OUTSIDE RECORDS SUMMARY | 2025-04-28 18:09 | XMS_ITS | Clinical Summary ---
Author Organization [facility] Address [address] [place] [address] Phone Care Team Providers Care Residential Assistant Name Role Phone Unavailable Primary Care Provider [...] 03/02/2016 Active ergocalciferol (VITAMIN D-2) 1.25 MG (83058 UT) capsule Take 1 capsule by mouth [...] Vaccine (#1) 2025 Insurance [facility] Medicaid [place] [facility] Medicaid [place]
--- OUTSIDE RECORDS SUMMARY | 2025-04-28 18:10 | XMS_ITS | Clinical Summary ---
Author Organization [facility] Address [address] [place] [address] Care Team Providers Care Manager Engine Name Role Phone Franklin Sanchez Primary Care [...] Vaccine (1 of 2) 2015 Influenza Vaccine 03/06/2025 COVID-19 Vaccine (1 - 2023-25 season) [address] [place] [address] [facility] Care Teams Manager Engine Relationship Specialty Start Date End Date Franklin Sanchez PA [facility] [place] [address] PCP - General Adult Health - PA/APNP/SPOT CHECKER/DUST HANDLER 07/20/21
== END 2025-04-28 15:30 | disposition home or self-care (01) ==
LOC: HO.ACS 15:11
PROVIDERS: PCP Physician Assistant; Visit Provider Internal Medicine Medical Oncology
DX: Z79.01 Long term (current) use of anticoagulants (principal)

== ENCOUNTER → 2025-04-28 15:11 | Outpatient (BNVA) | payer OTHER, MEDICAID, SELFPAY | PROVIDERS: PCP Physician Assistant; Visit Provider Internal Medicine Medical Oncology | DX: I26.99 Other pulmonary embolism without acute cor pulmonale (principal); Z79.01 Long term (current) use of anticoagulants; Z51.81 Encounter for therapeutic drug level monitoring | CPT/HCPCS: 85610; 99211 ==

== ENCOUNTER 2025-05-14 15:39 | Outpatient (AMB) | payer OTHER, MEDICAID, SELFPAY ==
[2025-05-14 15:43] LABS: Prothrombin Time Whole Bld POC 35.1 sec (11.1-13.5); ~PT, ~INR - Anti Coag Clinic 2.9 (0.9-1.1)
--- NOTE | 2025-05-14 15:54 | MHC.OFFVISCO ---
Intake Intake Visit Reasons: Anticoagulation Allergies rituximab (From Rituxan) Allergy (Severe, Verified 05/14/25 15:39) Anaphylaxis cephalexin (From Keflex) Allergy (Unknown, Verified 05/14/25 15:39) RED+ITCHY,RASH Cephalosporins (CEPHALOSPORINS) Allergy (Unknown, Verified 05/14/25 15:39) RED+ITCHY Sulfa (Sulfonamide Antibiotics) (SULFA(SULFONAMIDE ANTIBIOTICS)) Allergy (Unknown, Verified 05/14/25 15:39) RED+ITCHY mycophenolate mofetil (From CellCept) Adverse Reaction (Intermediate, Verified 05/14/25 15:39) rash cellcept Allergy (Severe, Uncoded 05/14/25 15:39) Hives retuxin Adverse Reaction (Severe, Uncoded 05/14/25 15:39) Abdominal Pain Medication List - Last Reconciled 05/14/25 by Joann Braden RN atorvastatin 20 mg PO BEDTIME 30 days calcitriol 0.25 mcg PO DAILY clobetasol 0.05% 1 appl topical DAILY fluocinonide 0.05% appl topical gabapentin 200 mg PO DAILY PRN levothyroxine 100 mcg PO DAILY lisinopril 2.5 mg PO DAILY loratadine 10 mg PO DAILY PRN magnesium oxide 250 mg PO BID prednisone 2.5 mg PO DAILY sodium bicarbonate 650 mg PO BID warfarin 5 mg See Protocol PO DAILY Nursing Note INR: 2.9 in therapeutic range of 2-3 Medications and supplements reviewed No changes in health, diet, medications, or supplements, Denies any signs and symptoms of bleeding or bruising or clotting. Bleeding, bruising, clotting discussed Nutritional guidance given to have a serving of greens today Dose: 2.5mg X 6 days and 5mg X 1 day () F/U INR: 3 weeks Patient verbalizes understanding of instructions given Anti-Coag Initial Assessment Social Hx Patient Tobacco Use Status: Former Tobacco user Tobacco use type: Cigarette alcohol intake: former Alcohol intake frequency: does not drink Coding Level of Care Code Est Patient Level 1 Diagnoses Current use of anticoagulant therapy Z79.01 Results AMB INR Fingerstick AMB INR Fingerstick 2.9 Last Edit by Joann Braden RN on 05/14/25 15:44 interface delay Assessment & Plan Assessment & Plan (1) Current use of anticoagulant therapy: Code(s): Z79.01 - remote computer terminal operator (current) use of anticoagulants Category: Medical
== END 2025-05-14 15:57 | disposition home or self-care (01) ==
LOC: HO.ACS 15:39
PROVIDERS: PCP Physician Assistant; Visit Provider Internal Medicine Medical Oncology
DX: Z79.01 Long term (current) use of anticoagulants (principal)

== ENCOUNTER → 2025-05-14 15:39 | Outpatient (BNVA) | payer OTHER, MEDICAID, SELFPAY | PROVIDERS: PCP Physician Assistant; Visit Provider Internal Medicine Medical Oncology | DX: I26.99 Other pulmonary embolism without acute cor pulmonale (principal); Z79.01 Long term (current) use of anticoagulants; Z51.81 Encounter for therapeutic drug level monitoring | CPT/HCPCS: 85610; 99211 ==

== ENCOUNTER 2025-05-29 15:13 | Outpatient (REF) | payer OTHER, MEDICAID, SELFPAY ==
[2025-05-29 15:58] LABS: Hematocrit 32.7 % (37.0-47.0); Hemoglobin 10.6 g/dl (12.0-16.0); Mean Corpuscular HGB Conc 32.4 g/dl (31.0-35.0); Mean Corpuscular Hemoglobin 29.9 pg (27.0-33.0); Mean Corpuscular Volume 92.1 fL (80.0-98.0); NRBC Abs Auto 0.000 X10*3/uL (0.0-0.012); NRBC Pct Auto 0.0 /100WBC (0.0-0.2); Platelet Count 262 X10*3/uL (160-400); Red Blood Count 3.55 X10*6/uL (4.20-5.50); White Blood Count 7.3 X10*3/uL (4.8-10.8)
[2025-05-29 16:20] LABS: Anion Gap 10 (12-20); Blood Urea Nitrogen 46 mg/dL (9-16); Calcium 9.9 mg/dL (8.4-10.2); Carbon Dioxide 21 mmol/L (22-29); Chloride 116 mmol/L (96-108); Estimated Glomerular Filt Rate 14; Potassium 4.6 mmol/L (3.3-5.1); Sodium 142 mmol/L (135-145)
[2025-05-29 16:28] LABS: Parathyroid Hormone Intact 283.9 pg/mL (8.7-77.1)
--- OUTSIDE RECORDS SUMMARY | 2025-05-29 16:49 | XMS_ITS | Clinical Summary ---
Author Organization [facility] Address [address] [place] [address] Care Team Providers Care Project Lead Name Role Phone Franklin Sanchez Primary Care [...] Influenza Vaccine 03/06/2025 COVID-19 Vaccine (1 - 2023- season) 2025 RSV Vaccine 50 years and old er and Patients (1 - 1-dose 75+ series) 2040 [place] [address] [facility] Care Teams Project Lead Relationship Specialty Start Date End Date Franklin Sanchez PA [address] [place] [address] PCP - General Adult Health - PA/APNP/COMPUTER ARTIST/BOAT DETAILER 07/20/21
--- OUTSIDE RECORDS SUMMARY | 2025-05-29 16:49 | XMS_ITS | Clinical Summary ---
Author Organization [facility] Address [address] [place] [address] Care Team Providers Care Caster Operator Name Role Phone Franklin Sanchez Primary Care Provider [phone] Allergies Active Allergy Reactions Criticality Noted Date Comments Cephalexin Rash Medium 11/04/2020 Cephalosporins Itching 05/26/2025 Mycophenolate Mofetil Hives,Rash 05/26/2025 Penicillins Other (see comments) 11/04/2020 Rituximab Anaphylaxis High 05/26/2025 Sulfa (Sulfonamide Antibiotics) Itching 05/07 Medications calcium carbonate-vitami n D3 500 mg-200 [...] propionate (FLONASE) 50 mcg/actuation nasal spray SMART[facility] [place](s) Both Nares Twice Daily 5 Active sodium bicarbonate 650 mg tablet SMARTSI Tablet(s) By Mouth Twice Daily 5 Active predniSONE (DELTASONE) 2.5 mg tablet 5 Active Active Problems No known active problems Encounters Date Type Department Care Team Description 03/19/2025 Documentation [facility] Transplant Department [address] [place] [address] Delores Sepulveda LICSW from Last 3 Months Family History Medical [...] Info) Description 12/08/2025 8:20 AM EDT Follow-Up [facility] Renal Transplant [address] [place] [address] Franklin Flowers MD [address] [place] [address] 12/08/2025 9:00 AM EDT Social Work [facility] Renal Transplant [address] [place] [address] Delores Sepulveda, PROMOTIONAL MARKETING ANALYST [address] [place] [address] Health Maintenance Due Date Last Done Comments [...] Screening Completed 12/11/2024 Procedures * Due to [place] [email or web address] law, this organization might not be sharing negative HIV tests. Procedure Name Priority Date/Time Associated Diagnosis Comments HEPATITIS C ANTIBODY W/REFLEX TO HCV RNA, [...] to Health Maintenance Results * Due to [place] state law, this organization might not be sharing negative HIV tests. * (ABNORMAL) CBC Auto Differential (12/11/2024 12:08 PM EDT) WBC 6.6 3.8 - 10.8 10*3/uL 12/11/2024 12:32 PM EDT [facility] RBC 3.52(L) 3.80 - 5.10 10*6/uL 12/11/2024 12:32 PM EDT [facility] Hemoglobin 10.4(L) 11.7 - 15.5 g/dL 12/11/2024 12:32 PM EDT [facility] Hematocrit 33.1(L) 35.0 - 45.0 % 12/11/2024 12:32 PM EDT [facility] MCV 94.0 80.0 - 100.0 fL 12/11/2024 12:32 PM EDT [facility] MCH 29.5 27.0 - 33.0 pg 12/11/2024 12:32 PM EDT [facility] MCHC 31.4(L) 32.0 - 36.0 g/dL 12/11/2024 12:32 PM EDT [facility] RDW 13.3 11.0 - 15.0 % 12/11/2024 12:32 PM EDT [facility] Platelets 289 140 - 400 10*3/uL 12/11/2024 12:32 PM EDT [facility] MPV 10.4 7.5 - 12.5 fL 12/11/2024 12:32 PM EDT [facility] Neutrophil % 58.9 % 12/11/2024 12:32 PM EDT [facility] Immature Grans % 0.5 0.0 - 0.9 % 12/11/2024 12:32 PM EDT [facility] Lymphocyte % 30.5 % 12/11/2024 12:32 PM EDT [facility] Monocyte % 5.8 % 12/11/2024 12:32 PM EDT [facility] Eosinophil % 3.8 % 12/11/2024 12:32 PM EDT [facility] Basophil % 0.5 % 12/11/2024 12:32 PM EDT [facility] Neutrophil # 3.86 1.50 - 7.80 10*3/uL 12/11/2024 12:32 PM EDT [facility]MedPassage[facility] Immature Grans # 0.03 <=0.03 10*3/uL 12/11/2024 12:32 PM EDT [facility]MedPassage[facility] Lymphocyte # 2.00 0.85 - 3.90 10*3/uL 12/11/2024 12:32 PM EDT [facility] Monocyte # 0.40 0.20 - 0.95 10*3/uL 12/11/2024 12:32 PM EDT [facility] MEXICOFashion RepublicPARMA [facility] Eosinophil # 0.30 0.02 - 0.50 10*3/uL 12/11/2024 12:32 PM EDT [facility] Basophil # <0.03 0.00 - 0.20 10*3/uL 12/11/2024 12:32 PM EDT [facility] nRBC % 0.0 /100 WBCs 12/11/2024 12:32 PM EDT [facility] M[facility]ICOCompact Particle AccelerationVT [facility] nRBC # <0.01 <0.01 10*3/uL 12/11/2024 12:32 PM EDT [facility]Comp[facility] GroupVT [facility] Blood Structure of peripheral vein / Unknown Venipuncture / Unknown 12/11/2024 12:08 PM EDT 12/11/2024 12:24 PM EDT us Franklin Flowers MD LAB BLOOD ORDERABLES [place] bartholomew Result [facility] [address] [place] [address], * Hepatitis C Antibody w/Reflex to PCR (12/11/2024 12:08 PM EDT) Hepatitis C Antibody NON-REACT MARSHALL NON-REACT MARSHALL 12/12/2024 6:33 AM EDT [facility] Comment: HCV antibody was non-reactive. There is no laboratory evidence of HCV infection. In most cases, no further action is required. However, if recent HCV exposure is suspected, a test for HCV RNA (test code 37940) is suggested. For additional information please refer to http://[employer]Publicate/faq/MEZ24y3 (This link is being provided for informational/ educational purposes only.) Blood Structure of peripheral vein / Unknown Venipuncture / Unknown 12/11/2024 12:08 PM EDT 12/11/2024 12:23 PM EDT Narrative [facility] 12/12/2024 6:33 AM EDT [facility] Received Date:[id number] Franklin Flowers MD LAB BLOOD ORDERABLES [place] l Result [facility] [address] [facility] [address] Floor, [place] [address], [place] [phone] [employer] [facility] [address], [place] [address], [place] [phone] * Phosphorus (12/11/2024 12:08 PM EDT) Phosphorus 3.4 2.5 - 4.5 mg/dL 12/11/2024 12:59 PM EDT [facility] Blood Structure of peripheral vein / Unknown Venipuncture / Unknown 12/11/2024 12:08 PM EDT 12/11/2024 12:26 PM EDT Franklin Flowers MD LAB BLOOD ORDERABLES [place] l Result [facility] [address] [place] [address], [place] * (ABNORMAL) Microalbumin, Random Urine with Creatinine (08/07/2023 9:01 AM EST) Creatinine, Random Urine 92 20 - 275 mg/dL 08/08/2023 6:45 PM EST [employer] [facility] Microalbumin 150.8 mg/dL 08/08/2023 6:45 PM EST [facility] Comment: Verified by repeat analysis. Reference Range Not established Microalbumin/Crea tinine Ratio, Random Urine 1,639(H) <30 mcg/mg creat 08/08/2023 6:45 PM EST [facility] Comment: The ADA defines abnormalities [...] ORDERABLES Final Resul t [facility] [address] [facility] [address], [place] [address], [employer] [facility] [address] [place] [address] * (ABNORMAL) Vitamin D, 25-Hydroxy, Total, Immunoassay (06/05/2023 11:53 AM EDT) Calcidiol+ercalc idiol 22(L) 30 - 100 ng/mL 06/05/2023 9:28 PM EDT [facility] [facility] Comment: Vitamin D Status 25-OH Vitamin D: Deficiency: <20 ng/mL Insufficiency: 20 - 29 ng/mL Optimal: > or = 30 ng/mL For 25-OH Vitamin D testing on patients on D2-supplementation and patients for whom quantitation of D2 and D3 fractions is required, the QuestAssureD(TM) 25-OH VIT D, (D2,D3), LC/MS/MS is recommended: order code 75256 (patients >2yrs). See Note 1 Note 1 For additional information, please refer to http://education.Galav[employer]ier/faq/EJA524 (This link is being provided for informational/ educational purposes only.) Blood Structure of peripheral vein / Unknown 06/05/2023 11:53 AM EDT 06/05/2023 7:56 PM EDT Narrative [facility] - 06/09/2023 5:04 AM EDT FASTING:NO [facility] LAB BLOOD ORDERABLES Final Resul t Performing Organization Address City/[facility] Co de Phone Number [facility] [address] [place] [address], [place] [address], [place] [phone] [address] [address] * (ABNORMAL) PTH, Intact (without Calcium) (06/05/2023 11:53 AM EDT) Parathyroid Hormone, Intact 205(H) 16 - 77 pg/mL 06/06/2023 1:16 AM EDT [employer] [facility] Comment: Interpretive Guide Intact PTH Calcium ------- Normal Parathyroid Normal Normal Hypoparathyroidism Low or Low Normal Low Hyperparathyroidism Primary Normal or High High Secondary High Normal or Low Tertiary High High Non-Parathyroid Hypercalcemia Low or Low Normal High Blood Structure of peripheral vein / Unknown 06/05/2023 11:53 AM EDT 06/05/2023 11:02 PM EDT Narrative [facility] - 06/09/2023 5:04 AM EDT FASTING:NO [facility] LAB BLOOD ORDERABLES Final Resul t Performing Organization Address [facility]/ZIP Co de Phone Number [facility] [address], [place] [address], [place] [phone] [address] [address] * (ABNORMAL) Renal Function Panel (06/05/2023 11:53 AM EDT) Glucose 89 65 - 139 mg/dL 06/05/2023 10:49 PM EDT [facility] Comment: Non-fasting reference interval BUN 39(H) 7 - 25 mg/dL 06/05/2023 10:49 PM EDT [facility] Creatinine 2.61(H) 0.50 - 1.03 mg/dL 06/05/2023 10:49 PM EDT [employer] [facility] eGFR 21(L) > OR = 60 mL/min/1. 73m2 06/05/2023 10:49 PM EDT [facility] Bun/Creatinine Ratio 15 6 - 22 (calc) 06/05/2023 10:49 PM EDT [facility] Sodium 137 135 - 146 mmol/L 06/05/2023 10:49 PM EDT [employer] [facility] Potassium 4.6 3.5 - 5.3 mmol/L 06/05/2023 10:49 PM EDT [facility] [facility] Chloride 111(H) 98 - 110 mmol/L 06/05/2023 10:49 PM EDT [employer] [facility] Carbon Dioxide 18(L) 20 - 32 mmol/L 06/05/2023 10:49 PM EDT [facility] Calcium 9.8 8.6 - 10.4 mg/dL 06/05/2023 10:49 PM EDT [facility] Phosphate 3.5 2.5 - 4.5 mg/dL 06/05/2023 10:49 PM EDT [facility] Albumin 4.0 3.6 - 5.1 g/dL 06/05/2023 10:49 PM EDT [facility] Blood Structure of peripheral vein / Unknown 06/05/2023 11:53 AM EDT 06/05/2023 7:56 PM EDT Narrative [facility] - 06/09/2023 5:04 AM EDT FASTING:NO us Anupama Bynum DO LAB BLOOD ORDERABLES Final Resul t [facility] [address] [facility] [address], [place] [address], [facility] [address] [place] [address] from Last 3 Months or Most Recently Relevant to Health Maintenance Insurance * Guarantor: Aneta Gan Account Type Relation to Patient Date of Phone Billing Address Personal/Family Self 1965 [phone] (Work) [address] [place] [phone] [facility] * Guarantor: Aneta Gan Account Type Relation to Patient Date of Phone Billing Address Transplant Self 1965 [phone] (Work) [address] [place] [phone] [facility] Advance Directives Documents on File Type Date Recorded Patient Traffic Lieutenant Expl [facility] Care Proxy 12/25/2024 8:48 AM 12/11 Care Teams Caster Operator Relationship Specialty Start Date End Date Franklin Sanchez PA [address] [place] [address] PCP - General 06/05/23
--- OUTSIDE RECORDS SUMMARY | 2025-05-29 16:49 | XMS_ITS ---
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
--- OUTSIDE RECORDS SUMMARY | 2025-05-29 16:49 | XMS_ITS | Clinical Summary ---
Author Organization [facility] Address [address] [place] [address] Phone Care Team Providers Care Home Energy Inspector Name Role Phone Unavailable Primary Care Provider [...] 03/02/2016 Active ergocalciferol (VITAMIN D-2) 1.25 MG (19538 UT) capsule Take 1 capsule by mouth [...] Vaccine (#1) 2025 Insurance [facility] [place] [facility] [place]
--- OUTSIDE RECORDS SUMMARY | 2025-05-29 16:49 | XMS_ITS | Encounter Summary ---
Author Organization [facility] Address [address] [place] [address] Phone Care Team Providers Care Authorization Representative Name Role Phone Unavailable Primary Care Provider Unavailabl e Encounter Details Date Type Department Care Team (Late st Contact Info) Description 08/10/2022 Telephone [facility] [address] [place] [address] Roe Morrissey MD Social History [...] Iris Gee - 08/10/2022 10:19 AM EST [facility] insurance verification called, pt will need a PA for her truxima infusion that is scheduled for tomorrow. This will need to go through [facility]. documented in this encounter Plan of [...] EDT) Calcium 9.1 8.4 - 10.2 mg/dL [place] 11/06/2022 4:20 PM EDT 11/06/2022 4:20 PM EDT Roe Morirssey MD LAB BLOOD ORDERABLES Final Res ult [place] * (ABNORMAL) Creatinine (11/06/2022 4:20 PM EDT) Creatinine Serum 2.59(H) 0.5 - 1.4 mg/dL [place] eGFR (Calc) 19 [facility] Comment: NOTE: For -[place] individuals, multiply the result by 1.210. Chronic Kidney Disease: Estimated GFR < 60 mL/min/1.73m2 Severe Kidney Disease: Estimated GFR < 15 mL/min/1.73m2 11/06/2022 4:20 PM EDT 11/06/2022 4:20 PM EDT Roe Morrissey MD LAB BLOOD ORDERABLES Final Res ult Performing Organization Address City/[facility]/ZIP Co de Phone Number [place] * (ABNORMAL) BUN (11/06/2022 4:20 PM EDT) BUN 44(H) 9 - 16 mg/dL [place] 11/06/2022 4:20 PM EDT 11/06/2022 4:20 PM [...]
== END 2025-05-29 15:14 | disposition home or self-care (01) ==
LOC: HO.LAB 15:13
PROVIDERS: PCP Physician Assistant; Visit Provider Internal Medicine Hypertension Specialist
DX: N18.4 Chronic kidney disease, stage 4 (severe) (principal); M32.14 Glomerular disease in systemic lupus erythematosus
CPT/HCPCS: 36415; 80048; 83970; 84100; 85027

== ENCOUNTER 2025-06-01 15:22 | Outpatient (AMB) | payer OTHER, MEDICAID, SELFPAY ==
--- NOTE | 2025-06-01 15:23 | HO.NEPHOV_ITS ---
Vital Signs 06/01/25 15:24 Height 5 ft Weight 142 lb BMI 27.7 BP 124/68 Blood Pressure Location Lt brachial Position Sitting Pulse 85 Pulse Source Pulse Oximeter Pulse Oximetry (%) 98 Oxygen Delivery Method Room Air Intake Visit Reasons: 3mon f/u w/labs lvm Stylist Assistant Required: No Accompanied by: Self / Same As Patient Allergies rituximab (From Rituxan) Allergy (Severe, Verified 06/01/25 15:25) Anaphylaxis cephalexin (From Keflex) Allergy (Unknown, Verified 06/01/25 15:25) RED+ITCHY,RASH Cephalosporins (CEPHALOSPORINS) Allergy (Unknown, Verified 06/01/25 15:25) RED+ITCHY Sulfa (Sulfonamide Antibiotics) (SULFA(SULFONAMIDE ANTIBIOTICS)) Allergy (Unknown, Verified 06/01/25 15:25) RED+ITCHY mycophenolate mofetil (From CellCept) Adverse Reaction (Intermediate, Verified 06/01/25 15:25) rash cellcept Allergy (Severe, Uncoded 05/14/25 15:39) Hives retuxin Adverse Reaction (Severe, Uncoded 05/14/25 15:39) Abdominal Pain Medication List - Last Reconciled 06/01/25 by Roe Morrissey MD atorvastatin 20 mg PO BEDTIME 30 days calcitriol 0.25 mcg PO DAILY clobetasol 0.05% 1 appl topical DAILY fluocinonide 0.05% appl topical gabapentin 200 mg PO DAILY PRN levothyroxine 100 mcg PO DAILY lisinopril 2.5 mg PO DAILY loratadine 10 mg PO DAILY PRN magnesium oxide 250 mg PO BID prednisone 2.5 mg PO DAILY sodium bicarbonate 650 mg PO BID warfarin 5 mg See Protocol PO DAILY HPI Comments Details: Aneta 59-year-old woman with history of SLE. She has chronic kidney disease. In 2001, she had a kidney biopsy which showed membranous nephropathy. She was treated with Cytoxan and prednisone and obtain remission. She would relapsed again and was treated with mycophenolate followed by active but she did not tolerate these medications and she refused treatment. She did receive a dose of Rituxan in early August 2022 and subsequently did not want further treatment due to perceived side effects. 12/10/23: Doing well today ;Waiting for Benlysta 03/25/24 ;Insurance did not cover Benlysta ; Now she is on Cellcept 06/17/24 ;Off Cellcept; on prednisone 2.5mg ; No new issues 09/25/24 ;Recently had COVID ;Feels tired 03/02/25: Overall doing ok. Being evaluated for transplant in [place] 06/01/25 - The patient is a 59-year-old female with CKD 5 /SLE - Currently on 2.5 mg prednisone, monitored by correctional captain. - No joint pain or leg swelling; stable hemoglobin and potassium levels. - Awaiting Pap smear for preventative care. [facility] Medical History Prediabetes SLE glomerulonephritis syndrome History of pulmonary embolism Vitamin D deficiency Hypertriglyceridemia Hypothyroidism Surgical History Hx of tubal ligation Family History Father Family history unknown Mother Hypertension Diabetes Deep vein thrombosis CVA (cerebral vascular accident) Brother CVA (cerebral vascular accident), Onset Age: 48 Brother CVA (cerebral vascular accident), Onset Age: 38 Social History Household Members: None Housing: House Alcohol intake: former Patient Tobacco Use Status: Former Tobacco user Tobacco use type: Cigarette e-Cigarette/Vaping Use: Never Used Second Hand Smoke Exposure: Yes service: No Current occupational status: employed 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 Lungs entry equal no rales. Heart S1-S2 heard no gallop or rub. Abdomen soft nontender. Neuro alert awake oriented. No asterixis. Extremities no edema. Results Reviewed Nephrology Results: Hgb, (12.0-16.0) 10.6 g/dl L 05/29/25 WBC, (4.8-10.8) 7.3 X10*3/uL 10/24/25 Plt Count, (160-400) 262 X10*3/uL 24/25 Sodium, (135-145) 142 mmol/L 24/25 Potassium, (3.3-5.1) 4.6 mmol/L /24/25 Chloride, (96-108) 116 mmol/L H 24/25 Carbon Dioxide, (22-29) 21 mmol/L L 24/25 BUN, (9-16) 46 mg/dL H 24/25 Creatinine, (0.5-1.4) 3.41 mg/dL H 24/25 Calcium, (8.4-10.2) 9.9 mg/dL 24/25 Phosphorus, (2.7-4.5) 3.5 mg/dL 24/25 PTH Intact, (8.7-77.1) 283.9 pg/mL H 24/25 Assessment & Plan Assessment & Plan (1) CKD (chronic kidney disease) stage 4, GFR 15-29 ml/min: Code(s): N18.4 - Chronic kidney disease, stage 4 (severe) Category: Medical Plan: Due to underlying lupus nephropathy. Advanced CKD No signs or symptoms of uremia. No absolute indication to start her on renal replacement therapy yet. 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 Mild anemia in the setting of lupus and CKD. No indication for Epogen yet. We will screen for secondary hyperparathyroidism. Maintain blood pressure less than 130/80. Continue to avoid nephrotoxic agents including NSAIDs. h/o Hypercalcemia - Decreased Calcitriol CA BACK TO NORMAL Watch PTH Advanced CKD approaching ESRD renal transplant evaluation in progress in [place] Refer to PD education. ( done) . (2) Lupus (systemic lupus erythematosus): Comment: onset 2696-4421 Treated with Cytoxan and prednisone Coumadin throughout Cyclosporin 2005 DC due to epigastric pain CellCept 2008 up titrated to 3 g daily, developed worsening proteinuria Rituximab 2 doses, 2 weeks apart 2010 Believes that she took hydroxychloroquine and discontinued it due to tinnitus ?! Benlysta 02/2012 was helpful especially for skin lesions. Discontinued due to loss of insurance Acthar gel 2016 took it for about a year inconsistently Repeat kidney biopsy 04/2022 showed class 3 and 5 nephritis. Received 1 dose of rituximab 08/2022 with some improvement Benlysta 12/2023. DC 02/2024. Could not afford co-pay CellCept tried again 02/2024. DC'd after 1 dose due to rash Code(s): M32.9 - Systemic lupus erythematosus, unspecified Category: Medical Qualifiers: Systemic lupus erythematosus organ involvement: glomerular disease Systemic lupus erythematosus type: other Qualified Code(s): M32.14 - Glomerular disease in systemic lupus erythematosus (3) SLE glomerulonephritis syndrome: Comment: onset 1602-9553 class 3 and class 5 nephritis, low C3, low C4 Repeat kidney biopsy 04/2022 showed class 3 and 5 nephritis. Received 1 dose of rituximab 08/2022 with some improvement Code(s): M32.14 - Glomerular disease in systemic lupus erythematosus Category: Medical Plan: Unable to tolerate Cyclosporin/CEllcept/Rituxan Plan . Orders: Orders Basic Metabolic Panel 3 Months N18.4 - Chronic kidney disease, stage 4 (severe) Complete Blood Count no Diff 3 Months N18.4 - Chronic kidney disease, stage 4 (severe) Coding Level of Care Code Est Pt Level 4 (13644) Diagnoses CKD (chronic kidney disease) stage 4, GFR 15-29 ml/min N18.4 Other systemic lupus erythematosus with glomerular disease M32.14 Systemic lupus erythematosus organ involvement: glomerular disease Systemic lupus erythematosus type: other SLE glomerulonephritis syndrome M32.14
[2025-06-01 15:24] VITALS: BP 124/68; PULSE 85; O2SAT 98; BMI 27.7
--- OUTSIDE RECORDS SUMMARY | 2025-06-01 18:38 | XMS_ITS | Clinical Summary ---
Author Organization [facility] Address [address] [place] [address] Phone Care Team Providers Care Carding Doubler Name Role Phone Unavailable Primary Care Provider [...] 03/02/2016 Active ergocalciferol (VITAMIN D-2) 1.25 MG (98917 UT) capsule Take 1 capsule by mouth [...] Vaccine (#1) 2025 Insurance [facility] Medicaid [place] [facility] Medicaid [place]
--- OUTSIDE RECORDS SUMMARY | 2025-06-01 18:38 | XMS_ITS | Clinical Summary ---
Author Organization [facility] Address [address] [place] [address] Care Team Providers Care Plywood Scarfer Tender Name Role Phone Franklin Sanchez Primary Care Provider [phone] Allergies Active Allergy Reactions Criticality Noted Date [...] propionate (FLONASE) 50 mcg/actuation nasal spray SMARTSI [place](s) Both Nares Twice Daily 5 Active sodium bicarbonate 650 mg tablet SMARTSI Tablet(s) By Mouth Twice Daily 5 Active predniSONE (DELTASONE) 2.5 mg tablet 5 Active Active Problems No known active problems Encounters Date Type Department Care Team Description 03/19/2025 Documentation [facility] Transplant Department [address] [place] [address] Delores Sepulveda LICSW from Last 3 Months [...] Info) Description 12/08/2025 8:20 AM EDT Follow-Up [facility] Renal Transplant [address] [place] [address] Franklin Flowers MD [address] [place] [address] 12/08/2025 9:00 AM EDT Social Work [facility] Renal Transplant [address] [place] [address] Delores Sepulveda, MANNEQUIN WIG MAKER [address] [place] [address] Health Maintenance Due Date Last Done Comments [...] Screening Completed 12/11/2024 Procedures * Due to [place] [employer] law, this organization might not be sharing [...] - 5.10 10*6/uL 12/11/2024 12:32 PM EDT [facility] Hemoglobin 10.4(L) 11.7 - 15.5 g/dL 12/11/2024 12:32 PM EDT [facility] Hematocrit 33.1(L) 35.0 - 45.0 % 12/11/2024 12:32 PM EDT [facility] MCV 94.0 80.0 - 100.0 fL 12/11/2024 12:32 PM EDT [facility] MCH 29.5 27.0 - 33.0 pg 12/11/2024 12:32 PM EDT [facility] MCHC 31.4(L) 32.0 - 36.0 g/dL 12/11/2024 12:32 PM EDT [facility] RDW 13.3 11.0 - 15.0 % 12/11/2024 12:32 PM EDT [facility] Platelets 289 140 - 400 10*3/uL 12/11/2024 12:32 PM EDT [facility] MPV 10.4 7.5 - 12.5 fL 12/11/2024 12:32 PM EDT [facility] Neutrophil % 58.9 % 12/11/2024 12:32 PM EDT [facility] Immature Grans % 0.5 0.0 - 0.9 % 12/11/2024 12:32 PM EDT [facility] Lymphocyte % 30.5 % 12/11/2024 12:32 PM EDT [facility] Monocyte % 5.8 % 12/11/2024 12:32 PM EDT [facility] Eosinophil % 3.8 % 12/11/2024 12:32 PM EDT [facility] Basophil % 0.5 % 12/11/2024 12:32 PM EDT [facility] Neutrophil # 3.86 1.50 - 7.80 10*3/uL 12/11/2024 12:32 PM EDT [facility] Immature Grans # 0.03 <=0.03 10*3/uL 12/11/2024 12:32 PM EDT [facility] Lymphocyte # 2.00 0.85 - 3.90 10*3/uL 12/11/2024 12:32 PM EDT [facility] Monocyte # 0.40 0.20 - 0.95 10*3/uL 12/11/2024 12:32 PM EDT [facility] Eosinophil # 0.30 0.02 - 0.50 10*3/uL 12/11/2024 12:32 PM EDT [facility] Basophil # <0.03 0.00 - 0.20 10*3/uL 12/11/2024 12:32 PM EDT [facility] nRBC % 0.0 /100 WBCs 12/11/2024 12:32 PM EDT [facility]ENTERDynatherm MedicalIN [facility] nRBC # <0.01 <0.01 10*3/uL 12/11/2024 12:32 PM EDT [facility] Blood Structure of peripheral vein / Unknown Venipuncture / Unknown 12/11/2024 12:08 PM EDT 12/11/2024 12:24 PM EDT us Franklin Flowers MD LAB BLOOD ORDERABLES [place] bartholomew Result [facility] [address] [place] [address], * Hepatitis C Antibody w/Reflex to PCR (12/11/2024 12:08 PM EDT) Hepatitis C Antibody NON-REACT MARSHALL NON-REACT MARSHALL 12/12/2024 6:33 AM EDT [facility] Comment: HCV antibody was non-reactive. There is no laboratory evidence of HCV infection. In most cases, no further action is required. However, if recent HCV exposure is suspected, a test for HCV RNA (test code 06787) is suggested. For additional information please refer to http://Curverider.Existence Before [employer]ence/faq/TMJ87k9 (This link is being provided for informational/ educational purposes only.) Blood Structure of peripheral vein / Unknown Venipuncture / Unknown 12/11/2024 12:08 PM EDT 12/11/2024 12:23 PM EDT [facility] 12/12/2024 6:33 AM EDT [facility] Received Date:[id number] Franklin Flowers MD LAB BLOOD ORDERABLES [place] l Result [facility] [address] [facility] 3rd Floor, [place] [address], [place] [phone] [facility] [address], [place] [address], [place] [phone] * Phosphorus (12/11/2024 12:08 PM EDT) Phosphorus 3.4 2.5 - 4.5 mg/dL 12/11/2024 12:59 PM EDT [facility] Blood Structure of peripheral vein / Unknown Venipuncture / Unknown 12/11/2024 12:08 PM EDT 12/11/2024 12:26 PM EDT Franklin Flowers MD LAB BLOOD ORDERABLES [place] l Result [facility] [address] [place] [address], [place] * (ABNORMAL) Microalbumin, Random Urine with Creatinine (08/07/2023 9:01 AM EST) Creatinine, Random Urine 92 20 - 275 mg/dL 08/08/2023 6:45 PM EST [facility] Microalbumin 150.8 mg/dL 08/08/2023 6:45 PM EST [facility] Comment: Verified by repeat analysis. Reference Range Not established Microalbumin/Crea tinine Ratio, Random Urine 1,639(H) <30 mcg/mg creat 08/08/2023 6:45 PM EST [facility] Comment: The ADA defines abnormalities [...] [facility] [address] Floor, [place] [address], [facility] [address] [place] [address] * (ABNORMAL) Vitamin D, 25-Hydroxy, Total, Immunoassay (06/05/2023 11:53 AM EDT) Calcidiol+ercalc idiol 22(L) 30 - 100 ng/mL 06/05/2023 9:28 PM EDT [facility] Comment: Vitamin D Status 25-OH Vitamin D: Deficiency: <20 ng/mL Insufficiency: 20 - 29 ng/mL Optimal: > or = 30 ng/mL For 25-OH Vitamin D testing on patients on D2-supplementation and patients for whom quantitation of D2 and D3 fractions is required, the QuestAssureD(TM) 25-OH VIT D, (D2,D3), LC/MS/MS is recommended: order code [id number] (patients >2yrs). See Note 1 Note 1 For additional information, please refer to http://education.Viewpoint Construction Software/faq/IZO110 (This link is being provided for informational/ educational purposes only.) Blood Structure of peripheral vein / Unknown 06/05/2023 11:53 AM EDT 06/05/2023 7:56 PM EDT N[facility]ative [facility] - 06/09/2023 5:04 AM EDT FASTING:NO [facility] LAB BLOOD ORDERABLES Final Resul t Performing Organization Address City/[facility] Co de Phone Number [facility] [address] [place] [address], [place] [address], [place] [phone] [facility] [address] [address] * (ABNORMAL) PTH, Intact (without Calcium) (06/05/2023 11:53 AM EDT) Parathyroid Hormone, Intact 205(H) 16 - 77 pg/mL 06/06/2023 1:16 AM EDT [facility] Comment: Interpretive Guide Intact PTH [...] AMBULATORY - 06/09/2023 5:04 AM EDT FASTING:NO [facility] LAB BLOOD ORDERABLES Final Resul t Performing Organization Address [facility]/ZIP Co de Phone Number [facility] [address], [place] [address], [place] [phone] [facility] [address] [address] * (ABNORMAL) Renal Function Panel (06/05/2023 11:53 AM EDT) Glucose 89 65 - 139 mg/dL 06/05/2023 10:49 PM EDT [facility] Comment: Non-fasting reference interval BUN 39(H) 7 - 25 mg/dL 06/05/2023 10:49 PM EDT [facility] Creatinine 2.61(H) 0.50 - 1.03 mg/dL 06/05/2023 10:49 PM EDT [facility] eGFR 21(L) > OR = 60 mL/min/1. 73m2 06/05/2023 10:49 PM EDT [facility] Bun/Creatinine Ratio 15 6 - 22 (calc) 06/05/2023 10:49 PM EDT [facility] Sodium 137 135 - 146 mmol/L 06/05/2023 10:49 PM EDT [facility] Potassium 4.6 3.5 - 5.3 mmol/L 06/05/2023 10:49 PM EDT [facility] Chloride 111(H) 98 - 110 mmol/L 06/05/2023 10:49 PM EDT [facility] Carbon Dioxide 18(L) 20 - 32 mmol/L 06/05/2023 10:49 PM EDT [facility] Calcium 9.8 8.6 - 10.4 mg/dL 06/05/2023 10:49 PM EDT [facility] Phosphate 3.5 2.5 - 4.5 mg/dL 06/05/2023 10:49 PM EDT [facility] Albumin 4.0 3.6 - 5.1 g/dL 06/05/2023 10:49 PM EDT [facility] Blood Structure of peripheral vein / Unknown 06/05/2023 11:53 AM EDT 06/05/2023 7:56 PM EDT Narrative [facility] - 06/09/2023 5:04 AM EDT FASTING:NO us Anupama Bynum DO LAB BLOOD ORDERABLES Final Resul t [facility] [address] [facility] 3rd Floor, [place] [address], [facility] [address] [place] [address] from Last 3 Months or Most Recently Relevant to Health Maintenance Insurance * Guarantor: Aneta Gan Account Type Relation to Patient Date of Phone Billing Address Personal/Family Self 1965 [phone] (Work) [address] [place] [address] [facility] * Guarantor: Aneta Gan Account Type Relation to Patient Date of Phone Billing Address Transplant Self 1965 [phone] (Work) [address] [place] [address] [facility] Advance Directives Documents on File Type Date Recorded Patient Front End Driver Expl [facility] Care Proxy 12/25/2024 8:48 AM 12/11 Care Teams Plywood Scarfer Tender Relationship Specialty Start Date End Date Franklin Sanchez PA [address] [place] [address] PCP - General 06/05/23
--- OUTSIDE RECORDS SUMMARY | 2025-06-01 18:38 | XMS_ITS | Encounter Summary ---
Author Organization [facility] Address [address] [place] [address] Phone Care Team Providers Care Cotton Opener Name Role Phone Unavailable Primary Care Provider Unavailabl e Encounter Details Date Type Department Care Team (Late st Contact Info) Description 08/10/2022 Telephone [facility] [address] [place] [address] Roe Morrissey MD Social History [...] EDT) Calcium 9.1 8.4 - 10.2 mg/dL [place] 11/06/2022 4:20 PM EDT 11/06/2022 4:20 PM EDT Roe Morrissey MD LAB BLOOD ORDERABLES Final Res ult [place] * (ABNORMAL) Creatinine (11/06/2022 4:20 PM EDT) Creatinine Serum 2.59(H) 0.5 - 1.4 mg/dL [place] eGFR (Calc) 19 [facility] Comment: NOTE: For -Bhut[place] individuals, multiply the result by 1.210. Chronic Kidney Disease: Estimated GFR < 60 mL/min/1.73m2 Severe Kidney Disease: Estimated GFR < 15 mL/min/1.73m2 11/06/2022 4:20 PM EDT 11/06/2022 4:20 PM EDT Roe Morrissey MD LAB BLOOD ORDERABLES Final Res ult Performing Organization Address City/[facility]/ZIP Co de Phone Number [place] * (ABNORMAL) BUN (11/06/2022 4:20 PM EDT) BUN 44(H) 9 - 16 mg/dL [place] 11/06/2022 4:20 PM EDT 11/06/2022 4:20 PM [...]
--- OUTSIDE RECORDS SUMMARY | 2025-06-01 18:38 | XMS_ITS | Clinical Summary ---
Author Organization [facility] Address [address] [place] [address] Care Team Providers Care Mule Operator Name Role Phone Franklin Sanchez Primary [...] 75+ series) [address] [place] [phone] [facility] Care Teams Mule Operator Relationship Specialty Start Date End Date Franklin Sanchez PA [address] [place] [address] PCP - General Adult Health - PA/APNP/SUPERVISOR FIBER LOCKING/PHYSICIAN PRIMARY CARE SPORTS MEDICINE 07/20/21
--- OUTSIDE RECORDS SUMMARY | 2025-06-01 18:38 | XMS_ITS ---
Author Organization [facility] Address [address] [place] [address] Care Team Providers Care Skin Pass Operator Name Role Phone Franklin Sanchez Primary Care Provider [phone] Transplant Episode Kidney Candidate [facility] ([place], [place]) [facility] waitlisted on 02/18/2025 Marked as Inactive on 02/18/2025 Reason: Candidate Workup Incomplete Kidney CoordinatorZenobia Zepeda RN Email: N/A Scores Score Value Updated Exceptions/Reas ons CPRA 63 02/23/2025 EPTS (Calc) 28 06/01/2025 [place] Organ Diagnosis Organ Primary Contributory Kidney Systemic Lupus Erythematosus Mem branous Nephropathy Care Team Name Role Phone Fax Email Zenobia Zepeda RN Kidney Coordinator [phone] N/A Roe Morrissey Referring Physician [phone] N/A Events Pre-Transplant Referred: 10/23/2024 Evaluation began: 12/11/2024 Committee: 02/18/2025 Center waitlisted: 02/18/2025
== END 2025-06-01 15:36 | disposition home or self-care (01) ==
LOC: HO.HKA 15:23
PROVIDERS: PCP Physician Assistant; Visit Provider Internal Medicine Hypertension Specialist
DX: N18.4 Chronic kidney disease, stage 4 (severe) (principal); M32.14 Glomerular disease in systemic lupus erythematosus
CPT/HCPCS: 99214

== ENCOUNTER 2025-06-04 15:16 | Outpatient (AMB) | payer OTHER, MEDICAID, SELFPAY ==
[2025-06-04 15:23] LABS: Prothrombin Time Whole Bld POC 57.2 sec (11.1-13.5); ~PT, ~INR - Anti Coag Clinic 4.8 (0.9-1.1)
--- NOTE | 2025-06-04 15:33 | MHC.OFFVISCO ---
Intake Intake Visit Reasons: Anticoagulation Allergies rituximab (From Rituxan) Allergy (Severe, Verified 06/04/25 15:18) Anaphylaxis cephalexin (From Keflex) Allergy (Unknown, Verified 06/04/25 15:18) RED+ITCHY,RASH Cephalosporins (CEPHALOSPORINS) Allergy (Unknown, Verified 06/04/25 15:18) RED+ITCHY Sulfa (Sulfonamide Antibiotics) (SULFA(SULFONAMIDE ANTIBIOTICS)) Allergy (Unknown, Verified 06/04/25 15:18) RED+ITCHY mycophenolate mofetil (From CellCept) Adverse Reaction (Intermediate, Verified 06/04/25 15:18) rash cellcept Allergy (Severe, Uncoded 06/04/25 15:18) Hives retuxin Adverse Reaction (Severe, Uncoded 06/04/25 15:18) Abdominal Pain Medication List - Last Reconciled 06/04/25 by Joann Braden, RN atorvastatin 20 mg PO BEDTIME 30 days calcitriol 0.25 mcg PO DAILY clobetasol 0.05% 1 appl topical DAILY fluocinonide 0.05% appl topical gabapentin 200 mg PO DAILY PRN levothyroxine 100 mcg PO DAILY lisinopril 2.5 mg PO DAILY loratadine 10 mg PO DAILY PRN magnesium oxide 250 mg PO BID prednisone 2.5 mg PO DAILY sodium bicarbonate 650 mg PO BID warfarin 5 mg See Protocol PO DAILY Nursing Note INR: 4.8?out of therapeutic range of 2-3 Unable to determine reason for high INR other than diet Medications and supplements reviewed Patient status: feels well, no acute illness Medications or supplements: no changes Diet: usual diet for pt Denies any signs and symptoms of bleeding or clotting or unusual bruising Bleeding, bruising, clotting discussed Nutritional guidance given: to have a serving of greens today Dose: pt took today's dose of 2.5mg so will hold the next 2 doses. Pt will then resume usual dose of 2.5mg daily F/U INR Date: 1 week, 06/11/25?? Patient verbalizing understanding of instructions with read back given. Anti-Coag Initial Assessment Social Hx Patient Tobacco Use Status: Former Tobacco user Tobacco use type: Cigarette alcohol intake: former Alcohol intake frequency: does not drink Coding Level of Care Code Est Patient Level 1 Diagnoses Current use of anticoagulant therapy Z79.01 Results AMB INR Fingerstick AMB INR Fingerstick 4.8 Last Edit by Joann Braden, PRIYANK on 06/04/25 15:32 interface delay Assessment & Plan Assessment & Plan (1) Current use of anticoagulant therapy: Code(s): Z79.01 - termite exterminator (current) use of anticoagulants Category: Medical
--- OUTSIDE RECORDS SUMMARY | 2025-06-04 17:57 | XMS_ITS | Clinical Summary ---
Author Organization [facility] Address [address] [place] [address] Phone Care Team Providers Care Road Production General Manager Name Role Phone Unavailable Primary Care [...] 03/02/2016 Active ergocalciferol (VITAMIN D-2) 1.25 MG (52794 UT) capsule Take 1 capsule by mouth [...] Vaccine (#1) 2025 Insurance [facility] [place] [facility] [place]
--- OUTSIDE RECORDS SUMMARY | 2025-06-04 17:57 | XMS_ITS | Clinical Summary ---
Author Organization [facility] Address [address] [place] [address] Care Team Providers Care Defence Force Member Other Ranks Name Role Phone Franklin Sanchez Primary Care [...] 75+ series) [address] [place] [phone] [facility] Care Teams Defence [employer] Member Other Ranks Relationship Specialty Start Date End Date Franklin Sanchez PA [address] [place] [address] PCP - General Adult Health - PA/APNP/RAIL TRANSIT OPERATOR/PATIENT SERVICE SPECIALIST 07/20/21
--- OUTSIDE RECORDS SUMMARY | 2025-06-04 17:57 | XMS_ITS | Clinical Summary ---
Author Organization [facility] Address [address] [place] [address] Care Team Providers Care Mold Finisher Name Role Phone Franklin Sanchez Primary Care Provider [phone] Allergies Active Allergy Reactions Criticality Noted Date [...] propionate (FLONASE) 50 mcg/actuation nasal spray SMARTSI Mckenzie(s) Both Nares Twice Daily 5 Active sodium bicarbonate 650 mg tablet SMARTSI Tablet(s) By Mouth Twice Daily 5 Active predniSONE (DELTASONE) 2.5 mg tablet 5 Active Active Problems No known active problems Encounters Date Type Department Care Team Description 03/19/2025 Documentation [facility] Transplant Department [address] [place] [address] Delores Sepulveda LICSW from Last 3 Months [...] Info) Description 12/08/2025 8:20 AM EDT Follow-Up [facility] Renal Transplant [address] [place] [address] Franklin Flowers MD [address] [place] [address] 12/08/2025 9:00 AM EDT Social Work [facility] [address] [place] [address] Delores Sepulveda, OUTDOOR STUDIES DIRECTOR [address] [place] [address] Health Maintenance Due Date Last Done Comments [...] Completed 12/11/2024 Procedures * Due to [place] law, this organization might not be sharing [...] - 5.10 10*6/uL 12/11/2024 12:32 PM EDT [facility] Hemoglobin 10.4(L) 11.7 - 15.5 g/dL 12/11/2024 12:32 PM EDT [facility] Hematocrit 33.1(L) 35.0 - 45.0 % 12/11/2024 12:32 PM EDT [facility] MCV 94.0 80.0 - 100.0 fL 12/11/2024 12:32 PM EDT [facility] MCH 29.5 27.0 - 33.0 pg 12/11/2024 12:32 PM EDT [facility] MCHC 31.4(L) 32.0 - 36.0 g/dL 12/11/2024 12:32 PM EDT [facility] RDW 13.3 11.0 - 15.0 % 12/11/2024 12:32 PM EDT [facility] Platelets 289 140 - 400 10*3/uL 12/11/2024 12:32 PM EDT [facility] MPV 10.4 7.5 - 12.5 fL 12/11/2024 12:32 PM EDT [facility] Neutrophil % 58.9 % 12/11/2024 12:32 PM EDT [facility] Immature Grans % 0.5 0.0 - 0.9 % 12/11/2024 12:32 PM EDT [facility] Lymphocyte % 30.5 % 12/11/2024 12:32 PM EDT [facility] Monocyte % 5.8 % 12/11/2024 12:32 PM EDT [facility] Eosinophil % 3.8 % 12/11/2024 12:32 PM EDT [facility] Basophil % 0.5 % 12/11/2024 12:32 PM EDT [facility] Neutrophil # 3.86 1.50 - 7.80 10*3/uL 12/11/2024 12:32 PM EDT [facility] Immature Grans # 0.03 <=0.03 10*3/uL 12/11/2024 12:32 PM EDT [facility] Lymphocyte # 2.00 0.85 - 3.90 10*3/uL 12/11/2024 12:32 PM EDT [facility] Monocyte # 0.40 0.20 - 0.95 10*3/uL 12/11/2024 12:32 PM EDT [facility] Eosinophil # 0.30 0.02 - 0.50 10*3/uL 12/11/2024 12:32 PM EDT [employer] [facility] Basophil # <0.03 0.00 - 0.20 10*3/uL 12/11/2024 12:32 PM EDT [facility] nRBC % 0.0 /100 WBCs 12/11/2024 12:32 PM EDT [facility]ENTERProtonex Technology CorporationTX [facility] nRBC # <0.01 <0.01 10*3/uL 12/11/2024 12:32 PM EDT [facility] Blood Structure of peripheral vein / Unknown Venipuncture / Unknown 12/11/2024 12:08 PM EDT 12/11/2024 12:24 PM EDT us Franklin Flowers MD LAB BLOOD ORDERABLES [place] [facility] Result [facility] [address] [place] [address], * Hepatitis C Antibody w/Reflex to PCR (12/11/2024 12:08 PM EDT) Hepatitis C Antibody NON-REACT MARSHALL NON-REACT MARSHALL 12/12/2024 6:33 AM EDT [facility] Comment: HCV antibody was non-reactive. There is no laboratory evidence of HCV infection. In most cases, no further action is required. However, if recent HCV exposure is suspected, a test for HCV RNA (test code 72428) is suggested. For additional information please refer to http://Tapulous.ugichem/faq/CXB09o1 (This link is being provided for informational/ educational purposes only.) Blood Structure of peripheral vein / Unknown Venipuncture / Unknown 12/11/2024 12:08 PM EDT 12/11/2024 12:23 PM EDT Narrative [facility] 12/12/2024 6:33 AM EDT [facility] Received Date:[id number] Franklin Flowers MD LAB BLOOD ORDERABLES [place] l Result [facility] [address] [facility] [address] Floor, [place] [address], [place] [phone] [facility] [address], [place] [address], [place] [phone] * Phosphorus (12/11/2024 12:08 PM EDT) Phosphorus 3.4 2.5 - 4.5 mg/dL 12/11/2024 12:59 PM EDT [facility] Blood Structure of peripheral vein / Unknown Venipuncture / Unknown 12/11/2024 12:08 PM EDT 12/11/2024 12:26 PM EDT Franklin Flowers MD LAB BLOOD ORDERABLES [place] l Result [facility] [address] [place] [address], [place] * (ABNORMAL) Microalbumin, Random Urine with Creatinine (08/07/2023 9:01 AM EST) Creatinine, Random Urine 92 20 - 275 mg/dL 08/08/2023 6:45 PM EST [facility] Microalbumin 150.8 mg/dL 08/08/2023 6:45 PM EST [facility] Comment: Verified by repeat analysis. Reference Range Not established Microalbumin/Crea tinine Ratio, Random Urine 1,639(H) <30 mcg/mg creat 08/08/2023 6:45 PM EST [facility] Comment: The ADA defines abnormalities in [...] ORDERABLES Final Resul t [facility] [address], [place] [address], [facility] [address] [place] [address] * (ABNORMAL) Vitamin D, 25-Hydroxy, Total, Immunoassay (06/05/2023 11:53 AM EDT) Calcidiol+ercalc idiol 22(L) 30 - 100 ng/mL 06/05/2023 9:28 PM EDT [facility] Comment: Vitamin D Status 25-OH Vitamin D: Deficiency: <20 ng/mL Insufficiency: 20 - 29 ng/mL Optimal: > or = 30 ng/mL For 25-OH Vitamin D testing on patients on D2-supplementation and patients for whom quantitation of D2 and D3 fractions is required, the QuestAssureD(TM) 25-OH VIT D, (D2,D3), LC/MS/MS is recommended: order code 55357 (patients >2yrs). See Note 1 Note 1 For additional information, please refer to http://education.Done In :60 Seconds/faq/LDW744 (This link is being provided for informational/ educational purposes only.) Blood Structure of peripheral vein / Unknown 06/05/2023 11:53 AM EDT 06/05/2023 7:56 PM EDT Narrative [facility] - 06/09/2023 5:04 AM EDT FASTING:NO [facility] LAB BLOOD ORDERABLES Final Resul t Performing Organization Address City/[facility] Co de Phone Number [facility] [address] [place] [address], [place] [address], [place] [phone] [facility] [address] [address] * (ABNORMAL) PTH, Intact (without Calcium) (06/05/2023 11:53 AM EDT) Parathyroid Hormone, Intact 205(H) 16 - 77 pg/mL 06/06/2023 1:16 AM EDT [facility] Comment: Interpretive Guide Intact PTH Calcium ------- Normal Parathyroid Normal Normal Hypoparathyroidism Low or Low Normal Low Hyperparathyroidism Primary Normal or High High Secondary High Normal or Low Tertiary High High Non-Parathyroid Hypercalcemia Low or Low Normal High Blood Structure of peripheral vein / Unknown 06/05/2023 11:53 AM EDT 06/05/2023 11:02 PM EDT Narrative [facility] - 06/09/2023 5:04 AM EDT FASTING:NO [facility] LAB BLOOD ORDERABLES Final Resul t Performing Organization Address [facility]/ZIP Co de Phone Number [facility] [address], [place] [address], [place] [phone] [facility] [address] [address] * (ABNORMAL) Renal Function Panel (06/05/2023 11:53 AM EDT) Glucose 89 65 - 139 mg/dL 06/05/2023 10:49 PM EDT [facility] Comment: Non-fasting reference interval BUN 39(H) 7 - 25 mg/dL 06/05/2023 10:49 PM EDT [facility] Creatinine 2.61(H) 0.50 - 1.03 mg/dL 06/05/2023 10:49 PM EDT [facility] eGFR 21(L) > OR = 60 mL/min/1. 73m2 06/05/2023 10:49 PM EDT [facility] Bun/Creatinine Ratio 15 6 - 22 (calc) 06/05/2023 10:49 PM EDT [facility] Sodium 137 135 - 146 mmol/L 06/05/2023 10:49 PM EDT [facility] Potassium 4.6 3.5 - 5.3 mmol/L 06/05/2023 10:49 PM EDT [facility] Chloride 111(H) 98 - 110 mmol/L 06/05/2023 10:49 PM EDT [facility] Carbon Dioxide 18(L) 20 - 32 mmol/L 06/05/2023 10:49 PM EDT [facility] Calcium 9.8 8.6 - 10.4 mg/dL 06/05/2023 10:49 PM EDT [facility] Phosphate 3.5 2.5 - 4.5 mg/dL 06/05/2023 10:49 PM EDT [facility] Albumin 4.0 3.6 - 5.1 g/dL 06/05/2023 10:49 PM EDT [facility] Blood Structure of peripheral vein / Unknown 06/05/2023 11:53 AM EDT 06/05/2023 7:56 PM EDT Narrative [facility] - 06/09/2023 5:04 AM EDT FASTING:NO us Anupama Bynum DO LAB BLOOD ORDERABLES Final Resul t [facility] [address], [place] [address], [facility] [address] [place] [address] from Last 3 Months or Most Recently Relevant to Health Maintenance Insurance * Guarantor: Aneta Gan Account Type Relation to Patient Date of Phone Billing Address Personal/Family Self 1965 [phone] (Work) [address] [place] [phone] [facility] * Guarantor: Aneta Gan Account Type Relation to Patient Date of Phone Billing Address Transplant Self 1965 [phone] (Work) [address] [place] [address] [facility] Advance Directives Documents on File Type Date Recorded Patient Mechanical Lead Expl [facility] Care Proxy 12/25/2024 8:48 AM 12/11 Care Teams Mold Finisher Relationship Specialty Start Date End Date Franklin Sanchez PA [address] [place] [address] PCP - General 06/05/23
--- OUTSIDE RECORDS SUMMARY | 2025-06-04 17:57 | XMS_ITS | Encounter Summary ---
Author Organization [facility] Address [address] [place] [address] Phone Care Team Providers Care Printed Circuit Layout Taper Name Role Phone Unavailable Primary Care Provider Unavailabl e Encounter Details Date Type Department Care Team (Late st Contact Info) Description 08/10/2022 Telephone [facility] [address] [place] [address] Roe Morrissey MD Social History [...] Iris Gee - 08/10/2022 10:19 AM EST [facility] insurance verification called, pt will need a PA for her truxima infusion that is scheduled for tomorrow. [facility] documented in this encounter Plan of Treatment [...] EDT) Calcium 9.1 8.4 - 10.2 mg/dL [facility] 11/06/2022 4:20 PM EDT 11/06/2022 4:20 PM EDT Roe Morrissey MD LAB BLOOD ORDERABLES Final Res ult [place] * (ABNORMAL) Creatinine (11/06/2022 4:20 PM EDT) Creatinine Serum 2.59(H) 0.5 - 1.4 mg/dL [facility] eGFR (Calc) 19 [facility] Comment: NOTE: For -Nauruan individuals, multiply the result by 1.210. Chronic Kidney Disease: Estimated GFR < 60 mL/min/1.73m2 Severe Kidney Disease: Estimated GFR < 15 mL/min/1.73m2 11/06/2022 4:20 PM EDT 11/06/2022 4:20 PM EDT Roe Morrissey MD LAB BLOOD ORDERABLES Final Res ult Performing Organization Address City/[facility]/ZIP Co de Phone Number [place] * (ABNORMAL) BUN (11/06/2022 4:20 PM EDT) BUN 44(H) 9 - 16 mg/dL [facility] 11/06/2022 4:20 PM EDT 11/06/2022 4:20 PM [...]
--- OUTSIDE RECORDS SUMMARY | 2025-06-04 17:57 | XMS_ITS ---
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
== END 2025-06-04 15:43 | disposition home or self-care (01) ==
LOC: HO.ACS 15:16
PROVIDERS: PCP Physician Assistant; Visit Provider Internal Medicine Medical Oncology
DX: Z79.01 Long term (current) use of anticoagulants (principal)

== ENCOUNTER → 2025-06-04 15:16 | Outpatient (BNVA) | payer OTHER, MEDICAID, SELFPAY | PROVIDERS: PCP Physician Assistant; Visit Provider Internal Medicine Medical Oncology | DX: I26.99 Other pulmonary embolism without acute cor pulmonale (principal); Z79.01 Long term (current) use of anticoagulants; Z51.81 Encounter for therapeutic drug level monitoring | CPT/HCPCS: 85610; 99211 ==

== ENCOUNTER 2025-06-10 15:21 | Outpatient (AMB) | payer OTHER, MEDICAID, SELFPAY ==
[2025-06-10 15:27] LABS: Prothrombin Time Whole Bld POC 30.4 sec (11.1-13.5); ~PT, ~INR - Anti Coag Clinic 2.5 (0.9-1.1)
--- NOTE | 2025-06-10 15:32 | MHC.OFFVISCO ---
Intake Intake Visit Reasons: Anticoagulation Allergies rituximab (From Rituxan) Allergy (Severe, Verified 06/10/25 15:22) Anaphylaxis cephalexin (From Keflex) Allergy (Unknown, Verified 06/10/25 15:22) RED+ITCHY,RASH Cephalosporins (CEPHALOSPORINS) Allergy (Unknown, Verified 06/10/25 15:22) RED+ITCHY Sulfa (Sulfonamide Antibiotics) (SULFA(SULFONAMIDE ANTIBIOTICS)) Allergy (Unknown, Verified 06/10/25 15:22) RED+ITCHY mycophenolate mofetil (From CellCept) Adverse Reaction (Intermediate, Verified 06/10/25 15:22) rash cellcept Allergy (Severe, Uncoded 06/04/25 15:18) Hives retuxin Adverse Reaction (Severe, Uncoded 06/04/25 15:18) Abdominal Pain Medication List - Last Reconciled 06/10/25 by Stephanie Tran, RN atorvastatin 20 mg PO BEDTIME 30 days calcitriol 0.25 mcg PO DAILY clobetasol 0.05% 1 appl topical DAILY fluocinonide 0.05% appl topical gabapentin 200 mg PO DAILY PRN levothyroxine 100 mcg PO DAILY lisinopril 2.5 mg PO DAILY loratadine 10 mg PO DAILY PRN magnesium oxide 250 mg PO BID prednisone 2.5 mg PO DAILY sodium bicarbonate 650 mg PO BID warfarin 5 mg See Protocol PO DAILY Nursing Note NO CP,SOB,DIET/MED CHANGES,FALLS OR SX OF BLEEDING. CONTINUE PRESENT DOSING AND FOLLOW-UP IN 3 WEEKS GOOD UNDERSTANDING OF DOSING INSTR. 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
--- OUTSIDE RECORDS SUMMARY | 2025-06-10 18:18 | XMS_ITS | Clinical Summary ---
Author Organization [facility] Address [address] [place] [address] Care Team Providers Care Teacher Learning Disabled Name Role Phone rFanklin Sanchez Primary Care Provider [phone] Allergies Active Allergy Reactions Criticality Noted Date [...] propionate (FLONASE) 50 mcg/actuation nasal spray [facility] [place](s) Both Nares Twice Daily 5 Active sodium bicarbonate 650 mg tablet SMARTSI Tablet(s) By Mouth Twice Daily 5 Active predniSONE (DELTASONE) 2.5 mg tablet 5 Active Active Problems No known active problems Encounters Date Type Department Care Team Description 03/19/2025 Documentation [facility] Transplant Department [address] [place] [address] Delores Sepulveda LICSW from Last 3 Months [...] Info) Description 12/08/2025 8:20 AM EDT Follow-Up [facility] Renal Transplant [address] [place] [address] Franklin Flowers MD [address] [place] [address] 12/08/2025 9:00 AM EDT Social Work [facility] Renal Transplant [address] [place] [address] Delores Sepulveda, MEMS ENGINEER [address] [place] [address] Health Maintenance Due Date Last Done Comments [...] 12/11/2025 12/11/2024, 06/05/2023 Phosphorus 12/11/2025 12/11/2024, 06/05/2023 CKD: Referral to Nephrology Completed 12/11/2024 HIV Screening Completed 12/11/2024 Hepatitis C Screening Completed 12/11/2024 Procedures * Due to [place] [employer] law, this organization might not be sharing [...] to Health Maintenance Results * Due to [place] state law, this organization might not be sharing negative HIV tests. * (ABNORMAL) CBC Auto Differential (12/11/2024 12:08 PM EDT) WBC 6.6 3.8 - 10.8 10*3/uL 12/11/2024 12:32 PM EDT [facility] RBC 3.52(L) 3.80 - 5.10 10*6/uL 12/11/2024 12:32 PM EDT [facility] Hemoglobin 10.4(L) 11.7 - 15.5 g/dL 12/11/2024 12:32 PM EDT [facility] Hematocrit 33.1(L) 35.0 - 45.0 % 12/11/2024 12:32 PM EDT [facility] MCV 94.0 80.0 - 100.0 fL 12/11/2024 12:32 PM EDT [facility] MCH 29.5 27.0 - 33.0 pg 12/11/2024 12:32 PM EDT [facility] MCHC 31.4(L) 32.0 - 36.0 g/dL 12/11/2024 12:32 PM EDT [facility] RDW 13.3 11.0 - 15.0 % 12/11/2024 12:32 PM EDT [facility] Platelets 289 140 - 400 10*3/uL 12/11/2024 12:32 PM EDT [facility] MPV 10.4 7.5 - 12.5 fL 12/11/2024 12:32 PM EDT [facility] Neutrophil % 58.9 % 12/11/2024 12:32 PM EDT [facility] Immature Grans % 0.5 0.0 - 0.9 % 12/11/2024 12:32 PM EDT [facility] Lymphocyte % 30.5 % 12/11/2024 12:32 PM EDT [facility] Monocyte % 5.8 % 12/11/2024 12:32 PM EDT [facility] Eosinophil % 3.8 % 12/11/2024 12:32 PM EDT [facility] Basophil % 0.5 % 12/11/2024 12:32 PM EDT [facility] Neutrophil # 3.86 1.50 - 7.80 10*3/uL 12/11/2024 12:32 PM EDT [facility] [employer] [facility] Immature Grans # 0.03 <=0.03 10*3/uL 12/11/2024 12:32 PM EDT [facility] [employer] [facility] Lymphocyte # 2.00 0.85 - 3.90 10*3/uL 12/11/2024 12:32 PM EDT [facility] [employer] [facility] Monocyte # 0.40 0.20 - 0.95 10*3/uL 12/11/2024 12:32 PM EDT [facility] [employer] [facility] Eosinophil # 0.30 0.02 - 0.50 10*3/uL 12/11/2024 12:32 PM EDT [facility] [employer] [facility] Basophil # <0.03 0.00 - 0.20 10*3/uL 12/11/2024 12:32 PM EDT [facility] [employer] [facility] nRBC % 0.0 /100 WBCs 12/11/2024 12:32 PM EDT [facility] [employer] [facility] nRBC # <0.01 <0.01 10*3/uL 12/11/2024 12:32 PM EDT [facility] [employer] [facility] Blood Structure of peripheral vein / Unknown Venipuncture / Unknown 12/11/2024 12:08 PM EDT 12/11/2024 12:24 PM EDT us Franklin Flowers MD LAB BLOOD ORDERABLES [place] bartholomew Result [facility] [employer] [facility] [address] [place] [address], * Hepatitis C Antibody w/Reflex to PCR (12/11/2024 12:08 PM EDT) Hepatitis C Antibody NON-REACT MARSHALL NON-REACT MARSHALL 12/12/2024 6:33 AM EDT [facility] Comment: HCV antibody was non-reactive. There is no laboratory evidence of HCV infection. In most cases, no further action is required. However, if recent HCV exposure is suspected, a test for HCV RNA (test code 94081) is suggested. For additional information please refer to http://Project [email or web address]/faq/XKI04d3 (This link is being provided for informational/ educational purposes only.) Blood Structure of peripheral vein / Unknown Venipuncture / Unknown 12/11/2024 12:08 PM EDT 12/11/2024 12:23 PM EDT [facility]ative [facility] 12/12/2024 6:33 AM EDT [facility] Received Date: Franklin Flowers MD LAB BLOOD ORDERABLES [place] l Result Performing Organization Address City/[facility]/ZIP Co de Phone Number [facility] [address], [place] [address], [place] [phone] [facility] [address] [facility] [address] [facility], [place] [address], [place] [phone] * Phosphorus (12/11/2024 12:08 PM EDT) Phosphorus 3.4 2.5 - 4.5 mg/dL 12/11/2024 12:59 PM EDT [facility] Blood Structure of peripheral vein / Unknown Venipuncture / Unknown 12/11/2024 12:08 PM EDT 12/11/2024 12:26 PM EDT Franklin Flowers MD LAB BLOOD ORDERABLES [place] l Result [facility] [address] [place] [phone], * (ABNORMAL) Microalbumin, Random Urine with Creatinine (08/07/2023 9:01 AM EST) Creatinine, Random Urine 92 20 - 275 mg/dL 08/08/2023 6:45 PM EST [facility] Microalbumin 150.8 mg/dL 08/08/2023 6:45 PM EST [facility] Comment: Verified by repeat analysis. Reference Range Not established Microalbumin/Crea tinine Ratio, Random Urine 1,639(H) <30 mcg/mg creat 08/08/2023 6:45 PM EST [facility] Comment: The ADA defines abnormalities in albumin [...] ORDERABLES Final Resul t [facility] [address] [facility] [address], [place] [address], [facility] [address] [place] [address] * (ABNORMAL) Vitamin D, 25-Hydroxy, Total, Immunoassay (06/05/2023 11:53 AM EDT) Calcidiol+ercalc idiol 22(L) 30 - 100 ng/mL 06/05/2023 9:28 PM EDT [facility] Comment: Vitamin D Status 25-OH Vitamin D: Deficiency: <20 ng/mL Insufficiency: 20 - 29 ng/mL Optimal: > or = 30 ng/mL For 25-OH Vitamin D testing on patients on D2-supplementation and patients for whom quantitation of D2 and D3 fractions is required, the QuestAssureD(TM) 25-OH VIT D, (D2,D3), LC/MS/MS is recommended: order code 75862 (patients >2yrs). See Note 1 Note 1 For additional information, please refer to http://education.[employer]/faq/SGP506 (This link is being provided for informational/ educational purposes only.) Blood Structure of peripheral vein / Unknown 06/05/2023 11:53 AM EDT 06/05/2023 7:56 PM EDT Narrative [facility] - 06/09/2023 5:04 AM EDT FASTING:NO [employer] [facility] LAB BLOOD ORDERABLES Final Resul t Performing Organization Address City/[facility]/ZIP Co de Phone Number [facility] [address], [place] [address], [place] [phone] [facility] [address] [address] * (ABNORMAL) PTH, Intact (without Calcium) (06/05/2023 11:53 AM EDT) Parathyroid Hormone, Intact 205(H) 16 - 77 pg/mL 06/06/2023 1:16 AM EDT [facility] Comment: Interpretive Guide Intact PTH Calcium [...] - 06/09/2023 5:04 AM EDT FASTING:NO Anupama [facility] LAB BLOOD ORDERABLES Final Resul t Performing Organization Address City[facility]/ZIP Co de Phone Number [facility] [address], [place] [address], [place] [phone] [facility] [address] [address] * (ABNORMAL) Renal Function Panel (06/05/2023 11:53 AM EDT) Glucose 89 65 - 139 mg/dL 06/05/2023 10:49 PM EDT [facility] Comment: Non-fasting reference interval BUN 39(H) 7 - 25 mg/dL 06/05/2023 10:49 PM EDT [facility] Creatinine 2.61(H) 0.50 - 1.03 mg/dL 06/05/2023 10:49 PM EDT [facility] eGFR 21(L) > OR = 60 mL/min/1. 73m2 06/05/2023 10:49 PM EDT [facility] Bun/Creatinine Ratio 15 6 - 22 (calc) 06/05/2023 10:49 PM EDT [facility] Sodium 137 135 - 146 mmol/L 06/05/2023 10:49 PM EDT [facility] Potassium 4.6 3.5 - 5.3 mmol/L 06/05/2023 10:49 PM EDT [facility] Chloride 111(H) 98 - 110 mmol/L 06/05/2023 10:49 PM EDT [facility] Carbon Dioxide 18(L) 20 - 32 mmol/L 06/05/2023 10:49 PM EDT [facility] Calcium 9.8 8.6 - 10.4 mg/dL 06/05/2023 10:49 PM EDT [facility] Phosphate 3.5 2.5 - 4.5 mg/dL 06/05/2023 10:49 PM EDT [facility] Albumin 4.0 3.6 - 5.1 g/dL 06/05/2023 10:49 PM EDT [facility] Blood Structure of peripheral vein / Unknown 06/05/2023 11:53 AM EDT 06/05/2023 7:56 PM EDT Narrative [facility] - 06/09/2023 5:04 AM EDT FASTING:NO us Anupama Bynum DO LAB BLOOD ORDERABLES Final Resul t [facility] [address] [facility] [address], [place] [address], [facility] [address] [place] [address] from Last 3 Months or Most Recently Relevant to Health Maintenance Insurance * Guarantor: Aneta Gan Account Type Relation to Patient Date of Phone Billing Address Personal/Family Self 1965 [phone] (Work) [address] [place] [address] [facility] * Guarantor: Aneta Gan Account Type Relation to Patient Date of Phone Billing Address Transplant Self 1965 [phone] (Work) [address] [place] [address] [facility] Advance Directives Documents on File Type Date Recorded Patient Clinical Rehab Specialist [facility] Proxy 12/25/2024 8:48 AM 12/11 Care Teams Teacher Learning Disabled Relationship Specialty Start Date End Date Franklin Sanchez PA [address] [place] [id number] PCP - General 06/05/23
--- OUTSIDE RECORDS SUMMARY | 2025-06-10 18:18 | XMS_ITS ---
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
== END 2025-06-10 15:33 | disposition home or self-care (01) ==
LOC: HO.ACS 15:21
PROVIDERS: PCP Physician Assistant; Visit Provider Internal Medicine Medical Oncology
DX: Z79.01 Long term (current) use of anticoagulants (principal)

== ENCOUNTER → 2025-06-10 15:21 | Outpatient (BNVA) | payer OTHER, MEDICAID, SELFPAY | PROVIDERS: PCP Physician Assistant; Visit Provider Internal Medicine Medical Oncology | DX: Z79.01 Long term (current) use of anticoagulants (principal) | CPT/HCPCS: 85610; 99211 ==

== ENCOUNTER 2025-07-06 15:23 | Outpatient (AMB) | payer OTHER, MEDICAID, SELFPAY ==
[2025-07-06 15:33] LABS: Prothrombin Time Whole Bld POC 30.1 sec (11.1-13.5); ~PT, ~INR - Anti Coag Clinic 2.5 (0.9-1.1)
--- NOTE | 2025-07-06 15:44 | MHC.OFFVISCO ---
Intake Intake Visit Reasons: Anticoagulation Allergies rituximab (From Rituxan) Allergy (Severe, Verified 07/06/25 15:26) Anaphylaxis cephalexin (From Keflex) Allergy (Unknown, Verified 07/06/25 15:26) RED+ITCHY,RASH Cephalosporins (CEPHALOSPORINS) Allergy (Unknown, Verified 07/06/25 15:26) RED+ITCHY Sulfa (Sulfonamide Antibiotics) (SULFA(SULFONAMIDE ANTIBIOTICS)) Allergy (Unknown, Verified 07/06/25 15:26) RED+ITCHY mycophenolate mofetil (From CellCept) Adverse Reaction (Intermediate, Verified 07/06/25 15:26) rash cellcept Allergy (Severe, Uncoded 07/06/25 15:26) Hives retuxin Adverse Reaction (Severe, Uncoded 07/06/25 15:26) Abdominal Pain Medication List - Last Reconciled 07/06/25 by Jessica Leary RN atorvastatin 20 mg PO BEDTIME 30 days calcitriol 0.25 mcg PO DAILY clobetasol 0.05% 1 appl topical DAILY fluocinonide 0.05% appl topical gabapentin 200 mg (2 x 100 mg) PO DAILY PRN 90 days levothyroxine 100 mcg PO DAILY lisinopril 2.5 mg PO DAILY loratadine 10 mg PO DAILY PRN magnesium oxide 250 mg PO BID prednisone 2.5 mg PO DAILY sodium bicarbonate 650 mg PO BID warfarin 5 mg See Protocol PO DAILY Nursing Note INR: 2.5 in therapeutic range Medications and supplements reviewed * Going on vacation next week, after return chk INR 07/22/25 * Planning for 8 dental extractions - 07/27/25 - she will call with name of dentist *She will most likely require INR either in low end of range or just below 2.0 - with possible lovenox bridge - will wait to have dentist name for further planning and msg to PCP Denies any signs and symptoms of bleeding or bruising or clotting. Bleeding, bruising, clotting discussed Nutritional guidance given - eat a mix of fruits and vegetables on your diet plan you can have to keep INR in range Dose: 5mg Tuesdays/ 2.5mg x 6 days 6 days F/U INR: 07/22/25 after she returns from vacation and 5 day prior extractions Patient verbalizes understanding of instructions given Anti-Coag Initial Assessment Social Hx Patient Tobacco Use Status: Former Tobacco user Tobacco use type: Cigarette alcohol intake: former Alcohol intake frequency: does not drink Coding Level of Care Code Est Patient Level 1 Diagnoses Current use of anticoagulant therapy Z79.01 Assessment & Plan Assessment & Plan (1) Current use of anticoagulant therapy: Code(s): 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
--- OUTSIDE RECORDS SUMMARY | 2025-07-06 18:24 | XMS_ITS ---
Author Organization [facility] Address [address] [place] [address] Care Team Providers Care Trauma Coordinator Name Role Phone Franklin Sanchez Primary Care Provider [phone] Transplant Episode Kidney Candidate 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
--- OUTSIDE RECORDS SUMMARY | 2025-07-06 18:24 | XMS_ITS | Clinical Summary ---
Author Organization [facility] Address [address] [place] [address] Care Team Providers Care Emergency Vehicle Operations Instructor Name Role Phone Franklin Sanchez Primary Care Provider [phone] Allergies Active Allergy Reactions Criticality Noted Date [...] propionate (FLONASE) 50 mcg/actuation nasal spray [employer] [place](s) Both Nares Twice Daily 5 Active sodium [...] Follow-Up [facility] Transplant [address] [place] [address] Franklin Flowers MD [address] [place] [address] 12/08/2025 9:00 AM EDT Social Work [facility] Renal Transplant [address] [place] [address] Derick Delores, MATERIALS HANDLING COORDINATOR [address] [place] [address] Health Maintenance Due Date Last Done Comments [...] 2025 , 07/12/2022, 06/11/2019, Additional history exists COVID-19 Vaccine ( - 2024-2 6 season) 2025 10/28/2021, 10/14/2020, 09/16/2020 Hemoglobin 12/11/2025 12/11/2024, 06/05/2023 Phosphorus 12/11/2025 12/11/2024, 06/05/2023 CKD: Referral to Nephrology Completed 12/11/2024 HIV Screening Completed 12/11/2024 Hepatitis C Screening Completed 12/11/2024 Procedures * Due to [place] state law, this organization might not be [...] to Health Maintenance Results * Due to [place] state law, this organization might not be sharing negative HIV tests. * (ABNORMAL) CBC Auto Differential (12/11/2024 12:08 PM EDT) WBC 6.6 3.8 - 10.8 10*3/uL 12/11/2024 12:32 PM EDT [facility] RBC 3.52(L) 3.80 - 5.10 10*6/uL 12/11/2024 12:32 PM EDT [facility] Hemoglobin 10.4(L) 11.7 - 15.5 g/dL 12/11/2024 12:32 PM EDT [facility] Hematocrit 33.1(L) 35.0 - 45.0 % 12/11/2024 12:32 PM EDT [facility] MCV 94.0 80.0 - 100.0 fL 12/11/2024 12:32 PM EDT [facility] MCH 29.5 27.0 - 33.0 pg 12/11/2024 12:32 PM EDT [facility] MCHC 31.4(L) 32.0 - 36.0 g/dL 12/11/2024 12:32 PM EDT [facility] RDW 13.3 11.0 - 15.0 % 12/11/2024 12:32 PM EDT [facility] Platelets 289 140 - 400 10*3/uL 12/11/2024 12:32 PM EDT [facility] MPV 10.4 7.5 - 12.5 fL 12/11/2024 12:32 PM EDT [facility] Neutrophil % 58.9 % 12/11/2024 12:32 PM EDT [facility] Immature Grans % 0.5 0.0 - 0.9 % 12/11/2024 12:32 PM EDT [facility] Lymphocyte % 30.5 % 12/11/2024 12:32 PM EDT [facility] Monocyte % 5.8 % 12/11/2024 12:32 PM EDT [facility] Eosinophil % 3.8 % 12/11/2024 12:32 PM EDT [facility] Basophil % 0.5 % 12/11/2024 12:32 PM EDT [facility] Neutrophil # 3.86 1.50 - 7.80 10*3/uL 12/11/2024 12:32 PM EDT [facility] Immature Grans # 0.03 <=0.03 10*3/uL 12/11/2024 12:32 PM EDT [facility] Lymphocyte # 2.00 0.85 - 3.90 10*3/uL 12/11/2024 12:32 PM EDT [facility] [facility] Monocyte # 0.40 0.20 - 0.95 10*3/uL 12/11/2024 12:32 PM EDT [facility] Eosinophil # 0.30 0.02 - 0.50 10*3/uL 12/11/2024 12:32 PM EDT [facility] [employer] Basophil # <0.03 0.00 - 0.20 10*3/uL 12/11/2024 12:32 PM EDT [facility] nRBC % 0.0 /100 WBCs 12/11/2024 12:32 PM EDT [facility] nRBC # <0.01 <0.01 10*3/uL 12/11/2024 12:32 PM EDT [facility] [employer] [facility] Blood Structure of peripheral vein / Unknown Venipuncture / Unknown 12/11/2024 12:08 PM EDT 12/11/2024 12:24 PM EDT Franklin Flowers MD LAB BLOOD ORDERABLES [place] bartholomew Result [facility] [employer] [facility] [address] [place] [address], * Hepatitis C Antibody w/Reflex to PCR (12/11/2024 12:08 PM EDT) Hepatitis C Antibody NON-REACT MARSHALL NON-REACT MARSHALL 12/12/2024 6:33 AM EDT [facility] Comment: HCV antibody was non-reactive. There is no laboratory evidence of HCV infection. In most cases, no further action is required. However, if recent HCV exposure is suspected, a test for HCV RNA (test code 01557) is suggested. For additional information please refer to http://education.HALKAR/faq/XIU64f8 (This link is being provided for informational/ educational purposes only.) Blood Structure of peripheral vein / Unknown Venipuncture / Unknown 12/11/2024 12:08 PM EDT 12/11/2024 12:23 PM EDT Narrative [facility] - 12/12/2024 6:33 AM EDT [facility] Received Date: Franklin Flowers MD LAB BLOOD ORDERABLES [place] l Result Performing Organization Address City/[facility]/ZIP Co de Phone Number [facility] [address], [place] [address], [email or web address] [facility] [address] [facility] [address], [place] [address], * Phosphorus (12/11/2024 12:08 PM EDT) Pathologist [facility] Phosphorus 3.4 2.5 - 4.5 mg/dL 12/11/2024 12:59 PM EDT [facility] Blood Structure of peripheral vein / Unknown Venipuncture / Unknown 12/11/2024 12:08 PM EDT 12/11/2024 12:26 PM EDT Franklin Flowers MD LAB BLOOD ORDERABLES [place] l Result [facility] [address] [place] [address], [place] * (ABNORMAL) Microalbumin, Random Urine with Creatinine (08/07/2023 9:01 AM EST) Creatinine, Random Urine 92 20 - 275 mg/dL 08/08/2023 6:45 PM EST [email or web address] [facility] Microalbumin 150.8 mg/dL 08/08/2023 6:45 PM EST [email or web address] [facility] Comment: Verified by repeat analysis. Reference Range Not established Microalbumin/Crea tinine Ratio, Random Urine 1,639(H) <30 mcg/mg creat 08/08/2023 6:45 PM EST [employer] Comment: The ADA defines abnormalities in albumin [...] DO LAB URINE ORDERABLES Final Resul t [employer] [address] [facility] [address], [place] [address], [place] [phone] [employer] [facility] [address] [place] [address] * (ABNORMAL) Vitamin D, 25-Hydroxy, Total, Immunoassay (06/05/2023 11:53 AM EDT) Calcidiol+ercalc idiol 22(L) 30 - 100 ng/mL 06/05/2023 9:28 PM EDT [facility] [employer] [employer] Comment: Vitamin D Status 25-OH Vitamin D: Deficiency: <20 ng/mL Insufficiency: 20 - 29 ng/mL Optimal: > or = 30 ng/mL For 25-OH Vitamin D testing on patients on D2-supplementation and patients for whom quantitation of D2 and D3 fractions is required, the QuestAssureD(TM) 25-OH VIT D, (D2,D3), LC/MS/MS is recommended: order code 79074 (patients >2yrs). See Note 1 Note 1 For additional information, please refer to http://education.[employer]/faq/WHR679 (This link is being provided for informational/ educational purposes only.) Blood Structure of peripheral vein / Unknown 06/05/2023 11:53 AM EDT 06/05/2023 7:56 PM EDT Narrative [facility] - 06/09/2023 5:04 AM EDT FASTING:NO Anupama [employer]anna DO LAB BLOOD ORDERABLES Final Resul t Performing Organization Address City/[facility]/ZIP Co de Phone Number [facility] [address], [facility] [place] [address], [place] [phone] [email or web address] [address] [address] * (ABNORMAL) PTH, Intact (without Calcium) (06/05/2023 11:53 AM EDT) Parathyroid Hormone, Intact 205(H) 16 - 77 pg/mL 06/06/2023 1:16 AM EDT [email or web address] [facility] Comment: Interpretive Guide Intact PTH Calcium [...] - 06/09/2023 5:04 AM EDT FASTING:NO Anupama [employer]anna DO LAB BLOOD ORDERABLES Final Resul t Performing Organization Address [facility] Co de Phone Number [facility] [address], [facility] [place] [address], [place] [phone] [email or web address] [address] [address] * (ABNORMAL) Renal Function Panel (06/05/2023 11:53 AM EDT) Glucose 89 65 - 139 mg/dL 06/05/2023 10:49 PM EDT [email or web address] [facility] Comment: Non-fasting reference interval BUN 39(H) 7 - 25 mg/dL 06/05/2023 10:49 PM EDT [email or web address] [facility] Creatinine 2.61(H) 0.50 - 1.03 mg/dL 06/05/2023 10:49 PM EDT [email or web address] [facility] eGFR 21(L) > OR = 60 mL/min/1. 73m2 06/05/2023 10:49 PM EDT [email or web address] [facility] Bun/Creatinine Ratio 15 6 - 22 (calc) 06/05/2023 10:49 PM EDT [email or web address] [facility] Sodium 137 135 - 146 mmol/L 06/05/2023 10:49 PM EDT [email or web address] [facility] Potassium 4.6 3.5 - 5.3 mmol/L 06/05/2023 10:49 PM EDT [email or web address] [facility] Chloride 111(H) 98 - 110 mmol/L 06/05/2023 10:49 PM EDT [email or web address] [facility] Carbon Dioxide 18(L) 20 - 32 mmol/L 06/05/2023 10:49 PM EDT [email or web address] [facility] Calcium 9.8 8.6 - 10.4 mg/dL 06/05/2023 10:49 PM EDT [email or web address] [facility] Phosphate 3.5 2.5 - 4.5 mg/dL 06/05/2023 10:49 PM EDT [email or web address] [facility] Albumin 4.0 3.6 - 5.1 g/dL 06/05/2023 10:49 PM EDT [email or web address] [facility] Blood Structure of peripheral vein / Unknown 06/05/2023 11:53 AM EDT 06/05/2023 7:56 PM EDT Narrative [facility] - 06/09/2023 5:04 AM EDT FASTING:NO us Anupama Bynum DO LAB BLOOD ORDERABLES Final Resul t [facility] [address] [facility] [address], [place] [address], [place] [phone] [email or web address] [facility] [address] [place] [address] from Last 3 Months or Most Recently Relevant to Health Maintenance Insurance * Guarantor: Aneta Gan Account Type Relation to Patient Date of Phone Billing Address Personal/Family Self 1965 [phone] (Work) [address] [place] [address] [facility] * Guarantor: Aneta Gan Account Type Relation to Patient Date of Phone Billing Address Transplant Self 1965 [phone] (Work) [address] [place] [address] [facility] Advance Directives Documents on File Type Date Recorded Patient Group Work Program Aide Expl [facility] Health Care Proxy 12/25/2024 8:48 AM 12/11 Care Teams Emergency Vehicle Operations Instructor Relationship Specialty Start Date End Date Franklin Sanchez PA [address] [place] [id number] PCP - General 06/05/23
== END 2025-07-06 15:55 | disposition home or self-care (01) ==
LOC: HO.ACS 15:23
PROVIDERS: PCP Physician Assistant; Visit Provider Internal Medicine Medical Oncology
DX: Z79.01 Long term (current) use of anticoagulants (principal)

== ENCOUNTER → 2025-07-06 15:23 | Outpatient (BNVA) | payer OTHER, MEDICAID, SELFPAY | PROVIDERS: PCP Physician Assistant; Visit Provider Internal Medicine Medical Oncology | DX: I26.99 Other pulmonary embolism without acute cor pulmonale (principal); Z51.81 Encounter for therapeutic drug level monitoring; Z79.01 Long term (current) use of anticoagulants | CPT/HCPCS: 85610; 99211 ==

== ENCOUNTER 2025-07-22 13:49 | Outpatient (AMB) | payer OTHER, MEDICAID, SELFPAY ==
--- NOTE | 2025-07-22 14:03 | MHC.OFFVISCO ---
Intake Intake Visit Reasons: Anticoagulation Allergies rituximab (From Rituxan) Allergy (Severe, Verified 07/22/25 13:59) Anaphylaxis cephalexin (From Keflex) Allergy (Unknown, Verified 07/22/25 13:59) RED+ITCHY,RASH Cephalosporins (CEPHALOSPORINS) Allergy (Unknown, Verified 07/22/25 13:59) RED+ITCHY Sulfa (Sulfonamide Antibiotics) (SULFA(SULFONAMIDE ANTIBIOTICS)) Allergy (Unknown, Verified 07/22/25 13:59) RED+ITCHY mycophenolate mofetil (From CellCept) Adverse Reaction (Intermediate, Verified 07/22/25 13:59) rash cellcept Allergy (Severe, Uncoded 07/22/25 13:59) Hives retuxin Adverse Reaction (Severe, Uncoded 07/22/25 13:59) Abdominal Pain Medication List - Last Reconciled 07/22/25 by Shana Allen RN atorvastatin 20 mg PO BEDTIME 30 days calcitriol 0.25 mcg PO DAILY clobetasol 0.05% 1 appl topical DAILY fluocinonide 0.05% appl topical gabapentin 200 mg (2 x 100 mg) PO DAILY PRN 90 days levothyroxine 100 mcg PO DAILY lisinopril 2.5 mg PO DAILY loratadine 10 mg PO DAILY PRN magnesium oxide 250 mg PO BID prednisone 2.5 mg PO DAILY sodium bicarbonate 650 mg PO BID warfarin 5 mg See Protocol PO DAILY Nursing Note INR 3.3-?? out of therapeutic range of 2-3 Medications and supplements reviewed Patient status: pt to have 8 dental extractions on sun07/27/25, no hold of warfarin per dentist. he wants inr less than 2.5 Medications or supplements: no changes Diet: appetite same, has had more fruits Denies any signs and symptoms of bleeding or clotting or unusual bruising Bleeding, bruising, clotting discussed Nutritional guidance given: have a green today Dose: hold 2.5mg today then take 2.5mg daily til sunday F/U INR Date : 07/27/25? Patient verbalizing understanding of instructions given. Anti-Coag Initial Assessment Social Hx Patient Tobacco Use Status: Former Tobacco user Tobacco use type: Cigarette alcohol intake: former Alcohol intake frequency: does not drink Coding Level of Care Code Est Patient Level 1 Diagnoses Current use of anticoagulant therapy Z79.01 Assessment & Plan Assessment & Plan (1) Current use of anticoagulant therapy: Code(s): Z79.01 - skilled nursing (current) use of anticoagulants Category: Medical
[2025-07-22 14:04] LABS: Prothrombin Time Whole Bld POC 39.6 sec (11.1-13.5); ~PT, ~INR - Anti Coag Clinic 3.3 (0.9-1.1)
--- OUTSIDE RECORDS SUMMARY | 2025-07-22 18:24 | XMS_ITS ---
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
--- OUTSIDE RECORDS SUMMARY | 2025-07-22 18:24 | XMS_ITS | Clinical Summary ---
Author Organization [facility] Address [address] [place] [address] Care Team Providers Care Motion Picture Camera Operator Name Role Phone Franklin Sanchez Primary Care Provider [phone] Allergies Active Allergy Reactions Criticality Noted Date [...] propionate (FLONASE) 50 mcg/actuation nasal spray SMARTSI [place](s) Both Nares Twice Daily 5 Active sodium [...] Info) Description 12/08/2025 8:20 AM EDT Follow-Up [facility] Renal Transplant [address] [place] [address] Franklin Flowers MD [address] [place] [address] 12/08/2025 9:00 AM EDT Social Work [facility] Renal Transplant [address] [place] [address] DerickDelores, CLINIC LEAD [address] [place] [address] Health Maintenance Due Date Last Done Comments CKD: Referral to Nutrition 1965 Cologuard 1965 Colon Cancer Screening 1965 Colonoscopy 1965 FOBT / Fit Test 1965 Sigmoidoscopy 1965 Mammogram 2005 Zoster Vaccines (1 of 2) [...] 06/11/2019, Additional history exists COVID-19 Vaccine ( season) 2025 10/28/2021, 10/14/2020, 09/16/2020 Hemoglobin 12/11/2025 12/11/2024, 06/05/2023 Phosphorus 12/11/2025 12/11/2024, 06/05/2023 RSV Vaccine (60+ years old and patients) (1 - 1-dose 75+ series) 2040 CKD: Referral to Nephrology Completed 12/11/2024 HIV Screening Completed 12/11/2024 Hepatitis C Screening Completed 12/11/2024 Hepatitis B Vaccines Aged Out No long er eligible based on patient's age to complete this topic Procedures * Due to [place] [employer] law, this organization might not be sharing [...] Maintenance Results * Due to [place] [employer] law, this organization might not be sharing negative HIV tests. * (ABNORMAL) CBC Auto Differential (12/11/2024 12:08 PM EDT) WBC 6.6 3.8 - 10.8 10*3/uL 12/11/2024 12:32 PM EDT [facility] RBC 3.52(L) 3.80 - 5.10 10*6/uL 12/11/2024 12:32 PM EDT [facility] Hemoglobin 10.4(L) 11.7 - 15.5 g/dL 12/11/2024 12:32 PM EDT [facility] Hematocrit 33.1(L) 35.0 - 45.0 % 12/11/2024 12:32 PM EDT [facility] MCV 94.0 80.0 - 100.0 fL 12/11/2024 12:32 PM EDT [facility] MCH 29.5 27.0 - 33.0 pg 12/11/2024 12:32 PM EDT [facility] MCHC 31.4(L) 32.0 - 36.0 g/dL 12/11/2024 12:32 PM EDT [facility] RDW 13.3 11.0 - 15.0 % 12/11/2024 12:32 PM EDT [facility] Platelets 289 140 - 400 10*3/uL 12/11/2024 12:32 PM EDT [facility] MPV 10.4 7.5 - 12.5 fL 12/11/2024 12:32 PM EDT [facility] Neutrophil % 58.9 % 12/11/2024 12:32 PM EDT [facility] Immature Grans % 0.5 0.0 - 0.9 % 12/11/2024 12:32 PM EDT [facility] Lymphocyte % 30.5 % 12/11/2024 12:32 PM EDT [facility] Monocyte % 5.8 % 12/11/2024 12:32 PM EDT [facility] Eosinophil % 3.8 % 12/11/2024 12:32 PM EDT [facility] Basophil % 0.5 % 12/11/2024 12:32 PM EDT [facility] Neutrophil # 3.86 1.50 - 7.80 10*3/uL 12/11/2024 12:32 PM EDT [facility] Immature Grans # 0.03 <=0.03 10*3/uL 12/11/2024 12:32 PM EDT [facility] Lymphocyte # 2.00 0.85 - 3.90 10*3/uL 12/11/2024 12:32 PM EDT [facility] Monocyte # 0.40 0.20 - 0.95 10*3/uL 12/11/2024 12:32 PM EDT [facility] Eosinophil # 0.30 0.02 - 0.50 10*3/uL 12/11/2024 12:32 PM EDT [facility] Basophil # <0.03 0.00 - 0.20 10*3/uL 12/11/2024 12:32 PM EDT [facility] nRBC % 0.0 /100 WBCs 12/11/2024 12:32 PM EDT [facility] nRBC # <0.01 <0.01 10*3/uL 12/11/2024 12:32 PM EDT [facility] Blood Structure of peripheral vein / Unknown Venipuncture / Unknown 12/11/2024 12:08 PM EDT 12/11/2024 12:24 PM EDT Franklin Flowers MD LAB BLOOD ORDERABLES [place] Result [facility] [address] [place] [address], * Hepatitis C Antibody w/Reflex to PCR (12/11/2024 12:08 PM EDT) Hepatitis C Antibody NON-REACT MARSHALL NON-REACT MARSHALL 12/12/2024 6:33 AM EDT [facility] [employer] Comment: HCV antibody was non-reactive. There is no laboratory evidence of HCV infection. In most cases, no further action is required. However, if recent HCV exposure is suspected, a test for HCV RNA (test code 44446) is suggested. For additional information please refer to http://education.Greenlots/faq/LXP65q1 (This link is being provided for informational/ educational purposes only.) Blood Structure of peripheral vein / Unknown Venipuncture / Unknown 12/11/2024 12:08 PM EDT 12/11/2024 12:23 PM EDT Narrative [facility] - 12/12/2024 6:33 AM EDT [facility] Received Date: Franklin Flowers MD LAB BLOOD ORDERABLES [place] Result Performing Organization Address City/[facility]/ZIP Co de Phone Number [facility] [address] [facility] [address] [facility], [place] [address], [place] [phone] [facility] [address], [place] [address], [place] [phone] * Phosphorus (12/11/2024 12:08 PM EDT) Phosphorus 3.4 2.5 - 4.5 mg/dL 12/11/2024 12:59 PM EDT [facility] Blood Structure of peripheral vein / Unknown Venipuncture / Unknown 12/11/2024 12:08 PM EDT 12/11/2024 12:26 PM EDT Franklin Flowers MD LAB BLOOD ORDERABLES [place] Result [facility] [address] [place] [address], [place] * (ABNORMAL) Microalbumin, Random Urine with Creatinine (08/07/2023 9:01 AM EST) Creatinine, Random Urine 92 20 - 275 mg/dL 08/08/2023 6:45 PM EST [facility] Microalbumin 150.8 mg/dL 08/08/2023 6:45 PM EST [facility] Comment: Verified by repeat analysis. Reference Range Not established Microalbumin/Crea tinine Ratio, Random Urine 1,639(H) <30 mcg/mg creat 08/08/2023 6:45 PM EST [facility] Comment: The ADA defines abnormalities in albumin [...] [facility] [address], [place] [address], [employer] [facility] [address] [place] [address] * (ABNORMAL) Vitamin D, 25-Hydroxy, Total, Immunoassay (06/05/2023 11:53 AM EDT) Calcidiol+ercalc idiol 22(L) 30 - 100 ng/mL 06/05/2023 9:28 PM EDT [facility] Comment: Vitamin D Status 25-OH Vitamin D: Deficiency: <20 ng/mL Insufficiency: 20 - 29 ng/mL Optimal: > or = 30 ng/mL For 25-OH Vitamin D testing on patients on D2-supplementation and patients for whom quantitation of D2 and D3 fractions is required, the QuestAssureD(TM) 25-OH VIT D, (D2,D3), LC/MS/MS is recommended: order code 27660 (patients >2yrs). See Note 1 Note 1 For additional information, please refer to http://education.Vitryn/faq/VUH184 (This link is being provided for informational/ educational purposes only.) Blood Structure of peripheral vein / Unknown 06/05/2023 11:53 AM EDT 06/05/2023 7:56 PM EDT [facility] - 06/09/2023 5:04 AM EDT FASTING:NO Anupama Bynum LAB BLOOD ORDERABLES Final Resul t Performing Organization Address [facility] Co de Phone Number [facility] [address], [place] [address], [place] [phone] [facility] [address] [address] * (ABNORMAL) PTH, Intact (without Calcium) (06/05/2023 11:53 AM EDT) Parathyroid Hormone, Intact 205(H) 16 - 77 pg/mL 06/06/2023 1:16 AM EDT [facility] Comment: Interpretive Guide Intact PTH Calcium ------- Normal Parathyroid Normal Normal Hypoparathyroidism Low or Low Normal Low Hyperparathyroidism Primary Normal or High High Secondary High Normal or Low Tertiary High High Non-Parathyroid Hypercalcemia Low or Low Normal High Blood Structure of peripheral vein / Unknown 06/05/2023 11:53 AM EDT 06/05/2023 11:02 PM EDT [facility] - 06/09/2023 5:04 AM EDT FASTING:NO Anupama Bynum DO LAB BLOOD ORDERABLES Final Resul t Performing Organization Address [facility] de Phone Number [facility] [address], [place] [address], [place] [phone] [facility] [address] [address] * (ABNORMAL) Renal Function Panel (06/05/2023 11:53 AM EDT) Glucose 89 65 - 139 mg/dL 06/05/2023 10:49 PM EDT [facility] Comment: Non-fasting reference interval BUN 39(H) 7 - 25 mg/dL 06/05/2023 10:49 PM EDT [facility] Creatinine 2.61(H) 0.50 - 1.03 mg/dL 06/05/2023 10:49 PM EDT [facility] eGFR 21(L) > OR = 60 mL/min/1. 73m2 06/05/2023 10:49 PM EDT [facility] Bun/Creatinine Ratio 15 6 - 22 (calc) 06/05/2023 10:49 PM EDT [facility] Sodium 137 135 - 146 mmol/L 06/05/2023 10:49 PM EDT [facility] Potassium 4.6 3.5 - 5.3 mmol/L 06/05/2023 10:49 PM EDT [facility] Chloride 111(H) 98 - 110 mmol/L 06/05/2023 10:49 PM EDT [facility] Carbon Dioxide 18(L) 20 - 32 mmol/L 06/05/2023 10:49 PM EDT [facility] Calcium 9.8 8.6 - 10.4 mg/dL 06/05/2023 10:49 PM EDT [facility] Phosphate 3.5 2.5 - 4.5 mg/dL 06/05/2023 10:49 PM EDT [facility] Albumin 4.0 3.6 - 5.1 g/dL 06/05/2023 10:49 PM EDT [facility] Blood Structure of peripheral vein / Unknown 06/05/2023 11:53 AM EDT 06/05/2023 7:56 PM EDT Narrative [facility] - 06/09/2023 5:04 AM EDT FASTING:NO us Anupama Bynum DO LAB BLOOD ORDERABLES Final Resul t [facility] [address] [facility] 3rd Floor, [place] [address], [facility] [address] [place] [address] from Last 3 Months or Most Recently Relevant to Health Maintenance Insurance * Guarantor: Aneta Gan Account Type Relation to Patient Date of Phone Billing Address Personal/Family Self 1965 [phone] (Work) [address] [place] [address] [facility] * Guarantor: GanJuditha Account Type Relation to Patient Date of Phone Billing Address Transplant Self 1965 [phone] (Work) [address] [place] [address] [facility] Advance Directives Documents on File Type Date Recorded Patient Director Of Veterans Affairs Expl anation Health Care Proxy 12/25/2024 8:48 AM 12/11 Care Teams Motion Picture Camera Operator Relationship Specialty Start Date End Date Franklin Sanchez PA [address] [place] [id number] PCP - General 06/05/23
== END 2025-07-22 14:14 | disposition home or self-care (01) ==
LOC: HO.ACS 13:49
PROVIDERS: PCP Physician Assistant; Visit Provider Internal Medicine Medical Oncology
DX: Z79.01 Long term (current) use of anticoagulants (principal)

== ENCOUNTER → 2025-07-22 13:49 | Outpatient (BNVA) | payer OTHER, MEDICAID, SELFPAY | PROVIDERS: PCP Physician Assistant; Visit Provider Internal Medicine Medical Oncology | DX: I26.99 Other pulmonary embolism without acute cor pulmonale (principal); Z79.01 Long term (current) use of anticoagulants; Z51.81 Encounter for therapeutic drug level monitoring | CPT/HCPCS: 85610; 99211 ==

== ENCOUNTER 2025-07-27 07:53 | Outpatient (AMB) | payer OTHER, MEDICAID, SELFPAY ==
--- OUTSIDE RECORDS SUMMARY | 2025-07-27 07:55 | XMS_ITS | Clinical Summary ---
Author Organization [facility] Address [address] [place] [address] Care Team Providers Care Inspector Optical Instrument Name Role Phone Franklin Sanchez Primary Care Provider [phone] Allergies Active Allergy Reactions Criticality Noted Date [...] propionate (FLONASE) 50 mcg/actuation nasal spray SMARTSI [place](s) Both Nares Twice Daily 5 Active sodium [...] Info) Description 12/08/2025 8:20 AM EDT Follow-Up [facility] Renal Transplant [address] [place] [address] Franklin Flowers MD [address] [place] [address] 12/08/2025 9:00 AM EDT Social Work [facility] Renal Transplant [address] [place] [address] DerickDelores, CANAL LOCK TENDER CHIEF OPERATOR [address] [place] [address] Health Maintenance Due Date Last Done Comments [...] this topic Procedures * Due to [place] [employer] law, this organization might not be sharing [...] Maintenance Results * Due to [place] [employer] law, this organization might not be sharing negative HIV tests. * (ABNORMAL) CBC Auto Differential (12/11/2024 12:08 PM EDT) WBC 6.6 3.8 - 10.8 10*3/uL 12/11/2024 12:32 PM EDT [facility] RBC 3.52(L) 3.80 - 5.10 10*6/uL 12/11/2024 12:32 PM EDT [facility] Hemoglobin 10.4(L) 11.7 - 15.5 g/dL 12/11/2024 12:32 PM EDT [facility] Hematocrit 33.1(L) 35.0 - 45.0 % 12/11/2024 12:32 PM EDT [facility] MCV 94.0 80.0 - 100.0 fL 12/11/2024 12:32 PM EDT [facility] MCH 29.5 27.0 - 33.0 pg 12/11/2024 12:32 PM EDT [facility] MCHC 31.4(L) 32.0 - 36.0 g/dL 12/11/2024 12:32 PM EDT [facility] RDW 13.3 11.0 - 15.0 % 12/11/2024 12:32 PM EDT [facility] Platelets 289 140 - 400 10*3/uL 12/11/2024 12:32 PM EDT [facility] MPV 10.4 7.5 - 12.5 fL 12/11/2024 12:32 PM EDT [facility] Neutrophil % 58.9 % 12/11/2024 12:32 PM EDT [facility] Immature Grans % 0.5 0.0 - 0.9 % 12/11/2024 12:32 PM EDT [facility] Lymphocyte % 30.5 % 12/11/2024 12:32 PM EDT [facility] Monocyte % 5.8 % 12/11/2024 12:32 PM EDT [facility] Eosinophil % 3.8 % 12/11/2024 12:32 PM EDT [facility] Basophil % 0.5 % 12/11/2024 12:32 PM EDT [facility] Neutrophil # 3.86 1.50 - 7.80 10*3/uL 12/11/2024 12:32 PM EDT [facility] Immature Grans # 0.03 <=0.03 10*3/uL 12/11/2024 12:32 PM EDT [facility] Lymphocyte # 2.00 0.85 - 3.90 10*3/uL 12/11/2024 12:32 PM EDT [facility] Monocyte # 0.40 0.20 - 0.95 10*3/uL 12/11/2024 12:32 PM EDT [facility] Eosinophil # 0.30 0.02 - 0.50 10*3/uL 12/11/2024 12:32 PM EDT [facility] Basophil # <0.03 0.00 - 0.20 10*3/uL 12/11/2024 12:32 PM EDT [facility] nRBC % 0.0 /100 WBCs 12/11/2024 12:32 PM EDT [facility] nRBC # <0.01 <0.01 10*3/uL 12/11/2024 12:32 PM EDT [facility] Blood Structure of peripheral vein / Unknown Venipuncture / Unknown 12/11/2024 12:08 PM EDT 12/11/2024 12:24 PM EDT Franklin Flowers MD LAB BLOOD ORDERABLES [place] l Result [facility] [address] [place] [address], * Hepatitis C Antibody w/Reflex to PCR (12/11/2024 12:08 PM EDT) Hepatitis C Antibody NON-REACT MARSHALL NON-REACT MARSHALL 12/12/2024 6:33 AM EDT [facility] Comment: HCV antibody was non-reactive. There is no laboratory evidence of HCV infection. In most cases, no further action is required. However, if recent HCV exposure is suspected, a test for HCV RNA (test code 89344) is suggested. For additional information please refer to http://education.BidPal Network/faq/IIW15u9 (This link is being provided for informational/ educational purposes only.) Blood Structure of peripheral vein / Unknown Venipuncture / Unknown 12/11/2024 12:08 PM EDT 12/11/2024 12:23 PM EDT Narrative [facility] - 12/12/2024 6:33 AM EDT [facility] Received Date: Franklin Flowers MD LAB BLOOD ORDERABLES [place] Result Performing Organization Address City/[facility]/ZIP Co de Phone Number [facility] [address] [facility] [address] [facility], [place] [address], [place] [phone], [place] [address], [place] [phone] * Phosphorus (12/11/2024 12:08 PM EDT) Phosphorus 3.4 2.5 - 4.5 mg/dL 12/11/2024 12:59 PM EDT [facility] Blood Structure of peripheral vein / Unknown Venipuncture / Unknown 12/11/2024 12:08 PM EDT 12/11/2024 12:26 PM EDT Franklin Flowers MD LAB BLOOD ORDERABLES [place] Result [facility] [address] [place] [address], [place] * (ABNORMAL) Microalbumin, Random Urine with Creatinine (08/07/2023 9:01 AM EST) Creatinine, Random Urine 92 20 - 275 mg/dL 08/08/2023 6:45 PM EST [email or web address] Microalbumin 150.8 mg/dL 08/08/2023 6:45 PM EST [facility] Comment: Verified by repeat analysis. Reference Range Not established Microalbumin/Crea tinine Ratio, Random Urine 1,639(H) <30 mcg/mg creat 08/08/2023 6:45 PM EST [facility] Comment: The ADA defines abnormalities in albumin [...] ORDERABLES Final Resul t [facility] [address] [facility] 3rd Floor, [place] [address], [facility] [address] [place] [address] * (ABNORMAL) Vitamin D, 25-Hydroxy, Total, Immunoassay (06/05/2023 11:53 AM EDT) Calcidiol+ercalc idiol 22(L) 30 - 100 ng/mL 06/05/2023 9:28 PM EDT [facility] Comment: Vitamin D Status 25-OH Vitamin D: Deficiency: <20 ng/mL Insufficiency: 20 - 29 ng/mL Optimal: > or = 30 ng/mL For 25-OH Vitamin D testing on patients on D2-supplementation and patients for whom quantitation of D2 and D3 fractions is required, the QuestAssureD(TM) 25-OH VIT D, (D2,D3), LC/MS/MS is recommended: order code 87352 (patients >2yrs). See Note 1 Note 1 For additional information, please refer to http://education.Pfeffermind Games/faq/ROD675 (This link is being provided for informational/ educational purposes only.) Blood Structure of peripheral vein / Unknown 06/05/2023 11:53 AM EDT 06/05/2023 7:56 PM EDT [facility] - 06/09/2023 5:04 AM EDT FASTING:NO Anupama Bynum LAB BLOOD ORDERABLES Final Resul t Performing Organization Address [facility] Co de Phone Number [facility] [address], [place] [address], [place] [phone] [address] * (ABNORMAL) PTH, Intact (without Calcium) (06/05/2023 11:53 AM EDT) Parathyroid Hormone, Intact 205(H) 16 - 77 pg/mL 06/06/2023 1:16 AM EDT [email or web address] Comment: Interpretive Guide Intact PTH Calcium ------- Normal Parathyroid Normal Normal Hypoparathyroidism Low or Low Normal Low Hyperparathyroidism Primary Normal or High High Secondary High Normal or Low Tertiary High High Non-Parathyroid Hypercalcemia Low or Low Normal High Blood Structure of peripheral vein / Unknown 06/05/2023 11:53 AM EDT 06/05/2023 11:02 PM EDT [facility] - 06/09/2023 5:04 AM EDT FASTING:NO Anupama Bynum DO LAB BLOOD ORDERABLES Final Resul t Performing Organization Address [facility] de Phone Number [facility] [address], [place] [address], [place] [phone] [address] * (ABNORMAL) Renal Function Panel (06/05/2023 11:53 AM EDT) Glucose 89 65 - 139 mg/dL 06/05/2023 10:49 PM EDT [email or web address] Comment: Non-fasting reference interval BUN 39(H) 7 - 25 mg/dL 06/05/2023 10:49 PM EDT [email or web address] Creatinine 2.61(H) 0.50 - 1.03 mg/dL 06/05/2023 10:49 PM EDT [email or web address] eGFR 21(L) > OR = 60 mL/min/1. 73m2 06/05/2023 10:49 PM EDT [email or web address] Bun/Creatinine Ratio 15 6 - 22 (calc) 06/05/2023 10:49 PM EDT [email or web address] Sodium 137 135 - 146 mmol/L 06/05/2023 10:49 PM EDT [email or web address] Potassium 4.6 3.5 - 5.3 mmol/L 06/05/2023 10:49 PM EDT [email or web address] Chloride 111(H) 98 - 110 mmol/L 06/05/2023 10:49 PM EDT [email or web address] Carbon Dioxide 18(L) 20 - 32 mmol/L 06/05/2023 10:49 PM EDT [email or web address] Calcium 9.8 8.6 - 10.4 mg/dL 06/05/2023 10:49 PM EDT [email or web address] Phosphate 3.5 2.5 - 4.5 mg/dL 06/05/2023 10:49 PM EDT [email or web address] Albumin 4.0 3.6 - 5.1 g/dL 06/05/2023 10:49 PM EDT [email or web address] Blood Structure of peripheral vein / Unknown 06/05/2023 11:53 AM EDT 06/05/2023 7:56 PM EDT Narrative [facility] - 06/09/2023 5:04 AM EDT FASTING:NO us Anupama Bynum DO LAB BLOOD ORDERABLES Final Resul t [facility] [address] [facility] 3rd [address], [place] [address], [facility] [address] [place] [address] from Last 3 Months or Most Recently Relevant to Health Maintenance Insurance * Guarantor: Aneta Gan Account Type Relation to Patient Date of Phone Billing Address Personal/Family Self 1965 [phone] (Work) [address] [place] [address] [facility] * Guarantor: GanJuditha Account Type Relation to Patient Date of Phone Billing Address Transplant Self 1965 [phone] (Work) [address] [place] [address] [facility] Advance Directives Documents on File Type Date Recorded Patient Plastic Jig And Fixture Builder Expl anation Health Care Proxy 12/25/2024 8:48 AM 12/11 Care Teams Inspector Optical Instrument Relationship Specialty Start Date End Date Franklin Sanchez PA [address] [place] [id number] PCP - General 06/05/23
--- OUTSIDE RECORDS SUMMARY | 2025-07-27 07:55 | XMS_ITS | Clinical Summary ---
Author Organization [facility] Address [address] [place] [address] Phone Care Team Providers Care Talent Consultant Name Role Phone Unavailable Primary Care [...] 03/02/2016 Active ergocalciferol (VITAMIN D-2) 1.25 MG (67674 UT) capsule Take 1 capsule by mouth [...] Comments Breast Cancer Screening 1965 Pneumococcal Vaccine: 50+ Ye ars (1 of 2 - PCV) 1984 Colorectal Cancer Screening: Annual FOBT 2014 Colorectal Cancer Screening: Colonoscopy 2014 Colorectal Cancer Screening: Sigmoidoscopy 2014 Influenza Vaccine (#1) 2025 Hepatitis B Vaccine Aged Out No longe r eligible based on patient's age to complete this topic Insurance [facility] Medicaid [place] [facility] [place]
--- OUTSIDE RECORDS SUMMARY | 2025-07-27 07:55 | XMS_ITS ---
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
--- OUTSIDE RECORDS SUMMARY | 2025-07-27 07:55 | XMS_ITS | Encounter Summary ---
Author Organization [facility] Address [address] [place] [address] Phone Care Team Providers Care Malt Loader Name Role Phone Unavailable Primary Care Provider Unavailabl e Encounter Details Date Type Department Care Team (Late st Contact Info) Description 08/10/2022 Telephone [facility] [address] [place] [address] Roe Morrissey MD Social History [...] Iris Gee - 08/10/2022 10:19 AM EST [facility] insurance verification called, pt will need [...] EDT) Calcium 9.1 8.4 - 10.2 mg/dL [place] 11/06/2022 4:20 PM EDT 11/06/2022 4:20 PM EDT Roe Morrissey MD LAB BLOOD ORDERABLES Final Res ult [place] * (ABNORMAL) Creatinine (11/06/2022 4:20 PM EDT) Creatinine Serum 2.59(H) 0.5 - 1.4 mg/dL [facility] eGFR (Calc) 19 [facility] Comment: NOTE: For -Beninese individuals, multiply the result by 1.210. Chronic Kidney Disease: Estimated GFR < 60 mL/min/1.73m2 Severe Kidney Disease: Estimated GFR < 15 mL/min/1.73m2 11/06/2022 4:2 0 PM EDT 11/06/2022 4:20 PM EDT Roe Morrissey MD LAB BLOOD ORDERABLES Final Res ult Performing Organization Address City/[facility]/ZIP Co de Phone Number [place] * (ABNORMAL) BUN (11/06/2022 4:20 PM EDT) BUN 44(H) 9 - 16 mg/dL [place] [facility] 11/06/2022 4:20 PM EDT 11/06/2022 4:20 PM EDT Roe Morrissey MD LAB BLOOD ORDERABLES Final Res ult [place] * (ABNORMAL) Electrolyte panel (11/06/2022 4:20 [...]
[2025-07-27 08:00] LABS: Prothrombin Time Whole Bld POC 25.2 sec (11.1-13.5); ~PT, ~INR - Anti Coag Clinic 2.1 (0.9-1.1)
--- NOTE | 2025-07-27 08:07 | MHC.OFFVISCO ---
Intake Intake Visit Reasons: Anticoagulation Allergies rituximab (From Rituxan) Allergy (Severe, Verified 07/27/25 07:54) Anaphylaxis cephalexin (From Keflex) Allergy (Unknown, Verified 07/27/25 07:54) RED+ITCHY,RASH Cephalosporins (CEPHALOSPORINS) Allergy (Unknown, Verified 07/27/25 07:54) RED+ITCHY Sulfa (Sulfonamide Antibiotics) (SULFA(SULFONAMIDE ANTIBIOTICS)) Allergy (Unknown, Verified 07/27/25 07:54) RED+ITCHY mycophenolate mofetil (From CellCept) Adverse Reaction (Intermediate, Verified 07/27/25 07:54) rash cellcept Allergy (Severe, Uncoded 07/27/25 07:54) Hives retuxin Adverse Reaction (Severe, Uncoded 07/27/25 07:54) Abdominal Pain Medication List - Last Reconciled 07/27/25 by Jessica Leary RN atorvastatin 20 mg PO BEDTIME 30 days calcitriol 0.25 mcg PO DAILY clobetasol 0.05% 1 appl topical DAILY fluocinonide 0.05% appl topical gabapentin 200 mg (2 x 100 mg) PO DAILY PRN 90 days levothyroxine 100 mcg PO DAILY lisinopril 2.5 mg PO DAILY loratadine 10 mg PO DAILY PRN magnesium oxide 250 mg PO BID prednisone 2.5 mg PO DAILY sodium bicarbonate 650 mg PO BID warfarin 5 mg See Protocol PO DAILY Nursing Note INR: 2.1 in therapeutic range Medications and supplements reviewed Pt to have all upper teeth removed today - she did not have to hold warfarin Denies any signs and symptoms of bleeding or bruising or clotting. Bleeding, bruising, clotting discussed cold wet compress and or salt water hold in mouth if any bleeding and call oral surgeon if bleeding doesn't stop. Nutritional guidance given -only have foods at room temp or colder, Dose: keep same dose for now 5mg tue/ 2.5mg x 6 days - any bleeding complications hold today's dose and follow your PCP or oral surgeon instructions F/U INR: 1 week Patient verbalizes understanding of instructions given Anti-Coag Initial Assessment Social Hx Patient Tobacco Use Status: Former Tobacco user Tobacco use type: Cigarette alcohol intake: former Alcohol intake frequency: does not drink Coding Level of Care Code Est Patient Level 1 Diagnoses Current use of anticoagulant therapy Z79.01 Results AMB INR Fingerstick AMB INR Fingerstick 2.1 Last Edit by Jessica Leary RN on 07/27/25 08:00 manual entry Assessment & Plan Assessment & Plan (1) Current use of anticoagulant therapy: Code(s): Z79.01 - generation engineer (current) use of anticoagulants Category: Medical
== END 2025-07-27 08:19 | disposition home or self-care (01) ==
LOC: HO.ACS 07:53
PROVIDERS: PCP Physician Assistant; Visit Provider Internal Medicine Medical Oncology
DX: Z79.01 Long term (current) use of anticoagulants (principal)

== ENCOUNTER → 2025-07-27 07:53 | Outpatient (BNVA) | payer OTHER, MEDICAID, SELFPAY | PROVIDERS: PCP Physician Assistant; Visit Provider Internal Medicine Medical Oncology | DX: I26.99 Other pulmonary embolism without acute cor pulmonale (principal); Z51.81 Encounter for therapeutic drug level monitoring; Z79.01 Long term (current) use of anticoagulants | CPT/HCPCS: 85610; 99211 ==

== ENCOUNTER 2025-08-03 09:34 | Outpatient (AMB) | payer OTHER, MEDICAID, SELFPAY ==
[2025-08-03 10:01] LABS: Prothrombin Time Whole Bld POC 22.3 sec (11.1-13.5); ~PT, ~INR - Anti Coag Clinic 1.9 (0.9-1.1)
--- NOTE | 2025-08-03 10:01 | MHC.OFFVISCO ---
Intake Intake Visit Reasons: Anticoagulation Allergies rituximab (From Rituxan) Allergy (Severe, Verified 08/03/25 09:47) Anaphylaxis cephalexin (From Keflex) Allergy (Unknown, Verified 08/03/25 09:47) RED+ITCHY,RASH Cephalosporins (CEPHALOSPORINS) Allergy (Unknown, Verified 08/03/25 09:47) RED+ITCHY Sulfa (Sulfonamide Antibiotics) (SULFA(SULFONAMIDE ANTIBIOTICS)) Allergy (Unknown, Verified 08/03/25 09:47) RED+ITCHY mycophenolate mofetil (From CellCept) Adverse Reaction (Intermediate, Verified 08/03/25 09:47) rash cellcept Allergy (Severe, Uncoded 07/27/25 07:54) Hives retuxin Adverse Reaction (Severe, Uncoded 07/27/25 07:54) Abdominal Pain Medication List - Last Reconciled 08/03/25 by Stephanie Tran, RN atorvastatin 20 mg PO BEDTIME 30 days calcitriol 0.25 mcg PO DAILY clobetasol 0.05% 1 appl topical DAILY fluocinonide 0.05% appl topical gabapentin 200 mg (2 x 100 mg) PO DAILY PRN 90 days levothyroxine 100 mcg PO DAILY lisinopril 2.5 mg PO DAILY loratadine 10 mg PO DAILY PRN magnesium oxide 250 mg PO BID prednisone 2.5 mg PO DAILY sodium bicarbonate 650 mg PO BID warfarin 5 mg See Protocol PO DAILY Nursing Note NO CP,SOB,DIT/MED CHANGES,FALLS OR S O BLEEDING. BOOST TO 5MGM TODAY AND RETEST ON 08/12/25. GOOD UNDERSTANDING OF DOSING INSTR. Anti-Coag Initial Assessment Social Hx Patient Tobacco Use Status: Former Tobacco user Tobacco use type: Cigarette alcohol intake: former Alcohol intake frequency: does not drink Coding Level of Care Code Est Patient Level 1 Diagnoses Current use of anticoagulant therapy Z79.01 Results AMB INR Fingerstick AMB INR Fingerstick 1.9 Last Edit by Stephanie Tran RN on 08/03/25 09:56 Assessment & Plan Assessment & Plan (1) Current use of anticoagulant therapy: Code(s): Z79.01 - longterm (current) use of anticoagulants Category: Medical
--- OUTSIDE RECORDS SUMMARY | 2025-08-03 10:10 | XMS_ITS ---
Author Organization [facility] Address [address] [place] [address] Care Team Providers Care Neurology Professor Name Role Phone Franklin Sanchez Primary Care Provider [phone] Transplant Episode Kidney Candidate [facility] ([place], [place]) 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
--- OUTSIDE RECORDS SUMMARY | 2025-08-03 10:10 | XMS_ITS | Clinical Summary ---
Author Organization [facility] Address [address] [place] [address] Care Team Providers Care Word Processor Operator Name Role Phone Franklin Sanchez Primary Care Provider Allergies Active Allergy Reactions Criticality Noted Date [...] propionate (FLONASE) 50 mcg/actuation nasal spray SMARTSI Zimmerman(s) Both Nares Twice Daily 5 Active sodium [...] Info) Description 12/08/2025 8:20 AM EDT Follow-Up [facility] Transplant [address] [place] [address] Franklin Flowers MD [address] [place] [address] 12/08/2025 9:00 AM EDT Social Work [facility] Renal Transplant [address] [place] [address] DerickDelores, GRINDING SUPERVISOR [address] [place] [address] Health Maintenance Due Date Last Done Comments [...] complete this topic Procedures * Due to [place] [employer] law, this organization might not be sharing [...] Health Maintenance Results * Due to [place] [employer] law, this organization might not be sharing negative HIV tests. * (ABNORMAL) CBC Auto Differential (12/11/2024 12:08 PM EDT) WBC 6.6 3.8 - 10.8 10*3/uL 12/11/2024 12:32 PM EDT [facility] RBC 3.52(L) 3.80 - 5.10 10*6/uL 12/11/2024 12:32 PM EDT [facility] Hemoglobin 10.4(L) 11.7 - 15.5 g/dL 12/11/2024 12:32 PM EDT [facility] Hematocrit 33.1(L) 35.0 - 45.0 % 12/11/2024 12:32 PM EDT [facility] MCV 94.0 80.0 - 100.0 fL 12/11/2024 12:32 PM EDT [facility] MCH 29.5 27.0 - 33.0 pg 12/11/2024 12:32 PM EDT [facility] MCHC 31.4(L) 32.0 - 36.0 g/dL 12/11/2024 12:32 PM EDT [facility] RDW 13.3 11.0 - 15.0 % 12/11/2024 12:32 PM EDT [facility] Platelets 289 140 - 400 10*3/uL 12/11/2024 12:32 PM EDT [facility] MPV 10.4 7.5 - 12.5 fL 12/11/2024 12:32 PM EDT [facility] Neutrophil % 58.9 % 12/11/2024 12:32 PM EDT [facility] Immature Grans % 0.5 0.0 - 0.9 % 12/11/2024 12:32 PM EDT [facility] Lymphocyte % 30.5 % 12/11/2024 12:32 PM EDT [facility] Monocyte % 5.8 % 12/11/2024 12:32 PM EDT [facility] Eosinophil % 3.8 % 12/11/2024 12:32 PM EDT [facility] Basophil % 0.5 % 12/11/2024 12:32 PM EDT [facility] Neutrophil # 3.86 1.50 - 7.80 10*3/uL 12/11/2024 12:32 PM EDT [facility] Immature Grans # 0.03 <=0.03 10*3/uL 12/11/2024 12:32 PM EDT [facility] Lymphocyte # 2.00 0.85 - 3.90 10*3/uL 12/11/2024 12:32 PM EDT [facility] Monocyte # 0.40 0.20 - 0.95 10*3/uL 12/11/2024 12:32 PM EDT [facility] Eosinophil # 0.30 0.02 - 0.50 10*3/uL 12/11/2024 12:32 PM EDT [facility] Basophil # <0.03 0.00 - 0.20 10*3/uL 12/11/2024 12:32 PM EDT [facility] nRBC % 0.0 /100 WBCs 12/11/2024 12:32 PM EDT [facility] nRBC # <0.01 <0.01 10*3/uL 12/11/2024 12:32 PM EDT [facility] Blood Structure of peripheral vein / Unknown Venipuncture / Unknown 12/11/2024 12:08 PM EDT 12/11/2024 12:24 PM EDT Franklin Flowers MD LAB BLOOD ORDERABLES [place] Result [facility] [address] [place] [address], * Hepatitis C Antibody w/Reflex to PCR (12/11/2024 12:08 PM EDT) Hepatitis C Antibody NON-REACT MARSHALL NON-REACT MARSHALL 12/12/2024 6:33 AM EDT [facility] Comment: HCV antibody was non-reactive. There is no laboratory evidence of HCV infection. In most cases, no further action is required. However, if recent HCV exposure is suspected, a test for HCV RNA (test code 73880) is suggested. For additional information please refer to http://education.RateItAll/faq/SAI65q6 (This link is being provided for informational/ educational purposes only.) Blood Structure of peripheral vein / Unknown Venipuncture / Unknown 12/11/2024 12:08 PM EDT 12/11/2024 12:23 PM EDT Narrative [facility] - 12/12/2024 6:33 AM EDT [facility] Received Date: Franklin Flowers MD LAB BLOOD ORDERABLES [place] Result Performing Organization Address City/[facility]/ZIP Co de Phone Number [facility] [address] [facility] [address] [facility], [place] [address], [place] [phone] [employer] [employer] [address], [place] [address], [place] [phone] * Phosphorus (12/11/2024 12:08 PM EDT) Phosphorus 3.4 2.5 - 4.5 mg/dL 12/11/2024 12:59 PM EDT [facility] [employer] [facility] Blood Structure of peripheral vein / Unknown Venipuncture / Unknown 12/11/2024 12:08 PM EDT 12/11/2024 12:26 PM EDT Franklin Flowers MD LAB BLOOD ORDERABLES [place] Result [facility] [address] [place] [address], [place] * (ABNORMAL) Microalbumin, Random Urine with Creatinine (08/07/2023 9:01 AM EST) Creatinine, Random Urine 92 20 - 275 mg/dL 08/08/2023 6:45 PM EST [employer] [facility] Microalbumin 150.8 mg/dL 08/08/2023 6:45 PM EST [employer] Comment: Verified by repeat analysis. Reference Range Not established Microalbumin/Crea tinine Ratio, Random Urine 1,639(H) <30 mcg/mg creat 08/08/2023 6:45 PM EST [employer] Comment: The ADA defines abnormalities in albumin [...] [facility] [address], [place] [address], [employer] [facility] [address] [place] [address] * (ABNORMAL) Vitamin D, 25-Hydroxy, Total, Immunoassay (06/05/2023 11:53 AM EDT) Calcidiol+ercalc idiol 22(L) 30 - 100 ng/mL 06/05/2023 9:28 PM EDT [employer] Comment: Vitamin D Status 25-OH Vitamin D: Deficiency: <20 ng/mL Insufficiency: 20 - 29 ng/mL Optimal: > or = 30 ng/mL For 25-OH Vitamin D testing on patients on D2-supplementation and patients for whom quantitation of D2 and D3 fractions is required, the QuestAssureD(TM) 25-OH VIT D, (D2,D3), LC/MS/MS is recommended: order code 60452 (patients >2yrs). See Note 1 Note 1 For additional information, please refer to http://education.Notify Technology/faq/GTJ562 (This link is being provided for informational/ educational purposes only.) Blood Structure of peripheral vein / Unknown 06/05/2023 11:53 AM EDT 06/05/2023 7:[address] [facility] - 06/09/2023 5:04 AM EDT FASTING:NO Anupama Bynum LAB BLOOD ORDERABLES Final Resul t Performing Organization Address [facility] Co de Phone Number [facility] [address], [place] [address], [place] [phone] [employer] [employer] [address] [address] * (ABNORMAL) PTH, Intact (without Calcium) (06/05/2023 11:53 AM EDT) Parathyroid Hormone, Intact 205(H) 16 - 77 pg/mL 06/06/2023 1:16 AM EDT [employer] [facility] Comment: Interpretive Guide Intact PTH Calcium ------- Normal Parathyroid Normal Normal Hypoparathyroidism Low or Low Normal Low Hyperparathyroidism Primary Normal or High High Secondary High Normal or Low Tertiary High High Non-Parathyroid Hypercalcemia Low or Low Normal High Blood Structure of peripheral vein / Unknown 06/05/2023 11:53 AM EDT 06/05/2023 11:[address] [facility] - 06/09/2023 5:04 AM EDT FASTING:NO Anupama Bynum DO LAB BLOOD ORDERABLES Final Resul t Performing Organization Address [facility] de Phone Number [facility] [address], [place] [address], [place] [phone] [employer] [employer] [address] [address] * (ABNORMAL) Renal Function Panel (06/05/2023 11:53 AM EDT) Glucose 89 65 - 139 mg/dL 06/05/2023 10:49 PM EDT [employer] [employer] Comment: Non-fasting reference interval BUN 39(H) 7 - 25 mg/dL 06/05/2023 10:49 PM EDT [employer] [facility] Creatinine 2.61(H) 0.50 - 1.03 mg/dL 06/05/2023 10:49 PM EDT [employer] eGFR 21(L) > OR = 60 mL/min/1. 73m2 06/05/2023 10:49 PM EDT [employer] Bun/Creatinine Ratio 15 6 - 22 (calc) 06/05/2023 10:49 PM EDT [facility] Sodium 137 135 - 146 mmol/L 06/05/2023 10:49 PM EDT [facility] Potassium 4.6 3.5 - 5.3 mmol/L 06/05/2023 10:49 PM EDT [employer] [employer] [facility] Chloride 111(H) 98 - 110 mmol/L 06/05/2023 10:49 PM EDT [employer] [facility] Carbon Dioxide 18(L) 20 - 32 mmol/L 06/05/2023 10:49 PM EDT [facility] Calcium 9.8 8.6 - 10.4 mg/dL 06/05/2023 10:49 PM EDT [employer] Phosphate 3.5 2.5 - 4.5 mg/dL 06/05/2023 10:49 PM EDT [facility] Albumin 4.0 3.6 - 5.1 g/dL 06/05/2023 10:49 PM EDT [facility] Blood Structure of peripheral vein / Unknown 06/05/2023 11:53 AM EDT 06/05/2023 7:56 PM EDT Narrative [facility] - 06/09/2023 5:04 AM EDT FASTING:NO us Anupama Bynum DO LAB BLOOD ORDERABLES Final Resul t [facility] [address] [facility] [address], [place] [address], [employer] [facility] [address] [place] [address] from Last 3 Months or Most Recently Relevant to Health Maintenance Insurance * Guarantor: Aneta Gan Account Type Relation to Patient Date of Phone Billing Address Personal/Family Self 1965 [phone] (Work) [address] [place] [address] [facility] * Guarantor: GanJuditha Account Type Relation to Patient Date of Phone Billing Address Transplant Self 1965 [phone] (Work) [address] [place] [address] [facility] Advance Directives Documents on File Type Date Recorded Patient Power Switchboard Operator Expl anation Health Care Proxy 12/25/2024 8:48 AM 12/11 Care Teams Word Processor Operator Relationship Specialty Start Date End Date Franklin Sanchez PA [address] [place] [id number] PCP - General 06/05/23
== END 2025-08-03 10:03 | disposition home or self-care (01) ==
LOC: HO.ACS 09:34
PROVIDERS: PCP Physician Assistant; Visit Provider Internal Medicine Medical Oncology
DX: Z79.01 Long term (current) use of anticoagulants (principal)

== ENCOUNTER → 2025-08-03 09:34 | Outpatient (BNVA) | payer OTHER, MEDICAID, SELFPAY | PROVIDERS: PCP Physician Assistant; Visit Provider Internal Medicine Medical Oncology | DX: I26.99 Other pulmonary embolism without acute cor pulmonale (principal); Z51.81 Encounter for therapeutic drug level monitoring; Z79.01 Long term (current) use of anticoagulants | CPT/HCPCS: 85610; 99211 ==